=== PATIENT | female | born 1960 | race Caucasian/White ===

== ENCOUNTER 2022-03-17 06:47 | Inpatient (IN) ==
--- NOTE | 2022-03-17 07:14 | Emergency Department Note ---
Impression & Plan Pulmonary emboli, Fall, DVT (deep venous thrombosis), Left rib fracture ED Provider Note NAME: DESIREE VÁSQUEZ AGE: 61 SEX: F : 1960 ARRIVES VIA: Ambulance INFORMANT: [Patient] ED PROVIDER(S): [Felipe Albarado MD] CHIEF COMPLAINT: Fall HISTORY OF PRESENT ILLNESS: The patient is a 61-year-old female with a history of liver disease. She is not on any blood thinning medications. She was in baseline health yesterday. Patient states that this morning, she rolled and fell out of bed. She was not aware she was so close to the edge. She struck her chin on a nightstand. She injured her left side. She presents for evaluation via EMS. The patient complains of some moderate pain across the left side mainly at the left chest and left flank. She has some left knee pain as well. She does not want pain medication. Patient is not short of breath. She denies any headache. She states her neck is a bit stiff but she has not noticed any posterior midline discomfort. No left upper extremity discomfort. The patient does have ascites from her cirrhosis, her abdomen is always distended, her legs are always swollen. REVIEW OF SYSTEMS: See HPI for pertinent positives and negatives. A total of ten systems were reviewed and were otherwise negative. PMHx/PSHx: See Below SOCIAL HISTORY: See Below. PHYSICAL EXAM: GENERAL: Patient is in no acute distress. HEENT: No acute trauma, normocephalic atraumatic, mucous membranes moist, no nasal congestion, no scleral icterus. NECK: No stridor, no adenopathy, nontender cervical spine, trachea is midline. LUNGS: Clear to auscultation bilaterally, no wheeze, no rhonchi, breath sounds equal. On there is a contusion to the left lateral breast, she is tender here. HEART: 2/6 systolic murmur, regular rate and rhythm. ABDOMEN: Soft, tender in the left upper quadrant, no contusion seen. The abdomen is distended consistent with her liver disease and ascites. EXTREMITIES: No cyanosis. She has moderate bilateral pedal edema. There are some chronic skin changes to both lower extremities. There is a contusion present to the lateral aspect of the left knee, she is tender here. No gross deformity to the left knee. No pain to move the left hip. NEUROLOGIC: Oriented x 3, no acute motor or sensory deficits, no focal weakness. SKIN: No rash, no jaundice, no diaphoresis. DIFFERENTIAL DIAGNOSIS: Fracture, dislocation, contusion, intra-abdominal bleeding, pneumothorax, in trathoracic injury, intracranial injury, compartment syndrome, rhabdomyolysis, as well as other pathologies. EMERGENCY DEPARTMENT COURSE/PROCEDURES: ECG: Indication was fall. The ECG shows a sinus tachycardia with a rate of 101. There is potential old anterior infarct. There are some inverted T waves noted in the inferior leads. No ST elevation, no PVCs. The QTc is 471. Compared to an ECG from 21 January 2022, the inferior T wave changes are bit more pronounced. Continuous Cardiac Monitoring: An order was placed for continuous cardiac monitoring. The monitor shows a rate of 99 with normal sinus rhythm. Critical Care Note: I have personally spent 51 minutes of critical care time in the direct management of this patient. This includes bedside care, interpretation of diagnostic studies, and testing, discussion with consultants, patient, and family members, and other required patient management activities. This 51 minutes is in excess of all separately billable procedures. MEDICAL DECISION MAKING: There is no leukocytosis. A very mild anemia was seen. There was a normal platelet count. INR is slightly elevated at 1.4, likely from her liver disease. There was an elevation to the creatinine consistent with some acute kidney injury/dehydration. Bilirubin was mildly elevated, likely from her liver disease. Urinalysis shows what seems to be contamination. COVID test was negative. ECG showed a sinus tachycardia, no ST elevation. Brain CT shows no acute bleed or mass-effect. C-spine CT shows no acute fracture. Chest and abdominal CTs were performed, there was no intra-abdominal traumatic injury, ascites was seen. She has 3 rib fractures on the left without pneumothorax or pulmonary contusion. She has findings incidentally of saddle pulmonary emboli. Left knee film does not show fracture or dislocation. Bilateral lower extremity ultrasound shows a DVT on the left. I did go back and talk with the patient. She now admits to some increased dyspnea in the last 24 or so hours. She has no history of previous DVT or PE. The patient was given a 500 cc saline bolus. She did not want anything for pain. She was given a bolus of IV heparin and placed on a heparin drip. I spoke with the vegetable harvest worker, Dr. Coppola. Anticoagulation is indicated. Hospitalization is indicated. The patient can stay at our hospital for care. I spoke to the patient about her findings, I spoke with case management. I did speak with the on-call hospitalist. In short, the patient has suffered left rib fractures from her fall out of bed. Incidentally, she was found to have extensive pulmonary emboli. She will be hospitalized. Past Med/Surg History Medical History Asthma Diabetes Hepatic cirrhosis Surgical History (Updated 03/17/22 @ 11:19 by Corrine Huizar PA-C) Hx of cholecystectomy Family History (Updated 03/17/22 @ 12:10 by Corrine Huizar PA-C) Mother Hypertension Father Hypertension COPD (chronic obstructive pulmonary disease) Social History Smoking Status: Never smoker Hx Alcohol Use: No Hx Substance Use: No Preferred Language: Indonesian Feels Safe at Home: Yes Allergies Allergies Allergy/AdvReac Type Severity Reaction Status Date / Time No Known Allergies Allergy Verified 03/17/22 09:05 Home Meds Home Medications Medication Instructions Recorded Confirmed albuterol sulfate 90 mcg/actuation 2 puff inhalation Q4 PRN Shortness 01/21/22 03/17/22 aerosol inhaler Of Breath Or Wheezing metformin 500 mg tablet 500 mg PO BIDM 01/21/22 03/17/22 furosemide 20 mg tablet 20 mg PO QAM 03/17/22 03/17/22 insulin glargine 100 unit/mL (3 10 unit subcut QA 03/17/22 03/17/22 mL) subcutaneous pen (Lantus Solostar U-100 Insulin) spironolactone 50 mg tablet 100 mg PO QAM 03/17/22 03/17/22 Results & Data (ED) Vital Signs Vital Signs - 24 hr 03/17/22 06:56 03/17/22 08:50 03/17/22 10:00 Temperature 36.4 C L Temperature Source Oral Pulse Rate 99 H Pulse Rate [Apical] 100 H 96 H Pulse Rhythm Regular Pulse Rhythm [Apical] Regular Regular Pulse Strength [Apical] Respiratory Rate 20 23 22 Respiratory Effort / Characteristics Non-Labored Spontaneous Non-Labored Spontaneous Spontaneous Respiratory Depth Normal Normal Respiratory Pattern Regular Regular Blood Pressure 152/112 H Blood Pressure [Right Arm] 149/93 H 140/72 Blood Pressure Mean 125 Blood Pressure Mean [Right Arm] 111 94 Blood Pressure Position Semi-fowlers Blood Pressure Position [Right Arm] Semi-fowlers Pulse Oximetry 99 92 94 Oxygen Delivery Method Room Air Room Air Room Air Sepsis Recent Fever Within 48 Hours No Sepsis New/Unexplained Change in Mental Status No Sepsis Action Taken by Nursing No Action Required 03/17/22 12:00 03/17/22 13:16 03/17/22 13:35 Temperature Temperature Source Pulse Rate 95 H Pulse Rate [Apical] 94 H 95 H Pulse Rhythm Pulse Rhythm [Apical] Regular Pulse Strength [Apical] Normal Respiratory Rate Respiratory Effort / Characteristics Spontaneous Spontaneous Respiratory Depth Respiratory Pattern Regular Regular Blood Pressure 115/76 Blood Pressure [Right Arm] 122/81 110/83 Blood Pressure Mean Blood Pressure Mean [Right Arm] 94 92 Blood Pressure Position Blood Pressure Position [Right Arm] Semi-fowlers Pulse Oximetry 93 94 96 Oxygen Delivery Method Room Air Room Air Room Air Sepsis Recent Fever Within 48 Hours Sepsis New/Unexplained Change in Mental Status Sepsis Action Taken by [facility] Medications Current Medication List: was personally reviewed by me Laboratory Data Attestation: I reviewed the patient's lab results. Result diagrams: 03/17/22 07:20 03/17/22 07:20 Lab Results 03/17/22 03/17/22 03/17/22 Range/Units 07:20 07:20 07:20 WBC 6.20 (4.8-10.8) K/ul RBC 3.90 L (3.93-5.22) M/uL Hgb 11.4 L (12.0-16.0) g/dl Hct 34.6 (34.1-44.9) % MCV 88.7 (80.0-100.0) fL MCH 29.2 (25.0-34.0) pg MCHC 32.9 (32.0-36.0) g/dL RDW Std Deviation 50.3 H (36.4-46.3) fL RDW Coeff of Samy 15.6 H (11.5-14.5) % Plt Count 175 (130-400) K/uL MPV 9.5 (9.4-12.3) fL PT 14.9 H (9.0-12.0) Seconds INR 1.4 H (0.9-1.1) APTT 30.2 (21.0-31.0) Seconds PTT Ratio 1.1 Sodium 136 (136-145) mmol/L Potassium 3.5 (3.5-5.1) mmol/L Chloride 96 L (98-107) mmol/L Carbon Dioxide 30 (21-32) mmol/L Anion Gap 10 (3-11) BUN 34 H (6-23) mg/dl Creatinine 1.63 H (0.6-1.2) mg/dl Est Cr Clr Drug Dosing 48.4 ml/min Est GFR ( Amer) 39.6 ml/min Est GFR (Non-Af Amer) 34.1 ml/min BUN/Creatinine Ratio 20.9 H (10-20) Glucose 130 H (70-99(Fasting)) mg/dl Calcium 8.9 (8.5-10.1) mg/dl Total Bilirubin 1.4 H (0.2-1.0) mg/dl AST 21 (13-39) U/L ALT 12 (7-52) U/L Alkaline Phosphatase 66 (34-104) U/L Troponin I High Sens (0-14) pg/ml Total Protein 7.1 (6.0-8.3) gm/dl Albumin 3.4 (3.4-5.0) gm/dl Globulin 3.7 (2.5-4.0) gm/dl Albumin/Globulin Ratio 0.9 (0.9-2) 25-OH Vitamin D Total (30-100) ng/ml Urine Color Urine Appearance (Clear) Urine pH (4.5-7.5) Ur Specific [place] (1.000-1.030) Urine Protein (Negative) Urine Glucose (UA) (Negative) Urine Ketones (Negative) Urine Blood (Negative) Urine Nitrite (Negative) Urine Bilirubin (Negative) Urine Urobilinogen (Negative) Ur Leukocyte Esterase (Negative) Urine WBC (Auto) (0-5) /hpf Urine RBC (Auto) (0-4) /hpf U Hyaline Cast (Auto) (0-5) /lpf U Epithel Cells (Auto) (0-5) /lpf Urine Bacteria (Auto) (Negative) SARS-CoV-2, RNA, NAAT (NEGATIVE) 03/17/22 03/17/22 03/17/22 Range/Units 07:50 11:30 11:30 WBC (4.8-10.8) K/ul RBC (3.93-5.22) M/uL Hgb (12.0-16.0) g/dl Hct (34.1-44.9) % MCV (80.0-100.0) fL MCH (25.0-34.0) pg MCHC (32.0-36.0) g/dL RDW Std Deviation (36.4-46.3) fL RDW Coeff of Samy (11.5-14.5) % Plt Count (130-400) K/uL MPV (9.4-12.3) fL PT (9.0-12.0) Seconds INR (0.9-1.1) APTT (21.0-31.0) Seconds PTT Ratio Sodium (136-145) mmol/L Potassium (3.5-5.1) mmol/L Chloride (98-107) mmol/L Carbon Dioxide (21-32) mmol/L Anion Gap (3-11) BUN (6-23) mg/dl Creatinine (0.6-1.2) mg/dl Est Cr Clr Drug Dosing ml/min Est GFR ( Amer) ml/min Est GFR (Non-Af Amer) ml/min BUN/Creatinine Ratio (10-20) Glucose (70-99(Fasting)) mg/dl Calcium (8.5-10.1) mg/dl Total Bilirubin (0.2-1.0) mg/dl AST (13-39) U/L ALT (7-52) U/L Alkaline Phosphatase (34-104) U/L Troponin I High Sens 27.9 H D (0-14) pg/ml Total Protein (6.0-8.3) gm/dl Albumin (3.4-5.0) gm/dl Globulin (2.5-4.0) gm/dl Albumin/Globulin Ratio (0.9-2) 25-OH Vitamin D Total 13.8 L (30-100) ng/ml Urine Color Dark Yellow Urine Appearance Clear (Clear) Urine pH 5.0 (4.5-7.5) Ur Specific [place] 1.018 (1.000-1.030) Urine Protein 1+ H (Negative) Urine Glucose (UA) Negative (Negative) Urine Ketones Trace H (Negative) Urine Blood Negative (Negative) Urine Nitrite Negative (Negative) Urine Bilirubin 1+ H (Negative) Urine Urobilinogen Negative (Negative) Ur Leukocyte Esterase 2+ H (Negative) Urine WBC (Auto) 5-10 H (0-5) /hpf Urine RBC (Auto) 5-10 H (0-4) /hpf U Hyaline Cast (Auto) 5-10 H (0-5) /lpf U Epithel Cells (Auto) >30 H (0-5) /lpf Urine Bacteria (Auto) 1+ H (Negative) SARS-CoV-2, RNA, NAAT (NEGATIVE) 03/17/22 Range/Units 11:50 WBC (4.8-10.8) K/ul RBC (3.93-5.22) M/uL Hgb (12.0-16.0) g/dl Hct (34.1-44.9) % MCV (80.0-100.0) fL MCH (25.0-34.0) pg MCHC (32.0-36.0) g/dL RDW Std Deviation (36.4-46.3) fL RDW Coeff of Samy (11.5-14.5) % Plt Count (130-400) K/uL MPV (9.4-12.3) fL PT (9.0-12.0) Seconds INR (0.9-1.1) APTT (21.0-31.0) Seconds PTT Ratio Sodium (136-145) mmol/L Potassium (3.5-5.1) mmol/L Chloride (98-107) mmol/L Carbon Dioxide (21-32) mmol/L Anion Gap (3-11) BUN (6-23) mg/dl Creatinine (0.6-1.2) mg/dl Est Cr Clr Drug Dosing ml/min Est GFR ( Amer) ml/min Est GFR (Non-Af Amer) ml/min BUN/Creatinine Ratio (10-20) Glucose (70-99(Fasting)) mg/dl Calcium (8.5-10.1) mg/dl Total Bilirubin (0.2-1.0) mg/dl AST (13-39) U/L ALT (7-52) U/L Alkaline Phosphatase (34-104) U/L Troponin I High Sens (0-14) pg/ml Total Protein (6.0-8.3) gm/dl Albumin (3.4-5.0) gm/dl Globulin (2.5-4.0) gm/dl Albumin/Globulin Ratio (0.9-2) 25-OH Vitamin D Total (30-100) ng/ml Urine Color Urine Appearance (Clear) Urine pH (4.5-7.5) Ur Specific [place] (1.000-1.030) Urine Protein (Negative) Urine Glucose (UA) (Negative) Urine Ketones (Negative) Urine Blood (Negative) Urine Nitrite (Negative) Urine Bilirubin (Negative) Urine Urobilinogen (Negative) Ur Leukocyte Esterase (Negative) Urine WBC (Auto) (0-5) /hpf Urine RBC (Auto) (0-4) /hpf U Hyaline Cast (Auto) (0-5) /lpf U Epithel Cells (Auto) (0-5) /lpf Urine Bacteria (Auto) (Negative) SARS-CoV-2, RNA, NAAT NEGATIVE (NEGATIVE) Administered Medications Heparin Sodium/Dextrose (Heparin Sodium/Dextrose) 25,000 units in 500 mls @ 0.02 mls/hr IV .Q24H LETI; Protocol Stop: 04/16/22 10:29 Last Admin: 03/17/22 10:31 Dose: 1,500 units/hr, 30 mls/hr Documented By: RAYSA Co-signed By: GRICELDA Ceftriaxone Sodium 2,000 mg/ (Dextrose) 70 mls @ 140 mls/hr IV DAILY LETI; Protocol Stop: 03/27/22 11:14 Last Infusion: 03/17/22 12:59 Dose: 0 mls/hr Documented By: Admin: 03/17/22 12:05 Dose: 140 mls/hr Documented By: GRICELDA Albumin Human (Albumin 25% 100 Ml) 25 gm in 100 mls @ 50 mls/hr IV Q8H LETI Stop: 03/19/22 06:29 Last Admin: 03/17/22 13:32 Dose: 50 mls/hr Documented By: RAYSA Discontinued Medications Furosemide (Furosemide Inj 20 Mg/2 Ml Vial) 20 mg IV ONE ONE Stop: 03/17/22 12:34 Last Admin: 03/17/22 13:32 Dose: 20 mg Documented By: RAYSA Heparin Sodium (Porcine) (Heparin Sod (Porcine) 1000 Unit/Ml) 5,000 units IV NOW ONE Stop: 03/17/22 10:16 Last Admin: 03/17/22 10:28 Dose: 5,000 units Documented By: RAYSA Co-signed By: GRICELDA Heparin Sodium/Dextrose (Heparin Iv Adult Wt-Based Standard With Bolus Protocol) 1 each IV NOW STA; Protocol Stop: 03/17/22 10:07 Last Admin: 03/17/22 10:34 Dose: Not Given Documented By: RAYSA Sodium Chloride (Nss 1000ml) 500 mls @ 999 mls/hr IV .Q31M ONE Stop: 03/17/22 08:24 Last Infusion: 03/17/22 09:56 Dose: 0 mls/hr Documented By: Admin: 03/17/22 08:29 Dose: 999 mls/hr Documented By: RAYSA Ioversol (Optiray 320 100ml) 93 ml IV ONCE ONE Stop: 03/17/22 08:16 Last Admin: 03/17/22 08:04 Dose: 93 ml Documented By: MARCUS Imaging Data Radiologist's Impression: Abdomen/Pelvis CT 03/17/22 07:[address] WITH CONTRAST, ABDOMEN AND PELVIS CT WITH INTRAVENOUS CONTRAST CT DOSE: 3804.89 mGy.cm HISTORY: fall, left chest pain. Left flank pain. TECHNIQUE: Multiaxial CT images of the chest, abdomen, and pelvis were performed following the intravenous administration of contrast. A dose lowering technique was utilized adhering to the principles of ALARA. COMPARISON: Chest CTA and abdomen pelvis CT 01/21/2022. FINDINGS: Chest CT: There is an old moderate superior endplate compression deformity at T3. There is a subacute mild superior endplate compression fracture at T4. No associated retropulsion. Healing right anterior rib fractures are again noted. There are acute left anterior third through fifth rib fractures. There are few additional healing left anterior rib fractures also noted. Mild elevation the right hemidiaphragm. The central airways are patent. No pneumothorax. No pleural effusions. Bibasilar linear densities consistent with subsegmental atelectasis. Otherwise, no new focal lung consolidations to suggest pneumonia. No evidence for pulmonary edema. There is a 1 cm left thyroid nodule. This does not meet CT criteria for follow-up. Mild body wall edema with left breast skin thickening. No change in the anterior diaphragmatic lymphadenopathy. Subcentimeter distal paraesophageal lymph nodes are again noted. There is no hilar lymphadenopathy. Normal esophagus. The heart is normal in size. No evidence for right-sided heart strain. There is extensive bilateral pulmonary emboli with associated subtle embolus at the main pulmonary arteries. Abdomen/pelvis CT: There is a chronic moderate to severe superior endplate comp ression deformity at L4, unchanged. No pneumoperitoneum. No pneumatosis. Moderate to severe body wall edema is again noted. There is pelvic floor collapse. The bladder is decompressed. The uterus and bilateral adnexa are unremarkable. No bowel wall thickening or obstruction. There is a large amount of ascites which has slightly progressed. Cirrhotic liver and splenomegaly is again noted. The adrenal glands, pancreas, and kidneys unremarkable. No hydronephrosis. The main portal vein is patent. Mild periportal lymphadenopathy remains unchanged. Normal caliber abdominal aorta. Cholecystectomy. Stable partially calcified pelvic/inguinal lymph nodes. IMPRESSION: 1. Extensive bilateral pulmonary emboli including a saddle embolus within the main pulmonary arteries. No evidence for right-sided heart strain at this time. 2. Acute left anterior third through fifth rib fractures. No pneumothorax. 3. Additional subacute to chronic fractures within the chest and abdomen as described above. 4. Cirrhotic liver with splenomegaly and a large amount of ascites. This has slightly progressed. 5. Moderate to severe body wall edema again noted. 6. Mildly enlarged anterior diaphragmatic and periportal lymph nodes remain unchanged. ACT 112: Negative or not required by law. Electronically signed by: Abe Florentino M.D. 03/17/2022 9:[address] 03/17/22 07:05 CT SCAN OF THE CERVICAL SPINE CLINICAL HISTORY: Trauma. Fall. COMPARISON STUDY: No priors. TECHNIQUE: CT scan of the cervical spine is performed from the skull base to the upper thoracic spine. Images are reviewed in the axial, sagittal, and coronal planes. IV contrast was not administered for this examination. A dose lowering technique was utilized adhering to the principles of ALARA. FINDINGS: Skeletal structures: The skeletal structures are osteopenic. There is no evidence of fracture or subluxation involving the cervical spine. Vertebral body height and alignment are maintained. There is straightening of the cervical lordosis. The odontoid process and lateral masses are intact. The atlantoaxial articulation is preserved noting minimal productive degenerative change. The spinous processes appear intact. Intervertebral discs: There is moderate disc space narrowing at C5-C6. Mild na rrowing is seen at the remaining cervical levels. Central canal: Posterior disc osteophyte complexes at C4-C5 and C5-C6 may contribute to mild acquired compromise of the central canal. Soft tissues: The prevertebral and paraspinous soft tissues are within normal limits. There is atherosclerotic calcification of the carotid bulbs. Calvarium: The visualized calvarium at the skull base appears intact. Brain parenchyma: Partially visualized brain parenchyma at the skull base is within normal limits. Sinuses and mastoids: Trace fluid is noted in the sphenoid sinuses. The mastoid air cells are well pneumatized. Lung apices: Clear as visualized. IMPRESSION: 1. There is no evidence of fracture or subluxation involving the cervical spine. 2. Osteopenia and mild spondylotic change as above. ACT 112: Negative or not required by law. Electronically signed by: Felipe Aguirre M.D. 03/17/2022 8:[address] 03/17/22 07:[address] WITH CONTRAST, ABDOMEN AND PELVIS CT WITH INTRAVENOUS CONTRAST CT DOSE: 3804.89 mGy.cm HISTORY: fall, left chest pain. Left flank pain. TECHNIQUE: Multiaxial CT images of the chest, abdomen, and pelvis were performed following the intravenous administration of contrast. A dose lowering technique was utilized adhering to the principles of ALARA. COMPARISON: Chest CTA and abdomen pelvis CT 01/21/2022. FINDINGS: Chest CT: There is an old moderate superior endplate compression deformity at T3. There is a subacute mild superior endplate compression fracture at T4. No associated retropulsion. Healing right anterior rib fractures are again noted. There are acute left anterior third through fifth rib fractures. There are few additional healing left anterior rib fractures also noted. Mild elevation the right hemidiaphragm. The central airways are patent. No pneumothorax. No pleural effusions. Bibasilar linear densities consistent with subsegmental atelectasis. Otherwise, no new focal lung consolidations to suggest pneumonia. No evidence for pulmonary edema. There is a 1 cm left thyroid nodule. This does not meet CT criteria for follow-up. Mild body wall edema with left breast skin thickening. No change in the anterior diaphragmatic lymphadenopathy. Subcentimeter distal paraesophageal lymph nodes are again noted. There is no hilar lymphadenopathy. Normal esophagus. The heart is normal in size. No evidence for right-sided heart strain. There is extensive bilateral pulmonary emboli with associated subtle embolus at the main pulmonary arteries. Abdomen/pelvis CT: There is a chronic moderate to severe superior endplate compression deformity at L4, unchanged. No pneumoperitoneum. No pneumatosis. Moderate to severe body wall edema is again noted. There is pelvic floor collapse. The bladder is decompressed. The uterus and bilateral adnexa are unrem arkable. No bowel wall thickening or obstruction. There is a large amount of ascites which has slightly progressed. Cirrhotic liver and splenomegaly is again noted. The adrenal glands, pancreas, and kidneys unremarkable. No hydronephrosis. The main portal vein is patent. Mild periportal lymphadenopathy remains unchanged. Normal caliber abdominal aorta. Cholecystectomy. Stable partially calcified pelvic/inguinal lymph nodes. IMPRESSION: 1. Extensive bilateral pulmonary emboli including a saddle embolus within the main pulmonary arteries. No evidence for right-sided heart strain at this time. 2. Acute left anterior third through fifth rib fractures. No pneumothorax. 3. Additional subacute to chronic fractures within the chest and abdomen as described above. 4. Cirrhotic liver with splenomegaly and a large amount of ascites. This has slightly progressed. 5. Moderate to severe body wall edema again noted. 6. Mildly enlarged anterior diaphragmatic and periportal lymph nodes remain unchanged. ACT 112: Negative or not required by law. Electronically signed by: Abe Florentino M.D. 03/17/2022 9:[address] 03/17/22 07:05 CT SCAN OF THE BRAIN WITHOUT IV CONTRAST CLINICAL HISTORY: Fall. COMPARISON STUDY: No priors. TECHNIQUE: Unenhanced axial CT scan of the brain is performed from the vertex to the skull base. A dose lowering technique was utilized adhering to the principles of ALARA. FINDINGS: Brain parenchyma: There is age-related involutional change noting minimal subcortical and periventricular microangiopathic disease. There is no hemorrhage, mass effect, or evidence of acute territorial ischemia by CT criteria. Mccracken-white matter differentiation is preserved. No extra-axial fluid collection is seen. Chronic lacunar infarcts are noted within both basal ganglia as well as the right thalamus. Ventricles, sulci, cisterns: Prominent secondary to involutional change. Intracranial vasculature: There is atherosclerotic calcification of the cavernous carotid and vertebral arteries. Calvarium: The skeletal structures are osteopenic. No depressed calvarial fracture is identified. Sinuses and mastoids: There is trace fluid within the sphenoid sinuses. The remaining visualized paranasal sinuses are clear. The mastoid air cells are well pneumatized. Orbits: The bony orbits are grossly intact. IMPRESSION: There is no hemorrhage, mass effect, or evidence of acute territorial ischemia by CT criteria. ACT 112: Negative or not required by law. Electronically signed by: Felipe Aguirre M.D. 03/17/2022 8:19 AM Knee X-Ray 03/17/22 07:05 LEFT KNEE 3 VIEWS CLINICAL HISTORY: Fall with left knee pain and swelling. FINDINGS: AP, crosstable lateral, and sunrise views of the left knee are obtained. No prior studies are available for comparison at the time of dictation. The skeletal structures are osteopenic. No fracture is seen. The joint spaces of the knee are maintained. A small joint effusion is noted. Soft tissue edema is present throughout the visualized left lower extremity. IMPRESSION: 1. Soft tissue edema with no acute bony abnormality identified. 2. Small joint effusion. Electronically signed by: Felipe Aguirre M.D. 03/17/2022 8:36 AM Venous Doppler Study 03/17/22 10:11 US venous doppler LE BI CLINICAL HISTORY: pe TECHNIQUE: Bilateral lower extremity real-time compression venous ultrasound with Color Doppler imaging. Utilizing real-time ultrasonic imaging multiple real time high-resolution ultrasonic images with compression and noncompression maneuvers of the deep venous system in addition to color doppler imaging were performed from the common femoral vein through the proximal calf veins. COMPARISON: Comparison is made to Doppler ultrasound 01/06/2022 FINDINGS: There is a deep venous thrombus in the left superficial femoral vein in one of the 2 vessels, which also extends into the popliteal vein. Limited evaluation of the calf vessels bilaterally due to overlying edema and tenderness. Impression: 1. Acute appearing occlusive thrombus in the left lower extremity superficial femoral and popliteal veins. 2. Soft tissue edema in the bilateral calf. No definite thrombus of the calf vessels despite limited evaluation. ACT 112: Negative or not required by law. Electronically signed by: Mihai Motley M.D. 03/17/2022 11:46 AM Discharge Plan Visit Data Chief Complaint: Fall ED Provider: Felipe Albarado Discharge Problem: Pulmonary emboli, Fall, DVT (deep venous thrombosis), Left rib fracture Patient Disposition: Admitted As Inpatient Condition: Fair Discharge Instructions Interventions: ED Discharge Assessment Last Done: 03/17/22 13:35 Forms Stand Alone Forms: My dianboom Prescriptions Prescriptions: No Action metformin 500 mg tablet 500 mg PO BIDM albuterol sulfate 90 mcg/actuation HFA aerosol inhaler 2 puff INHALATION Q4 PRN (Reason: Shortness Of Breath Or Wheezing) furosemide 20 mg tablet 20 mg PO QAM spironolactone 50 mg tablet 100 mg PO QAM insulin glargine [Lantus Solostar U-100 Insulin] 100 unit/mL (3 mL) insulin pen 10 unit SUBCUT QAM Referrals Referrals: Jonathan Rees MD [Primary Care Provider] -
[2022-03-17 07:34] LABS: Hematocrit (blood only) 34.6 % (34.1-44.9); Hemoglobin 11.4 g/dl (12.0-16.0); Mean Corpuscular Hemoglobin 29.2 pg (25.0-34.0); Mean Corpuscular Hgb Conc 32.9 g/dL (32.0-36.0); Mean Corpuscular Volume 88.7 fL (80.0-100.0); Mean Platelet Volume 9.5 fL (9.4-12.3); Platelet Count 175 K/uL (130-400); RDW Coefficient of Variation 15.6 % (11.5-14.5); RDW Standard Deviation 50.3 fL (36.4-46.3)
[2022-03-17 07:46] LABS: INR 1.4 (0.9-1.1); Partial Thromboplastin Ratio 1.1; Partial Thromboplastin Time 30.2 Seconds (21.0-31.0); Prothrombin Time 14.9 Seconds (9.0-12.0)
[2022-03-17 07:52] LABS: Albumin Globulin Ratio 0.9 (0.9-2); Albumin Level 3.4 gm/dl (3.4-5.0); BUN Creatinine Ratio 20.9 (10-20); Bilirubin,Total 1.4 mg/dl (0.2-1.0); Calcium 8.9 mg/dl (8.5-10.1); Creatinine Clr Calc Pharmacy 48.4 ml/min; Est GFR (African American) 39.6 ml/min; Est GFR (Non-African American) 34.1 ml/min; Globulin 3.7 gm/dl (2.5-4.0); Potassium 3.5 mmol/L (3.5-5.1); Total Protein 7.1 gm/dl (6.0-8.3)
[2022-03-17] MEDS ORDERED: SODIUM CHLORIDE 0.9% 1000ML 500 ML IV ONE (07:54)
[2022-03-17] MEDS ORDERED: OPTIRAY 320 100ml IV ONE (08:15)
--- NOTE | 2022-03-17 08:21 | CT Scan Report ---
CT SCAN OF THE BRAIN WITHOUT IV CONTRAST CLINICAL HISTORY: Fall. COMPARISON STUDY: No priors. TECHNIQUE: Unenhanced axial CT scan of the brain is performed from the vertex to the skull base. A do se lowering technique was utilized adhering to the principles of ALARA. FINDINGS: Brain parenchyma: There is age-related involutional change noting minimal subcortical and periventri cular microangiopathic disease. There is no hemorrhage, mass effect, or evidence of acute territorial ischemia by CT criteria. Mccracken-white matter differentiation is preserved. No extra-axial fluid collec tion is seen. Chronic lacunar infarcts are noted within both basal ganglia as well as the right thala mus. Ventricles, sulci, cisterns: Prominent secondary to involutional change. Intracranial vasculature: There is atherosclerotic calcification of the cavernous carotid and vertebr al arteries. Calvarium: The skeletal structures are osteopenic. No depressed calvarial fracture is identified. Sinuses and mastoids: There is trace fluid within the sphenoid sinuses. The remaining visualized para nasal sinuses are clear. The mastoid air cells are well pneumatized. Orbits: The bony orbits are grossly intact. IMPRESSION: There is no hemorrhage, mass effect, or evidence of acute territorial ischemia by CT adilia cleary. ACT 112: Negative or not required by law. Electronically signed by: Felipe Aguirre M.D. 03/17/2022 8:19 AM
--- NOTE | 2022-03-17 08:25 | CT Scan Report ---
CT SCAN OF THE CERVICAL SPINE CLINICAL HISTORY: Trauma. Fall. COMPARISON STUDY: No priors. TECHNIQUE: CT scan of the cervical spine is performed from the skull base to the upper thoracic spine . Images are reviewed in the axial, sagittal, and coronal planes. IV contrast was not administered fo r this examination. A dose lowering technique was utilized adhering to the principles of ALARA. FINDINGS: Skeletal structures: The skeletal structures are osteopenic. There is no evidence of fracture or subl uxation involving the cervical spine. Vertebral body height and alignment are maintained. There is s traightening of the cervical lordosis. The odontoid process and lateral masses are intact. The atlant oaxial articulation is preserved noting minimal productive degenerative change. The spinous processes appear intact. Intervertebral discs: There is moderate disc space narrowing at C5-C6. Mild narrowing is seen at the remaining cervical levels. Central canal: Posterior disc osteophyte complexes at C4-C5 and C5-C6 may contribute to mild acquired compromise of the central canal. Soft tissues: The prevertebral and paraspinous soft tissues are within normal limits. There is athero sclerotic calcification of the carotid bulbs. Calvarium: The visualized calvarium at the skull base appears intact. Brain parenchyma: Partially visualized brain parenchyma at the skull base is within normal limits. Sinuses and mastoids: Trace fluid is noted in the sphenoid sinuses. The mastoid air cells are well pn eumatized. Lung apices: Clear as visualized. IMPRESSION: 1. There is no evidence of fracture or subluxation involving the cervical spine. 2. Osteopenia and mild spondylotic change as above. ACT 112: Negative or not required by law. Electronically signed by: Felipe Aguirre M.D. 03/17/2022 8:23 AM
[2022-03-17 08:31] LABS: Appearance Urine Clear (Clear); Bacteria Urine Automated 1+ (Negative); Blood Urine Negative (Negative); Color Urine Dark Yellow; Epithelial Cell Urine Auto >30 /lpf (0-5); Glucose Urine UA Negative (Negative); Ketones Urine Trace (Negative); Leukocyte Esterase Urine 2+ (Negative); Nitrite Urine Negative (Negative); Protein Urine 1+ (Negative); Specific Gravity Urine 1.018 (1.000-1.030); Urobilinogen Urine Negative (Negative)
[2022-03-17 08:32] LABS: Bilirubin Urine 1+ (Negative)
--- NOTE | 2022-03-17 08:37 | XRay Report ---
LEFT KNEE 3 VIEWS CLINICAL HISTORY: Fall with left knee pain and swelling. FINDINGS: AP, crosstable lateral, and sunrise views of the left knee are obtained. No prior studies a re available for comparison at the time of dictation. The skeletal structures are osteopenic. No frac ture is seen. The joint spaces of the knee are maintained. A small joint effusion is noted. Soft tiss ue edema is present throughout the visualized left lower extremity. IMPRESSION: 1. Soft tissue edema with no acute bony abnormality identified. 2. Small joint effusion. Electronically signed by: Felipe Aguirre M.D. 03/17/2022 8:36 AM
--- NOTE | 2022-03-17 09:38 | CT Scan Report ---
CHEST CT WITH CONTRAST, ABDOMEN AND PELVIS CT WITH INTRAVENOUS CONTRAST CT DOSE: 3804.89 mGy.cm HISTORY: fall, left chest pain. Left flank pain. TECHNIQUE: Multiaxial CT images of the chest, abdomen, and pelvis were performed following the intrav enous administration of contrast. A dose lowering technique was utilized adhering to the principles of ALARA. COMPARISON: Chest CTA and abdomen pelvis CT 01/21/2022. FINDINGS: Chest CT: There is an old moderate superior endplate compression deformity at T3. There is a subacute mild superior endplate compression fracture at T4. No associated retropulsion. Healing right anterio r rib fractures are again noted. There are acute left anterior third through fifth rib fractures. The re are few additional healing left anterior rib fractures also noted. Mild elevation the right hemidi aphragm. The central airways are patent. No pneumothorax. No pleural effusions. Bibasilar linear dens ities consistent with subsegmental atelectasis. Otherwise, no new focal lung consolidations to sugges t pneumonia. No evidence for pulmonary edema. There is a 1 cm left thyroid nodule. This does not meet CT criteria for follow-up. Mild body wall edema with left breast skin thickening. No change in the a nterior diaphragmatic lymphadenopathy. Subcentimeter distal paraesophageal lymph nodes are again note d. There is no hilar lymphadenopathy. Normal esophagus. The heart is normal in size. No evidence for right-sided heart strain. There is extensive bilateral pulmonary emboli with associated subtle embolu s at the main pulmonary arteries. Abdomen/pelvis CT: There is a chronic moderate to severe superior endplate compression deformity at L 4, unchanged. No pneumoperitoneum. No pneumatosis. Moderate to severe body wall edema is again noted. There is pelvic floor collapse. The bladder is decompressed. The uterus and bilateral adnexa are unr emarkable. No bowel wall thickening or obstruction. There is a large amount of ascites which has slig htly progressed. Cirrhotic liver and splenomegaly is again noted. The adrenal glands, pancreas, and k idneys unremarkable. No hydronephrosis. The main portal vein is patent. Mild periportal lymphadenopat hy remains unchanged. Normal caliber abdominal aorta. Cholecystectomy. Stable partially calcified pel brandi/inguinal lymph nodes. IMPRESSION: 1. Extensive bilateral pulmonary emboli including a saddle embolus within the main pulmonary arteries . No evidence for right-sided heart strain at this time. 2. Acute left anterior third through fifth rib fractures. No pneumothorax. 3. Additional subacute to chronic fractures within the chest and abdomen as described above. 4. Cirrhotic liver with splenomegaly and a large amount of ascites. This has slightly progressed. 5. Moderate to severe body wall edema again noted. 6. Mildly enlarged anterior diaphragmatic and periportal lymph nodes remain unchanged. ACT 112: Negative or not required by law. Electronically signed by: Abe Florentino M.D. 03/17/2022 9:36 AM
--- NOTE | 2022-03-17 09:42 | Electrocardiogram Report ---
Test Reason : Blood Pressure : / mmHG Vent. Rate : 101 BPM Atrial Rate : 101 BPM P-R Int : 160 ms QRS Dur : 076 ms QT Int : 364 ms P-R-T Axes : 028 073 001 degrees QTc Int : 471 ms Poor data quality, interpretation may be adversely affected Sinus tachycardia Abnormal ECG When compared with ECG of 21-JAN-2022 11:29, Premature supraventricular complexes are no longer Present Confirmed by Jorge Warren ([id number]) on 03/17/2022 9:41:53 AM Referred By: REFERRED SELF Confirmed By:Jorge Warren
[2022-03-17] MEDS ORDERED: Heparin IV Adult Wt-Based Standard WITH Bolus Protocol IV STA (10:06)
[2022-03-17] MEDS ORDERED: HEPARIN SOD (PORCINE) 1000 UNIT/ML IV ONE ×2 (10:15→10:22)
[2022-03-17] MEDS: HEPARIN SODIUM/DEXTROSE 25,000 UNITS/500 ML BAG IV SCH (10:31)
--- NOTE | 2022-03-17 10:56 | History & Physical Report ---
Date of Service March 17, 2022 Assessment & Plan (1) Saddle pulmonary embolus: Plan: - Admit to tele - Pt was seen by pulmonary as an outpatient on 01/14/2022 where a CTA with ordered due to dyspnea on exertion and elevated D-dimer, at that point time there was no CTA evidence for PE and no acute chest findings. -She is not on any form of anticoagulation at home--> heparin gtt now ordered, will need to transition to DOAC prior to DC - Consult pulm for possible needs for TPA - Pt is not tachycardic, HR in 90s, or hypoxic, O2 sats are 94% on RA. She denies shortness of breath presently. - CTA findings: 1. Extensive bilateral pulmonary emboli including a saddle embolus within the main pulmonary arteries. No evidence for right-sided heart strain at this time. 2. Acute left anterior third through fifth rib fractures. No pneumothorax. 3. Additional subacute to chronic fractures within the chest and abdomen as described above. 4. Cirrhotic liver with splenomegaly and a large amount of ascites. This has slightly progressed. 5. Moderate to severe body wall edema again noted. 6. Mildly enlarged anterior diaphragmatic and periportal lymph nodes remain unchanged. - U/S BLE pending - Hx of COVID infection in Jul was vaccinated in 2020 x 2 doses (2) Hepatic cirrhosis: Plan: - Hx of such - Nonalcoholic, hepatitis panel was conducted 01/27/2022 as reviewed in outpatient epic and is negative for hep A, B, C - MELD score 15 today, previously 13 - Scheduled with Dr. Mace as outpatient with hepatology on 05/05/22: In end of December pt was placed on lasix 20 mg daily and spironolactone 50 mg daily, lasix was increased to 40 mg daily on 02/11, now she is up to lasix 40 mg daily and spironolactone 100 mg daily. Pt still with severe edema of BLE, possibly due to worsening clot burden? Acute occlusive thrombus in the LLE superficial femoral nd popliteal veins. - Consider abdominal ultrasound for possible paracentesis, albumin level is 3.4 today (3) Diabetes: Plan: -Last A1c was 9.1 on 01/13/2022, no need to recheck at this time -Holding metformin, can cover with insulin sliding scale and Accu-Cheks ACHS -Continue Lantus daily 10 units, allow diet (4) Asthma: Plan: -Continue albuterol sulfate -Not hypoxic further respiratory care as above (5) Rib fractures: Plan: - Will allow percocet 5/325 Q8H prn for moderate to severe pain, and lidocaine p atch topically - Incentive spirometry and flutter ordered to encourage lung inflation (6) BLAIRE (acute kidney injury): Plan: - Cr. 1.63, BUN 34 - Appears her baseline is around 1.1-1.2 (7) Fall: Plan: - Sounds like this was mechanical this time, no syncopal event, monitor for hx of frequent falls with precautions - PT/OT oconsults DVT ppx: - teds, scds CODE: Full code Dispo: From home, likely to remain in the hospital x 1-2 days (8) UTI (urinary tract infection): History of Present Illness Chief Complaint: Fall Primary Care Provider: Jonathan Rees MD This is a 61-year-old female with DM type II, hx of COVID infection in Jul 2020 with sequela of hepatic cirrhosis with ascites, obesity with BMI of 39.3, who presents today after a fall out of bed this morning. Subsequently she fell out of bed, accidentally and just thought she was more in the center of the bed. She denies any presyncopal prodrome, dizziness, lightheadedness. Her mother, Idalia, who lives in the same home with her, and is present at bedside, heard her fall out of bed. Patient sustained injury to her left side, left elbow and hit her chin on the bedside table. She reports having some pain there and it is difficult to take deep breaths. She also notes that she has been having shortness of breath for about the past month, and that she is significantly winded with minimal ADLs. In general she is sedentary, and walks from kitchen to living room, to bedroom as her main activity. She denies any chest pain or shortness of breath. She denies any history of alcohol use or smoking. 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 Her abdomen seems to remain distended, and has been placed on water pills to help reduce the amount of swelling in her stomach and in her legs. She is abiding by a low sodium diet. Denies changes in dietary habits, bowel movements or complaints with urination including dysuria, increased frequency or hematuria. She denies fever sweats or chills. Today her CT shows left sided rib fractures involving rib 3,4,5 which are new, but also showed that she had new saddle PE with multiple segmental pulmonary emboli, she is not on anticoagulation at home. Pt notes that she may have noticed some worsening shortness of breath within the past 24 hours. Interestingly she was seen by Pulm on 01/14/22 where she had some complaints of shortness of breath and was scanned for CTPE however the study was negative at that time. Pt has been taking her medications including spironolactone and Lasix as prescribed, both of these medications have been titrated up since she was initially placed on them at the end of December. Allergies Allergy/AdvReac Type Severity Reaction Status Date / Time No Known Allergies Allergy Verified 03/17/22 09:05 Home Medications Medication Instructions Recorded Confirmed Type albuterol sulfate 90 mcg/actuation 2 puff inhalation Q4 PRN Shortness 01/21/22 03/17/22 History aerosol inhaler Of Breath Or Wheezing metformin 500 mg tablet 500 mg PO BIDM 01/21/22 03/17/22 History furosemide 20 mg tablet 20 mg PO QAM 03/17/22 03/17/22 History insulin glargine 100 unit/mL (3 10 unit subcut QAM 03/17/22 03/17/22 History mL) subcutaneous pen (Lantus Solostar U-100 Insulin) spironolactone 50 mg tablet 100 mg PO QAM 03/17/22 03/17/22 History Past Med/Surg History Medical History Asthma Diabetes Hepatic cirrhosis Surgical History (Updated 03/17/22 @ 11:19 by Corrine Huizar PA-C) Hx of cholecystectomy Family History (Updated 03/17/22 @ 12:10 by Corrine Huizar PA-C) Mother Hypertension Father Hypertension COPD (chronic obstructive pulmonary disease) Social History Smoking Status: Never smoker Second Hand Exposure: No; Do You Dip or Chew Tobacco: No; Tobacco Cessation Education Requested by Patient: No Hx Alcohol Use: No Hx Substance Use: No Preferred Language: Ivorian Communication Ability: Effective Beliefs That Will Affect Care: None Current Living Situation: Parent Other Information That Helps Us Care for You: Yes Feels Safe at Home: Yes Safety Concerns: Feels Safe At This Time Assistive Devices: Walker Review of Systems Review of Systems: Constitutional: No fever, sweats or chills Eyes: No diplopia, no worsening or blurred vision ENT: normal hearing, no trouble swallowing Respiratory: No cough, sputum, dyspnea at rest or, + dyspnea on exertion and with minimal ADLs Cardiovascular: No chest pain, tightness or palpitations Abdomen: No pain, nausea, vomiting, diarrhea or constipation, + abdominal distention Musculoskeletal: No joint pain, calf pain, + lower extremity swelling : No pain with urination, increased frequency or hematuria Neurologic: No weakness, numbness/tingling, +loss of balance Psychiatric: No anxiety or depression Skin: No rash or itch Physical Exam Physical Exam: General: awake, alert, no apparent distress, obese with BMI of 39.3, + abdominal distention Head: Normocephalic, atraumatic ENT: PERRL, EOMI, no pharyngeal exudate, mucous membranes moist Chest: Clear to auscultation, on room air, no adventitious breath sounds, + pain with deep breaths Cardiac: Regular rate and rhythm, + loud systolic ejection murmur grade 3/6, no JVD, normal peripheral pulses, good capillary refill Abdominal: NABS x 4 quadrants, soft, +distended, + hepatomegaly palpable, no fluid wave, nontender to palpation, no rebound or guarding Extremities: Severe, 3+ pitting peripheral edema bilaterally up to above the knee, no erythema, calfs nontender to palpation Psych: Normal mood and affect Neuro: AAO x 3, strength intact bilaterally and rated 5/5, no motor deficits, speech is clear, no peripheral sensory deficits Results & Data Results & Data ([facility]) Vital Signs (Past 12 Hours) Vital Signs Temp Pulse Pulse Resp BP BP Pulse Ox 03/17/22 10:00 96 H 22 140/72 94 03/17/22 08:50 100 H 23 149/93 H 92 03/17/22 06:56 36.4 C L 99 H 20 152/112 H 99 O2 Del Method 03/17/22 10:00 Room Air 03/17/22 08:50 Room Air 03/17/22 06:56 Room Air Laboratory Results 03/17/22 11:30 Aerobic Blood Culture - Pending Blood Anaerobic Blood Culture - Pending 03/17/22 11:39 Aerobic Blood Culture - Pending Blood Anaerobic Blood Culture - Pending 03/17/22 07:50 Urine Culture - Pending Urine,Clean Catch 03/17/22 03/17/22 03/17/22 11:30 07:50 07:20 WBC RBC Hgb Hct MCV MCH MCHC RDW Std Deviation RDW Coeff of Samy Plt Count MPV PT INR APTT PTT Ratio Sodium 136 Potassium 3.5 Chloride 96 L Carbon Dioxide 30 Anion Gap 10 BUN 34 H Creatinine 1.63 H Est Cr Clr Drug Dosing 48.4 Est GFR ( Amer) 39.6 Est GFR (Non-Af Amer) 34.1 BUN/Creatinine Ratio 20.9 H Glucose 130 H Calcium 8.9 Total Bilirubin 1.4 H AST 21 ALT 12 Alkaline Phosphatase 66 Troponin I High Sens 27.9 H D Total Protein 7.1 Albumin 3.4 Globulin 3.7 Albumin/Globulin Ratio 0.9 Urine Color Dark Yellow Urine Appearance Clear Urine pH 5.0 Ur Specific [place] 1.018 Urine Protein 1+ H Urine Glucose (UA) Negative Urine Ketones Trace H Urine Blood Negative Urine Nitrite Negative Urine Bilirubin 1+ H Urine Urobilinogen Negative Ur Leukocyte Esterase 2+ H Urine WBC (Auto) 5-10 H Urine RBC (Auto) 5-10 H U Hyaline Cast (Auto) 5-10 H U Epithel Cells (Auto) >30 H Urine Bacteria (Auto) 1+ H 03/17/22 03/17/22 07:20 07:20 WBC 6.20 RBC 3.90 L Hgb 11.4 L Hct 34.6 MCV 88.7 MCH 29.2 MCHC 32.9 RDW Std Deviation 50.3 H RDW Coeff of Samy 15.6 H Plt Count 175 MPV 9.5 PT 14.9 H INR 1.4 H APTT 30.2 PTT Ratio 1.1 Sodium Potassium Chloride Carbon Dioxide Anion Gap BUN Creatinine Est Cr Clr Drug Dosing Est GFR ( Amer) Est GFR (Non-Af Amer) BUN/Creatinine Ratio Glucose Calcium Total Bilirubin AST ALT Alkaline Phosphatase Troponin I High Sens Total Protein Albumin Globulin Albumin/Globulin Ratio Urine Color Urine Appearance Urine pH Ur Specific [place] Urine Protein Urine Glucose (UA) Urine Ketones Urine Blood Urine Nitrite Urine Bilirubin Urine Urobilinogen Ur Leukocyte Esterase Urine WBC (Auto) Urine RBC (Auto) U Hyaline Cast (Auto) U Epithel Cells (Auto) Urine Bacteria (Auto) Diagnostic Findings Abdomen/Pelvis CT 03/17/22 07:[address] WITH CONTRAST, ABDOMEN AND PELVIS CT WITH INTRAVENOUS CONTRAST CT DOSE: 3804.89 mGy.cm HISTORY: fall, left chest pain. Left flank pain. TECHNIQUE: Multiaxial CT images of the chest, abdomen, and pelvis were performed following the intravenous administration of contrast. A dose lowering technique was utilized adhering to the principles of ALARA. COMPARISON: Chest CTA and abdomen pelvis CT 01/21/2022. FINDINGS: Chest CT: There is an old moderate superior endplate compression deformity at T3. There is a subacute mild superior endplate compression fracture at T4. No associated retropulsion. Healing right anterior rib fractures are again noted. There are acute left anterior third through fifth rib fractures. There are few additional healing left anterior rib fractures also noted. Mild elevation the right hemidiaphragm. The central airways are patent. No pneumothorax. No pleural effusions. Bibasilar linear densities consistent with subsegmental atelectasis. Otherwise, no new focal lung consolidations to suggest pneumonia. No evidence for pulmonary edema. There is a 1 cm left thyroid nodule. This does not meet CT criteria for follow-up. Mild body wall edema with left breast skin thickening. No change in the anterior diaphragmatic lymphadenopathy. Subcentimeter distal paraesophageal lymph nodes are again noted. There is no hilar lymphadenopathy. Normal esophagus. The heart is normal in size. No evidence for right-sided heart strain. There is extensive bilateral pulmonary emboli with associated subtle embolus at the main pulmonary arteries. Abdomen/pelvis CT: There is a chronic moderate to severe superior endplate compression deformity at L4, unchanged. No pneumoperitoneum. No pneumatosis. Moderate to severe body wall edema is again noted. There is pelvic floor collapse. The bladder is decompressed. The uterus and bilateral adnexa are unremarkable. No bowel wall thickening or obstruction. There is a large amount of ascites which has slightly progressed. Cirrhotic liver and splenomegaly is again noted. The adrenal glands, pancreas, and kidneys unremarkable. No hydronephrosis. The main portal vein is patent. Mild periportal lymphadenopathy remains unchanged. Normal caliber abdominal aorta. Cholecystectomy. Stable partially calcified pelvic/inguinal lymph nodes. IMPRESSION: 1. Extensive bilateral pulmonary emboli including a saddle embolus within the main pulmonary arteries. No evidence for right-sided heart strain at this time. 2. Acute left anterior third through fifth rib fractures. No pneumothorax. 3. Additional subacute to chronic fractures within the chest and abdomen as described above. 4. Cirrhotic liver with splenomegaly and a large amount of ascites. This has slightly progressed. 5. Moderate to severe body wall edema again noted. 6. Mildly enlarged anterior diaphragmatic and periportal lymph nodes remain unchanged. ACT 112: Negative or not required by law. Electronically signed by: Abe Florentino M.D. 03/17/2022 9:[address] 03/17/22 07:05 CT SCAN OF THE CERVICAL SPINE CLINICAL HISTORY: Trauma. Fall. COMPARISON STUDY: No priors. TECHNIQUE: CT scan of the cervical spine is performed from the skull base to the upper thoracic spine. Images are reviewed in the axial, sagittal, and coronal planes. IV contrast was not administered for this examination. A dose lowering technique was utilized adhering to the principles of ALARA. FINDINGS: Skeletal structures: The skeletal structures are osteopenic. There is no evidence of fracture or subluxation involving the cervical spine. Vertebral body height and alignment are maintained. There is straightening of the cervical lordosis. The odontoid process and lateral masses are intact. The atlantoaxial articulation is preserved noting minimal productive degenerative change. The spinous processes appear intact. Intervertebral discs: There is moderate disc space narrowing at C5-C6. Mild narrowing is seen at the remaining cervical levels. Central canal: Posterior disc osteophyte complexes at C4-C5 and C5-C6 may contribute to mild acquired compromise of the central canal. Soft tissues: The prevertebral and paraspinous soft tissues are within normal limits. There is atherosclerotic calcification of the carotid bulbs. Calvarium: The visualized calvarium at the skull base appears intact. Brain parenchyma: Partially visualized brain parenchyma at the skull base is within normal limits. Sinuses and mastoids: Trace fluid is noted in the sphenoid sinuses. The mastoid air cells are well pneumatized. Lung apices: Clear as visualized. IMPRESSION: 1. There is no evidence of fracture or subluxation involving the cervical spine. 2. Osteopenia and mild spondylotic change as above. ACT 112: Negative or not required by law. Electronically signed by: Felipe Aguirre M.D. 03/17/2022 8:[address] 03/17/22 07:[address] WITH CONTRAST, ABDOMEN AND PELVIS CT WITH INTRAVENOUS CONTRAST CT DOSE: 3804.89 mGy.cm HISTORY: fall, left chest pain. Left flank pain. TECHNIQUE: Multiaxial CT images of the chest, abdomen, and pelvis were performed following the intravenous administration of contrast. A dose lowering technique was utilized adhering to the principles of ALARA. COMPARISON: Chest CTA and abdomen pelvis CT 01/21/2022. FINDINGS: Chest CT: There is an old moderate superior endplate compression deformity at T3. There is a subacute mild superior endplate compression fracture at T4. No associated retropulsion. Healing right anterior rib fractures are again noted. There are acute left anterior third through fifth rib fractures. There are few additional healing left anterior rib fractures also noted. Mild elevation the right hemidiaphragm. The central airways are patent. No pneumothorax. No pleural effusions. Bibasilar linear densities consistent with subsegmental atelectasis. Otherwise, no new focal lung consolidations to suggest pneumonia. No evidence for pulmonary edema. There is a 1 cm left thyroid nodule. This does not meet CT criteria for follow-up. Mild body wall edema with left breast skin thickening. No change in the anterior diaphragmatic lymphadenopathy. Subcentimeter distal paraesophageal lymph nodes are again noted. There is no hilar lymphadenopathy. Normal esophagus. The heart is normal in size. No evidence for right-sided heart strain. There is extensive bilateral pulmonary emboli with associated subtle embolus at the main pulmonary arteries. Abdomen/pelvis CT: There is a chronic moderate to severe superior endplate compression deformity at L4, unchanged. No pneumoperitoneum. No pneumatosis. Moderate to severe body wall edema is again noted. There is pelvic floor collapse. The bladder is decompressed. The uterus and bilateral adnexa are unremarkable. No bowel wall thickening or obstruction. There is a large amount of ascites which has slightly progressed. Cirrhotic liver and splenomegaly is again noted. The adrenal glands, pancreas, and kidneys unremarkable. No hydronephrosis. The main portal vein is patent. Mild periportal lymphadenopathy remains unchanged. Normal caliber abdominal aorta. Cholecystectomy. Stable partially calcified pelvic/inguinal lymph nodes. IMPRESSION: 1. Extensive bilateral pulmonary emboli including a saddle embolus within the main pulmonary arteries. No evidence for right-sided heart strain at this time. 2. Acute left anterior third through fifth rib fractures. No pneumothorax. 3. Additional subacute to chronic fractures within the chest and abdomen as described above. 4. Cirrhotic liver with splenomegaly and a large amount of ascites. This has slightly progressed. 5. Moderate to severe body wall edema again noted. 6. Mildly enlarged anterior diaphragmatic and periportal lymph nodes remain unchanged. ACT 112: Negative or not required by law. Electronically signed by: Abe Florentino M.D. 03/17/2022 9:[address] 03/17/22 07:05 CT SCAN OF THE BRAIN WITHOUT IV CONTRAST CLINICAL HISTORY: Fall. COMPARISON STUDY: No priors. TECHNIQUE: Unenhanced axial CT scan of the brain is performed from the vertex to the skull base. A dose lowering technique was utilized adhering to the principles of ALARA. FINDINGS: Brain parenchyma: There is age-related involutional change noting minimal subcortical and periventricular microangiopathic disease. There is no hemorrhage, mass effect, or evidence of acute territorial ischemia by CT criteria. Mccracken-white matter differentiation is preserved. No extra-axial fluid collection is seen. Chronic lacunar infarcts are noted within both basal ganglia as well as the right thalamus. Ventricles, sulci, cisterns: Prominent secondary to involutional change. Intracranial vasculature: There is atherosclerotic calcification of the cavernous carotid and vertebral arteries. Calvarium: The skeletal structures are osteopenic. No depressed calvarial fracture is identified. Sinuses and mastoids: There is trace fluid within the sphenoid sinuses. The remaining visualized paranasal sinuses are clear. The mastoid air cells are well pneumatized. Orbits: The bony orbits are grossly intact. IMPRESSION: There is no hemorrhage, mass effect, or evidence of acute territorial ischemia by CT criteria. ACT 112: Negative or not required by law. Electronically signed by: Felipe Aguirre M.D. 03/17/2022 8:19 AM Knee X-Ray 03/17/22 07:05 LEFT KNEE 3 VIEWS CLINICAL HISTORY: Fall with left knee pain and swelling. FINDINGS: AP, crosstable lateral, and sunrise views of the left knee are obtained. No prior studies are available for comparison at the time of dictation. The skeletal structures are osteopenic. No fracture is seen. The joint spaces of the knee are maintained. A small joint effusion is noted. Soft tissue edema is present throughout the visualized left lower extremity. IMPRESSION: 1. Soft tissue edema with no acute bony abnormality identified. 2. Small joint effusion. Electronically signed by: Felipe Aguirre M.D. 03/17/2022 8:36 AM Venous Doppler Study 03/17/22 10:11 US venous doppler LE BI CLINICAL HISTORY: pe TECHNIQUE: Bilateral lower extremity real-time compression venous ultrasound with Color Doppler imaging. Utilizing real-time ultrasonic imaging multiple real time high-resolution ultrasonic images with compression and noncompression maneuvers of the deep venous system in addition to color doppler imaging were performed from the common femoral vein through the proximal calf veins. COMPARISON: Comparison is made to Doppler ultrasound 01/06/2022 FINDINGS: There is a deep venous thrombus in the left superficial femoral vein in one of the 2 vessels, which also extends into the popliteal vein. Limited evaluation of the calf vessels bilaterally due to overlying edema and tenderness. Impression: 1. Acute appearing occlusive thrombus in the left lower extremity superficial femoral and popliteal veins. 2. Soft tissue edema in the bilateral calf. No definite thrombus of the calf vessels despite limited evaluation. ACT 112: Negative or not required by law. Electronically signed by: Mihai Motley M.D. 03/17/2022 11:46 AM ECG Additional Comments: Vent. Rate : 101 BPM Atrial Rate : 101 BPM P-R Int : 160 ms QRS Dur : 076 ms QT Int : 364 ms P-R-T Axes : 028 073 001 degrees QTc Int : 471 ms Poor data quality, interpretation may be adversely affected Sinus tachycardia Abnormal ECG When compared with ECG of 21-JAN-2022 11:29 Code Status & VTE Plan Code Status FULL - discussed with the patient and her mother Supervising Physician Co-Signing Physician Notes 61-year-old female with PMH of JOYCE with ascites, T2DM, obesity class II, recent COVID [in July 2021] with ongoing subjective shortness of breath being evaluated by pulmonology as outpatient presented to our ED 03/17 for evaluation after she fell out of bed while trying to roll. Patient denies hitting head or loss of consciousness. Patient denies any specific signs and symptoms just prior to fall. Patient reports falling on her left side. Patient reports decreased vision from uncontrolled diabetes and worsening shortness of breath with exertion leading to poor mobility since December this year. Patient does not report any increase/change in swelling of her legs or abdomen. Patient does have chronic swelling in the legs/abdomen from her cirrhosis and ascites. Heart diuretics heart diuretics has been recently adjusted as an outpatient. Patient denies any fever/chills/abdominal pain. In the ED patient was found to have left anterior rib fracture 3rd-5th which is acute and other subacute to chronic fractures. Also she was found to have BLAIRE over CKD. She was also found to have bilateral PE and saddle embolus. US Doppler BLE positive for acute occlusive thrombus in the left lower extremity in superficial femoral and popliteal veins. Other imagings including CT head, CT C-spine, knee x-ray without acute findings. Admitting EKG reviewed, sent troponins. Sent ECHO Vitals was slightly tachycardic, otherwise hemodynamically stable and on room air. Urinalysis suggestive of UTI. Given long COVID associated with worsening DAMICO and new diagnosis of bilateral PE, patient on heparin drip, pulmonology consult, will need transition to oral anticoagulation prior to discharge. Given cirrhosis and BLAIRE with volume overloaded status and recent increase in her outpatient diuretics regimen, will consult nephrology. IV albumin. d/w nephro, will give a dose of iv diuresis, send Urine Na and UA. A1c of 9.1 in December 2021, continue with sliding scale For left rib fracture, pain management. For UTI, Rocephin, follow-up urine culture. Follow-up blood culture. Continue to monitor cirrhotic status. Upon examination: GENERAL: Alert and oriented x3. NAD, on RA. HEENT: No pallor, no icterus. Pupils equal, round and reactive to light. Oral mucosa moist. NECK: No JVD, no neck masses. HEART: S1 and S2 heard. tachycardia. No murmur, no gallop. RESPIRATORY SYSTEM: Normal AP diameter. No accessory muscle use. No wheezing, no crackles. Decreased inspiratory effort. ABDOMEN: Soft, bowel sounds present, nontender, + distention. CENTRAL NERVOUS SYSTEM: No facial droop. Speech is clear. Obeys simple commands. Moves extremities. EXTREMITIES: 2-3+ b/l pedal edema, 2+ leg edema, 1+ thigh edema. No s/s infection noted, slight erythema noted which seems like a bruise. I have seen and examined the patient and have discussed the case with the provider above. I agree with the assessment and plan as stated.
[2022-03-17] MEDS ORDERED: cefTRIAXone SODIUM 1,000 MG in DEXTROSE 5% 50 ML IV SCH (11:15)
--- NOTE | 2022-03-17 11:48 | Ultrasound Report ---
US venous doppler LE BI CLINICAL HISTORY: pe TECHNIQUE: Bilateral lower extremity real-time compression venous ultrasound with Color Doppler imagi ng. Utilizing real-time ultrasonic imaging multiple real time high-resolution ultrasonic images with compression and noncompression maneuvers of the deep venous system in addition to color doppler imagi ng were performed from the common femoral vein through the proximal calf veins. COMPARISON: Comparison is made to Doppler ultrasound 01/06/2022 FINDINGS: There is a deep venous thrombus in the left superficial femoral vein in one of the 2 vessels, which a lso extends into the popliteal vein. Limited evaluation of the calf vessels bilaterally due to overly ing edema and tenderness. Impression: 1. Acute appearing occlusive thrombus in the left lower extremity superficial femoral and popliteal veins. 2. Soft tissue edema in the bilateral calf. No definite thrombus of the calf vessels despite limited evaluation. ACT 112: Negative or not required by law. Electronically signed by: Mihai Motley M.D. 03/17/2022 11:46 AM
[2022-03-17] MEDS: cefTRIAXone SODIUM 2,000 MG in DEXTROSE 5% 50 ML IV SCH (12:05)
[2022-03-17] MEDS ORDERED: FUROSEMIDE INJ 20 MG/2 ML VIAL IV ONE (12:33)
[2022-03-17] MEDS ORDERED: Heparin IV Adult Wt-Based Standard WITH Bolus Protocol IV SCH (12:45)
[2022-03-17] MEDS: ALBUMIN 25% 100 mL 25 GM/100 ML VIAL IV SCH ×2 (13:32→19:43)
[2022-03-17] MEDS: Heparin IV Adult Wt-Based Standard WITH Bolus Protocol IV SCH ×4 (14:36→19:01)
[2022-03-17] MEDS ORDERED: DEXTROSE 50% 50 ML SYRINGE IV PRN (14:36)
[2022-03-17] MEDS ORDERED: GLUCAGON FOR INJ 1 MG VIAL SQ PRN (14:36)
[2022-03-17] MEDS ORDERED: ALBUTEROL HFA 8 GM INHALER INH PRN (14:36)
[2022-03-17] MEDS ORDERED: CARBOHYDRATES FOR HYPOGLYCEMIA PO PRN (14:36)
[2022-03-17] MEDS ORDERED: GLUCOSE 40% GEL 15 GM TUBE PO PRN (14:36)
[2022-03-17] MEDS ORDERED: GLUCOSE 10 TAB/TUBE PO PRN (14:36)
[2022-03-17] MEDS ORDERED: FUROSEMIDE 40 MG/4 ML VIAL IV ONE (16:15)
[2022-03-17] MEDS: INSULIN ASPART PER UNIT SC SCH ×3 (16:23→20:29)
[2022-03-17] MEDS: LIDOCAINE 5% 1 PATCH TD SCH (16:23)
[2022-03-17] MEDS: OCTREOTIDE ACETATE 100 MCG/ML VIAL SQ SCH ×2 (16:24→23:33)
--- NOTE | 2022-03-17 16:46 | Pulmonary Consultation ---
Date of Consultation March 17, 2022 Assessment & Plan (1) Pulmonary emboli: Acute cor pulmonale presence: without acute cor pulmonale Chronicity: acute Pulmonary embolism type: saddle Qualified Code(s): I26.92 - Saddle embolus of pulmonary artery without acute cor pulmonale (2) DVT (deep venous thrombosis): Affected thrombotic vein of extremity: unspecified vein of extremity Chronicity: acute DVT location: lower extremity Laterality: left Qualified Code(s): I82.402 - Acute embolism and thrombosis of unspecified deep veins of left lower extremity (3) Left rib fracture: Encounter type: initial encounter Fracture type: closed Rib fracture type: multiple ribs Qualified Code(s): S22.42XA - Multiple fractures of ribs, left side, initial encounter for closed fracture Plan CT chest 03/17/2022 personally reviewed: Elevated right hemidiaphragm, nondisplaced left-sided rib fractures Saddle pulmonary embolism appreciated with no right heart strain No mediastinal adenopathy Large abdominal ascites appreciated -- Submassive PE with acute DVT sPESI 0, low risk, 1.1% risk of Acute DVT in the left lower extremity Continue with heparin drip for 24-48 hours and if there is no clinical deterioration can transition to p.o. anticoagulation --Left-sided rib fractures Nondisplaced Continue with pain management Incentive spirometry -- Hepatic cirrhosis Patient has significant large abdominal ascites There could be a probability that the abdominal pressure might be causing compression of the IVC which could lead to DVT formation Would recommend consideration of paracentesis -- Morbid obesity Plan: No indication for tPA Continue with heparin for at least 24-48 hours Pulmonary will continue to follow Please note the above document was generated using voice recognition software. It may contain grammatical, syntax or spelling errors.Any formal questions or concerns about the content, text or information contained within the body of this dictation should be directly addressed to the provider for clarification. History of Present Illness Attending Physician: Marti Pike MD History of Present Illness 61-year-old female presents to the ED s/p mechanical fall Past medical history: Liver cirrhosis secondary to [place] with ascites, diabetes type 2, morbid obesity Patient had a CT ordered because of fall to rule out rib fractures and was found the patient had saddle PE At the time of examination patient does state that she has been having issues with breathing on minimal walking which is mostly huffing and puffing. This has been going on for a long time no significant change in her breathing. She says her breathing is at baseline. She has difficulty going around because of knee pain. She had COVID-19 back in July 2020 and she had some issues with her breathing at that time. Patient was saturating 96-97% on room air at the time of examination with systolic blood pressure in the 130s. She did complain of chest pain on the left side where she had the rib fractures. Denies any nausea vomiting Patient is usually walking with the help of her walker. She is not sedentary. There is no family history of blood clots She never had any abdominal paracentesis. Social history: Lifetime non-smoker. Denies any alcohol abuse Allergies Allergy/AdvReac Type Severity Reaction Status Date / Time No Known Allergies Allergy Verified 03/17/22 09:05 Home Medications Medication Instructions Recorded Confirmed Type albuterol sulfate 90 mcg/actuation 2 puff inhalation Q4 PRN Shortness 01/21/22 03/17/22 History aerosol inhaler Of Breath Or Wheezing metformin 500 mg tablet 500 mg PO BIDM 01/21/22 03/17/22 History furosemide 20 mg tablet 20 mg PO QAM 03/17/22 03/17/22 History insulin glargine 100 unit/mL (3 10 unit subcut QAM 03/17/22 03/17/22 History mL) subcutaneous pen (Lantus Solostar U-100 Insulin) spironolactone 50 mg tablet 100 mg PO QAM 03/17/22 03/17/22 History Patient History Medical History Asthma Diabetes Hepatic cirrhosis Surgical History (Updated 03/17/22 @ 11:19 by Corrine Huizar PA-C) Hx of cholecystectomy Family History (Updated 03/17/22 @ 12:10 by Corrine Huizar PA-C) Mother Hypertension Father Hypertension COPD (chronic obstructive pulmonary disease) Social History Smoking Status: Never smoker Second Hand Exposure: No; Do You Dip or Chew Tobacco: No; Tobacco Cessation Education Requested by Patient: No Hx Alcohol Use: No Hx Substance Use: No Preferred Language: Kazakh Communication Ability: Effective Beliefs That Will Affect Care: None Current Living Situation: Parent Other Information That Helps Us Care for You: Yes Feels Safe at Home: Yes Safety Concerns: Feels Safe At This Time Assistive Devices: Walker Review of Systems Review of Systems: All systems reviewed & are unremarkable except as noted in HPI & below Physical Exam Physical Exam: Constitutional: No acute distress HEENT: EOMI, PERRLA Respiratory system: Decreased air entry bilaterally, no wheeze, no rhonchi, mild crackles bilateral lower lobes CVS: S1-S2 positive, no murmurs or gallops Abdomen: Soft, nontender, positive bowel sounds x4, distended, dull to percussion Extremities: +2 pulses bilaterally radialis/ dorsalis pedis, no cyanosis, +3 pitting edema bilateral lower extremity Neuro: Awake alert oriented x3 Psych: Normal mood and affect G/U: No [place] Skin: no rashes, warm and dry Lymphatic: no cervical or axillary lymphadenopathy Results & Data Results & Data ([facility]) Vital Signs (Past 12 Hours) Vital Signs Temp Pulse Pulse Resp BP BP Pulse Ox 03/17/22 16:00 91 H 03/17/22 14:27 03/17/22 14:27 37.7 C H 95 H 26 H 112/66 96 03/17/22 13:35 95 H 24 115/76 96 03/17/22 13:16 95 H 22 110/83 94 03/17/22 12:00 94 H 23 122/81 93 03/17/22 10:00 96 H 22 140/72 94 03/17/22 08:50 100 H 23 149/93 H 92 03/17/22 06:56 36.4 C L 99 H 20 152/112 H 99 O2 Del Method 03/17/22 16:00 03/17/22 14:27 Room Air 03/17/22 14:27 Room Air 03/17/22 13:35 Room Air 03/17/22 13:16 Room Air 03/17/22 12:00 Room Air 03/17/22 10:00 Room Air 03/17/22 08:50 Room Air 03/17/22 06:56 Room Air Laboratory Results 03/17/22 07:20 03/17/22 07:20 PG Care Time/CCT Total # of Minutes Spent Total Time Spent with Patient: Total time spent is greater than 50% in coordination of care (as documented) at patient's floor/unit and/or counseling patient: [place] [address] Initial Inpt Care Lvl 3 Patient Type New Diagnoses Pulmonary emboli I26.92 Acute cor pulmonale presence: without acute cor pulmonale Chronicity: acute Pulmonary embolism type: saddle DVT (deep venous thrombosis) I82.402 Affected thrombotic vein of extremity: unspecified vein of extremity Chronicity: acute DVT location: lower extremity Laterality: left Left rib fracture S22.42XA Encounter type: initial encounter Fracture type: closed Rib fracture type: multiple ribs
[2022-03-17 17:26] LABS: Partial Thromboplastin Ratio > 5.1
[2022-03-17 17:37] LABS: Partial Thromboplastin Time > 139.0 Seconds (21.0-31.0)
--- NOTE | 2022-03-17 18:22 | Consultation Report ---
NEPHROLOGY CONSULTATION NOTE DATE OF SERVICE: 03/17/2022. REASON FOR CONSULTATION: Acute renal failure in a patient admitted with liver cirrhosis, acute bilateral pulmonary embolism. HISTORY OF PRESENT ILLNESS: The patient is a 61-year-old female who has known liver cirrhosis, nonalcoholic type followed with [facility]. She presented to the hospital after she fell out of her bed. She was complaining of left sided chest pain after the fall and was found to have a fracture in that side. She was also found to have bilateral pulmonary embolism including saddle type, as well as DVT in the left lower extremity. She is significantly more edematous than usual and was found to have massive amount of ascites and she does have massive edema bilaterally. Creatinine on baseline is around 1.1 and currently it is 1.6, BUN is 34. Despite significant bilateral pulmonary embolism, she is still 96% oxygen saturation on room air and her vital signs appear to be reasonable. As an outpatient, she was getting Lasix 40 daily and spironolactone under the direction of Hepatology but her edema was getting worse despite escalation of diuretic dose. She has been short of breath for many months, but as per the patient, it was getting progressively worse the last week or so. She is not on any liver transplant list as a MELD score is still fairly low. She is currently on a heparin drip. She also got albumin drip. She is written to have oral Lasix and spironolactone as per her outpatient dose. It is worth noting she did receive IV contrast as part of the CT pulmonary embolism study and received some IV fluid as well as one dose of Lasix. ALLERGIES: None. MEDICATIONS: Home medication list was reviewed in detail. At this time, she was taking Lasix 40 daily and spironolactone 100 daily as well as insulin, metformin and albuterol inhaler. PAST SURGICAL HISTORY: Cholecystectomy. FAMILY HISTORY: Negative for renal disease or dialysis. SOCIAL HISTORY: Never smoked. No alcohol. She is single and lives with her mother. REVIEW OF SYSTEMS: Significant for increasing lower extremity edema, increasing weight despite poor appetite, increasing weakness, shortness of breath, lower extremity edema, and abdominal distention. Denied any nausea, vomiting, diarrhea or constipation, or blood in the stool. No urinary complaint. No focal weakness. Twelve systems reviewed and negative. PHYSICAL EXAMINATION: GENERAL: Middle-aged white female who is obese. She is awake, alert, and oriented and was able to give me a detailed account of her medical history and problem. VITAL SIGNS: Blood pressure is 112/66, pulse rate 95, temperature 37.7, 96% on room air. HEENT: Mucous membrane is moist. NECK: Supple and obese neck. Could not appreciate JVD. CHEST: Bilateral decreased breath sound. Poor inspiratory effort limiting the quality of exam. CARDIOVASCULAR: S1 and S2 regular. ABDOMEN: Soft, distended with significant ascites. EXTREMITIES: Bilaterally 3-4+ edema, pitting type and very densely edematous. NEUROLOGIC: Normal speech. Awake, alert, oriented x3. She does not seem confused at this time and was able to give a detailed account of her medical history. Normal speech. LABORATORY TEST: Most recent blood work, sodium 136, potassium 3.5, BUN 34, creatinine 1.63. At baseline, she has normal kidney function with a creatinine of around 1.1. Albumin is 3.4. Troponin elevated at 27.9, hemoglobin 11.4. WBC count 6.2, platelet count 175. CT chest shows bilateral pulmonary embolism including saddle type and left sided rib fracture. ASSESSMENT AND PLAN: A 61-year-old female admitted to the hospital after she fell from her bed and was found to have left sided rib fracture as well as bilateral significant pulmonary embolism. I have been consulted for acute renal failure in a patient with liver cirrhosis and now diagnosed as having bilateral pulmonary embolism. Acute renal failure: Given that the patient has liver disease with cirrhosis, she is always at high risk for having acute renal failure when the slightest of hemodynamic compromise. Even though she is not hypoxic currently does not mean she could not have been hypoxic in the days before related with bilateral pulmonary embolism. So the current rise in creatinine is to be expected and not at all surprising in the setting of bilateral pulmonary embolism. She does have massive edema, which is hard to interpret given that she has background liver cirrhosis, but now also has bilateral pulmonary embolism with deep venous thrombosis and all of these things can make edema worse. She received IV contrast earlier today, so there is significant high risk of having major worsening in her kidney function in the coming days. Given this, I would like to hold off on the diuretics for today and I do not think we have to give her IV fluid either. Depending on the blood work tomorrow, we can decide on a daily basis about the diuretics. I would give her albumin as is being ordered. I would also give octreotide for presumptive hepatorenal syndrome. However, it is worth noting I cannot really call this as hepatorenal syndrome as of now. We do need a urine sodium to use that as a diagnosis. Thank you very much for the consult. Job ID: [id number] DOUG
[2022-03-17 19:31] LABS: Partial Thromboplastin Ratio 3.4
[2022-03-17 19:34] LABS: Partial Thromboplastin Time 92.5 Seconds (21.0-31.0)
[2022-03-17] MEDS: ONDANSETRON INJ 2 MG/ML 2 ML VIAL IV PRN (21:51)
[2022-03-18 02:54] LABS: Partial Thromboplastin Ratio 2.9
[2022-03-18 02:57] LABS: Partial Thromboplastin Time 78.9 Seconds (21.0-31.0)
[2022-03-18] MEDS: ALBUMIN 25% 100 mL 25 GM/100 ML VIAL IV SCH ×3 (03:30→20:01)
[2022-03-18 06:46] LABS: Hematocrit (blood only) 27.9 % (34.1-44.9); Hemoglobin 9.1 g/dl (12.0-16.0); Mean Platelet Volume 9.7 fL (9.4-12.3); Platelet Count 126 K/uL (130-400); White Blood Count 4.67 K/ul (4.8-10.8)
[2022-03-18 06:50] LABS: INR 1.4 (0.9-1.1); Prothrombin Time 15.1 Seconds (9.0-12.0)
[2022-03-18 07:10] LABS: Albumin Globulin Ratio 1.3 (0.9-2); Albumin Level 3.6 gm/dl (3.4-5.0); BUN Creatinine Ratio 19.1 (10-20); Bilirubin,Total 1.4 mg/dl (0.2-1.0); Calcium 8.7 mg/dl (8.5-10.1); Creatinine Clr Calc Pharmacy 44.7 ml/min; Est GFR (African American) 35.6 ml/min; Est GFR (Non-African American) 30.7 ml/min; Globulin 2.8 gm/dl (2.5-4.0); Potassium 3.2 mmol/L (3.5-5.1); Total Protein 6.4 gm/dl (6.0-8.3)
--- NOTE | 2022-03-18 08:19 | Pulmonology Progress Note ---
Date of Service March 18, 2022 Assessment & Plan (1) Pulmonary emboli: Acute cor pulmonale presence: without acute cor pulmonale Chronicity: acute Pulmonary embolism type: saddle Qualified Code(s): I26.92 - Saddle embolus of pulmonary artery without acute cor pulmonale (2) DVT (deep venous thrombosis): Affected thrombotic vein of extremity: unspecified vein of extremity Chronicity: acute DVT location: lower extremity Laterality: left Qualified Code(s): I82.402 - Acute embolism and thrombosis of unspecified deep veins of left lower extremity (3) Left rib fracture: Encounter type: initial encounter Fracture type: closed Rib fracture type: multiple ribs Qualified Code(s): S22.42XA - Multiple fractures of ribs, left side, initial encounter for closed fracture Plan CT chest 03/17/2022 personally reviewed: Elevated right hemidiaphragm, nondisplaced left-sided rib fractures Saddle pulmonary embolism appreciated with no right heart strain No mediastinal adenopathy Large abdominal ascites appreciated -- Submassive PE with acute DVT sPESI 0, low risk, 1.1% risk of Acute DVT in the left lower extremity Continue with heparin drip for 24-48 hours and if there is no clinical deterioration can transition to p.o. anticoagulation 2D echo 03/17/2022: EF greater than 70%, small left ventricular cavity, moderate concentric LVH, Morgan sign present with hypokinesis of the right ventricular apex. --Left-sided rib fractures Nondisplaced Continue with pain management Incentive spirometry -- Hepatic cirrhosis Patient has significant large abdominal ascites Case discussed with Dr. Mihai Motley, there does not seem to be significant compression of the IVC, renal or the pelvic veins. -- Morbid obesity Plan: There is Morgan signs on the 2D echo but patient is hemodynamically stable, no respiratory distress, heart rate in the high 80s. I would still recommend continuing with heparin drip. If there is any clinical deterioration then tPA will be pursued Please note the above document was generated using voice recognition software. It may contain grammatical, syntax or spelling errors.Any formal questions or concerns about the content, text or information contained within the body of this dictation should be directly addressed to the provider for clarification. Admission and Anticipated Discharge Date Admission Date: March 17, 2022 Subjective Patient seen and examined at bedside. No acute distress, no adverse events overnight. Denies any headache, no nausea, no vomiting. Fair appetite. Says the shortness of breath is improved. The chest pain on the left side is also significantly improved No hematuria, no hematochezia,axis Patient was saturating 97% on 1 L nasal cannula with heart rate 82. Review of Systems Review of Systems: All systems reviewed & are unremarkable except as noted in Subjective Physical Exam Physical Exam: Constitutional: No acute distress HEENT: EOMI, PERRLA Respiratory system: Decreased air entry bilaterally, no wheeze, no rhonchi, mild crackles bilateral lower lobes CVS: S1-S2 positive, no murmurs or gallops Abdomen: Soft, nontender, positive bowel sounds x4, distended, dull to p ercussion Extremities: +2 pulses bilaterally radialis/ dorsalis pedis, no cyanosis, +3 pitting edema bilateral lower extremity Neuro: Awake alert oriented x3 Psych: Normal mood and affect G/U: No [place] Skin: no rashes, warm and dry Lymphatic: no cervical or axillary lymphadenopathy Results & Data Results & Data ([facility]) Vital Signs (Past 12 Hours) Vital Signs Temp Pulse Pulse Resp BP Pulse Ox O2 Del Method 03/18/22 07:57 36.7 C 89 21 126/73 97 Nasal Cannula 03/18/22 02:15 36.6 C 93 H 18 123/76 97 Nasal Cannula 03/17/22 22:13 92 H 03/17/22 22:52 36.8 C 92 H 20 143/88 H 92 Nasal Cannula O2 Flow Rate 03/18/22 07:57 1 03/18/22 02:15 1 03/17/22 22:13 03/17/22 22:52 2 Laboratory Results 03/18/22 05:52 03/18/22 05:52 PG Care Time/CCT Total # of Minutes Spent Total Time Spent with Patient: Total time spent is greater than 50% in coordination of care (as documented) at patient's floor/unit and/or counseling patient: Coding Level of Care Code 54456 Subseq Hosp Care Lvl 2 Diagnoses Pulmonary emboli I26.92 Acute cor pulmonale presence: without acute cor pulmonale Chronicity: acute Pulmonary embolism type: saddle DVT (deep venous thrombosis) I82.402 Affected thrombotic vein of extremity: unspecified vein of extremity Chronicity: acute DVT location: lower extremity Laterality: left Left rib fracture S22.42XA Encounter type: initial encounter Fracture type: closed Rib fracture type: multiple ribs
[2022-03-18] MEDS: INSULIN ASPART PER UNIT SC SCH ×4 (08:26→20:01)
[2022-03-18] MEDS: OCTREOTIDE ACETATE 100 MCG/ML VIAL SQ SCH (08:27)
[2022-03-18 08:28] LABS: Mean Corpuscular Hemoglobin 29.2 pg (25.0-34.0); Mean Corpuscular Hgb Conc 32.6 g/dL (32.0-36.0); Mean Corpuscular Volume 89.4 fL (80.0-100.0); RDW Coefficient of Variation 15.6 % (11.5-14.5); RDW Standard Deviation 50.9 fL (36.4-46.3); Red Blood Count 3.12 M/uL (3.93-5.22)
[2022-03-18] MEDS: LIDOCAINE 5% 1 PATCH TD SCH (08:28)
[2022-03-18] MEDS: cefTRIAXone SODIUM 2,000 MG in DEXTROSE 5% 50 ML IV SCH (08:33)
[2022-03-18] MEDS: LANTUS PER UNIT CHARGE SQ SCH (08:34)
[2022-03-18] MEDS ORDERED: POTASSIUM CHLORIDE CRTAB 20 MEQ TABCR PO ONE (08:44)
[2022-03-18] MEDS ORDERED: SPIRONOLACTONE 100 MG TAB PO SCH (09:00)
[2022-03-18] MEDS ORDERED: FUROSEMIDE 20 MG TAB PO SCH (09:00)
[2022-03-18] MEDS: HEPARIN SODIUM/DEXTROSE 25,000 UNITS/500 ML BAG IV SCH (09:25)
[2022-03-18 09:30] LABS: Partial Thromboplastin Ratio 4.2
--- NOTE | 2022-03-18 09:32 | Nephrology Progress Note ---
Date of Service March 18, 2022 Assessment & Plan Admission and Anticipated Discharge Date Admission Date: March 17, 2022 Subjective S--no new issues. Now on low o2 PHYSICAL EXAMINATION: GENERAL: Middle-aged white female who is obese. She is awake, alert, and oriented and was able to give me a detailed account of her medical history and problem. HEENT: Mucous membrane is moist. NECK: Supple and obese neck. Could not appreciate JVD. CHEST: Bilateral decreased breath sound. Poor inspiratory effort limiting the quality of exam. CARDIOVASCULAR: S1 and S2 regular. ABDOMEN: Soft, distended with significant ascites. EXTREMITIES: Bilaterally 3-4+ edema, pitting type and very densely edematous. NEUROLOGIC: Normal speech. Awake, alert, oriented x3. She does not seem confused at this time and was able to give a detailed account of her medical history. Normal speech. LABORATORY TEST: Most recent blood work, sodium 136, potassium 3.5, BUN 34, creatinine 1.63. At baseline, she has normal kidney function with a creatinine of around 1.1. Albumin is 3.4. Troponin elevated at 27.9, hemoglobin 11.4. WBC count 6.2, platelet count 175. CT chest shows bilateral pulmonary embolism including saddle type and left sided rib fracture. ASSESSMENT AND PLAN: A 61-year-old female admitted to the hospital after she fell from her bed and was found to have left sided rib fracture as well as bilateral significant pulmonary embolism. I have been consulted for acute renal failure in a patient with liver cirrhosis and now diagnosed as having bilateral pulmonary embolism. Acute renal failure: Given that the patient has liver disease with cirrhosis, she is always at high risk for having acute renal failure when the slightest of hemodynamic compromise. Even though she is not hypoxic currently does not mean she could not have been hypoxic in the days before related with bilateral pulmonary embolism. So the current rise in creatinine is to be expected and not at all surprising in the setting of bilateral pulmonary embolism. She does have massive edema, which is hard to interpret given that she has background liver cirrhosis, but now also has bilateral pulmonary embolism with deep venous thrombosis and all of these things can make edema worse. She received IV contrast earlier today, so there is significant high risk of having major worsening in her kidney function in the coming days. Rec: 1 Stop Octreotide drip. This is not HRS 2 Creat rising but fairly low level rise. has massive edema so will need aggressive diuresis--use 40 iv tid. Already received Aldactone earlier today. . will prefer to hold off on Aldactone while creat rising. 3 k.cl 20 tid. may need more. 4 expect creat to rise further given contrast, b/l PE and Cirrhosis and now d iuretics. 5 Will continue to follow. 6 Ascites tap as per primary team and GI given heparin with now PE. . Results & Data ([facility]) Vital Signs (Past 12 Hours) Vital Signs Temp Pulse Pulse Resp BP Pulse Ox O2 Del Method 03/18/22 07:57 36.7 C 89 21 126/73 97 Nasal Cannula 03/18/22 02:15 36.6 C 93 H 18 123/76 97 Nasal Cannula 03/17/22 22:13 92 H 03/17/22 22:52 36.8 C 92 H 20 143/88 H 92 Nasal Cannula O2 Flow Rate 03/18/22 07:57 1 03/18/22 02:15 1 03/17/22 22:13 03/17/22 22:52 2
[2022-03-18 09:36] LABS: Partial Thromboplastin Time 114.2 Seconds (21.0-31.0)
[2022-03-18] MEDS: CHOLECALCIFEROL 1,000 UNITS 25 MCG TAB PO SCH (09:36)
[2022-03-18] MEDS: POTASSIUM CHLORIDE CRTAB 20 MEQ TABCR PO SCH ×3 (09:46→20:02)
[2022-03-18] MEDS: FUROSEMIDE 40 MG/4 ML VIAL IV SCH ×3 (09:46→16:42)
--- NOTE | 2022-03-18 16:51 | Hospitalist Progress Note ---
Date of Service March 18, 2022 Assessment & Plan (1) Saddle pulmonary embolus: Plan: Acute Saddle pulmonary embolism Acute DVT of Left LE Hx of COVID infection in Jul was vaccinated in 2020 x 2 doses --CT Chest:Extensive bilateral pulmonary emboli including a saddle embolus within the main pulmonary arteries. No evidence for right-sided heart strain at this time. Acute left anterior third through fifth rib fractures. No pneumothorax. Additional subacute to chronic fractures within the chest and abdomen as described above. Cirrhotic liver with splenomegaly and a large amount of ascites. This has slightly progressed. Moderate to severe body wall edema again noted. Mildly enlarged anterior diaphragmatic and periportal lymph nodes remain unchanged. --ECHO: Aortic valve sclerosis mild, without significant aortic valvular sten osis. Left ventricle cavity is small. Moderate concentric LVH. Left ventricle wall motion is normal. Left ventricle is hyperdynamic. EF greater than 70%. Neck: Sign present with hypokinesis of the right ventricular apex with sparing of the basilar structures and mild apical dilatation consistent with acute pulmonary embolus. Trace tricuspid insufficiency is present --Venous Doppler:Acute appearing occlusive thrombus in the left lower extremity superficial femoral and popliteal veins. Soft tissue edema in the bilateral calf. No definite thrombus of the calf vessels despite limited evaluation. -- Continue IV heparin for now If any clinical deterioration, then tPA will be pursued Appreciate pulmonology input Saturating low 90s on room air (2) Hepatic cirrhosis: Plan: - Nonalcoholic, hepatitis panel was conducted 01/27/2022 as reviewed in outpatient epic and is negative for hep A, B, C - MELD score 15 today, previously 13 - Scheduled with Dr. Mace as outpatient with hepatology on 05/05/22: In end of December pt was placed on lasix 20 mg daily and spironolactone 50 mg daily, lasix was increased to 40 mg daily on 02/11, now she is up to lasix 40 mg daily and spironolactone 100 mg daily. -Volume overload status --Obtain ABD USD for ascites Continue diuretics as per Nephrology --Consider GI eval based on ABD usd -Monitor volume status (3) Diabetes: Plan: -Last A1c was 9.1 on 01/13/2022 -Holding metformin Continue Insulin (4) Asthma: Plan: -Continue albuterol sulfate (5) Rib fractures: Plan: Left-sided rib fractures Nondisplaced Secondary to fall Continue incentive spirometer Pain control (6) BLAIRE (acute kidney injury): Plan: Cr:1.78 Received Contrast In setting of volume overload Continue IV diuresis as recommended by nephrology Appreciate nephrology input Replace potassium for hypokalemia as needed Monitor renal function (7) Fall: Plan: Mechanical fall Fall precautions PT/OT Abnormal UA Rule out UTI Urine Cx pending Empirically on Rocephin DVT Px: on IV Heparin CODE STATUS: Full code Disposition PT/OT prior to discharge (8) UTI (urinary tract infection): Admission and Anticipated Discharge Date Admission Date: March 17, 2022 Subjective Patient is seen and examined at bedside States having chest pain with deep breathing Also reports dyspnea on exertion Reports nausea overnight which resolved Also states having bilateral leg pain and swelling Offers no other complaints Review of Systems Review of Systems: All systems reviewed & are unremarkable except as noted in Subjective Physical Exam Physical Exam: Physical Exam: Vitals signs as noted above General Appearance:Obese, No apparent distress Head: normocephalic, Atraumatic Eyes: normal inspection, EOMI Neck: supple, Trachea midline Respiratory/Chest: Decreased breath sounds, CTA, No accessory muscle use Cardiovascular: S1, S2, No murmur Abdomen/GI:Soft, abd distended, Non tender, Bowel sounds present Extremities/Musculoskeletal:normal inspection, +3 B/L LE edema Neurologic/Psych:AAOX3, grossly no focal neurological deficits Skin: normal color, warm Results & Data Results & Data ([facility]) Vital Signs (Past 12 Hours) Vital Signs Temp Pulse Resp BP Pulse Ox O2 Del Method O2 Flow Rate 03/18/22 16:01 36.7 C 94 H 24 141/80 H 91 Room Air 03/18/22 11:47 36.7 C 91 H 17 135/96 99 Nasal Cannula 1 03/18/22 07:57 36.7 C 89 21 126/73 97 Nasal Cannula 1 Laboratory Results Short CBC 03/18/22 Range/Units 05:52 WBC 4.67 L (4.8-10.8) K/ul Hgb 9.1 L (12.0-16.0) g/dl Hct 27.9 L (34.1-44.9) % Plt Count 126 L (130-400) K/uL BMP 03/18/22 05:52 Sodium 136 Potassium 3.2 L Chloride 97 L Carbon Dioxide 30 BUN 34 H Creatinine 1.78 H Glucose 142 H Calcium 8.7 Liver Function 03/18/22 Range/Units 05:52 Total Bilirubin 1.4 H (0.2-1.0) mg/dl AST 16 (13-39) U/L ALT 8 (7-52) U/L Alkaline Phosphatase 47 (34-104) U/L Albumin 3.6 (3.4-5.0) gm/dl
[2022-03-18 17:15] LABS: Partial Thromboplastin Ratio 1.5; Partial Thromboplastin Time 41.7 Seconds (21.0-31.0)
[2022-03-18] MEDS: Heparin IV Adult Wt-Based Standard WITH Bolus Protocol IV SCH ×9 (19:28→23:24)
[2022-03-18] MEDS ORDERED: MAGNESIUM SULFATE / D5W 1 GM/100 ML BAG IV ONE (23:11)
[2022-03-18 23:34] LABS: Allen Test Pos (Pos); Base Excess ABG 5.6 mEq/L (-9-1.8); HCO3 ABG 31 mmol/L (19-24); PCO2 ABG 45 mmHg (35-46); PO2 ABG 102 mmHg (80-95); pH ABG 7.44 (7.35-7.45)
[2022-03-18 23:50] LABS: BUN Creatinine Ratio 19.8 (10-20); Calcium 9.1 mg/dl (8.5-10.1); Creatinine Clr Calc Pharmacy 47.6 ml/min; Est GFR (African American) 38.4 ml/min; Est GFR (Non-African American) 33.1 ml/min; Magnesium 1.5 mg/dl (1.7-2.4); Potassium 3.8 mmol/L (3.5-5.1)
[2022-03-19 00:07] LABS: Partial Thromboplastin Ratio 1.7
[2022-03-19 00:15] LABS: Partial Thromboplastin Time 48.1 Seconds (21.0-31.0)
[2022-03-19] MEDS: Heparin IV Adult Wt-Based Standard WITH Bolus Protocol IV SCH (05:06)
[2022-03-19] MEDS: ALBUMIN 25% 100 mL 25 GM/100 ML VIAL IV SCH (05:24)
[2022-03-19 06:20] LABS: Basophils # (auto) 0.07 K/uL (0-0.2); Basophils % (auto) 1.5 %; Eosinophils # (auto) 0.09 K/uL (0-0.50); Eosinophils % (auto) 1.9 %; Hematocrit (blood only) 28.5 % (34.1-44.9); Hemoglobin 9.3 g/dl (12.0-16.0); Immature Granulocytes # (auto) 0.02 K/uL (0.00-0.02); Immature Granulocytes % (auto) 0.4 %; Lymphocytes # (auto) 0.75 K/uL (1.2-3.4); Lymphocytes % (auto) 16.2 %; Mean Platelet Volume 9.8 fL (9.4-12.3); Monocytes # (auto) 0.41 K/uL (0.24-0.82); Monocytes % (auto) 8.9 %; Neutrophils # (auto) 3.29 K/uL (1.4-6.5); Neutrophils % (auto) 71.1 %; Platelet Count 127 K/uL (130-400); White Blood Count 4.63 K/ul (4.8-10.8)
--- NOTE | 2022-03-19 06:47 | XRay Report ---
XR chest 1V portable CLINICAL HISTORY: low o2 COMPARISON STUDY: Chest CT March 17, 2022. FINDINGS: Lung volumes are diminished. This is unchanged. Elevation of the right hemidiaphragm is aga in noted. Cardiomediastinal silhouette is stable. No pneumothorax or pleural effusion is noted. There is no lobar consolidation. There is no evidence for pulmonary edema. IMPRESSION: No change in appearance of the chest. Low lung volumes with elevation of the right hemid iaphragm. ACT 112: Negative or not required by law. Electronically signed by: Dave Triana M.D. 03/19/2022 6:46 AM
[2022-03-19 06:48] LABS: BUN Creatinine Ratio 20.6 (10-20); Calcium 8.9 mg/dl (8.5-10.1); Creatinine Clr Calc Pharmacy 51.3 ml/min; Est GFR (Non-African American) 36.3 ml/min; Potassium 3.7 mmol/L (3.5-5.1)
[2022-03-19 07:02] LABS: INR 1.4 (0.9-1.1); Partial Thromboplastin Ratio 1.7; Prothrombin Time 14.2 Seconds (9.0-12.0)
[2022-03-19 07:03] LABS: Partial Thromboplastin Time 47.6 Seconds (21.0-31.0)
[2022-03-19 07:21] LABS: Mean Corpuscular Hemoglobin 28.9 pg (25.0-34.0); Mean Corpuscular Hgb Conc 32.6 g/dL (32.0-36.0); Mean Corpuscular Volume 88.5 fL (80.0-100.0); RDW Coefficient of Variation 15.2 % (11.5-14.5); Red Blood Count 3.22 M/uL (3.93-5.22)
[2022-03-19] MEDS: INSULIN ASPART PER UNIT SC SCH ×4 (08:11→21:04)
--- NOTE | 2022-03-19 08:13 | Pulmonology Progress Note ---
Date of Service March 19, 2022 Assessment & Plan (1) Pulmonary emboli: Acute cor pulmonale presence: without acute cor pulmonale Chronicity: acute Pulmonary embolism type: saddle Qualified Code(s): I26.92 - Saddle embolus of pulmonary artery without acute cor pulmonale (2) DVT (deep venous thrombosis): Affected thrombotic vein of extremity: unspecified vein of extremity Chronicity: acute DVT location: lower extremity Laterality: left Qualified Code(s): I82.402 - Acute embolism and thrombosis of unspecified deep veins of left lower extremity (3) Left rib fracture: Encounter type: initial encounter Fracture type: closed Rib fracture type: multiple ribs Qualified Code(s): S22.42XA - Multiple fractures of ribs, left side, initial encounter for closed fracture Plan CT chest 03/17/2022 personally reviewed: Elevated right hemidiaphragm, nondisplaced left-sided rib fractures Saddle pulmonary embolism appreciated with no right heart strain No mediastinal adenopathy Large abdominal ascites appreciated -- Submassive PE with acute DVT sPESI 0, low risk, 1.1% risk of Acute DVT in the left lower extremity Continue with heparin drip for 24-48 hours and if there is no clinical deterioration can transition to p.o. anticoagulation 2D echo 03/17/2022: EF greater than 70%, small left ventricular cavity, moderate concentric LVH, Morgan sign present with hypokinesis of the right ventricular apex. --Left-sided rib fractures Nondisplaced Continue with pain management Incentive spirometry -- Hepatic cirrhosis Patient has significant large abdominal ascites Case discussed with Dr. Mihai Motley, there does not seem to be significant compression of the IVC, renal or the pelvic veins. -- Morbid obesity --Probable ANEL Recommend outpatient polysomnography Plan: In/out: -80, urine output 1075, +850 since coming to the hospital Chest x-ray from 03/18/2022 shows elevation of the right hemidiaphragm, atelectasis/infarction on the right lower lobe cannot be ruled out although p atient is not complaining of any pain Incentive spirometry will be beneficial Patient will likely desaturate when she is sleeping because I think she has a component of ANEL/OHS. I was able to go down on oxygen to 1 L and she was still saturating 97% with heart rate in the mid 80s. Recommend continue with heparin drip till decision is made regarding the large abdominal ascites and then she can be transition to p.o. anticoagulants Please note the above document was generated using voice recognition software. It may contain grammatical, syntax or spelling errors.Any formal questions or concerns about the content, text or information contained within the body of this dictation should be directly addressed to the provider for clarification. Admission and Anticipated Discharge Date Admission Date: March 17, 2022 Subjective Patient seen and examined at bedside. No acute distress Overnight patient had an episode of desaturation in the mid to high 70s. At the time of examination today she was on 3 L and she was saturating 99%. No chest pain, no shortness of breath Fair appetite No nausea or vomiting No hematuria, no hemoptysis, no hematochezia. On asking whether she was asleep and there was desaturation she stated that she was asleep prior to the desaturation but she was awake when she desaturated. Review of Systems Review of Systems: All systems reviewed & are unremarkable except as noted in Subjective Physical Exam Physical Exam: Constitutional: No acute distress HEENT: EOMI, PERRLA Respiratory system: Decreased air entry bilaterally, no wheeze, no rhonchi, mild crackles bilateral lower lobes CVS: S1-S2 positive, no murmurs or gallops Abdomen: Soft, nontender, positive bowel sounds x4, distended, dull to percussion Extremities: +2 pulses bilaterally radialis/ dorsalis pedis, no cyanosis, +3 pitting edema bilateral lower extremity Neuro: Awake alert oriented x3 Psych: Normal mood and affect G/U: No [place] Skin: no rashes, warm and dry Lymphatic: no cervical or axillary lymphadenopathy Results & Data Results & Data ([facility]) Vital Signs (Past 12 Hours) Vital Signs Temp Pulse Pulse Resp BP Pulse Ox O2 Del Method 03/19/22 03:41 36.5 C 83 16 143/93 H 99 Nasal Cannula 03/19/22 00:00 92 H 03/18/22 22:46 37.2 C 92 H 22 143/92 H 95 Nasal Cannula O2 Flow Rate 03/19/22 03:41 2 03/19/22 00:00 03/18/22 22:46 2 Laboratory Results 03/19/22 05:35 03/19/22 05:35 PG Care Time/CCT Total # of Minutes Spent Total Time Spent with Patient: Total time spent is greater than 50% in coordination of care (as documented) at patient's floor/unit and/or counseling patient: Coding Level of Care Code 01747 Subseq Hosp Care Lvl 2 Diagnoses Pulmonary emboli I26.92 Acute cor pulmonale presence: without acute cor pulmonale Chronicity: acute Pulmonary embolism type: saddle DVT (deep venous thrombosis) I82.402 Affected thrombotic vein of extremity: unspecified vein of extremity Chronicity: acute DVT location: lower extremity Laterality: left Left rib fracture S22.42XA Encounter type: initial encounter Fracture type: closed Rib fracture type: multiple ribs
[2022-03-19] MEDS: FUROSEMIDE 40 MG/4 ML VIAL IV SCH ×4 (08:15→17:11)
[2022-03-19] MEDS: POTASSIUM CHLORIDE CRTAB 20 MEQ TABCR PO SCH ×3 (08:16→21:04)
[2022-03-19] MEDS: LIDOCAINE 5% 1 PATCH TD SCH (08:16)
[2022-03-19] MEDS: CHOLECALCIFEROL 1,000 UNITS 25 MCG TAB PO SCH (08:16)
[2022-03-19] MEDS: LANTUS PER UNIT CHARGE SQ SCH (08:20)
[2022-03-19] MEDS: cefTRIAXone SODIUM 2,000 MG in DEXTROSE 5% 50 ML IV SCH (08:20)
[2022-03-19] MEDS ORDERED: ALBUMIN HUMAN 25% 12.5 GM/50 ML VIAL IV ONE (09:33)
--- NOTE | 2022-03-19 09:41 | Gastrointestinal Consultation ---
Date of Consultation March 19, 2022 Assessment & Plan (1) Hepatic cirrhosis: (2) Fall: (3) Pulmonary emboli: (4) DVT (deep venous thrombosis): Pt is a 61 yo female w suspected JOYCE cirrhosis (current MELD 19), admitted following a fall out of bed, found to have PE, DVT, BLAIRE on admission with symptoms of SOB, abd distension full ascites & leg edema - Low Na (2g) diet - US paracentesis w cell ct and fluid analysis, Albumin IV repletion - Continue current diuretics for now (Lasix 40mg IV TID), monitor electrolytes and renal function closely. Appreciate Nephrology's recs - PE and DVT management per primary team; on Heparin gtt currently - OP follow with Dr. Mace for continued cirrhosis management, upcoming appt in May in clinic and for colonoscopy. Should have EGD for variceal screening. Up to date U/S for HCC screening done in January. - Avoid ETOH, no APAP >2g day recommended Supervising Physician Co-Signing Physician Notes I saw and evaluated the patient. We were consulted due to her history of cirrhosis and progressive unfortunately appears that the patient did suffer an OR at bedside pulmonary embolism. Given ascites we would suggest further evaluation to evaluate for evidence of portal vein thrombosis with right upper quadrant ultrasound of the. 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 Recent pulmonary embolus I would suggest for additional clot burden with a right upper quadrant ultrasound. History of Present Illness Reason for Consultation: Cirrhosis, ascites Requesting Physician: Dr. Sj Mcgill Attending Physician: Dr. Jesús Guidry History of Present Illness Pt is a 61 yo female w PMHx of DM II, HLD, COVID 19 earlier this year, suspected JOYCE cirrhosis who was admitted after falling off bed and with symptoms of SOB. Found to have PE and LLE DVT, currently on Heparin gtt. GI is consulted to help manage her cirrhosis and ascites. [facility] and had followed by Dr. Deidra Mace. Due to previously low MELD (13) and poor functional status, was considered poor transplant candidate. At home she's been on Lasix 40mg and Spironolactone 100mg and had been monitoring Na intake, knows not to go over 2g a day. She noticed however that her abdomen is getting distended, and legs are getting swollen. She denies ever having a paracentesis. Noted to when she was admitted that she has BLAIRE, being followed by Nephrology. Suspected HRS though urine Na was 76. She had been given Albumin IV and currently back on Lasix at dose of 40mg IV TID. Aside from above, she denies any symptoms of headaches, dizziness, chest pain, increased short of breath. However does feel that abdomen is getting full but not painful. Last bowel movement was prior to her admission, she denies any signs of rectal bleeding or dark tarry stools. Allergies Allergy/AdvReac Type Severity Reaction Status Date / Time No Known Allergies Allergy Verified 03/17/22 09:05 Home Medications Medication Instructions Recorded Confirmed Type albuterol sulfate 90 mcg/actuation 2 puff inhalation Q4 PRN Shortness 01/21/22 03/17/22 History aerosol inhaler Of Breath Or Wheezing metformin 500 mg tablet 500 mg PO BIDM 01/21/22 03/17/22 History furosemide 20 mg tablet 20 mg PO QAM 03/17/22 03/17/22 History insulin glargine 100 unit/mL (3 10 unit subcut QAM 03/17/22 03/17/22 History mL) subcutaneous pen (Lantus Solostar U-100 Insulin) spironolactone 50 mg tablet 100 mg PO QAM 03/17/22 03/17/22 History Patient History Medical History Asthma Diabetes Hepatic cirrhosis Surgical History (Updated 03/17/22 @ 11:19 by Corrine Huizar PA-C) Hx of cholecystectomy Family History (Updated 03/17/22 @ 12:10 by Corrine Huizar PA-C) Mother Hypertension Father Hypertension COPD (chronic obstructive pulmonary disease) Social History Smoking Status: Never smoker Second Hand Exposure: No; Do You Dip or Chew Tobacco: No; Tobacco Cessation Education Requested by Patient: No Hx Alcohol Use: No Hx Substance Use: No Preferred Language: Mohawk Communication Ability: Effective Beliefs That Will Affect Care: None marital status: Single Current Living Situation: Parent Other Information That Helps Us Care for You: Yes Feels Safe at Home: Yes Safety Concerns: Feels Safe At This Time Assistive Devices: Cane and Walker Review of Systems Review of Systems: All systems reviewed & are unremarkable except as noted in HPI & below Physical Exam Constitutional: WD/WN, vitals as above well groomed, cooperative and comfortable Eyes: PERRL, conjunctivae normal, anicteric sclerae ENMT: external ear and nose normal, oropharynx normal Respiratory: On O2 1L per NC, clear to auscultation bilateral upper lobes, diminished at bases. Cardiovascular: RRR, no murmur, no edema Gastrointestinal (Abdomen): Distended, + anasarca, BS hypoactive, non tender Skin: no rashes, warm and dry no jaundice Neurologic: Motor/Sensory: no asterixis Psychiatric: A+Ox3, euthymic affect Lymphatic: Bilateral LE edema noted Results & Data ([facility]) Vital Signs (Past 12 Hours) Vital Signs Temp Pulse Pulse Resp BP Pulse Ox O2 Del Method 03/19/22 08:00 Nasal Cannula 03/19/22 08:32 36.5 C 86 18 131/79 97 Room Air 03/19/22 03:41 36.5 C 83 16 143/93 H 99 Nasal Cannula 03/19/22 00:00 92 H 03/18/22 22:46 37.2 C 92 H 22 143/92 H 95 Nasal Cannula O2 Flow Rate 03/19/22 08:00 1 03/19/22 08:32 03/19/22 03:41 2 03/19/22 00:00 03/18/22 22:46 2 (1) DVT (deep venous thrombosis) Affected thrombotic vein of extremity: unspecified vein of extremity Chronicity: acute DVT location: lower extremity Laterality: left Qualified Code(s): I82.402 - Acute embolism and thrombosis of unspecified deep veins of left lower extremity (2) Pulmonary emboli Acute cor pulmonale presence: without acute cor pulmonale Chronicity: acute Pulmonary embolism type: saddle Qualified Code(s): I26.92 - Saddle embolus of pulmonary artery without acute cor pulmonale (3) Fall Encounter type: initial encounter Qualified Code(s): W19.XXXA - Unspecified fall, initial encounter
[2022-03-19] MEDS: ALBUMIN 25% 12.5 GM/50 ML VIAL IV SCH ×4 (11:51→12:36)
[2022-03-19] MEDS: HEPARIN SODIUM/DEXTROSE 25,000 UNITS/500 ML BAG IV SCH (11:53)
--- NOTE | 2022-03-19 14:07 | Nephrology Progress Note ---
Date of Service March 19, 2022 Assessment & Plan Admission and Anticipated Discharge Date Admission Date: March 17, 2022 Subjective Subjective S--no new issues. Now on low o2. only 1075 ml urine PHYSICAL EXAMINATION: GENERAL: Middle-aged white female who is obese. She is awake, alert, and oriented and was able to give me a detailed account of her medical history and problem. HEENT: Mucous membrane is moist. NECK: Supple and obese neck. Could not appreciate JVD. CHEST: Bilateral decreased breath sound. Poor inspiratory effort limiting the quality of exam. CARDIOVASCULAR: S1 and S2 regular. ABDOMEN: Soft, distended with significant ascites. EXTREMITIES: Bilaterally 3-4+ edema, pitting type and very densely edematous. NEUROLOGIC: Normal speech. Awake, alert, oriented x3. She does not seem confused at this time and was able to give a detailed account of her medical history. Normal speech. LABORATORY TEST: labs reviewed. creat down a bit ASSESSMENT AND PLAN: A 61-year-old female admitted to the hospital after she fell from her bed and was found to have left sided rib fracture as well as bilateral significant pulmonary embolism. I have been consulted for acute renal failure in a patient with liver cirrhosis and now diagnosed as having bilateral pulmonary embolism. Acute renal failure: Given that the patient has liver disease with cirrhosis, she is always at high risk for having acute renal failure when the slightest of hemodynamic compromise. Even though she is not hypoxic currently does not mean she could not have been hypoxic in the days before related with bilateral pulmonary embolism. So the current rise in creatinine is to be expected and not at all surprising in the setting of bilateral pulmonary embolism. She does have massive edema, which is hard to interpret given that she has background liver cirrhosis, but now also has bilateral pulmonary embolism with deep venous thrombosis and all of these things can make edema worse. She received IV contrast earlier today, so there is significant high risk of having major worsening in her kidney function in the coming days. Rec: 1 Creat down a bit --great news. 3 Not enough diuresis--only 1075 ml. raise lasix to 80iv q8hr. if not enough then will use lasix drip. 3 na slightly low but this is still hypervolemic given we have hardly made any difference in edema or diuresis. Results & Data ([facility]) Vital Signs (Past 12 Hours) Vital Signs Temp Pulse Resp BP Pulse Ox O2 Del Method O2 Flow Rate 03/19/22 11:30 36.9 C 98 H 17 143/94 H 91 Room Air 03/19/22 08:00 Nasal Cannula 1 03/19/22 08:32 36.5 C 86 18 131/79 97 Room Air 03/19/22 03:41 36.5 C 83 16 143/93 H 99 Nasal Cannula 2
--- NOTE | 2022-03-19 16:10 | Hospitalist Progress Note ---
Date of Service March 19, 2022 Assessment & Plan (1) Saddle pulmonary embolus: Plan: Acute Saddle pulmonary embolism Acute DVT of Left LE Hx of COVID infection in Jul was vaccinated in 2020 x 2 doses --CT Chest:Extensive bilateral pulmonary emboli including a saddle embolus within the main pulmonary arteries. No evidence for right-sided heart strain at this time. Acute left anterior third through fifth rib fractures. No pneumothorax. Additional subacute to chronic fractures within the chest and abdomen as described above. Cirrhotic liver with splenomegaly and a large amount of ascites. This has slightly progressed. Moderate to severe body wall edema again noted. Mildly enlarged anterior diaphragmatic and periportal lymph nodes remain unchanged. --ECHO: Aortic valve sclerosis mild, without significant aortic valvular sten osis. Left ventricle cavity is small. Moderate concentric LVH. Left ventricle wall motion is normal. Left ventricle is hyperdynamic. EF greater than 70%. Neck: Sign present with hypokinesis of the right ventricular apex with sparing of the basilar structures and mild apical dilatation consistent with acute pulmonary embolus. Trace tricuspid insufficiency is present --Venous Doppler:Acute appearing occlusive thrombus in the left lower extremity superficial femoral and popliteal veins. Soft tissue edema in the bilateral calf. No definite thrombus of the calf vessels despite limited evaluation. -- Continue IV heparin for now If any clinical deterioration, then tPA will be pursued Appreciate pulmonology input Supplemental oxygen as needed Likely transition to Eliquis tomorrow Nocturnal Hypoxia Likely ANEL/OHS Will request Nocturnal Oximetry study May also need 2 step prior to discharge (2) Hepatic cirrhosis: Plan: - Nonalcoholic, hepatitis panel was conducted 01/27/2022 as reviewed in outpatient epic and is negative for hep A, B, C - MELD score 15 today, previously 13 - Scheduled with Dr. Mace as outpatient with hepatology on 05/05/22: In end of December pt was placed on lasix 20 mg daily and spironolactone 50 mg daily, lasix was increased to 40 mg daily on 02/11, now she is up to lasix 40 mg daily and spironolactone 100 mg daily. -Volume overload status --Continue diuretics as per Nephrology --Monitor volume status --Appreciate GI input --Fluid restriction, Low Na diet --Planned for paracentesis --Needs follow up with GI upon discharge (3) Diabetes: Plan: -Last A1c was 9.1 on 01/13/2022 -Holding metformin Continue Insulin (4) Asthma: Plan: -Continue albuterol sulfate (5) Rib fractures: Plan: Left-sided rib fractures Nondisplaced Secondary to fall Continue incentive spirometer Pain control (6) BLAIRE (acute kidney injury): Plan: Cr:1.78>1.5 Received Contrast In setting of volume overload Continue IV diuresis as recommended by nephrology Appreciate nephrology input Replace potassium for hypokalemia as needed Monitor renal function (7) Fall: Plan: Mechanical fall Fall precautions PT/OT Abnormal UA Ruled out UTI Urine Cx Mixed ashley Empirically received Rocephin for 3 days DVT Px: on IV Heparin CODE STATUS: Full code Disposition PT/OT prior to discharge (8) UTI (urinary tract infection): Admission and Anticipated Discharge Date Admission Date: March 17, 2022 Subjective Patient is seen and examined at bedside Feels better subjectively today Abdomen is still very distended Still has significant leg swelling Denies chest pain, dyspnea, dizziness Offers no other complaints Review of Systems Review of Systems: All systems reviewed & are unremarkable except as noted in Subjective Physical Exam Physical Exam: Physical Exam: Vitals signs as noted above General Appearance:Obese, No apparent distress Head: normocephalic, Atraumatic Eyes: normal inspection, EOMI Neck: supple, Trachea midline Respiratory/Chest: Decreased breath sounds, CTA, No accessory muscle use Cardiovascular: S1, S2, No murmur Abdomen/GI:Soft, abd distended, Non tender, Bowel sounds present Extremities/Musculoskeletal:normal inspection, +3 B/L LE edema Neurologic/Psych:AAOX3, grossly no focal neurological deficits Skin: normal color, warm Results & Data Results & Data ([facility]) Vital Signs (Past 12 Hours) Vital Signs Temp Pulse Resp BP Pulse Ox O2 Del Method O2 Flow Rate 03/19/22 15:22 36.9 C 103 H 17 130/93 91 Room Air 03/19/22 11:30 36.9 C 98 H 17 143/94 H 91 Room Air 03/19/22 08:00 Nasal Cannula 1 03/19/22 08:32 36.5 C 86 18 131/79 97 Room Air Laboratory Results Short CBC 03/19/22 Range/Units 05:35 WBC 4.63 L (4.8-10.8) K/ul Hgb 9.3 L (12.0-16.0) g/dl Hct 28.5 L (34.1-44.9) % Plt Count 127 L (130-400) K/uL BMP 03/18/22 03/19/22 23:14 05:35 Sodium 136 134 L Potassium 3.8 3.7 Chloride 97 L 97 L Carbon Dioxide 29 30 BUN 33 H 32 H Creatinine 1.67 H 1.55 H Glucose 122 H 137 H Calcium 9.1 8.9
[2022-03-20 06:55] LABS: Hematocrit (blood only) 28.7 % (34.1-44.9); Hemoglobin 9.6 g/dl (12.0-16.0); Mean Corpuscular Hemoglobin 29.8 pg (25.0-34.0); Mean Corpuscular Hgb Conc 33.4 g/dL (32.0-36.0); Mean Corpuscular Volume 89.1 fL (80.0-100.0); Mean Platelet Volume 9.6 fL (9.4-12.3); Platelet Count 135 K/uL (130-400); RDW Coefficient of Variation 15.3 % (11.5-14.5); RDW Standard Deviation 49.9 fL (36.4-46.3); Red Blood Count 3.22 M/uL (3.93-5.22); White Blood Count 4.93 K/ul (4.8-10.8)
[2022-03-20 07:28] LABS: BUN Creatinine Ratio 24.2 (10-20); Creatinine Clr Calc Pharmacy 60.6 ml/min; Est GFR (African American) 51.1 ml/min; Magnesium 1.5 mg/dl (1.7-2.4); Potassium 4.2 mmol/L (3.5-5.1)
[2022-03-20] MEDS: LIDOCAINE 5% 1 PATCH TD SCH (07:42)
[2022-03-20] MEDS: LANTUS PER UNIT CHARGE SQ SCH (08:34)
[2022-03-20] MEDS: INSULIN ASPART PER UNIT SC SCH ×4 (08:34→21:21)
[2022-03-20] MEDS: POTASSIUM CHLORIDE CRTAB 20 MEQ TABCR PO SCH ×2 (08:34→20:42)
[2022-03-20] MEDS: FUROSEMIDE 40 MG/4 ML VIAL IV SCH ×3 (08:35→18:00)
[2022-03-20] MEDS: CHOLECALCIFEROL 1,000 UNITS 25 MCG TAB PO SCH (08:35)
[2022-03-20] MEDS ORDERED: MAGNESIUM SULFATE / D5W 1 GM/100 ML BAG IV ONE (08:59)
--- NOTE | 2022-03-20 09:38 | Nephrology Progress Note ---
Date of Service March 20, 2022 Assessment & Plan Admission and Anticipated Discharge Date Admission Date: March 17, 2022 Subjective Subjective S--no new issues. more urine at 2100 ml with lasix 80 iv tid. Still massive edema. PHYSICAL EXAMINATION: GENERAL: Middle-aged white female who is obese. She is awake, alert, and oriented and was able to give me a detailed account of her medical history and problem. HEENT: Mucous membrane is moist. NECK: Supple and obese neck. Could not appreciate JVD. CHEST: Bilateral decreased breath sound. Poor inspiratory effort limiting the quality of exam. CARDIOVASCULAR: S1 and S2 regular. ABDOMEN: Soft, distended with significant ascites. EXTREMITIES: Bilaterally 3-4+ edema, pitting type and very densely edematous. NEUROLOGIC: Normal speech. Awake, alert, oriented x3. She does not seem confused at this time and was able to give a detailed account of her medical history. Normal speech. LABORATORY TEST: labs reviewed. creat down a bit ASSESSMENT AND PLAN: A 61-year-old female admitted to the hospital after she fell from her bed and was found to have left sided rib fracture as well as bilateral significant pulmonary embolism. I have been consulted for acute renal failure in a patient with liver cirrhosis and now diagnosed as having bilateral pulmonary embolism. Acute renal failure: Given that the patient has liver disease with cirrhosis, she is always at high risk for having acute renal failure when the slightest of hemodynamic compromise. Even though she is not hypoxic currently does not mean she could not have been hypoxic in the days before related with bilateral pulmonary embolism. So the current rise in creatinine is to be expected and not at all surprising in the setting of bilateral pulmonary embolism. She does have massive edema, which is hard to interpret given that she has background liver cirrhosis, but now also has bilateral pulmonary embolism with deep venous thrombosis and all of these things can make edema worse. She received IV contrast earlier today, so there is significant high risk of having major worsening in her kidney function in the coming days. Rec: 1 Creat down a bit --great news. 3 Slightly better diuresis- 2100 ml. Continue lasix to 80iv q8hr for now. 3 na slightly low but this is still hypervolemic given we have hardly made any difference in edema or diuresis. Results & Data ([facility]) Vital Signs (Past 12 Hours) Vital Signs Temp Pulse Pulse Pulse Resp BP Pulse Ox 03/20/22 07:07 36.9 C 92 H 17 118/79 98 03/20/22 04:56 99 H 03/20/22 02:48 36.7 C 95 H 20 129/81 90 03/20/22 02:35 93 H 03/19/22 23:00 99 H 03/19/22 22:48 36.5 C 98 H 20 127/91 92 03/19/22 21:50 100 H Pulse Ox O2 Del Method O2 Del Method O2 Flow Rate FiO2 03/20/22 07:07 Nasal Cannula 2 03/20/22 04:56 92 Room Air 03/20/22 02:48 Room Air 03/20/22 02:35 92 Room Air 03/19/22 23:00 03/19/22 22:48 Room Air 03/19/22 21:50 93 Room Air 21
[2022-03-20] MEDS: oxyCODONE/ACETAMINOPHEN 5mg/325mg TAB PO PRN ×2 (10:01→20:44)
--- NOTE | 2022-03-20 10:18 | Pulmonology Progress Note ---
Date of Service March 20, 2022 Assessment & Plan (1) Pulmonary emboli: Acute cor pulmonale presence: without acute cor pulmonale Chronicity: acute Pulmonary embolism type: saddle Qualified Code(s): I26.92 - Saddle embolus of pulmonary artery without acute cor pulmonale (2) DVT (deep venous thrombosis): Affected thrombotic vein of extremity: unspecified vein of extremity Chronicity: acute DVT location: lower extremity Laterality: left Qualified Code(s): I82.402 - Acute embolism and thrombosis of unspecified deep veins of left lower extremity (3) Left rib fracture: Encounter type: initial encounter Fracture type: closed Rib fracture type: multiple ribs Qualified Code(s): S22.42XA - Multiple fractures of ribs, left side, initial encounter for closed fracture Plan CT chest 03/17/2022 personally reviewed: Elevated right hemidiaphragm, nondisplaced left-sided rib fractures Saddle pulmonary embolism appreciated with no right heart strain No mediastinal adenopathy Large abdominal ascites appreciated -- Submassive PE with acute DVT sPESI 0, low risk, 1.1% risk of Acute DVT in the left lower extremity Continue with heparin drip for 24-48 hours and if there is no clinical deterioration can transition to p.o. anticoagulation 2D echo 03/17/2022: EF greater than 70%, small left ventricular cavity, moderate concentric LVH, Morgan sign present with hypokinesis of the right ventricular apex. --Left-sided rib fractures Nondisplaced Continue with pain management Incentive spirometry -- Hepatic cirrhosis Patient has significant large abdominal ascites Case discussed with Dr. Mihai Motley, there does not seem to be significant compression of the IVC, renal or the pelvic veins. -- Morbid obesity --Probable ANEL Recommend outpatient polysomnography Plan: In/out: - 777, urine output 2100, Continue with incentive spirometry Patient is found to have paracentesis done today. Do think this was benefit her breathing as well as atelectasis that she has in the lower lobes Recommend continue with heparin drip till decision is made regarding the large abdominal ascites and then she can be transition to p.o. anticoagulants Please note the above document was generated using voice recognition software. It may contain grammatical, syntax or spelling errors.Any formal questions or concerns about the content, text or information contained within the body of this dictation should be directly addressed to the provider for clarification. Admission and Anticipated Discharge Date Admission Date: March 17, 2022 Subjective Patient seen and examined at bedside. No acute distress, no adverse events overnight She did need oxygen when she was sleeping At time of examination she was on room air saturating 92-94% She has been using incentive spirometer Does complain of left-sided chest pain where she had the rib fractures No dizziness, no nausea vomiting Fair appetite Review of Systems Review of Systems: All systems reviewed & are unremarkable except as noted in Subjective Physical Exam Physical Exam: Constitutional: No acute distress HEENT: EOMI, PERRLA Respiratory system: Decreased air entry bilaterally, no wheeze, no rhonchi, mild crackles bilateral lower lobes CVS: S1-S2 positive, no murmurs or gallops Abdomen: Soft, nontender, positive bowel sounds x4, distended, dull to percussion Extremities: +2 pulses bilaterally radialis/ dorsalis pedis, no cyanosis, +3 pitting edema bilateral lower extremity Neuro: Awake alert oriented x3 Psych: Normal mood and affect G/U: No [place] Skin: no rashes, warm and dry Lymphatic: no cervical or axillary lymphadenopathy Results & Data Results & Data ([facility]) Vital Signs (Past 12 Hours) Vital Signs Temp Pulse Pulse Pulse Resp BP Pulse Ox 03/20/22 07:07 36.9 C 92 H 17 118/79 98 03/20/22 04:56 99 H 03/20/22 02:48 36.7 C 95 H 20 129/81 90 03/20/22 02:35 93 H 03/19/22 23:00 99 H 03/19/22 22:48 36.5 C 98 H 20 127/91 92 Pulse Ox O2 Del Method O2 Del Method O2 Flow Rate 03/20/22 07:07 Nasal Cannula 2 03/20/22 04:56 92 Room Air 03/20/22 02:48 Room Air 03/20/22 02:35 92 Room Air 03/19/22 23:00 03/19/22 22:48 Room Air Laboratory Results 03/20/22 06:30 03/20/22 06:30 PG Care Time/CCT Total # of Minutes Spent Total Time Spent with Patient: Total time spent is greater than 50% in coordination of care (as documented) at patient's floor/unit and/or counseling patient: Coding Level of Care Code 38130 Subseq Hosp Care Lvl 2 Diagnoses Pulmonary emboli I26.92 Acute cor pulmonale presence: without acute cor pulmonale Chronicity: acute Pulmonary embolism type: saddle DVT (deep venous thrombosis) I82.402 Affected thrombotic vein of extremity: unspecified vein of extremity Chronicity: acute DVT location: lower extremity Laterality: left Left rib fracture S22.42XA Encounter type: initial encounter Fracture type: closed Rib fracture type: multiple ribs
--- NOTE | 2022-03-20 13:16 | Gastroenterology Progress Note ---
Date of Service March 20, 2022 Assessment & Plan (1) Hepatic cirrhosis: (2) Fall: (3) Pulmonary emboli: (4) DVT (deep venous thrombosis): Plan: Pt is a 61 yo female w suspected JOYCE cirrhosis (current MELD 19), admitted following a fall out of bed, found to have PE, DVT, BLAIRE on admission with symptoms of SOB, abd distension full ascites & leg edema - Low Na (2g) diet - US paracentesis w cell ct and fluid analysis, Albumin IV repletion today - Continue current diuretics for now (Lasix 80mg IV TID), monitor electrolytes and renal function closely. Appreciate Nephrology's recs - PE and DVT management per primary team; on Heparin gtt currently on hold for paracentesis - OP follow with Dr. Mace for continued cirrhosis management, upcoming appt in May in clinic and for colonoscopy. Should have EGD for variceal screening. Up to date U/S for HCC screening done in January. - Avoid ETOH, no APAP >2g day recommended Admission and Anticipated Discharge Date Admission Date: March 17, 2022 Supervising Physician Co-Signing Physician Notes I saw and evaluated the patient with [facility]. We were consulted due to her history of JOYCE cirrhosis and volume overload/ascites. She was also found to have extensive PE and LLE DVT this admission as well as BLAIRE. She has large ascites noted on a CT abd/pelvis with contrast from 03/17 with patent portal vein. She has 4+ pitting edema to the thighs currently on IV lasix 80 mg TID. Nephrology is also following given BLAIRE and hypervolemic hyponatremia. Total UOP 2.1L with net negative 1.03L the past 24 hours. Renal function improving (1.5-->1.3). Na 134 today. MELD-Na today is 18. Physical examination HEENT: sclera anicteric Respiratory: normal respiratory effort Abdomen: soft, distended, non-tender, notable abdominal wall edema, unable to appreciate hepatosplenomegaly given body habitus, + BS Neuro: AAOx3, no asterixis Extremities: 4+ pitting edema to the thighs Impression: History of JOYCE cirrhosis c/b ascites. Previously well compensated and ascites had been controlled with diuretics. Now with new extensive bilateral PE with saddle embolus and LLE DVT as well as BLAIRE and volume overload with ascites. No evidence of PVT on CT abd/pelvis completed 03/17. She is going for paracentesis this afternoon. Plan: -Continue diuretics as recommended by nephrology (Lasix 80 mg IV TID). She still has extensive edema and has a ways to go with volume removal. Limit fluid intake to 1.2L daily. -Na restricted (2 grams/daily) diet -Strict I+Os -Close monitoring of renal function and electrolytes -She has a paracentesis scheduled this afternoon. Please replete with IV albumin as needed per protocol and send for cell count and differential, culture, total protein, and albumin to ensure no SBP -PE and DVT management per primary team. Currently being managed with a heparin gtt. -Daily MELD labs -She follows with Dr. Mace as an outpatient. She has a colonoscopy scheduled for 05/2022 and should also undergo EGD at some point for variceal screening given new decompensation. Will see if we can add EGD to May appointment. Will be especially important to screen for varices given patient will now require long-term anticoagulation. -Recent CT scan from 03/17 without any liver lesions noted. Should undergo HCC screening every 6 months with RUQ US in conjunction with AFP -GI will follow Lillian Nolasco, Gastroenterology and Hepatology Subjective Pt is scheduled for US paracentesis at 2PM. She is c/o increased abd distension, and leg swelling, feels uncomfortable. Review of Systems Review of Systems: All systems reviewed & are unremarkable except as noted in HPI & below Physical Exam Constitutional: WD/WN, vitals as above well groomed, cooperative and comfortable Eyes: PERRL, conjunctivae normal, anicteric sclerae ENMT: external ear and nose normal, oropharynx normal Respiratory: Diminished bilateral bases Cardiovascular: RRR, no murmur, no edema Gastrointestinal (Abdomen): Abd distended w wall edema noted, non tender, BS hypoactive Skin: no rashes, warm and dry no jaundice Neurologic: Motor/Sensory: no asterixis Psychiatric: A+Ox3, euthymic affect Lymphatic: generalized leg edema Results & Data ([facility]) Vital Signs (Past 12 Hours) Vital Signs Temp Pulse Pulse Resp BP Pulse Ox Pulse Ox 03/20/22 10:57 36.9 C 106 H 17 125/86 91 03/20/22 07:07 36.9 C 92 H 17 118/79 98 03/20/22 04:56 99 H 92 03/20/22 02:48 36.7 C 95 H 20 129/81 90 03/20/22 02:35 93 H 92 O2 Del Method O2 Del Method O2 Flow Rate 03/20/22 10:57 Room Air 03/20/22 07:07 Nasal Cannula 2 03/20/22 04:56 Room Air 03/20/22 02:48 Room Air 03/20/22 02:35 Room Air (1) DVT (deep venous thrombosis) Affected thrombotic vein of extremity: unspecified vein of extremity Chronicity: acute DVT location: lower extremity Laterality: left Qualified Code(s): I82.402 - Acute embolism and thrombosis of unspecified deep veins of le ft lower extremity (2) Pulmonary emboli Acute cor pulmonale presence: without acute cor pulmonale Chronicity: acute Pulmonary embolism type: saddle Qualified Code(s): I26.92 - Saddle embolus of pulmonary artery without acute cor pulmonale (3) Fall Encounter type: initial encounter Qualified Code(s): W19.XXXA - Unspecified fall, initial encounter
[2022-03-20 14:30] LABS: Albumin Level 3.7 gm/dl (3.4-5.0); Bilirubin Direct 0.2 mg/dl (0-0.2); Bilirubin,Total 0.9 mg/dl (0.2-1.0); Total Protein 6.6 gm/dl (6.0-8.3)
--- NOTE | 2022-03-20 15:03 | Ultrasound Report ---
ULTRASOUND-GUIDED DIAGNOSTIC AND THERAPEUTIC PARACENTESIS: HISTORY: Ascites Procedure: The procedure and its risks, benefits and alternatives were discussed with the patient and written informed consent was obtained. Preliminary ultrasound of the abdomen was performed to determ ine a safe needle entry site. The left lower quadrant was prepped and draped in the usual sterile fashion. 1% Lidocaine was used fo r local anesthesia. A paracentesis needle-sheath was inserted into the peritoneal space using ultraso und guidance. The needle was removed and the sheath was connected to tubing and a vacuum suction dimas ce. A total of 3 liters of yellow ascites was aspirated. The sheath was removed and a sterile dressin g applied. The patient tolerated the procedure well and there were no immediate complications. IMPRESSION: Ultrasound-guided diagnostic and therapeutic paracentesis with aspiration of 3 liters of ascites. 1 L was sent to the laboratory at the request of the referring physician. ACT 112: Negative or not required by law. Electronically signed by: Abe Florentino M.D. 03/20/2022 3:02 PM
[2022-03-20 15:36] LABS: Total Protein Peritoneal Fluid 3.6 gm/dl
[2022-03-20 16:49] LABS: Appearance Peritoneal Fluid Clear; Color Peritoneal Fluid Yellow; Eosinophils, Fluid 1 %; Lymphocytes, Fluid 21 %; Mono,Macrophage,Mesothelial 70 %; Neutrophils, Fluid 8 %; RBC Peritoneal Fluid (A) < 2000 /uL; WBC Peritoneal Fluid (A) 125 /ul (0-300)
--- NOTE | 2022-03-20 18:23 | Hospitalist Progress Note ---
Date of Service March 20, 2022 Assessment & Plan (1) Saddle pulmonary embolus: Plan: Acute Saddle pulmonary embolism Acute DVT of Left LE Hx of COVID infection in Jul was vaccinated in 2020 x 2 doses --CT Chest:Extensive bilateral pulmonary emboli including a saddle embolus within the main pulmonary arteries. No evidence for right-sided heart strain at this time. Acute left anterior third through fifth rib fractures. No pneumothorax. Additional subacute to chronic fractures within the chest and abdomen as described above. Cirrhotic liver with splenomegaly and a large amount of ascites. This has slightly progressed. Moderate to severe body wall edema again noted. Mildly enlarged anterior diaphragmatic and periportal lymph nodes remain unchanged. --ECHO: Aortic valve sclerosis mild, without significant aortic valvular sten osis. Left ventricle cavity is small. Moderate concentric LVH. Left ventricle wall motion is normal. Left ventricle is hyperdynamic. EF greater than 70%. Neck: Sign present with hypokinesis of the right ventricular apex with sparing of the basilar structures and mild apical dilatation consistent with acute pulmonary embolus. Trace tricuspid insufficiency is present --Venous Doppler:Acute appearing occlusive thrombus in the left lower extremity superficial femoral and popliteal veins. Soft tissue edema in the bilateral calf. No definite thrombus of the calf vessels despite limited evaluation. If any clinical deterioration, then tPA will be pursued Appreciate pulmonology input Supplemental oxygen as needed Continue IV Heparin today as had paracentesis Transition to PO anticoagulation as able Nocturnal Hypoxia Likely ANEL/OHS Nocturnal Oximetry completed May also need 2 step prior to discharge Will need outpatient sleep study (2) Hepatic cirrhosis: Plan: - Nonalcoholic, hepatitis panel was conducted 01/27/2022 as reviewed in outpatient epic and is negative for hep A, B, C - MELD score 15 today, previously 13 - Scheduled with Dr. Mace as outpatient with hepatology on 05/05/22: In end of December pt was placed on lasix 20 mg daily and spironolactone 50 mg daily, lasix was increased to 40 mg daily on 02/11, now she is up to lasix 40 mg daily and spironolactone 100 mg daily. -Volume overload status --Continue diuretics as per Nephrology --Monitor volume status --Appreciate GI input --Fluid restriction, Low Na diet --Had paracentesis today --Needs follow up with GI upon discharge (3) Diabetes: Plan: -Last A1c was 9.1 on 01/13/2022 -Holding metformin Continue Insulin (4) Asthma: Plan: -Continue albuterol sulfate (5) Rib fractures: Plan: Left-sided rib fractures Nondisplaced Secondary to fall Continue incentive spirometer Pain control (6) BLAIRE (acute kidney injury): Plan: Cr:1.78>1.5>1.3 Received Contrast In setting of volume overload Appreciate nephrology input Replace potassium for hypokalemia as needed Monitor renal function Continue IV diuresis (7) Fall: Plan: Mechanical fall Fall precautions PT/OT Abnormal UA Ruled out UTI Urine Cx Mixed ashley Empirically received Rocephin for 3 days DVT Px: on IV Heparin CODE STATUS: Full code Disposition PT/OT prior to discharge (8) UTI (urinary tract infection): Admission and Anticipated Discharge Date Admission Date: March 17, 2022 Subjective Patient is seen and examined at bedside Had paracentesis earlier today Denies any bleeding issues while on IV heparin IV heparin held for paracentesis today Denies chest pain, dyspnea, dizziness Persistent leg swelling Review of Systems Review of Systems: All systems reviewed & are unremarkable except as noted in Subjective Physical Exam Physical Exam: Physical Exam: Vitals signs as noted above General Appearance:Obese, No apparent distress Head: normocephalic, Atraumatic Eyes: normal inspection, EOMI Neck: supple, Trachea midline Respiratory/Chest: Decreased breath sounds, CTA, No accessory muscle use Cardiovascular: S1, S2, No murmur Abdomen/GI:Soft, abd distended, Non tender, Bowel sounds present Extremities/Musculoskeletal:normal inspection, +3 B/L LE edema Neurologic/Psych:AAOX3, grossly no focal neurological deficits Skin: normal color, warm Results & Data Results & Data ([facility]) Vital Signs (Past 12 Hours) Vital Signs Temp Pulse Resp BP BP Pulse Ox O2 Del Method 03/20/22 15:08 95 H 16 129/83 91 Room Air 03/20/22 14:43 92 H 18 112/87 91 Room Air 03/20/22 14:59 36.8 C 91 H 17 125/79 92 Room Air 03/20/22 10:57 36.9 C 106 H 17 125/86 91 Room Air 03/20/22 07:07 36.9 C 92 H 17 118/79 98 Nasal Cannula O2 Flow Rate 03/20/22 15:08 03/20/22 14:43 03/20/22 14:59 03/20/22 10:57 03/20/22 07:07 2 Laboratory Results Short CBC 03/20/22 Range/Units 06:30 WBC 4.93 (4.8-10.8) K/ul Hgb 9.6 L (12.0-16.0) g/dl Hct 28.7 L (34.1-44.9) % Plt Count 135 (130-400) K/uL BMP 03/20/22 06:30 Sodium 134 L Potassium 4.2 Chloride 97 L Carbon Dioxide 29 BUN 32 H Creatinine 1.32 H Glucose 157 H Calcium 9.0 Liver Function 03/20/22 Range/Units 06:30 Total Bilirubin 0.9 (0.2-1.0) mg/dl Direct Bilirubin 0.2 (0-0.2) mg/dl AST 15 (13-39) U/L ALT 7 (7-52) U/L Alkaline Phosphatase 46 (34-104) U/L Albumin 3.7 (3.4-5.0) gm/dl
[2022-03-21 00:25] LABS: Partial Thromboplastin Ratio 1.6
[2022-03-21 00:54] LABS: Partial Thromboplastin Time 45.3 Seconds (21.0-31.0)
[2022-03-21 07:50] LABS: BUN Creatinine Ratio 25.2 (10-20); Calcium 8.9 mg/dl (8.5-10.1); Creatinine Clr Calc Pharmacy 65.8 ml/min; Est GFR (African American) 57.9 ml/min; Est GFR (Non-African American) 49.9 ml/min; Magnesium 1.5 mg/dl (1.7-2.4); Potassium 4.4 mmol/L (3.5-5.1)
[2022-03-21] MEDS ORDERED: MAGNESIUM SULFATE / D5W 1 GM/100 ML BAG IV ONE (09:00)
[2022-03-21] MEDS: INSULIN ASPART PER UNIT SC SCH ×4 (09:03→20:36)
[2022-03-21 09:04] LABS: Partial Thromboplastin Ratio 1.9
[2022-03-21] MEDS: LANTUS PER UNIT CHARGE SQ SCH (09:04)
[2022-03-21] MEDS: APIXABAN 5 MG TABLET PO SCH ×2 (09:09→20:34)
[2022-03-21] MEDS: MAGNESIUM CHLORIDE W/CALCIUM 64MG DELAYED REL TAB PO SCH ×2 (09:10→20:35)
[2022-03-21] MEDS: LIDOCAINE 5% 1 PATCH TD SCH (09:10)
[2022-03-21] MEDS: FUROSEMIDE 40 MG/4 ML VIAL IV SCH ×3 (09:10→17:23)
[2022-03-21] MEDS: CHOLECALCIFEROL 1,000 UNITS 25 MCG TAB PO SCH (09:10)
[2022-03-21] MEDS: POTASSIUM CHLORIDE CRTAB 20 MEQ TABCR PO SCH ×2 (09:11→20:35)
[2022-03-21 09:47] LABS: Partial Thromboplastin Time 53.2 Seconds (21.0-31.0)
--- NOTE | 2022-03-21 09:54 | Pulmonology Progress Note ---
Date of Service March 21, 2022 Assessment & Plan (1) Pulmonary emboli: Acute cor pulmonale presence: without acute cor pulmonale Chronicity: acute Pulmonary embolism type: saddle Qualified Code(s): I26.92 - Saddle embolus of pulmonary artery without acute cor pulmonale (2) DVT (deep venous thrombosis): Affected thrombotic vein of extremity: unspecified vein of extremity Chronicity: acute DVT location: lower extremity Laterality: left Qualified Code(s): I82.402 - Acute embolism and thrombosis of unspecified deep veins of left lower extremity (3) Left rib fracture: Encounter type: initial encounter Fracture type: closed Rib fracture type: multiple ribs Qualified Code(s): S22.42XA - Multiple fractures of ribs, left side, initial encounter for closed fracture Plan CT chest 03/17/2022 personally reviewed: Elevated right hemidiaphragm, nondisplaced left-sided rib fractures Saddle pulmonary embolism appreciated with no right heart strain No mediastinal adenopathy Large abdominal ascites appreciated -- Submassive PE with acute DVT sPESI 0, low risk, 1.1% risk of Acute DVT in the left lower extremity Continue with heparin drip for 24-48 hours and if there is no clinical deterioration can transition to p.o. anticoagulation 2D echo 03/17/2022: EF greater than 70%, small left ventricular cavity, moderate concentric LVH, Morgan sign present with hypokinesis of the right ventricular apex. --Left-sided rib fractures Nondisplaced Continue with pain management Incentive spirometry -- Hepatic cirrhosis Patient has significant large abdominal ascites Case discussed with Dr. Mihai Motley, there does not seem to be significant compression of the IVC, renal or the pelvic veins. -- Morbid obesity -- Nocturnal hypoxia secondary to probable ANEL Recommend outpatient polysomnography Continue with 2 L oxygen whenever patient is sleeping Plan: In/out: -1670, urine output 2225 Continue with incentive spirometry Okay to transition to p.o. anticoagulant Recommend outpatient polysomnography Please note the above document was generated using voice recognition software. It may contain grammatical, syntax or spelling errors.Any formal questions or concerns about the content, text or information contained within the body of this dictation should be directly addressed to the provider for clarification. Admission and Anticipated Discharge Date Admission Date: March 17, 2022 Subjective Patient seen and examined at bedside. No acute distress, no adverse events overnight. She did have paracentesis done yesterday and felt much better after that Breathing is significantly improved. Denies any chest pain, no headache, no nausea, no vomiting Fair appetite Patient was saturating 99% on 3 L nasal cannula. I turned it off and she was still saturating 94-95% Review of Systems Review of Systems: All systems reviewed & are unremarkable except as noted in Subjective Physical Exam Physical Exam: Constitutional: No acute distress HEENT: EOMI, PERRLA Respiratory system: Decreased air entry bilaterally, no wheeze, no rhonchi, mild crackles bilateral lower lobes CVS: S1-S2 positive, no murmurs or gallops Abdomen: Soft, nontender, positive bowel sounds x4, distended, dull to percussion Extremities: +2 pulses bilaterally radialis/ dorsalis pedis, no cyanosis, +3 pitting edema bilateral lower extremity Neuro: Awake alert oriented x3 Psych: Normal mood and affect G/U: No [place] Skin: no rashes, warm and dry Lymphatic: no cervical or axillary lymphadenopathy Results & Data Results & Data ([facility]) Vital Signs (Past 12 Hours) Vital Signs Temp Pulse Pulse Resp BP Pulse Ox O2 Del Method 03/21/22 07:02 36.4 C L 87 16 119/75 99 Nasal Cannula 03/21/22 03:15 36.1 C L 81 18 104/70 99 Nasal Cannula 03/20/22 23:00 85 03/20/22 22:59 36.6 C 79 16 94/66 L 98 Nasal Cannula Laboratory Results 03/20/22 06:30 03/21/22 07:25 PG Care Time/CCT Total # of Minutes Spent Total Time Spent with Patient: Total time spent is greater than 50% in coordination of care (as documented) at patient's floor/unit and/or counseling patient: Coding Level of Care Code 61401 Subseq Hosp Care Lvl 2 Diagnoses Pulmonary emboli I26.92 Acute cor pulmonale presence: without acute cor pulmonale Chronicity: acute Pulmonary embolism type: saddle DVT (deep venous thrombosis) I82.402 Affected thrombotic vein of extremity: unspecified vein of extremity Chronicity: acute DVT location: lower extremity Laterality: left Left rib fracture S22.42XA Encounter type: initial encounter Fracture type: closed Rib fracture type: multiple ribs
--- NOTE | 2022-03-21 11:47 | Gastroenterology Progress Note ---
Date of Service March 21, 2022 Assessment & Plan (1) Hepatic cirrhosis: Plan Pt is a 61 yo female w suspected JOYCE cirrhosis (current MELD 19), admitted following a fall out of bed, found to have PE, DVT, BLAIRE on admission with symptoms of SOB, abd distension full ascites & leg edema (1) Hepatic cirrhosis: (2) Fall: (3) Pulmonary emboli: (4) DVT (deep venous thrombosis): Plan: - Low Na (2g) diet - US paracentesis w cell ct and fluid analysis without evidence of SBP and SAAG >1.1 - Continue current diuretics for now (Lasix 80mg IV TID), monitor electrolytes and renal function closely. Appreciate Nephrology's recs - PE and DVT management per primary team; on Heparin gtt currently on hold for paracentesis - OP follow with Dr. Mace for continued cirrhosis management, upcoming appt in May in clinic and for colonoscopy. Should have EGD for variceal screening. Up to date U/S for HCC screening done in January. - Avoid ETOH, no APAP >2g day recommended -She follows with Dr. Mace as an outpatient. She has a colonoscopy scheduled for 05/2022 and should also undergo EGD at some point for variceal screening given new decompensation. Will see if we can add EGD to May appointment. Will be especially important to screen for varices given patient will now require long-term anticoagulation. -Recent CT scan from 03/17 without any liver lesions noted. Should undergo HCC screening every 6 months with RUQ US in conjunction with AFP -GI will follow Admission and Anticipated Discharge Date Admission Date: March 17, 2022 Subjective Feels better, has appetite and states improved from yesterday Review of Systems Review of Systems: 10 system as per HPI Physical Exam Physical Exam: A and O x 3 NEGRON NAD RRR NABS/soft/mildly distended anasarca no asterixis Results & Data ([facility]) Vital Signs (Past 12 Hours) Vital Signs Temp Pulse Pulse Resp BP Pulse Ox O2 Del Method 03/21/22 11:29 37.1 C 100 H 20 108/73 92 Room Air 03/21/22 08:00 84 03/21/22 08:00 Room Air 03/21/22 07:02 36.4 C L 87 16 119/75 99 Nasal Cannula 03/21/22 03:15 36.1 C L 81 18 104/70 99 Nasal Cannula
--- NOTE | 2022-03-21 15:57 | Hospitalist Progress Note ---
Date of Service March 21, 2022 Assessment & Plan (1) Saddle pulmonary embolus: Plan: Acute Saddle pulmonary embolism Acute DVT of Left LE Hx of COVID infection in Jul was vaccinated in 2020 x 2 doses --CT Chest:Extensive bilateral pulmonary emboli including a saddle embolus within the main pulmonary arteries. No evidence for right-sided heart strain at this time. Acute left anterior third through fifth rib fractures. No pneumothorax. Additional subacute to chronic fractures within the chest and abdomen as described above. Cirrhotic liver with splenomegaly and a large amount of ascites. This has slightly progressed. Moderate to severe body wall edema again noted. Mildly enlarged anterior diaphragmatic and periportal lymph nodes remain unchanged. --ECHO: Aortic valve sclerosis mild, without significant aortic valvular sten osis. Left ventricle cavity is small. Moderate concentric LVH. Left ventricle wall motion is normal. Left ventricle is hyperdynamic. EF greater than 70%. Neck: Sign present with hypokinesis of the right ventricular apex with sparing of the basilar structures and mild apical dilatation consistent with acute pulmonary embolus. Trace tricuspid insufficiency is present --Venous Doppler:Acute appearing occlusive thrombus in the left lower extremity superficial femoral and popliteal veins. Soft tissue edema in the bilateral calf. No definite thrombus of the calf vessels despite limited evaluation. If any clinical deterioration, then tPA will be pursued Appreciate pulmonology input Supplemental oxygen as needed Continue IV Heparin >>Transitioned to Eliquis Nocturnal Hypoxia Likely ANEL/OHS Nocturnal Oximetry completed May also need 2 step prior to discharge Will need outpatient sleep study (2) Hepatic cirrhosis: Plan: - Nonalcoholic, hepatitis panel was conducted 01/27/2022 as reviewed in outpatient epic and is negative for hep A, B, C - MELD score 15 today, previously 13 - Scheduled with Dr. Mace as outpatient with hepatology on 05/05/22: In end of December pt was placed on lasix 20 mg daily and spironolactone 50 mg daily, lasix was increased to 40 mg daily on 02/11, now she is up to lasix 40 mg daily and spironolactone 100 mg daily. -Volume overload status --S/P Paracentesis:aspiration of 3 liters of ascites, No SBP --Continue diuretics as per Nephrology --Monitor volume status --Appreciate GI input --Fluid restriction, Low Na diet --Needs follow up with GI upon discharge (3) Diabetes: Plan: -Last A1c was 9.1 on 01/13/2022 -Holding metformin Continue Insulin (4) Asthma: Plan: -Continue albuterol sulfate (5) Rib fractures: Plan: Left-sided rib fractures Nondisplaced Secondary to fall Continue incentive spirometer Pain control (6) BLAIRE (acute kidney injury): Plan: Cr:1.78>1.5>1.3>1.19 Received Contrast In setting of volume overload Appreciate nephrology input Replace potassium for hypokalemia as needed Monitor renal function Continue IV diuresis as per Nephrology (7) Fall: Plan: Mechanical fall Fall precautions PT/OT Abnormal UA Ruled out UTI Urine Cx Mixed ashley Empirically received Rocephin for 3 days DVT Px: on IV Heparin CODE STATUS: Full code Disposition PT/OT prior to discharge (8) UTI (urinary tract infection): Admission and Anticipated Discharge Date Admission Date: March 17, 2022 Subjective Patient is seen and examined at bedside Feels much better after paracentesis yesterday States her breathing is better and slept well overnight Denies chest pain, dyspnea, dizziness Renal function continues to improve Review of Systems Review of Systems: All systems reviewed & are unremarkable except as noted in Subjective Physical Exam Physical Exam: Physical Exam: Vitals signs as noted above General Appearance:Obese, No apparent distress Head: normocephalic, Atraumatic Eyes: normal inspection, EOMI Neck: supple, Trachea midline Respiratory/Chest: Decreased breath sounds, CTA, No accessory muscle use Cardiovascular: S1, S2, No murmur Abdomen/GI:Soft, abd distended, Non tender, Bowel sounds present Extremities/Musculoskeletal:normal inspection, +3 B/L LE edema Neurologic/Psych:AAOX3, grossly no focal neurological deficits Skin: normal color, warm Results & Data Results & Data ([facility]) Vital Signs (Past 12 Hours) Vital Signs Temp Pulse Pulse Resp BP Pulse Ox O2 Del Method 03/21/22 15:20 106 H 03/21/22 11:29 37.1 C 100 H 20 108/73 92 Room Air 03/21/22 08:00 84 03/21/22 08:00 Room Air 03/21/22 07:02 36.4 C L 87 16 119/75 99 Nasal Cannula Laboratory Results [facility] 03/21/22 07:25 Sodium 137 Potassium 4.4 Chloride 99 Carbon Dioxide 33 H BUN 30 H Creatinine 1.19 Glucose 127 H Calcium 8.9
--- NOTE | 2022-03-21 16:57 | Nephrology Progress Note ---
Date of Service March 21, 2022 Assessment & Plan (1) BLAIRE (acute kidney injury): Plan: 61-year-old female admitted to the hospital after she fell from her bed and was found to have left sided rib fracture as well as bilateral significant pulmonary embolism.Nephrology consulted for acute renal failure in a patient with liver cirrhosis with newly diagnosed bilateral pulmonary embolism. -Given that the patient has liver disease with cirrhosis, she is always at high risk for having acute renal failure when the slightest of hemodynamic compr omise.She also has massive edema, which is hard to interpret given that she has background liver cirrhosis,and now also has bilateral pulmonary embolism with deep venous thrombosis making the edema worse. She also received IV contrast , so there is significant high risk of having major worsening in her kidney function - Renal function has improved and her SCr is almost normal, UOP continues to be good and she is comfortbable , However she stil has significant bilateral pedal edema - Continue on 80 mg q8 Iv Lasix for now. -This will need converting to Oral furosemide + wing, once volume status improves and she is ready to be discharged. -NOn urgent follow up in nephrology in 2- 3 weeks time with BMP (2) Hepatic cirrhosis: Plan: US paracentesis w cell ct and fluid analysis without evidence of SBP and SAAG >1.1 -As per Gastro recs (3) Pulmonary emboli: (4) Fall: Admission and Anticipated Discharge Date Admission Date: March 17, 2022 Subjective Patient is seen and examined at bedside Feels much better after paracentesis yesterday States her breathing is better Denies chest pain, dyspnea, dizziness Renal function continues to improve Review of Systems Review of Systems: Comfortabel, no distress, NO abdominal pain Bilateral pedal edema 3-4+ Physical Exam Physical Exam: Middle-aged white female who is obese. She is awake, alert, and oriented and was able to give me a detailed account of her medical history and problem. HEENT: Mucous membrane is moist. NECK: Supple and obese neck. Could not appreciate JVD. CHEST: Bilateral decreased breath sound. Poor inspiratory effort limiting the quality of exam. CARDIOVASCULAR: S1 and S2 regular. ABDOMEN: Soft, distended with significant ascites. EXTREMITIES: Bilaterally 3-4+ edema, pitting type and very densely edematous. NEUROLOGIC: Normal speech. Awake, alert, oriented x3. She does not seem confused at this time and was able to give a detailed account of her medical history. Normal speech. Results & Data ([facility]) Vital Signs (Past 12 Hours) Vital Signs Temp Pulse Pulse Resp BP Pulse Ox O2 Del Method 03/21/22 16:12 38.0 C H 106 H 20 121/61 92 Room Air 03/21/22 15:20 106 H 03/21/22 11:29 37.1 C 100 H 20 108/73 92 Room Air 03/21/22 08:00 84 03/21/22 08:00 Room Air 03/21/22 07:02 36.4 C L 87 16 119/75 99 Nasal Cannula Laboratory Results 03/20/22 06:30 03/21/22 07:25 (1) Pulmonary emboli Acute cor pulmonale presence: without acute cor pulmonale Chronicity: acute Pulmonary embolism type: saddle Qualified Code(s): I26.92 - Saddle embolus of pulmonary artery without acute cor pulmonale (2) Fall Encounter type: initial encounter Qualified Code(s): W19.XXXA - Unspecified fall, initial encounter
[2022-03-21] MEDS: oxyCODONE/ACETAMINOPHEN 5mg/325mg TAB PO PRN (17:22)
[2022-03-22 05:42] LABS: Hematocrit (blood only) 30.8 % (34.1-44.9); Hemoglobin 10.2 g/dl (12.0-16.0); Mean Corpuscular Hemoglobin 29.6 pg (25.0-34.0); Mean Corpuscular Hgb Conc 33.1 g/dL (32.0-36.0); Mean Corpuscular Volume 89.3 fL (80.0-100.0); Mean Platelet Volume 9.4 fL (9.4-12.3); Platelet Count 128 K/uL (130-400); RDW Coefficient of Variation 15.3 % (11.5-14.5); RDW Standard Deviation 50.1 fL (36.4-46.3); Red Blood Count 3.45 M/uL (3.93-5.22); White Blood Count 6.71 K/ul (4.8-10.8)
[2022-03-22] MEDS: oxyCODONE/ACETAMINOPHEN 5mg/325mg TAB PO PRN (05:44)
[2022-03-22] MEDS: ONDANSETRON INJ 2 MG/ML 2 ML VIAL IV PRN (05:47)
[2022-03-22 06:02] LABS: BUN Creatinine Ratio 24.4 (10-20); Calcium 9.4 mg/dl (8.5-10.1); Creatinine Clr Calc Pharmacy 65.7 ml/min; Est GFR (African American) 57.9 ml/min; Est GFR (Non-African American) 49.9 ml/min; Magnesium 1.6 mg/dl (1.7-2.4); Potassium 4.4 mmol/L (3.5-5.1)
[2022-03-22] MEDS ORDERED: MAGNESIUM SULFATE / D5W 1 GM/100 ML BAG IV ONE (08:00)
[2022-03-22] MEDS: INSULIN ASPART PER UNIT SC SCH ×4 (08:33→21:34)
[2022-03-22] MEDS: LANTUS PER UNIT CHARGE SQ SCH (08:33)
[2022-03-22] MEDS: POTASSIUM CHLORIDE CRTAB 20 MEQ TABCR PO SCH ×2 (08:59→20:14)
[2022-03-22] MEDS: MAGNESIUM CHLORIDE W/CALCIUM 64MG DELAYED REL TAB PO SCH ×2 (08:59→20:14)
[2022-03-22] MEDS: CHOLECALCIFEROL 1,000 UNITS 25 MCG TAB PO SCH (09:00)
[2022-03-22] MEDS: APIXABAN 5 MG TABLET PO SCH ×2 (09:00→20:13)
[2022-03-22] MEDS: FUROSEMIDE 40 MG/4 ML VIAL IV SCH ×3 (09:00→17:26)
[2022-03-22] MEDS: LIDOCAINE 5% 1 PATCH TD SCH (09:00)
--- NOTE | 2022-03-22 09:31 | Pulmonology Progress Note ---
Date of Service March 22, 2022 Assessment & Plan (1) Pulmonary emboli: Acute cor pulmonale presence: without acute cor pulmonale Chronicity: acute Pulmonary embolism type: saddle Qualified Code(s): I26.92 - Saddle embolus of pulmonary artery without acute cor pulmonale (2) DVT (deep venous thrombosis): Affected thrombotic vein of extremity: unspecified vein of extremity Chronicity: acute DVT location: lower extremity Laterality: left Qualified Code(s): I82.402 - Acute embolism and thrombosis of unspecified deep veins of left lower extremity (3) Left rib fracture: Encounter type: initial encounter Fracture type: closed Rib fracture type: multiple ribs Qualified Code(s): S22.42XA - Multiple fractures of ribs, left side, initial encounter for closed fracture Plan CT chest 03/17/2022 personally reviewed: Elevated right hemidiaphragm, nondisplaced left-sided rib fractures Saddle pulmonary embolism appreciated with no right heart strain No mediastinal adenopathy Large abdominal ascites appreciated -- Submassive PE with acute DVT sPESI 0, low risk, 1.1% risk of Acute DVT in the left lower extremity Continue with heparin drip for 24-48 hours and if there is no clinical deterioration can transition to p.o. anticoagulation 2D echo 03/17/2022: EF greater than 70%, small left ventricular cavity, moderate concentric LVH, Morgan sign present with hypokinesis of the right ventricular apex. --Left-sided rib fractures Nondisplaced Continue with pain management Incentive spirometry -- Hepatic cirrhosis Patient has significant large abdominal ascites Case discussed with Dr. Mihai Motley, there does not seem to be significant compression of the IVC, renal or the pelvic veins. -- Morbid obesity -- Nocturnal hypoxia secondary to probable ANEL Recommend outpatient polysomnography Continue with 2 L oxygen whenever patient is sleeping Plan: In/out: Continue with incentive spirometry Recommend outpatient polysomnography No further recommendation from pulmonary perspective Will sign off Please contact with any questions Please note the above document was generated using voice recognition software. It may contain grammatical, syntax or spelling errors.Any formal questions or concerns about the content, text or information contained within the body of this dictation should be directly addressed to the provider for clarification. Admission and Anticipated Discharge Date Admission Date: March 17, 2022 Subjective Patient seen and examined at bedside. No acute distress, no dressings overnight. Does complain of mild nausea today No hematuria, no hematochezia No bowel movement since coming to the hospital She already got MiraLAX for Shortness of breath significantly improved She was saturating 96% on room air at the time of examination Review of Systems Review of Systems: All systems reviewed & are unremarkable except as noted in Subjective Physical Exam Physical Exam: Constitutional: No acute distress HEENT: EOMI, PERRLA Respiratory system: Decreased air entry bilaterally, no wheeze, no rhonchi, mild crackles bilateral lower lobes CVS: S1-S2 positive, no murmurs or gallops Abdomen: Soft, nontender, positive bowel sounds x4, distended, dull to percussion Extremities: +2 pulses bilaterally radialis/ dorsalis pedis, no cyanosis, +2 pitting edema bilateral lower extremity Neuro: Awake alert oriented x3 Psych: Normal mood and affect G/U: No [place] Skin: no rashes, warm and dry Lymphatic: no cervical or axillary lymphadenopathy Results & Data Results & Data ([facility]) Vital Signs (Past 12 Hours) Vital Signs Temp Pulse Pulse Resp BP Pulse Ox O2 Del Method 03/22/22 07:00 36.9 C 102 H 16 127/76 94 Room Air 03/21/22 23:00 105 H 03/22/22 03:14 36.9 C 95 H 18 117/74 94 Room Air 03/21/22 22:55 37.2 C 104 H 18 106/69 94 Room Air Laboratory Results 03/22/22 05:33 03/22/22 05:33 PG Care Time/CCT Total # of Minutes Spent Total Time Spent with Patient: Total time spent is greater than 50% in coordination of care (as documented) at patient's floor/unit and/or counseling patient: Coding Level of Care Code 43304 Subseq Hosp Care Lvl 2 Diagnoses Pulmonary emboli I26.92 Acute cor pulmonale presence: without acute cor pulmonale Chronicity: acute Pulmonary embolism type: saddle DVT (deep venous thrombosis) I82.402 Affected thrombotic vein of extremity: unspecified vein of extremity Chronicity: acute DVT location: lower extremity Laterality: left Left rib fracture S22.42XA Encounter type: initial encounter Fracture type: closed Rib fracture type: multiple ribs
[2022-03-22] MEDS: DOCUSATE SODIUM 100 MG CAP PO SCH ×2 (11:10→20:13)
[2022-03-22] MEDS: POLYETHYLENE (MIRALAX) 17 GM PACK PO SCH (11:10)
--- NOTE | 2022-03-22 11:18 | XRay Report ---
KUB CLINICAL HISTORY: constipation COMPARISON STUDY: CT of the abdomen and pelvis March 17, 2022. FINDINGS: A few prominent loops of small bowel are noted without convincing evidence for a bowel obst ruction. There is a large amount of stool within the ascending colon and hepatic flexure. There is mi nimal stool within the remainder of the colon. IMPRESSION: 1. A few prominent loops of small bowel without convincing evidence for a bowel obstruction. 2. Large amount stool within the ascending colon and hepatic flexure of the colon. Minimal stool with in the remainder of the colon and rectum. ACT 112: Negative or not required by law. Electronically signed by: Dave Triana M.D. 03/22/2022 11:17 AM
--- NOTE | 2022-03-22 12:41 | Nephrology Progress Note ---
Date of Service March 22, 2022 Assessment & Plan (1) BLAIRE (acute kidney injury): Plan: 61-year-old female admitted to the hospital after she fell from her bed and was found to have left sided rib fracture as well as bilateral significant pulmonary embolism.Nephrology consulted for acute renal failure in a patient with liver cirrhosis with newly diagnosed bilateral pulmonary embolism. -Given that the patient has liver disease with cirrhosis, she is always at high risk for having acute renal failure when the slightest of hemodynamic compr omise.She also has massive edema, which is hard to interpret given that she has background liver cirrhosis,and now also has bilateral pulmonary embolism with deep venous thrombosis making the edema worse. She also received IV contrast , so there is significant high risk of having major worsening in her kidney function - Renal function has improved and her SCr is almost normal, UOP continues to be good and she is comfortbable , However she stil has significant bilateral pedal edema - Continue on 80 mg q8 Iv Lasix for now. -This will need converting to Oral furosemide + wing, once volume status improves and she is ready to be discharged. -Non urgent follow up in nephrology in 2- 3 weeks time with BMP (2) Hepatic cirrhosis: Plan: US paracentesis w cell ct and fluid analysis without evidence of SBP and SAAG >1.1 -As per Gastro recs (3) Pulmonary emboli: (4) Fall: Admission and Anticipated Discharge Date Admission Date: March 17, 2022 Subjective Patient seen and examined at bedside. No acute distress, no dressings overnight. Does complain of mild nausea today Review of Systems Review of Systems: Comfortabel, no distress, NO abdominal pain Bilateral pedal edema 3-4+ Physical Exam Physical Exam: Middle-aged white female who is obese. She is awake, alert, and oriented and was able to give me a detailed account of her medical history and problem. HEENT: Mucous membrane is moist. NECK: Supple and obese neck. Could not appreciate JVD. CHEST: Bilateral decreased breath sound. Poor inspiratory effort limiting the quality of exam. CARDIOVASCULAR: S1 and S2 regular. ABDOMEN: Soft, distended with significant ascites. EXTREMITIES: Bilaterally 3-4+ edema, pitting type and very densely edematous. NEUROLOGIC: Normal speech. Awake, alert, oriented x3. She does not seem confused at this time and was able to give a detailed account of her medical history. Normal speech. Results & Data ([facility]) Vital Signs (Past 12 Hours) Vital Signs Temp Pulse Pulse Resp BP Pulse Ox O2 Del Method 03/22/22 10:57 36.6 C 100 H 16 134/83 95 Room Air 03/22/22 08:00 103 H 03/22/22 08:00 Room Air 03/22/22 07:00 36.9 C 102 H 16 127/76 94 Room Air 03/22/22 03:14 36.9 C 95 H 18 117/74 94 Room Air Laboratory Results 03/22/22 05:33 03/22/22 05:33 (1) Pulmonary emboli Acute cor pulmonale presence: without acute cor pulmonale Chronicity: acute Pulmonary embolism type: saddle Qualified Code(s): I26.92 - Saddle embolus of pulmonary artery without acute cor pulmonale (2) Fall Encounter type: initial encounter Qualified Code(s): W19.XXXA - Unspecified fall, initial encounter
[2022-03-22] MEDS: SENNA 8.6 MG TAB PO SCH (13:42)
--- NOTE | 2022-03-22 16:17 | Hospitalist Progress Note ---
Date of Service March 22, 2022 Assessment & Plan (1) Saddle pulmonary embolus: Plan: Acute Saddle pulmonary embolism Acute DVT of Left LE Hx of COVID infection in Jul was vaccinated in 2020 x 2 doses --CT Chest:Extensive bilateral pulmonary emboli including a saddle embolus within the main pulmonary arteries. No evidence for right-sided heart strain at this time. Acute left anterior third through fifth rib fractures. No pneumothorax. Additional subacute to chronic fractures within the chest and abdomen as described above. Cirrhotic liver with splenomegaly and a large amount of ascites. This has slightly progressed. Moderate to severe body wall edema again noted. Mildly enlarged anterior diaphragmatic and periportal lymph nodes remain unchanged. --ECHO: Aortic valve sclerosis mild, without significant aortic valvular sten osis. Left ventricle cavity is small. Moderate concentric LVH. Left ventricle wall motion is normal. Left ventricle is hyperdynamic. EF greater than 70%. Neck: Sign present with hypokinesis of the right ventricular apex with sparing of the basilar structures and mild apical dilatation consistent with acute pulmonary embolus. Trace tricuspid insufficiency is present --Venous Doppler:Acute appearing occlusive thrombus in the left lower extremity superficial femoral and popliteal veins. Soft tissue edema in the bilateral calf. No definite thrombus of the calf vessels despite limited evaluation. If any clinical deterioration, then tPA will be pursued Appreciate pulmonology input Supplemental oxygen as needed Continue IV Heparin >>Transitioned to Eliquis Continue Eliquis Nocturnal Hypoxia Likely ANEL/OHS Nocturnal Oximetry completed May also need 2 step prior to discharge Will need outpatient sleep study (2) Hepatic cirrhosis: Plan: - Nonalcoholic, hepatitis panel was conducted 01/27/2022 as reviewed in outpatient epic and is negative for hep A, B, C - MELD score 15 today, previously 13 - Scheduled with Dr. Mace as outpatient with hepatology on 05/05/22: In end of December pt was placed on lasix 20 mg daily and spironolactone 50 mg daily, lasix was increased to 40 mg daily on 02/11, now she is up to lasix 40 mg daily and spironolactone 100 mg daily. -Volume overload status --S/P Paracentesis:aspiration of 3 liters of ascites, No SBP --Continue diuretics as per Nephrology --Monitor volume status --Appreciate GI input --Fluid restriction, Low Na diet --Needs follow up with GI upon discharge Constipation Started on bowel regimen Encourage to ambulate (3) Diabetes: Plan: -Last A1c was 9.1 on 01/13/2022 -Holding metformin Continue Insulin (4) Asthma: Plan: -Continue albuterol sulfate (5) Rib fractures: Plan: Left-sided rib fractures Nondisplaced Secondary to fall Continue incentive spirometer Pain control (6) BLAIRE (acute kidney injury): Plan: Cr:1.78>1.5>1.3>1.19 Received Contrast In setting of volume overload Appreciate nephrology input Replace potassium for hypokalemia as needed Monitor renal function Continue IV diuresis as per Nephrology (7) Fall: Plan: Mechanical fall Fall precautions PT/OT Abnormal UA Ruled out UTI Urine Cx Mixed ashley Empirically received Rocephin for 3 days DVT Px: Eliquis CODE STATUS: Full code Disposition PT/OT prior to discharge (8) UTI (urinary tract infection): Admission and Anticipated Discharge Date Admission Date: March 17, 2022 Subjective Patient is seen and examined at bedside Reports abdominal distention and nausea Denies chest pain, dyspnea, dizziness Renal function stable KUB showed no obstruction Review of Systems Review of Systems: All systems reviewed & are unremarkable except as noted in Subjective Physical Exam Physical Exam: Physical Exam: Vitals signs as noted above General Appearance:Obese, No apparent distress Head: normocephalic, Atraumatic Eyes: normal inspection, EOMI Neck: supple, Trachea midline Respiratory/Chest: Decreased breath sounds, CTA, No accessory muscle use Cardiovascular: S1, S2, No murmur Abdomen/GI:Soft, abd distended, Non tender, Bowel sounds present Extremities/Musculoskeletal:normal inspection, +3 B/L LE edema Neurologic/Psych:AAOX3, grossly no focal neurological deficits Skin: normal color, warm Results & Data Results & Data ([facility]) Vital Signs (Past 12 Hours) Vital Signs Temp Pulse Pulse Resp BP Pulse Ox O2 Del Method 03/22/22 15:39 101 H 03/22/22 14:59 36.9 C 99 H 17 128/84 94 Room Air 03/22/22 10:57 36.6 C 100 H 16 134/83 95 Room Air 03/22/22 08:00 103 H 03/22/22 08:00 Room Air 03/22/22 07:00 36.9 C 102 H 16 127/76 94 Room Air Laboratory Results Short CBC 03/22/22 Range/Units 05:33 WBC 6.71 (4.8-10.8) K/ul Hgb 10.2 L (12.0-16.0) g/dl Hct 30.8 L (34.1-44.9) % Plt Count 128 L (130-400) K/uL BMP 03/22/22 05:33 Sodium 134 L Potassium 4.4 Chloride 96 L Carbon Dioxide 30 BUN 29 H Creatinine 1.19 Glucose 140 H Calcium 9.4
[2022-03-23 07:04] LABS: BUN Creatinine Ratio 26.1 (10-20); Calcium 9.4 mg/dl (8.5-10.1); Creatinine Clr Calc Pharmacy 67.8 ml/min; Est GFR (African American) 60.3 ml/min; Magnesium 1.8 mg/dl (1.7-2.4); Potassium 4.7 mmol/L (3.5-5.1)
--- NOTE | 2022-03-23 07:57 | Nephrology Progress Note ---
Date of Service March 23, 2022 Assessment & Plan (1) BLAIRE (acute kidney injury): Plan: 61-year-old female admitted to the hospital after she fell from her bed and was found to have left sided rib fracture as well as bilateral significant pulmonary embolism.Nephrology consulted for acute renal failure in a patient with liver cirrhosis with newly diagnosed bilateral pulmonary emboli. Baseline creatinine 1.1. -Given that the patient has liver disease with cirrhosis, she is always at high risk for having acute renal failure w/ the slightest hemodynamic compromise.She also has massive edema, which is hard to interpret given that she has background liver cirrhosis,and now also has bilateral pulmonary embolism with deep venous thrombosis making the edema worse. She also received IV contrast , so there is significant high risk of having major worsening in her kidney function - Renal function has improved and her SCr is almost normal, UOP continues to be good and she is comfortable , However she still has significant bilateral depend ent and perifpheral edema - Continue on 80 mg q8 Iv Lasix for now >> she has had only 48 hrs of > 1L negative values and no standing weights -This will need converting to Oral furosemide + wing, once volume status improves and she is ready to be discharged. -cont 1.2L FR and >2 gm Na -needs daily STANDING weight when able > not likely yet DISCHARGE RECOMMENDATIONS (when ready; pls revisit final neph note for final neph recs) -hospital d/c appt w/ in nephrology at clinic nearest her home in 2- 3 weeks time with BMP (2) Hepatic cirrhosis: Plan: US paracentesis w cell ct and fluid analysis without evidence of SBP and SAAG >1.1 -As per Gastro recs (3) Pulmonary emboli: (4) Fall: Admission and Anticipated Discharge Date Admission Date: March 17, 2022 Subjective c/o constipation; no sob, still very weak > can't stand on own; ongoing edema Review of Systems Review of Systems: All systems reviewed & are unremarkable except as noted in Subjective Physical Exam Constitutional: well developed and well nourished Eyes: EOM intact bilaterally ENMT: Ears: no external ear abnormality Nose: no external nose abnormality Mouth: + dry oral mucous membranes Neck: no nuchal rigidity Respiratory: normal respiratory effort (on 02NC) Auscultation: + diminished lung sounds and + crackles (few bibasilar) Cardiovascular: Rate/Rhythm: regular rhythm and + tachycardic Extremities: + edema (2+ dependent) Gastrointestinal (Abdomen): Inspection/Auscultation: normal bowel sounds Percussion/Palpation: + ascites and + abdomen firm; abdomen nontender and no guarding Musculoskeletal: Extremities: + abnormal strength Skin: no rashes, warm and dry Neurologic: barroso, fluent speech, no tremor Psychiatric: Orientation: oriented x 3 Genitourinary: grewal w/ ample urine Results & Data ([facility]) Vital Signs (Past 12 Hours) Vital Signs Temp Pulse Pulse Resp BP Pulse Ox O2 Del Method 03/23/22 07:26 37 C 105 H 18 143/83 H 99 Nasal Cannula 03/23/22 03:38 37.1 C 105 H 20 139/85 97 Nasal Cannula 03/22/22 22:11 100 H 03/22/22 23:00 36.8 C 99 H 18 125/87 98 Nasal Cannula 03/22/22 20:00 Nasal Cannula O2 Flow Rate 03/23/22 07:26 1 03/23/22 03:38 2.0 03/22/22 22:11 03/22/22 23:00 03/22/22 20:00 2 Laboratory Results 03/22/22 05:33 03/23/22 06:04 (1) Pulmonary emboli Acute cor pulmonale presence: without acute cor pulmonale Chronicity: acute Pulmonary embolism type: saddle Qualified Code(s): I26.92 - Saddle embolus of pulmonary artery without acute cor pulmonale (2) Fall Encounter type: initial encounter Qualified Code(s): W19.XXXA - Unspecified fall, initial encounter
[2022-03-23] MEDS: POTASSIUM CHLORIDE CRTAB 20 MEQ TABCR PO SCH ×2 (08:21→20:18)
[2022-03-23] MEDS: MAGNESIUM CHLORIDE W/CALCIUM 64MG DELAYED REL TAB PO SCH ×2 (08:21→20:19)
[2022-03-23] MEDS: SENNA 8.6 MG TAB PO SCH (08:21)
[2022-03-23] MEDS: POLYETHYLENE (MIRALAX) 17 GM PACK PO SCH (08:21)
[2022-03-23] MEDS: DOCUSATE SODIUM 100 MG CAP PO SCH ×2 (08:21→20:19)
[2022-03-23] MEDS: CHOLECALCIFEROL 1,000 UNITS 25 MCG TAB PO SCH (08:21)
[2022-03-23] MEDS: LIDOCAINE 5% 1 PATCH TD SCH (08:22)
[2022-03-23] MEDS: FUROSEMIDE 40 MG/4 ML VIAL IV SCH ×3 (08:22→17:31)
[2022-03-23] MEDS: APIXABAN 5 MG TABLET PO SCH ×2 (08:22→20:18)
[2022-03-23] MEDS: INSULIN ASPART PER UNIT SC SCH ×4 (08:28→20:45)
[2022-03-23] MEDS: LANTUS PER UNIT CHARGE SQ SCH (08:28)
[2022-03-23] MEDS ORDERED: bisacodyL 10 MG SUPP PR PRN (12:26)
[2022-03-23] MEDS ORDERED: bisacodyL 10 MG SUPP PR ONE (12:27)
[2022-03-23] MEDS: oxyCODONE/ACETAMINOPHEN 5mg/325mg TAB PO PRN (12:55)
--- NOTE | 2022-03-23 17:19 | Communication Note ---
Date of Service: March 23, 2022 Pt with known JOYCE cirrhosis, new ascites/edema. Pt seen briefly, by myself and Dr. Palumbo this morning while PT in room. Pt w ascites, peripheral edema, but able to get up out of bed. No confusion. No acute distress. 3L paracentesis on 03/17/22 no SBP (125 WBCs 21% neutrophils) SAAG 3.7 - 2.0 = 1.7 high saag consistent with portal HTN from known cirrhosis. Kidney function improved: 1.6 on arrival to 1.19 today. Current diuretic s 80mg IV TIC. Consider trial of Furosemide 40/spironolactone 100mg daily prior to discharge w consideration for continued after discharge, but will defer to primary services. Continue OP GI f/u for cirrhosis with Dr. Mace. will plan for OP EGD to r/o new EV. GI will sign off. Please notify us of new/worsening GI issues.
--- NOTE | 2022-03-23 18:33 | Hospitalist Progress Note ---
Date of Service March 23, 2022 Assessment & Plan (1) Saddle pulmonary embolus: Plan: Acute Saddle pulmonary embolism Acute DVT of Left LE Hx of COVID infection in Jul was vaccinated in 2020 x 2 doses --CT Chest:Extensive bilateral pulmonary emboli including a saddle embolus within the main pulmonary arteries. No evidence for right-sided heart strain at this time. Acute left anterior third through fifth rib fractures. No pneumothorax. Additional subacute to chronic fractures within the chest and abdomen as described above. Cirrhotic liver with splenomegaly and a large amount of ascites. This has slightly progressed. Moderate to severe body wall edema again noted. Mildly enlarged anterior diaphragmatic and periportal lymph nodes remain unchanged. --ECHO: Aortic valve sclerosis mild, without significant aortic valvular sten osis. Left ventricle cavity is small. Moderate concentric LVH. Left ventricle wall motion is normal. Left ventricle is hyperdynamic. EF greater than 70%. Neck: Sign present with hypokinesis of the right ventricular apex with sparing of the basilar structures and mild apical dilatation consistent with acute pulmonary embolus. Trace tricuspid insufficiency is present --Venous Doppler:Acute appearing occlusive thrombus in the left lower extremity superficial femoral and popliteal veins. Soft tissue edema in the bilateral calf. No definite thrombus of the calf vessels despite limited evaluation. If any clinical deterioration, then tPA will be pursued Appreciate pulmonology input Supplemental oxygen as needed Continue IV Heparin >>Transitioned to Eliquis Continue Eliquis Nocturnal Hypoxia Likely ANEL/OHS Nocturnal Oximetry completed May also need 2 step prior to discharge Will need outpatient sleep study (2) Hepatic cirrhosis: Plan: - Nonalcoholic, hepatitis panel was conducted 01/27/2022 as reviewed in outpatient epic and is negative for hep A, B, C - MELD score 15 today, previously 13 - Scheduled with Dr. Mace as outpatient with hepatology on 05/05/22: In end of December pt was placed on lasix 20 mg daily and spironolactone 50 mg daily, lasix was increased to 40 mg daily on 02/11, now she is up to lasix 40 mg daily and spironolactone 100 mg daily. -Volume overload status --S/P Paracentesis:aspiration of 3 liters of ascites, No SBP --Continue diuretics as per Nephrology --Monitor volume status --Appreciate GI input --Fluid restriction, Low Na diet --Needs follow up with GI upon discharge Constipation Continue bowel regimen Encourage to ambulate KUB tomorrow to re-assess (3) Diabetes: Plan: -Last A1c was 9.1 on 01/13/2022 -Holding metformin Continue Insulin (4) Asthma: Plan: -Continue albuterol sulfate (5) Rib fractures: Plan: Left-sided rib fractures Nondisplaced Secondary to fall Continue incentive spirometer Pain control (6) BLAIRE (acute kidney injury): Plan: Cr:1.78>1.5>1.3>1.1 Received Contrast In setting of volume overload Appreciate nephrology input Replace potassium for hypokalemia as needed Monitor renal function Continue IV diuresis as per Nephrology (7) Fall: Plan: Mechanical fall Fall precautions PT/OT Abnormal UA Ruled out UTI Urine Cx Mixed ashley Empirically received Rocephin for 3 days DVT Px: Eliquis CODE STATUS: Full code Disposition PT/OT prior to discharge (8) UTI (urinary tract infection): Admission and Anticipated Discharge Date Admission Date: March 17, 2022 Subjective Patient is seen and examined at bedside Reported constipation this morning but later had BM as per RN Also reported nausea this morning Renal function stable Denies chest pain, dyspnea, dizziness No other complaints Review of Systems Review of Systems: All systems reviewed & are unremarkable except as noted in Subjective Physical Exam Physical Exam: Physical Exam: Vitals signs as noted above General Appearance:Obese, No apparent distress Head: normocephalic, Atraumatic Eyes: normal inspection, EOMI Neck: supple, Trachea midline Respiratory/Chest: Decreased breath sounds, CTA, No accessory muscle use Cardiovascular: S1, S2, No murmur Abdomen/GI:Soft, abd distended, Non tender, Bowel sounds present Extremities/Musculoskeletal:normal inspection, +3 B/L LE edema Neurologic/Psych:AAOX3, grossly no focal neurological deficits Skin: normal color, warm Results & Data Results & Data ([facility]) Vital Signs (Past 12 Hours) Vital Signs Temp Pulse Pulse Resp BP Pulse Ox O2 Del Method 03/23/22 15:24 36.8 C 117 H 20 137/92 92 Room Air 03/23/22 11:23 37 C 118 H 20 139/96 94 Room Air 03/23/22 08:00 105 H 03/23/22 08:00 Room Air 03/23/22 07:26 37 C 105 H 18 143/83 H 99 Nasal Cannula O2 Flow Rate 03/23/22 15:24 03/23/22 11:23 03/23/22 08:00 03/23/22 08:00 03/23/22 07:26 1 Laboratory Results [facility] 03/23/22 06:04 Sodium 136 Potassium 4.7 Chloride 97 L Carbon Dioxide 29 BUN 30 H Creatinine 1.15 Glucose 129 H Calcium 9.4
[2022-03-23] MEDS: NYSTATIN POWDER 15GM BTL EXT PRN (20:18)
[2022-03-24 06:03] LABS: Hematocrit (blood only) 30.1 % (34.1-44.9); Mean Corpuscular Hemoglobin 29.4 pg (25.0-34.0); Mean Corpuscular Hgb Conc 33.2 g/dL (32.0-36.0); Mean Corpuscular Volume 88.5 fL (80.0-100.0); Mean Platelet Volume 9.5 fL (9.4-12.3); Platelet Count 184 K/uL (130-400); RDW Coefficient of Variation 15.5 % (11.5-14.5); RDW Standard Deviation 50.1 fL (36.4-46.3); White Blood Count 7.51 K/ul (4.8-10.8)
[2022-03-24 06:24] LABS: Calcium 9.2 mg/dl (8.5-10.1); Creatinine Clr Calc Pharmacy 58.9 ml/min; Est GFR (African American) 51.5 ml/min; Est GFR (Non-African American) 44.5 ml/min; Potassium 4.7 mmol/L (3.5-5.1)
[2022-03-24] MEDS: INSULIN ASPART PER UNIT SC SCH ×4 (08:06→20:20)
[2022-03-24] MEDS: LANTUS PER UNIT CHARGE SQ SCH (08:07)
[2022-03-24] MEDS: POLYETHYLENE (MIRALAX) 17 GM PACK PO SCH (08:09)
[2022-03-24] MEDS: FUROSEMIDE 40 MG/4 ML VIAL IV SCH ×3 (08:09→17:16)
[2022-03-24] MEDS: DOCUSATE SODIUM 100 MG CAP PO SCH ×2 (08:10→20:14)
[2022-03-24] MEDS: LIDOCAINE 5% 1 PATCH TD SCH (08:10)
[2022-03-24] MEDS: MAGNESIUM CHLORIDE W/CALCIUM 64MG DELAYED REL TAB PO SCH ×2 (08:10→20:14)
[2022-03-24] MEDS: CHOLECALCIFEROL 1,000 UNITS 25 MCG TAB PO SCH (08:10)
[2022-03-24] MEDS: POTASSIUM CHLORIDE CRTAB 20 MEQ TABCR PO SCH ×2 (08:10→20:14)
[2022-03-24] MEDS: SENNA 8.6 MG TAB PO SCH (08:10)
[2022-03-24] MEDS: APIXABAN 5 MG TABLET PO SCH ×2 (08:10→20:13)
[2022-03-24] MEDS ORDERED: DOCUSATE SODIUM 100 MG CAP PO PRN (10:45)
[2022-03-24] MEDS ORDERED: Nursing to Pharmacy Communication SCH (10:45)
[2022-03-24] MEDS ORDERED: SENNA 8.6 MG TAB PO PRN (11:00)
[2022-03-24] MEDS ORDERED: POLYETHYLENE (MIRALAX) 17 GM PACK PO PRN (11:00)
--- NOTE | 2022-03-24 13:30 | Nephrology Progress Note ---
Date of Service March 24, 2022 Assessment & Plan (1) BLAIRE (acute kidney injury): Plan: 61-year-old female admitted to the hospital after she fell from her bed and was found to have left sided rib fracture as well as bilateral significant pulmonary embolism.Nephrology consulted for acute renal failure in a patient with liver cirrhosis with newly diagnosed bilateral pulmonary emboli. Baseline creatinine 1.1. -Given that the patient has liver disease with cirrhosis, she is always at high risk for having acute renal failure w/ the slightest hemodynamic compromise.She also has massive edema, which is hard to interpret given that she has background liver cirrhosis,and now also has bilateral pulmonary embolism with deep venous thrombosis making the edema worse. She also received IV contrast , so there is significant high risk of having major worsening in her kidney function - Renal function has improved and her SCr is almost normal, UOP continues to be good and she is comfortable , However she still has significant bilateral depend ent and peripheral edema and worsening ascites - Continue on 80 mg q8 Iv Lasix for now >> cont strict I/O -primary service to eval if/when repeat paracentesis indicated -lasix will need converting to Oral furosemide + wing, once volume status improves and she is ready to be discharged but for now still needs significant diuresis , hence IV -cont 1.2L FR and >2 gm Na -needs daily STANDING weight when able > not likely yet DISCHARGE RECOMMENDATIONS (when ready; pls revisit final neph note for final neph recs) -hospital d/c appt w/ in nephrology at clinic nearest her home in 2- 3 weeks time with BMP (2) Hepatic cirrhosis: Plan: US paracentesis w cell ct and fluid analysis without evidence of SBP and SAAG >1.1 -As per Gastro recs Admission and Anticipated Discharge Date Admission Date: March 17, 2022 Subjective no interval events. moving bowels now. no sob, no uncontrolled pain; edema minimally changed, abdomen more distended. Review of Systems Review of Systems: All systems reviewed & are unremarkable except as noted in Subjective Physical Exam Constitutional: well developed, well nourished and cooperative Eyes: EOM intact bilaterally ENMT: Ears: no external ear abnormality Nose: no external nose abnormality Mouth: + dry oral mucous membranes Neck: no nuchal rigidity Respiratory: normal respiratory effort (on 02NC) Auscultation: + diminished lung sounds Cardiovascular: Rate/Rhythm: regular rhythm and + tachycardic Extremities: + edema (3-4+ dependent) Gastrointestinal (Abdomen): Inspection/Auscultation: + abdomen distended and normal bowel sounds Percussion/Palpation: + ascites and + abdomen firm; abdomen nontender and no guarding Musculoskeletal: Extremities: + abnormal strength Skin: no rashes, warm and dry Neurologic: barroso, fluent speech Psychiatric: Orientation: oriented x 3 Genitourinary: grewal w/ ample light colored urine Results & Data ([facility]) Vital Signs (Past 12 Hours) Vital Signs Temp Pulse Pulse Resp BP Pulse Ox O2 Del Method 03/24/22 08:00 100 H 03/24/22 08:00 Room Air 03/24/22 08:00 36.8 C 106 H 14 149/93 H 98 Nasal Cannula 03/24/22 03:48 37.0 C 102 H 14 131/73 96 Room Air 03/24/22 03:17 102 H O2 Flow Rate 03/24/22 08:00 03/24/22 08:00 03/24/22 08:00 1 03/24/22 03:48 03/24/22 03:17 Laboratory Results 03/24/22 05:34 03/24/22 05:34
--- NOTE | 2022-03-24 13:56 | XRay Report ---
KUB CLINICAL HISTORY: Constipation. FINDINGS: 4 AP, portable, supine abdominal radiographs are compared to study dated 03/22/2022 and moises elated with abdominal CT dated 03/17/2022. The examination is degraded by large body habitus. There is no radiographic evidence of bowel obstruction. Moderate fecal retention is noted in the right colon. There is gaseous distention of the colon. Cholecystectomy clips are seen in the right upper quadrant . Pills are noted in the stomach. No evidence of intraperitoneal free air is seen on these supine thu ges. There is likely abdominal ascites. The skeletal structures are osteopenic and appear intact. The re is lumbosacral spondylosis. IMPRESSION: Moderate colonic fecal retention. Electronically signed by: Felipe Aguirre M.D. 03/24/2022 1:55 PM
--- NOTE | 2022-03-24 16:37 | Hospitalist Progress Note ---
Date of Service March 24, 2022 Assessment & Plan (1) Saddle pulmonary embolus: Plan: Acute Saddle pulmonary embolism Acute DVT of Left LE Hx of COVID infection in Jul was vaccinated in 2020 x 2 doses --CT Chest:Extensive bilateral pulmonary emboli including a saddle embolus within the main pulmonary arteries. No evidence for right-sided heart strain at this time. Acute left anterior third through fifth rib fractures. No pneumothorax. Additional subacute to chronic fractures within the chest and abdomen as described above. Cirrhotic liver with splenomegaly and a large amount of ascites. This has slightly progressed. Moderate to severe body wall edema again noted. Mildly enlarged anterior diaphragmatic and periportal lymph nodes remain unchanged. --ECHO: Aortic valve sclerosis mild, without significant aortic valvular sten osis. Left ventricle cavity is small. Moderate concentric LVH. Left ventricle wall motion is normal. Left ventricle is hyperdynamic. EF greater than 70%. Neck: Sign present with hypokinesis of the right ventricular apex with sparing of the basilar structures and mild apical dilatation consistent with acute pulmonary embolus. Trace tricuspid insufficiency is present --Venous Doppler:Acute appearing occlusive thrombus in the left lower extremity superficial femoral and popliteal veins. Soft tissue edema in the bilateral calf. No definite thrombus of the calf vessels despite limited evaluation. If any clinical deterioration, then tPA will be pursued Appreciate pulmonology input Supplemental oxygen as needed Continue IV Heparin >>Transitioned to Eliquis Continue Eliquis Nocturnal Hypoxia Likely ANEL/OHS Nocturnal Oximetry completed May also need 2 step prior to discharge Will need outpatient sleep study (2) Hepatic cirrhosis: Plan: - Nonalcoholic, hepatitis panel was conducted 01/27/2022 as reviewed in outpatient epic and is negative for hep A, B, C - MELD score 15 today, previously 13 - Scheduled with Dr. Mace as outpatient with hepatology on 05/05/22: In end of December pt was placed on lasix 20 mg daily and spironolactone 50 mg daily, lasix was increased to 40 mg daily on 02/11, now she is up to lasix 40 mg daily and spironolactone 100 mg daily. -Volume overload status --S/P Paracentesis:aspiration of 3 liters of ascites, No SBP --Continue diuretics as per Nephrology --Monitor volume status --Appreciate GI input --Fluid restriction, Low Na diet --Needs follow up with GI upon discharge We will repeat ultrasound for ascites tomorrow given persistent abdominal distention Constipation Had bowel movements but repeat KUB still showed moderate stool Continue bowel regimen Encourage to ambulate (3) Diabetes: Plan: -Last A1c was 9.1 on 01/13/2022 -Holding metformin Continue Insulin (4) Asthma: Plan: -Continue albuterol sulfate (5) Rib fractures: Plan: Left-sided rib fractures Nondisplaced Secondary to fall Continue incentive spirometer Pain control (6) BLAIRE (acute kidney injury): Plan: Cr:1.78>1.5>1.3 Received Contrast In setting of volume overload Appreciate nephrology input Replace potassium for hypokalemia as needed Monitor renal function Continue IV diuresis as per Nephrology Needs follow-up with nephrology upon discharge (7) Fall: Plan: Mechanical fall Fall precautions PT/OT Abnormal UA Ruled out UTI Urine Cx Mixed ashley Empirically received Rocephin for 3 days DVT Px: Eliquis CODE STATUS: Full code Disposition Rehab as able (8) UTI (urinary tract infection): Admission and Anticipated Discharge Date Admission Date: March 17, 2022 Subjective Patient is seen and examined at bedside Reports having bowel movement but has persistent abdominal pain Also has significant leg edema Nausea resolved Denies any abdominal pain Also denies chest pain, dyspnea, dizziness Discussed with nephrology today Review of Systems Review of Systems: All systems reviewed & are unremarkable except as noted in Subjective Physical Exam Physical Exam: Physical Exam: Vitals signs as noted above General Appearance:Obese, No apparent distress Head: normocephalic, Atraumatic Eyes: normal inspection, EOMI Neck: supple, Trachea midline Respiratory/Chest: Decreased breath sounds, CTA, No accessory muscle use Cardiovascular: S1, S2, No murmur Abdomen/GI:Soft, abd distended, Non tender, Bowel sounds present Extremities/Musculoskeletal:normal inspection, +3 B/L LE edema Neurologic/Psych:AAOX3, grossly no focal neurological deficits Skin: normal color, warm Results & Data Results & Data ([facility]) Vital Signs (Past 12 Hours) Vital Signs Temp Pulse Pulse Resp BP Pulse Ox O2 Del Method 03/24/22 15:46 36.6 C 104 H 19 135/87 94 Room Air 03/24/22 08:00 100 H 03/24/22 08:00 Room Air 03/24/22 08:00 36.8 C 106 H 14 149/93 H 98 Nasal Cannula O2 Flow Rate 03/24/22 15:46 03/24/22 08:00 03/24/22 08:00 03/24/22 08:00 1 Laboratory Results Short CBC 03/24/22 Range/Units 05:34 WBC 7.51 (4.8-10.8) K/ul Hgb 10.0 L (12.0-16.0) g/dl Hct 30.1 L (34.1-44.9) % Plt Count 184 (130-400) K/uL BMP 03/24/22 05:34 Sodium 134 L Potassium 4.7 Chloride 96 L Carbon Dioxide 29 BUN 34 H Creatinine 1.31 H Glucose 132 H Calcium 9.2
[2022-03-24] MEDS: NYSTATIN POWDER 15GM BTL EXT PRN (20:13)
[2022-03-24] MEDS: oxyCODONE/ACETAMINOPHEN 5mg/325mg TAB PO PRN (20:29)
[2022-03-25 06:52] LABS: BUN Creatinine Ratio 25.2 (10-20); Calcium 9.6 mg/dl (8.5-10.1); Creatinine Clr Calc Pharmacy 51.1 ml/min; Est GFR (African American) 43.4 ml/min; Est GFR (Non-African American) 37.4 ml/min; Potassium 5.1 mmol/L (3.5-5.1)
[2022-03-25] MEDS: POTASSIUM CHLORIDE CRTAB 20 MEQ TABCR PO SCH (07:11)
[2022-03-25] MEDS: APIXABAN 5 MG TABLET PO SCH (07:50)
[2022-03-25] MEDS: FUROSEMIDE 40 MG/4 ML VIAL IV SCH ×2 (07:50→13:33)
[2022-03-25] MEDS: NYSTATIN POWDER 15GM BTL EXT PRN (07:51)
[2022-03-25] MEDS: CHOLECALCIFEROL 1,000 UNITS 25 MCG TAB PO SCH (07:51)
[2022-03-25] MEDS: MAGNESIUM CHLORIDE W/CALCIUM 64MG DELAYED REL TAB PO SCH ×2 (07:51→20:41)
[2022-03-25] MEDS: DOCUSATE SODIUM 100 MG CAP PO SCH ×2 (07:51→20:41)
[2022-03-25] MEDS: INSULIN ASPART PER UNIT SC SCH ×4 (09:36→20:40)
[2022-03-25] MEDS: LANTUS PER UNIT CHARGE SQ SCH (09:36)
--- NOTE | 2022-03-25 10:38 | XRay Report ---
XR chest 1V portable CLINICAL HISTORY: chest pain TECHNIQUE: Single frontal radiograph of the chest was obtained. Comparison: Comparison is made to chest radiograph 03/18/[address] chest 03/17/2022 FINDINGS: No lines and tubes are seen. The cardiomediastinal silhouette is normal. Lungs are underinflated but clear. No evidence of pleural effusion or pneumothorax. Noted rib fractures are not well seen radiogr aphically. IMPRESSION: Lungs are underinflated however no acute abnormalities are seen. ACT 112: Negative or not required by law. Electronically signed by: Mihai Motley M.D. 03/25/2022 10:37 AM
[2022-03-25] MEDS: oxyCODONE/ACETAMINOPHEN 5mg/325mg TAB PO PRN ×2 (11:53→20:48)
--- NOTE | 2022-03-25 11:53 | Ultrasound Report ---
US abdomen ltd ascites CLINICAL HISTORY: Ascites TECHNIQUE: Real-time grayscale sonographic images of the abdomen were obtained. Comparison: Comparison is made to paracentesis 03/20/[address] abdomen pelvis 03/17/2022 FINDINGS/IMPRESSION: Moderate ascites is seen in all 4 quadrants. ACT 112: Negative or not required by law. Electronically signed by: Mihai Motley M.D. 03/25/2022 11:52 AM
[2022-03-25] MEDS ORDERED: ALBUMIN 25% 12.5 GM/50 ML VIAL IV ONE (12:41)
[2022-03-25] MEDS ORDERED: Heparin IV Adult Wt-Based Standard *NO* Bolus Protocol IV ONE (13:51)
[2022-03-25] MEDS: HEPARIN SODIUM/DEXTROSE 25,000 UNITS/500 ML BAG IV SCH (14:22)
--- NOTE | 2022-03-25 16:26 | Hospitalist Progress Note ---
Date of Service March 25, 2022 Assessment & Plan (1) Saddle pulmonary embolus: Plan: Acute Saddle pulmonary embolism Acute DVT of Left LE Hx of COVID infection in Jul was vaccinated in 2020 x 2 doses --CT Chest:Extensive bilateral pulmonary emboli including a saddle embolus within the main pulmonary arteries. No evidence for right-sided heart strain at this time. Acute left anterior third through fifth rib fractures. No pneumothorax. Additional subacute to chronic fractures within the chest and abdomen as described above. Cirrhotic liver with splenomegaly and a large amount of ascites. This has slightly progressed. Moderate to severe body wall edema again noted. Mildly enlarged anterior diaphragmatic and periportal lymph nodes remain unchanged. --ECHO: Aortic valve sclerosis mild, without significant aortic valvular sten osis. Left ventricle cavity is small. Moderate concentric LVH. Left ventricle wall motion is normal. Left ventricle is hyperdynamic. EF greater than 70%. Neck: Sign present with hypokinesis of the right ventricular apex with sparing of the basilar structures and mild apical dilatation consistent with acute pulmonary embolus. Trace tricuspid insufficiency is present --Venous Doppler:Acute appearing occlusive thrombus in the left lower extremity superficial femoral and popliteal veins. Soft tissue edema in the bilateral calf. No definite thrombus of the calf vessels despite limited evaluation. If any clinical deterioration, then tPA will be pursued Appreciate pulmonology input Supplemental oxygen as needed Continue IV Heparin >>Transitioned to Eliquis Hold Eliquis today as planned for repeat paracentesis tomorrow IV heparin restarted while Eliquis on hold Nocturnal Hypoxia Likely ANEL/OHS Nocturnal Oximetry completed May also need 2 step prior to discharge Will need outpatient sleep study (2) Hepatic cirrhosis: Plan: - Nonalcoholic, hepatitis panel was conducted 01/27/2022 as reviewed in outpatient epic and is negative for hep A, B, C - MELD score 15 today, previously 13 - Scheduled with Dr. Mace as outpatient with hepatology on 05/05/22: In end of December pt was placed on lasix 20 mg daily and spironolactone 50 mg daily, lasix was increased to 40 mg daily on 02/11, now she is up to lasix 40 mg daily and spironolactone 100 mg daily. -Volume overload status --S/P Paracentesis:aspiration of 3 liters of ascites, No SBP --Continue diuretics as per Nephrology --Monitor volume status --Appreciate GI input --Fluid restriction, Low Na diet --Needs follow up with GI upon discharge Repeat abd USD: Moderate ascites is seen in all 4 quadrants. We will plan to have paracentesis done tomorrow as patient already had a dose of Eliquis this morning Discussed with radiologist agrees to do a paracentesis tomorrow Constipation Had bowel movements but repeat KUB still showed moderate stool Continue bowel regimen Encourage to ambulate (3) Diabetes: Plan: -Last A1c was 9.1 on 01/13/2022 -Holding metformin Continue Insulin (4) Asthma: Plan: -Continue albuterol sulfate (5) Rib fractures: Plan: Left-sided rib fractures Nondisplaced Secondary to fall Continue incentive spirometer Pain control (6) BLAIRE (acute kidney injury): Plan: BLAIRE Cr:1.78>1.5>1.3>1.5 Received Contrast In setting of volume overload Hyperkalemia Appreciate nephrology input Hold potassium supplements Monitor renal function Hold further IV diuresis today (Received 2 doses today) Needs follow-up with nephrology upon discharge (7) Fall: Plan: Mechanical fall Fall precautions PT/OT Abnormal UA Ruled out UTI Urine Cx Mixed ashley Empirically received Rocephin for 3 days DVT Px: Eliquis--Held IV heparin CODE STATUS: Full code Disposition Rehab as able (8) UTI (urinary tract infection): Admission and Anticipated Discharge Date Admission Date: March 17, 2022 Subjective Patient is seen and examined at bedside States having abdominal discomfort radiating to her right upper chest this morning Also reports having some pleuritic pain Requested GI to reevaluate EKG showed no signs of acute ischemia Patient denies any shortness of breath, dizziness, nausea Discussed with nephrology today Review of Systems Review of Systems: All systems reviewed & are unremarkable except as noted in Subjective Physical Exam Physical Exam: Physical Exam: Vitals signs as noted above General Appearance:Obese, No apparent distress Head: normocephalic, Atraumatic Eyes: normal inspection, EOMI Neck: supple, Trachea midline Respiratory/Chest: Decreased breath sounds, CTA, No accessory muscle use Cardiovascular: S1, S2, No murmur Abdomen/GI:Soft, abd distended, Non tender, Bowel sounds present Extremities/Musculoskeletal:normal inspection, +3 B/L LE edema Neurologic/Psych:AAOX3, grossly no focal neurological deficits Skin: normal color, warm Results & Data Results & Data ([facility]) Vital Signs (Past 12 Hours) Vital Signs Temp Pulse Pulse Resp BP Pulse Ox O2 Del Method 03/25/22 14:18 90 03/25/22 10:24 103 H 22 154/98 H 94 Room Air 03/25/22 08:00 103 H 03/25/22 08:00 Room Air 03/25/22 08:33 36.9 C 108 H 20 147/93 H 94 Room Air Laboratory Results [facility] 03/25/22 05:28 Sodium 133 L Potassium 5.1 Chloride 95 L Carbon Dioxide 29 BUN 38 H Creatinine 1.51 H Glucose 133 H Calcium 9.6
--- NOTE | 2022-03-25 17:02 | Nephrology Progress Note ---
Date of Service March 25, 2022 Assessment & Plan (1) BLAIRE (acute kidney injury): Plan: 61-year-old female admitted to the hospital after she fell from her bed and was found to have left sided rib fracture as well as bilateral significant pulmonary embolism.Nephrology consulted for acute renal failure in a patient with liver cirrhosis with newly diagnosed bilateral pulmonary emboli. Baseline creatinine 1.1. -Given that the patient has liver disease with cirrhosis, she is always at high risk for having acute renal failure w/ the slightest hemodynamic compromise.She also has massive edema, which is hard to interpret given that she has background liver cirrhosis,and now also has bilateral pulmonary embolism with deep venous thrombosis making the edema worse. - Renal function had improved butnow worsening slowlyl, UOP does appear to be dropping. However she still has significant bilateral dependent and peripheral edema and worsening ascites. for paracentesis in AM ->>>cut back 80 mg q8 Iv Lasix for now >> only 2 doses today and then consider whether/when to resume tomorrow after paracentesis; may try other diuretics when resuming -cont strict I/O -lasix will need converting to Oral furosemide + wing, once volume status i mproves and she is ready to be discharged but for now still needs significant diuresis , hence IV -cont 1.2L FR and >2 gm Na -needs daily STANDING weight when able > not likely yet DISCHARGE RECOMMENDATIONS (when ready; pls revisit final neph note for final neph recs) -hospital d/c appt w/ in nephrology at clinic nearest her home in 2- 3 weeks time with BMP (2) Hepatic cirrhosis: Plan: US paracentesis w cell ct and fluid analysis without evidence of SBP and SAAG >1.1 -As per Gastro recs Admission and Anticipated Discharge Date Admission Date: March 17, 2022 Subjective had severe abdominal distension/bloat igor under R breast this afternoon; very uncomfortable; some ? of less responsive ness to lasix in terms of uop Review of Systems Review of Systems: All systems reviewed & are unremarkable except as noted in Subjective Physical Exam Constitutional: well developed, well nourished and cooperative Eyes: EOM intact bilaterally ENMT: Ears: no external ear abnormality Nose: no external nose abnormality Mouth: + dry oral mucous membranes Neck: no nuchal rigidity Respiratory: normal respiratory effort (on RA) Auscultation: + diminished lung sounds Cardiovascular: Rate/Rhythm: regular rhythm and + tachycardic Extremities: + edema (3-4+ dependent) Gastrointestinal (Abdomen): Inspection/Auscultation: + abdomen distended and normal bowel sounds Percussion/Palpation: + ascites and + abdomen firm; abdomen nontender and no guarding Musculoskeletal: Extremities: + abnormal strength Skin: no rashes, warm and dry Neurologic: barroso, fluent speech, no tremo Psychiatric: Orientation: oriented x 3 Results & Data ([facility]) Vital Signs (Past 12 Hours) Vital Signs Temp Pulse Pulse Resp BP Pulse Ox O2 Del Method 03/25/22 16:44 36.5 C 94 H 18 137/87 94 Room Air 03/25/22 14:18 90 03/25/22 10:24 103 H 22 154/98 H 94 Room Air 03/25/22 08:00 103 H 03/25/22 08:00 Room Air 03/25/22 08:33 36.9 C 108 H 20 147/93 H 94 Room Air Laboratory Results 03/24/22 05:34 03/25/22 05:28
--- NOTE | 2022-03-25 17:36 | Gastroenterology Progress Note ---
Date of Service March 25, 2022 Assessment & Plan (1) 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: Plan Diuretics per nephrology. Large volume paracentesis tomorrow with Alb 25gm before and after. Will check fluid culture verify no SBP. Low salt diet. Appreciate primary hospitalists management of PE/DVTs. Admission and Anticipated Discharge Date Admission Date: March 17, 2022 Supervising Physician Co-Signing Physician Notes Attg add: I interviewed and examined pt, reviewed chart and labs. Pt with worsening ascites -- will arrange for tap. Subjective 61 yr old female w DM-2, obesity, asthma, JOYCE cirrhosis w new ascites prompting this admission also w PE and LLE DVT as well as BLAIRE. Eliquis->Heparin. Planning for second large paracentesis tomorrow. No SBP on cell count or culture from prior paracentesis on 03/20. No GI bleeding. No confusion. Diuretics: furosemide 80mg TID - but held by nephrology today. Was on furosemide 20mg/spironolactone at home. She is awake, alert, uncomfortable with the large ascites but no significant abdominal pain. Hb stable at 10 (yesterday's value) Cr worsening 1.3 yesterday to 1.5 today. Neph following. Review of Systems Review of Systems: ROS: Gen: + weakness/fatigue, No fevers, Eyes: No eye redness, or pain, no recent vision changes Resp: No SOB, no cough Cardio: ++ edema; No palpitations/irregular beats, no chest pain GI: As per HPI : Denies pain on urination Skin: No jaundice, itching or new rashes Physical Exam Constitutional: WD/WN, vitals as above Eyes: PERRL, conjunctivae normal, anicteric sclerae ENMT: external ear and nose normal, oropharynx normal Neck: trachea midline, no thyromegaly Respiratory: normal respiratory effort, lungs clear to auscultation diinised in the bases bilaterally Cardiovascular: Rate/Rhythm: regular rate (90's) and regular rhythm 1+ pitting edema both legs Gastrointestinal (Abdomen): Inspection/Auscultation: + abdomen distended (ascites), normal bowel sounds and + abdominal edema (mild abd wall edema) Percussion/Palpation: abdomen soft and + ascites (large); abdomen nontender Skin: no rashes, warm and dry Neurologic: PERRL, EOMI, accommodation nl, no face palsy, no dysarthria no asterixes Psychiatric: A+Ox3, euthymic affect Lymphatic: no cervical or axillary lymphadenopathy Results & Data ([facility]) Vital Signs (Past 12 Hours) Vital Signs Temp Pulse Pulse Resp BP Pulse Ox O2 Del Method 03/25/22 16:44 36.5 C 94 H 18 137/87 94 Room Air 03/25/22 14:18 90 03/25/22 10:24 103 H 22 154/98 H 94 Room Air 03/25/22 08:00 103 H 03/25/22 08:00 Room Air 03/25/22 08:33 36.9 C 108 H 20 147/93 H 94 Room Air Laboratory Results Na 133, K 5.1, Cl 85, CO2 29, BUn 38, Cr 1.5, glucose 133 Coags on 03/19: INR 1.4 CBC on 03/24: WBC 7.5, Hb 10, HCt 35, Plts 184. Diagnostic Findings RUQ US today: Moderate ascites is seen in all 4 quadrants. KUB 03/24/22: Moderate colonic fecal retention. CTAP 03/17/22: 1. Extensive bilateral pulmonary emboli including a saddle embolus within the main pulmonary arteries. No evidence for right-sided heart strain at this time. 2. Acute left anterior third through fifth rib fractures. No pneumothorax. 3. Additional subacute to chronic fractures within the chest and abdomen as described above. 4. Cirrhotic liver with splenomegaly and a large amount of ascites. This has slightly progressed. 5. Moderate to severe body wall edema again noted. 6. Mildly enlarged anterior diaphragmatic and periportal lymph nodes remain unchanged.
[2022-03-25 21:43] LABS: Partial Thromboplastin Ratio > 5.1
[2022-03-25 21:58] LABS: Partial Thromboplastin Time > 139.0 Seconds (21.0-31.0)
--- NOTE | 2022-03-25 23:17 | Electrocardiogram Report ---
Test Reason : Blood Pressure : / mmHG Vent. Rate : 104 BPM Atrial Rate : 104 BPM P-R Int : 156 ms QRS Dur : 084 ms QT Int : 352 ms P-R-T Axes : 040 099 003 degrees QTc Int : 462 ms Sinus tachycardia Possible Left atrial enlargement Rightward axis Borderline ECG When compared with ECG of 17-MAR-2022 06:52, Nonspecific T wave abnormality no longer evident in Anterior leads Confirmed by Kong Armstrong ([id number]) on 03/25/2022 11:17:32 PM Referred By: REFERRED SELF Confirmed By:Kong Armstrong
[2022-03-26] LABS: Partial Thromboplastin Ratio 3.6
[2022-03-26 00:45] LABS: Partial Thromboplastin Time 100.2 Seconds (21.0-31.0)
[2022-03-26] MEDS ORDERED: ALBUMIN 25% 100 mL 25 GM/100 ML VIAL IV ONE ×2 (06:19→10:52)
[2022-03-26 07:03] LABS: Hematocrit (blood only) 32.3 % (34.1-44.9); Hemoglobin 10.6 g/dl (12.0-16.0); Mean Corpuscular Hemoglobin 29.3 pg (25.0-34.0); Mean Corpuscular Hgb Conc 32.8 g/dL (32.0-36.0); Mean Corpuscular Volume 89.2 fL (80.0-100.0); Mean Platelet Volume 9.2 fL (9.4-12.3); Platelet Count 252 K/uL (130-400); RDW Coefficient of Variation 15.9 % (11.5-14.5); RDW Standard Deviation 51.7 fL (36.4-46.3); Red Blood Count 3.62 M/uL (3.93-5.22); White Blood Count 7.02 K/ul (4.8-10.8)
[2022-03-26 07:24] LABS: BUN Creatinine Ratio 24.7 (10-20); Calcium 9.7 mg/dl (8.5-10.1); Creatinine Clr Calc Pharmacy 49.1 ml/min; Est GFR (African American) 41.1 ml/min; Est GFR (Non-African American) 35.4 ml/min; Potassium 4.9 mmol/L (3.5-5.1)
[2022-03-26 07:30] LABS: Partial Thromboplastin Ratio > 5.1
[2022-03-26 07:34] LABS: Partial Thromboplastin Time > 139.0 Seconds (21.0-31.0)
--- NOTE | 2022-03-26 08:45 | Nephrology Progress Note ---
Date of Service March 26, 2022 Assessment & Plan (1) BLAIRE (acute kidney injury): Plan: 61-year-old female admitted to the hospital after she fell from her bed and was found to have left sided rib fracture as well as bilateral significant pulmonary embolism.Nephrology consulted for acute renal failure in a patient with liver cirrhosis with newly diagnosed bilateral pulmonary emboli. Baseline creatinine 1.1. -Given that the patient has liver disease with cirrhosis, she is always at high risk for having acute renal failure w/ the slightest hemodynamic compromise.She also has massive edema, which is hard to interpret given that she has background liver cirrhosis,and now also has bilateral pulmonary embolism with deep venous thrombosis making the edema worse. - Renal function had improved butnow worsening slowlyl, UOP does appear to be dropping. However she still has significant bilateral dependent and peripheral edema and worsening ascites. for paracentesis in AM ->>>80 mg q8 Iv Lasix on hold for now >>last dose was midday 03/25 and then consider whether/when to resume after paracentesis; may try other diuretics when resuming since uop dropping >>will try bumex instead of lasix 1mg tid starting this evening -cont strict I/O -will need to convert to po loop + wing, once volume status improves and she is ready to be discharged but for now still needs significant diuresis , hence IV -cont 1.2L FR and >2 gm Na -needs daily STANDING weight when able > not likely yet DISCHARGE RECOMMENDATIONS (when ready; pls revisit final neph note for final neph recs) -hospital d/c appt w/ in nephrology at clinic nearest her home in 2- 3 weeks time with BMP (2) Hepatic cirrhosis: Plan: US paracentesis w cell ct and fluid analysis without evidence of SBP and SAAG >1.1 -As per Gastro recs Admission and Anticipated Discharge Date Admission Date: March 17, 2022 Subjective had 3L paracentesis today; abd cont to feel full/bloated. KUB concerning for ileus. moving bowels; still taking po and no N. no sob; ongoing/unchanged edema Review of Systems Review of Systems: All systems reviewed & are unremarkable except as noted in Subjective Physical Exam Constitutional: well developed, well nourished and cooperative Eyes: EOM intact bilaterally ENMT: Ears: no external ear abnormality Nose: no external nose abnormality Mouth: + dry oral mucous membranes Neck: no nuchal rigidity Respiratory: normal respiratory effort (on RA) Auscultation: + diminished l caitlin sounds Cardiovascular: Rate/Rhythm: regular rhythm and + tachycardic Extremities: + edema (3-4+ dependent) Gastrointestinal (Abdomen): Inspection/Auscultation: + abdomen distended, + high-pitched sounds and + hyperactive bowel sounds Percussion/Palpation: + ascites and + abdomen firm; abdomen nontender and no guarding Musculoskeletal: Extremities: + abnormal strength Skin: no rashes, warm and dry Neurologic: barroso, fluent speech, no tremor Psychiatric: Orientation: oriented x 3 Results & Data ([facility]) Vital Signs (Past 12 Hours) Vital Signs Temp Pulse Pulse Resp BP Pulse Ox O2 Del Method 03/26/22 07:17 36.6 C 99 H 18 129/92 97 Nasal Cannula 03/26/22 02:43 36.0 C L 100 H 138/81 90 03/26/22 00:08 Room Air 03/25/22 23:57 98 H 03/25/22 22:16 36.6 C 98 H 20 128/85 92 Room Air O2 Flow Rate 03/26/22 07:17 1.5 03/26/22 02:43 03/26/22 00:08 03/25/22 23:57 03/25/22 22:16 Laboratory Results 03/26/22 06:49 03/26/22 06:49
[2022-03-26] MEDS: CHOLECALCIFEROL 1,000 UNITS 25 MCG TAB PO SCH (08:51)
[2022-03-26] MEDS: INSULIN ASPART PER UNIT SC SCH ×4 (08:51→20:15)
[2022-03-26] MEDS: MAGNESIUM CHLORIDE W/CALCIUM 64MG DELAYED REL TAB PO SCH ×2 (08:52→20:14)
[2022-03-26] MEDS: DOCUSATE SODIUM 100 MG CAP PO SCH ×2 (08:52→20:14)
[2022-03-26] MEDS: LANTUS PER UNIT CHARGE SQ SCH (08:54)
[2022-03-26 09:34] LABS: Partial Thromboplastin Ratio 2.3
--- NOTE | 2022-03-26 10:09 | Ultrasound Report ---
PARACENTESIS UNDER ULTRASOUND GUIDANCE CLINICAL HISTORY: Abdominal ascites COMPARISON STUDY: Abdominal CT dated 03/17/2022. PROCEDURE: The risks, benefits, and alternatives to the procedure were discussed with the patient who voiced understanding. Written informed consent was obtained. Following real-time ultrasound localiza tion of a suitable pocket of fluid in the left lower quadrant, the abdomen was prepped and draped in the usual sterile fashion. The skin and soft tissues were anesthetized with 1% lidocaine. The sheathe d paracentesis needle was inserted and approximately 3. liters of straw-colored ascitic fluid was rem bob by vacuum suction. The procedure was well tolerated and without immediate complication. The hernandez ent left the department in satisfactory condition. IMPRESSION: Successful ultrasound-guided paracentesis with removal of approximately 3.2 liters of asc itic fluid. ACT 112: Negative or not required by law. Electronically signed by: Felipe Aguirre M.D. 03/26/2022 10:08 AM
[2022-03-26 10:10] LABS: Partial Thromboplastin Time 62.6 Seconds (21.0-31.0)
--- NOTE | 2022-03-26 10:55 | Gastroenterology Progress Note ---
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 Will watch for results of ascitic fluid culture. Low salt diet. Appreciate primary hospitalists management of PE/DVTs. Admission and Anticipated Discharge Date Admission Date: March 17, 2022 Supervising Physician Co-Signing Physician Notes Attg add: I interviewed and examined pt, reviewed chart and labs. Pt s/p tap today, with removal of 3 liters. She appears comfortable, but abd remains distended and tympanic, though nontender. Tap PRN. Check KUB for ? ileus. Subjective 61, f JOYCE cirrhosis w wosened ascites and edema. Rt breast/upper abd pain relieved by paracentesis today 3L removed. Cr sl worsened: 1.58 was 1.5 yesterday Review of Systems Review of Systems: ROS: Gen: + weakness/fatigue, No fevers, Eyes: No eye redness, or pain, no recent vision changes Resp: No SOB, no cough Cardio: ++ edema; No palpitations/irregular beats, no chest pain GI: As per HPI : Denies pain on urination Skin: No jaundice, itching or new rashes Physical Exam Constitutional: WD/WN, vitals as above Eyes: PERRL, conjunctivae normal, anicteric sclerae ENMT: external ear and nose normal, oropharynx normal Neck: trachea midline, no thyromegaly Respiratory: normal respiratory effort, lungs clear to auscultation Cardiovascular: Rate/Rhythm: regular rate (90's) and regular rhythm Gastrointestinal (Abdomen): Inspection/Auscultation: + abdomen distended (ascites; decreased compared to prior to paracentesis), normal bowel sounds and + abdominal edema (mild abd wall edema) Percussion/Palpation: abdomen soft and + ascites (large); abdomen nontender Skin: no rashes, warm and dry Neurologic: PERRL, EOMI, accommodation nl, no face palsy, no dysarthria Psychiatric: A+Ox3, euthymic affect Lymphatic: no cervical or axillary lymphadenopathy Results & Data ([facility]) Vital Signs (Past 12 Hours) Vital Signs Temp Pulse Pulse Resp BP BP Pulse Ox 03/26/22 10:22 96 H 17 97 03/26/22 10:22 131/65 03/26/22 10:22 36.8 C 03/26/22 07:17 36.6 C 99 H 18 129/92 97 03/26/22 02:43 36.0 C L 100 H 138/81 90 03/26/22 00:08 03/25/22 23:57 98 H O2 Del Method O2 Flow Rate 03/26/22 10:22 03/26/22 10:22 03/26/22 10:22 03/26/22 07:17 Nasal Cannula 1.5 03/26/22 02:43 03/26/22 00:08 Room Air 03/25/22 23:57 Laboratory Results WBC 7, Hb 10.6, HCT 32, PLT S2 52, NA 132, K4.9, CL 93, CO2 28, BUN 39, CR 1.58, glucose 158 Diagnostic Findings US guided paracentesis today: Successful ultrasound-guided paracentesis with removal of approximately 3.2 liters of ascitic fluid.
[2022-03-26] MEDS: HEPARIN SODIUM/DEXTROSE 25,000 UNITS/500 ML BAG IV SCH (14:02)
--- NOTE | 2022-03-26 16:46 | Hospitalist Progress Note ---
Date of Service March 26, 2022 Assessment & Plan (1) Saddle pulmonary embolus: Plan: Acute Saddle pulmonary embolism Acute DVT of Left LE Hx of COVID infection in Jul was vaccinated in 2020 x 2 doses --CT Chest:Extensive bilateral pulmonary emboli including a saddle embolus within the main pulmonary arteries. No evidence for right-sided heart strain at this time. Acute left anterior third through fifth rib fractures. No pneumothorax. Additional subacute to chronic fractures within the chest and abdomen as described above. Cirrhotic liver with splenomegaly and a large amount of ascites. This has slightly progressed. Moderate to severe body wall edema again noted. Mildly enlarged anterior diaphragmatic and periportal lymph nodes remain unchanged. --ECHO: Aortic valve sclerosis mild, without significant aortic valvular st enosis. Left ventricle cavity is small. Moderate concentric LVH. Left ventricle wall motion is normal. Left ventricle is hyperdynamic. EF greater than 70%. Neck: Sign present with hypokinesis of the right ventricular apex with sparing of the basilar structures and mild apical dilatation consistent with acute pulmonary embolus. Trace tricuspid insufficiency is present --Venous Doppler:Acute appearing occlusive thrombus in the left lower extremity superficial femoral and popliteal veins. Soft tissue edema in the bilateral calf. No definite thrombus of the calf vessels despite limited evaluation. If any clinical deterioration, then tPA will be pursued Appreciate pulmonology input Supplemental oxygen as needed Continue IV Heparin >>Transitioned to Eliquis Hold Eliquis today as had re-peat paracentesis today Continue IV heparin today and transition to Eliquis as able Nocturnal Hypoxia Likely ANEL/OHS Nocturnal Oximetry completed May also need 2 step prior to discharge Will need outpatient sleep study (2) Hepatic cirrhosis: Plan: - Nonalcoholic, hepatitis panel was conducted 01/27/2022 as reviewed in outpatient epic and is negative for hep A, B, C - MELD score 15 today, previously 13 - Scheduled with Dr. Mace as outpatient with hepatology on 05/05/22: In end of December pt was placed on lasix 20 mg daily and spironolactone 50 mg daily, lasix was increased to 40 mg daily on 02/11, now she is up to lasix 40 mg daily and spironolactone 100 mg daily. -Volume overload status --S/P Paracentesis:aspiration of 3 liters of ascites, No SBP --Continue diuretics as per Nephrology --Monitor volume status --Appreciate GI input --Fluid restriction, Low Na diet --Needs follow up with GI upon discharge Repeat abd USD: Moderate ascites is seen in all 4 quadrants. S/P repeat Paracentesis on 03/26/22 IV diuresis as per Nephrology GI following Constipation Had bowel movements but repeat KUB still showed moderate stool Continue bowel regimen Encourage to ambulate (3) Diabetes: Plan: -Last A1c was 9.1 on 01/13/2022 -Holding metformin Continue Insulin (4) Asthma: Plan: -Continue albuterol sulfate (5) Rib fractures: Plan: Left-sided rib fractures Nondisplaced Secondary to fall Continue incentive spirometer Pain control (6) BLAIRE (acute kidney injury): Plan: BLAIRE Cr:1.78>1.5>1.3>1.5 Received Contrast In setting of volume overload Hyperkalemia Appreciate nephrology input Monitor renal function Monitor K levels as well (7) Fall: Plan: Mechanical fall Fall precautions PT/OT Abnormal UA Ruled out UTI Urine Cx Mixed ashley Empirically received Rocephin for 3 days DVT Px: Eliquis--Held IV heparin for now CODE STATUS: Full code Disposition Rehab as able (8) UTI (urinary tract infection): Admission and Anticipated Discharge Date Admission Date: March 17, 2022 Subjective Patient is seen and examined at bedside Had repeat abdominal paracentesis today 3.2 L ascitic fluid removed Patient feels much better after having paracentesis Abdominal discomfort improved Denies any chest pain, dyspnea today Review of Systems Review of Systems: All systems reviewed & are unremarkable except as noted in Subjective Physical Exam Physical Exam: Physical Exam: Vitals signs as noted above General Appearance:Obese, No apparent distress Head: normocephalic, Atraumatic Eyes: normal inspection, EOMI Neck: supple, Trachea midline Respiratory/Chest: Decreased breath sounds, CTA, No accessory muscle use Cardiovascular: S1, S2, No murmur Abdomen/GI:Soft, abd distended, Non tender, Bowel sounds present Extremities/Musculoskeletal:normal inspection, +3 B/L LE edema Neurologic/Psych:AAOX3, grossly no focal neurological deficits Skin: normal color, warm Results & Data Results & Data ([facility]) Vital Signs (Past 12 Hours) Vital Signs Temp Pulse Pulse Resp BP BP Pulse Ox 03/26/22 15:17 36.9 C 87 18 116/68 98 03/26/22 12:22 93 H 03/26/22 12:00 36.8 C 91 H 16 117/66 97 03/26/22 11:00 91 H 12 97 03/26/22 10:45 91 H 16 98 03/26/22 10:30 92 H 12 97 03/26/22 10:22 96 H 17 97 03/26/22 10:22 131/65 03/26/22 10:22 36.8 C 03/26/22 07:17 36.6 C 99 H 18 129/92 97 O2 Del Method O2 Flow Rate 03/26/22 15:17 Room Air 03/26/22 12:22 03/26/22 12:00 Nasal Cannula 2 03/26/22 11:00 03/26/22 10:45 03/26/22 10:30 03/26/22 10:22 03/26/22 10:22 03/26/22 10:22 03/26/22 07:17 Nasal Cannula 1.5 Laboratory Results Short CBC 03/26/22 Range/Units 06:49 WBC 7.02 (4.8-10.8) K/ul Hgb 10.6 L (12.0-16.0) g/dl Hct 32.3 L (34.1-44.9) % Plt Count 252 (130-400) K/uL BMP 03/26/22 06:49 Sodium 132 L Potassium 4.9 Chloride 93 L Carbon Dioxide 28 BUN 39 H Creatinine 1.58 H Glucose 134 H Calcium 9.7
--- NOTE | 2022-03-26 17:38 | XRay Report ---
KUB CLINICAL HISTORY: Evaluate ileus. COMPARISON STUDY: CT of the abdomen and pelvis March 17, 2022. KUB March 24, 2022. FINDINGS: Moderate distention of the colon is noted. This is similar to prior exam. Large amount of s tool within the right colon is present. Mild small bowel dilatation has developed. There are cholecys tectomy clips. Elevation of the right hemidiaphragm is noted. Oval-shaped 1.5 cm density projects of the right upper quadrant. This could reflect an ingested tablet. There is no evidence for free air on supine exam. IMPRESSION: Moderate colonic and mild small bowel dilatation. This favors an ileus. A colonic obstruction could a ppear similar although is considered less likely. Radiographic follow-up is recommended. ACT 112: Negative or not required by law. Electronically signed by: Dave Triana M.D. 03/26/2022 5:36 PM
[2022-03-26] MEDS: BUMETANIDE 1 MG in SYRINGE 0 ML IV SCH (20:14)
[2022-03-26 20:21] LABS: Partial Thromboplastin Ratio 1.9
[2022-03-26] MEDS: oxyCODONE/ACETAMINOPHEN 5mg/325mg TAB PO PRN (20:25)
[2022-03-26 20:37] LABS: Partial Thromboplastin Time 52.7 Seconds (21.0-31.0)
[2022-03-27] MEDS: BUMETANIDE 1 MG in SYRINGE 0 ML IV SCH ×3 (03:31→21:00)
[2022-03-27 07:09] LABS: Hematocrit (blood only) 27.8 % (34.1-44.9); Hemoglobin 9.1 g/dl (12.0-16.0); Mean Corpuscular Hemoglobin 29.4 pg (25.0-34.0); Mean Corpuscular Hgb Conc 32.7 g/dL (32.0-36.0); Mean Corpuscular Volume 89.7 fL (80.0-100.0); Mean Platelet Volume 9.2 fL (9.4-12.3); Platelet Count 183 K/uL (130-400); RDW Standard Deviation 51.8 fL (36.4-46.3); White Blood Count 4.19 K/ul (4.8-10.8)
[2022-03-27 07:34] LABS: Partial Thromboplastin Ratio 2.1
[2022-03-27 07:36] LABS: BUN Creatinine Ratio 26.1 (10-20); Calcium 9.2 mg/dl (8.5-10.1); Creatinine Clr Calc Pharmacy 50.6 ml/min; Est GFR (African American) 42.7 ml/min; Est GFR (Non-African American) 36.8 ml/min; Partial Thromboplastin Time 58.7 Seconds (21.0-31.0); Potassium 4.3 mmol/L (3.5-5.1)
[2022-03-27] MEDS: INSULIN ASPART PER UNIT SC SCH ×4 (08:33→20:52)
[2022-03-27] MEDS: DOCUSATE SODIUM 100 MG CAP PO SCH ×2 (08:34→21:00)
[2022-03-27] MEDS: CHOLECALCIFEROL 1,000 UNITS 25 MCG TAB PO SCH (08:34)
[2022-03-27] MEDS: LANTUS PER UNIT CHARGE SQ SCH (08:35)
[2022-03-27] MEDS: MAGNESIUM CHLORIDE W/CALCIUM 64MG DELAYED REL TAB PO SCH ×2 (08:35→20:58)
[2022-03-27] MEDS: oxyCODONE/ACETAMINOPHEN 5mg/325mg TAB PO PRN (08:35)
--- NOTE | 2022-03-27 08:42 | Nephrology Progress Note ---
Date of Service March 27, 2022 Assessment & Plan (1) BLAIRE (acute kidney injury): Plan: 61-year-old female admitted to the hospital after she fell from her bed and was found to have left sided rib fracture as well as bilateral significant pulmonary embolism.Nephrology consulted for acute renal failure in a patient with liver cirrhosis with newly diagnosed bilateral pulmonary emboli. Baseline creatinine 1.1. (2) Hepatic cirrhosis: Plan: US paracentesis w cell ct and fluid analysis without evidence of SBP and SAAG >1.1 -As per Gastro recs Admission and Anticipated Discharge Date Admission Date: March 17, 2022 Subjective note created in error Review of Systems Review of Systems: All systems reviewed & are unremarkable except as noted in Subjective Physical Exam Constitutional: well developed, well nourished and cooperative Eyes: EOM intact bilaterally ENMT: Ears: no external ear abnormality Nose: no external nose abnormality Mouth: + dry oral mucous membranes Neck: no nuchal rigidity Respiratory: normal respiratory effort (on RA) Auscultation: + diminished lung sounds and + crackles (few bibasilar) Cardiovascular: Rate/Rhythm: regular rhythm and + tachycardic Extremities: + edema (3-4+ dependent) Gastrointestinal (Abdomen): Inspection/Auscultation: + abdomen distended, normal bowel sounds, + high-pitched sounds and + hyperactive bowel sounds Percussion/Palpation: + ascites; abdomen nontender and no guarding Musculoskeletal: Extremities: + abnormal strength Skin: no rashes, warm and dry Psychiatric: Orientation: oriented x 3 Results & Data ([facility]) Vital Signs (Past 12 Hours) Vital Signs Temp Pulse Pulse Resp BP Pulse Ox O2 Del Method 03/27/22 07:51 36.6 C 94 H 16 108/67 97 Nasal Cannula 03/27/22 03:04 36.7 C 86 16 118/69 97 Nasal Cannula 03/26/22 22:00 Nasal Cannula 03/27/22 00:05 91 H 03/26/22 23:33 36.8 C 89 18 113/67 97 O2 Flow Rate 03/27/22 07:51 2 03/27/22 03:04 03/26/22 22:00 2 03/27/22 00:05 03/26/22 23:33 Laboratory Results 03/27/22 06:52 03/27/22 06:52
--- NOTE | 2022-03-27 14:19 | Communication Note ---
Date of Service: March 27, 2022 Hold IV Heparin at 2 AM 03/28/2022 for paracentesis.
--- NOTE | 2022-03-27 14:26 | Hospitalist Progress Note ---
Date of Service March 27, 2022 Assessment & Plan (1) Saddle pulmonary embolus: Plan: Acute Saddle pulmonary embolism Acute DVT of Left LE Hx of COVID infection in Jul was vaccinated in 2020 x 2 doses --CT Chest:Extensive bilateral pulmonary emboli including a saddle embolus within the main pulmonary arteries. No evidence for right-sided heart strain at this time. Acute left anterior third through fifth rib fractures. No pneumothorax. Additional subacute to chronic fractures within the chest and abdomen as described above. Cirrhotic liver with splenomegaly and a large amount of ascites. This has slightly progressed. Moderate to severe body wall edema again noted. Mildly enlarged anterior diaphragmatic and periportal lymph nodes remain unchanged. --ECHO: Aortic valve sclerosis mild, without significant aortic valvular sage nosis. Left ventricle cavity is small. Moderate concentric LVH. Left ventricle wall motion is normal. Left ventricle is hyperdynamic. EF greater than 70%. Neck: Sign present with hypokinesis of the right ventricular apex with sparing of the basilar structures and mild apical dilatation consistent with acute pulmonary embolus. Trace tricuspid insufficiency is present --Venous Doppler:Acute appearing occlusive thrombus in the left lower extremity superficial femoral and popliteal veins. Soft tissue edema in the bilateral calf. No definite thrombus of the calf vessels despite limited evaluation. If any clinical deterioration, then tPA will be pursued Appreciate pulmonology input Supplemental oxygen as needed Continue IV Heparin >>Transitioned to Eliquis Will need another paracentesis likely tomorrow We will hold Heparin at around 2 AM tomorrow to have the paracentesis done Nocturnal Hypoxia Likely ANEL/OHS Nocturnal Oximetry completed May also need 2 step prior to discharge Will need outpatient sleep study Denies any shortness of breath at rest (2) Hepatic cirrhosis: Plan: - Nonalcoholic, hepatitis panel was conducted 01/27/2022 as reviewed in outpatient epic and is negative for hep A, B, C - MELD score 15 today, previously 13 - Scheduled with Dr. Mace as outpatient with hepatology on 05/05/22: In end of December pt was placed on lasix 20 mg daily and spironolactone 50 mg daily, lasix was increased to 40 mg daily on 02/11, now she is up to lasix 40 mg daily and spironolactone 100 mg daily. -Volume overload status --S/P Paracentesis:aspiration of 3 liters of ascites, No SBP --Continue diuretics as per Nephrology --Appreciate GI input --Fluid restriction, Low Na diet --Needs follow up with GI upon discharge Repeat abd USD: Moderate ascites is seen in all 4 quadrants. S/P repeat Paracentesis on 03/26/22 IV diuresis as per Nephrology Abdomen remains distended and will need another paracentesis Will give albumin pre and post paracentesis and schedule that for tomorrow if possible Constipation Had bowel movements but repeat KUB still showed moderate stool Continue bowel regimen Encourage to ambulate (3) Diabetes: Plan: -Last A1c was 9.1 on 01/13/2022 -Holding metformin Continue Insulin (4) Asthma: Plan: -Continue albuterol sulfate (5) Rib fractures: Plan: Left-sided rib fractures Nondisplaced Secondary to fall Continue incentive spirometer Pain control (6) BLAIRE (acute kidney injury): Plan: BLAIRE Cr:1.78>1.5>1.3>1.5 Received Contrast In setting of volume overload Hyperkalemia Appreciate nephrology input Monitor renal function Monitor K levels as well Has been on Bumex (7) Fall: Plan: Mechanical fall Fall precautions PT/OT Abnormal UA Ruled out UTI Urine Cx Mixed ashley Empirically received Rocephin for 3 days DVT Px: Eliquis--Held IV heparin for now CODE STATUS: Full code Disposition Rehab as able (8) UTI (urinary tract infection): Admission and Anticipated Discharge Date Admission Date: March 17, 2022 Subjective 03/27/2022 The patient was seen and examined in telemetry unit She complains to have pain in the right upper quadrant without nausea or vomiting Her abdomen is distended and she feels bloated Denies any shortness of breath at rest Review of Systems Review of Systems: All systems reviewed and are unremarkable except as noted below Gastrointestinal: Abdominal distention with discomfort in right upper quadrant Neurologic: Week Physical Exam Physical Exam: Lying in bed comfortably Constitutional: well developed, well nourished and + obese; not ill appearing Eyes: PERRL, conjunctivae normal, anicteric sclerae ENMT: external ear and nose normal, oropharynx normal Neck: trachea midline, no thyromegaly Respiratory: + respiratory distress (Minimal distress at rest) Auscultation: + diminished lung sounds and + crackles (Occasional crackles at the bases) Cardiovascular: Rate/Rhythm: regular rate, regular rhythm and + tachycardic Heart Sounds: normal S1, normal S2 and + murmur Extremities: + edema Gastrointestinal (Abdomen): Inspection/Auscultation: + abdomen distended; + abnormal bowel sounds (Decreased) Percussion/Palpation: + abdomen tender (Right upper quadrant); + abdomen not soft (A little firm) Neurologic: Alert, awake and oriented x3. Generally weak but no focal neurodeficit Results & Data Results & Data ([facility]) Vital Signs (Past 12 Hours) Vital Signs Temp Pulse Resp BP Pulse Ox O2 Del Method O2 Flow Rate 03/27/22 12:05 37.0 C 99 H 16 112/79 97 Nasal Cannula 2 03/27/22 08:00 Nasal Cannula 2 03/27/22 07:51 36.6 C 94 H 16 108/67 97 Nasal Cannula 2 03/27/22 03:04 36.7 C 86 16 118/69 97 Nasal Cannula Laboratory Results Short CBC 03/27/22 Range/Units 06:52 WBC 4.19 L (4.8-10.8) K/ul Hgb 9.1 L (12.0-16.0) g/dl Hct 27.8 L (34.1-44.9) % Plt Count 183 (130-400) K/uL BMP 03/27/22 06:52 Sodium 133 L Potassium 4.3 Chloride 96 L Carbon Dioxide 31 BUN 40 H Creatinine 1.53 H Glucose 104 H Calcium 9.2 Medications Administered Current Inpatient Medications Albuterol (Albuterol Hfa 8 Gm Inhaler) 2 puffs INH Q4 PRN PRN Reason: Shortness Of Breath Or Wheezing Stop: 04/16/22 14:35 Apixaban (Apixaban 5 Mg Tablet) 10 mg PO BID [facility] Last Admin: 03/25/22 07:50 Dose: 10 mg Apixaban (Apixaban 5 Mg Tablet) 5 mg PO BID [facility] Stop: 04/27/22 08:59 Bisacodyl (Bisacodyl 10 Mg Supp) 10 mg ND DAILY PRN PRN Reason: Constipation Stop: 04/22/22 12:25 Dextrose (Dextrose 50% 50 Ml Syringe) 25 - 50 ml IV UD PRN; Protocol PRN Reason: Hypoglycemia Protocol Stop: 04/16/22 14:35 Docusate Sodium (Docusate Sodium 100 Mg Cap) 100 mg PO BID [facility] Stop: 04/23/22 20:59 Last Admin: 03/27/22 08:34 Dose: 100 mg Glucagon (Glucagon For Inj 1 Mg Vial) 1 mg SQ UD PRN; Protocol PRN Reason: Hypoglycemia Protocol Stop: 04/16/22 14:35 Glucose (Glucose 40% Gel 15 Gm Tube) 15 - 30 gm PO UD PRN; Protocol PRN Reason: Hypoglycemia Protocol Stop: 04/16/22 14:35 Glucose (Glucose 10 Tab/Tube) 4 - 8 tab PO UD PRN; Protocol PRN Reason: Hypoglycemia Treatment Stop: 04/16/22 14:35 Heparin Sodium/Dextrose (Heparin Sodium/Dextrose) 25,000 units in 500 mls @ 13 mls/hr IV .Q24H [facility]; Protocol Stop: 04/24/22 14:14 Last Titration: 03/27/22 07:43 Dose: 650 units/hr, 13 mls/hr Bumetanide 1 mg/ Syringe 4 mls @ 4 mls/min IV Q8H [facility] Stop: 04/25/22 18:59 Last Admin: 03/27/22 11:59 Dose: 4 mls/min Albumin Human (Albumin 25% 100 Ml) 25 gm in 100 mls @ 50 mls/hr IV TODAY@0800 [facility] Stop: 03/28/22 18:00 Albumin Human (Albumin 25% 100 Ml) 25 gm in 100 mls @ 50 mls/hr IV TODAY@1000 [facility] Stop: 03/28/22 18:00 Insulin Aspart (Insulin Aspart Per Unit) 0 units SC ACHS [facility] Stop: 04/16/22 14:35 Last Admin: 03/27/22 11:58 Dose: 5 units Insulin Glargine (Lantus Per Unit Charge) 10 units SQ QAM [facility] Stop: 04/17/22 08:59 Last Admin: 03/27/22 08:35 Dose: 10 units Magnesium Chloride (Magnesium Chloride W/Calcium 64mg Delayed Rel Tab) 64 mg PO BID [facility] Stop: 04/20/22 08:59 Last Admin: 03/27/22 08:35 Dose: 64 mg Miscellaneous (Carbohydrates For Hypoglycemia ) 15 - 30 gm PO UD PRN PRN Reason: Hypoglycemia Protocol Stop: 04/16/22 14:35 Miscellaneous (Remove Lidoderm Patch) 1 each N/A DAILY@2100 [facility] Stop: 04/16/22 20:59 Last Admin: 03/26/22 20:15 Dose: 1 each Nystatin (Nystatin Powder 15gm Btl) 1 appln EXT TIDM PRN PRN Reason: Affected Skin Folds Stop: 04/22/22 11:45 Last Admin: 03/25/22 07:51 Dose: 1 appln Ondansetron HCl (Ondansetron Inj 2 Mg/Ml 2 Ml Vial) 4 mg IV Q6H PRN PRN Reason: Nausea And Vomiting Stop: 04/16/22 21:37 Last Admin: 03/22/22 05:47 Dose: 4 mg Oxycodone/Acetaminophen (Oxycodone/Acetaminophen 5mg/325mg Tab) 1 tab PO Q8H PRN PRN Reason: Pain Stop: 03/31/22 14:35 Last Admin: 03/27/22 08:35 Dose: 1 tab Polyethylene Glycol (Polyethylene (Miralax) 17 Gm Pack) 17 gm PO DAILY PRN PRN Reason: Constipation Stop: 04/21/22 10:59 Sennosides (Senna 8.6 Mg Tab) 8.6 mg PO QAM PRN PRN Reason: Constipation Stop: 04/21/22 12:29 Vitamin D (Cholecalciferol 1,000 Units 25 Mcg Tab) 1,000 units PO QAM [facility] Stop: 04/17/22 08:59 Last Admin: 03/27/22 08:34 Dose: 1,000 units
[2022-03-27] MEDS: HEPARIN SODIUM/DEXTROSE 25,000 UNITS/500 ML BAG IV SCH (16:57)
[2022-03-28] MEDS: BUMETANIDE 1 MG in SYRINGE 0 ML IV SCH ×3 (02:10→20:00)
[2022-03-28 07:25] LABS: Basophils # (auto) 0.09 K/uL (0-0.2); Basophils % (auto) 1.7 %; Eosinophils # (auto) 0.15 K/uL (0-0.50); Eosinophils % (auto) 2.8 %; Hematocrit (blood only) 30.1 % (34.1-44.9); Hemoglobin 9.8 g/dl (12.0-16.0); Immature Granulocytes # (auto) 0.05 K/uL (0.00-0.02); Immature Granulocytes % (auto) 0.9 %; Lymphocytes # (auto) 0.79 K/uL (1.2-3.4); Lymphocytes % (auto) 14.9 %; Mean Corpuscular Hemoglobin 29.6 pg (25.0-34.0); Mean Corpuscular Hgb Conc 32.6 g/dL (32.0-36.0); Mean Corpuscular Volume 90.9 fL (80.0-100.0); Mean Platelet Volume 9.6 fL (9.4-12.3); Monocytes # (auto) 0.58 K/uL (0.24-0.82); Neutrophils # (auto) 3.63 K/uL (1.4-6.5); Neutrophils % (auto) 68.7 %; Platelet Count 215 K/uL (130-400); RDW Coefficient of Variation 16.2 % (11.5-14.5); RDW Standard Deviation 52.9 fL (36.4-46.3); Red Blood Count 3.31 M/uL (3.93-5.22); White Blood Count 5.29 K/ul (4.8-10.8)
[2022-03-28 07:44] LABS: Albumin Globulin Ratio 1.2 (0.9-2); Albumin Level 3.4 gm/dl (3.4-5.0); BUN Creatinine Ratio 26.5 (10-20); Calcium 9.2 mg/dl (8.5-10.1); Est GFR (African American) 43.4 ml/min; Est GFR (Non-African American) 37.4 ml/min; Globulin 2.9 gm/dl (2.5-4.0); Phosphorus 4.1 mg/dl (2.5-4.9); Potassium 4.6 mmol/L (3.5-5.1); Total Protein 6.3 gm/dl (6.0-8.3)
[2022-03-28 07:56] LABS: Partial Thromboplastin Ratio 1.5; Partial Thromboplastin Time 40.1 Seconds (21.0-31.0)
[2022-03-28] MEDS ORDERED: ALBUMIN 25% 100 mL 25 GM/100 ML VIAL IV SCH ×2 (08:00→10:00)
[2022-03-28] MEDS: CHOLECALCIFEROL 1,000 UNITS 25 MCG TAB PO SCH (08:08)
[2022-03-28] MEDS: MAGNESIUM CHLORIDE W/CALCIUM 64MG DELAYED REL TAB PO SCH ×2 (08:08→20:48)
[2022-03-28] MEDS: DOCUSATE SODIUM 100 MG CAP PO SCH ×2 (08:08→20:48)
[2022-03-28] MEDS: INSULIN ASPART PER UNIT SC SCH ×4 (08:11→20:35)
[2022-03-28] MEDS: LANTUS PER UNIT CHARGE SQ SCH (08:11)
[2022-03-28] MEDS ORDERED: APIXABAN 5 MG TABLET PO SCH (09:00)
--- NOTE | 2022-03-28 11:01 | Nephrology Progress Note ---
Date of Service March 28, 2022 Assessment & Plan (1) BLAIRE (acute kidney injury): Plan: 61-year-old female admitted to the hospital after she fell from her bed and was found to have left sided rib fracture as well as bilateral significant pulmonary embolism.Nephrology consulted for acute renal failure in a patient with liver cirrhosis with newly diagnosed bilateral pulmonary emboli. Baseline creatinine 1.1. Her renl function fluctuate with Volume status,, likely component of abdominal compartment syndrome. For Para today--- Scr 1.5 today (2) Hepatic cirrhosis: Plan: US paracentesis w cell ct and fluid analysis without evidence of SBP and SAAG >1.1 -As per Gastro recs Admission and Anticipated Discharge Date Admission Date: March 17, 2022 Subjective Comfortable Abdomen massively distended but not tender 3+ pitting edema Review of Systems Review of Systems: All systems reviewed & are unremarkable except as noted in HPI & below Physical Exam Physical Exam: Middle-aged white female who is obese. She is awake, alert, and oriented and was able to give me a detailed account of her medical history and problem. HEENT: Mucous membrane is moist. NECK: Supple and obese neck. Could not appreciate JVD. CHEST: Bilateral decreased breath sound. Poor inspiratory effort limiting the quality of exam. CARDIOVASCULAR: S1 and S2 regular. ABDOMEN: Soft, distended with significant ascites. EXTREMITIES: Bilaterally 3-4+ edema, pitting type and very densely edematous. NEUROLOGIC: Normal speech. Awake, alert, oriented x3. She does not seem confused at this time and was able to give a detailed account of her medical history. Normal speech. Results & Data ([facility]) Vital Signs (Past 12 Hours) Vital Signs Temp Pulse Pulse Resp BP Pulse Ox O2 Del Method 03/28/22 10:48 36.7 C 94 H 20 106/76 98 Nasal Cannula 03/28/22 10:26 93 H 03/28/22 07:46 Nasal Cannula 03/28/22 07:12 36.8 C 95 H 19 124/77 97 Nasal Cannula 03/28/22 03:00 36.7 C 98 H 20 131/77 97 Nasal Cannula O2 Flow Rate 03/28/22 10:48 2 03/28/22 10:26 03/28/22 07:46 2 03/28/22 07:12 2 03/28/22 03:00 Laboratory Results 03/28/22 06:14 09/03/22 06:14
--- NOTE | 2022-03-28 12:52 | Hospitalist Progress Note ---
Date of Service March 28, 2022 Assessment & Plan (1) Saddle pulmonary embolus: Plan: Acute Saddle pulmonary embolism Acute DVT of Left LE Hx of COVID infection in Jul was vaccinated in 2020 x 2 doses --CT Chest:Extensive bilateral pulmonary emboli including a saddle embolus within the main pulmonary arteries. No evidence for right-sided heart strain at this time. Acute left anterior third through fifth rib fractures. No pneumothorax. Additional subacute to chronic fractures within the chest and abdomen as described above. Cirrhotic liver with splenomegaly and a large amount of ascites. This has slightly progressed. Moderate to severe body wall edema again noted. Mildly enlarged anterior diaphragmatic and periportal lymph nodes remain unchanged. --ECHO: Aortic valve sclerosis mild, without significant aortic valvular sage nosis. Left ventricle cavity is small. Moderate concentric LVH. Left ventricle wall motion is normal. Left ventricle is hyperdynamic. EF greater than 70%. Neck: Sign present with hypokinesis of the right ventricular apex with sparing of the basilar structures and mild apical dilatation consistent with acute pulmonary embolus. Trace tricuspid insufficiency is present --Venous Doppler:Acute appearing occlusive thrombus in the left lower extremity superficial femoral and popliteal veins. Soft tissue edema in the bilateral calf. No definite thrombus of the calf vessels despite limited evaluation. If any clinical deterioration, then tPA will be pursued Appreciate pulmonology input Supplemental oxygen as needed Continue IV Heparin >>Transitioned to Eliquis Paracentesis will not be done today and the heparin will be restarted Abdomen remains distended with discomfort mainly over right upper quadrant without any nausea and or vomiting Discussed with radiologist and will have paracentesis on Wednesday Nocturnal Hypoxia Likely ANEL/OHS Nocturnal Oximetry completed May also need 2 step prior to discharge Will need outpatient sleep study Denies any shortness of breath at rest (2) Hepatic cirrhosis: Plan: - Nonalcoholic, hepatitis panel was conducted 01/27/2022 as reviewed in outpatient epic and is negative for hep A, B, C - MELD score 15 today, previously 13 - Scheduled with Dr. Mace as outpatient with hepatology on 05/05/22: In end of December pt was placed on lasix 20 mg daily and spironolactone 50 mg daily, lasix was increased to 40 mg daily on 02/11, now she is up to lasix 40 mg daily and spironolactone 100 mg daily. -Volume overload status --S/P Paracentesis:aspiration of 3 liters of ascites, No SBP --Continue diuretics as per Nephrology --Appreciate GI input --Fluid restriction, Low Na diet --Needs follow up with GI upon discharge Repeat abd USD: Moderate ascites is seen in all 4 quadrants. S/P repeat Paracentesis on 03/26/22 IV diuresis as per Nephrology Abdomen remains distended and will need another paracentesis Will need albumin before and after paracentesis Likely to need continuous drainage of acetic fluid with a Pleurx catheter in place-we will discussed with the environmental laboratory technician Constipation Had bowel movements but repeat KUB still showed moderate stool Continue bowel regimen Encourage to ambulate (3) Diabetes: Plan: -Last A1c was 9.1 on 01/13/2022 -Holding metformin Continue Insulin (4) Asthma: Plan: -Continue albuterol sulfate (5) Rib fractures: Plan: Left-sided rib fractures Nondisplaced Secondary to fall Continue incentive spirometer Pain control (6) BLAIRE (acute kidney injury): Plan: BLAIRE Cr:1.78>1.5>1.3>1.5 Received Contrast In setting of volume overload Hyperkalemia Appreciate nephrology input Monitor renal function Monitor K levels as well Has been on Bumex-creatinine remains stable at 1.51 (7) Fall: Plan: Mechanical fall Fall precautions PT/OT Abnormal UA Ruled out UTI Urine Cx Mixed ashley Empirically received Rocephin for 3 days DVT Px: Eliquis--Held IV heparin for now CODE STATUS: Full code Disposition Rehab as able (8) UTI (urinary tract infection): Admission and Anticipated Discharge Date Admission Date: March 17, 2022 Subjective 03/27/2022 The patient was seen and examined in telemetry unit She complains to have pain in the right upper quadrant without nausea or vomiting Her abdomen is distended and she feels bloated Denies any shortness of breath at rest 03/28/2022 The patient was seen and examined in telemetry unit She has been stable with some complaints of pain over the right upper quadrant Abdomen remains distended and bloated Denies any shortness of breath at rest. Denies any nausea and or vomiting Review of Systems Review of Systems: All systems reviewed and are unremarkable except as noted below Gastrointestinal: Abdominal distention with discomfort in right upper quadrant Neurologic: Week Physical Exam Physical Exam: Lying in bed comfortably Constitutional: well developed, well nourished and + obese; not ill appearing Eyes: PERRL, conjunctivae normal, anicteric sclerae ENMT: external ear and nose normal, oropharynx normal Neck: trachea midline, no thyromegaly Respiratory: + respiratory distress (Minimal distress at rest) Auscultation: + diminished lung sounds and + crackles (Occasional crackles at the bases) Cardiovascular: Rate/Rhythm: regular rate, regular rhythm and + tachycardic Heart Sounds: normal S1, normal S2 and + murmur Extremities: + edema (2+ edema bilaterally) Gastrointestinal (Abdomen): Inspection/Auscultation: + abdomen distended; + abnormal bowel sounds (Decreased) Percussion/Palpation: + abdomen tender (Right upper quadrant); + abdomen not soft (A little firm) Neurologic: Alert, awake and oriented x3. Generally very weak and lethargic. No focal neurodeficit Results & Data Results & Data ([facility]) Vital Signs (Past 12 Hours) Vital Signs Temp Pulse Pulse Resp BP Pulse Ox O2 Del Method 03/28/22 10:48 36.7 C 94 H 20 106/76 98 Nasal Cannula 03/28/22 10:26 93 H 03/28/22 07:46 Nasal Cannula 03/28/22 07:12 36.8 C 95 H 19 124/77 97 Nasal Cannula 03/28/22 03:00 36.7 C 98 H 20 131/77 97 Nasal Cannula O2 Flow Rate 03/28/22 10:48 2 03/28/22 10:26 03/28/22 07:46 2 03/28/22 07:12 2 03/28/22 03:00 Laboratory Results Short CBC 03/28/22 Range/Units 06:14 WBC 5.29 (4.8-10.8) K/ul Hgb 9.8 L (12.0-16.0) g/dl Hct 30.1 L (34.1-44.9) % Plt Count 215 (130-400) K/uL BMP 03/28/22 06:14 Sodium 132 L Potassium 4.6 Chloride 95 L Carbon Dioxide 31 BUN 40 H Creatinine 1.51 H Glucose 140 H Calcium 9.2 Liver Function 03/28/22 Range/Units 06:14 Total Bilirubin 1.0 (0.2-1.0) mg/dl AST 21 (13-39) U/L ALT 9 (7-52) U/L Alkaline Phosphatase 99 (34-104) U/L Albumin 3.4 (3.4-5.0) gm/dl Medications Administered Current Inpatient Medications Albuterol (Albuterol Hfa 8 Gm Inhaler) 2 puffs INH Q4 PRN PRN Reason: Shortness Of Breath Or Wheezing Stop: 04/16/22 14:35 Apixaban (Apixaban 5 Mg Tablet) 10 mg PO BID [facility] Last Admin: 03/25/22 07:50 Dose: 10 mg Apixaban (Apixaban 5 Mg Tablet) 5 mg PO BID [facility] Stop: 04/27/22 08:59 Bisacodyl (Bisacodyl 10 Mg Supp) 10 mg [place] DAILY PRN PRN Reason: Constipation Stop: 04/22/22 12:25 Dextrose (Dextrose 50% 50 Ml Syringe) 25 - 50 ml IV UD PRN; Protocol PRN Reason: Hypoglycemia Protocol Stop: 04/16/22 14:35 Docusate Sodium (Docusate Sodium 100 Mg Cap) 100 mg PO BID [facility] Stop: 04/23/22 20:59 Last Admin: 03/28/22 08:08 Dose: 100 mg Glucagon (Glucagon For Inj 1 Mg Vial) 1 mg SQ UD PRN; Protocol PRN Reason: Hypoglycemia Protocol Stop: 04/16/22 14:35 Glucose (Glucose 40% Gel 15 Gm Tube) 15 - 30 gm PO UD PRN; Protocol PRN Reason: Hypoglycemia Protocol Stop: 04/16/22 14:35 Glucose (Glucose 10 Tab/Tube) 4 - 8 tab PO UD PRN; Protocol PRN Reason: Hypoglycemia Treatment Stop: 04/16/22 14:35 Heparin Sodium/Dextrose (Heparin Sodium/Dextrose) 25,000 units in 500 mls @ 13 mls/hr IV .Q24H [facility]; Protocol Stop: 04/24/22 14:14 Last Titration: 03/28/22 10:57 Dose: 650 units/hr, 13 mls/hr Bumetanide 1 mg/ Syringe 4 mls @ 4 mls/min IV Q8H [facility] Stop: 04/25/22 18:59 Last Admin: 03/28/22 11:18 Dose: 4 mls/min Insulin Aspart (Insulin Aspart Per Unit) 0 units SC ACHS [facility] Stop: 04/16/22 14:35 Last Admin: 03/28/22 12:16 Dose: 5 units Insulin Glargine (Lantus Per Unit Charge) 10 units SQ QAM [facility] Stop: 04/17/22 08:59 Last Admin: 03/28/22 08:11 Dose: 10 units Magnesium Chloride (Magnesium Chloride W/Calcium 64mg Delayed Rel Tab) 64 mg PO BID [facility] Stop: 04/20/22 08:59 Last Admin: 03/28/22 08:08 Dose: 64 mg Miscellaneous (Carbohydrates For Hypoglycemia ) 15 - 30 gm PO UD PRN PRN Reason: Hypoglycemia Protocol Stop: 04/16/22 14:35 Miscellaneous (Remove Lidoderm Patch) 1 each N/A DAILY@2100 [facility] Stop: 04/16/22 20:59 Last Admin: 03/27/22 21:01 Dose: Not Given Nystatin (Nystatin Powder 15gm Btl) 1 appln EXT TIDM PRN PRN Reason: Affected Skin Folds Stop: 04/22/22 11:45 Last Admin: 03/25/22 07:51 Dose: 1 appln Ondansetron HCl (Ondansetron Inj 2 Mg/Ml 2 Ml Vial) 4 mg IV Q6H PRN PRN Reason: Nausea And Vomiting Stop: 04/16/22 21:37 Last Admin: 03/22/22 05:47 Dose: 4 mg Oxycodone/Acetaminophen (Oxycodone/Acetaminophen 5mg/325mg Tab) 1 tab PO Q8H PRN PRN Reason: Pain Stop: 03/31/22 14:35 Last Admin: 03/27/22 08:35 Dose: 1 tab Polyethylene Glycol (Polyethylene (Miralax) 17 Gm Pack) 17 gm PO DAILY PRN PRN Reason: Constipation Stop: 04/21/22 10:59 Sennosides (Senna 8.6 Mg Tab) 8.6 mg PO QAM PRN PRN Reason: Constipation Stop: 04/21/22 12:29 Vitamin D (Cholecalciferol 1,000 Units 25 Mcg Tab) 1,000 units PO QAM [facility] Stop: 04/17/22 08:59 Last Admin: 03/28/22 08:08 Dose: 1,000 units
[2022-03-28 17:57] LABS: Partial Thromboplastin Ratio 1.7
[2022-03-28 18:20] LABS: Partial Thromboplastin Time 47.1 Seconds (21.0-31.0)
[2022-03-28] MEDS: oxyCODONE/ACETAMINOPHEN 5mg/325mg TAB PO PRN (18:23)
[2022-03-28] MEDS: HEPARIN SODIUM/DEXTROSE 25,000 UNITS/500 ML BAG IV SCH (19:09)
[2022-03-29] MEDS: oxyCODONE/ACETAMINOPHEN 5mg/325mg TAB PO PRN ×3 (00:02→15:01)
[2022-03-29] MEDS: BUMETANIDE 1 MG in SYRINGE 0 ML IV SCH ×3 (03:00→20:00)
[2022-03-29] MEDS: HEPARIN SODIUM/DEXTROSE 25,000 UNITS/500 ML BAG IV SCH (05:38)
[2022-03-29] MEDS: INSULIN ASPART PER UNIT SC SCH ×4 (08:48→20:40)
[2022-03-29] MEDS: DOCUSATE SODIUM 100 MG CAP PO SCH ×2 (08:49→21:13)
[2022-03-29] MEDS: MAGNESIUM CHLORIDE W/CALCIUM 64MG DELAYED REL TAB PO SCH ×2 (08:49→21:13)
[2022-03-29] MEDS: CHOLECALCIFEROL 1,000 UNITS 25 MCG TAB PO SCH (08:50)
[2022-03-29] MEDS: LANTUS PER UNIT CHARGE SQ SCH (08:52)
[2022-03-29] MEDS ORDERED: ALBUMIN 25% 100 mL 25 GM/100 ML VIAL IV ONE ×2 (11:15→13:15)
--- NOTE | 2022-03-29 12:15 | Nephrology Progress Note ---
Date of Service March 29, 2022 Assessment & Plan (1) BLAIRE (acute kidney injury): Plan: 61-year-old female admitted to the hospital after she fell from her bed and was found to have left sided rib fracture as well as bilateral significant pulmonary embolism.Nephrology consulted for acute renal failure in a patient with liver cirrhosis with newly diagnosed bilateral pulmonary emboli. Baseline creatinine 1.1. Her renl function fluctuate with Volume status,, likely component of abdominal compartment syndrome. Did not get para yesterday, due today (2) Hepatic cirrhosis: Plan: US paracentesis w cell ct and fluid analysis without evidence of SBP and SAAG >1.1 -As per Gastro recs Admission and Anticipated Discharge Date Admission Date: March 17, 2022 Subjective In Discomfort, abdomnal distention getting worse, In mild distress Review of Systems Review of Systems: C/O abdominal pain and discomfort NO abdominal pain Bilateral pedal edema 3-4+ Physical Exam Physical Exam: Middle-aged white female who is obese. She is awake, alert, and oriented and was able to give me a detailed account of her medical history and problem. HEENT: Mucous membrane is moist. NECK: Supple and obese neck. Could not appreciate JVD. CHEST: Bilateral decreased breath sound. Poor inspiratory effort limiting the quality of exam. CARDIOVASCULAR: S1 and S2 regular. ABDOMEN: Soft, distended with significant ascites. EXTREMITIES: Bilaterally 3-4+ edema, pitting type and very densely edematous. NEUROLOGIC: Normal speech. Awake, alert, oriented x3. She does not seem confused at this time and was able to give a detailed account of her medical history. Normal speech. Results & Data ([facility]) Vital Signs (Past 12 Hours) Vital Signs Temp Pulse Pulse Resp BP Pulse Ox O2 Del Method 03/29/22 11:01 36.8 C 97 H 19 117/75 91 Room Air 03/29/22 07:41 Nasal Cannula 03/29/22 07:15 36.6 C 91 H 20 124/84 91 Room Air 03/29/22 07:00 87 03/29/22 03:00 36.7 C 89 18 127/77 90 Room Air O2 Flow Rate 03/29/22 11:01 03/29/22 07:41 2 03/29/22 07:15 03/29/22 07:00 03/29/22 03:00 Laboratory Results 03/28/22 06:14 03/28/22 06:14
--- NOTE | 2022-03-29 13:54 | Hospitalist Progress Note ---
Date of Service March 29, 2022 Assessment & Plan (1) Saddle pulmonary embolus: Plan: Acute Saddle pulmonary embolism Acute DVT of Left LE Hx of COVID infection in Jul was vaccinated in 2020 x 2 doses --CT Chest:Extensive bilateral pulmonary emboli including a saddle embolus within the main pulmonary arteries. No evidence for right-sided heart strain at this time. Acute left anterior third through fifth rib fractures. No pneumothorax. Additional subacute to chronic fractures within the chest and abdomen as described above. Cirrhotic liver with splenomegaly and a large amount of ascites. This has slightly progressed. Moderate to severe body wall edema again noted. Mildly enlarged anterior diaphragmatic and periportal lymph nodes remain unchanged. --ECHO: Aortic valve sclerosis mild, without significant aortic valvular sage nosis. Left ventricle cavity is small. Moderate concentric LVH. Left ventricle wall motion is normal. Left ventricle is hyperdynamic. EF greater than 70%. Neck: Sign present with hypokinesis of the right ventricular apex with sparing of the basilar structures and mild apical dilatation consistent with acute pulmonary embolus. Trace tricuspid insufficiency is present --Venous Doppler:Acute appearing occlusive thrombus in the left lower extremity superficial femoral and popliteal veins. Soft tissue edema in the bilateral calf. No definite thrombus of the calf vessels despite limited evaluation. If any clinical deterioration, then tPA will be pursued Appreciate pulmonology input Supplemental oxygen as needed Continue IV Heparin >>Transitioned to Eliquis Heparin is on hold since 2 AM for possible paracentesis today Nocturnal Hypoxia Likely ANEL/OHS Nocturnal Oximetry completed May also need 2 step prior to discharge Will need outpatient sleep study Denies any shortness of breath at rest (2) Hepatic cirrhosis: Plan: - Nonalcoholic, hepatitis panel was conducted 01/27/2022 as reviewed in outpatient epic and is negative for hep A, B, C - MELD score 15 today, previously 13 - Scheduled with Dr. Mace as outpatient with hepatology on 05/05/22: In end of December pt was placed on lasix 20 mg daily and spironolactone 50 mg daily, lasix was increased to 40 mg daily on 02/11, now she is up to lasix 40 mg daily and spironolactone 100 mg daily. -Volume overload status --S/P Paracentesis:aspiration of 3 liters of ascites, No SBP --Continue diuretics as per Nephrology --Appreciate GI input --Fluid restriction, Low Na diet --Needs follow up with GI upon discharge Repeat abd USD: Moderate ascites is seen in all 4 quadrants. S/P repeat Paracentesis on 03/26/22 IV diuresis as per Nephrology Abdomen remains distended and will need another paracentesis Will need albumin before and after paracentesis Likely to need continuous drainage of acetic fluid with a Pleurx catheter in place-we will discussed with the ux developer designer More abdominal distention and more symptoms of shortness of breath and pain Discussed with the radiologist and will have urgent ultrasound and paracentesis of 5 L of fluid if possible today Constipation Had bowel movements but repeat KUB still showed moderate stool Continue bowel regimen Encourage to ambulate (3) Diabetes: Plan: -Last A1c was 9.1 on 01/13/2022 -Holding metformin Continue Insulin (4) Asthma: Plan: -Continue albuterol sulfate (5) Rib fractures: Plan: Left-sided rib fractures Nondisplaced Secondary to fall Continue incentive spirometer Pain control (6) BLAIRE (acute kidney injury): Plan: BLAIRE Cr:1.78>1.5>1.3>1.5 Received Contrast In setting of volume overload Hyperkalemia Appreciate nephrology input Monitor renal function Monitor K levels as well Has been on Bumex-creatinine remains stable at 1.51 (7) Fall: Plan: Mechanical fall Fall precautions PT/OT Abnormal UA Ruled out UTI Urine Cx Mixed ashley Empirically received Rocephin for 3 days DVT Px: Eliquis--Held IV heparin for now CODE STATUS: Full code Disposition Rehab as able (8) UTI (urinary tract infection): Admission and Anticipated Discharge Date Admission Date: March 17, 2022 Subjective 03/27/2022 The patient was seen and examined in telemetry unit She complains to have pain in the right upper quadrant without nausea or vomiting Her abdomen is distended and she feels bloated Denies any shortness of breath at rest 03/28/2022 The patient was seen and examined in telemetry unit She has been stable with some complaints of pain over the right upper quadrant Abdomen remains distended and bloated Denies any shortness of breath at rest. Denies any nausea and or vomiting 03/29/2022 The patient was seen and examined in telemetry unit She has been complaining of more abdominal distention today with more pain and occasional shortness of breath with proper position or sitting Denies any fever and or chills Denies any chest pain and/or palpitation Review of Systems Review of Systems: All systems reviewed and are unremarkable except as noted below Gastrointestinal: Abdominal distention with discomfort in right upper quadrant Neurologic: Week Physical Exam Physical Exam: Lying in bed comfortably Constitutional: well developed, well nourished and + obese; not ill appearing Eyes: PERRL, conjunctivae normal, anicteric sclerae ENMT: external ear and nose normal, oropharynx normal Neck: trachea midline, no thyromegaly Respiratory: + respiratory distress (Minimal distress at rest) Auscultation: + diminished lung sounds and + crackles (Occasional crackles at the bases) Cardiovascular: Rate/Rhythm: regular rate, regular rhythm and + tachycardic Heart Sounds: normal S1, normal S2 and + murmur Extremities: + edema (2+ ed corina bilaterally) Gastrointestinal (Abdomen): Inspection/Auscultation: + abdomen distended; + abnormal bowel sounds (Decreased) Percussion/Palpation: + abdomen tender (Right upper quadrant); + abdomen not soft (A little firm) Musculoskeletal: No acute arthritis in any joint Neurologic: normal touch/pain/proprioception and moves all extremities; not confused Generally very weak and lethargic Results & Data Results & Data ([facility]) Vital Signs (Past 12 Hours) Vital Signs Temp Pulse Pulse Resp BP Pulse Ox O2 Del Method 03/29/22 11:01 36.8 C 97 H 19 117/75 91 Room Air 03/29/22 07:41 Nasal Cannula 03/29/22 07:15 36.6 C 91 H 20 124/84 91 Room Air 03/29/22 07:00 87 03/29/22 03:00 36.7 C 89 18 127/77 90 Room Air O2 Flow Rate 03/29/22 11:01 03/29/22 07:41 2 03/29/22 07:15 03/29/22 07:00 03/29/22 03:00 Medications Administered Current Inpatient Medications Albuterol (Albuterol Hfa 8 Gm Inhaler) 2 puffs INH Q4 PRN PRN Reason: Shortness Of Breath Or Wheezing Stop: 04/16/22 14:35 Apixaban (Apixaban 5 Mg Tablet) 10 mg PO BID [facility] Last Admin: 03/25/22 07:50 Dose: 10 mg Apixaban (Apixaban 5 Mg Tablet) 5 mg PO BID [facility] Stop: 04/27/22 08:59 Bisacodyl (Bisacodyl 10 Mg Supp) 10 mg [place] DAILY PRN PRN Reason: Constipation Stop: 04/22/22 12:25 Dextrose (Dextrose 50% 50 Ml Syringe) 25 - 50 ml IV UD PRN; Protocol PRN Reason: Hypoglycemia Protocol Stop: 04/16/22 14:35 Docusate Sodium (Docusate Sodium 100 Mg Cap) 100 mg PO BID [facility] Stop: 04/23/22 20:59 Last Admin: 03/29/22 08:49 Dose: 100 mg Glucagon (Glucagon For Inj 1 Mg Vial) 1 mg SQ UD PRN; Protocol PRN Reason: Hypoglycemia Protocol Stop: 04/16/22 14:35 Glucose (Glucose 40% Gel 15 Gm Tube) 15 - 30 gm PO UD PRN; Protocol PRN Reason: Hypoglycemia Protocol Stop: 04/16/22 14:35 Glucose (Glucose 10 Tab/Tube) 4 - 8 tab PO UD PRN; Protocol PRN Reason: Hypoglycemia Treatment Stop: 04/16/22 14:35 Heparin Sodium/Dextrose (Heparin Sodium/Dextrose) 25,000 units in 500 mls @ 0 mls/hr IV .Q0M [facility]; Protocol Stop: 04/24/22 14:14 Last Admin: 03/29/22 05:38 Dose: Not Given Bumetanide 1 mg/ Syringe 4 mls @ 4 mls/min IV Q8H [facility] Stop: 04/25/22 18:59 Last Admin: 03/29/22 11:09 Dose: 4 mls/min Albumin Human (Albumin 25% 100 Ml) 25 gm in 100 mls @ 50 mls/hr IV ONE ONE Stop: 03/29/22 15:14 Insulin Aspart (Insulin Aspart Per Unit) 0 units SC ACHS [facility] Stop: 04/16/22 14:35 Last Admin: 03/29/22 11:57 Dose: 4 units Insulin Glargine (Lantus Per Unit Charge) 10 units SQ QAM [facility] Stop: 04/17/22 08:59 Last Admin: 03/29/22 08:52 Dose: 10 units Magnesium Chloride (Magnesium Chloride W/Calcium 64mg Delayed Rel Tab) 64 mg PO BID [facility] Stop: 04/20/22 08:59 Last Admin: 03/29/22 08:49 Dose: 64 mg Miscellaneous (Carbohydrates For Hypoglycemia ) 15 - 30 gm PO UD PRN PRN Reason: Hypoglycemia Protocol Stop: 04/16/22 14:35 Miscellaneous (Remove Lidoderm Patch) 1 each N/A DAILY@2100 [facility] Stop: 04/16/22 20:59 Last Admin: 03/28/22 20:47 Dose: Not Given Nystatin (Nystatin Powder 15gm Btl) 1 appln EXT TIDM PRN PRN Reason: Affected Skin Folds Stop: 04/22/22 11:45 Last Admin: 03/25/22 07:51 Dose: 1 appln Ondansetron HCl (Ondansetron Inj 2 Mg/Ml 2 Ml Vial) 4 mg IV Q6H PRN PRN Reason: Nausea And Vomiting Stop: 04/16/22 21:37 Last Admin: 03/22/22 05:47 Dose: 4 mg Oxycodone/Acetaminophen (Oxycodone/Acetaminophen 5mg/325mg Tab) 1 tab PO Q8H PRN PRN Reason: Pain Stop: 03/31/22 14:35 Last Admin: 03/29/22 08:49 Dose: 1 tab Polyethylene Glycol (Polyethylene (Miralax) 17 Gm Pack) 17 gm PO DAILY PRN PRN Reason: Constipation Stop: 04/21/22 10:59 Sennosides (Senna 8.6 Mg Tab) 8.6 mg PO QAM PRN PRN Reason: Constipation Stop: 04/21/22 12:29 Vitamin D (Cholecalciferol 1,000 Units 25 Mcg Tab) 1,000 units PO QAM [facility] Stop: 04/17/22 08:59 Last Admin: 03/29/22 08:50 Dose: 1,000 units
--- NOTE | 2022-03-29 14:23 | Ultrasound Report ---
US abdomen limited CLINICAL HISTORY: Tense Ascites TECHNIQUE: Multiple real-time sonographic images of the right upper quadrant were obtained. Comparison: Comparison is made to ascites ultrasound 03/25/[address] abdomen pelvis 03/17/2022 FINDINGS: There is moderate ascites in the left lower quadrant and a small amount of ascites in the right upper quadrant. IMPRESSION: Moderate ascites is seen, most prominent in the left lower quadrant. Although evaluation is limited b y the mobility of the fluid, the possibility of ascites appears decreased compared to initial CT abdo men pelvis performed 03/17/2022 and likely remains somewhat decreased from 03/25/2022 as well. ACT 112: Negative or not required by law. Electronically signed by: Mihai Motley M.D. 03/29/2022 2:21 PM
[2022-03-29 21:43] LABS: Partial Thromboplastin Ratio 1.7
[2022-03-29 22:08] LABS: Partial Thromboplastin Time 47.8 Seconds (21.0-31.0)
[2022-03-30] MEDS: oxyCODONE/ACETAMINOPHEN 5mg/325mg TAB PO PRN ×3 (00:05→17:27)
[2022-03-30] MEDS: BUMETANIDE 1 MG in SYRINGE 0 ML IV SCH ×3 (03:37→18:28)
[2022-03-30] MEDS: HEPARIN SODIUM/DEXTROSE 25,000 UNITS/500 ML BAG IV SCH ×2 (05:18→19:00)
[2022-03-30 06:17] LABS: Basophils # (auto) 0.08 K/uL (0-0.2); Basophils % (auto) 1.5 %; Eosinophils # (auto) 0.15 K/uL (0-0.50); Eosinophils % (auto) 2.9 %; Hematocrit (blood only) 28.7 % (34.1-44.9); Hemoglobin 9.5 g/dl (12.0-16.0); Immature Granulocytes # (auto) 0.04 K/uL (0.00-0.02); Immature Granulocytes % (auto) 0.8 %; Lymphocytes # (auto) 0.72 K/uL (1.2-3.4); Lymphocytes % (auto) 13.8 %; Mean Corpuscular Hemoglobin 29.9 pg (25.0-34.0); Mean Corpuscular Hgb Conc 33.1 g/dL (32.0-36.0); Mean Corpuscular Volume 90.3 fL (80.0-100.0); Mean Platelet Volume 9.3 fL (9.4-12.3); Monocytes # (auto) 0.51 K/uL (0.24-0.82); Monocytes % (auto) 9.8 %; Neutrophils # (auto) 3.73 K/uL (1.4-6.5); Neutrophils % (auto) 71.2 %; Platelet Count 208 K/uL (130-400); RDW Coefficient of Variation 16.2 % (11.5-14.5); RDW Standard Deviation 53.3 fL (36.4-46.3); Red Blood Count 3.18 M/uL (3.93-5.22); White Blood Count 5.23 K/ul (4.8-10.8)
[2022-03-30 06:18] LABS: Partial Thromboplastin Ratio 1.5; Partial Thromboplastin Time 40.4 Seconds (21.0-31.0)
[2022-03-30 06:30] LABS: BUN Creatinine Ratio 30.6 (10-20); Calcium 9.3 mg/dl (8.5-10.1); Est GFR (African American) 55.1 ml/min; Est GFR (Non-African American) 47.5 ml/min; Magnesium 1.9 mg/dl (1.7-2.4); Phosphorus 3.7 mg/dl (2.5-4.9); Potassium 4.1 mmol/L (3.5-5.1)
[2022-03-30] MEDS: NYSTATIN POWDER 15GM BTL EXT PRN (09:09)
[2022-03-30] MEDS: MAGNESIUM CHLORIDE W/CALCIUM 64MG DELAYED REL TAB PO SCH ×2 (09:09→21:10)
[2022-03-30] MEDS: CHOLECALCIFEROL 1,000 UNITS 25 MCG TAB PO SCH (09:09)
[2022-03-30] MEDS: LANTUS PER UNIT CHARGE SQ SCH (09:09)
[2022-03-30] MEDS: DOCUSATE SODIUM 100 MG CAP PO SCH ×2 (09:09→21:10)
[2022-03-30] MEDS: INSULIN ASPART PER UNIT SC SCH ×4 (09:09→21:13)
--- NOTE | 2022-03-30 12:32 | Hospitalist Progress Note ---
Date of Service March 30, 2022 Assessment & Plan (1) Saddle pulmonary embolus: Plan: Acute Saddle pulmonary embolism Acute DVT of Left LE Hx of COVID infection in Jul was vaccinated in 2020 x 2 doses --CT Chest:Extensive bilateral pulmonary emboli including a saddle embolus within the main pulmonary arteries. No evidence for right-sided heart strain at this time. Acute left anterior third through fifth rib fractures. No pneumothorax. Additional subacute to chronic fractures within the chest and abdomen as described above. Cirrhotic liver with splenomegaly and a large amount of ascites. This has slightly progressed. Moderate to severe body wall edema again noted. Mildly enlarged anterior diaphragmatic and periportal lymph nodes remain unchanged. --ECHO: Aortic valve sclerosis mild, without significant aortic valvular sage nosis. Left ventricle cavity is small. Moderate concentric LVH. Left ventricle wall motion is normal. Left ventricle is hyperdynamic. EF greater than 70%. Neck: Sign present with hypokinesis of the right ventricular apex with sparing of the basilar structures and mild apical dilatation consistent with acute pulmonary embolus. Trace tricuspid insufficiency is present --Venous Doppler:Acute appearing occlusive thrombus in the left lower extremity superficial femoral and popliteal veins. Soft tissue edema in the bilateral calf. No definite thrombus of the calf vessels despite limited evaluation. If any clinical deterioration, then tPA will be pursued Appreciate pulmonology input Supplemental oxygen as needed Continue IV Heparin >>Transitioned to Eliquis Urgent ultrasound of the abdomen did not show any increase in fluid rather it showed ascites fluid to be decreased compared with that of prior Paracentesis was not done and heparin restarted Clinically a little better today with decreasing abdominal tenseness, pain or discomfort Nocturnal Hypoxia Likely ANEL/OHS Nocturnal Oximetry completed May also need 2 step prior to discharge Will need outpatient sleep study Denies any shortness of breath at rest (2) Hepatic cirrhosis: Plan: - Nonalcoholic, hepatitis panel was conducted 01/27/2022 as reviewed in outpatient epic and is negative for hep A, B, C - MELD score 15 today, previously 13 - Scheduled with Dr. Mace as outpatient with hepatology on 05/05/22: In end of December pt was placed on lasix 20 mg daily and spironolactone 50 mg daily, lasix was increased to 40 mg daily on 02/11, now she is up to lasix 40 mg daily and spironolactone 100 mg daily. -Volume overload status --S/P Paracentesis:aspiration of 3 liters of ascites, No SBP --Continue diuretics as per Nephrology --Appreciate GI input --Fluid restriction, Low Na diet --Needs follow up with GI upon discharge Repeat abd USD: Moderate ascites is seen in all 4 quadrants. S/P repeat Paracentesis on 03/26/22 IV diuresis as per Nephrology Abdomen remains distended and will need another paracentesis Will need albumin before and after paracentesis Likely to need continuous drainage of acetic fluid with a Pleurx catheter in place-we will discussed with the batch plant operator More abdominal distention and more symptoms of shortness of breath and pain We will try a repeat ultrasound tomorrow for possible paracentesis trial- discussed with GI for possible placement of Pleurx catheter Constipation Had bowel movements but repeat KUB still showed moderate stool Continue bowel regimen Encourage to ambulate (3) Diabetes: Plan: -Last A1c was 9.1 on 01/13/2022 -Holding metformin Continue Insulin (4) Asthma: Plan: -Continue albuterol sulfate (5) Rib fractures: Plan: Left-sided rib fractures Nondisplaced Secondary to fall Continue incentive spirometer Pain control (6) BLAIRE (acute kidney injury): Plan: BLAIRE Cr:1.78>1.5>1.3>1.5 Received Contrast In setting of volume overload Hyperkalemia Appreciate nephrology input Monitor renal function Monitor K levels as well Has been on Bumex-creatinine remains stable at 1.51 Creatinine has been improving (7) Fall: Plan: Mechanical fall Fall precautions PT/OT Abnormal UA Ruled out UTI Urine Cx Mixed ashley Empirically received Rocephin for 3 days DVT Px: Eliquis--Held IV heparin for now CODE STATUS: Full code Disposition Rehab as able (8) UTI (urinary tract infection): Admission and Anticipated Discharge Date Admission Date: March 17, 2022 Subjective 03/27/2022 The patient was seen and examined in telemetry unit She complains to have pain in the right upper quadrant without nausea or vomiting Her abdomen is distended and she feels bloated Denies any shortness of breath at rest 03/28/2022 The patient was seen and examined in telemetry unit She has been stable with some complaints of pain over the right upper quadrant Abdomen remains distended and bloated Denies any shortness of breath at rest. Denies any nausea and or vomiting 03/29/2022 The patient was seen and examined in telemetry unit She has been complaining of more abdominal distention today with more pain and occasional shortness of breath with proper position or sitting Denies any fever and or chills Denies any chest pain and/or palpitation 03/30/2022 The patient was seen and examined in telemetry unit Her abdomen is a little better today with decreasing tenseness and also pain/discomfort Bowel has been moving very minimal but lots of flatus Denies any shortness of breath at rest Review of Systems Review of Systems: All systems reviewed and are unremarkable except as noted below Gastrointestinal: Abdominal distention with discomfort in right upper quadrant Neurologic: Week Physical Exam Physical Exam: Lying in bed comfortably Constitutional: well developed, well nourished and + obese; not ill appearing Eyes: PERRL, conjunctivae normal, anicteric sclerae ENMT: external ear and nose normal, oropharynx normal Neck: trachea midline, no thyromegaly Respiratory: + respiratory distress (Minimal distress at rest) Auscultation: + diminished lung sounds and + crackles (Occasional crackles at the bases) Cardiovascular: Rate/Rhythm: regular rate, regular rhythm and + tachycardic Heart Sounds: normal S1, normal S2 and + murmur Extremities: + edema (2+ edema bilaterally) Gastrointestinal (Abdomen): Inspection/Auscultation: + abdomen distended; + abnormal bowel sounds (Decreased) Percussion/Palpation: + abdomen tender (Right upper quadrant); + abdomen not soft (A little firm) Musculoskeletal: No acute arthritis in any joint Neurologic: normal touch/pain/proprioception and moves all extremities; not confused Lymphatic: no cervical or axillary lymphadenopathy Results & Data Results & Data ([facility]) Vital Signs (Past 12 Hours) Vital Signs Temp Pulse Pulse Resp BP Pulse Ox O2 Del Method 03/30/22 11:19 37.1 C 99 H 20 135/78 93 Room Air 03/30/22 07:47 95 H 03/30/22 07:35 37.1 C 101 H 24 141/80 H 92 Room Air 03/30/22 03:00 36.5 C 94 H 20 123/71 91 Room Air Laboratory Results Short CBC 03/30/22 Range/Units 05:49 WBC 5.23 (4.8-10.8) K/ul Hgb 9.5 L (12.0-16.0) g/dl Hct 28.7 L (34.1-44.9) % Plt Count 208 (130-400) K/uL [facility] 03/30/22 05:49 Sodium 131 L Potassium 4.1 Chloride 93 L Carbon Dioxide 28 BUN 38 H Creatinine 1.24 H Glucose 130 H Calcium 9.3 Medications Administered Current Inpatient Medications Albuterol (Albuterol Hfa 8 Gm Inhaler) 2 puffs INH Q4 PRN PRN Reason: Shortness Of Breath Or Wheezing Stop: 04/16/22 14:35 Apixaban (Apixaban 5 Mg Tablet) 10 mg PO BID [facility] Last Admin: 03/25/22 07:50 Dose: 10 mg Apixaban (Apixaban 5 Mg Tablet) 5 mg PO BID [facility] Stop: 04/27/22 08:59 Bisacodyl (Bisacodyl 10 Mg Supp) 10 mg [place] DAILY PRN PRN Reason: Constipation Stop: 04/22/22 12:25 Dextrose (Dextrose 50% 50 Ml Syringe) 25 - 50 ml IV UD PRN; Protocol PRN Reason: Hypoglycemia Protocol Stop: 04/16/22 14:35 Docusate Sodium (Docusate Sodium 100 Mg Cap) 100 mg PO BID [facility] Stop: 04/23/22 20:59 Last Admin: 03/30/22 09:09 Dose: 100 mg Glucagon (Glucagon For Inj 1 Mg Vial) 1 mg SQ UD PRN; Protocol PRN Reason: Hypoglycemia Protocol Stop: 04/16/22 14:35 Glucose (Glucose 40% Gel 15 Gm Tube) 15 - 30 gm PO UD PRN; Protocol PRN Reason: Hypoglycemia Protocol Stop: 04/16/22 14:35 Glucose (Glucose 10 Tab/Tube) 4 - 8 tab PO UD PRN; Protocol PRN Reason: Hypoglycemia Treatment Stop: 04/16/22 14:35 Heparin Sodium/Dextrose (Heparin Sodium/Dextrose) 25,000 units in 500 mls @ 13 mls/hr IV .Q24H [facility]; Protocol Stop: 04/24/22 14:14 Last Titration: 03/30/22 10:22 Dose: 650 units/hr, 13 mls/hr Bumetanide 1 mg/ Syringe 4 mls @ 4 mls/min IV Q8H [facility] Stop: 04/25/22 18:59 Last Admin: 03/30/22 11:03 Dose: 4 mls/min Insulin Aspart (Insulin Aspart Per Unit) 0 units SC ACHS [facility] Stop: 04/16/22 14:35 Last Admin: 03/30/22 12:21 Dose: 6 units Insulin Glargine (Lantus Per Unit Charge) 10 units SQ QAM [facility] Stop: 04/17/22 08:59 Last Admin: 03/30/22 09:09 Dose: 10 units Magnesium Chloride (Magnesium Chloride W/Calcium 64mg Delayed Rel Tab) 64 mg PO BID [facility] Stop: 04/20/22 08:59 Last Admin: 03/30/22 09:09 Dose: 64 mg Miscellaneous (Carbohydrates For Hypoglycemia ) 15 - 30 gm PO UD PRN PRN Reason: Hypoglycemia Protocol Stop: 04/16/22 14:35 Miscellaneous (Remove Lidoderm Patch) 1 each N/A DAILY@2100 [facility] Stop: 04/16/22 20:59 Last Admin: 03/29/22 21:13 Dose: Not Given Nystatin (Nystatin Powder 15gm Btl) 1 appln EXT TIDM PRN PRN Reason: Affected Skin Folds Stop: 04/22/22 11:45 Last Admin: 03/30/22 09:09 Dose: 1 appln Ondansetron HCl (Ondansetron Inj 2 Mg/Ml 2 Ml Vial) 4 mg IV Q6H PRN PRN Reason: Nausea And Vomiting Stop: 04/16/22 21:37 Last Admin: 03/22/22 05:47 Dose: 4 mg Oxycodone/Acetaminophen (Oxycodone/Acetaminophen 5mg/325mg Tab) 1 tab PO Q6H PRN PRN Reason: Pain Stop: 03/31/22 14:35 Last Admin: 03/30/22 09:17 Dose: 1 tab Polyethylene Glycol (Polyethylene (Miralax) 17 Gm Pack) 17 gm PO DAILY PRN PRN Reason: Constipation Stop: 04/21/22 10:59 Sennosides (Senna 8.6 Mg Tab) 8.6 mg PO QAM PRN PRN Reason: Constipation Stop: 04/21/22 12:29 Vitamin D (Cholecalciferol 1,000 Units 25 Mcg Tab) 1,000 units PO QAM [facility] Stop: 04/17/22 08:59 Last Admin: 03/30/22 09:09 Dose: 1,000 units
[2022-03-30 17:26] LABS: Partial Thromboplastin Ratio 1.6; Partial Thromboplastin Time 42.8 Seconds (21.0-31.0)
[2022-03-31] MEDS: oxyCODONE/ACETAMINOPHEN 5mg/325mg TAB PO PRN (00:13)
[2022-03-31 01:08] LABS: Partial Thromboplastin Ratio 1.8
[2022-03-31] MEDS: BUMETANIDE 1 MG in SYRINGE 0 ML IV SCH (02:54)
[2022-03-31 05:59] LABS: Basophils # (auto) 0.07 K/uL (0-0.2); Basophils % (auto) 1.1 %; Eosinophils # (auto) 0.13 K/uL (0-0.50); Eosinophils % (auto) 2.1 %; Hematocrit (blood only) 28.8 % (34.1-44.9); Hemoglobin 9.8 g/dl (12.0-16.0); Immature Granulocytes # (auto) 0.05 K/uL (0.00-0.02); Immature Granulocytes % (auto) 0.8 %; Lymphocytes # (auto) 0.75 K/uL (1.2-3.4); Lymphocytes % (auto) 12.2 %; Mean Corpuscular Hemoglobin 30.2 pg (25.0-34.0); Mean Corpuscular Volume 88.9 fL (80.0-100.0); Mean Platelet Volume 9.3 fL (9.4-12.3); Monocytes # (auto) 0.69 K/uL (0.24-0.82); Monocytes % (auto) 11.2 %; Neutrophils # (auto) 4.46 K/uL (1.4-6.5); Neutrophils % (auto) 72.6 %; Platelet Count 230 K/uL (130-400); RDW Coefficient of Variation 16.4 % (11.5-14.5); RDW Standard Deviation 53.1 fL (36.4-46.3); Red Blood Count 3.24 M/uL (3.93-5.22); White Blood Count 6.15 K/ul (4.8-10.8)
[2022-03-31 06:19] LABS: BUN Creatinine Ratio 31.3 (10-20); Creatinine Clr Calc Pharmacy 57.9 ml/min; Est GFR (African American) 50.1 ml/min; Est GFR (Non-African American) 43.3 ml/min; Potassium 3.9 mmol/L (3.5-5.1)
[2022-03-31] MEDS ORDERED: ALBUMIN 25% 100 mL 25 GM/100 ML VIAL IV ONE (08:00)
[2022-03-31] MEDS: INSULIN ASPART PER UNIT SC SCH ×4 (08:44→20:43)
[2022-03-31] MEDS: NYSTATIN POWDER 15GM BTL EXT PRN (08:50)
[2022-03-31] MEDS: MAGNESIUM CHLORIDE W/CALCIUM 64MG DELAYED REL TAB PO SCH ×2 (08:51→20:32)
[2022-03-31] MEDS: CHOLECALCIFEROL 1,000 UNITS 25 MCG TAB PO SCH (08:51)
[2022-03-31] MEDS: DOCUSATE SODIUM 100 MG CAP PO SCH ×2 (08:51→20:31)
[2022-03-31] MEDS: LANTUS PER UNIT CHARGE SQ SCH (08:58)
--- NOTE | 2022-03-31 09:24 | Nephrology Progress Note ---
Date of Service March 31, 2022 Assessment & Plan Admission and Anticipated Discharge Date Admission Date: March 17, 2022 Subjective Assessment & Plan (1) BLAIRE (acute kidney injury): Plan: 61-year-old female admitted to the hospital after she fell from her bed and was found to have left sided rib fracture as well as bilateral significant pulmonary embolism.Nephrology consulted for acute renal failure in a patient with liver cirrhosis with newly diagnosed bilateral pulmonary emboli. Baseline creatinine 1.1. Her renal function fluctuate with Volume status,likely component of abdominal compartment syndrome. Urine output only 700--800 ml last few days despite bumex 4 iv tid and albumin. So clearly current diuresis is not enough. Add metolazone 5 mg po today ( will be monitoring na +) change to bumex 5 mg iv qid. if still no sig diuresis then do bumex drip. 2-- Hyponatremia---hypervolemic type with Cirrhosis and massive fluid overload. Subjective In Discomfort, abdominal distention++. Urine output only 700--800 ml last few days despite bumex 4 iv tid and albumin. In mild distress Review of Systems Review of Systems: C/O abdominal pain and discomfort NO abdominal pain Bilateral pedal edema Physical Exam Physical Exam: Middle-aged white female who is obese. She is awake, alert, and oriented and was able to give me a detailed account of her medical history and problem. HEENT: Mucous membrane is moist. NECK: Supple and obese neck. Could not appreciate JVD. CHEST: Bilateral decreased breath sound. Poor inspiratory effort limiting the quality of exam. CARDIOVASCULAR: S1 and S2 regular. ABDOMEN: Soft, distended with significant ascites. EXTREMITIES: Bilaterally 3+ edema, pitting type and very densely edematous. NEUROLOGIC: Normal speech. Awake, alert, oriented x3. She does not seem confused at this time and was able to give a detailed account of her medical history. Normal speech. Results & Data ([facility]) Vital Signs (Past 12 Hours) Vital Signs Temp Pulse Pulse Resp BP Pulse Ox O2 Del Method 03/31/22 08:17 88 03/31/22 07:48 36.6 C 90 18 123/70 92 03/31/22 02:57 36.7 C 90 20 128/65 91 Room Air 03/30/22 22:00 36.6 C 101 H 21 127/74 92 Room Air
--- NOTE | 2022-03-31 12:19 | Ultrasound Report ---
PROCEDURE: Ultrasound-Guided Diagnostic/Therapeutic Paracentesis CLINICAL HISTORY: Ascites MEDICATIONS: Subcutaneous Lidocaine 2%. PROCEDURE: The procedure itself was explained to the patient carefully. The patient was brought into the IR suite and a time-out was performed. The patient was positioned supine on the table. Preliminar y ultrasound of the abdomen was performed to determine a safe needle entry site. The most appropriat e approach for safe needle entry site was planned and the site for puncture was marked. The right low er quadrant was prepped and draped in the usual sterile fashion. Subcutaneous 2% lidocaine was used f or local anesthesia along the expected needle tract. Under ultrasound-guidance, an 5 [place] needle-sheath was inserted carefully into the peritoneal space towards the abdominal ascites fluid collection. The needle was removed and the sheath was conn ected to tubing and a vacuum suction device. A total of 5000 cc of serous ascites was aspirated. The sheath was removed and a sterile dressing applied. The patient tolerated the procedure well without i mmediate complications. IMPRESSION: Ultrasound-guided therapeutic paracentesis. Electronically signed by: Mihai Motley M.D. 03/31/2022 12:17 PM
[2022-03-31] MEDS: BUMETANIDE IV SCH ×3 (12:45→23:20)
[2022-03-31] MEDS: APIXABAN 5 MG TABLET PO SCH ×2 (12:48→23:19)
--- NOTE | 2022-03-31 15:22 | Hospitalist Progress Note ---
Date of Service March 31, 2022 Assessment & Plan (1) Saddle pulmonary embolus: Plan: Acute Saddle pulmonary embolism Acute DVT of Left LE Hx of COVID infection in Jul was vaccinated in 2020 x 2 doses --CT Chest:Extensive bilateral pulmonary emboli including a saddle embolus within the main pulmonary arteries. No evidence for right-sided heart strain at this time. Acute left anterior third through fifth rib fractures. No pneumothorax. Additional subacute to chronic fractures within the chest and abdomen as described above. Cirrhotic liver with splenomegaly and a large amount of ascites. This has slightly progressed. Moderate to severe body wall edema again noted. Mildly enlarged anterior diaphragmatic and periportal lymph nodes remain unchanged. --ECHO: Aortic valve sclerosis mild, without significant aortic valvular sage nosis. Left ventricle cavity is small. Moderate concentric LVH. Left ventricle wall motion is normal. Left ventricle is hyperdynamic. EF greater than 70%. Neck: Sign present with hypokinesis of the right ventricular apex with sparing of the basilar structures and mild apical dilatation consistent with acute pulmonary embolus. Trace tricuspid insufficiency is present --Venous Doppler:Acute appearing occlusive thrombus in the left lower extremity superficial femoral and popliteal veins. Soft tissue edema in the bilateral calf. No definite thrombus of the calf vessels despite limited evaluation. If any clinical deterioration, then tPA will be pursued Appreciate pulmonology input Supplemental oxygen as needed Continue IV Heparin >>Transitioned to Eliquis Heparin was on hold since 4 AM today and after the paracentesis Heparin was discontinued and Eliquis was started Nocturnal Hypoxia Likely ANEL/OHS Nocturnal Oximetry completed May also need 2 step prior to discharge Will need outpatient sleep study Denies any shortness of breath at rest (2) Hepatic cirrhosis: Plan: - Nonalcoholic, hepatitis panel was conducted 01/27/2022 as reviewed in outpatient epic and is negative for hep A, B, C - MELD score 15 today, previously 13 - Scheduled with Dr. Mace as outpatient with hepatology on 05/05/22: In end of December pt was placed on lasix 20 mg daily and spironolactone 50 mg daily, lasix was increased to 40 mg daily on 02/11, now she is up to lasix 40 mg daily and spironolactone 100 mg daily. -Volume overload status --S/P Paracentesis:aspiration of 3 liters of ascites, No SBP --Continue diuretics as per Nephrology --Appreciate GI input --Fluid restriction, Low Na diet --Needs follow up with GI upon discharge Repeat abd USD: Moderate ascites is seen in all 4 quadrants. S/P repeat Paracentesis on 03/26/22 IV diuresis as per Nephrology Abdomen remains distended and will need another paracentesis Will need albumin before and after paracentesis Likely to need continuous drainage of acetic fluid with a Pleurx catheter in place-we will discussed with the fbi investigator More abdominal distention and more symptoms of shortness of breath and pain We will try a repeat ultrasound tomorrow for possible paracentesis trial- discussed with GI for possible placement of Pleurx catheter Status post 5 L paracentesis today-received 25 g of albumin before and after the paracentesis Into discussed with the GI for possible Pleurx catheter for continuous acetic fluid drainage as she has been requiring frequent paracentesis Constipation Had bowel movements but repeat KUB still showed moderate stool Continue bowel regimen Encourage to ambulate (3) BLAIRE (acute kidney injury): Plan: BLAIRE Cr:1.78>1.5>1.3>1.5 Received Contrast In setting of volume overload Hyperkalemia Appreciate nephrology input Monitor renal function Monitor K levels as well Has been on Bumex-creatinine remains stable at 1.51 Urine output has been decreasing and creatinine is slightly up today Bumex has been increased to 5 mg IV 4 times daily and metolazone 5 mg p.o. added today If urine output is not adequate will need to go for Bumex infusion as per the licensed pesticide applicator Will monitor PRP (4) Diabetes: Plan: -Last A1c was 9.1 on 01/13/2022 -Holding metformin Continue Insulin (5) Asthma: Plan: -Continue albuterol sulfate (6) Rib fractures: Plan: Left-sided rib fractures Nondisplaced Secondary to fall Continue incentive spirometer Pain control (7) Fall: Plan: Mechanical fall Fall precautions PT/OT Abnormal UA Ruled out UTI Urine Cx Mixed ashley Empirically received Rocephin for 3 days DVT Px: Eliquis--Held IV heparin for now CODE STATUS: Full code Disposition Rehab as able (8) UTI (urinary tract infection): Admission and Anticipated Discharge Date Admission Date: March 17, 2022 Subjective 03/27/2022 The patient was seen and examined in telemetry unit She complains to have pain in the right upper quadrant without nausea or vomiting Her abdomen is distended and she feels bloated Denies any shortness of breath at rest 03/28/2022 The patient was seen and examined in telemetry unit She has been stable with some complaints of pain over the right upper quadrant Abdomen remains distended and bloated Denies any shortness of breath at rest. Denies any nausea and or vomiting 03/29/2022 The patient was seen and examined in telemetry unit She has been complaining of more abdominal distention today with more pain and occasional shortness of breath with proper position or sitting Denies any fever and or chills Denies any chest pain and/or palpitation 03/30/2022 The patient was seen and examined in telemetry unit Her abdomen is a little better today with decreasing tenseness and also pain/discomfort Bowel has been moving very minimal but lots of flatus Denies any shortness of breath at rest 03/31/2022 The patient was seen and examined in telemetry unit She has been stable with minimal abdominal discomfort but still has quite a bit distention Denies any increasing shortness of breath Urine output seems to be decreasing even with increasing dose of Bumex Review of Systems Review of Systems: All systems reviewed and are unremarkable except as noted below Neurologic: Generalized weakness Physical Exam Physical Exam: Lying in bed comfortably Constitutional: well developed, well nourished and + obese; not ill appearing Eyes: PERRL, conjunctivae normal, anicteric sclerae ENMT: external ear and nose normal, oropharynx normal Neck: trachea midline, no thyromegaly Respiratory: + respiratory distress (Minimal distress at rest) Auscultation: + diminished lung sounds and + crackles (Occasional crackles at the bases) Cardiovascular: Rate/Rhythm: regular rate, regular rhythm and + tachycardic Heart Sounds: normal S1, normal S2 and + murmur Extremities: + edema (2+ edema bilaterally) Gastrointestinal (Abdomen): Inspection/Auscultation: + abdomen distended; + abnormal bowel sounds (Decreased) Percussion/Palpation: + abdomen tender (Right upper quadrant); + abdomen not soft (A little firm) Musculoskeletal: No acute arthritis in any joint Neurologic: normal touch/pain/proprioception and moves all extremities; not confused Lymphatic: no cervical or axillary lymphadenopathy Results & Data Results & Data ([facility]) Vital Signs (Past 12 Hours) Vital Signs Temp Pulse Pulse Resp BP Pulse Ox O2 Del Method 03/31/22 11:00 36.8 C 96 H 16 117/73 93 Room Air 03/31/22 08:17 88 03/31/22 07:48 36.6 C 90 18 123/70 92 Laboratory Results Short CBC 03/31/22 Range/Units 05:28 WBC 6.15 (4.8-10.8) K/ul Hgb 9.8 L (12.0-16.0) g/dl Hct 28.8 L (34.1-44.9) % Plt Count 230 (130-400) K/uL BMP 03/31/22 05:28 Sodium 129 L Potassium 3.9 Chloride 92 L Carbon Dioxide 28 BUN 42 H Creatinine 1.34 H Glucose 144 H Calcium 9.0 Medications Administered Current Inpatient Medications Albuterol (Albuterol Hfa 8 Gm Inhaler) 2 puffs INH Q4 PRN PRN Reason: Shortness Of Breath Or Wheezing Stop: 04/16/22 14:35 Apixaban (Apixaban 5 Mg Tablet) 5 mg PO Q12H [facility] Stop: 04/30/22 12:59 Last Admin: 03/31/22 12:48 Dose: 5 mg Bisacodyl (Bisacodyl 10 Mg Supp) 10 mg OH DAILY PRN PRN Reason: Constipation Stop: 04/22/22 12:25 Dextrose (Dextrose 50% 50 Ml Syringe) 25 - 50 ml IV UD PRN; Protocol PRN Reason: Hypoglycemia Protocol Stop: 04/16/22 14:35 Docusate Sodium (Docusate Sodium 100 Mg Cap) 100 mg PO BID LETI Stop: 04/23/22 20:59 Last Admin: 03/31/22 08:51 Dose: 100 mg Glucagon (Glucagon For Inj 1 Mg Vial) 1 mg SQ UD PRN; Protocol PRN Reason: Hypoglycemia Protocol Stop: 04/16/22 14:35 Glucose (Glucose 40% Gel 15 Gm Tube) 15 - 30 gm PO UD PRN; Protocol PRN Reason: Hypoglycemia Protocol Stop: 04/16/22 14:35 Glucose (Glucose 10 Tab/Tube) 4 - 8 tab PO UD PRN; Protocol PRN Reason: Hypoglycemia Treatment Stop: 04/16/22 14:35 Bumetanide 5 mg/ Syringe 20 mls @ 4 mls/min IV Q6 LETI Stop: 04/30/22 11:59 Last Admin: 03/31/22 12:45 Dose: 4 mls/min Insulin Aspart (Insulin Aspart Per Unit) 0 units SC ACHS [facility] Stop: 04/16/22 14:35 Last Admin: 03/31/22 12:43 Dose: 3 units Insulin Glargine (Lantus Per Unit Charge) 10 units SQ QAM [facility] Stop: 04/17/22 08:59 Last Admin: 03/31/22 08:58 Dose: 10 units Magnesium Chloride (Magnesium Chloride W/Calcium 64mg Delayed Rel Tab) 64 mg PO BID [facility] Stop: 04/20/22 08:59 Last Admin: 03/31/22 08:51 Dose: 64 mg Miscellaneous (Carbohydrates For Hypoglycemia ) 15 - 30 gm PO UD PRN PRN Reason: Hypoglycemia Protocol Stop: 04/16/22 14:35 Miscellaneous (Remove Lidoderm Patch) 1 each N/A DAILY@2100 [facility] Stop: 04/16/22 20:59 Last Admin: 03/30/22 21:12 Dose: Not Given Nystatin (Nystatin Powder 15gm Btl) 1 appln EXT TIDM PRN PRN Reason: Affected Skin Folds Stop: 04/22/22 11:45 Last Admin: 03/31/22 08:50 Dose: 1 appln Ondansetron HCl (Ondansetron Inj 2 Mg/Ml 2 Ml Vial) 4 mg IV Q6H PRN PRN Reason: Nausea And Vomiting Stop: 04/16/22 21:37 Last Admin: 03/22/22 05:47 Dose: 4 mg Polyethylene Glycol (Polyethylene (Miralax) 17 Gm Pack) 17 gm PO DAILY PRN PRN Reason: Constipation Stop: 04/21/22 10:59 Sennosides (Senna 8.6 Mg Tab) 8.6 mg PO QAM PRN PRN Reason: Constipation Stop: 04/21/22 12:29 Vitamin D (Cholecalciferol 1,000 Units 25 Mcg Tab) 1,000 units PO QAM [facility] Stop: 04/17/22 08:59 Last Admin: 03/31/22 08:51 Dose: 1,000 units
[2022-03-31] MEDS: traMADol HCL 50 MG TABLET PO PRN (20:31)
[2022-04-01] MEDS: BUMETANIDE IV SCH ×3 (06:13→17:44)
[2022-04-01] MEDS: CHOLECALCIFEROL 1,000 UNITS 25 MCG TAB PO SCH (09:01)
[2022-04-01] MEDS: INSULIN ASPART PER UNIT SC SCH ×4 (09:01→20:04)
[2022-04-01] MEDS: LANTUS PER UNIT CHARGE SQ SCH (09:01)
[2022-04-01] MEDS: DOCUSATE SODIUM 100 MG CAP PO SCH ×2 (09:02→19:58)
[2022-04-01] MEDS: MAGNESIUM CHLORIDE W/CALCIUM 64MG DELAYED REL TAB PO SCH ×2 (09:02→19:57)
[2022-04-01] MEDS ORDERED: metOLazone 5 MG TABLET PO ONE (11:45)
--- NOTE | 2022-04-01 11:45 | Nephrology Progress Note ---
Date of Service April 01, 2022 Assessment & Plan Admission and Anticipated Discharge Date Admission Date: March 17, 2022 Subjective Assessment & Plan (1) BLAIRE (acute kidney injury): Plan: 61-year-old female admitted to the hospital after she fell from her bed and was found to have left sided rib fracture as well as bilateral significant pulmonary embolism.Nephrology consulted for acute renal failure in a patient with liver cirrhosis with newly diagnosed bilateral pulmonary emboli. Baseline creatinine 1.1. Her renal function fluctuate with Volume status,likely component of abdominal compartment syndrome. Urine output was 2300 ml yesterday--was only 700--800 ml last few days prior despite bumex 4 iv tid and albumin. So clearly current diuresis is not enough. Add metolazone 5 mg po today also ( will be monitoring na +) change to bumex 5 mg iv qid. labs CMP daily. 2-- Hyponatremia---hypervolemic type with Cirrhosis and massive fluid overload. Subjective In Discomfort, abdominal distention++. Urine output was 2300 ml yesterday--large increase. In mild distress Review of Systems Review of Systems: C/O abdominal pain and discomfort NO abdominal pain Bilateral pedal edema Physical Exam Physical Exam: Middle-aged white female who is obese. She is awake, alert, and oriented and was able to give me a detailed account of her medical history and problem. HEENT: Mucous membrane is moist. NECK: Supple and obese neck. Could not appreciate JVD. CHEST: Bilateral decreased breath sound. Poor inspiratory effort limiting the quality of exam. CARDIOVASCULAR: S1 and S2 regular. ABDOMEN: Soft, distended with significant ascites. EXTREMITIES: Bilaterally 3+ edema, pitting type and very densely edematous. NEUROLOGIC: Normal speech. Awake, alert, oriented x3. She does not seem confused at this time and was able to give a detailed account of her medical history. Normal speech. Results & Data ([facility]) Vital Signs (Past 12 Hours) Vital Signs Temp Pulse Pulse Resp BP BP Pulse Ox 04/01/22 11:18 36.7 C 91 H 19 105/68 95 04/01/22 07:30 83 04/01/22 07:19 36.5 C 83 18 103/61 93 04/01/22 03:00 36.5 C 80 20 115/60 93 O2 Del Method 04/01/22 11:18 Room Air 04/01/22 07:30 04/01/22 07:19 Room Air 04/01/22 03:00 Room Air
[2022-04-01] MEDS: APIXABAN 5 MG TABLET PO SCH (12:19)
--- NOTE | 2022-04-01 16:13 | Hospitalist Progress Note ---
Date of Service April 01, 2022 Assessment & Plan (1) Saddle pulmonary embolus: (2) Hepatic cirrhosis: (3) BLAIRE (acute kidney injury): (4) Diabetes: (5) Asthma: (6) Rib fractures: (7) Fall: (8) UTI (urinary tract infection): Plan: per Dr. Salinas's notes with addendum: (1) Saddle pulmonary embolus: Plan: Acute Saddle pulmonary embolism Acute DVT of Left LE Hx of COVID infection in Jul was vaccinated in 2020 x 2 doses --CT Chest:Extensive bilateral pulmonary emboli including a saddle embolus within the main pulmonary arteries. No evidence for right-sided heart strain at this time. Acute left anterior third through fifth rib fractures. No pneumothorax. Additional subacute to chronic fractures within the chest and abdomen as described above. Cirrhotic liver with splenomegaly and a large amount of ascites. This has slightly progressed. Moderate to severe body wall edema again noted. Mildly enlarged anterior diaphragmatic and periportal lymph nodes remain unchanged. --ECHO:Aortic valve sclerosis mild, without significant aortic valvular stenosis. Left ventricle cavity is small. Moderate concentric LVH. Left ventricle wall motion is normal. Left ventricle is hyperdynamic. EF greater than 70%. Neck: Sign present with hypokinesis of the right ventricular apex with sparing of the basilar structures and mild apical dilatation consistent with acute pulmonary embolus. Trace tricuspid insufficiency is present --Venous Doppler:Acute appearing occlusive thrombus in the left lower extremity superficial femoral and popliteal veins. Soft tissue edema in the bilateral calf. No definite thrombus of the calf vessels despite limited evaluation. If any clinical deterioration, then tPA will be pursued Appreciate pulmonology input Supplemental oxygen as needed Continue IV Heparin >>Transitioned to Eliquis Heparin was on hold since 4 AM today and after the paracentesis Heparin was discontinued and Eliquis was started 04/01 stable on room air now on Eliquis Nocturnal Hypoxia Likely ANEL/OHS Nocturnal Oximetry completed May also need 2 step prior to discharge Will need outpatient sleep study Denies any shortness of breath at rest (2) Hepatic cirrhosis: Plan: - Nonalcoholic, hepatitis panel was conducted 01/27/2022 as reviewed in outpatient epic and is negative for hep A, B, C - MELD score 15 today, previously 13 - Scheduled with Dr. Mace as outpatient with hepatology on 05/05/22: In end of December pt was placed on lasix 20 mg daily and spironolactone 50 mg daily, lasix was increased to 40 mg daily on 02/11, now she is up to lasix 40 mg daily and spironolactone 100 mg daily. -Volume overload status --S/P Paracentesis:aspiration of 3 liters of ascites, No SBP --Continue diuretics as per Nephrology --Appreciate GI input --Fluid restriction, Low Na diet --Needs follow up with GI upon discharge Repeat abd USD:Moderate ascites is seen in all 4 quadrants. S/P repeat Paracentesis on 03/26/22 IV diuresis as per Nephrology Abdomen remains distended and will need another paracentesis Will need albumin before and after paracentesis Likely to need continuous drainage of acetic fluid with a Pleurx catheter in place-we will discussed with the slab inspector More abdominal distention and more symptoms of shortness of breath and pain We will try a repeat ultrasound tomorrow for possible paracentesis trial- discussed with GI for possible placement of Pleurx catheter Status post 5 L paracentesis today-received 25 g of albumin before and after the paracentesis Into discussed with the GI for possible Pleurx catheter for continuous acetic fluid drainage as she has been requiring frequent paracentesis 04/01 currently on IV Bumex and Metolazone Constipation Had bowel movements but repeat KUB still showed moderate stool Continue bowel regimen Encourage to ambulate (3) BLAIRE (acute kidney injury): Plan: BLAIRE Cr:1.78>1.5>1.3>1.5 Received Contrast In setting of volume overload Hyperkalemia Appreciate nephrology input Monitor renal function Monitor K levels as well Has been on Bumex-creatinine remains stable at 1.51 Urine output has been decreasing and creatinine is slightly up today Bumex has been increased to 5 mg IV 4 times daily and metolazone 5 mg p.o. added today If urine output is not adequate will need to go for Bumex infusion as per the automatic serging machine operator Will monitor PRP 04/01 crea improving from 1.5 now 1.3 (4) Diabetes: Plan: -Last A1c was 9.1 on 01/13/2022 -Holding metformin Continue Insulin (5) Asthma: Plan: -Continue albuterol sulfate (6) Rib fractures: Plan: Left-sided rib fractures Nondisplaced Secondary to fall Continue incentive spirometer Pain control (7) Fall: Plan: Mechanical fall Fall precautions PT/OT Abnormal UA Ruled out UTI Urine Cx Mixed ashley Empirically received Rocephin for 3 days DVT Px: Eliquis CODE STATUS: Full code Disposition Rehab when medically stable Admission and Anticipated Discharge Date Admission Date: March 17, 2022 Subjective ff up for PE, Liver cirrhosis, etc seen resting in bed, comfortable states she feels improved compared to yesterday less abdominal distention, no pain no chest pain, dyspnea, palpitations, dizziness no other symptoms Review of Systems Review of Systems: all noted and negative except for above Physical Exam Physical Exam: General- oriented x 3, not in distress, speaks in sentences with no effort or accessory muscle use Eyes- anicteric Neck- no JVD Lungs- clear breath sounds bilaterally, no rales/wheezes Heart- normal rate, regular rhythm; no murmurs Abdomen- normal bowel sounds, nondistended, soft, nontender Extremities- no pretibial edema, no calf tenderness Neuro- alert, oriented x 3; no gross focal neurologic deficits Skin- warm & dry Results & Data Results & Data ([facility]) Vital Signs (Past 12 Hours) Vital Signs Temp Pulse Pulse Resp BP BP Pulse Ox 04/01/22 15:13 36.7 C 97 H 19 139/78 95 04/01/22 11:18 36.7 C 91 H 19 105/68 95 04/01/22 07:30 83 04/01/22 07:19 36.5 C 83 18 103/61 93 O2 Del Method 04/01/22 15:13 Room Air 04/01/22 11:18 Room Air 04/01/22 07:30 04/01/22 07:19 Room Air all noted and reviewed including below
[2022-04-01] MEDS: HEPARIN SODIUM/DEXTROSE 25,000 UNITS/500 ML BAG IV SCH (19:29)
[2022-04-01] MEDS: traMADol HCL 50 MG TABLET PO PRN (19:56)
[2022-04-02] MEDS: APIXABAN 5 MG TABLET PO SCH ×3 (00:35→23:59)
[2022-04-02] MEDS: BUMETANIDE IV SCH ×5 (00:35→23:59)
[2022-04-02 06:30] LABS: Albumin Globulin Ratio 1.2 (0.9-2); BUN Creatinine Ratio 35.9 (10-20); Bilirubin,Total 0.8 mg/dl (0.2-1.0); Calcium 8.6 mg/dl (8.5-10.1); Creatinine Clr Calc Pharmacy 73.6 ml/min; Est GFR (African American) 68.9 ml/min; Est GFR (Non-African American) 59.5 ml/min; Globulin 2.5 gm/dl (2.5-4.0); Total Protein 5.5 gm/dl (6.0-8.3)
[2022-04-02] MEDS: CHOLECALCIFEROL 1,000 UNITS 25 MCG TAB PO SCH (07:46)
[2022-04-02] MEDS: MAGNESIUM CHLORIDE W/CALCIUM 64MG DELAYED REL TAB PO SCH ×2 (07:47→20:08)
[2022-04-02] MEDS: DOCUSATE SODIUM 100 MG CAP PO SCH ×2 (07:47→20:09)
[2022-04-02] MEDS: INSULIN ASPART PER UNIT SC SCH ×4 (07:51→20:36)
[2022-04-02] MEDS: LANTUS PER UNIT CHARGE SQ SCH (07:51)
[2022-04-02] MEDS ORDERED: POTASSIUM CHLORIDE CRTAB 20 MEQ TABCR PO STA (08:40)
--- NOTE | 2022-04-02 11:03 | Nephrology Progress Note ---
Date of Service April 02, 2022 Assessment & Plan Admission and Anticipated Discharge Date Admission Date: March 17, 2022 Subjective Assessment & Plan (1) BLAIRE (acute kidney injury): Plan: 61-year-old female admitted to the hospital after she fell from her bed and was found to have left sided rib fracture as well as bilateral significant pulmonary embolism.Nephrology consulted for acute renal failure in a patient with liver cirrhosis with newly diagnosed bilateral pulmonary emboli. Baseline creatinine 1.1. Her renal function fluctuate with Volume status,likely component of abdominal compartment syndrome. Urine output was 2900 ml yesterday with adding Metolazone. was only 700--800 ml before despite bumex 4 iv tid and albumin. na and creat both improved with this extra diuresis so will continue daily metolazone Continue bumex 5 mg iv qid. labs CMP daily. K is low at 3 with metolazone. So will give kcl 40 bid. may need even more 2-- Hyponatremia---hypervolemic type with Cirrhosis and massive fluid overload. Subjective In Discomfort, abdominal distention++. Urine output was 2900 ml yesterday In mild distress Review of Systems Review of Systems: C/O abdominal pain and discomfort NO abdominal pain Bilateral pedal edema Physical Exam Physical Exam: Middle-aged white female who is obese. She is awake, alert, and oriented and was able to give me a detailed account of her medical history and problem. HEENT: Mucous membrane is moist. NECK: Supple and obese neck. Could not appreciate JVD. CHEST: Bilateral decreased breath sound. Poor inspiratory effort limiting the quality of exam. CARDIOVASCULAR: S1 and S2 regular. ABDOMEN: Soft, distended with significant ascites. EXTREMITIES: Bilaterally 3+ edema, pitting type and very densely edematous. NEUROLOGIC: Normal speech. Awake, alert, oriented x3. She does not seem confused at this time and was able to give a detailed account of her medical history. Normal speech. Results & Data ([facility]) Vital Signs (Past 12 Hours) Vital Signs Temp Pulse Pulse Resp BP Pulse Ox O2 Del Method 04/02/22 11:00 36.8 C 91 H 16 108/62 94 Room Air 04/02/22 08:00 84 04/02/22 07:00 36.7 C 90 18 125/75 92 Room Air 04/02/22 00:00 86 04/02/22 03:00 36.8 C 87 16 121/65 94 Room Air
[2022-04-02] MEDS: POTASSIUM CHLORIDE CRTAB 20 MEQ TABCR PO SCH ×2 (11:28→20:08)
[2022-04-02] MEDS: metOLazone 5 MG TABLET PO SCH (11:35)
[2022-04-02] MEDS: ONDANSETRON INJ 2 MG/ML 2 ML VIAL IV PRN (11:35)
--- NOTE | 2022-04-02 19:14 | Hospitalist Progress Note ---
Date of Service April 02, 2022 Assessment & Plan Admission and Anticipated Discharge Date Admission Date: March 17, 2022 Results & Data Results & Data ([facility]) Vital Signs (Past 12 Hours) Vital Signs Temp Pulse Pulse Resp BP Pulse Ox O2 Del Method 04/02/22 19:00 36.6 C 90 18 112/68 92 Room Air 04/02/22 16:00 93 H 04/02/22 15:30 37.1 C 60 18 103/60 92 Room Air 04/02/22 11:00 36.8 C 91 H 16 108/62 94 Room Air 04/02/22 08:00 84
[2022-04-02] MEDS: NYSTATIN POWDER 15GM BTL EXT PRN (20:11)
[2022-04-03] MEDS: BUMETANIDE IV SCH ×3 (05:58→17:09)
[2022-04-03 06:35] LABS: Albumin Globulin Ratio 1.1 (0.9-2); BUN Creatinine Ratio 32.5 (10-20); Bilirubin,Total 1.2 mg/dl (0.2-1.0); Calcium 8.6 mg/dl (8.5-10.1); Creatinine Clr Calc Pharmacy 65.8 ml/min; Est GFR (Non-African American) 52.6 ml/min; Globulin 2.8 gm/dl (2.5-4.0); Potassium 3.3 mmol/L (3.5-5.1); Total Protein 5.8 gm/dl (6.0-8.3)
[2022-04-03] MEDS: DOCUSATE SODIUM 100 MG CAP PO SCH ×2 (08:35→20:32)
[2022-04-03] MEDS: CHOLECALCIFEROL 1,000 UNITS 25 MCG TAB PO SCH (08:35)
[2022-04-03] MEDS: MAGNESIUM CHLORIDE W/CALCIUM 64MG DELAYED REL TAB PO SCH ×2 (08:35→20:31)
[2022-04-03] MEDS: POTASSIUM CHLORIDE CRTAB 20 MEQ TABCR PO SCH ×3 (08:35→20:29)
[2022-04-03] MEDS: metOLazone 5 MG TABLET PO SCH (08:35)
[2022-04-03] MEDS: INSULIN ASPART PER UNIT SC SCH ×4 (09:15→20:44)
[2022-04-03] MEDS: LANTUS PER UNIT CHARGE SQ SCH (09:15)
--- NOTE | 2022-04-03 10:36 | Nephrology Progress Note ---
Date of Service April 03, 2022 Assessment & Plan Admission and Anticipated Discharge Date Admission Date: March 17, 2022 Subjective Assessment & Plan (1) BLAIRE (acute kidney injury): Plan: 61-year-old female admitted to the hospital after she fell from her bed and was found to have left sided rib fracture as well as bilateral significant pulmonary embolism.Nephrology consulted for acute renal failure in a patient with liver cirrhosis with newly diagnosed bilateral pulmonary emboli. Baseline creatinine 1.1. Her renal function fluctuate with Volume status,likely component of abdominal compartment syndrome. Urine output was 2400 ml yesterday with Bumex + Metolazone. was only 700--800 ml before despite bumex 4 iv tid and albumin. na and creat both stable with this extra diuresis so will continue daily metolazone Continue bumex 5 mg iv qid. labs CMP daily. K is low at 3.3 with metolazone. So raise kcl 40 tid. may need even more. However i dont know what the discharge plan is here as it will not be possible to fully diurese her---even as inpt with such aggressive Diuretics dosing we are barely making any headway 2-- Hyponatremia---hypervolemic type with Cirrhosis and massive fluid overload. Subjective In Discomfort, abdominal distention++. Urine output was 2900 ml yesterday In mild distress Review of Systems Review of Systems: C/O abdominal pain and discomfort NO abdominal pain Bilateral pedal edema Physical Exam Physical Exam: Middle-aged white female who is obese. She is awake, alert, and oriented and was able to give me a detailed account of her medical history and problem. HEENT: Mucous membrane is moist. NECK: Supple and obese neck. Could not appreciate JVD. CHEST: Bilateral decreased breath sound. Poor inspiratory effort limiting the quality of exam. CARDIOVASCULAR: S1 and S2 regular. ABDOMEN: Soft, distended with significant ascites. EXTREMITIES: Bilaterally 3+ edema, pitting type and very densely edematous. NEUROLOGIC: Normal speech. Awake, alert, oriented x3. She does not seem confused at this time and was able to give a detailed account of her medical history. Normal speech. Results & Data ([facility]) Vital Signs (Past 12 Hours) Vital Signs Temp Pulse Pulse Resp BP Pulse Ox O2 Del Method 04/03/22 10:06 85 04/03/22 07:40 36.8 C 91 H 18 130/65 94 Room Air 04/03/22 03:00 36.6 C 87 18 130/90 93 Room Air 04/02/22 23:00 89 04/02/22 23:00 36.9 C 86 20 120/70 90 Room Air
[2022-04-03] MEDS: APIXABAN 5 MG TABLET PO SCH (12:11)
--- NOTE | 2022-04-03 18:24 | Hospitalist Progress Note ---
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 Salinas's notes with addendum: (1) Saddle pulmonary embolus: Plan: Acute Saddle pulmonary embolism Acute DVT of Left LE Hx of COVID infection in Jul was vaccinated in 2020 x 2 doses --CT Chest:Extensive bilateral pulmonary emboli including a saddle embolus within the main pulmonary arteries. No evidence for right-sided heart strain at this time. Acute left anterior third through fifth rib fractures. No pneumothorax. Additional subacute to chronic fractures within the chest and abdomen as described above. Cirrhotic liver with splenomegaly and a large amount of ascites. This has slightly progressed. Moderate to severe body wall edema again noted. Mildly enlarged anterior diaphragmatic and periportal lymph nodes remain unchanged. --ECHO:Aortic valve sclerosis mild, without significant aortic valvular stenosis. Left ventricle cavity is small. Moderate concentric LVH. Left ventricle wall motion is normal. Left ventricle is hyperdynamic. EF greater than 70%. Neck: Sign present with hypokinesis of the right ventricular apex with sparing of the basilar structures and mild apical dilatation consistent with acute pulmonary embolus. Trace tricuspid insufficiency is present --Venous Doppler:Acute appearing occlusive thrombus in the left lower extremity superficial femoral and popliteal veins. Soft tissue edema in the bilateral calf. No definite thrombus of the calf vessels despite limited evaluation. If any clinical deterioration, then tPA will be pursued Appreciate pulmonology input Supplemental oxygen as needed Continue IV Heparin >>Transitioned to Eliquis Heparin was on hold since 4 AM today and after the paracentesis Heparin was disc ontinued and Eliquis was started 04/03 stable on room air now on Eliquis Nocturnal Hypoxia Likely ANEL/OHS Nocturnal Oximetry completed May also need 2 step prior to discharge Will need outpatient sleep study Denies any shortness of breath at rest (2) Hepatic cirrhosis: Plan: - Nonalcoholic, hepatitis panel was conducted 01/27/2022 as reviewed in outpatient epic and is negative for hep A, B, C - MELD score 15 today, previously 13 - Scheduled with Dr. Mace as outpatient with hepatology on 05/05/22: In end of December pt was placed on lasix 20 mg daily and spironolactone 50 mg daily, lasix was increased to 40 mg daily on 02/11, now she is up to lasix 40 mg daily and spironolactone 100 mg daily. -Volume overload status --S/P Paracentesis:aspiration of 3 liters of ascites, No SBP --Continue diuretics as per Nephrology --Appreciate GI input --Fluid restriction, Low Na diet --Needs follow up with GI upon discharge Repeat abd USD:Moderate ascites is seen in all 4 quadrants. S/P repeat Paracentesis on 03/26/22 IV diuresis as per Nephrology Abdomen remains distended and will need another paracentesis Will need albumin before and after paracentesis Likely to need continuous drainage of acetic fluid with a Pleurx catheter in place-we will discussed with the window treatment installer More abdominal distention and more symptoms of shortness of breath and pain We will try a repeat ultrasound tomorrow for possible paracentesis trial- discussed with GI for possible placement of Pleurx catheter Status post 5 L paracentesis today-received 25 g of albumin before and after the paracentesis Into discussed with the GI for possible Pleurx catheter for continuous acetic fluid drainage as she has been requiring frequent paracentesis 04/03 currently on IV Bumex and Metolazone Might need repeat paracentesis this weekend, will monitor closely Constipation Had bowel movements but repeat KUB still showed moderate stool Continue bowel regimen Encourage to ambulate (3) BLAIRE (acute kidney injury): Plan: BLAIRE Cr:1.78>1.5>1.3>1.5 Received Contrast In setting of volume overload Hyperkalemia Appreciate nephrology input Monitor renal function Monitor K levels as well Has been on Bumex-creatinine remains stable at 1.51 Urine output has been decreasing and creatinine is slightly up today Bumex has been increased to 5 mg IV 4 times daily and metolazone 5 mg p.o. added today If urine output is not adequate will need to go for Bumex infusion as per the looseleaf binder coverer Will monitor PRP 04/03 crea improving from 1.5 now 1.1 Multiple Wire Sawyer on board (4) Diabetes: Plan: -Last A1c was 9.1 on 01/13/2022 -Holding metformin Continue Insulin (5) Asthma: Plan: -Continue albuterol sulfate (6) Rib fractures: Plan: Left-sided rib fractures Nondisplaced Secondary to fall Continue incentive spirometer Pain control (7) Fall: Plan: Mechanical fall Fall precautions PT/OT Abnormal UA Ruled out UTI Urine Cx Mixed ashley Empirically received Rocephin for 3 days DVT Px: Eliquis CODE STATUS: Full code Disposition Rehab when medically stable Admission and Anticipated Discharge Date Admission Date: March 17, 2022 Subjective Follow-up for acute kidney injury, volume overload, liver cirrhosis with ascites, etc. Seen resting in bed, comfortable, not in distress Watching TV States she continues to feel fine overall No abdominal pain, nausea vomiting, fevers chills On symptom Review of Systems Review of Systems: all noted and negative except for above Physical Exam Physical Exam: General- oriented x 3, not in distress, speaks in sentences with no effort or accessory muscle use Eyes- anicteric Neck- no JVD Lungs- clear BS bilaterally, no rales/wheezes Heart- normal rate, regular rhythm; no murmurs Abdomen- normal bowel sounds, nondistended, soft, mildly distended secondary to ascites but no tenderness Extremities- no pretibial edema, no calf tenderness Neuro- alert, oriented x 3; no gross focal neurologic deficits Skin- warm & dry Results & Data Results & Data ([facility]) Vital Signs (Past 12 Hours) Vital Signs Temp Pulse Pulse Resp BP Pulse Ox O2 Del Method 04/03/22 15:18 93 H 04/03/22 15:10 36.8 C 89 18 115/69 94 Room Air 04/03/22 13:36 Room Air 04/03/22 11:36 36.8 C 94 H 19 112/67 97 Room Air 04/03/22 10:06 85 04/03/22 07:40 36.8 C 91 H 18 130/65 94 Room Air all noted and reviewed including below (1) Pulmonary emboli Acute cor pulmonale presence: without acute cor pulmonale Chronicity: acute Pulmonary embolism type: saddle Qualified Code(s): I26.92 - Saddle embolus of pulmonary artery without acute cor pulmonale
[2022-04-04] MEDS: BUMETANIDE IV SCH ×4 (00:18→17:06)
[2022-04-04] MEDS: APIXABAN 5 MG TABLET PO SCH ×2 (00:19→12:20)
[2022-04-04 06:51] LABS: Albumin Globulin Ratio 1.1 (0.9-2); BUN Creatinine Ratio 35.4 (10-20); Bilirubin,Total 0.9 mg/dl (0.2-1.0); Calcium 8.7 mg/dl (8.5-10.1); Creatinine Clr Calc Pharmacy 74.8 ml/min; Est GFR (African American) 72.3 ml/min; Est GFR (Non-African American) 62.4 ml/min; Globulin 2.8 gm/dl (2.5-4.0); Potassium 3.1 mmol/L (3.5-5.1); Total Protein 5.8 gm/dl (6.0-8.3)
[2022-04-04] MEDS: metOLazone 5 MG TABLET PO SCH (08:05)
[2022-04-04] MEDS: POTASSIUM CHLORIDE CRTAB 20 MEQ TABCR PO SCH ×3 (08:05→20:27)
[2022-04-04] MEDS: MAGNESIUM CHLORIDE W/CALCIUM 64MG DELAYED REL TAB PO SCH ×2 (08:05→20:26)
[2022-04-04] MEDS: CHOLECALCIFEROL 1,000 UNITS 25 MCG TAB PO SCH (08:06)
[2022-04-04] MEDS: DOCUSATE SODIUM 100 MG CAP PO SCH ×2 (08:06→19:24)
[2022-04-04] MEDS ORDERED: POTASSIUM CHLORIDE CRTAB 20 MEQ TABCR PO ONE (08:39)
[2022-04-04] MEDS: INSULIN ASPART PER UNIT SC SCH ×4 (09:04→20:28)
[2022-04-04] MEDS: LANTUS PER UNIT CHARGE SQ SCH (09:05)
--- NOTE | 2022-04-04 12:53 | Nephrology Progress Note ---
Date of Service April 04, 2022 Assessment & Plan (1) Volume overload: Plan: 61-year-old female admitted to the hospital after she fell from her bed and was found to have left sided rib fracture as well as bilateral significant pulmonary embolism.Nephrology consulted for acute renal failure in a patient with liver cirrhosis with newly diagnosed bilateral pulmonary emboli. Baseline creatinine 1.1. Multiple therapeutic paracteneses this admission, last one 03/31 for 5L. Had BLAIRE earlier this admission, now resolved; bp improved as well. Still significantly overloaded -cont bumex 40 mg IV tid and 5 mg daily metolaone -cont K 40 mEq tid >gave extr 40 mEq K dose d/t above K 3.1 -monitor for abdominal compartment syndrome but has been doing better lately (2) Hepatic cirrhosis: Plan: US paracentesis w cell ct and fluid analysis without evidence of SBP and SAAG >1.1 -As per Gastro recs Admission and Anticipated Discharge Date Admission Date: March 17, 2022 Subjective no interval events. notes slightly more abdominal distension but no abd pain. no sob or palpitations. moving bowels frequently. Review of Systems Review of Systems: All systems reviewed & are unremarkable except as noted in Subjective Physical Exam Constitutional: well developed, well nourished and cooperative obese on RA Eyes: EOM intact bilaterally ENMT: Ears: no external ear abnormality Nose: no external nose abnormality Mouth: + dry oral mucous membranes Neck: no nuchal rigidity Respiratory: normal respiratory effort (on RA) Auscultation: + diminished lung sounds Cardiovascular: Rate/Rhythm: regular rhythm and + tachycardic Extremities: + edema (3-4+ dependent but less taut than my last exam and to knees and distally) Gastrointestinal (Abdomen): Inspection/Auscultation: + abdomen distended; + abnormal bowel sounds Percussion/Palpation: abdomen soft and + ascites; abdomen nontender and no guarding Musculoskeletal: Extremities: + abnormal strength Skin: no rashes, warm and dry Neurologic: barroso, fluent speech, no tremor Psychiatric: Orientation: oriented x 3 Genitourinary: grewal present w/ ample light yellow urine Results & Data ([facility]) Vital Signs (Past 12 Hours) Vital Signs Temp Pulse Resp BP Pulse Ox O2 Del Method 04/04/22 11:28 Room Air 04/04/22 11:11 36.4 C L 84 17 124/67 96 Room Air 04/04/22 07:38 36.4 C L 84 14 131/67 95 Room Air 04/04/22 03:12 36.1 C L 85 16 130/72 95 Room Air Laboratory Results 03/31/22 05:28 04/04/22 05:51
--- NOTE | 2022-04-04 15:40 | Hospitalist Progress Note ---
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 Salinas's notes with addendum: (1) Saddle pulmonary embolus: Plan: Acute Saddle pulmonary embolism Acute DVT of Left LE Hx of COVID infection in Jul was vaccinated in 2020 x 2 doses --CT Chest:Extensive bilateral pulmonary emboli including a saddle embolus within the main pulmonary arteries. No evidence for right-sided heart strain at this time. Acute left anterior third through fifth rib fractures. No pneumothorax. Additional subacute to chronic fractures within the chest and abdomen as described above. Cirrhotic liver with splenomegaly and a large amount of ascites. This has slightly progressed. Moderate to severe body wall edema again noted. Mildly enlarged anterior diaphragmatic and periportal lymph nodes remain unchanged. --ECHO:Aortic valve sclerosis mild, without significant aortic valvular stenosis. Left ventricle cavity is small. Moderate concentric LVH. Left ventricle wall motion is normal. Left ventricle is hyperdynamic. EF greater than 70%. Neck: Sign present with hypokinesis of the right ventricular apex with sparing of the basilar structures and mild apical dilatation consistent with acute pulmonary embolus. Trace tricuspid insufficiency is present --Venous Doppler:Acute appearing occlusive thrombus in the left lower extremity superficial femoral and popliteal veins. Soft tissue edema in the bilateral calf. No definite thrombus of the calf vessels despite limited evaluation. If any clinical deterioration, then tPA will be pursued Appreciate pulmonology input Supplemental oxygen as needed Continue IV Heparin >>Transitioned to Eliquis Heparin was on hold since 4 AM today and after the paracentesis Heparin was discontinued and Eliquis was started 04/04 stable on room air now on Eliquis Nocturnal Hypoxia Likely ANEL/OHS Nocturnal Oximetry completed May also need 2 step prior to discharge Will need outpatient sleep study Denies any shortness of breath at rest (2) Hepatic cirrhosis: Plan: - Nonalcoholic, hepatitis panel was conducted 01/27/2022 as reviewed in outpatient epic and is negative for hep A, B, C - MELD score 15 today, previously 13 - Scheduled with Dr. Mace as outpatient with hepatology on 05/05/22: In end of December pt was placed on lasix 20 mg daily and spironolactone 50 mg daily, lasix was increased to 40 mg daily on 02/11, now she is up to lasix 40 mg daily and spironolactone 100 mg daily. -Volume overload status --S/P Paracentesis:aspiration of 3 liters of ascites, No SBP --Continue diuretics as per Nephrology --Appreciate GI input --Fluid restriction, Low Na diet --Needs follow up with GI upon discharge Repeat abd USD:Moderate ascites is seen in all 4 quadrants. S/P repeat Paracentesis on 03/26/22 IV diuresis as per Nephrology Abdomen remains distended and will need another paracentesis Will need albumin before and after paracentesis Likely to need continuous drainage of acetic fluid with a Pleurx catheter in place-we will discussed with the confidential investigator More abdominal distention and more symptoms of shortness of breath and pain We will try a repeat ultrasound tomorrow for possible paracentesis trial- discussed with GI for possible placement of Pleurx catheter Status post 5 L paracentesis today-received 25 g of albumin before and after the paracentesis Into discussed with the GI for possible Pleurx catheter for continuous acetic fluid drainage as she has been requiring frequent paracentesis 04/04 currently on IV Bumex and Metolazone Diuresed another 2 L yesterday Continue to monitor Nephrology service on board, appreciate recommendations Constipation Had bowel movements but repeat KUB still showed moderate stool Continue bowel regimen Encourage to ambulate (3) BLAIRE (acute kidney injury): Plan: BLAIRE Cr:1.78>1.5>1.3>1.5 Received Contrast In setting of volume overload Hyperkalemia Appreciate nephrology input Monitor renal function Monitor K levels as well Has been on Bumex-creatinine remains stable at 1.51 Urine output has been decreasing and creatinine is slightly up today Bumex has been increased to 5 mg IV 4 times daily and metolazone 5 mg p.o. added today If urine output is not adequate will need to go for Bumex infusion as per the master plumber Will monitor PRP 04/04 crea improving from 1.5 now 0.99 Lead Painter on board (4) Diabetes: Plan: -Last A1c was 9.1 on 01/13/2022 -Holding metformin Continue Insulin (5) Asthma: Plan: -Continue albuterol sulfate (6) Rib fractures: Plan: Left-sided rib fractures Nondisplaced Secondary to fall Continue incentive spirometer Pain control (7) Fall: Plan: Mechanical fall Fall precautions PT/OT Abnormal UA Ruled out UTI Urine Cx Mixed ashley Empirically received Rocephin for 3 days DVT Px: Eliquis CODE STATUS: Full code Disposition Rehab when medically stable Admission and Anticipated Discharge Date Admission Date: March 17, 2022 Subjective Follow-up for bilateral PE, volume overload, cirrhosis with ascites, etc. Seen resting in bed, sitting up, in good spirits States she feels fine overall No abdominal pain, nausea No shortness of breath, chest pain, palpitations No other symptoms Review of Systems Review of Systems: all noted and negative except for above Physical Exam Physical Exam: General- oriented x 3, not in distress, speaks in sentences with no effort or accessory muscle use Eyes- anicteric Neck- no JVD Lungs- clear breath sounds, no crackles or wheezing bilaterally Heart- normal rate, regular rhythm; no murmurs Abdomen- normal bowel sounds, nondistended, soft, minimal abdominal distention, secondary to ascites Extremities-mild pretibial edema, no calf tenderness Neuro- alert, oriented x 3; no gross focal neurologic deficits Skin- warm & dry Results & Data Results & Data ([facility]) Vital Signs (Past 12 Hours) Vital Signs Temp Pulse Resp BP Pulse Ox O2 Del Method 04/04/22 14:54 36.6 C 85 14 132/71 95 Room Air 04/04/22 11:28 Room Air 04/04/22 11:11 36.4 C L 84 17 124/67 96 Room Air 04/04/22 07:38 36.4 C L 84 14 131/67 95 Room Air all noted and reviewed including below (1) Pulmonary emboli Acute cor pulmonale presence: without acute cor pulmonale Chronicity: acute Pulmonary embolism type: saddle Qualified Code(s): I26.92 - Saddle embolus of pulmonary artery without acute cor pulmonale
[2022-04-05] MEDS: APIXABAN 5 MG TABLET PO SCH ×3 (00:11→23:58)
[2022-04-05] MEDS: LOPERAMIDE HCL 2 MG CAP PO PRN ×3 (00:11→20:53)
[2022-04-05] MEDS: BUMETANIDE IV SCH ×5 (00:12→23:47)
[2022-04-05 07:31] LABS: Albumin Globulin Ratio 1.1 (0.9-2); Albumin Level 3.2 gm/dl (3.4-5.0); BUN Creatinine Ratio 36.5 (10-20); Bilirubin,Total 0.9 mg/dl (0.2-1.0); Creatinine Clr Calc Pharmacy 77.1 ml/min; Est GFR (Non-African American) 64.7 ml/min; Globulin 2.8 gm/dl (2.5-4.0); Potassium 3.3 mmol/L (3.5-5.1)
[2022-04-05] MEDS: metOLazone 5 MG TABLET PO SCH (08:37)
[2022-04-05] MEDS: MAGNESIUM CHLORIDE W/CALCIUM 64MG DELAYED REL TAB PO SCH ×2 (08:37→20:51)
[2022-04-05] MEDS: DOCUSATE SODIUM 100 MG CAP PO SCH ×2 (08:37→20:51)
[2022-04-05] MEDS: POTASSIUM CHLORIDE CRTAB 20 MEQ TABCR PO SCH ×2 (08:37→20:51)
[2022-04-05] MEDS: CHOLECALCIFEROL 1,000 UNITS 25 MCG TAB PO SCH (08:37)
[2022-04-05] MEDS: LANTUS PER UNIT CHARGE SQ SCH (09:30)
[2022-04-05] MEDS: INSULIN ASPART PER UNIT SC SCH ×4 (09:49→20:58)
[2022-04-05] MEDS ORDERED: POTASSIUM CHLORIDE CRTAB 20 MEQ TABCR PO ONE ×2 (13:08→16:00)
[2022-04-05] MEDS ORDERED: POTASSIUM CHLORIDE CRTAB 20 MEQ TABCR PO SCH ×2 (14:00→16:00)
--- NOTE | 2022-04-05 14:22 | Nephrology Progress Note ---
Date of Service April 05, 2022 Assessment & Plan (1) Volume overload: Plan: 61-year-old female admitted to the hospital after she fell from her bed and was found to have left sided rib fracture as well as bilateral significant pulmonary embolism.Nephrology consulted for acute renal failure in a patient with liver cirrhosis with newly diagnosed bilateral pulmonary emboli. Baseline creatinine 1.1. Multiple therapeutic paracteneses this admission, last one 03/31 for 5L. Had BLAIRE earlier this admission, now resolved; bp improved as well. Still significantly overloaded -cont bumex 40 mg IV tid and 5 mg daily metolazone -increased K to 60 mEq tid and gave 40 mEq extra dose x 1 -monitor for abdominal compartment syndrome but has been doing better lately (2) Hepatic cirrhosis: Plan: US paracentesis w cell ct and fluid analysis without evidence of SBP and SAAG >1.1 -As per Gastro recs Admission and Anticipated Discharge Date Admission Date: March 17, 2022 Subjective no interval events. mildly increased abdominal tightness but no pain; frequent bm; no sob, edema a bit better Review of Systems Review of Systems: All systems reviewed & are unremarkable except as noted in Subjective Physical Exam Constitutional: well developed, well nourished and cooperative Eyes: EOM intact bilaterally ENMT: Ears: no external ear abnormality Nose: no external nose abnormality Mouth: + dry oral mucous membranes Neck: no nuchal rigidity Respiratory: normal respiratory effort (on RA) Auscultation: + diminished lung sounds Cardiovascular: Rate/Rhythm: regular rhythm and + tachycardic Extremities: + edema (2-3+ and less ? on LLE) Gastrointestinal (Abdomen): Inspection/Auscultation: + abdomen distended and normal bowel sounds Percussion/Palpation: abdomen soft and + ascites; abdomen nontender and no guarding Musculoskeletal: Extremities: + abnormal strength Skin: no rashes, warm and dry Neurologic: barroso, fluent speech, no tremor Psychiatric: Orientation: oriented x 3 Results & Data ([facility]) Vital Signs (Past 12 Hours) Vital Signs Temp Pulse Pulse Resp BP Pulse Ox O2 Del Method 04/05/22 12:04 36.6 C 90 16 112/70 96 Room Air 04/05/22 08:30 Room Air 04/05/22 08:10 36.5 C 94 H 13 119/65 94 Room Air 04/05/22 07:34 93 H 09/11/22 04:17 36.7 C 84 14 118/68 94 Room Air Laboratory Results 03/31/22 05:28 04/05/22 05:48
[2022-04-05] MEDS ORDERED: Nursing to Pharmacy Communication SCH (14:45)
--- NOTE | 2022-04-05 16:46 | Hospitalist Progress Note ---
Date of Service April 05, 2022 Assessment & Plan (1) Volume overload: Plan: (1) Saddle pulmonary embolus: Plan: Acute Saddle pulmonary embolism Acute DVT of Left LE Hx of COVID infection in Jul was vaccinated in 2020 x 2 doses --CT Chest:Extensive bilateral pulmonary emboli including a saddle embolus within the main pulmonary arteries. No evidence for right-sided heart strain at this time. Acute left anterior third through fifth rib fractures. No pneumothorax. Additional subacute to chronic fractures within the chest and abdomen as described above. Cirrhotic liver with splenomegaly and a large amount of ascites. This has slightly progressed. Moderate to severe body wall edema again noted. Mildly enlarged anterior diaphragmatic and periportal lymph nodes remain unchanged. --ECHO:Aortic valve sclerosis mild, without significant aortic valvular stenosis. Left ventricle cavity is small. Moderate concentric LVH. Left ventricle wall motion is normal. Left ventricle is hyperdynamic. EF greater than 70%. Neck: Sign present with hypokinesis of the right ventricular apex with sparing of the basilar structures and mild apical dilatation consistent with acute pulmonary embolus. Trace tricuspid insufficiency is present --Venous Doppler:Acute appearing occlusive thrombus in the left lower extremity superficial femoral and popliteal veins. Soft tissue edema in the bilateral calf. No definite thrombus of the calf vessels despite limited evaluation. If any clinical deterioration, then tPA will be pursued Appreciate pulmonology input Supplemental oxygen as needed Continue IV Heparin >>Transitioned to Eliquis Heparin was on hold since 4 AM today and after the paracentesis Heparin was discontinued and Eliquis was started 04/05 stable on room air now on Eliquis Nocturnal Hypoxia Likely ANEL/OHS Nocturnal Oximetry completed May also need 2 step prior to discharge Will need outpatient sleep study Denies any shortness of breath at rest (2) Hepatic cirrhosis: Plan: - Nonalcoholic, hepatitis panel was conducted 01/27/2022 as reviewed in outpatient epic and is negative for hep A, B, C - MELD score 15 today, previously 13 - Scheduled with Dr. Mace as outpatient with hepatology on 05/05/22: In end of December pt was placed on lasix 20 mg daily and spironolactone 50 mg daily, lasix was increased to 40 mg daily on 02/11, now she is up to lasix 40 mg daily and spironolactone 100 mg daily. -Volume overload status --S/P Paracentesis:aspiration of 3 liters of ascites, No SBP --Continue diuretics as per Nephrology --Appreciate GI input --Fluid restriction, Low Na diet --Needs follow up with GI upon discharge Repeat abd USD:Moderate ascites is seen in all 4 quadrants. S/P repeat Paracentesis on 03/26/22 IV diuresis as per Nephrology Abdomen remains distended and will need another paracentesis Will need albumin before and after paracentesis Likely to need continuous drainage of acetic fluid with a Pleurx catheter in place-we will discussed with the hyperion analyst More abdominal distention and more symptoms of shortness of breath and pain We will try a repeat ultrasound tomorrow for possible paracentesis trial- discussed with GI for possible placement of Pleurx catheter Status post 5 L paracentesis today-received 25 g of albumin before and after the paracentesis Into discussed with the GI for possible Pleurx catheter for continuous acetic fluid drainage as she has been requiring frequent paracentesis 04/05 currently on IV Bumex and Metolazone Diuresed another 3 L yesterday Continue to monitor Nephrology service on board, appreciate recommendations Diarrhea C. difficile negative Imodium as needed Clear liquid diet for now (3) BLAIRE (acute kidney injury): Plan: BLAIRE Cr:1.78>1.5>1.3>1.5 Received Contrast In setting of volume overload Hyperkalemia Appreciate nephrology input Monitor renal function Monitor K levels as well Has been on Bumex-creatinine remains stable at 1.51 Urine output has been decreasing and creatinine is slightly up today Bumex has been increased to 5 mg IV 4 times daily and metolazone 5 mg p.o. added today If urine output is not adequate will need to go for Bumex infusion as per the special warfare boat operator Will monitor PRP 04/05 crea improving from 1.5 now 0.99 Lpn Medical Assistant on board (4) Diabetes: Plan: -Last A1c was 9.1 on 01/13/2022 -Holding metformin Continue Insulin (5) Asthma: Plan: -Continue albuterol sulfate (6) Rib fractures: Plan: Left-sided rib fractures Nondisplaced Secondary to fall Continue incentive spirometer Pain control (7) Fall: Plan: Mechanical fall Fall precautions PT/OT Abnormal UA Ruled out UTI Urine Cx Mixed ashley Empirically received Rocephin for 3 days DVT Px: Eliquis CODE STATUS: Full code Disposition Rehab when medically stable Admission and Anticipated Discharge Date Admission Date: March 17, 2022 Subjective ff up for PE, volume overload, JOYCE cirrhosis, etc seen resting in bed, comfortable states she is still having some diarrhea today, less than yesterday No nausea or vomiting, abdominal pain No fevers or chills No shortness of breath, chest pain No other symptoms Review of Systems Review of Systems: all noted and negative except for above Physical Exam Physical Exam: General- oriented x 2, not in distress, speaks in sentences with no effort or accessory muscle use Eyes- anicteric Neck- no JVD Lungs- clear BS bilaterally, no crackles or wheezing Heart- normal rate, regular rhythm; no murmurs Abdomen- normal bowel sounds, nondistended, soft,mildly distended Extremities-grade 1 medial edema, no calf tenderness Neuro- alert, oriented x 3; no gross focal neurologic deficits Skin- warm & dry Results & Data Results & Data ([facility]) Vital Signs (Past 12 Hours) Vital Signs Temp Pulse Pulse Resp BP Pulse Ox O2 Del Method 04/05/22 15:27 91 H 04/05/22 14:58 36.6 C 92 H 14 117/68 96 Room Air 04/05/22 12:04 36.6 C 90 16 112/70 96 Room Air 04/05/22 08:30 Room Air 04/05/22 08:10 36.5 C 94 H 13 119/65 94 Room Air 04/05/22 07:34 93 H
[2022-04-05] MEDS: DICLOFENAC SOD 1% GEL 100 GM TUBE EXT PRN (22:26)
[2022-04-06] MEDS ORDERED: ACETAMINOPHEN 325 MG TAB PO PRN (02:28)
[2022-04-06] MEDS ORDERED: BUMETANIDE IV SCH (02:30)
[2022-04-06] MEDS: HYDROmorphone INJ 0.5 MG/0.5 ML SYR IV PRN (02:48)
[2022-04-06] MEDS: BUMETANIDE IV SCH ×3 (04:22→16:50)
[2022-04-06] MEDS: CHOLECALCIFEROL 1,000 UNITS 25 MCG TAB PO SCH (08:37)
[2022-04-06] MEDS: metOLazone 5 MG TABLET PO SCH (08:37)
[2022-04-06] MEDS: POTASSIUM CHLORIDE CRTAB 20 MEQ TABCR PO SCH ×3 (08:37→20:18)
[2022-04-06] MEDS: MAGNESIUM CHLORIDE W/CALCIUM 64MG DELAYED REL TAB PO SCH ×2 (08:38→20:19)
[2022-04-06] MEDS: DOCUSATE SODIUM 100 MG CAP PO SCH ×2 (08:38→20:17)
[2022-04-06] MEDS: LANTUS PER UNIT CHARGE SQ SCH (08:42)
[2022-04-06] MEDS: INSULIN ASPART PER UNIT SC SCH ×4 (08:42→20:17)
[2022-04-06 11:34] LABS: BUN Creatinine Ratio 32.7 (10-20); Creatinine Clr Calc Pharmacy 72.8 ml/min; Est GFR (African American) 70.6 ml/min; Est GFR (Non-African American) 60.9 ml/min; Potassium 4.1 mmol/L (3.5-5.1)
--- NOTE | 2022-04-06 12:17 | Hospitalist Progress Note ---
Date of Service April 06, 2022 Assessment & Plan (1) Volume overload: Plan: (1) Saddle pulmonary embolus: Plan: Acute Saddle pulmonary embolism Acute DVT of Left LE Hx of COVID infection in Jul was vaccinated in 2020 x 2 doses --CT Chest:Extensive bilateral pulmonary emboli including a saddle embolus within the main pulmonary arteries. No evidence for right-sided heart strain at this time. Acute left anterior third through fifth rib fractures. No pneumothorax. Additional subacute to chronic fractures within the chest and abdomen as described above. Cirrhotic liver with splenomegaly and a large amount of ascites. This has slightly progressed. Moderate to severe body wall edema again noted. Mildly enlarged anterior diaphragmatic and periportal lymph nodes remain unchanged. --ECHO:Aortic valve sclerosis mild, without significant aortic valvular stenosis. Left ventricle cavity is small. Moderate concentric LVH. Left ventricle wall motion is normal. Left ventricle is hyperdynamic. EF greater than 70%. Neck: Sign present with hypokinesis of the right ventricular apex with sparing of the basilar structures and mild apical dilatation consistent with acute pulmonary embolus. Trace tricuspid insufficiency is present --Venous Doppler:Acute appearing occlusive thrombus in the left lower extremity superficial femoral and popliteal veins. Soft tissue edema in the bilateral calf. No definite thrombus of the calf vessels despite limited evaluation. If any clinical deterioration, then tPA will be pursued Appreciate pulmonology input Supplemental oxygen as needed Continue IV Heparin >>Transitioned to Eliquis Heparin was on hold since 4 AM today and after the paracentesis Heparin was discontinued and Eliquis was started 04/06 stable on room air now on Eliquis Nocturnal Hypoxia Likely ANEL/OHS Nocturnal Oximetry completed May also need 2 step prior to discharge Will need outpatient sleep study Denies any shortness of breath at rest (2) Hepatic cirrhosis: Plan: - Nonalcoholic, hepatitis panel was conducted 01/27/2022 as reviewed in outpatient epic and is negative for hep A, B, C - MELD score 15 today, previously 13 - Scheduled with Dr. Mace as outpatient with hepatology on 05/05/22: In end of December pt was placed on lasix 20 mg daily and spironolactone 50 mg daily, lasix was increased to 40 mg daily on 02/11, now she is up to lasix 40 mg daily and spironolactone 100 mg daily. -Volume overload status --S/P Paracentesis:aspiration of 3 liters of ascites, No SBP --Continue diuretics as per Nephrology --Appreciate GI input --Fluid restriction, Low Na diet --Needs follow up with GI upon discharge Repeat abd USD:Moderate ascites is seen in all 4 quadrants. S/P repeat Paracentesis on 03/26/22 IV diuresis as per Nephrology Abdomen remains distended and will need another paracentesis Will need albumin before and after paracentesis Likely to need continuous drainage of acetic fluid with a Pleurx catheter in place-we will discussed with the bread icer More abdominal distention and more symptoms of shortness of breath and pain We will try a repeat ultrasound tomorrow for possible paracentesis trial- discussed with GI for possible placement of Pleurx catheter Status post 5 L paracentesis today-received 25 g of albumin before and after the paracentesis Into discussed with the GI for possible Pleurx catheter for continuous acetic fluid drainage as she has been requiring frequent paracentesis 04/06 currently on IV Bumex and Metolazone Diuresed another 1.8 L yesterday Continue to monitor Nephrology service on board, appreciate recommendations Diarrhea C. difficile negative Imodium as needed Clear liquid diet for now (3) BLAIRE (acute kidney injury): Plan: BLAIRE Cr:1.78>1.5>1.3>1.5 Received Contrast In setting of volume overload Hyperkalemia Appreciate nephrology input Monitor renal function Monitor K levels as well Has been on Bumex-creatinine remains stable at 1.51 Urine output has been decreasing and creatinine is slightly up today Bumex has been increased to 5 mg IV 4 times daily and metolazone 5 mg p.o. added today If urine output is not adequate will need to go for Bumex infusion as per the legal support assistant Will monitor PRP 04/06 crea improving from 1.5 now 0.99 Vp Organizational Development on board (4) Diabetes: Plan: -Last A1c was 9.1 on 01/13/2022 -Holding metformin Continue Insulin (5) Asthma: Plan: -Continue albuterol sulfate (6) Rib fractures: Plan: Left-sided rib fractures Nondisplaced Secondary to fall Continue incentive spirometer Pain control (7) Fall: Plan: Mechanical fall Fall precautions PT/OT Abnormal UA Ruled out UTI Urine Cx Mixed ashley Empirically received Rocephin for 3 days DVT Px: Eliquis CODE STATUS: Full code Disposition Rehab when medically stable Admission and Anticipated Discharge Date Admission Date: March 17, 2022 Subjective Follow-up for volume overload, liver cirrhosis, etc. Seen resting in bed, comfortable, not in distress Diarrhea improving Had lower abdominal pain last night no chest pain, dyspnea, palpitations, dizziness No other symptoms Review of Systems Review of Systems: all noted and negative except for above Physical Exam Physical Exam: General- oriented x 3, not in distress, speaks in sentences with no effort or accessory muscle use Eyes- anicteric Neck- no JVD Lungs- clear BS bilaterally, no rales/wheezes Heart- normal rate, regular rhythm; no murmurs Abdomen- normal bowel sounds, mildly distended, nontender, soft neck Extremities-mild pretibial edema, no calf tenderness Neuro- alert, oriented x 3; no gross focal neurologic deficits Skin- warm & dry Results & Data Results & Data ([facility]) Vital Signs (Past 12 Hours) Vital Signs Temp Pulse Pulse Resp BP Pulse Ox O2 Del Method 04/06/22 10:58 36.5 C 82 20 106/66 95 Room Air 04/06/22 07:38 86 04/06/22 07:09 36.5 C 84 16 110/60 95 Room Air 04/06/22 03:31 36.5 C 88 20 105/63 92 Room Air all noted and reviewed including below
[2022-04-06] MEDS: APIXABAN 5 MG TABLET PO SCH (12:19)
--- NOTE | 2022-04-06 13:02 | XRay Report ---
KUB HISTORY: lower abdominal pain COMPARISON: KUB 03/26/2022. FINDINGS: Prior cholecystectomy. Centralization of the bowel loops likely represents ascites. Borderl ine dilated gas-filled loops of large small bowel are seen throughout the abdomen. This could represe nt a mild ileus. Overall, this has improved compared the prior study. Overall, suboptimal evaluation due to the patient's body habitus. No renal calculi. No ureteral calculi. No pneumoperitoneum or pne umatosis. IMPRESSION: 1. Centralization of the bowel loops representing underlying ascites. 2. A few borderline dilated gas-filled loops of large and small bowel seen throughout the abdomen. Th is is improved compared the prior study and favors a mild ileus. A low-grade partial small bowel obst ruction is considered less likely but not entirely excluded. ACT 112: Negative or not required by law. Electronically signed by: Abe Florentino M.D. 04/06/2022 1:00 PM
[2022-04-06] MEDS: DICLOFENAC SOD 1% GEL 100 GM TUBE EXT PRN (20:20)
--- NOTE | 2022-04-06 20:43 | Nephrology Progress Note ---
Date of Service April 06, 2022 Assessment & Plan (1) Volume overload: Plan: 61-year-old female admitted to the hospital after she fell from her bed and was found to have left sided rib fracture as well as bilateral significant pulmonary embolism.Nephrology consulted for acute renal failure in a patient with liver cirrhosis with newly diagnosed bilateral pulmonary emboli. Baseline creatinine 1.1. Multiple therapeutic paracteneses this admission, last one 03/31 for 5L. Had BLAIRE earlier this admission, now resolved; bp improved as well. Still significantly overloaded -cont bumex 40 mg IV tid and 5 mg daily metolazone -cont increased K to 60 mEq tid -daily bmp -monitor for abdominal compartment syndrome but has been doing better lately (2) Hepatic cirrhosis: Plan: US paracentesis w cell ct and fluid analysis without evidence of SBP and SAAG >1.1 -As per Gastro recs Admission and Anticipated Discharge Date Admission Date: March 17, 2022 Subjective seen on rounds today approx 1140 AM; had bad night w/ worse abd pain and inability to move legs; on liquid diet for 48 hrs to see if this helps; Review of Systems Review of Systems: All systems reviewed & are unremarkable except as noted in Subjective Physical Exam Constitutional: well developed, well nourished and cooperative Eyes: EOM intact bilaterally ENMT: Ears: no external ear abnormality Nose: no external nose abnormality Mouth: + dry oral mucous membranes Neck: no nuchal rigidity Respiratory: normal respiratory effort (on RA) Auscultation: + diminished lung sounds and + crackles (few bibasilar) Cardiovascular: Rate/Rhythm: regular rhythm and + tachycardic Extremities: + edema (2-3+ dependent/proximal BLE and 1-2+ BL ankles) Gastrointestinal (Abdomen): Inspection/Auscultation: + abdomen distended, normal bowel sounds, + high-pitched sounds and + hyperactive bowel sounds Percussion/Palpation: abdomen soft, + ascites and + abdomen firm; abdomen nontender and no guarding Musculoskeletal: Extremities: + abnormal strength Skin: no rashes, warm and dry Psychiatric: Orientation: oriented x 3 Results & Data ([facility]) Vital Signs (Past 12 Hours) Vital Signs Temp Pulse Pulse Resp BP Pulse Ox O2 Del Method 04/06/22 19:08 36.7 C 94 H 20 115/71 93 Room Air 04/06/22 17:48 81 04/06/22 15:59 36.6 C 88 20 113/67 98 Room Air 04/06/22 13:41 Room Air 04/06/22 10:58 36.5 C 82 20 106/66 95 Room Air Laboratory Results 03/31/22 05:28 04/06/22 10:42
[2022-04-07] MEDS: BUMETANIDE IV SCH ×4 (00:15→17:20)
[2022-04-07] MEDS: APIXABAN 5 MG TABLET PO SCH ×2 (00:15→12:35)
[2022-04-07 06:43] LABS: Calcium 8.8 mg/dl (8.5-10.1); Creatinine Clr Calc Pharmacy 74.9 ml/min; Est GFR (African American) 74.1 ml/min; Est GFR (Non-African American) 63.9 ml/min; Potassium 4.5 mmol/L (3.5-5.1)
[2022-04-07] MEDS: DOCUSATE SODIUM 100 MG CAP PO SCH ×2 (08:18→20:28)
[2022-04-07] MEDS: metOLazone 5 MG TABLET PO SCH (08:19)
[2022-04-07] MEDS: MAGNESIUM CHLORIDE W/CALCIUM 64MG DELAYED REL TAB PO SCH ×2 (08:19→20:28)
[2022-04-07] MEDS: POTASSIUM CHLORIDE CRTAB 20 MEQ TABCR PO SCH ×2 (08:19→20:28)
[2022-04-07] MEDS: CHOLECALCIFEROL 1,000 UNITS 25 MCG TAB PO SCH (08:19)
[2022-04-07] MEDS: LANTUS PER UNIT CHARGE SQ SCH (08:25)
[2022-04-07] MEDS: INSULIN ASPART PER UNIT SC SCH ×4 (08:25→20:33)
--- NOTE | 2022-04-07 10:13 | Nephrology Progress Note ---
Date of Service April 07, 2022 Assessment & Plan (1) Volume overload: Plan: 61-year-old female admitted to the hospital after she fell from her bed and was found to have left sided rib fracture as well as bilateral significant pulmonary embolism.Nephrology consulted for acute renal failure in a patient with liver cirrhosis with newly diagnosed bilateral pulmonary emboli. Baseline creatinine 1.1. Multiple therapeutic paracteneses this admission, last one 03/31 for 5L. Had BLAIRE earlier this admission, now resolved; bp improved as well. Still significantly overloaded -cont bumex 40 mg IV tid and 5 mg daily metolazone -lowered K to 60 mEq bid -daily bmp -monitor for abdominal compartment syndrome but has been doing better lately (2) Hepatic cirrhosis: Plan: US paracentesis w cell ct and fluid analysis without evidence of SBP and SAAG >1.1 -As per Gastro recs Admission and Anticipated Discharge Date Admission Date: March 17, 2022 Subjective no c/o uncontrolle dpain. no sob. edema better Review of Systems Review of Systems: All systems reviewed & are unremarkable except as noted in Subjective Physical Exam Constitutional: well developed (up in chair on RA), well nourished and cooperative Eyes: EOM intact bilaterally ENMT: Ears: no external ear abnormality Nose: no external nose abnormality Mouth: + dry oral mucous membranes Neck: no nuchal rigidity Respiratory: normal respiratory effort (on RA) Auscultation: + diminished lung sounds and + crackles (few bibasilar) Cardiovascular: Rate/Rhythm: regular rhythm and + tachycardic Extremities: + edema (2-3+ dependent/proximal BLE and 1+ BL ankles) Gastrointestinal (Abdomen): Inspection/Auscultation: + abdomen distended, normal bowel sounds, + high-pitched sounds and + hyperactive bowel sounds Percussion/Palpation: abdomen soft, + ascites and + abdomen firm; abdomen nontender and no guarding Musculoskeletal: Extremities: + abnormal strength Skin: no rashes, warm and dry Psychiatric: Orientation: oriented x 3 Results & Data ([facility]) Vital Signs (Past 12 Hours) Vital Signs Temp Pulse Resp BP BP Pulse Ox O2 Del Method 04/07/22 07:43 36.2 C L 82 18 118/63 95 Room Air 04/07/22 05:27 86 116/64 04/07/22 03:06 36.8 C 86 20 95/53 L 95 Room Air 04/07/22 00:14 36.8 C 90 16 100/60 93 Room Air Laboratory Results 03/31/22 05:28 04/07/22 05:51
--- NOTE | 2022-04-07 10:44 | Gastroenterology Progress Note ---
Date of Service April 07, 2022 Assessment & Plan (1) Volume overload: Plan 61 year old female with JOYCE cirrhosis admitted with volume overload, pulmonary embolism and BLAIRE. Her kidney function appears to have improved, however, volume status has been difficult to control. Would continue diuresis and fluid restriction per nephrology Would recommend low NA diet as tolerated Would recommend arranging scheduled paracentesis weekly during admission as indicated - Does not appear that cytology was sent on previous specimen, this needs to be sent - No more than 9L off - Albumin 25% 25 g before and after - Send cell count, culture, cytology, total protein and albumin - As she is on Eliquis will defer timing of paracentesis to the primary service, radiology will likely require this to be held Avoid ETOH Less than 2g APAP is using Will need OP hepatology follow up Unfortunately, pleur-ex catheter is high risk for infection, including SBP. Would recommend to avoid for use in this setting. Will discuss with attending, recall as needed. Thank you for allowing us to participate in the care of this patient. Please call with any acute changes, questions or concerns. Please see addendum below with additional recommendation from my supervising physician. Admission and Anticipated Discharge Date Admission Date: March 17, 2022 Supervising Physician Co-Signing Physician Notes Attg add: Pt with persistent ascites, despite diuretics. On Bumex 5 q 6 and [place]oxyx[place], CT in February with con shows cirrhosis, splenomegaly, no PVT. Echo in December without pulm HTN, repeat this admission showed [facility] sign. Tap in February with high SAAG. Normotensive. Normal Creat. Albumin 3. Bili WNL. Plts 230. She is recorded to have a negative fluid balance 2 liters per day, with indewelling [place]. For now, arrange tap. Poor candidate for Pleurx, given risk infection. Doppler uls r/o PVT Check Urine NA, K to check diuretic responsiveness, also diet compliance. Daily weights if possible Consider repeat echo right sided pressures. Consider SGLT 2 agent for ? refractory ascites pending studies -- will d/w nephro. Subjective GI was asked to evaluate for repeat paracentesis, pleurex catheter placement for ascites. Pt was seen and evaluated, chart reviewed. Presently on a low NA diet, fluid restriction, IV Bumex. She has required paracentesis this admission on 03/31, 03/26, 03/20. 03/31 5L off 03/26 3L off 03/20 3L off Review of Systems Review of Systems: All systems reviewed & are unremarkable except as noted in HPI & below Physical Exam Constitutional: WD/WN, vitals as above Neck: trachea midline Respiratory: diminished at bases Cardiovascular: bilateral lower extremity edema, improve per patient Gastrointestinal (Abdomen): Inspection/Auscultation: normal bowel sounds + large non tesnse ascites Skin: no rashes, warm and dry Results & Data ([facility]) Vital Signs (Past 12 Hours) Vital Signs Temp Pulse Pulse Resp BP BP Pulse Ox 04/07/22 08:00 88 04/07/22 08:00 04/07/22 07:43 36.2 C L 82 18 118/63 95 04/07/22 05:27 86 116/64 04/07/22 03:06 36.8 C 86 20 95/53 L 95 04/07/22 00:14 36.8 C 90 16 100/60 93 O2 Del Method 04/07/22 08:00 04/07/22 08:00 Room Air 04/07/22 07:43 Room Air 04/07/22 05:27 04/07/22 03:06 Room Air 04/07/22 00:14 Room Air Laboratory Results 04/07/22 04/07/22 04/06/22 Range/Units 07:31 05:51 20:16 Sodium 137 (136-145) mmol/L Potassium 4.5 (3.5-5.1) mmol/L Chloride 100 (98-107) mmol/L Carbon Dioxide 32 (21-32) mmol/L Anion Gap 5 (3-11) BUN 32 H (6-23) mg/dl Creatinine 0.97 (0.6-1.2) mg/dl Est Cr Clr Drug Dosing 74.9 ml/min Est GFR ( Amer) 74.1 ml/min Est GFR (Non-Af Amer) 63.9 ml/min BUN/Creatinine Ratio 33.0 H (10-20) Glucose 112 H (70-99(Fasting)) mg/dl POC Glucose 123 H 138 H (70-99) mg/dl Calcium 8.8 (8.5-10.1) mg/dl 09/12/22 09/12/22 09/12/22 Range/Units 16:23 11:34 10:42 Sodium 138 (136-145) mmol/L Potassium 4.1 D (3.5-5.1) mmol/L Chloride 98 (98-107) mmol/L Carbon Dioxide 35 H (21-32) mmol/L Anion Gap 5 (3-11) BUN 33 H (6-23) mg/dl Creatinine 1.01 (0.6-1.2) mg/dl Est Cr Clr Drug Dosing 72.8 ml/min Est GFR ( Amer) 70.6 ml/min Est GFR (Non-Af Amer) 60.9 ml/min BUN/Creatinine Ratio 32.7 H (10-20) Glucose 176 H (70-99(Fasting)) mg/dl POC Glucose 120 H 212 H (70-99) mg/dl Calcium 9.0 (8.5-10.1) mg/dl
--- NOTE | 2022-04-07 17:00 | Hospitalist Progress Note ---
Date of Service April 07, 2022 Assessment & Plan (1) Volume overload: Plan: (1) Saddle pulmonary embolus: Plan: Acute Saddle pulmonary embolism Acute DVT of Left LE Hx of COVID infection in Jul was vaccinated in 2020 x 2 doses --CT Chest:Extensive bilateral pulmonary emboli including a saddle embolus within the main pulmonary arteries. No evidence for right-sided heart strain at this time. Acute left anterior third through fifth rib fractures. No pneumothorax. Additional subacute to chronic fractures within the chest and abdomen as described above. Cirrhotic liver with splenomegaly and a large amount of ascites. This has slightly progressed. Moderate to severe body wall edema again noted. Mildly enlarged anterior diaphragmatic and periportal lymph nodes remain unchanged. --ECHO:Aortic valve sclerosis mild, without significant aortic valvular stenosis. Left ventricle cavity is small. Moderate concentric LVH. Left ventricle wall motion is normal. Left ventricle is hyperdynamic. EF greater than 70%. Neck: Sign present with hypokinesis of the right ventricular apex with sparing of the basilar structures and mild apical dilatation consistent with acute pulmonary embolus. Trace tricuspid insufficiency is present --Venous Doppler:Acute appearing occlusive thrombus in the left lower extremity superficial femoral and popliteal veins. Soft tissue edema in the bilateral calf. No definite thrombus of the calf vessels despite limited evaluation. If any clinical deterioration, then tPA will be pursued Appreciate pulmonology input Supplemental oxygen as needed Continue IV Heparin >>Transitioned to Eliquis Heparin was on hold since 4 AM today and after the paracentesis Heparin was discontinued and Eliquis was started 04/07 stable on room air now on Eliquis Nocturnal Hypoxia Likely ANEL/OHS Nocturnal Oximetry completed May also need 2 step prior to discharge Will need outpatient sleep study Denies any shortness of breath at rest (2) Hepatic cirrhosis: Plan: - Nonalcoholic, hepatitis panel was conducted 01/27/2022 as reviewed in outpatient epic and is negative for hep A, B, C - MELD score 15 today, previously 13 - Scheduled with Dr. Mace as outpatient with hepatology on 05/05/22: In end of December pt was placed on lasix 20 mg daily and spironolactone 50 mg daily, lasix was increased to 40 mg daily on 02/11, now she is up to lasix 40 mg daily and spironolactone 100 mg daily. -Volume overload status --S/P Paracentesis:aspiration of 3 liters of ascites, No SBP --Continue diuretics as per Nephrology --Appreciate GI input --Fluid restriction, Low Na diet --Needs follow up with GI upon discharge Repeat abd USD:Moderate ascites is seen in all 4 quadrants. S/P repeat Paracentesis on 03/26/22 IV diuresis as per Nephrology Abdomen remains distended and will need another paracentesis Will need albumin before and after paracentesis Likely to need continuous drainage of acetic fluid with a Pleurx catheter in place-we will discussed with the coat room attendant More abdominal distention and more symptoms of shortness of breath and pain We will try a repeat ultrasound tomorrow for possible paracentesis trial- discussed with GI for possible placement of Pleurx catheter Status post 5 L paracentesis today-received 25 g of albumin before and after the paracentesis Into discussed with the GI for possible Pleurx catheter for continuous acetic fluid drainage as she has been requiring frequent paracentesis 04/07 currently on IV Bumex and Metolazone Diuresing on 2 L/day Continue to monitor Nephrology service on board, appreciate recommendations GI reconsulted for possible paracentesis, Pleurx catheter placement Diarrhea C. difficile negative Imodium as needed Resolved Advance diet to soft (3) BLAIRE (acute kidney injury): Plan: BLAIRE Cr:1.78>1.5>1.3>1.5 Received Contrast In setting of volume overload Hyperkalemia Appreciate nephrology input Monitor renal function Monitor K levels as well Has been on Bumex-creatinine remains stable at 1.51 Urine output has been decreasing and creatinine is slightly up today Bumex has been increased to 5 mg IV 4 times daily and metolazone 5 mg p.o. added today If urine output is not adequate will need to go for Bumex infusion as per the diamond merchant Will monitor PRP 04/07 crea improving from 1.5 now 0.9 [employer] Operator on board (4) Diabetes: Plan: -Last A1c was 9.1 on 01/13/2022 -Holding metformin Continue Insulin (5) Asthma: Plan: -Continue albuterol sulfate (6) Rib fractures: Plan: Left-sided rib fractures Nondisplaced Secondary to fall Continue incentive spirometer Pain control (7) Fall: Plan: Mechanical fall Fall precautions PT/OT Abnormal UA Ruled out UTI Urine Cx Mixed ashley Empirically received Rocephin for 3 days DVT Px: Eliquis CODE STATUS: Full code Disposition Rehab when medically stable Admission and Anticipated Discharge Date Admission Date: March 17, 2022 Subjective Follow-up for hypervolemia, liver cirrhosis, acute bilateral PE, etc. Seen resting in bed, sitting up, not in distress States she feels fine overall Diarrhea resolved, no abdominal pain, nausea vomiting, requesting diet to be advanced no chest pain, dyspnea, palpitations, dizziness No other symptom Review of Systems Review of Systems: all noted and negative except for above Physical Exam Physical Exam: General- oriented x 3, not in distress, speaks in sentences with no effort or accessory muscle use Eyes- anicteric Neck- no JVD Lungs- clear BS bilaterally, no rales/wheezes Heart- normal rate, regular rhythm; no murmurs Abdomen- normal bowel sounds, nondistended, soft, mild distention secondary to ascites Extremities- mild pretibial edema, no calf tenderness Neuro- alert, oriented x 3; no gross focal neurologic deficits Skin- warm & dry Results & Data Results & Data ([facility]) Vital Signs (Past 12 Hours) Vital Signs Temp Pulse Pulse Resp BP Pulse Ox O2 Del Method 04/07/22 16:28 36.5 C 87 18 115/68 95 Room Air 04/07/22 11:00 36.4 C L 91 H 20 120/78 96 Room Air 04/07/22 08:00 88 04/07/22 08:00 Room Air 04/07/22 07:43 36.2 C L 82 18 118/63 95 Room Air 04/07/22 05:27 86 116/64 all noted and reviewed including below
[2022-04-08] MEDS: APIXABAN 5 MG TABLET PO SCH ×2 (01:15→13:42)
[2022-04-08] MEDS: BUMETANIDE IV SCH ×4 (01:15→18:13)
[2022-04-08] MEDS: DICLOFENAC SOD 1% GEL 100 GM TUBE EXT PRN (06:31)
[2022-04-08 07:00] LABS: BUN Creatinine Ratio 28.6 (10-20); Calcium 8.9 mg/dl (8.5-10.1); Creatinine Clr Calc Pharmacy 69.4 ml/min; Est GFR (African American) 67.3 ml/min; Est GFR (Non-African American) 58.1 ml/min; Potassium 3.8 mmol/L (3.5-5.1)
[2022-04-08] MEDS: INSULIN ASPART PER UNIT SC SCH ×4 (07:48→21:00)
[2022-04-08] MEDS: POTASSIUM CHLORIDE CRTAB 20 MEQ TABCR PO SCH ×2 (08:24→19:59)
[2022-04-08] MEDS: metOLazone 5 MG TABLET PO SCH (08:24)
[2022-04-08] MEDS: MAGNESIUM CHLORIDE W/CALCIUM 64MG DELAYED REL TAB PO SCH ×2 (08:24→19:58)
[2022-04-08] MEDS: CHOLECALCIFEROL 1,000 UNITS 25 MCG TAB PO SCH (08:24)
[2022-04-08] MEDS: DOCUSATE SODIUM 100 MG CAP PO SCH ×2 (08:25→19:59)
[2022-04-08] MEDS: LANTUS PER UNIT CHARGE SQ SCH (08:28)
--- NOTE | 2022-04-08 08:48 | Nephrology Progress Note ---
Date of Service April 08, 2022 Assessment & Plan (1) Volume overload: Plan: 61-year-old female admitted to the hospital after she fell from her bed and was found to have left sided rib fracture as well as bilateral significant pulmonary embolism.Nephrology consulted for acute renal failure in a patient with liver cirrhosis with newly diagnosed bilateral pulmonary emboli. Baseline creatinine 1.1. Multiple therapeutic paracteneses this admission, last one 03/31 for 5L. Had BLAIRE earlier this admission, now resolved; bp improved as well. Still significantly overloaded >would continue IV diuresis -cont bumex 4 mg IV tid and 5 mg daily metolazone -cont K 60 mEq bid -daily bmp -needs daily STANDING weights; needs STRICT I/O -external grewal ok (2) Hepatic cirrhosis: Plan: US paracentesis w cell ct and fluid analysis without evidence of SBP and SAAG >1.1 -As per Gastro recs Admission and Anticipated Discharge Date Admission Date: March 17, 2022 Subjective no acute interval events clinically; GI considered paracentesis today but deferred. no sob; edema improving; no abd pain Review of Systems Review of Systems: All systems reviewed & are unremarkable except as noted in Subjective Physical Exam Constitutional: well developed (up in chair on RA), well nourished and cooperative Eyes: EOM intact bilaterally ENMT: Ears: no external ear abnormality Nose: no external nose abnormality Mouth: + dry oral mucous membranes Neck: no nuchal rigidity Respiratory: normal respiratory effort (on RA) Auscultation: lungs clear to auscultation bilaterally and + diminished lung sounds Cardiovascular: Rate/Rhythm: regular rhythm and + tachycardic Extremities: + edema (2-3+ dependent/proximal BLE and 1+ BL ankles) Gastrointestinal (Abdomen): Inspection/Auscultation: + abdomen distended and normal bowel sounds Percussion/Palpation: abdomen soft, + ascites and + abdomen firm; abdomen nontender and no guarding Musculoskeletal: Extremities: + abnormal strength Skin: no rashes, warm and dry Psychiatric: Orientation: oriented x 3 Results & Data ([facility]) Vital Signs (Past 12 Hours) Vital Signs Temp Pulse Pulse Resp BP Pulse Ox O2 Del Method 04/08/22 07:18 36.7 C 85 16 119/72 92 Room Air 04/08/22 03:56 36.4 C L 89 20 123/74 98 Room Air 04/07/22 23:24 36.5 C 18 150/82 H 94 Room Air 04/07/22 22:57 87 Laboratory Results 03/31/22 05:28 04/08/22 06:16
--- NOTE | 2022-04-08 12:21 | Hospitalist Progress Note ---
Date of Service April 08, 2022 Assessment & Plan (1) Volume overload: Plan: (1) Saddle pulmonary embolus: Plan: Acute Saddle pulmonary embolism Acute DVT of Left LE Hx of COVID infection in Jul was vaccinated in 2020 x 2 doses --CT Chest:Extensive bilateral pulmonary emboli including a saddle embolus within the main pulmonary arteries. No evidence for right-sided heart strain at this time. Acute left anterior third through fifth rib fractures. No pneumothorax. Additional subacute to chronic fractures within the chest and abdomen as described above. Cirrhotic liver with splenomegaly and a large amount of ascites. This has slightly progressed. Moderate to severe body wall edema again noted. Mildly enlarged anterior diaphragmatic and periportal lymph nodes remain unchanged. --ECHO:Aortic valve sclerosis mild, without significant aortic valvular stenosis. Left ventricle cavity is small. Moderate concentric LVH. Left ventricle wall motion is normal. Left ventricle is hyperdynamic. EF greater than 70%. Neck: Sign present with hypokinesis of the right ventricular apex with sparing of the basilar structures and mild apical dilatation consistent with acute pulmonary embolus. Trace tricuspid insufficiency is present --Venous Doppler:Acute appearing occlusive thrombus in the left lower extremity superficial femoral and popliteal veins. Soft tissue edema in the bilateral calf. No definite thrombus of the calf vessels despite limited evaluation. If any clinical deterioration, then tPA will be pursued Plan: -Stable from PE standpoint. Not on supplemental oxygen. -Continue on Eliquis 5 mg twice daily. (2) Hepatic cirrhosis: Plan: - Nonalcoholic, hepatitis panel was conducted 01/27/2022 as reviewed in outpatient epic and is negative for hep A, B, C - Scheduled with Dr. Mace as outpatient with hepatology on 05/05/22: In end of December pt was placed on lasix 20 mg daily and spironolactone 50 mg daily, lasix was increased to 40 mg daily on 02/11. -Patient underwent paracentesis on 03/20( 3 liters), 03/26( 3 Litres) and 03/31(5 litres). -Nephrology was consulted and patient was placed on Bumex every 6 hours and metolazone 5 mg once daily. Urine output over 2 L in last 2 days. Plan: -Patient is showing good response to diuretics; will continue iv Bumex every 6 hours and Metolazone q am daily. -Strict I/O - No indication for Pleurx catheter due to sign risk of infection. Diarrhea C. difficile negative Imodium as needed Resolved (3) BLAIRE (acute kidney injury): Plan: - Resolved - Likely contrast induced BLAIRE. - Cr peaked to 1.51 and down trended. Plan is to continue current diuretics and monitor renal function closely. (4) Diabetes: Plan: -Last A1c was 9.1 on 01/13/2022 -Holding metformin Continue Insulin -POCT glucose within range. (5) Asthma: Plan: -Continue albuterol sulfate (6) Rib fractures: Plan: Left-sided rib fractures Nondisplaced Secondary to fall Continue incentive spirometer Pain control (7) Fall: Plan: Mechanical fall Fall precautions PT/OT Abnormal UA Ruled out UTI Urine Cx Mixed ashley Empirically received Rocephin for 3 days DVT Px: Eliquis CODE STATUS: Full code Disposition Rehab when medically stable Admission and Anticipated Discharge Date Admission Date: March 17, 2022 Subjective Patient seen and examined at bedside. She is comfortably lying in the bed; not in any acute distress. She denies any abdominal discomfort or pain. Afebrile overnight. Urine output of 2.3 L in last 24 hours. Telemetry shows sinus rhythm with occasional PVCs. Review of Systems Review of Systems: All systems reviewed & are unremarkable except as noted in Subjective Physical Exam Physical Exam: General- oriented x 3, not in distress, speaks in sentences with no effort or accessory muscle use Eyes- anicteric Neck- no JVD Lungs- clear BS bilaterally, no rales/wheezes Heart- normal rate, regular rhythm; no murmurs Abdomen- normal bowel sounds, nondistended, soft, mild distention secondary to ascites. No fluid thrill appreciated Extremities- mild pretibial edema, no calf tenderness Neuro- alert, oriented x 3; no gross focal neurologic deficits Skin- warm & dry Results & Data Results & Data ([facility]) Vital Signs (Past 12 Hours) Vital Signs Temp Pulse Pulse Resp BP Pulse Ox O2 Del Method 04/08/22 11:14 37.1 C 90 16 117/62 94 Room Air 04/08/22 08:00 86 04/08/22 08:00 Room Air 04/08/22 07:18 36.7 C 85 16 119/72 92 Room Air 04/08/22 03:56 36.4 C L 89 20 123/74 98 Room Air Laboratory Results Laboratory Results WBC 6.15 K/ul (4.8-10.8) 03/31/22 05:28 RBC 3.24 M/uL (3.93-5.22) L 03/31/22 05:28 Hgb 9.8 g/dl (12.0-16.0) L 03/31/22 05:28 Hct 28.8 % (34.1-44.9) L 03/31/22 05:28 MCV 88.9 fL (80.0-100.0) 03/31/22 05:28 MCH 30.2 pg (25.0-34.0) 03/31/22 05:28 MCHC 34.0 g/dL (32.0-36.0) 03/31/22 05:28 RDW Std Deviation 53.1 fL (36.4-46.3) H 03/31/22 05:28 RDW Coeff of Samy 16.4 % (11.5-14.5) H 03/31/22 05:28 Plt Count 230 K/uL (130-400) 03/31/22 05:28 MPV 9.3 fL (9.4-12.3) L 03/31/22 05:28 Immature Gran % (Auto) 0.8 % 03/31/22 05:28 Neut % (Auto) 72.6 % 03/31/22 05:28 Lymph % (Auto) 12.2 % 03/31/22 05:28 [place] % (Auto) 11.2 % 03/31/22 05:28 Eos % (Auto) 2.1 % 03/31/22 05:28 Baso % (Auto) 1.1 % 03/31/22 05:28 Neut # (Auto) 4.46 K/uL (1.4-6.5) 03/31/22 05:28 Lymph # (Auto) 0.75 K/uL (1.2-3.4) L 03/31/22 05:28 [place] # (Auto) 0.69 K/uL (0.24-0.82) 03/31/22 05:28 Eos # (Auto) 0.13 K/uL (0-0.50) 03/31/22 05:28 Baso # (Auto) 0.07 K/uL (0-0.2) 03/31/22 05:28 Immature Gran # (Auto) 0.05 K/uL (0.00-0.02) H 03/31/22 05:28 Hypersegmented Neuts Occasional 03/19/22 05:35 PT 14.2 Seconds (9.0-12.0) H 03/19/22 05:35 INR 1.4 (0.9-1.1) H 03/19/22 05:35 APTT 49.0 Seconds (21.0-31.0) H* 03/30/22 23:52 PTT Ratio 1.8 03/30/22 23:52 ABG pH 7.44 (7.35-7.45) 03/18/22 23:23 ABG pCO2 45 mmHg (35-46) 03/18/22 23:23 ABG pO2 102 mmHg (80-95) H 03/18/22 23:23 ABG HCO3 31 mmol/L (19-24) H 03/18/22 23:23 ABG O2 Saturation 99.0 % (90-95) H 03/18/22 23:23 ABG Base Excess 5.6 mEq/L (-9-1.8) H 03/18/22 23:23 Khari Test Pos (Pos) 03/18/22 23:23 Oxygen Given 2L 03/18/22 23:23 Sodium 139 mmol/L (136-145) 04/08/22 06:16 Potassium 3.8 mmol/L (3.5-5.1) 04/08/22 06:16 Chloride 98 mmol/L (98-107) 04/08/22 06:16 Carbon Dioxide 35 mmol/L (21-32) H 04/08/22 06:16 Anion Gap 6 (3-11) 04/08/22 06:16 BUN 30 mg/dl (6-23) H 04/08/22 06:16 Creatinine 1.05 mg/dl (0.6-1.2) 04/08/22 06:16 Est Cr Clr Drug Dosing 69.4 ml/min 04/08/22 06:16 Est GFR ( Amer) 67.3 ml/min 04/08/22 06:16 Est GFR (Non-Af Amer) 58.1 ml/min 04/08/22 06:16 BUN/Creatinine Ratio 28.6 (10-20) H 04/08/22 06:16 Glucose 106 mg/dl (70-99(Fasting)) H 04/08/22 06:16 POC Glucose 168 mg/dl (70-99) H 04/08/22 11:03 Calcium 8.9 mg/dl (8.5-10.1) 04/08/22 06:16 Phosphorus 3.7 mg/dl (2.5-4.9) 03/30/22 05:49 Magnesium 1.9 mg/dl (1.7-2.4) 03/30/22 05:49 Total Bilirubin 0.9 mg/dl (0.2-1.0) 04/05/22 05:48 Direct Bilirubin 0.2 mg/dl (0-0.2) 03/20/22 06:30 AST 31 U/L (13-39) 04/05/22 05:48 ALT 13 U/L (7-52) 04/05/22 05:48 Alkaline Phosphatase 150 U/L (34-104) H 04/05/22 05:48 Troponin I High Sens 35.1 pg/ml (0-14) H 03/25/22 15:57 Total Protein 6.0 gm/dl (6.0-8.3) 04/05/22 05:48 Albumin 3.2 gm/dl (3.4-5.0) L 04/05/22 05:48 Globulin 2.8 gm/dl (2.5-4.0) 04/05/22 05:48 Albumin/Globulin Ratio 1.1 (0.9-2) 04/05/22 05:48 25-OH Vitamin D Total 13.8 ng/ml (30-100) L 03/17/22 11:30 Urine Color Dark Yellow 03/17/22 07:50 Urine Appearance Clear (Clear) 03/17/22 07:50 Urine pH 5.0 (4.5-7.5) 03/17/22 07:50 Ur Specific [place] 1.018 (1.000-1.030) 03/17/22 07:50 Urine Protein 1+ (Negative) H 03/17/22 07:50 Urine Glucose (UA) Negative (Negative) 03/17/22 07:50 Urine Ketones Trace (Negative) H 03/17/22 07:50 Urine Blood Negative (Negative) 03/17/22 07:50 Urine Nitrite Negative (Negative) 03/17/22 07:50 Urine Bilirubin 1+ (Negative) H 03/17/22 07:50 Urine Urobilinogen Negative (Negative) 03/17/22 07:50 Ur Leukocyte Esterase 2+ (Negative) H 03/17/22 07:50 Urine WBC (Auto) 5-10 /hpf (0-5) H 03/17/22 07:50 Urine RBC (Auto) 5-10 /hpf (0-4) H 03/17/22 07:50 U Hyaline Cast (Auto) 5-10 /lpf (0-5) H 03/17/22 07:50 U Epithel Cells (Auto) >30 /lpf (0-5) H 03/17/22 07:50 Urine Bacteria (Auto) 1+ (Negative) H 03/17/22 07:50 Ur Random Creatinine 105.8 mg/dl 03/17/22 17:50 Ur Random Sodium 76 mmol/L 03/17/22 17:50 Fluid Neutrophils % 8 % 03/20/22 14:20 Fluid Lymphocytes % 21 % 03/20/22 14:20 Fluid Eosinophils % 1 % 03/20/22 14:20 Fluid [place] % 70 % 03/20/22 14:20 Fluid Comment 03/20/22 14:20 Peritoneal Color Yellow 03/20/22 14:20 Peritoneal Appearance Clear 03/20/22 14:20 Peritoneal WBC 125 /ul (0-300) 03/20/22 14:20 Peritoneal RBC < 2000 /uL 03/20/22 14:20 Peritoneal Tot Protein 3.6 gm/dl 03/20/22 14:20 Peritoneal Tot Protein Cancelled 03/20/22 14:20 Peritoneal Albumin 2.0 gm/dl 03/20/22 14:20 Stl C. diff Tox B Gene Negative Cdiff Gene (Neg) 04/04/22 16:18 SARS-CoV-2, RNA, NAAT NEGATIVE (NEGATIVE) 03/17/22 11:50 Impressions Abdomen/Pelvis CT 03/17/22 07:[address] WITH CONTRAST, ABDOMEN AND PELVIS CT WITH INTRAVENOUS CONTRAST CT DOSE: 3804.89 mGy.cm HISTORY: fall, left chest pain. Left flank pain. TECHNIQUE: Multiaxial CT images of the chest, abdomen, and pelvis were performed following the intravenous administration of contrast. A dose lowering technique was utilized adhering to the principles of ALARA. COMPARISON: Chest CTA and abdomen pelvis CT 01/21/2022. FINDINGS: Chest CT: There is an old moderate superior endplate compression deformity at T3. There is a subacute mild superior endplate compression fracture at T4. No associated retropulsion. Healing right anterior rib fractures are again noted. There are acute left anterior third through fifth rib fractures. There are few additional healing left anterior rib fractures also noted. Mild elevation the right hemidiaphragm. The central airways are patent. No pneumothorax. No pleural effusions. Bibasilar linear densities consistent with subsegmental atelectasis. Otherwise, no new focal lung consolidations to suggest pneumonia. No evidence for pulmonary edema. There is a 1 cm left thyroid nodule. This does not meet CT criteria for follow-up. Mild body wall edema with left breast skin thickening. No change in the anterior diaphragmatic lymphadenopathy. Subcentimeter distal paraesophageal lymph nodes are again noted. There is no hilar lymphadenopathy. Normal esophagus. The heart is normal in size. No evidence for right-sided heart strain. There is extensive bilateral pulmonary emboli with associated subtle embolus at the main pulmonary arteries. Abdomen/pelvis CT: There is a chronic moderate to severe superior endplate compression deformity at L4, unchanged. No pneumoperitoneum. No pneumatosis. Moderate to severe body wall edema is again noted. There is pelvic floor collapse. The bladder is decompressed. The uterus and bilateral adnexa are unremarkable. No bowel wall thickening or obstruction. There is a large amount of ascites which has slightly progressed. Cirrhotic liver and splenomegaly is again noted. The adrenal glands, pancreas, and kidneys unremarkable. No hydronephrosis. The main portal vein is patent. Mild periportal lymphadenopathy remains unchanged. Normal caliber abdominal aorta. Cholecystectomy. Stable partially calcified pelvic/inguinal lymph nodes. IMPRESSION: 1. Extensive bilateral pulmonary emboli including a saddle embolus within the main pulmonary arteries. No evidence for right-sided heart strain at this time. 2. Acute left anterior third through fifth rib fractures. No pneumothorax. 3. Additional subacute to chronic fractures within the chest and abdomen as described above. 4. Cirrhotic liver with splenomegaly and a large amount of ascites. This has slightly progressed. 5. Moderate to severe body wall edema again noted. 6. Mildly enlarged anterior diaphragmatic and periportal lymph nodes remain unchanged. ACT 112: Negative or not required by law. Electronically signed by: Abe Florentino M.D. 03/17/2022 9:[address] 03/17/22 07:05 CT SCAN OF THE CERVICAL SPINE CLINICAL HISTORY: Trauma. Fall. COMPARISON STUDY: No priors. TECHNIQUE: CT scan of the cervical spine is performed from the skull base to the upper thoracic spine. Images are reviewed in the axial, sagittal, and coronal planes. IV contrast was not administered for this examination. A dose lowering technique was utilized adhering to the principles of ALARA. FINDINGS: Skeletal structures: The skeletal structures are osteopenic. There is no evidence of fracture or subluxation involving the cervical spine. Vertebral body height and alignment are maintained. There is straightening of the cervical lordosis. The odontoid process and lateral masses are intact. The atlantoaxial articulation is preserved noting minimal productive degenerative change. The spinous processes appear intact. Intervertebral discs: There is moderate disc space narrowing at C5-C6. Mild narrowing is seen at the remaining cervical levels. Central canal: Posterior disc osteophyte complexes at C4-C5 and C5-C6 may contribute to mild acquired compromise of the central canal. Soft tissues: The prevertebral and paraspinous soft tissues are within normal limits. There is atherosclerotic calcification of the carotid bulbs. Calvarium: The visualized calvarium at the skull base appears intact. Brain parenchyma: Partially visualized brain parenchyma at the skull base is within normal limits. Sinuses and mastoids: Trace fluid is noted in the sphenoid sinuses. The mastoid air cells are well pneumatized. Lung apices: Clear as visualized. IMPRESSION: 1. There is no evidence of fracture or subluxation involving the cervical spine. 2. Osteopenia and mild spondylotic change as above. ACT 112: Negative or not required by law. Electronically signed by: Felipe Aguirre M.D. 03/17/2022 8:[address] 03/17/22 07:[address] WITH CONTRAST, ABDOMEN AND PELVIS CT WITH INTRAVENOUS CONTRAST CT DOSE: 3804.89 mGy.cm HISTORY: fall, left chest pain. Left flank pain. TECHNIQUE: Multiaxial CT images of the chest, abdomen, and pelvis were performed following the intravenous administration of contrast. A dose lowering technique was utilized adhering to the principles of ALARA. COMPARISON: Chest CTA and abdomen pelvis CT 01/21/2022. FINDINGS: Chest CT: There is an old moderate superior endplate compression deformity at T3. There is a subacute mild superior endplate compression fracture at T4. No associated retropulsion. Healing right anterior rib fractures are again noted. There are acute left anterior third through fifth rib fractures. There are few additional healing left anterior rib fractures also noted. Mild elevation the right hemidiaphragm. The central airways are patent. No pneumothorax. No pleural effusions. Bibasilar linear densities consistent with subsegmental atelectasis. Otherwise, no new focal lung consolidations to suggest pneumonia. No evidence for pulmonary edema. There is a 1 cm left thyroid nodule. This does not meet CT criteria for follow-up. Mild body wall edema with left breast skin thickening. No change in the anterior diaphragmatic lymphadenopathy. Subcentimeter distal paraesophageal lymph nodes are again noted. There is no hilar lymphadenopathy. Normal esophagus. The heart is normal in size. No evidence for right-sided heart strain. There is extensive bilateral pulmonary emboli with associated subtle embolus at the main pulmonary arteries. Abdomen/pelvis CT: There is a chronic moderate to severe superior endplate compression deformity at L4, unchanged. No pneumoperitoneum. No pneumatosis. Moderate to severe body wall edema is again noted. There is pelvic floor collapse. The bladder is decompressed. The uterus and bilateral adnexa are unremarkable. No bowel wall thickening or obstruction. There is a large amount of ascites which has slightly progressed. Cirrhotic liver and splenomegaly is again noted. The adrenal glands, pancreas, and kidneys unremarkable. No hydronephrosis. The main portal vein is patent. Mild periportal lymphadenopathy remains unchanged. Normal caliber abdominal aorta. Cholecystectomy. Stable partially calcified pelvic/inguinal lymph nodes. IMPRESSION: 1. Extensive bilateral pulmonary emboli including a saddle embolus within the main pulmonary arteries. No evidence for right-sided heart strain at this time. 2. Acute left anterior third through fifth rib fractures. No pneumothorax. 3. Additional subacute to chronic fractures within the chest and abdomen as described above. 4. Cirrhotic liver with splenomegaly and a large amount of ascites. This has slightly progressed. 5. Moderate to severe body wall edema again noted. 6. Mildly enlarged anterior diaphragmatic and periportal lymph nodes remain unchanged. ACT 112: Negative or not required by law. Electronically signed by: Abe Florentino M.D. 03/17/2022 9:[address] 03/17/22 07:05 CT SCAN OF THE BRAIN WITHOUT IV CONTRAST CLINICAL HISTORY: Fall. COMPARISON STUDY: No priors. TECHNIQUE: Unenhanced axial CT scan of the brain is performed from the vertex to the skull base. A dose lowering technique was utilized adhering to the principles of ALARA. FINDINGS: Brain parenchyma: There is age-related involutional change noting minimal subcortical and periventricular microangiopathic disease. There is no hemorrhage, mass effect, or evidence of acute territorial ischemia by CT criteria. Mccracken-white matter differentiation is preserved. No extra-axial fluid collection is seen. Chronic lacunar infarcts are noted within both basal ganglia as well as the right thalamus. Ventricles, sulci, cisterns: Prominent secondary to involutional change. Intracranial vasculature: There is atherosclerotic calcification of the cavernous carotid and vertebral arteries. Calvarium: The skeletal structures are osteopenic. No depressed calvarial fracture is identified. Sinuses and mastoids: There is trace fluid within the sphenoid sinuses. The remaining visualized paranasal sinuses are clear. The mastoid air cells are well pneumatized. Orbits: The bony orbits are grossly intact. IMPRESSION: There is no hemorrhage, mass effect, or evidence of acute territ orial ischemia by CT criteria. ACT 112: Negative or not required by law. Electronically signed by: Felipe Aguirre M.D. 03/17/2022 8:19 AM Knee X-Ray 03/17/22 07:05 LEFT KNEE 3 VIEWS CLINICAL HISTORY: Fall with left knee pain and swelling. FINDINGS: AP, crosstable lateral, and sunrise views of the left knee are obtained. No prior studies are available for comparison at the time of dictation. The skeletal structures are osteopenic. No fracture is seen. The joint spaces of the knee are maintained. A small joint effusion is noted. Soft tissue edema is present throughout the visualized left lower extremity. IMPRESSION: 1. Soft tissue edema with no acute bony abnormality identified. 2. Small joint effusion. Electronically signed by: Felipe Aguirre M.D. 03/17/2022 8:36 AM Venous Doppler Study 03/17/22 10:11 US venous doppler LE BI CLINICAL HISTORY: pe TECHNIQUE: Bilateral lower extremity real-time compression venous ultrasound with Color Doppler imaging. Utilizing real-time ultrasonic imaging multiple real time high-resolution ultrasonic images with compression and noncompression maneuvers of the deep venous system in addition to color doppler imaging were performed from the common femoral vein through the proximal calf veins. COMPARISON: Comparison is made to Doppler ultrasound 01/06/2022 FINDINGS: There is a deep venous thrombus in the left superficial femoral vein in one of the 2 vessels, which also extends into the popliteal vein. Limited evaluation of the calf vessels bilaterally due to overlying edema and tenderness. Impression: 1. Acute appearing occlusive thrombus in the left lower extremity superficial femoral and popliteal veins. 2. Soft tissue edema in the bilateral calf. No definite thrombus of the calf vessels despite limited evaluation. ACT 112: Negative or not required by law. Electronically signed by: Mihai Motley M.D. 03/17/2022 11:46 AM Chest X-Ray 03/25/22 10:16 XR chest 1V portable CLINICAL HISTORY: chest pain TECHNIQUE: Single frontal radiograph of the chest was obtained. Comparison: Comparison is made to chest radiograph 03/18/[address] chest 03/17/2022 FINDINGS: No lines and tubes are seen. The cardiomediastinal silhouette is normal. Lungs are underinflated but clear. No evidence of pleural effusion or pneumothorax. Noted rib fractures are not well seen radiographically. IMPRESSION: Lungs are underinflated however no acute abnormalities are seen. ACT 112: Negative or not required by law. Electronically signed by: Mihai Motley M.D. 03/25/2022 10:37 AM Abdomen Ultrasound 03/29/22 10:59 US abdomen limited CLINICAL HISTORY: Tense Ascites TECHNIQUE: Multiple real-time sonographic images of the right upper quadrant were obtained. Comparison: Comparison is made to ascites ultrasound 03/25/[address] abdomen pelvis 03/17/2022 FINDINGS: There is moderate ascites in the left lower quadrant and a small amount of ascites in the right upper quadrant. IMPRESSION: Moderate ascites is seen, most prominent in the left lower quadrant. Although evaluation is limited by the mobility of the fluid, the possibility of ascites appears decreased compared to initial CT abdomen pelvis performed 03/17/2022 and likely remains somewhat decreased from 03/25/2022 as well. ACT 112: Negative or not required by law. Electronically signed by: Mihai Motley M.D. 03/29/2022 2:21 PM Paracentesis Ultrasound 03/31/22 00:00 PROCEDURE: Ultrasound-Guided Diagnostic/Therapeutic Paracentesis CLINICAL HISTORY: Ascites MEDICATIONS: Subcutaneous Lidocaine 2%. PROCEDURE: The procedure itself was explained to the patient carefully. The patient was brought into the IR suite and a time-out was performed. The patient was positioned supine on the table. Preliminary ultrasound of the abdomen was performed to determine a safe needle entry site. The most appropriate approach for safe needle entry site was planned and the site for puncture was marked. The right lower quadrant was prepped and draped in the usual sterile fashion. Subcutaneous 2% lidocaine was used for local anesthesia along the expected needle tract. Under ultrasound-guidance, an 5 Urdu Pharmaxiseh needle-sheath was inserted carefully into the peritoneal space towards the abdominal ascites fluid collection. The needle was removed and the sheath was connected to tubing and a vacuum suction device. A total of 5000 cc of serous ascites was aspirated. The sheath was removed and a sterile dressing applied. The patient tolerated the procedure well without immediate complications. IMPRESSION: Ultrasound-guided therapeutic paracentesis. Electronically signed by: Mihai Motley M.D. 03/31/2022 12:17 PM KUB X-Ray 04/06/22 09:39 KUB HISTORY: lower abdominal pain COMPARISON: KUB 03/26/2022. FINDINGS: Prior cholecystectomy. Centralization of the bowel loops likely represents ascites. Borderline dilated gas-filled loops of large small bowel are seen throughout the abdomen. This could represent a mild ileus. Overall, this has improved compared the prior study. Overall, suboptimal evaluation due to the patient's body habitus. No renal calculi. No ureteral calculi. No pneumoperitoneum or pneumatosis. IMPRESSION: 1. Centralization of the bowel loops representing underlying ascites. 2. A few borderline dilated gas-filled loops of large and small bowel seen throughout the abdomen. This is improved compared the prior study and favors a mild ileus. A low-grade partial small bowel obstruction is considered less likely but not entirely excluded. ACT 112: Negative or not required by law. Electronically signed by: Abe Florentino M.D. 04/06/2022 1:00 PM
[2022-04-08 14:00] LABS: Urine Potassium 71.1 mmol/L
[2022-04-09] MEDS: BUMETANIDE IV SCH ×4 (00:30→17:34)
[2022-04-09] MEDS: APIXABAN 5 MG TABLET PO SCH ×2 (00:30→13:27)
[2022-04-09] MEDS: DICLOFENAC SOD 1% GEL 100 GM TUBE EXT PRN (03:02)
[2022-04-09 06:36] LABS: Basophils # (auto) 0.13 K/uL (0-0.2); Basophils % (auto) 2.7 %; Eosinophils # (auto) 0.19 K/uL (0-0.50); Hematocrit (blood only) 30.9 % (34.1-44.9); Hemoglobin 10.3 g/dl (12.0-16.0); Immature Granulocytes # (auto) 0.02 K/uL (0.00-0.02); Immature Granulocytes % (auto) 0.4 %; Lymphocytes # (auto) 1.12 K/uL (1.2-3.4); Lymphocytes % (auto) 23.7 %; Mean Corpuscular Hemoglobin 30.3 pg (25.0-34.0); Mean Corpuscular Hgb Conc 33.3 g/dL (32.0-36.0); Mean Corpuscular Volume 90.9 fL (80.0-100.0); Monocytes # (auto) 0.41 K/uL (0.24-0.82); Monocytes % (auto) 8.7 %; Neutrophils # (auto) 2.86 K/uL (1.4-6.5); Neutrophils % (auto) 60.5 %; Platelet Count 188 K/uL (130-400); RDW Coefficient of Variation 15.5 % (11.5-14.5); RDW Standard Deviation 51.5 fL (36.4-46.3); White Blood Count 4.73 K/ul (4.8-10.8)
[2022-04-09 06:48] LABS: INR 1.4 (0.9-1.1)
[2022-04-09 07:03] LABS: BUN Creatinine Ratio 30.4 (10-20); Calcium 9.1 mg/dl (8.5-10.1); Creatinine Clr Calc Pharmacy 77.9 ml/min; Est GFR (Non-African American) 68.2 ml/min; Potassium 3.6 mmol/L (3.5-5.1)
[2022-04-09] MEDS: CHOLECALCIFEROL 1,000 UNITS 25 MCG TAB PO SCH (08:39)
[2022-04-09] MEDS: MAGNESIUM CHLORIDE W/CALCIUM 64MG DELAYED REL TAB PO SCH ×2 (08:39→20:33)
[2022-04-09] MEDS: POTASSIUM CHLORIDE CRTAB 20 MEQ TABCR PO SCH ×2 (08:39→20:33)
[2022-04-09] MEDS: DOCUSATE SODIUM 100 MG CAP PO SCH ×2 (08:39→20:34)
[2022-04-09] MEDS: metOLazone 5 MG TABLET PO SCH (08:40)
[2022-04-09] MEDS: INSULIN ASPART PER UNIT SC SCH ×4 (09:25→21:10)
[2022-04-09] MEDS: LANTUS PER UNIT CHARGE SQ SCH (09:51)
--- NOTE | 2022-04-09 12:21 | Hospitalist Progress Note ---
Date of Service April 09, 2022 Assessment & Plan (1) Volume overload: Plan: (1) Saddle pulmonary embolus: Plan: Acute Saddle pulmonary embolism Acute DVT of Left LE Hx of COVID infection in Jul was vaccinated in 2020 x 2 doses --CT Chest:Extensive bilateral pulmonary emboli including a saddle embolus within the main pulmonary arteries. No evidence for right-sided heart strain at this time. Acute left anterior third through fifth rib fractures. No pneumothorax. Additional subacute to chronic fractures within the chest and abdomen as described above. Cirrhotic liver with splenomegaly and a large amount of ascites. This has slightly progressed. Moderate to severe body wall edema again noted. Mildly enlarged anterior diaphragmatic and periportal lymph nodes remain unchanged. --ECHO:Aortic valve sclerosis mild, without significant aortic valvular stenosis. Left ventricle cavity is small. Moderate concentric LVH. Left ventricle wall motion is normal. Left ventricle is hyperdynamic. EF greater than 70%. Neck: Sign present with hypokinesis of the right ventricular apex with sparing of the basilar structures and mild apical dilatation consistent with acute pulmonary embolus. Trace tricuspid insufficiency is present --Venous Doppler:Acute appearing occlusive thrombus in the left lower extremity superficial femoral and popliteal veins. Soft tissue edema in the bilateral calf. No definite thrombus of the calf vessels despite limited evaluation. If any clinical deterioration, then tPA will be pursued Plan: -Stable from PE standpoint. Not on supplemental oxygen. -Continue on Eliquis 5 mg twice daily. (2) Hepatic cirrhosis: Plan: - Nonalcoholic, hepatitis panel was conducted 01/27/2022 as reviewed in outpatient epic and is negative for hep A, B, C - Scheduled with Dr. Mace as outpatient with hepatology on 05/05/22: In end of December pt was placed on lasix 20 mg daily and spironolactone 50 mg daily, lasix was increased to 40 mg daily on 02/11. -Patient underwent paracentesis on 03/20( 3 liters), 03/26( 3 Litres) and 03/31(5 litres). -Nephrology was consulted and patient was placed on Bumex every 6 hours and metolazone 5 mg once daily. Urine output over 2 L in last 3 days. Plan: -Patient is showing good response to diuretics; will continue iv Bumex every 6 hours and Metolazone q am daily. - Will obtain abdominal ultrasound to monitor ascites response to diuretics. Her weight is down from 110 kg to 95 kgs. -Strict I/O - No indication for Pleurx catheter due to sign risk of infection. Diarrhea C. difficile negative Imodium as needed Resolved (3) BLAIRE (acute kidney injury): Plan: - Resolved - Likely contrast induced BLAIRE. - Cr peaked to 1.51 and down trended to baseline. Plan is to continue current diuretics and monitor renal function closely. (4) Diabetes: Plan: -Last A1c was 9.1 on 01/13/2022 -Holding metformin Continue Insulin -POCT glucose within range. (5) Asthma: Plan: -Continue albuterol sulfate (6) Rib fractures: Plan: Left-sided rib fractures Nondisplaced Secondary to fall Continue incentive spirometer Pain control (7) Fall: Plan: Mechanical fall Fall precautions PT/OT Abnormal UA Ruled out UTI Urine Cx Mixed ashley Empirically received Rocephin for 3 days DVT Px: Eliquis CODE STATUS: Full code Disposition Rehab when medically stable Admission and Anticipated Discharge Date Admission Date: March 17, 2022 Subjective Patient seen and examined at bedside. She is sitting up on the chair; not in any distress. [place] was taken out yesterday and she is voiding without any issues. Review of Systems Review of Systems: All systems reviewed & are unremarkable except as noted in Subjective Physical Exam Physical Exam: General- oriented x 3, not in distress, speaks in sentences with no effort or accessory muscle use Eyes- anicteric Neck- no JVD Lungs- clear BS bilaterally, no rales/wheezes Heart- normal rate, regular rhythm; no murmurs Abdomen- normal bowel sounds, nondistended, soft, mild distention secondary to ascites. No fluid thrill appreciated Extremities- mild pretibial edema, no calf tenderness Neuro- alert, oriented x 3; no gross focal neurologic deficits Skin- warm & dry Results & Data Results & Data ([facility]) Vital Signs (Past 12 Hours) Vital Signs Temp Pulse Pulse Resp BP Pulse Ox O2 Del Method 04/09/22 11:35 36.4 C L 94 H 16 117/70 96 Room Air 04/09/22 07:52 36.4 C L 89 20 111/64 93 Room Air 04/09/22 03:50 36.6 C 92 H 20 128/68 94 Room Air Diagnostic Findings Laboratory Results WBC 4.73 K/ul (4.8-10.8) L 04/09/22 06:00 RBC 3.40 M/uL (3.93-5.22) L 04/09/22 06:00 Hgb 10.3 g/dl (12.0-16.0) L 04/09/22 06:00 Hct 30.9 % (34.1-44.9) L 04/09/22 06:00 MCV 90.9 fL (80.0-100.0) 04/09/22 06:00 MCH 30.3 pg (25.0-34.0) 04/09/22 06:00 MCHC 33.3 g/dL (32.0-36.0) 04/09/22 06:00 RDW Std Deviation 51.5 fL (36.4-46.3) H 04/09/22 06:00 RDW Coeff of Samy 15.5 % (11.5-14.5) H 04/09/22 06:00 Plt Count 188 K/uL (130-400) 04/09/22 06:00 MPV 9.0 fL (9.4-12.3) L 04/09/22 06:00 Immature Gran % (Auto) 0.4 % 04/09/22 06:00 Neut % (Auto) 60.5 % 04/09/22 06:00 Lymph % (Auto) 23.7 % 04/09/22 06:00 Barry % (Auto) 8.7 % 04/09/22 06:00 Eos % (Auto) 4.0 % 04/09/22 06:00 Baso % (Auto) 2.7 % 04/09/22 06:00 Neut # (Auto) 2.86 K/uL (1.4-6.5) 04/09/22 06:00 Lymph # (Auto) 1.12 K/uL (1.2-3.4) L 04/09/22 06:00 Barry # (Auto) 0.41 K/uL (0.24-0.82) 04/09/22 06:00 Eos # (Auto) 0.19 K/uL (0-0.50) 04/09/22 06:00 Baso # (Auto) 0.13 K/uL (0-0.2) 04/09/22 06:00 Immature Gran # (Auto) 0.02 K/uL (0.00-0.02) 04/09/22 06:00 Hypersegmented Neuts Occasional 03/19/22 05:35 PT 15.0 Seconds (9.0-12.0) H 04/09/22 06:00 INR 1.4 (0.9-1.1) H 04/09/22 06:00 APTT 49.0 Seconds (21.0-31.0) H* 03/30/22 23:52 PTT Ratio 1.8 03/30/22 23:52 ABG pH 7.44 (7.35-7.45) 03/18/22 23:23 ABG pCO2 45 mmHg (35-46) 03/18/22 23:23 ABG pO2 102 mmHg (80-95) H 03/18/22 23:23 ABG HCO3 31 mmol/L (19-24) H 03/18/22 23:23 ABG O2 Saturation 99.0 % (90-95) H 03/18/22 23:23 ABG Base Excess 5.6 mEq/L (-9-1.8) H 03/18/22 23:23 Khari Test Pos (Pos) 03/18/22 23:23 Oxygen Given 2L 03/18/22 23:23 Sodium 137 mmol/L (136-145) 04/09/22 06:00 Potassium 3.6 mmol/L (3.5-5.1) 04/09/22 06:00 Chloride 97 mmol/L (98-107) L 04/09/22 06:00 Carbon Dioxide 32 mmol/L (21-32) 04/09/22 06:00 Anion Gap 8 (3-11) 04/09/22 06:00 BUN 28 mg/dl (6-23) H 04/09/22 06:00 Creatinine 0.92 mg/dl (0.6-1.2) 04/09/22 06:00 Est Cr Clr Drug Dosing 77.9 ml/min 04/09/22 06:00 Est GFR ( Amer) 79.0 ml/min 04/09/22 06:00 Est GFR (Non-Af Amer) 68.2 ml/min 04/09/22 06:00 BUN/Creatinine Ratio 30.4 (10-20) H 04/09/22 06:00 Glucose 111 mg/dl (70-99(Fasting)) H 04/09/22 06:00 POC Glucose 183 mg/dl (70-99) H 04/09/22 12:36 Calcium 9.1 mg/dl (8.5-10.1) 04/09/22 06:00 Phosphorus 3.7 mg/dl (2.5-4.9) 03/30/22 05:49 Magnesium 1.9 mg/dl (1.7-2.4) 03/30/22 05:49 Total Bilirubin 0.9 mg/dl (0.2-1.0) 04/05/22 05:48 Direct Bilirubin 0.2 mg/dl (0-0.2) 03/20/22 06:30 AST 31 U/L (13-39) 04/05/22 05:48 ALT 13 U/L (7-52) 04/05/22 05:48 Alkaline Phosphatase 150 U/L (34-104) H 04/05/22 05:48 Troponin I High Sens 35.1 pg/ml (0-14) H 03/25/22 15:57 Total Protein 6.0 gm/dl (6.0-8.3) 04/05/22 05:48 Albumin 3.2 gm/dl (3.4-5.0) L 04/05/22 05:48 Globulin 2.8 gm/dl (2.5-4.0) 04/05/22 05:48 Albumin/Globulin Ratio 1.1 (0.9-2) 04/05/22 05:48 25-OH Vitamin D Total 13.8 ng/ml (30-100) L 03/17/22 11:30 Urine Color Dark Yellow 03/17/22 07:50 Urine Appearance Clear (Clear) 03/17/22 07:50 Urine pH 5.0 (4.5-7.5) 03/17/22 07:50 Ur Specific [place] 1.018 (1.000-1.030) 03/17/22 07:50 Urine Protein 1+ (Negative) H 03/17/22 07:50 Urine Glucose (UA) Negative (Negative) 03/17/22 07:50 Urine Ketones Trace (Negative) H 03/17/22 07:50 Urine Blood Negative (Negative) 03/17/22 07:50 Urine Nitrite Negative (Negative) 03/17/22 07:50 Urine Bilirubin 1+ (Negative) H 03/17/22 07:50 Urine Urobilinogen Negative (Negative) 03/17/22 07:50 Ur Leukocyte Esterase 2+ (Negative) H 03/17/22 07:50 Urine WBC (Auto) 5-10 /hpf (0-5) H 03/17/22 07:50 Urine RBC (Auto) 5-10 /hpf (0-4) H 03/17/22 07:50 U Hyaline Cast (Auto) 5-10 /lpf (0-5) H 03/17/22 07:50 U Epithel Cells (Auto) >30 /lpf (0-5) H 03/17/22 07:50 Urine Bacteria (Auto) 1+ (Negative) H 03/17/22 07:50 Ur Random Creatinine 105.8 mg/dl 03/17/22 17:50 Ur Random Sodium 76 mmol/L 03/17/22 17:50 Urine Sodium 53 mmol/L 04/08/22 13:00 Urine Potassium 71.1 mmol/L 04/08/22 13:00 Urine Chloride 104 mmol/L 04/08/22 13:00 Fluid Neutrophils % 8 % 03/20/22 14:20 Fluid Lymphocytes % 21 % 03/20/22 14:20 Fluid Eosinophils % 1 % 03/20/22 14:20 Fluid Meso/Macro/Barry % 70 % 03/20/22 14:20 Fluid Comment 03/20/22 14:20 Peritoneal Color Yellow 03/20/22 14:20 Peritoneal Appearance Clear 03/20/22 14:20 Peritoneal WBC 125 /ul (0-300) 03/20/22 14:20 Peritoneal RBC < 2000 /uL 03/20/22 14:20 Peritoneal Tot Protein 3.6 gm/dl 03/20/22 14:20 Peritoneal Tot Protein Cancelled 03/20/22 14:20 Peritoneal Albumin 2.0 gm/dl 03/20/22 14:20 Stl C. diff Tox B Gene Negative Cdiff Gene (Neg) 04/04/22 16:18 SARS-CoV-2, RNA, NAAT NEGATIVE (NEGATIVE) 03/17/22 11:50 Impressions Abdomen/Pelvis CT 03/17/22 07:[address] WITH CONTRAST, ABDOMEN AND PELVIS CT WITH INTRAVENOUS CONTRAST CT DOSE: 3804.89 mGy.cm HISTORY: fall, left chest pain. Left flank pain. TECHNIQUE: Multiaxial CT images of the chest, abdomen, and pelvis were performed following the intravenous administration of contrast. A dose lowering technique was utilized adhering to the principles of ALARA. COMPARISON: Chest CTA and abdomen pelvis CT 01/21/2022. FINDINGS: Chest CT: There is an old moderate superior endplate compression deformity at T3. There is a subacute mild superior endplate compression fracture at T4. No associated retropulsion. Healing right anterior rib fractures are again noted. There are acute left anterior third through fifth rib fractures. There are few additional healing left anterior rib fractures also noted. Mild elevation the right hemidiaphragm. The central airways are patent. No pneumothorax. No pleural effusions. Bibasilar linear densities consistent with subsegmental atelectasis. Otherwise, no new focal lung consolidations to suggest pneumonia. No evidence for pulmonary edema. There is a 1 cm left thyroid nodule. This does not meet CT criteria for follow-up. Mild body wall edema with left breast skin thickening. No change in the anterior diaphragmatic lymphadenopathy. Subcentimeter distal paraesophageal lymph nodes are again noted. There is no hilar lymphadenopathy. Normal esophagus. The heart is normal in size. No evidence for right-sided heart strain. There is extensive bilateral pulmonary emboli with associated subtle embolus at the main pulmonary arteries. Abdomen/pelvis CT: There is a chronic moderate to severe superior endplate compression deformity at L4, unchanged. No pneumoperitoneum. No pneumatosis. Moderate to severe body wall edema is again noted. There is pelvic floor collapse. The bladder is decompressed. The uterus and bilateral adnexa are unremarkable. No bowel wall thickening or obstruction. There is a large amount of ascites which has slightly progressed. Cirrhotic liver and splenomegaly is again noted. The adrenal glands, pancreas, and kidneys unremarkable. No hydronephrosis. The main portal vein is patent. Mild periportal lymphadenopathy remains unchanged. Normal caliber abdominal aorta. Cholecystectomy. Stable partially calcified pelvic/inguinal lymph nodes. IMPRESSION: 1. Extensive bilateral pulmonary emboli including a saddle embolus within the main pulmonary arteries. No evidence for right-sided heart strain at this time. 2. Acute left anterior third through fifth rib fractures. No pneumothorax. 3. Additional subacute to chronic fractures within the chest and abdomen as described above. 4. Cirrhotic liver with splenomegaly and a large amount of ascites. This has slightly progressed. 5. Moderate to severe body wall edema again noted. 6. Mildly enlarged anterior diaphragmatic and periportal lymph nodes remain unchanged. ACT 112: Negative or not required by law. Electronically signed by: Abe Florentino M.D. 03/17/2022 9:[address] 03/17/22 07:05 CT SCAN OF THE CERVICAL SPINE CLINICAL HISTORY: Trauma. Fall. COMPARISON STUDY: No priors. TECHNIQUE: CT scan of the cervical spine is performed from the skull base to the upper thoracic spine. Images are reviewed in the axial, sagittal, and coronal planes. IV contrast was not administered for this examination. A dose lowering technique was utilized adhering to the principles of ALARA. FINDINGS: Skeletal structures: The skeletal structures are osteopenic. There is no evidence of fracture or subluxation involving the cervical spine. Vertebral body height and alignment are maintained. There is straightening of the cervical lordosis. The odontoid process and lateral masses are intact. The atlantoaxial articulation is preserved noting minimal productive degenerative change. The spinous processes appear intact. Intervertebral discs: There is moderate disc space narrowing at C5-C6. Mild narrowing is seen at the remaining cervical levels. Central canal: Posterior disc osteophyte complexes at C4-C5 and C5-C6 may contribute to mild acquired compromise of the central canal. Soft tissues: The prevertebral and paraspinous soft tissues are within normal limits. There is atherosclerotic calcification of the carotid bulbs. Calvarium: The visualized calvarium at the skull base appears intact. Brain parenchyma: Partially visualized brain parenchyma at the skull base is within normal limits. Sinuses and mastoids: Trace fluid is noted in the sphenoid sinuses. The mastoid air cells are well pneumatized. Lung apices: Clear as visualized. IMPRESSION: 1. There is no evidence of fracture or subluxation involving the cervical spine. 2. Osteopenia and mild spondylotic change as above. ACT 112: Negative or not required by law. Electronically signed by: Felipe Aguirre M.D. 03/17/2022 8:[address] 03/17/22 07:[address] WITH CONTRAST, ABDOMEN AND PELVIS CT WITH INTRAVENOUS CONTRAST CT DOSE: 3804.89 mGy.cm HISTORY: fall, left chest pain. Left flank pain. TECHNIQUE: Multiaxial CT images of the chest, abdomen, and pelvis were performed following the intravenous administration of contrast. A dose lowering technique was utilized adhering to the principles of ALARA. COMPARISON: Chest CTA and abdomen pelvis CT 01/21/2022. FINDINGS: Chest CT: There is an old moderate superior endplate compression deformity at T3. There is a subacute mild superior endplate compression fracture at T4. No associated retropulsion. Healing right anterior rib fractures are again noted. There are acute left anterior third through fifth rib fractures. There are few additional healing left anterior rib fractures also noted. Mild elevation the r ight hemidiaphragm. The central airways are patent. No pneumothorax. No pleural effusions. Bibasilar linear densities consistent with subsegmental atelectasis. Otherwise, no new focal lung consolidations to suggest pneumonia. No evidence for pulmonary edema. There is a 1 cm left thyroid nodule. This does not meet CT criteria for follow-up. Mild body wall edema with left breast skin thickening. No change in the anterior diaphragmatic lymphadenopathy. Subcentimeter distal paraesophageal lymph nodes are again noted. There is no hilar lymphadenopathy. Normal esophagus. The heart is normal in size. No evidence for right-sided heart strain. There is extensive bilateral pulmonary emboli with associated subtle embolus at the main pulmonary arteries. Abdomen/pelvis CT: There is a chronic moderate to severe superior endplate compression deformity at L4, unchanged. No pneumoperitoneum. No pneumatosis. Moderate to severe body wall edema is again noted. There is pelvic floor collapse. The bladder is decompressed. The uterus and bilateral adnexa are unremarkable. No bowel wall thickening or obstruction. There is a large amount of ascites which has slightly progressed. Cirrhotic liver and splenomegaly is again noted. The adrenal glands, pancreas, and kidneys unremarkable. No hydronephrosis. The main portal vein is patent. Mild periportal lymphadenopathy remains unchanged. Normal caliber abdominal aorta. Cholecystectomy. Stable partially calcified pelvic/inguinal lymph nodes. IMPRESSION: 1. Extensive bilateral pulmonary emboli including a saddle embolus within the main pulmonary arteries. No evidence for right-sided heart strain at this time. 2. Acute left anterior third through fifth rib fractures. No pneumothorax. 3. Additional subacute to chronic fractures within the chest and abdomen as described above. 4. Cirrhotic liver with splenomegaly and a large amount of ascites. This has slightly progressed. 5. Moderate to severe body wall edema again noted. 6. Mildly enlarged anterior diaphragmatic and periportal lymph nodes remain unchanged. ACT 112: Negative or not required by law. Electronically signed by: Abe Florentino M.D. 03/17/2022 9:[address] 03/17/22 07:05 CT SCAN OF THE BRAIN WITHOUT IV CONTRAST CLINICAL HISTORY: Fall. COMPARISON STUDY: No priors. TECHNIQUE: Unenhanced axial CT scan of the brain is performed from the vertex to the skull base. A dose lowering technique was utilized adhering to the principles of ALARA. FINDINGS: Brain parenchyma: There is age-related involutional change noting minimal subcortical and periventricular microangiopathic disease. There is no hemorrhage, mass effect, or evidence of acute territorial ischemia by CT criteria. Mccracken-white matter differentiation is preserved. No extra-axial fluid collection is seen. Chronic lacunar infarcts are noted within both basal ganglia as well as the right thalamus. Ventricles, sulci, cisterns: Prominent secondary to involutional change. Intracranial vasculature: There is atherosclerotic calcification of the cavernous carotid and vertebral arteries. Calvarium: The skeletal structures are osteopenic. No depressed calvarial fracture is identified. Sinuses and mastoids: There is trace fluid within the sphenoid sinuses. The remaining visualized paranasal sinuses are clear. The mastoid air cells are well pneumatized. Orbits: The bony orbits are grossly intact. IMPRESSION: There is no hemorrhage, mass effect, or evidence of acute territorial ischemia by CT criteria. ACT 112: Negative or not required by law. Electronically signed by: Felipe Aguirre M.D. 03/17/2022 8:19 AM Knee X-Ray 03/17/22 07:05 LEFT KNEE 3 VIEWS CLINICAL HISTORY: Fall with left knee pain and swelling. FINDINGS: AP, crosstable lateral, and sunrise views of the left knee are obtained. No prior studies are available for comparison at the time of dictation. The skeletal structures are osteopenic. No fracture is seen. The joint spaces of the knee are maintained. A small joint effusion is noted. Soft tissue edema is present throughout the visualized left lower extremity. IMPRESSION: 1. Soft tissue edema with no acute bony abnormality identified. 2. Small joint effusion. Electronically signed by: Felipe Aguirre M.D. 03/17/2022 8:36 AM Venous Doppler Study 03/17/22 10:11 US venous doppler LE BI CLINICAL HISTORY: pe TECHNIQUE: Bilateral lower extremity real-time compression venous ultrasound with Color Doppler imaging. Utilizing real-time ultrasonic imaging multiple real time high-resolution ultrasonic images with compression and noncompression maneuvers of the deep venous system in addition to color doppler imaging were performed from the common femoral vein through the proximal calf veins. COMPARISON: Comparison is made to Doppler ultrasound 01/06/2022 FINDINGS: There is a deep venous thrombus in the left superficial femoral vein in one of the 2 vessels, which also extends into the popliteal vein. Limited evaluation of the calf vessels bilaterally due to overlying edema and tenderness. Impression: 1. Acute appearing occlusive thrombus in the left lower extremity superficial femoral and popliteal veins. 2. Soft tissue edema in the bilateral calf. No definite thrombus of the calf vessels despite limited evaluation. ACT 112: Negative or not required by law. Electronically signed by: Mihai Motley M.D. 03/17/2022 11:46 AM Chest X-Ray 03/25/22 10:16 XR chest 1V portable CLINICAL HISTORY: chest pain TECHNIQUE: Single frontal radiograph of the chest was obtained. Comparison: Comparison is made to chest radiograph 03/18/[address] chest 03/17/2022 FINDINGS: No lines and tubes are seen. The cardiomediastinal silhouette is normal. Lungs are underinflated but clear. No evidence of pleural effusion or pneumothorax. Noted rib fractures are not well seen radiographically. IMPRESSION: Lungs are underinflated however no acute abnormalities are seen. ACT 112: Negative or not required by law. Electronically signed by: Mihai Motley M.D. 03/25/2022 10:37 AM Abdomen Ultrasound 03/29/22 10:59 US abdomen limited CLINICAL HISTORY: Tense Ascites TECHNIQUE: Multiple real-time sonographic images of the right upper quadrant wer e obtained. Comparison: Comparison is made to ascites ultrasound 03/25/[address] abdomen pelvis 03/17/2022 FINDINGS: There is moderate ascites in the left lower quadrant and a small amount of ascites in the right upper quadrant. IMPRESSION: Moderate ascites is seen, most prominent in the left lower quadrant. Although evaluation is limited by the mobility of the fluid, the possibility of ascites appears decreased compared to initial CT abdomen pelvis performed 03/17/2022 and likely remains somewhat decreased from 03/25/2022 as well. ACT 112: Negative or not required by law. Electronically signed by: Mihai Motley M.D. 03/29/2022 2:21 PM Paracentesis Ultrasound 03/31/22 00:00 PROCEDURE: Ultrasound-Guided Diagnostic/Therapeutic Paracentesis CLINICAL HISTORY: Ascites MEDICATIONS: Subcutaneous Lidocaine 2%. PROCEDURE: The procedure itself was explained to the patient carefully. The patient was brought into the IR suite and a time-out was performed. The patient was positioned supine on the table. Preliminary ultrasound of the abdomen was performed to determine a safe needle entry site. The most appropriate approach for safe needle entry site was planned and the site for puncture was marked. The right lower quadrant was prepped and draped in the usual sterile fashion. Subcutaneous 2% lidocaine was used for local anesthesia along the expected needle tract. Under ultrasound-guidance, an 5 [place] [employer] needle-sheath was inserted carefully into the peritoneal space towards the abdominal ascites fluid collection. The needle was removed and the sheath was connected to tubing and a vacuum suction device. A total of 5000 cc of serous ascites was aspirated. The sheath was removed and a sterile dressing applied. The patient tolerated the procedure well without immediate complications. IMPRESSION: Ultrasound-guided therapeutic paracentesis. Electronically signed by: Mihai Motley M.D. 03/31/2022 12:17 PM KUB X-Ray 04/06/22 09:39 KUB HISTORY: lower abdominal pain COMPARISON: KUB 03/26/2022. FINDINGS: Prior cholecystectomy. Centralization of the bowel loops likely represents ascites. Borderline dilated gas-filled loops of large small bowel are seen throughout the abdomen. This could represent a mild ileus. Overall, this has improved compared the prior study. Overall, suboptimal evaluation due to the patient's body habitus. No renal calculi. No ureteral calculi. No pneumoperitoneum or pneumatosis. IMPRESSION: 1. Centralization of the bowel loops representing underlying ascites. 2. A few borderline dilated gas-filled loops of large and small bowel seen throughout the abdomen. This is improved compared the prior study and favors a mild ileus. A low-grade partial small bowel obstruction is considered less likely but not entirely excluded. ACT 112: Negative or not required by law. Electronically signed by: Abe Florentino M.D. 04/06/2022 1:00 PM
--- NOTE | 2022-04-09 14:03 | Ultrasound Report ---
US abdomen ltd ascites CLINICAL HISTORY: Follow up on amount of ascites TECHNIQUE: Real-time grayscale sonographic images of the abdomen were obtained. Comparison: Comparison is made to paracentesis 03/31/2022 FINDINGS/IMPRESSION: Large ascites is seen. Partially visualized is nodular contour of the liver comp atible with cirrhosis. ACT 112: Negative or not required by law. Electronically signed by: Mihai Motley M.D. 04/09/2022 2:01 PM
--- NOTE | 2022-04-09 18:22 | Nephrology Progress Note ---
Date of Service April 09, 2022 Assessment & Plan (1) Volume overload: Plan: 61-year-old female admitted to the hospital after she fell from her bed and was found to have left sided rib fracture as well as bilateral significant pulmonary embolism.Nephrology consulted for acute renal failure in a patient with liver cirrhosis with newly diagnosed bilateral pulmonary emboli. Baseline creatinine 1.1. Multiple therapeutic paracteneses this admission, last one 03/31 for 5L. Had BLAIRE earlier this admission, now resolved; bp improved as well. Still significantly overloaded >would continue IV diuresis > daily 1.5-2.5L fluid off -cont bumex 4 mg IV tid and 5 mg daily metolazone -cont K 60 mEq bid -daily bmp -needs daily STANDING weights; needs STRICT I/O -external grewal ok -tap per GI >recommend remove another 5-7 L then change to po diuretics (2) Hepatic cirrhosis: Plan: US paracentesis w cell ct and fluid analysis without evidence of SBP and SAAG >1.1 -As per Gastro recs Admission and Anticipated Discharge Date Admission Date: March 17, 2022 Subjective no acute interval clinical events; continues to diurese well; for u/s and possible tap today Review of Systems Review of Systems: All systems reviewed & are unremarkable except as noted in Subjective Physical Exam Constitutional: well developed (up in chair on RA), well nourished and cooperative Eyes: EOM intact bilaterally ENMT: Ears: no external ear abnormality Nose: no external nose abnormality Mouth: + dry oral mucous membranes Neck: no nuchal rigidity Respiratory: normal respiratory effort (on RA) Auscultation: lungs clear to auscultation bilaterally, + diminished lung sounds and + crackles (few bibasilar ) Cardiovascular: Rate/Rhythm: regular rhythm and + tachycardic Extremities: + edema (2-3+ dependent/proximal BLE) Gastrointestinal (Abdomen): Inspection/Auscultation: + abdomen distended, normal bowel sounds, + high-pitched sounds and + hyperactive bowel sounds Percussion/Palpation: abdomen soft and + ascites; abdomen nontender and no guarding Musculoskeletal: Extremities: + abnormal strength Skin: no rashes, warm and dry Neurologic: barroso, fluent speech, nad Psychiatric: Orientation: oriented x 3 Results & Data ([facility]) Vital Signs (Past 12 Hours) Vital Signs Temp Pulse Pulse Resp BP Pulse Ox O2 Del Method 04/09/22 16:52 36.7 C 97 H 16 130/80 96 Room Air 04/09/22 11:35 36.4 C L 94 H 16 117/70 96 Room Air 04/09/22 07:52 36.4 C L 89 20 111/64 93 Room Air Laboratory Results 04/09/22 06:00 04/09/22 06:00
[2022-04-10] MEDS: APIXABAN 5 MG TABLET PO SCH ×2 (01:00→13:11)
[2022-04-10] MEDS: BUMETANIDE IV SCH ×4 (05:39→17:12)
[2022-04-10 06:21] LABS: Basophils # (auto) 0.11 K/uL (0-0.2); Basophils % (auto) 2.3 %; Eosinophils # (auto) 0.25 K/uL (0-0.50); Eosinophils % (auto) 5.1 %; Hematocrit (blood only) 29.7 % (34.1-44.9); Hemoglobin 9.8 g/dl (12.0-16.0); Immature Granulocytes # (auto) 0.02 K/uL (0.00-0.02); Immature Granulocytes % (auto) 0.4 %; Lymphocytes # (auto) 1.11 K/uL (1.2-3.4); Lymphocytes % (auto) 22.8 %; Mean Corpuscular Hemoglobin 29.8 pg (25.0-34.0); Mean Corpuscular Volume 90.3 fL (80.0-100.0); Monocytes # (auto) 0.44 K/uL (0.24-0.82); Neutrophils # (auto) 2.94 K/uL (1.4-6.5); Neutrophils % (auto) 60.4 %; Platelet Count 179 K/uL (130-400); RDW Coefficient of Variation 15.3 % (11.5-14.5); RDW Standard Deviation 50.5 fL (36.4-46.3); Red Blood Count 3.29 M/uL (3.93-5.22); White Blood Count 4.87 K/ul (4.8-10.8)
[2022-04-10 06:41] LABS: BUN Creatinine Ratio 25.5 (10-20); Creatinine Clr Calc Pharmacy 67.6 ml/min; Est GFR (African American) 66.6 ml/min; Est GFR (Non-African American) 57.4 ml/min; Potassium 3.2 mmol/L (3.5-5.1)
[2022-04-10] MEDS: INSULIN ASPART PER UNIT SC SCH ×4 (07:58→20:25)
[2022-04-10] MEDS: CHOLECALCIFEROL 1,000 UNITS 25 MCG TAB PO SCH (08:36)
[2022-04-10] MEDS: metOLazone 5 MG TABLET PO SCH (08:37)
[2022-04-10] MEDS: POTASSIUM CHLORIDE CRTAB 20 MEQ TABCR PO SCH ×3 (08:37→20:23)
[2022-04-10] MEDS: MAGNESIUM CHLORIDE W/CALCIUM 64MG DELAYED REL TAB PO SCH ×2 (08:37→20:25)
[2022-04-10] MEDS: DOCUSATE SODIUM 100 MG CAP PO SCH ×2 (08:37→20:23)
[2022-04-10] MEDS: LANTUS PER UNIT CHARGE SQ SCH (09:13)
--- NOTE | 2022-04-10 12:09 | Hospitalist Progress Note ---
Date of Service April 10, 2022 Assessment & Plan (1) Volume overload: Plan: (1) Saddle pulmonary embolus: Plan: Acute Saddle pulmonary embolism Acute DVT of Left LE Hx of COVID infection in Jul was vaccinated in 2020 x 2 doses --CT Chest:Extensive bilateral pulmonary emboli including a saddle embolus within the main pulmonary arteries. No evidence for right-sided heart strain at this time. Acute left anterior third through fifth rib fractures. No pneumothorax. Additional subacute to chronic fractures within the chest and abdomen as described above. Cirrhotic liver with splenomegaly and a large amount of ascites. This has slightly progressed. Moderate to severe body wall edema again noted. Mildly enlarged anterior diaphragmatic and periportal lymph nodes remain unchanged. --ECHO:Aortic valve sclerosis mild, without significant aortic valvular stenosis. Left ventricle cavity is small. Moderate concentric LVH. Left ventricle wall motion is normal. Left ventricle is hyperdynamic. EF greater than 70%. Neck: Sign present with hypokinesis of the right ventricular apex with sparing of the basilar structures and mild apical dilatation consistent with acute pulmonary embolus. Trace tricuspid insufficiency is present --Venous Doppler:Acute appearing occlusive thrombus in the left lower extremity superficial femoral and popliteal veins. Soft tissue edema in the bilateral calf. No definite thrombus of the calf vessels despite limited evaluation. If any clinical deterioration, then tPA will be pursued Plan: -Stable from PE standpoint. Not on supplemental oxygen. -Continue on Eliquis 5 mg twice daily. (2) Hepatic cirrhosis: Plan: - Nonalcoholic, hepatitis panel was conducted 01/27/2022 as reviewed in outpatient epic and is negative for hep A, B, C - Scheduled with Dr. Mace as outpatient with hepatology on 05/05/22: In end of December pt was placed on lasix 20 mg daily and spironolactone 50 mg daily, lasix was increased to 40 mg daily on 02/11. -Patient underwent paracentesis on 03/20( 3 liters), 03/26( 3 Litres) and 03/31(5 litres). -Nephrology was consulted and patient was placed on Bumex every 6 hours and metolazone 5 mg once daily. Urine output over 2 L in last 3 days. Last ultrasound was on 04/09; large ascites seen. Plan: -Patient continues to show good response to IV diuresis. As per nephrology, recommend to remove 5 to 7 L and changed to p.o. diuretics. Patient currently on Bumex 4 mg IV 3 times daily and 5 mg daily metolazone. Electrolytes reviewed; will give extra dose of potassium chloride today for hypokalemia. -Ultrasound reviewed; large ascites present. Plan to send cell count, culture, cytology, total protein and albumin. 25% albumin 25 g to be given before and after the procedure. Discussed with radiology regarding the timing; paracentesis to be done on Wednesday. will hold eliquis on Wednesday. -Strict I/O - No indication for Pleurx catheter due to sign risk of infection. Diarrhea C. difficile negative Imodium as needed Resolved (3) BLAIRE (acute kidney injury): Plan: - Resolved - Likely contrast induced BLAIRE. - Cr peaked to 1.51 and down trended to baseline. Plan is to continue current diuretics and monitor renal function closely. (4) Diabetes: Plan: -Last A1c was 9.1 on 01/13/2022 -Holding metformin Continue Insulin -POCT glucose within range. (5) Asthma: Plan: -Continue albuterol sulfate (6) Rib fractures: Plan: Left-sided rib fractures Nondisplaced Secondary to fall Continue incentive spirometer Pain control (7) Fall: Plan: Mechanical fall Fall precautions PT/OT Abnormal UA Ruled out UTI Urine Cx Mixed ashley Empirically received Rocephin for 3 days DVT Px: Eliquis CODE STATUS: Full code Disposition Rehab when medically stable Admission and Anticipated Discharge Date Admission Date: March 17, 2022 Subjective Patient seen and examined at bedside. She is comfortably sitting up on the chair. She denies any shortness of breath. She does notice that her abdomen feels more castillo compared to previous day. Her urine output in last 24 hours she is 3.6 L. Review of Systems Review of Systems: All systems reviewed & are unremarkable except as noted in Subjective Physical Exam Physical Exam: General- oriented x 3, not in distress, speaks in sentences with no effort or accessory muscle use Eyes- anicteric Neck- no JVD Lungs- clear BS bilaterally, no rales/wheezes Heart- normal rate, regular rhythm; no murmurs Abdomen-distended compared to previous day. No tenderness appreciated. Extremities- mild pretibial edema, no calf tenderness Neuro- alert, oriented x 3; no gross focal neurologic deficits Skin- warm & dry Results & Data Results & Data ([facility]) Vital Signs (Past 12 Hours) Vital Signs Temp Pulse Pulse Resp BP Pulse Ox O2 Del Method 04/10/22 11:34 36.3 C L 93 H 17 125/82 96 Room Air 04/10/22 09:47 86 04/10/22 07:11 36.5 C 90 17 131/76 95 Room Air Laboratory Results Laboratory Results WBC 4.87 K/ul (4.8-10.8) 04/10/22 05:59 RBC 3.29 M/uL (3.93-5.22) L 04/10/22 05:59 Hgb 9.8 g/dl (12.0-16.0) L 04/10/22 05:59 Hct 29.7 % (34.1-44.9) L 04/10/22 05:59 MCV 90.3 fL (80.0-100.0) 04/10/22 05:59 MCH 29.8 pg (25.0-34.0) 04/10/22 05:59 MCHC 33.0 g/dL (32.0-36.0) 04/10/22 05:59 RDW Std Deviation 50.5 fL (36.4-46.3) H 04/10/22 05:59 RDW Coeff of Samy 15.3 % (11.5-14.5) H 04/10/22 05:59 Plt Count 179 K/uL (130-400) 04/10/22 05:59 MPV 9.0 fL (9.4-12.3) L 04/10/22 05:59 Immature Gran % (Auto) 0.4 % 04/10/22 05:59 Neut % (Auto) 60.4 % 04/10/22 05:59 Lymph % (Auto) 22.8 % 04/10/22 05:59 [place] % (Auto) 9.0 % 04/10/22 05:59 Eos % (Auto) 5.1 % 04/10/22 05:59 Baso % (Auto) 2.3 % 04/10/22 05:59 Neut # (Auto) 2.94 K/uL (1.4-6.5) 04/10/22 05:59 Lymph # (Auto) 1.11 K/uL (1.2-3.4) L 04/10/22 05:59 [place] # (Auto) 0.44 K/uL (0.24-0.82) 04/10/22 05:59 Eos # (Auto) 0.25 K/uL (0-0.50) 04/10/22 05:59 Baso # (Auto) 0.11 K/uL (0-0.2) 04/10/22 05:59 Immature Gran # (Auto) 0.02 K/uL (0.00-0.02) 04/10/22 05:59 Hypersegmented Neuts Occasional 03/19/22 05:35 PT 15.0 Seconds (9.0-12.0) H 04/09/22 06:00 INR 1.4 (0.9-1.1) H 04/09/22 06:00 APTT 49.0 Seconds (21.0-31.0) H* 03/30/22 23:52 PTT Ratio 1.8 03/30/22 23:52 ABG pH 7.44 (7.35-7.45) 03/18/22 23:23 ABG pCO2 45 mmHg (35-46) 03/18/22 23:23 ABG pO2 102 mmHg (80-95) H 03/18/22 23:23 ABG HCO3 31 mmol/L (19-24) H 03/18/22 23:23 ABG O2 Saturation 99.0 % (90-95) H 03/18/22 23:23 ABG Base Excess 5.6 mEq/L (-9-1.8) H 03/18/22 23:23 Khari Test Pos (Pos) 03/18/22 23:23 Oxygen Given 2L 03/18/22 23:23 Sodium 136 mmol/L (136-145) 04/10/22 05:59 Potassium 3.2 mmol/L (3.5-5.1) L 04/10/22 05:59 Chloride 95 mmol/L (98-107) L 04/10/22 05:59 Carbon Dioxide 33 mmol/L (21-32) H 04/10/22 05:59 Anion Gap 8 (3-11) 04/10/22 05:59 BUN 27 mg/dl (6-23) H 04/10/22 05:59 Creatinine 1.06 mg/dl (0.6-1.2) 04/10/22 05:59 Est Cr Clr Drug Dosing 67.6 ml/min 04/10/22 05:59 Est GFR ( Amer) 66.6 ml/min 04/10/22 05:59 Est GFR (Non-Af Amer) 57.4 ml/min 04/10/22 05:59 BUN/Creatinine Ratio 25.5 (10-20) H 04/10/22 05:59 Glucose 97 mg/dl (70-99(Fasting)) 04/10/22 05:59 POC Glucose 142 mg/dl (70-99) H 04/10/22 11:35 Calcium 9.0 mg/dl (8.5-10.1) 04/10/22 05:59 Phosphorus 3.7 mg/dl (2.5-4.9) 03/30/22 05:49 Magnesium 1.9 mg/dl (1.7-2.4) 03/30/22 05:49 Total Bilirubin 0.9 mg/dl (0.2-1.0) 04/05/22 05:48 Direct Bilirubin 0.2 mg/dl (0-0.2) 03/20/22 06:30 AST 31 U/L (13-39) 04/05/22 05:48 ALT 13 U/L (7-52) 04/05/22 05:48 Alkaline Phosphatase 150 U/L (34-104) H 04/05/22 05:48 Troponin I High Sens 35.1 pg/ml (0-14) H 03/25/22 15:57 Total Protein 6.0 gm/dl (6.0-8.3) 04/05/22 05:48 Albumin 3.2 gm/dl (3.4-5.0) L 04/05/22 05:48 Globulin 2.8 gm/dl (2.5-4.0) 04/05/22 05:48 Albumin/Globulin Ratio 1.1 (0.9-2) 04/05/22 05:48 25-OH Vitamin D Total 13.8 ng/ml (30-100) L 03/17/22 11:30 Urine Color Dark Yellow 03/17/22 07:50 Urine Appearance Clear (Clear) 03/17/22 07:50 Urine pH 5.0 (4.5-7.5) 03/17/22 07:50 Ur Specific [place] 1.018 (1.000-1.030) 03/17/22 07:50 Urine Protein 1+ (Negative) H 03/17/22 07:50 Urine Glucose (UA) Negative (Negative) 03/17/22 07:50 Urine Ketones Trace (Negative) H 03/17/22 07:50 Urine Blood Negative (Negative) 03/17/22 07:50 Urine Nitrite Negative (Negative) 03/17/22 07:50 Urine Bilirubin 1+ (Negative) H 03/17/22 07:50 Urine Urobilinogen Negative (Negative) 03/17/22 07:50 Ur Leukocyte Esterase 2+ (Negative) H 03/17/22 07:50 Urine WBC (Auto) 5-10 /hpf (0-5) H 03/17/22 07:50 Urine RBC (Auto) 5-10 /hpf (0-4) H 03/17/22 07:50 U Hyaline Cast (Auto) 5-10 /lpf (0-5) H 03/17/22 07:50 U Epithel Cells (Auto) >30 /lpf (0-5) H 03/17/22 07:50 Urine Bacteria (Auto) 1+ (Negative) H 03/17/22 07:50 Ur Random Creatinine 105.8 mg/dl 03/17/22 17:50 Ur Random Sodium 76 mmol/L 03/17/22 17:50 Urine Sodium 53 mmol/L 04/08/22 13:00 Urine Potassium 71.1 mmol/L 04/08/22 13:00 Urine Chloride 104 mmol/L 04/08/22 13:00 Fluid Neutrophils % 8 % 03/20/22 14:20 Fluid Lymphocytes % 21 % 03/20/22 14:20 Fluid Eosinophils % 1 % 03/20/22 14:20 Fluid [place]ro/Candler % 70 % 03/20/22 14:20 Fluid Comment 03/20/22 14:20 Peritoneal Color Yellow 03/20/22 14:20 Peritoneal Appearance Clear 03/20/22 14:20 Peritoneal WBC 125 /ul (0-300) 03/20/22 14:20 Peritoneal RBC < 2000 /uL 03/20/22 14:20 Peritoneal Tot Protein 3.6 gm/dl 03/20/22 14:20 Peritoneal Tot Protein Cancelled 03/20/22 14:20 Peritoneal Albumin 2.0 gm/dl 03/20/22 14:20 Stl C. diff Tox B Gene Negative Cdiff Gene (Neg) 04/04/22 16:18 SARS-CoV-2, RNA, NAAT NEGATIVE (NEGATIVE) 03/17/22 11:50 Impressions Abdomen/Pelvis CT 03/17/22 07:[address] WITH CONTRAST, ABDOMEN AND PELVIS CT WITH INTRAVENOUS CONTRAST CT DOSE: 3804.89 mGy.cm HISTORY: fall, left chest pain. Left flank pain. TECHNIQUE: Multiaxial CT images of the chest, abdomen, and pelvis were performed following the intravenous administration of contrast. A dose lowering technique was utilized adhering to the principles of ALARA. COMPARISON: Chest CTA and abdomen pelvis CT 01/21/2022. FINDINGS: Chest CT: There is an old moderate superior endplate compression deformity at T3. There is a subacute mild superior endplate compression fracture at T4. No associated retropulsion. Healing right anterior rib fractures are again noted. There are acute left anterior third through fifth rib fractures. There are few additional healing left anterior rib fractures also noted. Mild elevation the right hemidiaphragm. The central airways are patent. No pneumothorax. No pleural effusions. Bibasilar linear densities consistent with subsegmental atelectasis. Otherwise, no new focal lung consolidations to suggest pneumonia. No evidence for pulmonary edema. There is a 1 cm left thyroid nodule. This does not meet CT criteria for follow-up. Mild body wall edema with left breast skin thickening. No change in the anterior diaphragmatic lymphadenopathy. Subcentimeter distal paraesophageal lymph nodes are again noted. There is no hilar lymphadenopathy. Normal esophagus. The heart is normal in size. No evidence for right-sided heart strain. There is extensive bilateral pulmonary emboli with associated subtle embolus at the main pulmonary arteries. Abdomen/pelvis CT: There is a chronic moderate to severe superior endplate compression deformity at L4, unchanged. No pneumoperitoneum. No pneumatosis. Moderate to severe body wall edema is again noted. There is pelvic floor collapse. The bladder is decompressed. The uterus and bilateral adnexa are unremarkable. No bowel wall thickening or obstruction. There is a large amount of ascites which has slightly progressed. Cirrhotic liver and splenomegaly is again noted. The adrenal glands, pancreas, and kidneys unremarkable. No hydronephrosis. The main portal vein is patent. Mild periportal lymphadenopathy remains unchanged. Normal caliber abdominal aorta. Cholecystectomy. Stable partially calcified pelvic/inguinal lymph nodes. IMPRESSION: 1. Extensive bilateral pulmonary emboli including a saddle embolus within the main pulmonary arteries. No evidence for right-sided heart strain at this time. 2. Acute left anterior third through fifth rib fractures. No pneumothorax. 3. Additional subacute to chronic fractures within the chest and abdomen as described above. 4. Cirrhotic liver with splenomegaly and a large amount of ascites. This has slightly progressed. 5. Moderate to severe body wall edema again noted. 6. Mildly enlarged anterior diaphragmatic and periportal lymph nodes remain unchanged. ACT 112: Negative or not required by law. Electronically signed by: Abe Florentino M.D. 03/17/2022 9:[address] 03/17/22 07:05 CT SCAN OF THE CERVICAL SPINE CLINICAL HISTORY: Trauma. Fall. COMPARISON STUDY: No priors. TECHNIQUE: CT scan of the cervical spine is performed from the skull base to the upper thoracic spine. Images are reviewed in the axial, sagittal, and coronal planes. IV contrast was not administered for this examination. A dose lowering technique was utilized adhering to the principles of ALARA. FINDINGS: Skeletal structures: The skeletal structures are osteopenic. There is no evidence of fracture or subluxation involving the cervical spine. Vertebral body height and alignment are maintained. There is straightening of the cervical lordosis. The odontoid process and lateral masses are intact. The atlantoaxial articulation is preserved noting minimal productive degenerative change. The spinous processes appear intact. Intervertebral discs: There is moderate disc space narrowing at C5-C6. Mild narrowing is seen at the remaining cervical levels. Central canal: Posterior disc osteophyte complexes at C4-C5 and C5-C6 may contribute to mild acquired compromise of the central canal. Soft tissues: The prevertebral and paraspinous soft tissues are within normal limits. There is atherosclerotic calcification of the carotid bulbs. Calvarium: The visualized calvarium at the skull base appears intact. Brain parenchyma: Partially visualized brain parenchyma at the skull base is within normal limits. Sinuses and mastoids: Trace fluid is noted in the sphenoid sinuses. The mastoid air cells are well pneumatized. Lung apices: Clear as visualized. IMPRESSION: 1. There is no evidence of fracture or subluxation involving the cervical spine. 2. Osteopenia and mild spondylotic change as above. ACT 112: Negative or not required by law. Electronically signed by: Felipe Aguirre M.D. 03/17/2022 8:[address] 03/17/22 07:[address] WITH CONTRAST, ABDOMEN AND PELVIS CT WITH INTRAVENOUS CONTRAST CT DOSE: 3804.89 mGy.cm HISTORY: fall, left chest pain. Left flank pain. TECHNIQUE: Multiaxial CT images of the chest, abdomen, and pelvis were performed following the intravenous administration of contrast. A dose lowering technique was utilized adhering to the principles of ALARA. COMPARISON: Chest CTA and abdomen pelvis CT 01/21/2022. FINDINGS: Chest CT: There is an old moderate superior endplate compression deformity at T3. There is a subacute mild superior endplate compression fracture at T4. No associated retropulsion. Healing right anterior rib fractures are again noted. There are acute left anterior third through fifth rib fractures. There are few additional healing left anterior rib fractures also noted. Mild elevation the right hemidiaphragm. The central airways are patent. No pneumothorax. No pleural effusions. Bibasilar linear densities consistent with subsegmental atelectasis. Otherwise, no new focal lung consolidations to suggest pneumonia. No evidence for pulmonary edema. There is a 1 cm left thyroid nodule. This does not meet CT criteria for follow-up. Mild body wall edema with left breast skin thickening. No change in the anterior diaphragmatic lymphadenopathy. Subcentimeter distal paraesophageal lymph nodes are again noted. There is no hilar lymphadenopathy. Normal esophagus. The heart is normal in size. No evidence for right-sided heart strain. There is extensive bilateral pulmonary emboli with associated subtle embolus at the main pulmonary arteries. Abdomen/pelvis CT: There is a chronic moderate to severe superior endplate compression deformity at L4, unchanged. No pneumoperitoneum. No pneumatosis. Moderate to severe body wall edema is again noted. There is pelvic floor col lapse. The bladder is decompressed. The uterus and bilateral adnexa are unremarkable. No bowel wall thickening or obstruction. There is a large amount of ascites which has slightly progressed. Cirrhotic liver and splenomegaly is again noted. The adrenal glands, pancreas, and kidneys unremarkable. No hydronephrosis. The main portal vein is patent. Mild periportal lymphadenopathy remains unchanged. Normal caliber abdominal aorta. Cholecystectomy. Stable partially calcified pelvic/inguinal lymph nodes. IMPRESSION: 1. Extensive bilateral pulmonary emboli including a saddle embolus within the main pulmonary arteries. No evidence for right-sided heart strain at this time. 2. Acute left anterior third through fifth rib fractures. No pneumothorax. 3. Additional subacute to chronic fractures within the chest and abdomen as described above. 4. Cirrhotic liver with splenomegaly and a large amount of ascites. This has slightly progressed. 5. Moderate to severe body wall edema again noted. 6. Mildly enlarged anterior diaphragmatic and periportal lymph nodes remain unchanged. ACT 112: Negative or not required by law. Electronically signed by: Abe Florentino M.D. 03/17/2022 9:[address] 03/17/22 07:05 CT SCAN OF THE BRAIN WITHOUT IV CONTRAST CLINICAL HISTORY: Fall. COMPARISON STUDY: No priors. TECHNIQUE: Unenhanced axial CT scan of the brain is performed from the vertex to the skull base. A dose lowering technique was utilized adhering to the principles of ALARA. FINDINGS: Brain parenchyma: There is age-related involutional change noting minimal subcortical and periventricular microangiopathic disease. There is no hemorrhage, mass effect, or evidence of acute territorial ischemia by CT criteria. Mccracken-white matter differentiation is preserved. No extra-axial fluid collection is seen. Chronic lacunar infarcts are noted within both basal ganglia as well as the right thalamus. Ventricles, sulci, cisterns: Prominent secondary to involutional change. Intracranial vasculature: There is atherosclerotic calcification of the cavernous carotid and vertebral arteries. Calvarium: The skeletal structures are osteopenic. No depressed calvarial fracture is identified. Sinuses and mastoids: There is trace fluid within the sphenoid sinuses. The remaining visualized paranasal sinuses are clear. The mastoid air cells are well pneumatized. Orbits: The bony orbits are grossly intact. IMPRESSION: There is no hemorrhage, mass effect, or evidence of acute territorial ischemia by CT criteria. ACT 112: Negative or not required by law. Electronically signed by: Felipe Aguirre M.D. 03/17/2022 8:19 AM Knee X-Ray 03/17/22 07:05 LEFT KNEE 3 VIEWS CLINICAL HISTORY: Fall with left knee pain and swelling. FINDINGS: AP, crosstable lateral, and sunrise views of the left knee are obtained. No prior studies are available for comparison at the time of dictation. The skeletal structures are osteopenic. No fracture is seen. The joint spaces of the knee are maintained. A small joint effusion is noted. Soft tissue edema is present throughout the visualized left lower extremity. IMPRESSION: 1. Soft tissue edema with no acute bony abnormality identified. 2. Small joint effusion. Electronically signed by: Felipe Aguirre M.D. 03/17/2022 8:36 AM Venous Doppler Study 03/17/22 10:11 US venous doppler LE BI CLINICAL HISTORY: pe TECHNIQUE: Bilateral lower extremity real-time compression venous ultrasound with Color Doppler imaging. Utilizing real-time ultrasonic imaging multiple real time high-resolution ultrasonic images with compression and noncompression maneuvers of the deep venous system in addition to color doppler imaging were performed from the common femoral vein through the proximal calf veins. COMPARISON: Comparison is made to Doppler ultrasound 01/06/2022 FINDINGS: There is a deep venous thrombus in the left superficial femoral vein in one of the 2 vessels, which also extends into the popliteal vein. Limited evaluation of the calf vessels bilaterally due to overlying edema and tenderness. Impression: 1. Acute appearing occlusive thrombus in the left lower extremity superficial femoral and popliteal veins. 2. Soft tissue edema in the bilateral calf. No definite thrombus of the calf vessels despite limited evaluation. ACT 112: Negative or not required by law. Electronically signed by: Mihai Motley M.D. 03/17/2022 11:46 AM Chest X-Ray 03/25/22 10:16 XR chest 1V portable CLINICAL HISTORY: chest pain TECHNIQUE: Single frontal radiograph of the chest was obtained. Comparison: Comparison is made to chest radiograph 03/18/[address] chest 03/17/2022 FINDINGS: No lines and tubes are seen. The cardiomediastinal silhouette is normal. Lungs are underinflated but clear. No evidence of pleural effusion or pneumothorax. Noted rib fractures are not well seen radiographically. IMPRESSION: Lungs are underinflated however no acute abnormalities are seen. ACT 112: Negative or not required by law. Electronically signed by: Mihai Motley M.D. 03/25/2022 10:37 AM Paracentesis Ultrasound 03/31/22 00:00 PROCEDURE: Ultrasound-Guided Diagnostic/Therapeutic Paracentesis CLINICAL HISTORY: Ascites MEDICATIONS: Subcutaneous Lidocaine 2%. PROCEDURE: The procedure itself was explained to the patient carefully. The patient was brought into the IR suite and a time-out was performed. The patient was positioned supine on the table. Preliminary ultrasound of the abdomen was performed to determine a safe needle entry site. The most appropriate approach for safe needle entry site was planned and the site for puncture was marked. The right lower quadrant was prepped and draped in the usual sterile fashion. Subcutaneous 2% lidocaine was used for local anesthesia along the expected needle tract. Under ultrasound-guidance, an 5 [place] Yueh needle-sheath was inserted carefully into the peritoneal space towards the abdominal ascites fluid collection. The needle was removed and the sheath was connected to tubing and a vacuum suction device. A total of 5000 cc of serous ascites was aspirated. The sheath was removed and a sterile dressing applied. The patient tolerated the procedure well without immediate complications. IMPRESSION: Ultrasound-guided therapeutic paracentesis. Electronically signed by: Mihai Motley M.D. 03/31/2022 12:17 PM KUB X-Ray 04/06/22 09:39 KUB HISTORY: lower abdominal pain COMPARISON: KUB 03/26/2022. FINDINGS: Prior cholecystectomy. Centralization of the bowel loops likely represents ascites. Borderline dilated gas-filled loops of large small bowel are seen throughout the abdomen. This could represent a mild ileus. Overall, this has improved compared the prior study. Overall, suboptimal evaluation due to the patient's body habitus. No renal calculi. No ureteral calculi. No pneumoperitoneum or pneumatosis. IMPRESSION: 1. Centralization of the bowel loops representing underlying ascites. 2. A few borderline dilated gas-filled loops of large and small bowel seen throughout the abdomen. This is improved compared the prior study and favors a mild ileus. A low-grade partial small bowel obstruction is considered less likely but not entirely excluded. ACT 112: Negative or not required by law. Electronically signed by: Abe Florentino M.D. 04/06/2022 1:00 PM Abdomen Ultrasound 04/09/22 10:54 US abdomen ltd ascites CLINICAL HISTORY: Follow up on amount of ascites TECHNIQUE: Real-time grayscale sonographic images of the abdomen were obtained. Comparison: Comparison is made to paracentesis 03/31/2022 FINDINGS/IMPRESSION: Large ascites is seen. Partially visualized is nodular contour of the liver compatible with cirrhosis. ACT 112: Negative or not required by law. Electronically signed by: Mihai Motley M.D. 04/09/2022 2:01 PM
--- NOTE | 2022-04-10 20:44 | Nephrology Progress Note ---
Date of Service April 10, 2022 Assessment & Plan (1) Volume overload: Plan: 61-year-old female admitted to the hospital after she fell from her bed and was found to have left sided rib fracture as well as bilateral significant pulmonary embolism.Nephrology consulted for acute renal failure in a patient with liver cirrhosis with newly diagnosed bilateral pulmonary emboli. Baseline creatinine 1.1. Multiple therapeutic paracteneses this admission, last one 03/31 for 5L. Had BLAIRE earlier this admission, now resolved; bp improved as well. Still significantly overloaded >would continue IV diuresis > daily 1.5-2.5L fluid off -cont bumex 4 mg IV tid and 5 mg daily metolazone -cont K 60 mEq bid -daily bmp -needs daily STANDING weights; needs STRICT I/O -external grewal ok -tap per GI >recommend remove another 5-7 L then change to po diuretics (2) Hepatic cirrhosis: Plan: US paracentesis w cell ct and fluid analysis without evidence of SBP -As per Gastro recs Admission and Anticipated Discharge Date Admission Date: March 17, 2022 Subjective Patient seen and examined at bedside. She is comfortably sitting up on the chair. She denies any shortness of breath. L. Review of Systems Review of Systems: no c/o abdominal pain or discomfort Bilateral pedal edema 2+ Physical Exam Physical Exam: Middle-aged white female who is obese. She is awake, alert, and oriented and was able to give me a detailed account of her medical history and problem. HEENT: Mucous membrane is moist. NECK: Supple and obese neck. Could not appreciate JVD. CHEST: Bilateral decreased breath sound. Poor inspiratory effort limiting the quality of exam. CARDIOVASCULAR: S1 and S2 regular. ABDOMEN: Soft, distended with significant ascites. EXTREMITIES: Bilaterally 2+ edema, pitting type and very densely edematous. NEUROLOGIC: Normal speech. Awake, alert, oriented x3. She does not seem confused at this time and was able to give a detailed account of her medical history. Normal speech. Results & Data ([facility]) Vital Signs (Past 12 Hours) Vital Signs Temp Pulse Pulse Resp BP BP Pulse Ox 04/10/22 19:00 36.7 C 86 20 129/76 95 04/10/22 16:16 36.8 C 94 H 18 102/70 97 04/10/22 14:16 93 H 04/10/22 11:34 36.3 C L 93 H 17 125/82 96 04/10/22 09:47 86 O2 Del Method 04/10/22 19:00 Room Air 04/10/22 16:16 Room Air 04/10/22 14:16 04/10/22 11:34 Room Air 04/10/22 09:47 Laboratory Results 04/10/22 05:59 04/10/22 05:59
[2022-04-11] MEDS: BUMETANIDE IV SCH ×4 (01:00→17:00)
[2022-04-11] MEDS: APIXABAN 5 MG TABLET PO SCH (01:01)
[2022-04-11 06:40] LABS: Basophils # (auto) 0.09 K/uL (0-0.2); Basophils % (auto) 2.1 %; Eosinophils # (auto) 0.15 K/uL (0-0.50); Eosinophils % (auto) 3.5 %; Hematocrit (blood only) 30.7 % (34.1-44.9); Hemoglobin 10.2 g/dl (12.0-16.0); Immature Granulocytes # (auto) 0.02 K/uL (0.00-0.02); Immature Granulocytes % (auto) 0.5 %; Lymphocytes # (auto) 1.05 K/uL (1.2-3.4); Lymphocytes % (auto) 24.8 %; Mean Corpuscular Hemoglobin 29.7 pg (25.0-34.0); Mean Corpuscular Hgb Conc 33.2 g/dL (32.0-36.0); Mean Corpuscular Volume 89.5 fL (80.0-100.0); Mean Platelet Volume 9.4 fL (9.4-12.3); Monocytes # (auto) 0.39 K/uL (0.24-0.82); Monocytes % (auto) 9.2 %; Neutrophils # (auto) 2.54 K/uL (1.4-6.5); Neutrophils % (auto) 59.9 %; Platelet Count 164 K/uL (130-400); RDW Coefficient of Variation 15.4 % (11.5-14.5); RDW Standard Deviation 50.7 fL (36.4-46.3); Red Blood Count 3.43 M/uL (3.93-5.22); White Blood Count 4.24 K/ul (4.8-10.8)
[2022-04-11 07:05] LABS: BUN Creatinine Ratio 24.5 (10-20); Calcium 9.1 mg/dl (8.5-10.1); Creatinine Clr Calc Pharmacy 67.4 ml/min; Est GFR (African American) 66.6 ml/min; Est GFR (Non-African American) 57.4 ml/min; Potassium 3.6 mmol/L (3.5-5.1)
[2022-04-11 07:13] LABS: Albumin Level 3.2 gm/dl (3.4-5.0); Bilirubin,Total 0.8 mg/dl (0.2-1.0); Globulin 3.1 gm/dl (2.5-4.0); Total Protein 6.3 gm/dl (6.0-8.3)
[2022-04-11] MEDS: INSULIN ASPART PER UNIT SC SCH ×4 (08:39→20:06)
[2022-04-11] MEDS: DOCUSATE SODIUM 100 MG CAP PO SCH ×2 (08:40→20:06)
[2022-04-11] MEDS: POTASSIUM CHLORIDE CRTAB 20 MEQ TABCR PO SCH ×3 (08:42→20:07)
[2022-04-11] MEDS: CHOLECALCIFEROL 1,000 UNITS 25 MCG TAB PO SCH (08:42)
[2022-04-11] MEDS: MAGNESIUM CHLORIDE W/CALCIUM 64MG DELAYED REL TAB PO SCH ×2 (08:42→20:07)
[2022-04-11] MEDS: LANTUS PER UNIT CHARGE SQ SCH (08:43)
[2022-04-11] MEDS: metOLazone 5 MG TABLET PO SCH (08:43)
--- NOTE | 2022-04-11 12:02 | Hospitalist Progress Note ---
Date of Service April 11, 2022 Assessment & Plan (1) Volume overload: Plan: (1) Saddle pulmonary embolus: Plan: Acute Saddle pulmonary embolism Acute DVT of Left LE Hx of COVID infection in Jul was vaccinated in 2020 x 2 doses --CT Chest:Extensive bilateral pulmonary emboli including a saddle embolus within the main pulmonary arteries. No evidence for right-sided heart strain at this time. Acute left anterior third through fifth rib fractures. No pneumothorax. Additional subacute to chronic fractures within the chest and abdomen as described above. Cirrhotic liver with splenomegaly and a large amount of ascites. This has slightly progressed. Moderate to severe body wall edema again noted. Mildly enlarged anterior diaphragmatic and periportal lymph nodes remain unchanged. --ECHO:Aortic valve sclerosis mild, without significant aortic valvular stenosis. Left ventricle cavity is small. Moderate concentric LVH. Left ventricle wall motion is normal. Left ventricle is hyperdynamic. EF greater than 70%. Neck: Sign present with hypokinesis of the right ventricular apex with sparing of the basilar structures and mild apical dilatation consistent with acute pulmonary embolus. Trace tricuspid insufficiency is present --Venous Doppler:Acute appearing occlusive thrombus in the left lower extremity superficial femoral and popliteal veins. Soft tissue edema in the bilateral calf. No definite thrombus of the calf vessels despite limited evaluation. If any clinical deterioration, then tPA will be pursued Plan: -Stable from PE standpoint. Not on supplemental oxygen. -Eliquis on hold for paracentesis on Wednesday. Started on subcu heparin for DVT prophylaxis (2) Hepatic cirrhosis: Plan: - Nonalcoholic, hepatitis panel was conducted 01/27/2022 as reviewed in outpatient epic and is negative for hep A, B, C - Scheduled with Dr. Mace as outpatient with hepatology on 05/05/22: In end of December pt was placed on lasix 20 mg daily and spironolactone 50 mg daily, lasix was increased to 40 mg daily on 02/11. -Patient underwent paracentesis on 03/20( 3 liters), 03/26( 3 Litres) and 03/31(5 litres). -Nephrology was consulted and patient was placed on Bumex every 6 hours and metolazone 5 mg once daily. Patient is -28 L since admission. Last ultrasound was on 04/09; large ascites seen. Plan: -Patient continues to show good response to IV diuresis. As per nephrology, recommend to remove 5 to 7 L and changed to p.o. diuretics. Patient currently on Bumex 4 mg IV 4 times daily and 5 mg daily metolazone. Electrolytes reviewed; continue on potassium chloride 3 times a day for now. -Ultrasound reviewed; large ascites present. Plan to send cell count, culture, cytology, total protein and albumin. 25% albumin 25 g to be given before and after the procedure. Discussed with radiology regarding the timing; paracentesis to be done on Wednesday. Hold Eliquis for now. Started on subcu heparin for DVT prophylaxis. -Strict I/O - No indication for Pleurx catheter due to sign risk of infection. Diarrhea C. difficile negative Imodium as needed Resolved (3) BLAIRE (acute kidney injury): Plan: - Resolved - Likely contrast induced BLAIRE. - Cr peaked to 1.51 and down trended to baseline. Plan is to continue current diuretics and monitor renal function closely. (4) Diabetes: Plan: -Last A1c was 9.1 on 01/13/2022 -Holding metformin Continue Insulin -POCT glucose within range. (5) Asthma: Plan: -Continue albuterol sulfate (6) Rib fractures: Plan: Left-sided rib fractures Nondisplaced Secondary to fall Continue incentive spirometer Pain control (7) Fall: Plan: Mechanical fall Fall precautions PT/OT Abnormal UA Ruled out UTI Urine Cx Mixed ashley Empirically received Rocephin for 3 days DVT Px: Eliquis on hold. Subcu heparin CODE STATUS: Full code Disposition Rehab when medically stable Admission and Anticipated Discharge Date Admission Date: March 17, 2022 Subjective Patient seen and examined at bedside. She is tired due to waking up all night to urinate. No complains of abdominal discomfort, fever or chills. Review of Systems Review of Systems: All systems reviewed & are unremarkable except as noted in Subjective Physical Exam Physical Exam: General- oriented x 3, not in distress, speaks in sentences with no effort or accessory muscle use Eyes- anicteric Neck- no JVD Lungs- clear BS bilaterally, no rales/wheezes Heart- normal rate, regular rhythm; no murmurs Abdomen-distended compared to previous day. No tenderness appreciated. Extremities- mild pretibial edema, no calf tenderness Neuro- alert, oriented x 3; no gross focal neurologic deficits Skin- warm & dry Results & Data Results & Data ([facility]) Vital Signs (Past 12 Hours) Vital Signs Temp Pulse Pulse Resp BP BP Pulse Ox 04/11/22 11:10 36.6 C 88 17 102/55 L 94 04/11/22 07:55 84 04/11/22 07:21 36.8 C 91 H 17 109/64 95 04/11/22 02:29 36.7 C 85 20 125/66 95 O2 Del Method O2 Flow Rate 04/11/22 11:10 Room Air 04/11/22 07:55 04/11/22 07:21 Nasal Cannula 2 04/11/22 02:29 Room Air
[2022-04-11] MEDS: HEPARIN SOD 5,000 UNIT/0.5 ML VIAL SQ SCH ×2 (14:34→22:25)
[2022-04-12] MEDS: BUMETANIDE IV SCH ×3 (00:34→12:13)
[2022-04-12] MEDS: HEPARIN SOD 5,000 UNIT/0.5 ML VIAL SQ SCH ×3 (05:18→21:01)
[2022-04-12 06:29] LABS: Basophils # (auto) 0.09 K/uL (0-0.2); Basophils % (auto) 2.1 %; Eosinophils # (auto) 0.12 K/uL (0-0.50); Eosinophils % (auto) 2.9 %; Hematocrit (blood only) 31.2 % (34.1-44.9); Hemoglobin 10.4 g/dl (12.0-16.0); Immature Granulocytes # (auto) 0.01 K/uL (0.00-0.02); Immature Granulocytes % (auto) 0.2 %; Lymphocytes # (auto) 1.14 K/uL (1.2-3.4); Lymphocytes % (auto) 27.1 %; Mean Corpuscular Hemoglobin 29.8 pg (25.0-34.0); Mean Corpuscular Hgb Conc 33.3 g/dL (32.0-36.0); Mean Corpuscular Volume 89.4 fL (80.0-100.0); Mean Platelet Volume 9.4 fL (9.4-12.3); Monocytes # (auto) 0.44 K/uL (0.24-0.82); Monocytes % (auto) 10.5 %; Neutrophils % (auto) 57.2 %; Platelet Count 157 K/uL (130-400); RDW Coefficient of Variation 15.2 % (11.5-14.5); RDW Standard Deviation 50.2 fL (36.4-46.3); Red Blood Count 3.49 M/uL (3.93-5.22)
[2022-04-12 07:01] LABS: Albumin Level 3.1 gm/dl (3.4-5.0); BUN Creatinine Ratio 23.5 (10-20); Bilirubin,Total 0.8 mg/dl (0.2-1.0); Creatinine Clr Calc Pharmacy 69.7 ml/min; Est GFR (African American) 69.7 ml/min; Est GFR (Non-African American) 60.2 ml/min; Globulin 3.1 gm/dl (2.5-4.0); Potassium 3.6 mmol/L (3.5-5.1); Total Protein 6.2 gm/dl (6.0-8.3)
--- NOTE | 2022-04-12 07:42 | Hospitalist Progress Note ---
Date of Service April 12, 2022 Assessment & Plan (1) Volume overload: Plan: (1) Saddle pulmonary embolus: Plan: Acute Saddle pulmonary embolism Acute DVT of Left LE Hx of COVID infection in Jul was vaccinated in 2020 x 2 doses --CT Chest:Extensive bilateral pulmonary emboli including a saddle embolus within the main pulmonary arteries. No evidence for right-sided heart strain at this time. Acute left anterior third through fifth rib fractures. No pneumothorax. Additional subacute to chronic fractures within the chest and abdomen as described above. Cirrhotic liver with splenomegaly and a large amount of ascites. This has slightly progressed. Moderate to severe body wall edema again noted. Mildly enlarged anterior diaphragmatic and periportal lymph nodes remain unchanged. --ECHO:Aortic valve sclerosis mild, without significant aortic valvular stenosis. Left ventricle cavity is small. Moderate concentric LVH. Left ventricle wall motion is normal. Left ventricle is hyperdynamic. EF greater than 70%. Neck: Sign present with hypokinesis of the right ventricular apex with sparing of the basilar structures and mild apical dilatation consistent with acute pulmonary embolus. Trace tricuspid insufficiency is present --Venous Doppler:Acute appearing occlusive thrombus in the left lower extremity superficial femoral and popliteal veins. Soft tissue edema in the bilateral calf. No definite thrombus of the calf vessels despite limited evaluation. If any clinical deterioration, then tPA will be pursued Plan: -Stable from PE standpoint. Not on supplemental oxygen. -Eliquis on hold for paracentesis on Wednesday. Started on subcu heparin for DVT prophylaxis (2) Hepatic cirrhosis: Plan: - Nonalcoholic, hepatitis panel was conducted 01/27/2022 as reviewed in outpatient epic and is negative for hep A, B, C - Scheduled with Dr. Mace as outpatient with hepatology on 05/05/22: In end of December pt was placed on lasix 20 mg daily and spironolactone 50 mg daily, lasix was increased to 40 mg daily on 02/11. -Patient underwent paracentesis on 03/20( 3 liters), 03/26( 3 Litres) and 03/31(5 litres). -Nephrology was consulted and patient was placed on Bumex every 6 hours and metolazone 5 mg once daily. Patient is -28 L since admission. Last ultrasound was on 04/09; large ascites seen. Plan: -Patient continues to show good response to IV diuresis. As per nephrology, recommend to remove 5 to 7 L and changed to p.o. diuretics. Patient currently on Bumex 4 mg IV 4 times daily and 5 mg daily metolazone. Electrolytes reviewed; continue on potassium chloride 3 times a day for now. will hold off diuretics on Wednesday. -Ultrasound reviewed; large ascites present. Plan to send cell count, culture, cytology, total protein and albumin. 25% albumin 25 g to be given before and after the procedure. Discussed with radiology regarding the timing; paracentesis to be done on Wednesday. Hold Eliquis for now. Started on subcu heparin for DVT prophylaxis. -Strict I/O - No indication for Pleurx catheter due to sign risk of infection. Diarrhea C. difficile negative Imodium as needed Resolved (3) BLAIRE (acute kidney injury): Plan: - Resolved - Likely contrast induced BLAIRE. - Cr peaked to 1.51 and down trended to baseline. Plan is to continue current diuretics and monitor renal function closely. (4) Diabetes: Plan: -Last A1c was 9.1 on 01/13/2022 -Holding metformin Continue Insulin -POCT glucose within range. (5) Asthma: Plan: -Continue albuterol sulfate (6) Rib fractures: Plan: Left-sided rib fractures Nondisplaced Secondary to fall Continue incentive spirometer Pain control (7) Fall: Plan: Mechanical fall Fall precautions PT/OT Abnormal UA Ruled out UTI Urine Cx Mixed ashley Empirically received Rocephin for 3 days DVT Px: Eliquis on hold. Subcu heparin CODE STATUS: Full code Disposition Rehab when medically stable Admission and Anticipated Discharge Date Admission Date: March 17, 2022 Subjective Patient seen and examined at bedside. She complains of mild discomfort in her abdomen. She denies any fever, chills or shortness of breath. Review of Systems Review of Systems: All systems reviewed & are unremarkable except as noted in Subjective Physical Exam Physical Exam: General- oriented x 3, not in distress, speaks in sentences with no effort or accessory muscle use Eyes- anicteric Neck- no JVD Lungs- clear BS bilaterally, no rales/wheezes Heart- normal rate, regular rhythm; no murmurs Abdomen-distended compared to previous day. No tenderness appreciated. Extremities- mild pretibial edema, no calf tenderness Neuro- alert, oriented x 3; no gross focal neurologic deficits Skin- warm & dry Results & Data Results & Data ([facility]) Vital Signs (Past 12 Hours) Vital Signs Temp Pulse Pulse Pulse Resp BP Pulse Ox 04/12/22 07:23 36.7 C 91 H 16 109/75 94 04/12/22 00:00 95 H 04/12/22 04:10 36.9 C 88 18 111/66 93 04/11/22 23:09 36.9 C 96 H 16 110/64 94 04/11/22 19:45 37.0 C 88 19 113/63 97 O2 Del Method 04/12/22 07:23 Room Air 04/12/22 00:00 04/12/22 04:10 Room Air 04/11/22 23:09 Room Air 04/11/22 19:45 Room Air Laboratory Results Laboratory Results WBC 4.20 K/ul (4.8-10.8) L 04/12/22 05:17 RBC 3.49 M/uL (3.93-5.22) L 04/12/22 05:17 Hgb 10.4 g/dl (12.0-16.0) L 04/12/22 05:17 Hct 31.2 % (34.1-44.9) L 04/12/22 05:17 MCV 89.4 fL (80.0-100.0) 04/12/22 05:17 MCH 29.8 pg (25.0-34.0) 04/12/22 05:17 MCHC 33.3 g/dL (32.0-36.0) 04/12/22 05:17 RDW Std Deviation 50.2 fL (36.4-46.3) H 04/12/22 05:17 RDW Coeff of Samy 15.2 % (11.5-14.5) H 04/12/22 05:17 Plt Count 157 K/uL (130-400) 04/12/22 05:17 MPV 9.4 fL (9.4-12.3) 04/12/22 05:17 Immature Gran % (Auto) 0.2 % 04/12/22 05:17 Neut % (Auto) 57.2 % 04/12/22 05:17 Lymph % (Auto) 27.1 % 04/12/22 05:17 [place] % (Auto) 10.5 % 04/12/22 05:17 Eos % (Auto) 2.9 % 04/12/22 05:17 Baso % (Auto) 2.1 % 04/12/22 05:17 Neut # (Auto) 2.40 K/uL (1.4-6.5) 04/12/22 05:17 Lymph # (Auto) 1.14 K/uL (1.2-3.4) L 04/12/22 05:17 [place] # (Auto) 0.44 K/uL (0.24-0.82) 04/12/22 05:17 Eos # (Auto) 0.12 K/uL (0-0.50) 04/12/22 05:17 Baso # (Auto) 0.09 K/uL (0-0.2) 04/12/22 05:17 Immature Gran # (Auto) 0.01 K/uL (0.00-0.02) 04/12/22 05:17 Hypersegmented Neuts Occasional 03/19/22 05:35 PT 15.0 Seconds (9.0-12.0) H 04/09/22 06:00 INR 1.4 (0.9-1.1) H 04/09/22 06:00 APTT 49.0 Seconds (21.0-31.0) H* 03/30/22 23:52 PTT Ratio 1.8 03/30/22 23:52 ABG pH 7.44 (7.35-7.45) 03/18/22 23:23 ABG pCO2 45 mmHg (35-46) 03/18/22 23:23 ABG pO2 102 mmHg (80-95) H 03/18/22 23:23 ABG HCO3 31 mmol/L (19-24) H 03/18/22 23:23 ABG O2 Saturation 99.0 % (90-95) H 03/18/22 23:23 ABG Base Excess 5.6 mEq/L (-9-1.8) H 03/18/22 23:23 Khari Test Pos (Pos) 03/18/22 23:23 Oxygen Given 2L 03/18/22 23:23 Sodium 139 mmol/L (136-145) 04/12/22 05:17 Potassium 3.6 mmol/L (3.5-5.1) 04/12/22 05:17 Chloride 96 mmol/L (98-107) L 04/12/22 05:17 Carbon Dioxide 36 mmol/L (21-32) H 04/12/22 05:17 Anion Gap 7 (3-11) 04/12/22 05:17 BUN 24 mg/dl (6-23) H 04/12/22 05:17 Creatinine 1.02 mg/dl (0.6-1.2) 04/12/22 05:17 Est Cr Clr Drug Dosing 69.7 ml/min 04/12/22 05:17 Est GFR ( Amer) 69.7 ml/min 04/12/22 05:17 Est GFR (Non-Af Amer) 60.2 ml/min 04/12/22 05:17 BUN/Creatinine Ratio 23.5 (10-20) H 04/12/22 05:17 Glucose 85 mg/dl (70-99(Fasting)) 04/12/22 05:17 POC Glucose 149 mg/dl (70-99) H 04/12/22 11:03 Calcium 9.0 mg/dl (8.5-10.1) 04/12/22 05:17 Phosphorus 3.7 mg/dl (2.5-4.9) 03/30/22 05:49 Magnesium 1.9 mg/dl (1.7-2.4) 03/30/22 05:49 Total Bilirubin 0.8 mg/dl (0.2-1.0) 04/12/22 05:17 Direct Bilirubin 0.2 mg/dl (0-0.2) 03/20/22 06:30 AST 23 U/L (13-39) 04/12/22 05:17 ALT 11 U/L (7-52) 04/12/22 05:17 Alkaline Phosphatase 97 U/L (34-104) 04/12/22 05:17 Troponin I High Sens 35.1 pg/ml (0-14) H 03/25/22 15:57 Total Protein 6.2 gm/dl (6.0-8.3) 04/12/22 05:17 Albumin 3.1 gm/dl (3.4-5.0) L 04/12/22 05:17 Globulin 3.1 gm/dl (2.5-4.0) 04/12/22 05:17 Albumin/Globulin Ratio 1.0 (0.9-2) 04/12/22 05:17 25-OH Vitamin D Total 13.8 ng/ml (30-100) L 03/17/22 11:30 Urine Color Dark Yellow 03/17/22 07:50 Urine Appearance Clear (Clear) 03/17/22 07:50 Urine pH 5.0 (4.5-7.5) 03/17/22 07:50 Ur Specific [place] 1.018 (1.000-1.030) 03/17/22 07:50 Urine Protein 1+ (Negative) H 03/17/22 07:50 Urine Glucose (UA) Negative (Negative) 03/17/22 07:50 Urine Ketones Trace (Negative) H 03/17/22 07:50 Urine Blood Negative (Negative) 03/17/22 07:50 Urine Nitrite Negative (Negative) 03/17/22 07:50 Urine Bilirubin 1+ (Negative) H 03/17/22 07:50 Urine Urobilinogen Negative (Negative) 03/17/22 07:50 Ur Leukocyte Esterase 2+ (Negative) H 03/17/22 07:50 Urine WBC (Auto) 5-10 /hpf (0-5) H 03/17/22 07:50 Urine RBC (Auto) 5-10 /hpf (0-4) H 03/17/22 07:50 U Hyaline Cast (Auto) 5-10 /lpf (0-5) H 03/17/22 07:50 U Epithel Cells (Auto) >30 /lpf (0-5) H 03/17/22 07:50 Urine Bacteria (Auto) 1+ (Negative) H 03/17/22 07:50 Ur Random Creatinine 105.8 mg/dl 03/17/22 17:50 Ur Random Sodium 76 mmol/L 03/17/22 17:50 Urine Sodium 53 mmol/L 04/08/22 13:00 Urine Potassium 71.1 mmol/L 04/08/22 13:00 Urine Chloride 104 mmol/L 04/08/22 13:00 Fluid Neutrophils % 8 % 03/20/22 14:20 Fluid Lymphocytes % 21 % 03/20/22 14:20 Fluid Eosinophils % 1 % 03/20/22 14:20 Fluid [place] % 70 % 03/20/22 14:20 Fluid Comment 03/20/22 14:20 Peritoneal Color Yellow 03/20/22 14:20 Peritoneal Appearance Clear 03/20/22 14:20 Peritoneal WBC 125 /ul (0-300) 03/20/22 14:20 Peritoneal RBC < 2000 /uL 03/20/22 14:20 Peritoneal Tot Protein 3.6 gm/dl 03/20/22 14:20 Peritoneal Tot Protein Cancelled 03/20/22 14:20 Peritoneal Albumin 2.0 gm/dl 03/20/22 14:20 Stl C. diff Tox B Gene Negative Cdiff Gene (Neg) 04/04/22 16:18 SARS-CoV-2, RNA, NAAT NEGATIVE (NEGATIVE) 03/17/22 11:50 Impressions Abdomen/Pelvis CT 03/17/22 07:[address] WITH CONTRAST, ABDOMEN AND PELVIS CT WITH INTRAVENOUS CONTRAST CT DOSE: 3804.89 mGy.cm HISTORY: fall, left chest pain. Left flank pain. TECHNIQUE: Multiaxial CT images of the chest, abdomen, and pelvis were performed following the intravenous administration of contrast. A dose lowering technique was utilized adhering to the principles of ALARA. COMPARISON: Chest CTA and abdomen pelvis CT 01/21/2022. FINDINGS: Chest CT: There is an old moderate superior endplate compression deformity at T3. There is a subacute mild superior endplate compression fracture at T4. No associated retropulsion. Healing right anterior rib fractures are again noted. There are acute left anterior third through fifth rib fractures. There are few additional healing left anterior rib fractures also noted. Mild elevation the right hemidiaphragm. The central airways are patent. No pneumothorax. No pleural effusions. Bibasilar linear densities consistent with subsegmental atelectasis. Otherwise, no new focal lung consolidations to suggest pneumonia. No evidence for pulmonary edema. There is a 1 cm left thyroid nodule. This does not meet CT criteria for follow-up. Mild body wall edema with left breast skin thickening. No change in the anterior diaphragmatic lymphadenopathy. Subcentimeter distal paraesophageal lymph nodes are again noted. There is no hilar lymphadenopathy. Normal esophagus. The heart is normal in size. No evidence for right-sided heart strain. There is extensive bilateral pulmonary emboli with associated subtle embolus at the main pulmonary arteries. Abdomen/pelvis CT: There is a chronic moderate to severe superior endplate compression deformity at L4, unchanged. No pneumoperitoneum. No pneumatosis. Moderate to severe body wall edema is again noted. There is pelvic floor collapse. The bladder is decompressed. The uterus and bilateral adnexa are unremarkable. No bowel wall thickening or obstruction. There is a large amount of ascites which has slightly progressed. Cirrhotic liver and splenomegaly is again noted. The adrenal glands, pancreas, and kidneys unremarkable. No hydronephrosis. The main portal vein is patent. Mild periportal lymphadenopathy remains unchanged. Normal caliber abdominal aorta. Cholecystectomy. Stable partially calcified pelvic/inguinal lymph nodes. IMPRESSION: 1. Extensive bilateral pulmonary emboli including a saddle embolus within the main pulmonary arteries. No evidence for right-sided heart strain at this time. 2. Acute left anterior third through fifth rib fractures. No pneumothorax. 3. Additional subacute to chronic fractures within the chest and abdomen as described above. 4. Cirrhotic liver with splenomegaly and a large amount of ascites. This has slightly progressed. 5. Moderate to severe body wall edema again noted. 6. Mildly enlarged anterior diaphragmatic and periportal lymph nodes remain unchanged. ACT 112: Negative or not required by law. Electronically signed by: Abe Florentino M.D. 03/17/2022 9:[address] 03/17/22 07:05 CT SCAN OF THE CERVICAL SPINE CLINICAL HISTORY: Trauma. Fall. COMPARISON STUDY: No priors. TECHNIQUE: CT scan of the cervical spine is performed from the skull base to the upper thoracic spine. Images are reviewed in the axial, sagittal, and coronal planes. IV contrast was not administered for this examination. A dose lowering technique was utilized adhering to the principles of ALARA. FINDINGS: Skeletal structures: The skeletal structures are osteopenic. There is no evidence of fracture or subluxation involving the cervical spine. Vertebral body height and alignment are maintained. There is straightening of the cervical lordosis. The odontoid process and lateral masses are intact. The atlantoaxial articulation is preserved noting minimal productive degenerative change. The spinous processes appear intact. Intervertebral discs: There is moderate disc space narrowing at C5-C6. Mild narrowing is seen at the remaining cervical levels. Central canal: Posterior disc osteophyte complexes at C4-C5 and C5-C6 may contribute to mild acquired compromise of the central canal. Soft tissues: The prevertebral and paraspinous soft tissues are within normal limits. There is atherosclerotic calcification of the carotid bulbs. Calvarium: The visualized calvarium at the skull base appears intact. Brain parenchyma: Partially visualized brain parenchyma at the skull base is within normal limits. Sinuses and mastoids: Trace fluid is noted in the sphenoid sinuses. The mastoid air cells are well pneumatized. Lung apices: Clear as visualized. IMPRESSION: 1. There is no evidence of fracture or subluxation involving the cervical spine. 2. Osteopenia and mild spondylotic change as above. ACT 112: Negative or not required by law. Electronically signed by: Felipe Aguirre M.D. 03/17/2022 8:[address] 03/17/22 07:[address] WITH CONTRAST, ABDOMEN AND PELVIS CT WITH INTRAVENOUS CONTRAST CT DOSE: 3804.89 mGy.cm HISTORY: fall, left chest pain. Left flank pain. TECHNIQUE: Multiaxial CT images of the chest, abdomen, and pelvis were performed following the intravenous administration of contrast. A dose lowering technique was utilized adhering to the principles of ALARA. COMPARISON: Chest CTA and abdomen pelvis CT 01/21/2022. FINDINGS: Chest CT: There is an old moderate superior endplate compression deformity at T3. There is a subacute mild superior endplate compression fracture at T4. No associated retropulsion. Healing right anterior rib fractures are again noted. There are acute left anterior third through fifth rib fractures. There are few additional healing left anterior rib fractures also noted. Mild elevation the right hemidiaphragm. The central airways are patent. No pneumothorax. No pleural effusions. Bibasilar linear densities consistent with subsegmental atelectasis. Otherwise, no new focal lung consolidations to suggest pneumonia. No evidence for pulmonary edema. There is a 1 cm left thyroid nodule. This does not meet CT criteria for follow-up. Mild body wall edema with left breast skin thickening. No change in the anterior diaphragmatic lymphadenopathy. Subcentimeter distal paraesophageal lymph nodes are again noted. There is no hilar lymphadenopathy. Normal esophagus. The heart is normal in size. No evidence for right-sided heart strain. There is extensive bilateral pulmonary emboli with associated subtle embolus at the main pulmonary arteries. Abdomen/pelvis CT: There is a chronic moderate to severe superior endplate compression deformity at L4, unchanged. No pneumoperitoneum. No pneumatosis. Moderate to severe body wall edema is again noted. There is pelvic floor collapse. The bladder is decompressed. The uterus and bilateral adnexa are unremarkable. No bowel wall thickening or obstruction. There is a large amount of ascites which has slightly progressed. Cirrhotic liver and splenomegaly is again noted. The adrenal glands, pancreas, and kidneys unremarkable. No hydronephrosis. The main portal vein is patent. Mild periportal lymphadenopathy remains unchanged. Normal caliber abdominal aorta. Cholecystectomy. Stable partially calcified pelvic/inguinal lymph nodes. IMPRESSION: 1. Extensive bilateral pulmonary emboli including a saddle embolus within the main pulmonary arteries. No evidence for right-sided heart strain at this time. 2. Acute left anterior third through fifth rib fractures. No pneumothorax. 3. Additional subacute to chronic fractures within the chest and abdomen as described above. 4. Cirrhotic liver with splenomegaly and a large amount of ascites. This has slightly progressed. 5. Moderate to severe body wall edema again noted. 6. Mildly enlarged anterior diaphragmatic and periportal lymph nodes remain unchanged. ACT 112: Negative or not required by law. Electronically signed by: Abe Florentino M.D. 03/17/2022 9:[address] 03/17/22 07:05 CT SCAN OF THE BRAIN WITHOUT IV CONTRAST CLINICAL HISTORY: Fall. COMPARISON STUDY: No priors. TECHNIQUE: Unenhanced axial CT scan of the brain is performed from the vertex to the skull base. A dose lowering technique was utilized adhering to the principles of ALARA. FINDINGS: Brain parenchyma: There is age-related involutional change noting minimal subcortical and periventricular microangiopathic disease. There is no hemorrhage, mass effect, or evidence of acute territorial ischemia by CT criteria. Mccracken-white matter differentiation is preserved. No extra-axial fluid collection is seen. Chronic lacunar infarcts are noted within both basal ganglia as well as the right thalamus. Ventricles, sulci, cisterns: Prominent secondary to involutional change. Intracranial vasculature: There is atherosclerotic calcification of the cavernous carotid and vertebral arteries. Calvarium: The skeletal structures are osteopenic. No depressed calvarial fracture is identified. Sinuses and mastoids: There is trace fluid within the sphenoid sinuses. The remaining visualized paranasal sinuses are clear. The mastoid air cells are well pneumatized. Orbits: The bony orbits are grossly intact. IMPRESSION: There is no hemorrhage, mass effect, or evidence of acute territorial ischemia by CT criteria. ACT 112: Negative or not required by law. Electronically signed by: Felipe Aguirre M.D. 03/17/2022 8:19 AM Knee X-Ray 03/17/22 07:05 LEFT KNEE 3 VIEWS CLINICAL HISTORY: Fall with left knee pain and swelling. FINDINGS: AP, crosstable lateral, and sunrise views of the left knee are obtained. No prior studies are available for comparison at the time of dictation. The skeletal structures are osteopenic. No fracture is seen. The joint spaces of the knee are maintained. A small joint effusion is noted. Soft tissue edema is present throughout the visualized left lower extremity. IMPRESSION: 1. Soft tissue edema with no acute bony abnormality identified. 2. Small joint effusion. Electronically signed by: Felipe Aguirre M.D. 03/17/2022 8:36 AM Venous Doppler Study 03/17/22 10:11 US venous doppler LE BI CLINICAL HISTORY: pe TECHNIQUE: Bilateral lower extremity real-time compression venous ultrasound with Color Doppler imaging. Utilizing real-time ultrasonic imaging multiple real time high-resolution ultrasonic images with compression and noncompression maneuvers of the deep venous system in addition to color doppler imaging were performed from the common femoral vein through the proximal calf veins. COMPARISON: Comparison is made to Doppler ultrasound 01/06/2022 FINDINGS: There is a deep venous thrombus in the left superficial femoral vein in one of the 2 vessels, which also extends into the popliteal vein. Limited evaluation of the calf vessels bilaterally due to overlying edema and tenderness. Impression: 1. Acute appearing occlusive thrombus in the left lower extremity superficial femoral and popliteal veins. 2. Soft tissue edema in the bilateral calf. No definite thrombus of the calf vessels despite limited evaluation. ACT 112: Negative or not required by law. Electronically signed by: Mihai Motley M.D. 03/17/2022 11:46 AM Chest X-Ray 03/25/22 10:16 XR chest 1V portable CLINICAL HISTORY: chest pain TECHNIQUE: Single frontal radiograph of the chest was obtained. Comparison: Comparison is made to chest radiograph 03/18/[address] chest 03/17/2022 FINDINGS: No lines and tubes are seen. The cardiomediastinal silhouette is normal. Lungs are underinflated but clear. No evidence of pleural effusion or pneumothorax. Noted rib fractures are not well seen radiographically. IMPRESSION: Lungs are underinflated however no acute abnormalities are seen. ACT 112: Negative or not required by law. Electronically signed by: Mihai Motley M.D. 03/25/2022 10:37 AM Paracentesis Ultrasound 03/31/22 00:00 PROCEDURE: Ultrasound-Guided Diagnostic/Therapeutic Paracentesis CLINICAL HISTORY: Ascites MEDICATIONS: Subcutaneous Lidocaine 2%. PROCEDURE: The procedure itself was explained to the patient carefully. The patient was brought into the IR suite and a time-out was performed. The patient was positioned supine on the table. Preliminary ultrasound of the abdomen was performed to determine a safe needle entry site. The most appropriate approach for safe needle entry site was planned and the site for puncture was marked. The right lower quadrant was prepped and draped in the usual sterile fashion. Subcutaneous 2% lidocaine was used for local anesthesia along the expected needle tract. Under ultrasound-guidance, an 5 [employer] needle-sheath was inserted carefully into the peritoneal space towards the abdominal ascites fluid collection. The needle was removed and the sheath was connected to tubing and a vacuum suction device. A total of 5000 cc of serous ascites was aspirated. The sheath was removed and a sterile dressing applied. The patient tolerated the procedure well without immediate complications. IMPRESSION: Ultrasound-guided therapeutic paracentesis. Electronically signed by: Mihai Motley M.D. 03/31/2022 12:17 PM KUB X-Ray 04/06/22 09:39 KUB HISTORY: lower abdominal pain COMPARISON: KUB 03/26/2022. FINDINGS: Prior cholecystectomy. Centralization of the bowel loops likely represents ascites. Borderline dilated gas-filled loops of large small bowel are seen throughout the abdomen. This could represent a mild ileus. Overall, this has improved compared the prior study. Overall, suboptimal evaluation due to the patient's body habitus. No renal calculi. No ureteral calculi. No pneumoperitoneum or pneumatosis. IMPRESSION: 1. Centralization of the bowel loops representing underlying ascites. 2. A few borderline dilated gas-filled loops of large and small bowel seen throughout the abdomen. This is improved compared the prior study and favors a mild ileus. A low-grade partial small bowel obstruction is considered less likely but not entirely excluded. ACT 112: Negative or not required by law. Electronically signed by: Abe Florentino M.D. 04/06/2022 1:00 PM Abdomen Ultrasound 04/09/22 10:54 US abdomen ltd ascites CLINICAL HISTORY: Follow up on amount of ascites TECHNIQUE: Real-time grayscale sonographic images of the abdomen were obtained. Comparison: Comparison is made to paracentesis 03/31/2022 FINDINGS/IMPRESSION: Large ascites is seen. Partially visualized is nodular contour of the liver compatible with cirrhosis. ACT 112: Negative or not required by law. Electronically signed by: Mihai Motley M.D. 04/09/2022 2:01 PM
[2022-04-12] MEDS: DOCUSATE SODIUM 100 MG CAP PO SCH ×2 (08:49→20:58)
[2022-04-12] MEDS: LANTUS PER UNIT CHARGE SQ SCH (08:51)
[2022-04-12] MEDS: MAGNESIUM CHLORIDE W/CALCIUM 64MG DELAYED REL TAB PO SCH ×2 (08:51→21:01)
[2022-04-12] MEDS: INSULIN ASPART PER UNIT SC SCH ×4 (08:51→20:58)
[2022-04-12] MEDS: CHOLECALCIFEROL 1,000 UNITS 25 MCG TAB PO SCH (08:52)
[2022-04-12] MEDS: POTASSIUM CHLORIDE CRTAB 20 MEQ TABCR PO SCH ×3 (08:52→21:01)
[2022-04-12] MEDS: metOLazone 5 MG TABLET PO SCH (08:53)
--- NOTE | 2022-04-12 13:05 | Newborn Progress Note ---
Date of Service April 12, 2022 Subjective Assessment & Plan (1) Volume overload: Plan: 61-year-old female admitted to the hospital after she fell from her bed and was found to have left sided rib fracture as well as bilateral significant pulmonary embolism.Nephrology consulted for acute renal failure in a patient with liver cirrhosis with newly diagnosed bilateral pulmonary emboli. Baseline creatinine 1.1. Multiple therapeutic paracteneses this admission, last one 03/31 for 5L. Had BLAIRE earlier this admission, now resolved; bp improved as well. Still significantly overloaded >would continue IV diuresis > daily 1.5-2.5L fluid off Will Change to oral Diuretics--torsemide 100 bid. She has needed super massive iv bumex dose while here so this may not be enough.Will have to see whether Diuresis gets low on oral agent. metolazone 5 daily. -cont K 60 mEq bid -daily bmp -needs daily STANDING weights; needs STRICT I/O -external grewal ok -tap per GI >recommend remove another 5-7 L then change to po diuretics (2) Hepatic cirrhosis: Plan: US paracentesis w cell ct and fluid analysis without evidence of SBP -As per Gastro recs Subjective Patient seen and examined at bedside. She is comfortably sitting up on the chair. She denies any shortness of breath. L.\ot less edema than last time i saw her about 10 days ago Review of Systems Review of Systems: no c/o abdominal pain or discomfort Bilateral pedal edema 2+ Physical Exam Physical Exam: Middle-aged white female who is obese. She is awake, alert, and oriented and was able to give me a detailed account of her medical history and problem. HEENT: Mucous membrane is moist. NECK: Supple and obese neck. Could not appreciate JVD. CHEST: Bilateral decreased breath sound. Poor inspiratory effort limiting the quality of exam. CARDIOVASCULAR: S1 and S2 regular. ABDOMEN: Soft, distended with significant ascites. EXTREMITIES: Bilaterally 2+ edema, pitting type and very densely edematous. NEUROLOGIC: Normal speech. Awake, alert, oriented x3. She does not seem confused at this time and was able to give a detailed account of her medical history. Normal speech. Height & Weight Length (height) cm: 5 ft 7 in Current Weight: 93.4 kg Urine & Stool Stool Size: Copious Results (NB) Laboratory Results (24 Hours) Laboratory Results - last 24 hr 09/17/22 09/17/22 09/18/22 16:24 20:05 05:17 WBC 4.20 L RBC 3.49 L Hgb 10.4 L Hct 31.2 L MCV 89.4 MCH 29.8 MCHC 33.3 RDW Std Deviation 50.2 H RDW Coeff of Samy 15.2 H Plt Count 157 MPV 9.4 Immature Gran % (Auto) 0.2 Neut % (Auto) 57.2 Lymph % (Auto) 27.1 Blair % (Auto) 10.5 Eos % (Auto) 2.9 Baso % (Auto) 2.1 Neut # (Auto) 2.40 Lymph # (Auto) 1.14 L Blair # (Auto) 0.44 Eos # (Auto) 0.12 Baso # (Auto) 0.09 Immature Gran # (Auto) 0.01 Sodium Potassium Chloride Carbon Dioxide Anion Gap BUN Creatinine Est Cr Clr Drug Dosing Est GFR ( Amer) Est GFR (Non-Af Amer) BUN/Creatinine Ratio Glucose POC Glucose 129 H 96 Calcium Total Bilirubin AST ALT Alkaline Phosphatase Total Protein Albumin Globulin Albumin/Globulin Ratio 04/12/22 04/12/22 04/12/22 05:17 07:16 11:03 WBC RBC Hgb Hct MCV MCH MCHC RDW Std Deviation RDW Coeff of Samy Plt Count MPV Immature Gran % (Auto) Neut % (Auto) Lymph % (Auto) Blair % (Auto) Eos % (Auto) Baso % (Auto) Neut # (Auto) Lymph # (Auto) Blair # (Auto) Eos # (Auto) Baso # (Auto) Immature Gran # (Auto) Sodium 139 Potassium 3.6 Chloride 96 L Carbon Dioxide 36 H Anion Gap 7 BUN 24 H Creatinine 1.02 Est Cr Clr Drug Dosing 69.7 Est GFR ( Amer) 69.7 Est GFR (Non-Af Amer) 60.2 BUN/Creatinine Ratio 23.5 H Glucose 85 POC Glucose 102 H 149 H Calcium 9.0 Total Bilirubin 0.8 AST 23 ALT 11 Alkaline Phosphatase 97 Total Protein 6.2 Albumin 3.1 L Globulin 3.1 Albumin/Globulin Ratio 1.0
[2022-04-13] MEDS ORDERED: MELATONIN 3 MG TAB PO PRN (00:04)
[2022-04-13] MEDS: traMADol HCL 50 MG TABLET PO PRN (02:08)
[2022-04-13] MEDS: HEPARIN SOD 5,000 UNIT/0.5 ML VIAL SQ SCH (05:51)
[2022-04-13] MEDS ORDERED: ALBUMIN 25% 100 mL 25 GM/100 ML VIAL IV ONE (06:00)
[2022-04-13 06:50] LABS: Basophils # (auto) 0.07 K/uL (0-0.2); Basophils % (auto) 1.9 %; Eosinophils # (auto) 0.12 K/uL (0-0.50); Eosinophils % (auto) 3.3 %; Hematocrit (blood only) 28.9 % (34.1-44.9); Hemoglobin 9.6 g/dl (12.0-16.0); Immature Granulocytes # (auto) 0.01 K/uL (0.00-0.02); Immature Granulocytes % (auto) 0.3 %; Lymphocytes # (auto) 1.03 K/uL (1.2-3.4); Mean Corpuscular Hemoglobin 29.8 pg (25.0-34.0); Mean Corpuscular Hgb Conc 33.2 g/dL (32.0-36.0); Mean Corpuscular Volume 89.8 fL (80.0-100.0); Monocytes # (auto) 0.32 K/uL (0.24-0.82); Monocytes % (auto) 8.7 %; Neutrophils # (auto) 2.13 K/uL (1.4-6.5); Neutrophils % (auto) 57.8 %; Platelet Count 131 K/uL (130-400); RDW Coefficient of Variation 15.2 % (11.5-14.5); RDW Standard Deviation 49.8 fL (36.4-46.3); Red Blood Count 3.22 M/uL (3.93-5.22); White Blood Count 3.68 K/ul (4.8-10.8)
[2022-04-13 07:14] LABS: BUN Creatinine Ratio 23.1 (10-20); Bilirubin,Total 0.7 mg/dl (0.2-1.0); Calcium 8.9 mg/dl (8.5-10.1); Creatinine Clr Calc Pharmacy 64.6 ml/min; Est GFR (African American) 65.1 ml/min; Est GFR (Non-African American) 56.1 ml/min; Globulin 3.1 gm/dl (2.5-4.0); Total Protein 6.1 gm/dl (6.0-8.3)
[2022-04-13] MEDS: POTASSIUM CHLORIDE CRTAB 20 MEQ TABCR PO SCH ×2 (08:43→20:05)
[2022-04-13] MEDS: MAGNESIUM CHLORIDE W/CALCIUM 64MG DELAYED REL TAB PO SCH ×2 (08:43→20:06)
[2022-04-13] MEDS: CHOLECALCIFEROL 1,000 UNITS 25 MCG TAB PO SCH (08:43)
[2022-04-13] MEDS: DOCUSATE SODIUM 100 MG CAP PO SCH ×2 (08:44→20:04)
[2022-04-13] MEDS: INSULIN ASPART PER UNIT SC SCH ×4 (08:49→21:38)
[2022-04-13] MEDS: LANTUS PER UNIT CHARGE SQ SCH (08:49)
--- NOTE | 2022-04-13 11:02 | Nephrology Progress Note ---
Date of Service April 13, 2022 Assessment & Plan Admission and Anticipated Discharge Date Admission Date: March 17, 2022 Subjective Subjective Assessment & Plan (1) Volume overload: Plan: 61-year-old female admitted to the hospital after she fell from her bed and was found to have left sided rib fracture as well as bilateral significant pulmonary embolism.Nephrology consulted for acute renal failure in a patient with liver cirrhosis with newly diagnosed bilateral pulmonary emboli. Baseline creatinine 1.1. Multiple therapeutic paracentesis this admission, last one 03/31 for 5L. Had BLAIRE earlier this admission, now resolved; bp improved as well. >would continue IV diuresis > daily 1.5-2.5L fluid off Will Continue oral Diuretics--torsemide 100 bid. She has needed super massive iv bumex dose while here so this may not be enough.Will have to see whether Diuresis gets low on oral agent. Urine output did not change much metolazone 5 daily. -cont K 60 mEq bid -daily bmp -needs daily STANDING weights; needs STRICT I/O -external grewal ok -tap per GI nephrology f/u within 1 week (2) Hepatic cirrhosis: Plan: US paracentesis w cell ct and fluid analysis without evidence of SBP -As per Gastro recs Subjective Patient seen and examined at bedside. She is comfortably sitting up on the chair. She denies any shortness of breath. Lot less edema than last time i saw her about 10 days ago. last few days urine is about 1500 ml average. Lot less edema and wt down about 50 lbs. Feels much better Review of Systems Review of Systems: no c/o abdominal pain or discomfort Bilateral pedal edema 2+ Physical Exam Physical Exam: Middle-aged white female who is obese. She is awake, alert, and oriented and was able to give me a detailed account of her medical history and problem. HEENT: Mucous membrane is moist. NECK: Supple and obese neck. Could not appreciate JVD. CHEST: Bilateral decreased breath sound. Poor inspiratory effort limiting the quality of exam. CARDIOVASCULAR: S1 and S2 regular. ABDOMEN: Soft, distended with significant ascites. EXTREMITIES: Bilaterally 1+ edema, much better NEUROLOGIC: Normal speech. Awake, alert, oriented x3. She does not seem confused at this time and was able to give a detailed account of her medical history. Normal speech. Results & Data ([facility]) Vital Signs (Past 12 Hours) Vital Signs Temp Pulse Pulse Pulse Resp BP Pulse Ox 04/13/22 10:52 36.5 C 84 116/59 L 96 04/13/22 06:06 80 04/13/22 07:55 36.9 C 79 18 126/87 94 04/13/22 03:06 36.6 C 86 18 108/55 L 93 04/13/22 00:15 96 H 04/13/22 00:13 36.9 C 93 H 18 104/65 93 O2 Del Method 04/13/22 10:52 Room Air 04/13/22 06:06 04/13/22 07:55 Room Air 04/13/22 03:06 Room Air 04/13/22 00:15 04/13/22 00:13 Room Air
--- NOTE | 2022-04-13 11:49 | Hospitalist Progress Note ---
Date of Service April 13, 2022 Assessment & Plan (1) Volume overload: Plan: (1) Saddle pulmonary embolus: Plan: Acute Saddle pulmonary embolism Acute DVT of Left LE Hx of COVID infection in Jul was vaccinated in 2020 x 2 doses --CT Chest:Extensive bilateral pulmonary emboli including a saddle embolus within the main pulmonary arteries. No evidence for right-sided heart strain at this time. Acute left anterior third through fifth rib fractures. No pneumothorax. Additional subacute to chronic fractures within the chest and abdomen as described above. Cirrhotic liver with splenomegaly and a large amount of ascites. This has slightly progressed. Moderate to severe body wall edema again noted. Mildly enlarged anterior diaphragmatic and periportal lymph nodes remain unchanged. --ECHO:Aortic valve sclerosis mild, without significant aortic valvular stenosis. Left ventricle cavity is small. Moderate concentric LVH. Left ventricle wall motion is normal. Left ventricle is hyperdynamic. EF greater than 70%. Neck: Sign present with hypokinesis of the right ventricular apex with sparing of the basilar structures and mild apical dilatation consistent with acute pulmonary embolus. Trace tricuspid insufficiency is present --Venous Doppler:Acute appearing occlusive thrombus in the left lower extremity superficial femoral and popliteal veins. Soft tissue edema in the bilateral calf. No definite thrombus of the calf vessels despite limited evaluation. If any clinical deterioration, then tPA will be pursued Plan: -Stable from PE standpoint. Not on supplemental oxygen. -Eliquis resumed (2) Hepatic cirrhosis: Plan: - Nonalcoholic, hepatitis panel was conducted 01/27/2022 as reviewed in outpatient epic and is negative for hep A, B, C - Scheduled with Dr. Mace as outpatient with hepatology on 05/05/22: In end of December pt was placed on lasix 20 mg daily and spironolactone 50 mg daily, lasix was increased to 40 mg daily on 02/11. -Patient underwent paracentesis on 03/20( 3 liters), 03/26( 3 Litres) and 03/31(5 litres) and 04/13 (6 litres) Last ultrasound was on 04/09; large ascites seen. Plan: -Patient transition to oral diuretics which includes torsemide 100 mg twice daily and metolazone 5 mg once a day. We will see her response with the current dose and adjust as needed. - No indication for Pleurx catheter due to sign risk of infection. Diarrhea C. difficile negative Imodium as needed Resolved (3) BLAIRE (acute kidney injury): Plan: - Resolved - Likely contrast induced BLAIRE. - Cr peaked to 1.51 and down trended to baseline. Plan is to continue current diuretics and monitor renal function closely. (4) Diabetes: Plan: -Last A1c was 9.1 on 01/13/2022 -Holding metformin Continue Insulin -POCT glucose within range. (5) Asthma: Plan: -Continue albuterol sulfate (6) Rib fractures: Plan: Left-sided rib fractures Nondisplaced Secondary to fall Continue incentive spirometer Pain control (7) Fall: Plan: Mechanical fall Fall precautions PT/OT Abnormal UA Ruled out UTI Urine Cx Mixed ashley Empirically received Rocephin for 3 days DVT Px: Eliquis CODE STATUS: Full code Disposition Rehab when medically stable Admission and Anticipated Discharge Date Admission Date: March 17, 2022 Subjective Patient seen and examined at bedside. She underwent paracentesis by radiology today. 6 L of paracentesis fluid fluid was tapped and sent to lab. She feels that her abdomen is less distended compared to before the paracentesis. She denies any pain, fever or chills. Review of Systems Review of Systems: All systems reviewed & are unremarkable except as noted in Subjective Physical Exam Physical Exam: General- oriented x 3, not in distress, speaks in sentences with no effort or accessory muscle use Eyes- anicteric Neck- no JVD Lungs- clear BS bilaterally, no rales/wheezes Heart- normal rate, regular rhythm; no murmurs Abdomen-Less distended compared to yesterday's examination Extremities- mild pretibial edema, no calf tenderness Neuro- alert, oriented x 3; no gross focal neurologic deficits Skin- warm & dry Results & Data Results & Data ([facility]) Vital Signs (Past 12 Hours) Vital Signs Temp Pulse Pulse Pulse Resp BP Pulse Ox 04/13/22 10:52 36.5 C 84 116/59 L 96 04/13/22 06:06 80 04/13/22 07:55 36.9 C 79 18 126/87 94 04/13/22 03:06 36.6 C 86 18 108/55 L 93 04/13/22 00:15 96 H 04/13/22 00:13 36.9 C 93 H 18 104/65 93 O2 Del Method 04/13/22 10:52 Room Air 04/13/22 06:06 04/13/22 07:55 Room Air 04/13/22 03:06 Room Air 04/13/22 00:15 04/13/22 00:13 Room Air Laboratory Results Laboratory Results WBC 3.68 K/ul (4.8-10.8) L 04/13/22 05:26 RBC 3.22 M/uL (3.93-5.22) L 04/13/22 05:26 Hgb 9.6 g/dl (12.0-16.0) L 04/13/22 05:26 Hct 28.9 % (34.1-44.9) L 04/13/22 05:26 MCV 89.8 fL (80.0-100.0) 04/13/22 05:26 MCH 29.8 pg (25.0-34.0) 04/13/22 05:26 MCHC 33.2 g/dL (32.0-36.0) 04/13/22 05:26 RDW Std Deviation 49.8 fL (36.4-46.3) H 04/13/22 05:26 RDW Coeff of Samy 15.2 % (11.5-14.5) H 04/13/22 05:26 Plt Count 131 K/uL (130-400) 04/13/22 05:26 MPV 10.0 fL (9.4-12.3) 04/13/22 05:26 Immature Gran % (Auto) 0.3 % 04/13/22 05:26 Neut % (Auto) 57.8 % 04/13/22 05:26 Lymph % (Auto) 28.0 % 04/13/22 05:26 Harris % (Auto) 8.7 % 04/13/22 05:26 Eos % (Auto) 3.3 % 04/13/22 05:26 Baso % (Auto) 1.9 % 04/13/22 05:26 Neut # (Auto) 2.13 K/uL (1.4-6.5) 04/13/22 05:26 Lymph # (Auto) 1.03 K/uL (1.2-3.4) L 04/13/22 05:26 Harris # (Auto) 0.32 K/uL (0.24-0.82) 04/13/22 05:26 Eos # (Auto) 0.12 K/uL (0-0.50) 04/13/22 05:26 Baso # (Auto) 0.07 K/uL (0-0.2) 04/13/22 05:26 Immature Gran # (Auto) 0.01 K/uL (0.00-0.02) 04/13/22 05:26 Hypersegmented Neuts Occasional 03/19/22 05:35 PT 15.0 Seconds (9.0-12.0) H 04/09/22 06:00 INR 1.4 (0.9-1.1) H 04/09/22 06:00 APTT 49.0 Seconds (21.0-31.0) H* 03/30/22 23:52 PTT Ratio 1.8 03/30/22 23:52 ABG pH 7.44 (7.35-7.45) 03/18/22 23:23 ABG pCO2 45 mmHg (35-46) 03/18/22 23:23 ABG pO2 102 mmHg (80-95) H 03/18/22 23:23 ABG HCO3 31 mmol/L (19-24) H 03/18/22 23:23 ABG O2 Saturation 99.0 % (90-95) H 03/18/22 23:23 ABG Base Excess 5.6 mEq/L (-9-1.8) H 03/18/22 23:23 Khari Test Pos (Pos) 03/18/22 23:23 Oxygen Given 2L 03/18/22 23:23 Sodium 138 mmol/L (136-145) 04/13/22 05:26 Potassium 4.0 mmol/L (3.5-5.1) 04/13/22 05:26 Chloride 97 mmol/L (98-107) L 04/13/22 05:26 Carbon Dioxide 36 mmol/L (21-32) H 04/13/22 05:26 Anion Gap 5 (3-11) 04/13/22 05:26 BUN 25 mg/dl (6-23) H 04/13/22 05:26 Creatinine 1.08 mg/dl (0.6-1.2) 04/13/22 05:26 Est Cr Clr Drug Dosing 64.6 ml/min 04/13/22 05:26 Est GFR ( Amer) 65.1 ml/min 04/13/22 05:26 Est GFR (Non-Af Amer) 56.1 ml/min 04/13/22 05:26 BUN/Creatinine Ratio 23.1 (10-20) H 04/13/22 05:26 Glucose 89 mg/dl (70-99(Fasting)) 04/13/22 05:26 POC Glucose 113 mg/dl (70-99) H 04/13/22 11:13 Calcium 8.9 mg/dl (8.5-10.1) 04/13/22 05:26 Phosphorus 3.7 mg/dl (2.5-4.9) 03/30/22 05:49 Magnesium 1.9 mg/dl (1.7-2.4) 03/30/22 05:49 Total Bilirubin 0.7 mg/dl (0.2-1.0) 04/13/22 05:26 Direct Bilirubin 0.2 mg/dl (0-0.2) 03/20/22 06:30 AST 22 U/L (13-39) 04/13/22 05:26 ALT 11 U/L (7-52) 04/13/22 05:26 Alkaline Phosphatase 92 U/L (34-104) 04/13/22 05:26 Troponin I High Sens 35.1 pg/ml (0-14) H 03/25/22 15:57 Total Protein 6.1 gm/dl (6.0-8.3) 04/13/22 05:26 Albumin 3.0 gm/dl (3.4-5.0) L 04/13/22 05:26 Globulin 3.1 gm/dl (2.5-4.0) 04/13/22 05:26 Albumin/Globulin Ratio 1.0 (0.9-2) 04/13/22 05:26 25-OH Vitamin D Total 13.8 ng/ml (30-100) L 03/17/22 11:30 Urine Color Dark Yellow 03/17/22 07:50 Urine Appearance Clear (Clear) 03/17/22 07:50 Urine pH 5.0 (4.5-7.5) 03/17/22 07:50 Ur Specific [place] 1.018 (1.000-1.030) 03/17/22 07:50 Urine Protein 1+ (Negative) H 03/17/22 07:50 Urine Glucose (UA) Negative (Negative) 03/17/22 07:50 Urine Ketones Trace (Negative) H 03/17/22 07:50 Urine Blood Negative (Negative) 03/17/22 07:50 Urine Nitrite Negative (Negative) 03/17/22 07:50 Urine Bilirubin 1+ (Negative) H 03/17/22 07:50 Urine Urobilinogen Negative (Negative) 03/17/22 07:50 Ur Leukocyte Esterase 2+ (Negative) H 03/17/22 07:50 Urine WBC (Auto) 5-10 /hpf (0-5) H 03/17/22 07:50 Urine RBC (Auto) 5-10 /hpf (0-4) H 03/17/22 07:50 U Hyaline Cast (Auto) 5-10 /lpf (0-5) H 03/17/22 07:50 U Epithel Cells (Auto) >30 /lpf (0-5) H 03/17/22 07:50 Urine Bacteria (Auto) 1+ (Negative) H 03/17/22 07:50 Ur Random Creatinine 105.8 mg/dl 03/17/22 17:50 Ur Random Sodium 76 mmol/L 03/17/22 17:50 Urine Sodium 53 mmol/L 04/08/22 13:00 Urine Potassium 71.1 mmol/L 04/08/22 13:00 Urine Chloride 104 mmol/L 04/08/22 13:00 Fluid Neutrophils % 8 % 03/20/22 14:20 Fluid Lymphocytes % 21 % 03/20/22 14:20 Fluid Eosinophils % 1 % 03/20/22 14:20 Fluid Meso/Macro/Harris % 70 % 03/20/22 14:20 Fluid Comment 03/20/22 14:20 Peritoneal Color Yellow 03/20/22 14:20 Peritoneal Appearance Clear 03/20/22 14:20 Peritoneal WBC 125 /ul (0-300) 03/20/22 14:20 Peritoneal RBC < 2000 /uL 03/20/22 14:20 Peritoneal Tot Protein < 3.0 gm/dl 04/13/22 Unknown Peritoneal Albumin 1.7 gm/dl 04/13/22 Unknown Stl C. diff Tox B Gene Negative Cdiff Gene (Neg) 04/04/22 16:18 SARS-CoV-2, RNA, NAAT NEGATIVE (NEGATIVE) 03/17/22 11:50 Impressions Abdomen/Pelvis CT 03/17/22 07:[address] WITH CONTRAST, ABDOMEN AND PELVIS CT WITH INTRAVENOUS CONTRAST CT DOSE: 3804.89 mGy.cm HISTORY: fall, left chest pain. Left flank pain. TECHNIQUE: Multiaxial CT images of the chest, abdomen, and pelvis were performed following the intravenous administration of contrast. A dose lowering technique was utilized adhering to the principles of ALARA. COMPARISON: Chest CTA and abdomen pelvis CT 01/21/2022. FINDINGS: Chest CT: There is an old moderate superior endplate compression deformity at T3. There is a subacute mild superior endplate compression fracture at T4. No associated retropulsion. Healing right anterior rib fractures are again noted. There are acute left anterior third through fifth rib fractures. There are few additional healing left anterior rib fractures also noted. Mild elevation the right hemidiaphragm. The central airways are patent. No pneumothorax. No pleural effusions. Bibasilar linear densities consistent with subsegmental atelectasis. Otherwise, no new focal lung consolidations to suggest pneumonia. No evidence for pulmonary edema. There is a 1 cm left thyroid nodule. This does not meet CT criteria for follow-up. Mild body wall edema with left breast skin thickening. No change in the anterior diaphragmatic lymphadenopathy. Subcentimeter distal paraesophageal lymph nodes are again noted. There is no hilar lymphadenopathy. Normal esophagus. The heart is normal in size. No evidence for right-sided heart strain. There is extensive bilateral pulmonary emboli with associated subtle embolus at the main pulmonary arteries. Abdomen/pelvis CT: There is a chronic moderate to severe superior endplate compression deformity at L4, unchanged. No pneumoperitoneum. No pneumatosis. Moderate to severe body wall edema is again noted. There is pelvic floor collapse. The bladder is decompressed. The uterus and bilateral adnexa are unremarkable. No bowel wall thickening or obstruction. There is a large amount of ascites which has slightly progressed. Cirrhotic liver and splenomegaly is again noted. The adrenal glands, pancreas, and kidneys unremarkable. No hydronephrosis. The main portal vein is patent. Mild periportal lymphadenopathy remains unchanged. Normal caliber abdominal aorta. Cholecystectomy. Stable partially calcified pelvic/inguinal lymph nodes. IMPRESSION: 1. Extensive bilateral pulmonary emboli including a saddle embolus within the main pulmonary arteries. No evidence for right-sided heart strain at this time. 2. Acute left anterior third through fifth rib fractures. No pneumothorax. 3. Additional subacute to chronic fractures within the chest and abdomen as described above. 4. Cirrhotic liver with splenomegaly and a large amount of ascites. This has slightly progressed. 5. Moderate to severe body wall edema again noted. 6. Mildly enlarged anterior diaphragmatic and periportal lymph nodes remain unchanged. ACT 112: Negative or not required by law. Electronically signed by: Abe Florentino M.D. 03/17/2022 9:[address] 03/17/22 07:05 CT SCAN OF THE CERVICAL SPINE CLINICAL HISTORY: Trauma. Fall. COMPARISON STUDY: No priors. TECHNIQUE: CT scan of the cervical spine is performed from the skull base to the upper thoracic spine. Images are reviewed in the axial, sagittal, and coronal planes. IV contrast was not administered for this examination. A dose lowering technique was utilized adhering to the principles of ALARA. FINDINGS: Skeletal structures: The skeletal structures are osteopenic. There is no evidence of fracture or subluxation involving the cervical spine. Vertebral body height and alignment are maintained. There is straightening of the cervical lordosis. The odontoid process and lateral masses are intact. The atlantoaxial articulation is preserved noting minimal productive degenerative change. The spinous processes appear intact. Intervertebral discs: There is moderate disc space narrowing at C5-C6. Mild narrowing is seen at the remaining cervical levels. Central canal: Posterior disc osteophyte complexes at C4-C5 and C5-C6 may contribute to mild acquired compromise of the central canal. Soft tissues: The prevertebral and paraspinous soft tissues are within normal limits. There is atherosclerotic calcification of the carotid bulbs. Calvarium: The visualized calvarium at the skull base appears intact. Brain parenchyma: Partially visualized brain parenchyma at the skull base is within normal limits. Sinuses and mastoids: Trace fluid is noted in the sphenoid sinuses. The mastoid air cells are well pneumatized. Lung apices: Clear as visualized. IMPRESSION: 1. There is no evidence of fracture or subluxation involving the cervical spine. 2. Osteopenia and mild spondylotic change as above. ACT 112: Negative or not required by law. Electronically signed by: Felipe Aguirre M.D. 03/17/2022 8:[address] 03/17/22 07:[address] WITH CONTRAST, ABDOMEN AND PELVIS CT WITH INTRAVENOUS CONTRAST CT DOSE: 3804.89 mGy.cm HISTORY: fall, left chest pain. Left flank pain. TECHNIQUE: Multiaxial CT images of the chest, abdomen, and pelvis were performed following the intravenous administration of contrast. A dose lowering technique was utilized adhering to the principles of ALARA. COMPARISON: Chest CTA and abdomen pelvis CT 01/21/2022. FINDINGS: Chest CT: There is an old moderate superior endplate compression deformity at T3. There is a subacute mild superior endplate compression fracture at T4. No associated retropulsion. Healing right anterior rib fractures are again noted. There are acute left anterior third through fifth rib fractures. There are few additional healing left anterior rib fractures also noted. Mild elevation the right hemidiaphragm. The central airways are patent. No pneumothorax. No pleural effusions. Bibasilar linear densities consistent with subsegmental atelectasis. Otherwise, no new focal lung consolidations to suggest pneumonia. No evidence for pulmonary edema. There is a 1 cm left thyroid nodule. This does not meet CT criteria for follow-up. Mild body wall edema with left breast skin thickening. No change in the anterior diaphragmatic lymphadenopathy. Subcentimeter distal paraesophageal lymph nodes are again noted. There is no hilar lymphadenopathy. Normal esophagus. The heart is normal in size. No evidence for right-sided heart strain. There is extensive bilateral pulmonary emboli with associated subtle embolus at the main pulmonary arteries. Abdomen/pelvis CT: There is a chronic moderate to severe superior endplate compression deformity at L4, unchanged. No pneumoperitoneum. No pneumatosis. Moderate to severe body wall edema is again noted. There is pelvic floor collapse. The bladder is decompressed. The uterus and bilateral adnexa are unremarkable. No bowel wall thickening or obstruction. There is a large amount of ascites which has slightly progressed. Cirrhotic liver and splenomegaly is again noted. The adrenal glands, pancreas, and kidneys unremarkable. No hydronephrosis. The main portal vein is patent. Mild periportal lymphadenopathy remains unchanged. Normal caliber abdominal aorta. Cholecystectomy. Stable partially calcified pelvic/inguinal lymph nodes. IMPRESSION: 1. Extensive bilateral pulmonary emboli including a saddle embolus within the main pulmonary arteries. No evidence for right-sided heart strain at this time. 2. Acute left anterior third through fifth rib fractures. No pneumothorax. 3. Additional subacute to chronic fractures within the chest and abdomen as described above. 4. Cirrhotic liver with splenomegaly and a large amount of ascites. This has slightly progressed. 5. Moderate to severe body wall edema again noted. 6. Mildly enlarged anterior diaphragmatic and periportal lymph nodes remain unchanged. ACT 112: Negative or not required by law. Electronically signed by: Abe Florentino M.D. 03/17/2022 9:[address] 03/17/22 07:05 CT SCAN OF THE BRAIN WITHOUT IV CONTRAST CLINICAL HISTORY: Fall. COMPARISON STUDY: No priors. TECHNIQUE: Unenhanced axial CT scan of the brain is performed from the vertex to the skull base. A dose lowering technique was utilized adhering to the principles of ALARA. FINDINGS: Brain parenchyma: There is age-related involutional change noting minimal subcortical and periventricular microangiopathic disease. There is no hemorrhage, mass effect, or evidence of acute territorial ischemia by CT criteria. Mccracken-white matter differentiation is preserved. No extra-axial fluid collection is seen. Chronic lacunar infarcts are noted within both basal ganglia as well as the right thalamus. Ventricles, sulci, cisterns: Prominent secondary to involutional change. Intracranial vasculature: There is atherosclerotic calcification of the cavernous carotid and vertebral arteries. Calvarium: The skeletal structures are osteopenic. No depressed calvarial fracture is identified. Sinuses and mastoids: There is trace fluid within the sphenoid sinuses. The remaining visualized paranasal sinuses are clear. The mastoid air cells are well pneumatized. Orbits: The bony orbits are grossly intact. IMPRESSION: There is no hemorrhage, mass effect, or evidence of acute territori al ischemia by CT criteria. ACT 112: Negative or not required by law. Electronically signed by: Felipe Aguirre M.D. 03/17/2022 8:19 AM Knee X-Ray 03/17/22 07:05 LEFT KNEE 3 VIEWS CLINICAL HISTORY: Fall with left knee pain and swelling. FINDINGS: AP, crosstable lateral, and sunrise views of the left knee are obtained. No prior studies are available for comparison at the time of dictation. The skeletal structures are osteopenic. No fracture is seen. The joint spaces of the knee are maintained. A small joint effusion is noted. Soft tissue edema is present throughout the visualized left lower extremity. IMPRESSION: 1. Soft tissue edema with no acute bony abnormality identified. 2. Small joint effusion. Electronically signed by: Felipe Aguirre M.D. 03/17/2022 8:36 AM Venous Doppler Study 03/17/22 10:11 US venous doppler LE BI CLINICAL HISTORY: pe TECHNIQUE: Bilateral lower extremity real-time compression venous ultrasound with Color Doppler imaging. Utilizing real-time ultrasonic imaging multiple real time high-resolution ultrasonic images with compression and noncompression maneuvers of the deep venous system in addition to color doppler imaging were performed from the common femoral vein through the proximal calf veins. COMPARISON: Comparison is made to Doppler ultrasound 01/06/2022 FINDINGS: There is a deep venous thrombus in the left superficial femoral vein in one of the 2 vessels, which also extends into the popliteal vein. Limited evaluation of the calf vessels bilaterally due to overlying edema and tenderness. Impression: 1. Acute appearing occlusive thrombus in the left lower extremity superficial femoral and popliteal veins. 2. Soft tissue edema in the bilateral calf. No definite thrombus of the calf vessels despite limited evaluation. ACT 112: Negative or not required by law. Electronically signed by: Mihai Motley M.D. 03/17/2022 11:46 AM Chest X-Ray 03/25/22 10:16 XR chest 1V portable CLINICAL HISTORY: chest pain TECHNIQUE: Single frontal radiograph of the chest was obtained. Comparison: Comparison is made to chest radiograph 03/18/[address] chest 03/17/2022 FINDINGS: No lines and tubes are seen. The cardiomediastinal silhouette is normal. Lungs are underinflated but clear. No evidence of pleural effusion or pneumothorax. Noted rib fractures are not well seen radiographically. IMPRESSION: Lungs are underinflated however no acute abnormalities are seen. ACT 112: Negative or not required by law. Electronically signed by: Mihai Motley M.D. 03/25/2022 10:37 AM KUB X-Ray 04/06/22 09:39 KUB HISTORY: lower abdominal pain COMPARISON: KUB 03/26/2022. FINDINGS: Prior cholecystectomy. Centralization of the bowel loops likely represents ascites. Borderline dilated gas-filled loops of large small bowel are seen throughout the abdomen. This could represent a mild ileus. Overall, this has improved compared the prior study. Overall, suboptimal evaluation due to the patient's body habitus. No renal calculi. No ureteral calculi. No pneumoperitoneum or pneumatosis. IMPRESSION: 1. Centralization of the bowel loops representing underlying ascites. 2. A few borderline dilated gas-filled loops of large and small bowel seen throughout the abdomen. This is improved compared the prior study and favors a mild ileus. A low-grade partial small bowel obstruction is considered less likely but not entirely excluded. ACT 112: Negative or not required by law. Electronically signed by: Abe Florentino M.D. 04/06/2022 1:00 PM Abdomen Ultrasound 04/09/22 10:54 US abdomen ltd ascites CLINICAL HISTORY: Follow up on amount of ascites TECHNIQUE: Real-time grayscale sonographic images of the abdomen were obtained. Comparison: Comparison is made to paracentesis 03/31/2022 FINDINGS/IMPRESSION: Large ascites is seen. Partially visualized is nodular contour of the liver compatible with cirrhosis. ACT 112: Negative or not required by law. Electronically signed by: Mihai Motley M.D. 04/09/2022 2:01 PM
--- NOTE | 2022-04-13 11:54 | Ultrasound Report ---
US paracentesis abd w/image CLINICAL HISTORY: 61 years-old Female with Large volume paracentesis. COMPARISON: 04/09/2022 PROCEDURE: The procedure was explained to the patient in the care including the benefits and possible risks/complications. The patient gave verbal understanding and written consent was obtained. A time -out was performed prior to the start of the procedure. The patient was placed on the ultrasound table in the supine position. Using ultrasound guidance, an appropriate procedure site in the left mid abdomen was marked. This area was then prepped and draped in the usual sterile fashion. Local anesthesia was achieved within 1% lidocaine. An 8-[place] centesis catheter was then inserted. Approximately 6.0 liters of clear, yellowish fluid was removed and 1 L w as sent to the lab for analysis. The catheter was removed and external pressure was held to achieve hemostasis. A sterile dressing was applied to the procedure site. The patient tolerated the procedure well without immediate complicati ons. IMPRESSION: Successful ultrasound-guided paracentesis with removal of 6 L ascitic fluid. ACT 112: Negative or not required by law. The above report was generated using voice recognition software. It may contain grammatical, syntax o r spelling errors. Electronically signed by: Alfred Adames M.D. 04/13/2022 11:52 AM
[2022-04-13 14:33] LABS: Appearance Peritoneal Fluid Clear; Color Peritoneal Fluid Yellow
[2022-04-13 14:34] LABS: Eosinophils, Fluid 2 %; Lymphocytes, Fluid 51 %; Mono,Macrophage,Mesothelial 45 %; Neutrophils, Fluid 2 %; RBC Peritoneal Fluid (A) < 2000 /uL; WBC Peritoneal Fluid (A) 145 /ul (0-300)
[2022-04-13] MEDS: APIXABAN 5 MG TABLET PO SCH (14:37)
[2022-04-13] MEDS: TORSEMIDE 100 MG TAB PO SCH (20:07)
[2022-04-14] MEDS: APIXABAN 5 MG TABLET PO SCH ×2 (00:53→12:10)
[2022-04-14] MEDS: NYSTATIN POWDER 15GM BTL EXT PRN ×2 (05:46→20:43)
[2022-04-14 06:44] LABS: Basophils # (auto) 0.07 K/uL (0-0.2); Eosinophils # (auto) 0.11 K/uL (0-0.50); Eosinophils % (auto) 3.1 %; Hematocrit (blood only) 31.1 % (34.1-44.9); Hemoglobin 10.3 g/dl (12.0-16.0); Immature Granulocytes # (auto) 0.02 K/uL (0.00-0.02); Immature Granulocytes % (auto) 0.6 %; Lymphocytes # (auto) 0.88 K/uL (1.2-3.4); Lymphocytes % (auto) 24.9 %; Mean Platelet Volume 9.7 fL (9.4-12.3); Monocytes # (auto) 0.32 K/uL (0.24-0.82); Neutrophils # (auto) 2.14 K/uL (1.4-6.5); Neutrophils % (auto) 60.4 %; Platelet Count 129 K/uL (130-400); White Blood Count 3.54 K/ul (4.8-10.8)
[2022-04-14 07:07] LABS: Albumin Level 3.3 gm/dl (3.4-5.0); BUN Creatinine Ratio 23.6 (10-20); Bilirubin,Total 0.7 mg/dl (0.2-1.0); Calcium 9.4 mg/dl (8.5-10.1); Creatinine Clr Calc Pharmacy 63.7 ml/min; Est GFR (African American) 66.6 ml/min; Est GFR (Non-African American) 57.4 ml/min; Globulin 3.2 gm/dl (2.5-4.0); Mean Corpuscular Hgb Conc 33.1 g/dL (32.0-36.0); Mean Corpuscular Volume 90.7 fL (80.0-100.0); Potassium 3.6 mmol/L (3.5-5.1); RDW Coefficient of Variation 14.9 % (11.5-14.5); RDW Standard Deviation 49.7 fL (36.4-46.3); Red Blood Count 3.43 M/uL (3.93-5.22); Total Protein 6.5 gm/dl (6.0-8.3)
[2022-04-14] MEDS: DOCUSATE SODIUM 100 MG CAP PO SCH ×2 (07:45→20:45)
[2022-04-14] MEDS: metOLazone 5 MG TABLET PO SCH (07:46)
[2022-04-14] MEDS: CHOLECALCIFEROL 1,000 UNITS 25 MCG TAB PO SCH (07:46)
[2022-04-14] MEDS: TORSEMIDE 100 MG TAB PO SCH ×2 (07:46→20:45)
[2022-04-14] MEDS: POTASSIUM CHLORIDE CRTAB 20 MEQ TABCR PO SCH ×2 (07:47→20:44)
[2022-04-14] MEDS: MAGNESIUM CHLORIDE W/CALCIUM 64MG DELAYED REL TAB PO SCH ×2 (07:47→20:45)
[2022-04-14] MEDS: LANTUS PER UNIT CHARGE SQ SCH (08:54)
[2022-04-14] MEDS: INSULIN ASPART PER UNIT SC SCH ×4 (08:55→20:39)
--- NOTE | 2022-04-14 09:55 | Nephrology Progress Note ---
Date of Service April 14, 2022 Assessment & Plan Admission and Anticipated Discharge Date Admission Date: March 17, 2022 Subjective Assessment & Plan (1) Volume overload: Plan: 61-year-old female admitted to the hospital after she fell from her bed and was found to have left sided rib fracture as well as bilateral significant pulmonary embolism.Nephrology consulted for acute renal failure in a patient with liver cirrhosis with newly diagnosed bilateral pulmonary emboli. Baseline creatinine 1.1. Multiple therapeutic paracentesis this admission, last one 03/31 for 5L. Had BLAIRE earlier this admission, now resolved; bp improved as well. urine 3300 ml yesterday on 100 bid of torsemide+ metolazone 5 daily. for discharge do torsemide 100 daily and 100 bid three times per week. metolazone 5 daily. Stable for Discharge . possible to [facility]. make sure for daily weight and edema checkup. -cont K 60 mEq bid -daily bmp -needs daily STANDING weights; needs STRICT I/O -tap per GI nephrology f/u within 1 week (2) Hepatic cirrhosis: Plan: US paracentesis w cell ct and fluid analysis without evidence of SBP -As per Gastro recs Subjective Patient seen and examined at bedside. She is comfortably sitting up on the chair. She denies any shortness of breath. Lot less edema than last time i saw her about 10 days ago. last few days urine is about 1500 ml average. Lot less edema and wt down about 50 lbs. Feels much better Review of Systems Review of Systems: no c/o abdominal pain or discomfort Bilateral pedal edema 2+ Physical Exam Physical Exam: Middle-aged white female who is obese. She is awake, alert, and oriented and was able to give me a detailed account of her medical history and problem. HEENT: Mucous membrane is moist. NECK: Supple and obese neck. Could not appreciate JVD. CHEST: Bilateral decreased breath sound. Poor inspiratory effort limiting the quality of exam. CARDIOVASCULAR: S1 and S2 regular. ABDOMEN: Soft, distended with significant ascites. EXTREMITIES: Bilaterally 1+ edema, much better NEUROLOGIC: Normal speech. Awake, alert, oriented x3. She does not seem confused at this time and was able to give a detailed account of her medical history. Normal speech. Results & Data ([facility]) Vital Signs (Past 12 Hours) Vital Signs Temp Pulse Resp BP BP Pulse Ox O2 Del Method 04/14/22 07:22 36.8 C 86 18 111/67 94 Room Air 04/14/22 03:08 36.7 C 85 16 105/65 93 Room Air 04/13/22 22:31 36.9 C 86 16 113/68 94 Room Air
[2022-04-14] MEDS ORDERED: TORSEMIDE 100 MG TAB PO SCH (10:30)
--- NOTE | 2022-04-14 12:21 | Hospitalist Progress Note ---
Date of Service April 14, 2022 Assessment & Plan (1) Volume overload: Plan: (1) Saddle pulmonary embolus: Plan: Acute Saddle pulmonary embolism Acute DVT of Left LE Hx of COVID infection in Jul was vaccinated in 2020 x 2 doses --CT Chest:Extensive bilateral pulmonary emboli including a saddle embolus within the main pulmonary arteries. No evidence for right-sided heart strain at this time. Acute left anterior third through fifth rib fractures. No pneumothorax. Additional subacute to chronic fractures within the chest and abdomen as described above. Cirrhotic liver with splenomegaly and a large amount of ascites. This has slightly progressed. Moderate to severe body wall edema again noted. Mildly enlarged anterior diaphragmatic and periportal lymph nodes remain unchanged. --ECHO:Aortic valve sclerosis mild, without significant aortic valvular stenosis. Left ventricle cavity is small. Moderate concentric LVH. Left ventricle wall motion is normal. Left ventricle is hyperdynamic. EF greater than 70%. Neck: Sign present with hypokinesis of the right ventricular apex with sparing of the basilar structures and mild apical dilatation consistent with acute pulmonary embolus. Trace tricuspid insufficiency is present --Venous Doppler:Acute appearing occlusive thrombus in the left lower extremity superficial femoral and popliteal veins. Soft tissue edema in the bilateral calf. No definite thrombus of the calf vessels despite limited evaluation. If any clinical deterioration, then tPA will be pursued Plan: -Stable from PE standpoint. Not on supplemental oxygen. -Eliquis resumed (2) Hepatic cirrhosis: Plan: - Nonalcoholic, hepatitis panel was conducted 01/27/2022 as reviewed in outpatient epic and is negative for hep A, B, C - Scheduled with Dr. Mace as outpatient with hepatology on 05/05/22: In end of December pt was placed on lasix 20 mg daily and spironolactone 50 mg daily, lasix was increased to 40 mg daily on 02/11. -Patient underwent paracentesis on 03/20( 3 liters), 03/26( 3 Litres) and 03/31(5 litres) and 04/13 (6 litres) Studies from 04/13 paracentesis; Cytology was negative for malignancy No signs of infection with WBC of 145 and 51% lymphocytes. SAAG greater than 1 signifying portal hypertension. Plan: -Plan to discharge the patient on torsemide once daily and twice daily ( 3 times in a week) and metolazone 5 mg daily. Patient will need daily standing weights and a strict EDDIE's. If patient has significant volume overload leading to shortness of breath and significant weight gain; she will need therapeutic paracentesis . She will need to follow-up with community organization worker as outpatient. Awaiting placement; insurance authorization pending for [facility]. Diarrhea C. difficile negative Imodium as needed Resolved (3) BLAIRE (acute kidney injury): Plan: - Resolved - Likely contrast induced BLAIRE. - Cr peaked to 1.51 and down trended to baseline. Plan is to continue current diuretics and monitor renal function closely. (4) Diabetes: Plan: -Last A1c was 9.1 on 01/13/2022 -Holding metformin Continue Insulin -POCT glucose within range. (5) Asthma: Plan: -Continue albuterol sulfate (6) Rib fractures: Plan: Left-sided rib fractures Nondisplaced Secondary to fall Continue incentive spirometer Pain control (7) Fall: Plan: Mechanical fall Fall precautions PT/OT Abnormal UA Ruled out UTI Urine Cx Mixed ashley Empirically received Rocephin for 3 days DVT Px: Eliquis CODE STATUS: Full code Disposition Rehab when medically stable Admission and Anticipated Discharge Date Admission Date: March 17, 2022 Subjective Patient seen and examined at bedside. 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 She says that she was able to get out of the bed by herself which had not been the case for several days since the hospitalization. Her morning weight was 84 kg. Her weight at admission was 110 kgs Review of Systems Review of Systems: All systems reviewed & are unremarkable except as noted in Subjective Physical Exam Physical Exam: General- oriented x 3, not in distress, speaks in sentences with no effort or accessory muscle use Eyes- anicteric Neck- no JVD Lungs- clear BS bilaterally, no rales/wheezes Heart- normal rate, regular rhythm; no murmurs Abdomen-Less distended compared to yesterday's examination Extremities- mild pretibial edema, no calf tenderness Neuro- alert, oriented x 3; no gross focal neurologic deficits Skin- warm & dry Results & Data Results & Data ([facility]) Vital Signs (Past 12 Hours) Vital Signs Temp Pulse Pulse Resp BP BP Pulse Ox 04/14/22 10:54 36.7 C 82 18 126/79 97 04/14/22 08:00 85 04/14/22 07: 36.8 C 86 18 111/67 94 04/14/22 03:08 36.7 C 85 16 105/65 93 O2 Del Method 04/14/22 10:54 Room Air 04/14/22 08:00 04/14/22 07:22 Room Air 04/14/22 03:08 Room Air Laboratory Results Laboratory Results WBC 3.54 K/ul (4.8-10.8) L 04/14/22 06:03 RBC 3.43 M/uL (3.93-5.22) L 04/14/22 06:03 Hgb 10.3 g/dl (12.0-16.0) L 04/14/22 06:03 Hct 31.1 % (34.1-44.9) L 04/14/22 06:03 MCV 90.7 fL (80.0-100.0) 04/14/22 06:03 MCH 30.0 pg (25.0-34.0) 04/14/22 06:03 MCHC 33.1 g/dL (32.0-36.0) 04/14/22 06:03 RDW Std Deviation 49.7 fL (36.4-46.3) H 04/14/22 06:03 RDW Coeff of Samy 14.9 % (11.5-14.5) H 04/14/22 06:03 Plt Count 129 K/uL (130-400) L 04/14/22 06:03 MPV 9.7 fL (9.4-12.3) 04/14/22 06:03 Immature Gran % (Auto) 0.6 % 04/14/22 06:03 Neut % (Auto) 60.4 % 04/14/22 06:03 Lymph % (Auto) 24.9 % 04/14/22 06:03 Hinds % (Auto) 9.0 % 04/14/22 06:03 Eos % (Auto) 3.1 % 04/14/22 06:03 Baso % (Auto) 2.0 % 04/14/22 06:03 Neut # (Auto) 2.14 K/uL (1.4-6.5) 04/14/22 06:03 Lymph # (Auto) 0.88 K/uL (1.2-3.4) L 04/14/22 06:03 Hinds # (Auto) 0.32 K/uL (0.24-0.82) 04/14/22 06:03 Eos # (Auto) 0.11 K/uL (0-0.50) 04/14/22 06:03 Baso # (Auto) 0.07 K/uL (0-0.2) 04/14/22 06:03 Immature Gran # (Auto) 0.02 K/uL (0.00-0.02) 04/14/22 06:03 Hypersegmented Neuts Occasional 03/19/22 05:35 PT 15.0 Seconds (9.0-12.0) H 04/09/22 06:00 INR 1.4 (0.9-1.1) H 04/09/22 06:00 APTT 49.0 Seconds (21.0-31.0) H* 03/30/22 23:52 PTT Ratio 1.8 03/30/22 23:52 ABG pH 7.44 (7.35-7.45) 03/18/22 23:23 ABG pCO2 45 mmHg (35-46) 03/18/22 23:23 ABG pO2 102 mmHg (80-95) H 03/18/22 23:23 ABG HCO3 31 mmol/L (19-24) H 03/18/22 23:23 ABG O2 Saturation 99.0 % (90-95) H 03/18/22 23:23 ABG Base Excess 5.6 mEq/L (-9-1.8) H 03/18/22 23:23 Khari Test Pos (Pos) 03/18/22 23:23 Oxygen Given 2L 03/18/22 23:23 Sodium 138 mmol/L (136-145) 04/14/22 06:03 Potassium 3.6 mmol/L (3.5-5.1) 04/14/22 06:03 Chloride 95 mmol/L (98-107) L 04/14/22 06:03 Carbon Dioxide 35 mmol/L (21-32) H 04/14/22 06:03 Anion Gap 8 (3-11) 04/14/22 06:03 BUN 25 mg/dl (6-23) H 04/14/22 06:03 Creatinine 1.06 mg/dl (0.6-1.2) 04/14/22 06:03 Est Cr Clr Drug Dosing 63.7 ml/min 04/14/22 06:03 Est GFR ( Amer) 66.6 ml/min 04/14/22 06:03 Est GFR (Non-Af Amer) 57.4 ml/min 04/14/22 06:03 BUN/Creatinine Ratio 23.6 (10-20) H 04/14/22 06:03 Glucose 107 mg/dl (70-99(Fasting)) H 04/14/22 06:03 POC Glucose 184 mg/dl (70-99) H 04/14/22 11:09 Calcium 9.4 mg/dl (8.5-10.1) 04/14/22 06:03 Phosphorus 3.7 mg/dl (2.5-4.9) 03/30/22 05:49 Magnesium 1.9 mg/dl (1.7-2.4) 03/30/22 05:49 Total Bilirubin 0.7 mg/dl (0.2-1.0) 04/14/22 06:03 Direct Bilirubin 0.2 mg/dl (0-0.2) 03/20/22 06:30 AST 20 U/L (13-39) 04/14/22 06:03 ALT 10 U/L (7-52) 04/14/22 06:03 Alkaline Phosphatase 84 U/L (34-104) 04/14/22 06:03 Troponin I High Sens 35.1 pg/ml (0-14) H 03/25/22 15:57 Total Protein 6.5 gm/dl (6.0-8.3) 04/14/22 06:03 Albumin 3.3 gm/dl (3.4-5.0) L 04/14/22 06:03 Globulin 3.2 gm/dl (2.5-4.0) 04/14/22 06:03 Albumin/Globulin Ratio 1.0 (0.9-2) 04/14/22 06:03 25-OH Vitamin D Total 13.8 ng/ml (30-100) L 03/17/22 11:30 Urine Color Dark Yellow 03/17/22 07:50 Urine Appearance Clear (Clear) 03/17/22 07:50 Urine pH 5.0 (4.5-7.5) 03/17/22 07:50 Ur Specific Mullens 1.018 (1.000-1.030) 03/17/22 07:50 Urine Protein 1+ (Negative) H 03/17/22 07:50 Urine Glucose (UA) Negative (Negative) 03/17/22 07:50 Urine Ketones Trace (Negative) H 03/17/22 07:50 Urine Blood Negative (Negative) 03/17/22 07:50 Urine Nitrite Negative (Negative) 03/17/22 07:50 Urine Bilirubin 1+ (Negative) H 03/17/22 07:50 Urine Urobilinogen Negative (Negative) 03/17/22 07:50 Ur Leukocyte Esterase 2+ (Negative) H 03/17/22 07:50 Urine WBC (Auto) 5-10 /hpf (0-5) H 03/17/22 07:50 Urine RBC (Auto) 5-10 /hpf (0-4) H 03/17/22 07:50 U Hyaline Cast (Auto) 5-10 /lpf (0-5) H 03/17/22 07:50 U Epithel Cells (Auto) >30 /lpf (0-5) H 03/17/22 07:50 Urine Bacteria (Auto) 1+ (Negative) H 03/17/22 07:50 Ur Random Creatinine 105.8 mg/dl 03/17/22 17:50 Ur Random Sodium 76 mmol/L 03/17/22 17:50 Urine Sodium 53 mmol/L 04/08/22 13:00 Urine Potassium 71.1 mmol/L 04/08/22 13:00 Urine Chloride 104 mmol/L 04/08/22 13:00 Fluid Neutrophils % 2 % 04/13/22 10:20 Fluid Lymphocytes % 51 % 04/13/22 10:20 Fluid Eosinophils % 2 % 04/13/22 10:20 Fluid Meso/Macro/Hinds % 45 % 04/13/22 10:20 Fluid Comment 04/13/22 10:20 Peritoneal Color Yellow 04/13/22 10:20 Peritoneal Appearance Clear 04/13/22 10:20 Peritoneal WBC 145 /ul (0-300) 04/13/22 10:20 Peritoneal RBC < 2000 /uL 04/13/22 10:20 Peritoneal Tot Protein < 3.0 gm/dl 04/13/22 Unknown Peritoneal Albumin 1.7 gm/dl 09/19/22 Unknown Stl C. diff Tox B Gene Negative Cdiff Gene (Neg) 04/04/22 16:18 SARS-CoV-2, RNA, NAAT NEGATIVE (NEGATIVE) 03/17/22 11:50 Impressions Abdomen/Pelvis CT 03/17/22 07:[address] WITH CONTRAST, ABDOMEN AND PELVIS CT WITH INTRAVENOUS CONTRAST CT DOSE: 3804.89 mGy.cm HISTORY: fall, left chest pain. Left flank pain. TECHNIQUE: Multiaxial CT images of the chest, abdomen, and pelvis were performed following the intravenous administration of contrast. A dose lowering technique was utilized adhering to the principles of ALARA. COMPARISON: Chest CTA and abdomen pelvis CT 01/21/2022. FINDINGS: Chest CT: There is an old moderate superior endplate compression deformity at T3. There is a subacute mild superior endplate compression fracture at T4. No associated retropulsion. Healing right anterior rib fractures are again noted. There are acute left anterior third through fifth rib fractures. There are few additional healing left anterior rib fractures also noted. Mild elevation the right hemidiaphragm. The central airways are patent. No pneumothorax. No pleural effusions. Bibasilar linear densities consistent with subsegmental atelectasis. Otherwise, no new focal lung consolidations to suggest pneumonia. No evidence for pulmonary edema. There is a 1 cm left thyroid nodule. This does not meet CT criteria for follow-up. Mild body wall edema with left breast skin thickening. No change in the anterior diaphragmatic lymphadenopathy. Subcentimeter distal paraesophageal lymph nodes are again noted. There is no hilar lymphadenopathy. Normal esophagus. The heart is normal in size. No evidence for right-sided heart strain. There is extensive bilateral pulmonary emboli with associated subtle embolus at the main pulmonary arteries. Abdomen/pelvis CT: There is a chronic moderate to severe superior endplate compression deformity at L4, unchanged. No pneumoperitoneum. No pneumatosis. Moderate to severe body wall edema is again noted. There is pelvic floor collapse. The bladder is decompressed. The uterus and bilateral adnexa are unremarkable. No bowel wall thickening or obstruction. There is a large amount of ascites which has slightly progressed. Cirrhotic liver and splenomegaly is again noted. The adrenal glands, pancreas, and kidneys unremarkable. No hydronephrosis. The main portal vein is patent. Mild periportal lymphadenopathy remains unchanged. Normal caliber abdominal aorta. Cholecystectomy. Stable partially calcified pelvic/inguinal lymph nodes. IMPRESSION: 1. Extensive bilateral pulmonary emboli including a saddle embolus within the main pulmonary arteries. No evidence for right-sided heart strain at this time. 2. Acute left anterior third through fifth rib fractures. No pneumothorax. 3. Additional subacute to chronic fractures within the chest and abdomen as described above. 4. Cirrhotic liver with splenomegaly and a large amount of ascites. This has slightly progressed. 5. Moderate to severe body wall edema again noted. 6. Mildly enlarged anterior diaphragmatic and periportal lymph nodes remain unchanged. ACT 112: Negative or not required by law. Electronically signed by: Abe Florentino M.D. 03/17/2022 9:[address] 03/17/22 07:05 CT SCAN OF THE CERVICAL SPINE CLINICAL HISTORY: Trauma. Fall. COMPARISON STUDY: No priors. TECHNIQUE: CT scan of the cervical spine is performed from the skull base to the upper thoracic spine. Images are reviewed in the axial, sagittal, and coronal planes. IV contrast was not administered for this examination. A dose lowering technique was utilized adhering to the principles of ALARA. FINDINGS: Skeletal structures: The skeletal structures are osteopenic. There is no evidence of fracture or subluxation involving the cervical spine. Vertebral body height and alignment are maintained. There is straightening of the cervical lordosis. The odontoid process and lateral masses are intact. The atlantoaxial articulation is preserved noting minimal productive degenerative change. The spinous processes appear intact. Intervertebral discs: There is moderate disc space narrowing at C5-C6. Mild narrowing is seen at the remaining cervical levels. Central canal: Posterior disc osteophyte complexes at C4-C5 and C5-C6 may contribute to mild acquired compromise of the central canal. Soft tissues: The prevertebral and paraspinous soft tissues are within normal limits. There is atherosclerotic calcification of the carotid bulbs. Calvarium: The visualized calvarium at the skull base appears intact. Brain parenchyma: Partially visualized brain parenchyma at the skull base is within normal limits. Sinuses and mastoids: Trace fluid is noted in the sphenoid sinuses. The mastoid air cells are well pneumatized. Lung apices: Clear as visualized. IMPRESSION: 1. There is no evidence of fracture or subluxation involving the cervical spine. 2. Osteopenia and mild spondylotic change as above. ACT 112: Negative or not required by law. Electronically signed by: Felipe Aguirre M.D. 03/17/2022 8:[address] 03/17/22 07:[address] WITH CONTRAST, ABDOMEN AND PELVIS CT WITH INTRAVENOUS CONTRAST CT DOSE: 3804.89 mGy.cm HISTORY: fall, left chest pain. Left flank pain. TECHNIQUE: Multiaxial CT images of the chest, abdomen, and pelvis were performed following the intravenous administration of contrast. A dose lowering technique was utilized adhering to the principles of ALARA. COMPARISON: Chest CTA and abdomen pelvis CT 01/21/2022. FINDINGS: Chest CT: There is an old moderate superior endplate compression deformity at T3. There is a subacute mild superior endplate compression fracture at T4. No associated retropulsion. Healing right anterior rib fractures are again noted. There are acute left anterior third through fifth rib fractures. There are few additional healing left anterior rib fractures also noted. Mild elevation the right hemidiaphragm. The central airways are patent. No pneumothorax. No pleural effusions. Bibasilar linear densities consistent with subsegmental atelectasis. Otherwise, no new focal lung consolidations to suggest pneumonia. No evidence for pulmonary edema. There is a 1 cm left thyroid nodule. This does not meet CT criteria for follow-up. Mild body wall edema with left breast skin thickening. No change in the anterior diaphragmatic lymphadenopathy. Subcentimeter distal paraesophageal lymph nodes are again noted. There is no hilar lymphadenopathy. Normal esophagus. The heart is normal in size. No evidence for right-sided heart strain. There is extensive bilateral pulmonary emboli with associated subtle embolus at the main pulmonary arteries. Abdomen/pelvis CT: There is a chronic moderate to severe superior endplate compression deformity at L4, unchanged. No pneumoperitoneum. No pneumatosis. Moderate to severe body wall edema is again noted. There is pelvic floor collapse. The bladder is decompressed. The uterus and bilateral adnexa are unremarkable. No bowel wall thickening or obstruction. There is a large amount of ascites which has slightly progressed. Cirrhotic liver and splenomegaly is again noted. The adrenal glands, pancreas, and kidneys unremarkable. No hydronephrosis. The main portal vein is patent. Mild periportal lymphadenopathy remains unchanged. Normal caliber abdominal aorta. Cholecystectomy. Stable partially calcified pelvic/inguinal lymph nodes. IMPRESSION: 1. Extensive bilateral pulmonary emboli including a saddle embolus within the main pulmonary arteries. No evidence for right-sided heart strain at this time. 2. Acute left anterior third through fifth rib fractures. No pneumothorax. 3. Additional subacute to chronic fractures within the chest and abdomen as described above. 4. Cirrhotic liver with splenomegaly and a large amount of ascites. This has slightly progressed. 5. Moderate to severe body wall edema again noted. 6. Mildly enlarged anterior diaphragmatic and periportal lymph nodes remain unchanged. ACT 112: Negative or not required by law. Electronically signed by: Abe Florentino M.D. 03/17/2022 9:[address] 03/17/22 07:05 CT SCAN OF THE BRAIN WITHOUT IV CONTRAST CLINICAL HISTORY: Fall. COMPARISON STUDY: No priors. TECHNIQUE: Unenhanced axial CT scan of the brain is performed from the vertex to the skull base. A dose lowering technique was utilized adhering to the principles of ALARA. FINDINGS: Brain parenchyma: There is age-related involutional change noting minimal subcortical and periventricular microangiopathic disease. There is no hemorrhage, mass effect, or evidence of acute territorial ischemia by CT criteria. Mccracken-white matter differentiation is preserved. No extra-axial fluid collection is seen. Chronic lacunar infarcts are noted within both basal ganglia as well as the right thalamus. Ventricles, sulci, cisterns: Prominent secondary to involutional change. Intracranial vasculature: There is atherosclerotic calcification of the cavernous carotid and vertebral arteries. Calvarium: The skeletal structures are osteopenic. No depressed calvarial fracture is identified. Sinuses and mastoids: There is trace fluid within the sphenoid sinuses. The remaining visualized paranasal sinuses are clear. The mastoid air cells are well pneumatized. Orbits: The bony orbits are grossly intact. IMPRESSION: There is no hemorrhage, mass effect, or evidence of acute territorial ischemia by CT criteria. ACT 112: Negative or not required by law. Electronically signed by: Felipe Aguirre M.D. 03/17/2022 8:19 AM Knee X-Ray 03/17/22 07:05 LEFT KNEE 3 VIEWS CLINICAL HISTORY: Fall with left knee pain and swelling. FINDINGS: AP, crosstable lateral, and sunrise views of the left knee are obtained. No prior studies are available for comparison at the time of dictation. The skeletal structures are osteopenic. No fracture is seen. The joint spaces of the knee are maintained. A small joint effusion is noted. Soft tissue edema is present throughout the visualized left lower extremity. IMPRESSION: 1. Soft tissue edema with no acute bony abnormality identified. 2. Small joint effusion. Electronically signed by: Felipe Aguirre M.D. 03/17/2022 8:36 AM Venous Doppler Study 03/17/22 10:11 US venous doppler LE BI CLINICAL HISTORY: pe TECHNIQUE: Bilateral lower extremity real-time compression venous ultrasound with Color Doppler imaging. Utilizing real-time ultrasonic imaging multiple real time high-resolution ultrasonic images with compression and noncompression maneuvers of the deep venous system in addition to color doppler imaging were performed from the common femoral vein through the proximal calf veins. COMPARISON: Comparison is made to Doppler ultrasound 01/06/2022 FINDINGS: There is a deep venous thrombus in the left superficial femoral vein in one of the 2 vessels, which also extends into the popliteal vein. Limited evaluation of the calf vessels bilaterally due to overlying edema and tenderness. Impression: 1. Acute appearing occlusive thrombus in the left lower extremity superficial femoral and popliteal veins. 2. Soft tissue edema in the bilateral calf. No definite thrombus of the calf vessels despite limited evaluation. ACT 112: Negative or not required by law. Electronically signed by: Mihai Motley M.D. 03/17/2022 11:46 AM Chest X-Ray 03/25/22 10:16 XR chest 1V portable CLINICAL HISTORY: chest pain TECHNIQUE: Single frontal radiograph of the chest was obtained. Comparison: Comparison is made to chest radiograph 03/18/[address] chest 03/17/2022 FINDINGS: No lines and tubes are seen. The cardiomediastinal silhouette is normal. Lungs are underinflated but clear. No evidence of pleural effusion or pneumothorax. Noted rib fractures are not well seen radiographically. IMPRESSION: Lungs are underinflated however no acute abnormalities are seen. ACT 112: Negative or not required by law. Electronically signed by: Mihai Motley M.D. 03/25/2022 10:37 AM KUB X-Ray 04/06/22 09:39 KUB HISTORY: lower abdominal pain COMPARISON: KUB 03/26/2022. FINDINGS: Prior cholecystectomy. Centralization of the bowel loops likely represents ascites. Borderline dilated gas-filled loops of large small bowel are seen throughout the abdomen. This could represent a mild ileus. Overall, this has improved compared the prior study. Overall, suboptimal evaluation due to the patient's body habitus. No renal calculi. No ureteral calculi. No pneumoperitoneum or pneumatosis. IMPRESSION: 1. Centralization of the bowel loops representing underlying ascites. 2. A few borderline dilated gas-filled loops of large and small bowel seen throughout the abdomen. This is improved compared the prior study and favors a mild ileus. A low-grade partial small bowel obstruction is considered less likely but not entirely excluded. ACT 112: Negative or not required by law. Electronically signed by: Abe Florentino M.D. 04/06/2022 1:00 PM Abdomen Ultrasound 04/09/22 10:54 US abdomen ltd ascites CLINICAL HISTORY: Follow up on amount of ascites TECHNIQUE: Real-time grayscale sonographic images of the abdomen were obtained. Comparison: Comparison is made to paracentesis 03/31/2022 FINDINGS/IMPRESSION: Large ascites is seen. Partially visualized is nodular contour of the liver compatible with cirrhosis. ACT 112: Negative or not required by law. Electronically signed by: Mihai Motley M.D. 04/09/2022 2:01 PM Paracentesis Ultrasound 04/13/22 09:00 US paracentesis abd w/image CLINICAL HISTORY: 61 years-old Female with Large volume paracentesis. COMPARISON: 04/09/2022 PROCEDURE: The procedure was explained to the patient in the care including the benefits and possible risks/complications. The patient gave verbal understanding and written consent was obtained. A time-out was performed prior to the start of the procedure. The patient was placed on the ultrasound table in the supine position. Using ultrasound guidance, an appropriate procedure site in the left mid abdomen was marked. This area was then prepped and draped in the usual sterile fashion. Local anesthesia was achieved within 1% lidocaine. An 8-Sami centesis catheter was then inserted. Approximately 6.0 liters of clear, yellowish fluid was removed and 1 L was sent to the lab for analysis. The catheter was removed and external pressure was held to achieve hemostasis. A sterile dressing was applied to the procedure site. The patient tolerated the procedure well without immediate complications. IMPRESSION: Successful ultrasound-guided paracentesis with removal of 6 L ascitic fluid. ACT 112: Negative or not required by law. The above report was generated using voice recognition software. It may contain grammatical, syntax or spelling errors. Electronically signed by: Alfred Adames M.D. 04/13/2022 11:52 AM
[2022-04-14] MEDS: DICLOFENAC SOD 1% GEL 100 GM TUBE EXT PRN ×2 (17:37→20:43)
[2022-04-14] MEDS: traMADol HCL 50 MG TABLET PO PRN (19:31)
[2022-04-14] MEDS: HYDROmorphone INJ 0.5 MG/0.5 ML SYR IV PRN (20:41)
[2022-04-15] MEDS: APIXABAN 5 MG TABLET PO SCH ×2 (01:35→12:52)
[2022-04-15 06:16] LABS: Basophils # (auto) 0.09 K/uL (0-0.2); Basophils % (auto) 2.4 %; Eosinophils % (auto) 2.6 %; Hematocrit (blood only) 31.3 % (34.1-44.9); Hemoglobin 10.6 g/dl (12.0-16.0); Immature Granulocytes # (auto) 0.02 K/uL (0.00-0.02); Immature Granulocytes % (auto) 0.5 %; Lymphocytes # (auto) 0.94 K/uL (1.2-3.4); Lymphocytes % (auto) 24.7 %; Mean Corpuscular Hemoglobin 30.3 pg (25.0-34.0); Mean Corpuscular Hgb Conc 33.9 g/dL (32.0-36.0); Mean Corpuscular Volume 89.4 fL (80.0-100.0); Mean Platelet Volume 9.4 fL (9.4-12.3); Monocytes # (auto) 0.31 K/uL (0.24-0.82); Monocytes % (auto) 8.1 %; Neutrophils # (auto) 2.35 K/uL (1.4-6.5); Neutrophils % (auto) 61.7 %; Platelet Count 135 K/uL (130-400); RDW Coefficient of Variation 14.9 % (11.5-14.5); White Blood Count 3.81 K/ul (4.8-10.8)
[2022-04-15 06:40] LABS: Albumin Level 3.5 gm/dl (3.4-5.0); BUN Creatinine Ratio 21.1 (10-20); Bilirubin,Total 0.8 mg/dl (0.2-1.0); Calcium 9.5 mg/dl (8.5-10.1); Creatinine Clr Calc Pharmacy 59.1 ml/min; Est GFR (Non-African American) 52.6 ml/min; Globulin 3.5 gm/dl (2.5-4.0); Potassium 3.6 mmol/L (3.5-5.1)
[2022-04-15] MEDS: CHOLECALCIFEROL 1,000 UNITS 25 MCG TAB PO SCH (08:50)
[2022-04-15] MEDS: POTASSIUM CHLORIDE CRTAB 20 MEQ TABCR PO SCH (08:50)
[2022-04-15] MEDS: metOLazone 5 MG TABLET PO SCH (08:51)
[2022-04-15] MEDS: TORSEMIDE 100 MG TAB PO SCH (08:51)
[2022-04-15] MEDS: DOCUSATE SODIUM 100 MG CAP PO SCH (08:51)
[2022-04-15] MEDS: MAGNESIUM CHLORIDE W/CALCIUM 64MG DELAYED REL TAB PO SCH (08:51)
[2022-04-15] MEDS: INSULIN ASPART PER UNIT SC SCH ×3 (08:56→16:37)
[2022-04-15] MEDS: LANTUS PER UNIT CHARGE SQ SCH (08:57)
[2022-04-15] MEDS: traMADol HCL 50 MG TABLET PO PRN (09:07)
--- NOTE | 2022-04-15 11:07 | Nephrology Progress Note ---
Date of Service April 15, 2022 Assessment & Plan Admission and Anticipated Discharge Date Admission Date: March 17, 2022 Subjective Subjective Assessment & Plan (1) Volume overload: Plan: 61-year-old female admitted to the hospital after she fell from her bed and was found to have left sided rib fracture as well as bilateral significant pulmonary embolism.Nephrology consulted for acute renal failure in a patient with liver cirrhosis with newly diagnosed bilateral pulmonary emboli. Baseline creatinine 1.1. Multiple therapeutic paracentesis this admission, last one 03/31 for 5L. Had BLAIRE earlier this admission, now resolved; bp improved as well. urine 3300 ml yesterday on 100 bid of torsemide+ metolazone 5 daily. for discharge do torsemide 100 daily and 100 bid three times per week. metolazone 5 daily. Stable for Discharge . labs have been stable. possible to [facility]. make sure for daily weight and edema checkup. -cont K 60 mEq bid -daily bmp -needs daily STANDING weights; needs STRICT I/O -tap per GI nephrology f/u within 1 week (2) Hepatic cirrhosis: Plan: US paracentesis w cell ct and fluid analysis without evidence of SBP -As per Gastro recs Subjective Patient seen and examined at bedside. She is comfortably sitting up on the chair. She denies any shortness of breath. Lot less edema than last time i saw her about 10 days ago. last few days urine is about 1500 ml average. Lot less edema and wt down about 50 lbs. Feels much better. urine 1950 ml yesterday Review of Systems Review of Systems: no c/o abdominal pain or discomfort Bilateral pedal edema 1+ Physical Exam Physical Exam: Middle-aged white female who is obese. She is awake, alert, and oriented and was able to give me a detailed account of her medical history and problem. HEENT: Mucous membrane is moist. NECK: Supple and obese neck. Could not appreciate JVD. CHEST: Bilateral decreased breath sound. Poor inspiratory effort limiting the quality of exam. CARDIOVASCULAR: S1 and S2 regular. ABDOMEN: Soft, distended with significant ascites. EXTREMITIES: Bilaterally 1+ edema, much better NEUROLOGIC: Normal speech. Awake, alert, oriented x3. She does not seem confused at this time and was able to give a detailed account of her medical history. Normal speech. Results & Data ([facility]) Vital Signs (Past 12 Hours) Vital Signs Temp Pulse Pulse Resp BP BP Pulse Ox 04/15/22 10:42 36.2 C L 90 20 140/80 97 04/15/22 07:58 36.3 C L 82 16 111/74 96 04/15/22 03:10 36.6 C 82 16 109/74 95 04/14/22 23:51 85 O2 Del Method 04/15/22 10:42 Room Air 04/15/22 07:58 Room Air 04/15/22 03:10 Room Air 04/14/22 23:51
--- NOTE | 2022-04-15 15:36 | Hospitalist Progress Note ---
Date of Service April 15, 2022 Assessment & Plan (1) Volume overload: Plan: (1) Saddle pulmonary embolus: Plan: Acute Saddle pulmonary embolism Acute DVT of Left LE Hx of COVID infection in Jul was vaccinated in 2020 x 2 doses --CT Chest:Extensive bilateral pulmonary emboli including a saddle embolus within the main pulmonary arteries. No evidence for right-sided heart strain at this time. Acute left anterior third through fifth rib fractures. No pneumothorax. Additional subacute to chronic fractures within the chest and abdomen as described above. Cirrhotic liver with splenomegaly and a large amount of ascites. This has slightly progressed. Moderate to severe body wall edema again noted. Mildly enlarged anterior diaphragmatic and periportal lymph nodes remain unchanged. --ECHO:Aortic valve sclerosis mild, without significant aortic valvular stenosis. Left ventricle cavity is small. Moderate concentric LVH. Left ventricle wall motion is normal. Left ventricle is hyperdynamic. EF greater than 70%. Neck: Sign present with hypokinesis of the right ventricular apex with sparing of the basilar structures and mild apical dilatation consistent with acute pulmonary embolus. Trace tricuspid insufficiency is present --Venous Doppler:Acute appearing occlusive thrombus in the left lower extremity superficial femoral and popliteal veins. Soft tissue edema in the bilateral calf. No definite thrombus of the calf vessels despite limited evaluation. If any clinical deterioration, then tPA will be pursued -Stable from PE standpoint. Not on supplemental oxygen. -Continue Eliquis Hepatic cirrhosis: -Nonalcoholic, hepatitis panel was conducted 01/27/2022 as reviewed in outpatient epic and is negative for hep A, B, C -Scheduled with Dr. Mace as outpatient with hepatology on 05/05/22: In end of December pt was placed on lasix 20 mg daily and spironolactone 50 mg daily, lasix was increased to 40 mg daily on 02/11. -Patient underwent paracentesis on 03/20( 3 liters), 03/26( 3 Litres) and 03/31(5 litres) and 04/13 (6 litres) -Studies from 04/13 paracentesis:Cytology was negative for malignancy, No signs of infection with WBC of 145 and 51% lymphocytes., SAAG greater than 1 -Plan to discharge the patient on torsemide once daily (4 days and week ) and twice daily ( 3 times in a week) and metolazone 5 mg daily. Monitor volume status Continue potassium supplement Needs follow-up with nephrology in 1 week Also needs follow-up with GI as outpatient Diarrhea C. difficile negative Imodium as needed Resolved Acute kidney injury - Resolved - Likely contrast induced BLAIRE. - Cr peaked to 1.51 and down trended to baseline. DM II -Last A1c was 9.1 on 01/13/2022 -Holding metformin Continue Insulin Asthma: -Continue albuterol sulfate Left-sided rib fractures Nondisplaced Secondary to fall Continue incentive spirometer Pain is controlled Mechanical fall Fall precautions PT/OT Abnormal UA Ruled out UTI Urine Cx Mixed ashley Empirically received Rocephin for 3 days DVT Px: Eliquis CODE STATUS: Full code Disposition Rehab today Admission and Anticipated Discharge Date Admission Date: March 17, 2022 Subjective Patient is seen and examined at bedside States having back pain overnight which is better this morning Had PT evaluation earlier Denies any chest pain, dyspnea, dizziness, nausea Planned to be discharged to Rehab facility today Discussed with Nephrology today Review of Systems Review of Systems: All systems reviewed & are unremarkable except as noted in Subjective Physical Exam Physical Exam: Physical Exam: Vitals signs as noted above General Appearance:Obese, No apparent distress Head: normocephalic, Atraumatic Eyes: normal inspection, EOMI Neck: supple, Trachea midline Respiratory/Chest: Decreased breath sounds, CTA, No accessory muscle use Cardiovascular: S1, S2, No murmur Abdomen/GI:Soft, Non tender, Bowel sounds present Extremities/Musculoskeletal:normal inspection, +Trace LE edema Neurologic/Psych:AAOX3, grossly no focal neurological deficits Skin: normal color, warm Results & Data Results & Data ([facility]) Vital Signs (Past 12 Hours) Vital Signs Temp Pulse Pulse Resp BP Pulse Ox O2 Del Method 04/15/22 12:45 97 04/15/22 08:00 84 04/15/22 10:42 36.2 C L 90 20 140/80 97 Room Air 04/15/22 07:58 36.3 C L 82 16 111/74 96 Room Air Laboratory Results Short CBC 04/15/22 Range/Units 05:51 WBC 3.81 L (4.8-10.8) K/ul Hgb 10.6 L (12.0-16.0) g/dl Hct 31.3 L (34.1-44.9) % Plt Count 135 (130-400) K/uL BMP 04/15/22 05:51 Sodium 137 Potassium 3.6 Chloride 93 L Carbon Dioxide 36 H BUN 24 H Creatinine 1.14 Glucose 142 H Calcium 9.5 Liver Function 04/15/22 Range/Units 05:51 Total Bilirubin 0.8 (0.2-1.0) mg/dl AST 24 (13-39) U/L ALT 12 (7-52) U/L Alkaline Phosphatase 103 (34-104) U/L Albumin 3.5 (3.4-5.0) gm/dl
--- NOTE | 2022-04-15 15:44 | Discharge Summary ---
Date of Service April 15, 2022 Admission HPI Per Admitting Provider History of Present Illness Chief Complaint: Fall Primary Care Provider: Jonathan Rees MD This is a 61-year-old female with DM type II, hx of COVID infection in Jul 2020 with sequela of hepatic cirrhosis with ascites, obesity with BMI of 39.3, who presents today after a fall out of bed this morning. Subsequently she fell out of bed, accidentally and just thought she was more in the center of the bed. She denies any presyncopal prodrome, dizziness, lightheadedness. Her mother, Idalia, who lives in the same home with her, and is present at bedside, heard her fall out of bed. Patient sustained injury to her left side, left elbow and hit her chin on the bedside table. She reports having some pain there and it is difficult to take deep breaths. She also notes that she has been having shortn ess of breath for about the past month, and that she is significantly winded with minimal ADLs. In general she is sedentary, and walks from kitchen to living room, to bedroom as her main activity. She denies any chest pain or shortness of breath. She denies any history of alcohol use or smoking. 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 Her abdomen seems to remain distended, and has been placed on water pills to help reduce the amount of swelling in her stomach and in her legs. She is abiding by a low sodium diet. Denies changes in dietary habits, bowel movements or complaints with urination including dysuria, increased frequency or hematuria. She denies fever sweats or chills. Today her CT shows left sided rib fractures involving rib 3,4,5 which are new, but also showed that she had new saddle PE with multiple segmental pulmonary emboli, she is not on anticoagulation at home. Pt notes that she may have noticed some worsening shortness of breath within the past 24 hours. Inter estingly she was seen by Pulm on 01/14/22 where she had some complaints of shortness of breath and was scanned for CTPE however the study was negative at that time. Pt has been taking her medications including spironolactone and Lasix as prescribed, both of these medications have been titrated up since she was initially placed on them at the end of December. Admission Exam Per Admitting Provider Physical Exam Physical Exam: General: awake, alert, no apparent distress, obese with BMI of 39.3, + abdominal distention Head: Normocephalic, atraumatic ENT: PERRL, EOMI, no pharyngeal exudate, mucous membranes moist Chest: Clear to auscultation, on room air, no adventitious breath sounds, + pain with deep breaths Cardiac: Regular rate and rhythm, + loud systolic ejection murmur grade 3/6, no JVD, normal peripheral pulses, good capillary refill Abdominal: NABS x 4 quadrants, soft, +distended, + hepatomegaly palpable, no fluid wave, nontender to palpation, no rebound or guarding Extremities: Severe, 3+ pitting peripheral edema bilaterally up to above the knee, no erythema, calfs nontender to palpation Psych: Normal mood and affect Neuro: AAO x 3, strength intact bilaterally and rated 5/5, no motor deficits, speech is clear, no peripheral sensory deficits Principal Diagnosis Saddle pulmonary embolus Decompensated hepatic cirrhosis Acute Kidney Injury Discharge Data Allergies Allergy/AdvReac Type Severity Reaction Status Date / Time No Known Allergies Allergy Verified 03/17/22 09:05 Consultations 03/17/22 10:38 ED Decision to Admit Stat 03/17/22 14:36 Consult Pulmonology Routine 03/18/22 08:51 Consult Nephrology Routine 03/19/22 07:22 Consult Gastroenterology Routine Procedures Performed Operation Date: 04/13/22 09:00 <No data on this case meets the specified criteria> Laboratory Results WBC 3.81 K/ul (4.8-10.8) L 04/15/22 05:51 RBC 3.50 M/uL (3.93-5.22) L 04/15/22 05:51 Hgb 10.6 g/dl (12.0-16.0) L 04/15/22 05:51 Hct 31.3 % (34.1-44.9) L 04/15/22 05:51 MCV 89.4 fL (80.0-100.0) 04/15/22 05:51 MCH 30.3 pg (25.0-34.0) 04/15/22 05:51 MCHC 33.9 g/dL (32.0-36.0) 04/15/22 05:51 RDW Std Deviation 49.0 fL (36.4-46.3) H 04/15/22 05:51 RDW Coeff of Samy 14.9 % (11.5-14.5) H 04/15/22 05:51 Plt Count 135 K/uL (130-400) 04/15/22 05:51 MPV 9.4 fL (9.4-12.3) 04/15/22 05:51 Immature Gran % (Auto) 0.5 % 04/15/22 05:51 Neut % (Auto) 61.7 % 04/15/22 05:51 Lymph % (Auto) 24.7 % 04/15/22 05:51 Camp % (Auto) 8.1 % 04/15/22 05:51 Eos % (Auto) 2.6 % 04/15/22 05:51 Baso % (Auto) 2.4 % 04/15/22 05:51 Neut # (Auto) 2.35 K/uL (1.4-6.5) 04/15/22 05:51 Lymph # (Auto) 0.94 K/uL (1.2-3.4) L 04/15/22 05:51 Camp # (Auto) 0.31 K/uL (0.24-0.82) 04/15/22 05:51 Eos # (Auto) 0.10 K/uL (0-0.50) 04/15/22 05:51 Baso # (Auto) 0.09 K/uL (0-0.2) 04/15/22 05:51 Immature Gran # (Auto) 0.02 K/uL (0.00-0.02) 04/15/22 05:51 Hypersegmented Neuts Occasional 03/19/22 05:35 PT 15.0 Seconds (9.0-12.0) H 04/09/22 06:00 INR 1.4 (0.9-1.1) H 04/09/22 06:00 APTT 49.0 Seconds (21.0-31.0) H* 03/30/22 23:52 PTT Ratio 1.8 03/30/22 23:52 ABG pH 7.44 (7.35-7.45) 03/18/22 23:23 ABG pCO2 45 mmHg (35-46) 03/18/22 23:23 ABG pO2 102 mmHg (80-95) H 03/18/22 23:23 ABG HCO3 31 mmol/L (19-24) H 03/18/22 23:23 ABG O2 Saturation 99.0 % (90-95) H 03/18/22 23:23 ABG Base Excess 5.6 mEq/L (-9-1.8) H 03/18/22 23:23 Khari Test Pos (Pos) 03/18/22 23:23 Oxygen Given 2L 03/18/22 23:23 Sodium 137 mmol/L (136-145) 04/15/22 05:51 Potassium 3.6 mmol/L (3.5-5.1) 04/15/22 05:51 Chloride 93 mmol/L (98-107) L 04/15/22 05:51 Carbon Dioxide 36 mmol/L (21-32) H 04/15/22 05:51 Anion Gap 8 (3-11) 04/15/22 05:51 BUN 24 mg/dl (6-23) H 04/15/22 05:51 Creatinine 1.14 mg/dl (0.6-1.2) 04/15/22 05:51 Est Cr Clr Drug Dosing 59.1 ml/min 04/15/22 05:51 Est GFR ( Amer) 61.0 ml/min 04/15/22 05:51 Est GFR (Non-Af Amer) 52.6 ml/min 04/15/22 05:51 BUN/Creatinine Ratio 21.1 (10-20) H 04/15/22 05:51 Glucose 142 mg/dl (70-99(Fasting)) H 04/15/22 05:51 POC Glucose 132 mg/dl (70-99) H 04/15/22 11:12 Calcium 9.5 mg/dl (8.5-10.1) 04/15/22 05:51 Phosphorus 3.7 mg/dl (2.5-4.9) 03/30/22 05:49 Magnesium 1.9 mg/dl (1.7-2.4) 03/30/22 05:49 Total Bilirubin 0.8 mg/dl (0.2-1.0) 04/15/22 05:51 Direct Bilirubin 0.2 mg/dl (0-0.2) 03/20/22 06:30 AST 24 U/L (13-39) 04/15/22 05:51 ALT 12 U/L (7-52) 04/15/22 05:51 Alkaline Phosphatase 103 U/L (34-104) 04/15/22 05:51 Troponin I High Sens 35.1 pg/ml (0-14) H 03/25/22 15:57 Total Protein 7.0 gm/dl (6.0-8.3) 04/15/22 05:51 Albumin 3.5 gm/dl (3.4-5.0) 04/15/22 05:51 Globulin 3.5 gm/dl (2.5-4.0) 04/15/22 05:51 Albumin/Globulin Ratio 1.0 (0.9-2) 04/15/22 05:51 25-OH Vitamin D Total 13.8 ng/ml (30-100) L 03/17/22 11:30 Urine Color Dark Yellow 03/17/22 07:50 Urine Appearance Clear (Clear) 03/17/22 07:50 Urine pH 5.0 (4.5-7.5) 03/17/22 07:50 Ur Specific [place] 1.018 (1.000-1.030) 03/17/22 07:50 Urine Protein 1+ (Negative) H 03/17/22 07:50 Urine Glucose (UA) Negative (Negative) 03/17/22 07:50 Urine Ketones Trace (Negative) H 03/17/22 07:50 Urine Blood Negative (Negative) 03/17/22 07:50 Urine Nitrite Negative (Negative) 03/17/22 07:50 Urine Bilirubin 1+ (Negative) H 03/17/22 07:50 Urine Urobilinogen Negative (Negative) 03/17/22 07:50 Ur Leukocyte Esterase 2+ (Negative) H 03/17/22 07:50 Urine WBC (Auto) 5-10 /hpf (0-5) H 03/17/22 07:50 Urine RBC (Auto) 5-10 /hpf (0-4) H 03/17/22 07:50 U Hyaline Cast (Auto) 5-10 /lpf (0-5) H 03/17/22 07:50 U Epithel Cells (Auto) >30 /lpf (0-5) H 03/17/22 07:50 Urine Bacteria (Auto) 1+ (Negative) H 03/17/22 07:50 Ur Random Creatinine 105.8 mg/dl 03/17/22 17:50 Ur Random Sodium 76 mmol/L 03/17/22 17:50 Urine Sodium 53 mmol/L 04/08/22 13:00 Urine Potassium 71.1 mmol/L 04/08/22 13:00 Urine Chloride 104 mmol/L 04/08/22 13:00 Fluid Neutrophils % 2 % 04/13/22 10:20 Fluid Lymphocytes % 51 % 04/13/22 10:20 Fluid Eosinophils % 2 % 04/13/22 10:20 Fluid Mes[place]/Macro/Camp % 45 % 04/13/22 10:20 Fluid Comment 04/13/22 10:20 Peritoneal Color Yellow 04/13/22 10:20 Peritoneal Appearance Clear 04/13/22 10:20 Peritoneal WBC 145 /ul (0-300) 04/13/22 10:20 Peritoneal RBC < 2000 /uL 04/13/22 10:20 Peritoneal Tot Protein < 3.0 gm/dl 04/13/22 Unknown Peritoneal Albumin 1.7 gm/dl 04/13/22 Unknown Stl C. diff Tox B Gene Negative Cdiff Gene (Neg) 04/04/22 16:18 SARS-CoV-2, RNA, NAAT NEGATIVE (NEGATIVE) 03/17/22 11:50 Impressions Abdomen/Pelvis CT 03/17/22 07:[address] WITH CONTRAST, ABDOMEN AND PELVIS CT WITH INTRAVENOUS CONTRAST CT DOSE: 3804.89 mGy.cm HISTORY: fall, left chest pain. Left flank pain. TECHNIQUE: Multiaxial CT images of the chest, abdomen, and pelvis were performed following the intravenous administration of contrast. A dose lowering technique was utilized adhering to the principles of ALARA. COMPARISON: Chest CTA and abdomen pelvis CT 01/21/2022. FINDINGS: Chest CT: There is an old moderate superior endplate compression deformity at T3. There is a subacute mild superior endplate compression fracture at T4. No associated retropulsion. Healing right anterior rib fractures are again noted. There are acute left anterior third through fifth rib fractures. There are few additional healing left anterior rib fractures also noted. Mild elevation the right hemidiaphragm. The central airways are patent. No pneumothorax. No pleural effusions. Bibasilar linear densities consistent with subsegmental atelectasis. Otherwise, no new focal lung consolidations to suggest pneumonia. No evidence for pulmonary edema. There is a 1 cm left thyroid nodule. This does not meet CT criteria for follow-up. Mild body wall edema with left breast skin thickening. No change in the anterior diaphragmatic lymphadenopathy. Subcentimeter distal paraesophageal lymph nodes are again noted. There is no hilar lymphadenopathy. Normal esophagus. The heart is normal in size. No evidence for right-sided heart strain. There is extensive bilateral pulmonary emboli with associated subtle embolus at the main pulmonary arteries. Abdomen/pelvis CT: There is a chronic moderate to severe superior endplate compression deformity at L4, unchanged. No pneumoperitoneum. No pneumatosis. Moderate to severe body wall edema is again noted. There is pelvic floor collapse. The bladder is decompressed. The uterus and bilateral adnexa are unremarkable. No bowel wall thickening or obstruction. There is a large amount of ascites which has slightly progressed. Cirrhotic liver and splenomegaly is again noted. The adrenal glands, pancreas, and kidneys unremarkable. No hydronephrosis. The main portal vein is patent. Mild periportal lymphadenopathy remains unchanged. Normal caliber abdominal aorta. Cholecystectomy. Stable partially calcified pelvic/inguinal lymph nodes. IMPRESSION: 1. Extensive bilateral pulmonary emboli including a saddle embolus within the main pulmonary arteries. No evidence for right-sided heart strain at this time. 2. Acute left anterior third through fifth rib fractures. No pneumothorax. 3. Additional subacute to chronic fractures within the chest and abdomen as described above. 4. Cirrhotic liver with splenomegaly and a large amount of ascites. This has slightly progressed. 5. Moderate to severe body wall edema again noted. 6. Mildly enlarged anterior diaphragmatic and periportal lymph nodes remain unchanged. ACT 112: Negative or not required by law. Electronically signed by: Abe Florentino M.D. 03/17/2022 9:[address] 03/17/22 07:05 CT SCAN OF THE CERVICAL SPINE CLINICAL HISTORY: Trauma. Fall. COMPARISON STUDY: No priors. TECHNIQUE: CT scan of the cervical spine is performed from the skull base to the upper thoracic spine. Images are reviewed in the axial, sagittal, and coronal planes. IV contrast was not administered for this examination. A dose lowering technique was utilized adhering to the principles of ALARA. FINDINGS: Skeletal structures: The skeletal structures are osteopenic. There is no evidence of fracture or subluxation involving the cervical spine. Vertebral body height and alignment are maintained. There is straightening of the cervical lordosis. The odontoid process and lateral masses are intact. The atlantoaxial articulation is preserved noting minimal productive degenerative change. The spinous processes appear intact. Intervertebral discs: There is moderate disc space narrowing at C5-C6. Mild narrowing is seen at the remaining cervical levels. Central canal: Posterior disc osteophyte complexes at C4-C5 and C5-C6 may contribute to mild acquired compromise of the central canal. Soft tissues: The prevertebral and paraspinous soft tissues are within normal limits. There is atherosclerotic calcification of the carotid bulbs. Calvarium: The visualized calvarium at the skull base appears intact. Brain parenchyma: Partially visualized brain parenchyma at the skull base is within normal limits. Sinuses and mastoids: Trace fluid is noted in the sphenoid sinuses. The mastoid air cells are well pneumatized. Lung apices: Clear as visualized. IMPRESSION: 1. There is no evidence of fracture or subluxation involving the cervical spine. 2. Osteopenia and mild spondylotic change as above. ACT 112: Negative or not required by law. Electronically signed by: Felipe Aguirre M.D. 03/17/2022 8:[address] 03/17/22 07:[address] WITH CONTRAST, ABDOMEN AND PELVIS CT WITH INTRAVENOUS CONTRAST CT DOSE: 3804.89 mGy.cm HISTORY: fall, left chest pain. Left flank pain. TECHNIQUE: Multiaxial CT images of the chest, abdomen, and pelvis were performed following the intravenous administration of contrast. A dose lowering technique was utilized adhering to the principles of ALARA. COMPARISON: Chest CTA and abdomen pelvis CT 01/21/2022. FINDINGS: Chest CT: There is an old moderate superior endplate compression deformity at T3. There is a subacute mild superior endplate compression fracture at T4. No associated retropulsion. Healing right anterior rib fractures are again noted. There are acute left anterior third through fifth rib fractures. There are few additional healing left anterior rib fractures also noted. Mild elevation the right hemidiaphragm. The central airways are patent. No pneumothorax. No pleural effusions. Bibasilar linear densities consistent with subsegmental atelectasis. Otherwise, no new focal lung consolidations to suggest pneumonia. No evidence for pulmonary edema. There is a 1 cm left thyroid nodule. This does not meet CT criteria for follow-up. Mild body wall edema with left breast skin thickening. No change in the anterior diaphragmatic lymphadenopathy. Subcentimeter distal paraesophageal lymph nodes are again noted. There is no hilar lymphadenopathy. Normal esophagus. The heart is normal in size. No evidence for right-sided heart strain. There is extensive bilateral pulmonary emboli with associated subtle embolus at the main pulmonary arteries. Abdomen/pelvis CT: There is a chronic moderate to severe superior endplate compression deformity at L4, unchanged. No pneumoperitoneum. No pneumatosis. Moderate to severe body wall edema is again noted. There is pelvic floor collapse. The bladder is decompressed. The uterus and bilateral adnexa are unremarkable. No bowel wall thickening or obstruction. There is a large amount of ascites which has slightly progressed. Cirrhotic liver and splenomegaly is again noted. The adrenal glands, pancreas, and kidneys unremarkable. No hydronephrosis. The main portal vein is patent. Mild periportal lymphadenopathy remains unchanged. Normal caliber abdominal aorta. Cholecystectomy. Stable partially calcified pelvic/inguinal lymph nodes. IMPRESSION: 1. Extensive bilateral pulmonary emboli including a saddle embolus within the main pulmonary arteries. No evidence for right-sided heart strain at this time. 2. Acute left anterior third through fifth rib fractures. No pneumothorax. 3. Additional subacute to chronic fractures within the chest and abdomen as described above. 4. Cirrhotic liver with splenomegaly and a large amount of ascites. This has slightly progressed. 5. Moderate to severe body wall edema again noted. 6. Mildly enlarged anterior diaphragmatic and periportal lymph nodes remain unchanged. ACT 112: Negative or not required by law. Electronically signed by: Abe Florentino M.D. 03/17/2022 9:[address] 03/17/22 07:05 CT SCAN OF THE BRAIN WITHOUT IV CONTRAST CLINICAL HISTORY: Fall. COMPARISON STUDY: No priors. TECHNIQUE: Unenhanced axial CT scan of the brain is performed from the vertex to the skull base. A dose lowering technique was utilized adhering to the principles of ALARA. FINDINGS: Brain parenchyma: There is age-related involutional change noting minimal subcortical and periventricular microangiopathic disease. There is no hemorrhage, mass effect, or evidence of acute territorial ischemia by CT criteria. Mccracken-white matter differentiation is preserved. No extra-axial fluid collection is seen. Chronic lacunar infarcts are noted within both basal ganglia as well as the right thalamus. Ventricles, sulci, cisterns: Prominent secondary to involutional change. Intracranial vasculature: There is atherosclerotic calcification of the cavernous carotid and vertebral arteries. Calvarium: The skeletal structures are osteopenic. No depressed calvarial fracture is identified. Sinuses and mastoids: There is trace fluid within the sphenoid sinuses. The remaining visualized paranasal sinuses are clear. The mastoid air cells are well pneumatized. Orbits: The bony orbits are grossly intact. IMPRESSION: There is no hemorrhage, mass effect, or evidence of acute territorial ischemia by CT criteria. ACT 112: Negative or not required by law. Electronically signed by: Felipe Aguirre M.D. 03/17/2022 8:19 AM Knee X-Ray 03/17/22 07:05 LEFT KNEE 3 VIEWS CLINICAL HISTORY: Fall with left knee pain and swelling. FINDINGS: AP, crosstable lateral, and sunrise views of the left knee are obtained. No prior studies are available for comparison at the time of dictation. The skeletal structures are osteopenic. No fracture is seen. The joint spaces of the knee are maintained. A small joint effusion is noted. Soft tissue edema is present throughout the visualized left lower extremity. IMPRESSION: 1. Soft tissue edema with no acute bony abnormality identified. 2. Small joint effusion. Electronically signed by: Felipe Aguirre M.D. 03/17/2022 8:36 AM Venous Doppler Study 03/17/22 10:11 US venous doppler LE BI CLINICAL HISTORY: pe TECHNIQUE: Bilateral lower extremity real-time compression venous ultrasound with Color Doppler imaging. Utilizing real-time ultrasonic imaging multiple real time high-resolution ultrasonic images with compression and noncompression maneuvers of the deep venous system in addition to color doppler imaging were performed from the common femoral vein through the proximal calf veins. COMPARISON: Comparison is made to Doppler ultrasound 01/06/2022 FINDINGS: There is a deep venous thrombus in the left superficial femoral vein in one of the 2 vessels, which also extends into the popliteal vein. Limited evaluation of the calf vessels bilaterally due to overlying edema and tenderness. Impression: 1. Acute appearing occlusive thrombus in the left lower extremity superficial femoral and popliteal veins. 2. Soft tissue edema in the bilateral calf. No definite thrombus of the calf vessels despite limited evaluation. ACT 112: Negative or not required by law. Electronically signed by: Mihai Motley M.D. 03/17/2022 11:46 AM Chest X-Ray 03/25/22 10:16 XR chest 1V portable CLINICAL HISTORY: chest pain TECHNIQUE: Single frontal radiograph of the chest was obtained. Comparison: Comparison is made to chest radiograph 03/18/[address] chest 03/17/2022 FINDINGS: No lines and tubes are seen. The cardiomediastinal silhouette is normal. Lungs are underinflated but clear. No evidence of pleural effusion or pneumothorax. Noted rib fractures are not well seen radiographically. IMPRESSION: Lungs are underinflated however no acute abnormalities are seen. ACT 112: Negative or not required by law. Electronically signed by: Mihai Motley M.D. 03/25/2022 10:37 AM KUB X-Ray 04/06/22 09:39 KUB HISTORY: lower abdominal pain COMPARISON: KUB 03/26/2022. FINDINGS: Prior cholecystectomy. Centralization of the bowel loops likely represents ascites. Borderline dilated gas-filled loops of large small bowel are seen throughout the abdomen. This could represent a mild ileus. Overall, this has improved compared the prior study. Overall, suboptimal evaluation due to the patient's body habitus. No renal calculi. No ureteral calculi. No pneumoperitoneum or pneumatosis. IMPRESSION: 1. Centralization of the bowel loops representing underlying ascites. 2. A few borderline dilated gas-filled loops of large and small bowel seen throughout the abdomen. This is improved compared the prior study and favors a mild ileus. A low-grade partial small bowel obstruction is considered less likely but not entirely excluded. ACT 112: Negative or not required by law. Electronically signed by: Abe Florentino M.D. 04/06/2022 1:00 PM Abdomen Ultrasound 04/09/22 10:54 US abdomen ltd ascites CLINICAL HISTORY: Follow up on amount of ascites TECHNIQUE: Real-time grayscale sonographic images of the abdomen were obtained. Comparison: Comparison is made to paracentesis 03/31/2022 FINDINGS/IMPRESSION: Large ascites is seen. Partially visualized is nodular contour of the liver compatible with cirrhosis. ACT 112: Negative or not required by law. Electronically signed by: Mihai Motley M.D. 04/09/2022 2:01 PM Paracentesis Ultrasound 04/13/22 09:00 US paracentesis abd w/image CLINICAL HISTORY: 61 years-old Female with Large volume paracentesis. COMPARISON: 04/09/2022 PROCEDURE: The procedure was explained to the patient in the care including the benefits and possible risks/complications. The patient gave verbal unders tanding and written consent was obtained. A time-out was performed prior to the start of the procedure. The patient was placed on the ultrasound table in the supine position. Using ultrasound guidance, an appropriate procedure site in the left mid abdomen was marked. This area was then prepped and draped in the usual sterile fashion. Local anesthesia was achieved within 1% lidocaine. An 8-Kazakh centesis catheter was then inserted. Approximately 6.0 liters of clear, yellowish fluid was removed and 1 L was sent to the lab for analysis. The catheter was removed and external pressure was held to achieve hemostasis. A sterile dressing was applied to the procedure site. The patient tolerated the procedure well without immediate complications. IMPRESSION: Successful ultrasound-guided paracentesis with removal of 6 L ascitic fluid. ACT 112: Negative or not required by law. The above report was generated using voice recognition software. It may contain grammatical, syntax or spelling errors. Electronically signed by: Alferd Adames M.D. 04/13/2022 11:52 AM Ordered Studies 03/17/22 07:05 CT Abd and Pelvis [CT abd pelvis IV con only] Stat CT cervical spine wo con Stat CT chest diagnostic w con Stat CT head/brain wo con Stat 03/17/22 10:11 US venous doppler LE BI Stat 03/20/22 09:00 US paracentesis abd w/image Routine 03/25/22 07:00 US abdomen ltd ascites Routine 03/26/22 10:00 US paracentesis abd w/image Routine 03/29/22 10:59 US abdomen limited Urgent 03/31/22 US paracentesis abd w/image Routine 04/09/22 10:54 US abdomen ltd ascites Routine 04/13/22 09:00 US paracentesis abd w/image Routine Hospital Course (1) Volume overload: (1) Saddle pulmonary embolus: Plan: Acute Saddle pulmonary embolism Acute DVT of Left LE Hx of COVID infection in Jul was vaccinated in 2020 x 2 doses --CT Chest:Extensive bilateral pulmonary emboli including a saddle embolus within the main pulmonary arteries. No evidence for right-sided heart strain at this time. Acute left anterior third through fifth rib fractures. No pneumothorax. Additional subacute to chronic fractures within the chest and abdomen as described above. Cirrhotic liver with splenomegaly and a large amount of ascites. This has slightly progressed. Moderate to severe body wall edema again noted. Mildly enlarged anterior diaphragmatic and periportal lymph nodes remain unchanged. --ECHO:Aortic valve sclerosis mild, without significant aortic valvular stenosis. Left ventricle cavity is small. Moderate concentric LVH. Left ventricle wall motion is normal. Left ventricle is hyperdynamic. EF greater than 70%. Neck: Sign present with hypokinesis of the right ventricular apex with sparing of the basilar structures and mild apical dilatation consistent with acute pulmonary embolus. Trace tricuspid insufficiency is present --Venous Doppler:Acute appearing occlusive thrombus in the left lower extremity superficial femoral and popliteal veins. Soft tissue edema in the bilateral calf. No definite thrombus of the calf vessels despite limited evaluation. If any clinical deterioration, then tPA will be pursued -Stable from PE standpoint. Not on supplemental oxygen. -Continue Eliquis Hepatic cirrhosis: -Nonalcoholic, hepatitis panel was conducted 01/27/2022 as reviewed in outpatient epic and is negative for hep A, B, C -Scheduled with Dr. Mace as outpatient with hepatology on 05/05/22: In end of December pt was placed on lasix 20 mg daily and spironolactone 50 mg daily, lasix was increased to 40 mg daily on 02/11. -Patient underwent paracentesis on 03/20( 3 liters), 03/26( 3 Litres) and 03/31(5 litres) and 04/13 (6 litres) -Studies from 04/13 paracentesis:Cytology was negative for malignancy, No signs of infection with WBC of 145 and 51% lymphocytes., SAAG greater than 1 -Plan to discharge the patient on torsemide once daily (4 days and week ) and twice daily ( 3 times in a week) and metolazone 5 mg daily. Monitor volume status Continue potassium supplement Needs follow-up with nephrology in 1 week Also needs follow-up with GI as outpatient Diarrhea C. difficile negative Imodium as needed Resolved Acute kidney injury - Resolved - Likely contrast induced BLAIRE. - Cr peaked to 1.51 and down trended to baseline. DM II -Last A1c was 9.1 on 01/13/2022 -Holding metformin Continue Insulin Asthma: -Continue albuterol sulfate Left-sided rib fractures Nondisplaced Secondary to fall Continue incentive spirometer Pain is controlled Mechanical fall Fall precautions PT/OT Abnormal UA Ruled out UTI Urine Cx Mixed ashley Empirically received Rocephin for 3 days DVT Px: Eliquis CODE STATUS: Full code Disposition Rehab today Total Time Total Time Spent Total Time Spent (In Minutes): 55 minutes Discharge Plan Discharge Items Patient Disposition: Transfer Inpatient Rehab Fac Reason For Visit: PULMONARY EMBOLUS Discharge Diagnosis: Saddle pulmonary embolus Decompensated hepatic cirrhosis Acute Kidney Injury Condition on Discharge: Fair Activity: Resume your previous activity Exercise/Sports: Gradually increase as tolerated Non-emergency contact: Primary Care Provider, Pipe Fitter Supervisor and Brim Stretching Machine Operator Call non-emergency contact if: you have any medication questions, your symptoms worsen and your pain is concerning for you Follow-up/Referrals: Jonathan Rees MD [Primary Care Provider] - Diet: Carb Consistent or DM2, Low Potassium (2gm) and Low Sodium (2gm) Fluids: 1500ml (6 cups) Addtl Attending Provider Instructions: Please follow the following instructions regarding diuretics: 1) Take Torsemide 100 mg once daily on Wednesday, Wednesday, and Wednesday. 2) Take Torsemide 100mg twice daily on Wednesday, Wednesday and Wednesday. 3) Take Metolazone 5mg once daily. Take daily Standing weight and Maintain Strict input and output. If patient has significant volume overload which includes shortness of breath, significant weight gain. She will need paracentesis by Radiology every week or every two weeks. She needs follow up with Physician Practice Administrator. Please continue on Elqiuis Twice daily. She will need indefinite therapy as patient has massive PE on presentation Addtl Equal Opportunity Assistant Provider Instructions: Follow-up with your primary care physician Dr. Rees in 1 week upon discharge from rehab facility Follow-up with your supervisor car and yard in 1 week Follow-up with your solid waste collection worker as recommended Pending Studies at Discharge: No Stand-Alone Forms: [email or web address] Skilled Items Patient informed of condition?: Yes DNR: No Discharge Level of Care: Acute rehab Communicable Disease: No Discharge Prognosis: Improving Lines: None Urinary Catheter: No Medications and DC Order Prescriptions: New cholecalciferol (vitamin D3) 25 mcg (1,000 unit) Capsule 1,000 unit PO QAM Qty: 20 0RF metolazone 5 mg Tablet 5 mg PO QAM Qty: 30 0RF nystatin [Nystop] 100,000 unit/gram Powder 1 applic EXT TIDM PRN (Reason: rash) Qty: 30 0RF polyethylene glycol 3350 [Miralax] 17 gram Powder In Packet 17 g PO DAILY PRN (Reason: constipation) Qty: 30 0RF docusate sodium 100 mg Capsule 100 mg PO BID Qty: 20 0RF Eliquis 5 mg Tablet 5 mg PO Q12H Qty: 60 0RF melatonin 3 mg Tablet 3 mg PO HS PRN (Reason: sleep) Qty: 30 0RF potassium chloride 20 mEq Tablet,Er Particles/Crystals 60 meq PO BID Qty: 600 0RF torsemide 100 mg tablet 100 mg PO BID Qty: 60 0RF Continued metformin 500 mg tablet 500 mg PO BIDM albuterol sulfate 90 mcg/actuation HFA aerosol inhaler 2 puff INHALATION Q4 PRN (Reason: Shortness Of Breath Or Wheezing) insulin glargine [Lantus Solostar U-100 Insulin] 100 unit/mL (3 mL) insulin pen 10 unit SUBCUT QAM Discontinued furosemide 20 mg tablet 20 mg PO QAM spironolactone 50 mg tablet 100 mg PO QAM Discharge Orders: Discharge Order (Routine); Ordered 04/15/22 Ordered By: Sj Mcgill Admission Data Admit Date/Time: 03/17/22 11:13 Attending Provider: Sj Mcgill Admit Provider: Marti Pike Primary Care Provider: Jonathan Rees Other Providers: Marti Pike ; Cali Brown ; Mer Vinson ; [facility] ; [place] ; America Coppola ; Sj Mcgill ; Fabián Salinas
== END 2022-04-15 17:20 | DRG 176 ==
LOC: ED 06:47 → 2E 11:13 → SUATTDRO 11:13 → 2E 13:35
DX: Z82.5 Family history of asthma and other chronic lower respiratory diseases; I82.412 Acute embolism and thrombosis of left femoral vein; Z79.4 Long term (current) use of insulin; E87.5 Hyperkalemia; I26.92 Saddle embolus of pulmonary artery without acute cor pulmonale; T50.8X5A Adverse effect of diagnostic agents, initial encounter; M25.562 Pain in left knee; M79.A3 Nontraumatic compartment syndrome of abdomen; K59.00 Constipation, unspecified; K76.6 Portal hypertension; I82.432 Acute embolism and thrombosis of left popliteal vein; Z79.899 Other long term (current) drug therapy; R18.8 Other ascites; Z79.84 Long term (current) use of oral hypoglycemic drugs; Y92.003 Bedroom of unspecified non-institutional (private) residence as the place of occurrence of the external cause; R82.89 Other abnormal findings on cytological and histological examination of urine; S22.42XA Multiple fractures of ribs, left side, initial encounter for closed fracture; Z68.39 Body mass index [BMI] 39.0-39.9, adult; K75.81 Nonalcoholic steatohepatitis (NASH); W06.XXXA Fall from bed, initial encounter; Y99.8 Other external cause status; E66.2 Morbid (severe) obesity with alveolar hypoventilation; Z82.49 Family history of ischemic heart disease and other diseases of the circulatory system; E66.01 Morbid (severe) obesity due to excess calories; E87.79 Other fluid overload; N17.9 Acute kidney failure, unspecified; E87.1 Hypo-osmolality and hyponatremia; Z20.822 Contact with and (suspected) exposure to COVID-19; U09.9 Post COVID-19 condition, unspecified; R09.02 Hypoxemia; E11.9 Type 2 diabetes mellitus without complications; J45.909 Unspecified asthma, uncomplicated; R19.7 Diarrhea, unspecified; K74.69 Other cirrhosis of liver

== ENCOUNTER 2023-02-25 14:23 | Inpatient (IN) ==
[2023-02-25 15:14] LABS: Basophils # (auto) 0.07 K/uL (0-0.2); Basophils % (auto) 1.4 %; Eosinophils # (auto) 0.03 K/uL (0-0.50); Eosinophils % (auto) 0.6 %; Hematocrit (blood only) 21.2 % (37.0-47.0); Hemoglobin 7.4 g/dl (12.0-16.0); Immature Granulocytes # (auto) 0.02 K/uL (0.01-0.20); Immature Granulocytes % (auto) 0.4 %; Lymphocytes # (auto) 0.78 K/uL (1.2-3.4); Lymphocytes % (auto) 16.1 %; Mean Corpuscular Hemoglobin 28.8 pg (25.0-34.0); Mean Corpuscular Hgb Conc 34.9 g/dL (32.0-36.0); Mean Corpuscular Volume 82.5 fL (80.0-100.0); Monocytes # (auto) 0.29 K/uL (0.11-0.59); Neutrophils # (auto) 3.65 K/uL (1.40-6.50); Neutrophils % (auto) 75.5 %; Platelet Count 160 K/uL (130-400); RDW Coefficient of Variation 14.5 % (11.5-14.5); RDW Standard Deviation 42.4 fL (36.4-46.3); Red Blood Count 2.57 M/uL (4.20-5.40); White Blood Count 4.84 K/ul (4.8-10.8)
[2023-02-25] MEDS ORDERED: SODIUM CHLORIDE 0.9% 1000ML 500 ML IV ONE (15:30)
[2023-02-25] MEDS ORDERED: SODIUM CHLORIDE 0.9% 250 ML IV PRN ×2 (15:30→15:48)
[2023-02-25 15:34] LABS: Alanine Aminotransferase 21 U/L (7-52); Alkaline Phosphatase 114 U/L (34-104); Anion Gap 13 (3-11); Aspartate Aminotransferase 28 U/L (13-39); BUN Creatinine Ratio 43.6 (10-20); Bilirubin,Total 0.8 mg/dl (0.2-1.0); Blood Urea Nitrogen 85 mg/dl (6-23); Calcium 9.9 mg/dl (8.6-10.3); Carbon Dioxide 36 mmol/L (21-32); Chloride 83 mmol/L (98-107); Est GFR (African American) 31.6 ml/min; Est GFR (Non-African American) 27.3 ml/min; Globulin 4.1 gm/dl (2.5-4.0); Glucose 345 mg/dl (70-99(Fasting)); Potassium 2.6 mmol/L (3.5-5.1); Sodium 132 mmol/L (136-145); Total Protein 8.1 gm/dl (6.0-8.3)
[2023-02-25] MEDS ORDERED: PANTOprazole 80 MG in DEXTROSE 5% 100 ML IV STA (15:48)
[2023-02-25 15:50] LABS: Polychromasia 1+
[2023-02-25] MEDS ORDERED: POTASSIUM CHLORIDE / WTR 10 MEQ/100 ML PLCT IV ONE (15:52)
--- NOTE | 2023-02-25 16:00 | Emergency Department Note ---
Impression & Plan Weakness, Hypokalemia, Acute GI bleeding, Anemia, Acute hyperglycemia, BLAIRE (acute kidney injury) ED Provider Note NAME: DESIREE VÁSQUEZ AGE: 62 SEX: F : 1960 ARRIVES VIA: Walk-In INFORMANT: [Patient] ED PROVIDER(S): [Felipe Albarado MD] CHIEF COMPLAINT: Illness HISTORY OF PRESENT ILLNESS: The patient is a 62-year-old female who presents with weakness, fatigue and what she calls a brain fog. The patient did report for paracentesis today as scheduled however, there was not enough fluid to have the procedure. There has been no cough or congestion. No chest pain or abdominal pain. No one-sided weakness. No black stool noted. No urinary complaints. Of note, the patient does take Eliquis, she is on this for pulmonary emboli. PMHx/PSHx: See Below SOCIAL HISTORY: See Below. PHYSICAL EXAM: GENERAL: Patient is in no acute distress. HEENT: No acute trauma, normocephalic atraumatic, mucous membranes moist, no nasal congestion. NECK: No stridor, no adenopathy, no meningismus, trachea is midline. LUNGS: Clear to auscultation bilaterally, no wheeze, no rhonchi, breath sounds equal. HEART: 2/6 systolic murmur, regular rate and rhythm. ABDOMEN: Soft, nontender, bowel sounds positive, no peritonitis. EXTREMITIES: No cyanosis or edema, full range of motion of all the joints without pain or difficulty, no signs for acute trauma. NEUROLOGIC: Oriented x 3, no acute motor or sensory deficits, no focal weakness. SKIN: No rash, no jaundice, no diaphoresis. Pale. Rectal: Dark stool but not black. Heme positive. DIFFERENTIAL DIAGNOSIS: Upper GI bleed, lower GI bleed, dehydration, electrolyte imbalance, UTI, anemia, renal or liver failure, among others. EMERGENCY DEPARTMENT COURSE/PROCEDURES: Prior/Outside records reviewed: Most recent discharge summary. ECG per my interpretation: Indication was weakness. The ECG shows a sinus rhythm with a first-degree AV block. The rate is 90. There is some nonspecific ST change. No ST elevation, no PVCs. The QTc is 496. Continuous Cardiac Monitoring per my interpretation: An order was placed for continuous cardiac monitoring. The monitor shows a rate of 84 with sinus rhythm with a first-degree block. Critical Care Note: I have personally spent 52 minutes of critical care time in the direct management of this patient. This includes bedside care, interpretation of diagnostic studies, and testing, discussion with consultants, patient, and family members, and other required patient management activities. This 52 minutes is in excess of all separately billable procedures. MEDICAL DECISION MAKING: There is no leukocytosis. The patient is anemic with a hemoglobin of 7.4. This is below her typical baseline. There was a normal platelet count. Renal panel testing does show a lower sodium and lower potassium. There was some acute kidney injury with a creatinine of 1.95. BUN was elevated 85, consistent with potential upper GI bleeding. Glucose was high at 345. No concerning liver enzyme elevation. ECG shows a sinus rhythm with a first-degree AV block, no obvious ischemia. Cardiac enzyme testing x1 was slightly elevated. This cardiac troponin elevation could be secondary to cardiac injury or potentially just mismatch from her anemia and weakness. Urinalysis did not show findings of infection. On exam, the patient did seem somewhat pale. Her stool was quite dark and heme positive. The patient was aggressively managed given all of her findings. She was ordered for blood to be transfused, she did consent to the transfusion and the appropriate paperwork was completed and signed. She was given a 500 cc saline bolus. She was ordered for IV potassium. She was given IV Protonix. She received IV insulin. The patient appears to have a GI bleed. She does have some chemistry issues that will require correction. Admission is needed. I spoke with the patient and case management, the on-call hospitalist was consulted. DISPOSITION: Patient's presentation and findings warrant a hospital stay. Past Med/Surg History Medical History BLAIRE (acute kidney injury) Asthma Diabetes DVT (deep venous thrombosis) Fall Fall Hepatic cirrhosis Left rib fracture Rib fractures UTI (urinary tract infection) Surgical History History of breast biopsy LEFT BREAST History of colonoscopy Hx of cholecystectomy Family History Mother Hypertension Father Hypertension COPD (chronic obstructive pulmonary disease) Social History Smoking Status: Never smoker Second Hand Exposure: No; Do You Dip or Chew Tobacco: No; Hx Alcohol Use: No Hx Substance Use: No Preferred Language: Estonian Communication Ability: Effective Dietitian Required: No Beliefs That Will Affect Care: None marital status: Single Current Living Situation: Parent Current Living Situation Comment: with Mother Other Information That Helps Us Care for You: No Feels Safe at Home: Yes Safety Concerns: Feels Safe At This Time Assistive Devices: Cane, Denture - Lower and Glasses Allergies Allergies Allergy/AdvReac Type Severity Reaction Status Date / Time morphine AdvReac Intermediate Vomiting Verified 02/25/23 16:37 Home Meds Home Medications Medication Instructions Recorded Confirmed albuterol sulfate 90 mcg/actuation 2 puff inhalation QID 01/21/22 02/25/23 aerosol inhaler metformin 500 mg tablet 500 mg PO BIDM 01/21/22 02/25/23 insulin glargine 100 unit/mL (3 10 unit subcut QAM 03/17/22 02/25/23 mL) subcutaneous pen (Lantus Solostar U-100 Insulin) docusate sodium 100 mg capsule 100 mg PO DIRECTED PRN 05/15/22 02/25/23 (Colace) Constipation albuterol sulfate 2.5 mg/3 mL 2.5 mg inhalation DIRECTED PRN 02/25/23 02/25/23 (0.083 %) solution for nebulization Shortness Of Breath Or Wheezing diclofenac sodium 1 % topical gel 2 g topical BID PRN Pain 02/25/23 02/25/23 lisinopril 5 mg tablet 5 mg PO DAILY 02/25/23 02/25/23 methyl salicylate 15 %-menthol 10 1 applic topical BID PRN Pain 02/25/23 02/25/23 % topical cream rosuvastatin 5 mg tablet 5 mg PO DAILY 02/25/23 02/25/23 torsemide 100 mg tablet See Rx Instructions .Route .COMPLEX 02/25/23 02/25/23 tramadol 50 mg tablet 50 mg PO Q6H PRN Pain 02/25/23 02/25/23 Previous Rx's Medication Instructions Recorded apixaban 5 mg tablet (Eliquis) 5 mg PO Q12H #60 tabs 04/14/22 cholecalciferol (vitamin D3) 25 1,000 unit PO QAM #20 caps 04/14/22 mcg (1,000 unit) capsule metolazone 5 mg tablet 5 mg PO QAM #30 tabs 04/14/22 potassium chloride 20 mEq 60 meq PO BID #600 tabs 04/14/22 tablet,extended release(part/cryst) Results & Data (ED) Vital Signs Vital Signs - 24 hr 02/25/23 14:27 02/25/23 15:23 02/25/23 16:30 Temperature 36.5 C Temperature Source Skin Pulse Rate 95 H 91 H Pulse Rate [Apical] 89 Respiratory Rate 18 16 Respiratory Effort / Characteristics Non-Labored Blood Pressure 131/73 Blood Pressure [Right Arm] 133/74 Blood Pressure Mean 92 Blood Pressure Mean [Right Arm] 93 Pulse Oximetry 97 94 Oxygen Delivery Method Room Air Room Air Sepsis Recent Fever Within 48 Hours No Sepsis New/Unexplained Change in Mental Status No Sepsis Action Taken by Nursing No Action Required Home Medications Current Medication List: was personally reviewed by me Laboratory Data Attestation: I reviewed the patient's lab results. 02/25/23 14:38 02/25/23 14:38 Lab Results 02/25/23 02/25/23 02/25/23 Range/Units 14:38 14:38 15:47 WBC 4.84 (4.8-10.8) K/ul RBC 2.57 L (4.20-5.40) M/uL Hgb 7.4 L (12.0-16.0) g/dl Hct 21.2 L (37.0-47.0) % MCV 82.5 (80.0-100.0) fL MCH 28.8 (25.0-34.0) pg MCHC 34.9 (32.0-36.0) g/dL RDW Std Deviation 42.4 (36.4-46.3) fL RDW Coeff of Samy 14.5 (11.5-14.5) % Plt Count 160 (130-400) K/uL MPV 10.0 (9.4-12.4) fL Immature Gran % (Auto) 0.4 % Neut % (Auto) 75.5 % Lymph % (Auto) 16.1 % Hamblen % (Auto) 6.0 % Eos % (Auto) 0.6 % Baso % (Auto) 1.4 % Neut # (Auto) 3.65 (1.40-6.50) K/uL Lymph # (Auto) 0.78 L (1.2-3.4) K/uL Hamblen # (Auto) 0.29 (0.11-0.59) K/uL Eos # (Auto) 0.03 (0-0.50) K/uL Baso # (Auto) 0.07 (0-0.2) K/uL Immature Gran # (Auto) 0.02 (0.01-0.20) K/uL Polychromasia 1+ Sodium 132 L (136-145) mmol/L Potassium 2.6 L (3.5-5.1) mmol/L Chloride 83 L (98-107) mmol/L Carbon Dioxide 36 H (21-32) mmol/L Anion Gap 13 H (3-11) BUN 85 H (6-23) mg/dl Creatinine 1.95 H (0.6-1.2) mg/dl Est Cr Clr Drug Dosing Not Reportable Est GFR ( Amer) 31.6 ml/min Est GFR (Non-Af Amer) 27.3 ml/min BUN/Creatinine Ratio 43.6 H (10-20) Glucose 345 H* (70-99(Fasting)) mg/dl Calcium 9.9 (8.6-10.3) mg/dl Magnesium (1.7-2.4) mg/dl Total Bilirubin 0.8 (0.2-1.0) mg/dl AST 28 (13-39) U/L ALT 21 (7-52) U/L Alkaline Phosphatase 114 H (34-104) U/L Ammonia (18-72) umol/L Troponin I High Sens (0-14) pg/ml Total Protein 8.1 (6.0-8.3) gm/dl Albumin 4.0 (3.4-5.0) gm/dl Globulin 4.1 H (2.5-4.0) gm/dl Albumin/Globulin Ratio 1.0 (0.9-2) Blood Type A Positive Blood Type Recheck Antibody Screen NEGATIVE Crossmatch See Detail 02/25/23 02/25/23 02/25/23 Range/Units 15:47 15:47 16:10 WBC (4.8-10.8) K/ul RBC (4.20-5.40) M/uL Hgb (12.0-16.0) g/dl Hct (37.0-47.0) % MCV (80.0-100.0) fL MCH (25.0-34.0) pg MCHC (32.0-36.0) g/dL RDW Std Deviation (36.4-46.3) fL RDW Coeff of Samy (11.5-14.5) % Plt Count (130-400) K/uL MPV (9.4-12.4) fL Immature Gran % (Auto) % Neut % (Auto) % Lymph % (Auto) % Hamblen % (Auto) % Eos % (Auto) % Baso % (Auto) % Neut # (Auto) (1.40-6.50) K/uL Lymph # (Auto) (1.2-3.4) K/uL Hamblen # (Auto) (0.11-0.59) K/uL Eos # (Auto) (0-0.50) K/uL Baso # (Auto) (0-0.2) K/uL Immature Gran # (Auto) (0.01-0.20) K/uL Polychromasia Sodium (136-145) mmol/L Potassium (3.5-5.1) mmol/L Chloride (98-107) mmol/L Carbon Dioxide (21-32) mmol/L Anion Gap (3-11) BUN (6-23) mg/dl Creatinine (0.6-1.2) mg/dl Est Cr Clr Drug Dosing Est GFR ( Amer) ml/min Est GFR (Non-Af Amer) ml/min BUN/Creatinine Ratio (10-20) Glucose (70-99(Fasting)) mg/dl Calcium (8.6-10.3) mg/dl Magnesium 2.3 (1.7-2.4) mg/dl Total Bilirubin (0.2-1.0) mg/dl AST (13-39) U/L ALT (7-52) U/L Alkaline Phosphatase (34-104) U/L Ammonia 30.0 (18-72) umol/L Troponin I High Sens 18.5 H (0-14) pg/ml Total Protein (6.0-8.3) gm/dl Albumin (3.4-5.0) gm/dl Globulin (2.5-4.0) gm/dl Albumin/Globulin Ratio (0.9-2) Blood Type Blood Type Recheck A Positive Antibody Screen Crossmatch Administered Medications Octreotide Acetate 500 mcg/ (Dextrose) 100.5 mls @ 10.05 mls/hr IV .Q10H LETI Stop: 03/27/23 16:44 Last Admin: 02/25/23 18:34 Dose: 50 mcg/hr, 10.1 mls/hr Documented By: VICKI Pantoprazole Sodium 40 mg/ (Syringe) 10 mls @ 5 mls/min IV BID LETI Stop: 03/27/23 20:59 Last Admin: 02/25/23 20:10 Dose: 5 mls/min Documented By: LLOYD Potassium Chloride/Sodium Chloride (Normal Saline W/20 Meq Kcl) 20 meq in 1,000 mls @ 80 mls/hr IV .[id number] LETI Stop: 03/27/23 18:43 Last Admin: 02/25/23 20:11 Dose: 80 mls/hr Documented By: LLOYD Melatonin (Melatonin 3 Mg Tab) 3 mg PO HS LETI Stop: 03/27/23 20:59 Last Admin: 02/25/23 20:10 Dose: 3 mg Documented By: LLOYD Potassium Chloride (Potassium Chloride Crtab 20 Meq Tabcr) 40 meq PO TID LETI Stop: 03/27/23 20:59 Last Admin: 02/25/23 20:14 Dose: 40 meq Documented By: LLOYD Discontinued Medications Sodium Chloride (Nss 1000ml) 500 mls @ 999 mls/hr IV .Q31M ONE Stop: 02/25/23 16:00 Last Infusion: 02/25/23 18:51 Dose: 0 mls/hr Documented By: Admin: 02/25/23 16:17 Dose: 999 mls/hr Documented By: EULALIO Pantoprazole Sodium 80 mg/ (Dextrose) 120 mls @ 480 mls/hr IV ONE STA Stop: 02/25/23 16:02 Last Infusion: 02/25/23 18:50 Dose: 0 mls/hr Documented By: Admin: 02/25/23 17:07 Dose: 480 mls/hr Documented By: EULALIO Potassium Chloride (K Etienne / Wtr) 10 meq in 100 mls @ 100 mls/hr IV ONE ONE Stop: 02/25/23 16:51 Last Infusion: 02/25/23 18:50 Dose: 0 mls/hr Documented By: Admin: 02/25/23 16:17 Dose: 100 mls/hr Documented By: EULALIO Ceftriaxone Sodium 2,000 mg/ (Dextrose) 70 mls @ 100 mls/hr IV NOW STA; Protocol Stop: 02/25/23 17:27 Last Infusion: 02/25/23 18:37 Dose: 0 mls/hr Documented By: Admin: 02/25/23 17:50 Dose: 100 mls/hr Documented By: EULALIO Insulin Aspart (Insulin Aspart Per Unit Charge) 0 units SC ACHS LETI Stop: 02/25/23 23:59 Last Admin: 02/25/23 21:15 Dose: Not Given Documented By: Admin: 02/25/23 20:11 Dose: 8 units Documented By: LLOYD Co-signed By: VIANEY Insulin Glargine (Lantus Per Unit Charge) 15 units SQ BID [facility] Stop: 03/27/23 18:59 Last Admin: 02/25/23 20:11 Dose: 15 units Documented By: LLOYD Co-signed By: VIANEY Insulin Human Regular (Novolin-R Insulin Per Unit Charge) 10 units IV NOW STA Stop: 02/25/23 15:53 Last Admin: 02/25/23 16:56 Dose: Not Given Documented By: EULALIO Octreotide Acetate (Octreotide Bolus From Bag) 50 mcg IV NOW STA Stop: 02/25/23 16:57 Last Admin: 02/25/23 18:42 Dose: 50 mcg Documented By: VICKI Discharge Plan Visit Data Chief Complaint: Illness Stated Complaint: DOESNT FEEL "WELL",CONFUSED,DIZZY,TIRED, ED Provider: Felipe Albarado Discharge Problem: Weakness, Hypokalemia, Acute GI bleeding, Anemia, Acute hyperglycemia, BLAIRE (acute kidney injury) Patient Disposition: Admitted As Inpatient Condition: Fair Discharge Instructions Interventions: ED Discharge Assessment Last Done: 02/25/23 18:46
[2023-02-25] MEDS: NovoLIN-R INSULIN PER UNIT CHARGE IV STA ×2 (16:18→16:56)
[2023-02-25 16:27] LABS: Magnesium 2.3 mg/dl (1.7-2.4)
[2023-02-25 16:32] LABS: Troponin I High Sensitivity 18.5 pg/ml (0-14)
[2023-02-25] MEDS ORDERED: STAT IV STA (16:37)
[2023-02-25] MEDS ORDERED: OCTREOTIDE ACETATE 50 MCG in SYRINGE 9.5 ML IV STA (16:37)
[2023-02-25] MEDS ORDERED: INSULIN ASPART PER UNIT CHARGE SC STA (16:40)
[2023-02-25] MEDS ORDERED: cefTRIAXone SODIUM 2,000 MG in DEXTROSE 5% 50 ML IV STA (16:46)
[2023-02-25] MEDS ORDERED: OCTREOTIDE BOLUS FROM BAG IV STA (16:56)
--- NOTE | 2023-02-25 17:10 | History & Physical Report ---
Date of Service February 25, 2023 Assessment & Plan (1) Upper GI bleed: (2) 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: Plan: Patient has history of decompensated liver cirrhosis with ascites; obtains paracentesis every 6 weeks. She came to the hospital for routine appointment; abdominal ultrasound showed trace ascites; paracentesis not performed. Patient reported dizziness and generalized weakness for last 2-3 days. Was sent to the ED. Hemoglobin was 7.4; her last hemoglobin was 9.1 in February 15, 2023. BMP reveals creatinine of 1.95; similar to her baseline. BUN elevated compared to baseline at 85. Fecal occult positive in the ED Started on Protonix twice daily. Also started on octreotide drip along with ceftriaxone. Will transfuse 1 unit of packed RBC N.p.o. from midnight for possible EGD in a.m. CBC every 8 hours; transfuse if hemoglobin less than 8 Eliquis kept on hold (3) Hypokalemia: Plan: Potassium found to be 2.6. Also, bicarb elevated to 36; appears chronic. 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 Has been off Eliquis for last 2 days Obtain venous duplex of bilateral lower extremity Continue to hold off on Eliquis till GI bleed is ruled out. Patient will need to be on anticoagulation long-term given history of unprovoked saddle PE (5) Diabetes: Plan: History of type 2 diabetes mellitus On metformin and insulin at home. Stop metformin indefinitely given the lower GFR. Started on Lantus and SSI while inpatient Plan Other conditions; CKD stage III; appears to have progressive CKD on outpatient lab work. Creatinine at baseline. Will consult nephrology in a.m. will probably need titration of the diuretics. Hypertensionrecently started on lisinopril. Contraindicated in setting of decompensated liver cirrhosis. will stop at discharge. Alternative antihypertensive to be used if she becomes hypertensive. Hyperlipidemiacontinue rosuvastatin Time spent evaluating patient, direct bedside care, chart review, placing orders, interpretation of diagnostic studies, discussion with consultants, patient, and family members, as well as other required patient management activities is 88 minutes. Please note the above document was generated using voice recognition software. It may contain grammatical, syntax or spelling errors. Any formal questions or concerns about the content, text or information contained within the body of this dictation should be directly addressed to the provider for clarification History of Present Illness Chief Complaint: Dizziness, weakness for 2 days. Primary Care Provider: Jonathan Rees MD History obtained from chart review and interview with the patient. Past medical history of decompensated liver cirrhosis secondary to JOYCE, CKD stage IIIb, type 2 diabetes mellitus, asthma, DVT/PE on Eliquis Last confinement in March 2022 with decompensated liver cirrhosis/ascites along with pulmonary embolism. Patient has history of decompensated liver cirrhosis with ascites; obtains paracentesis every 6 weeks. She came to the hospital for routine appointment; abdominal ultrasound did not show any ascites. Patient reported dizziness and generalized weakness for last 2-3 days. She also reports pain in her bilateral lower extremities. She denies any fever, chills, chest pain. She reports mild abdominal discomfort. She denies nausea, vomiting. She denies dark stools. She reports compliance with her medication. Her last dose of Eliquis was 2 days ago; was on hold for paracentesis today. In the ED, patient was found to be normotensive, afebrile and saturating well on room air. Hemoglobin was 7.4; her last hemoglobin was 9.1 in February 15, 2023. BMP reveals creatinine of 1.95; similar to her baseline. BUN elevated compared to baseline at 85. Also, potassium of 2.6, corrective sodium of 134. Hemoccult positive in the ED. Type and screen done and patient ordered 1 unit of blood. No recent endoscopy. Past medical history; as above Past surgical history; history of laparoscopic cholecystectomy, last colonoscopy in May 2022 Family history; mother alive with diabetes and hypertension Social history; no history of smoking or alcohol use. Allergies Allergy/AdvReac Type Severity Reaction Status Date / Time morphine AdvReac Intermediate Vomiting Verified 02/25/23 16:37 Home Medications Medication Instructions Recorded Confirmed Type albuterol sulfate 90 mcg/actuation 2 puff inhalation QID 01/21/22 02/25/23 History aerosol inhaler metformin 500 mg tablet 500 mg PO BIDM 01/21/22 02/25/23 History insulin glargine 100 unit/mL (3 10 unit subcut QAM 03/17/22 02/25/23 History mL) subcutaneous pen (Lantus Solostar U-100 Insulin) apixaban 5 mg tablet (Eliquis) 5 mg PO Q12H #60 tabs 04/14/22 02/25/23 Rx cholecalciferol (vitamin D3) 25 1,000 unit PO QAM #20 caps 04/14/22 02/25/23 Rx mcg (1,000 unit) capsule metolazone 5 mg tablet 5 mg PO QAM #30 tabs 04/14/22 02/25/23 Rx potassium chloride 20 mEq 60 meq PO BID #600 tabs 04/14/22 02/25/23 Rx tablet,extended release(part/cryst) docusate sodium 100 mg capsule 100 mg PO DIRECTED PRN 05/15/22 02/25/23 History (Colace) Constipation albuterol sulfate 2.5 mg/3 mL 2.5 mg inhalation DIRECTED PRN 02/25/23 02/25/23 History (0.083 %) solution for nebulization Shortness Of Breath Or Wheezing diclofenac sodium 1 % topical gel 2 g topical BID PRN Pain 02/25/23 02/25/23 History lisinopril 5 mg tablet 5 mg PO DAILY 02/25/23 02/25/23 History methyl salicylate 15 %-menthol 10 1 applic topical BID PRN Pain 02/25/23 02/25/23 History % topical cream rosuvastatin 5 mg tablet 5 mg PO DAILY 02/25/23 02/25/23 History torsemide 100 mg tablet See Rx Instructions .Route .COMPLEX 02/25/23 02/25/23 History tramadol 50 mg tablet 50 mg PO Q6H PRN Pain 02/25/23 02/25/23 History Past Med/Surg History Medical History (Updated 02/25/23 @ 17:01 by Tigre Dow MD) BLAIRE (acute kidney injury) Asthma Diabetes DVT (deep venous thrombosis) Fall Fall Hepatic cirrhosis Left rib fracture Rib fractures UTI (urinary tract infection) Surgical History History of breast biopsy LEFT BREAST History of colonoscopy Hx of cholecystectomy Family History Mother Hypertension Father Hypertension COPD (chronic obstructive pulmonary disease) Social History Smoking Status: Never smoker Second Hand Exposure: No; Do You Dip or Chew Tobacco: No; Hx Alcohol Use: No Hx Substance Use: No Preferred Language: German Communication Ability: Effective Stations Superintendent Required: No Beliefs That Will Affect Care: None marital status: Single Current Living Situation: Family Current Living Situation Comment: with Mother Feels Safe at Home: Yes Assistive Devices: None Review of Systems Review of Systems: All systems reviewed & are unremarkable except as noted in Subjective Physical Exam Physical Exam: Constitutional: Awake, alert orient x3; appears to be in mild discomfort Respiratory: Bilateral vesicular breath sound. Cardiovascular: Regular, systolic murmur heard. Chest: normal inspection of chest Abdomen: Slightly distended, nontender. Bowel sound present. Musculoskeletal: no cyanosis or clubbing, extremities motor strength 5/5. No pitting edema. Skin: no rashes, warm and dry normal turgor Neurologic: PERRL, EOMI, accommodation nl, no face palsy, no dysarthria CN's II- XI intact bilaterally and moves all extremities Psychiatric: A+Ox3, euthymic affect Results & Data Results & Data Vital Signs (Past 12 Hours) Vital Signs Temp Pulse Pulse Resp BP BP Pulse Ox 02/25/23 16:30 89 16 133/74 94 02/25/23 15:23 91 H 02/25/23 14:27 36.5 C 95 H 18 131/73 97 O2 Del Method 02/25/23 16:30 Room Air 02/25/23 15:23 02/25/23 14:27 Room Air Laboratory Results Laboratory Results WBC 4.84 K/ul (4.8-10.8) 02/25/23 14:38 RBC 2.57 M/uL (4.20-5.40) L 02/25/23 14:38 Hgb 7.4 g/dl (12.0-16.0) L 02/25/23 14:38 Hct 21.2 % (37.0-47.0) L 02/25/23 14:38 MCV 82.5 fL (80.0-100.0) 02/25/23 14:38 MCH 28.8 pg (25.0-34.0) 02/25/23 14:38 MCHC 34.9 g/dL (32.0-36.0) 02/25/23 14:38 RDW Std Deviation 42.4 fL (36.4-46.3) 02/25/23 14:38 RDW Coeff of Samy 14.5 % (11.5-14.5) 02/25/23 14:38 Plt Count 160 K/uL (130-400) 02/25/23 14:38 MPV 10.0 fL (9.4-12.4) 02/25/23 14:38 Immature Gran % (Auto) 0.4 % 02/25/23 14:38 Neut % (Auto) 75.5 % 02/25/23 14:38 Lymph % (Auto) 16.1 % 02/25/23 14:38 [place] % (Auto) 6.0 % 02/25/23 14:38 Eos % (Auto) 0.6 % 02/25/23 14:38 Baso % (Auto) 1.4 % 02/25/23 14:38 Neut # (Auto) 3.65 K/uL (1.40-6.50) 02/25/23 14:38 Lymph # (Auto) 0.78 K/uL (1.2-3.4) L 02/25/23 14:38 [place] # (Auto) 0.29 K/uL (0.11-0.59) 02/25/23 14:38 Eos # (Auto) 0.03 K/uL (0-0.50) 02/25/23 14:38 Baso # (Auto) 0.07 K/uL (0-0.2) 02/25/23 14:38 Immature Gran # (Auto) 0.02 K/uL (0.01-0.20) 02/25/23 14:38 Polychromasia 1+ 02/25/23 14:38 Sodium 132 mmol/L (136-145) L 02/25/23 14:38 Potassium 2.6 mmol/L (3.5-5.1) L 02/25/23 14:38 Chloride 83 mmol/L (98-107) L 02/25/23 14:38 Carbon Dioxide 36 mmol/L (21-32) H 02/25/23 14:38 Anion Gap 13 (3-11) H 02/25/23 14:38 BUN 85 mg/dl (6-23) H 02/25/23 14:38 Creatinine 1.95 mg/dl (0.6-1.2) H 02/25/23 14:38 Est Cr Clr Drug Dosing Not Reportable 02/25/23 14:38 Est GFR ( Amer) 31.6 ml/min 02/25/23 14:38 Est GFR (Non-Af Amer) 27.3 ml/min 02/25/23 14:38 BUN/Creatinine Ratio 43.6 (10-20) H 02/25/23 14:38 Glucose 345 mg/dl (70-99(Fasting)) H* 02/25/23 14:38 Calcium 9.9 mg/dl (8.6-10.3) 02/25/23 14:38 Magnesium 2.3 mg/dl (1.7-2.4) 02/25/23 15:47 Total Bilirubin 0.8 mg/dl (0.2-1.0) 02/25/23 14:38 AST 28 U/L (13-39) 02/25/23 14:38 ALT 21 U/L (7-52) 02/25/23 14:38 Alkaline Phosphatase 114 U/L (34-104) H 02/25/23 14:38 Ammonia 30.0 umol/L (18-72) 02/25/23 15:47 Troponin I High Sens 18.5 pg/ml (0-14) H 02/25/23 15:47 Total Protein 8.1 gm/dl (6.0-8.3) 02/25/23 14:38 Albumin 4.0 gm/dl (3.4-5.0) 02/25/23 14:38 Globulin 4.1 gm/dl (2.5-4.0) H 02/25/23 14:38 Albumin/Globulin Ratio 1.0 (0.9-2) 02/25/23 14:38 Blood Type A Positive 02/25/23 15:47 Blood Type Recheck A Positive 02/25/23 16:10 Antibody Screen NEGATIVE 02/25/23 15:47 Crossmatch See Detail 02/25/23 15:47 Code Status & VTE Plan VTE Prophylaxis Plan VTE Prophylaxis will be ordered: Yes Reason for no VTE drug order: Treatment not indicated
[2023-02-25] MEDS: OCTREOTIDE ACETATE 500 MCG in DEXTROSE 5% 100 ML IV SCH (18:34)
[2023-02-25] MEDS ORDERED: DEXTROSE 50% 50 ML SYRINGE IV PRN (18:44)
[2023-02-25] MEDS ORDERED: ALUMINUM/MAGNESIUM SUSP 30 ML UDC PO PRN (18:44)
[2023-02-25] MEDS ORDERED: PHARMACY GLYCEMIC MGMT CONSULT PRN (18:44)
[2023-02-25] MEDS ORDERED: GLUCAGON FOR INJ 1 MG VIAL SQ PRN (18:44)
[2023-02-25] MEDS ORDERED: GLUCOSE 10 TAB/TUBE PO PRN (18:44)
[2023-02-25] MEDS ORDERED: GLUCOSE 40% GEL 15 GM TUBE PO PRN (18:44)
[2023-02-25 18:58] LABS: Appearance Urine Clear (Clear); Bacteria Urine Automated Negative (Negative); Bilirubin Urine Negative (Negative); Blood Urine Trace (Negative); Color Urine Yellow; Glucose Urine UA 2+ (Negative); Ketones Urine Negative (Negative); Leukocyte Esterase Urine Trace (Negative); Nitrite Urine Negative (Negative); Protein Urine Trace (Negative); RBC Urine Automated 0-4 /hpf (0-4); Specific Gravity Urine 1.012 (1.000-1.030); Urobilinogen Urine Negative (Negative)
[2023-02-25] MEDS ORDERED: LANTUS PER UNIT CHARGE SQ SCH (19:00)
[2023-02-25] MEDS: PANTOprazole 40 MG in SYRINGE 0 ML IV SCH (20:10)
[2023-02-25] MEDS: MELATONIN 3 MG TAB PO SCH (20:10)
[2023-02-25] MEDS: INSULIN ASPART PER UNIT CHARGE SC SCH ×2 (20:11→21:15)
[2023-02-25] MEDS: NSS + 20MEQ KCL 20 MEQ/1,000 ML BAG IV SCH (20:11)
[2023-02-25] MEDS: POTASSIUM CHLORIDE CRTAB 20 MEQ TABCR PO SCH (20:14)
--- NOTE | 2023-02-25 21:53 | Ultrasound Report ---
ULTRASOUND BILATERAL LOWER EXTREMITY VENOUS CLINICAL HISTORY: Leg pain. COMPARISON STUDY: Bilateral lower extremity venous ultrasound dated 03/17/2022. TECHNIQUE: Real-time, grayscale, and color Doppler sonography of the deep veins of the right and left lower extremity was performed from the inguinal crease to the calf. Compression and augmentation wer e utilized. FINDINGS: There is no sonographic evidence of deep venous thrombosis identified in the right or left lower extremity. The common femoral, superficial femoral, and popliteal veins are patent and normally compressible bilaterally. The greater saphenous vein and the profunda femoris vein at the junction w ith the common femoral vein are clear in both legs. The visualized calf veins are patent bilaterally. IMPRESSION: There is no sonographic evidence of deep venous thrombosis identified in the right or lef t lower extremity. ACT 112: Negative or not required by law. Electronically signed by: Felipe Aguirre M.D. 02/25/2023 9:51 PM
[2023-02-26] MEDS: ACETAMINOPHEN 325 MG TAB PO PRN ×2 (00:36→23:03)
[2023-02-26] MEDS: INSULIN ASPART PER UNIT CHARGE SC SCH ×6 (00:36→20:45)
[2023-02-26] MEDS: DICLOFENAC SOD 1% GEL 100 GM TUBE EXT PRN (00:37)
[2023-02-26] MEDS: OCTREOTIDE ACETATE 500 MCG in DEXTROSE 5% 100 ML IV SCH ×2 (04:12→13:39)
[2023-02-26 05:52] LABS: Basophils # (auto) 0.06 K/uL (0-0.2); Basophils % (auto) 1.1 %; Eosinophils # (auto) 0.12 K/uL (0-0.50); Eosinophils % (auto) 2.2 %; Hematocrit (blood only) 23.5 % (37.0-47.0); Hemoglobin 8.2 g/dl (12.0-16.0); Immature Granulocytes # (auto) 0.01 K/uL (0.01-0.20); Immature Granulocytes % (auto) 0.2 %; Lymphocytes # (auto) 1.21 K/uL (1.2-3.4); Lymphocytes % (auto) 22.2 %; Mean Corpuscular Hgb Conc 34.9 g/dL (32.0-36.0); Mean Platelet Volume 9.4 fL (9.4-12.4); Monocytes # (auto) 0.44 K/uL (0.11-0.59); Monocytes % (auto) 8.1 %; Neutrophils % (auto) 66.2 %; Platelet Count 161 K/uL (130-400); RDW Coefficient of Variation 14.6 % (11.5-14.5); RDW Standard Deviation 43.5 fL (36.4-46.3); Red Blood Count 2.83 M/uL (4.20-5.40); White Blood Count 5.44 K/ul (4.8-10.8)
[2023-02-26 06:09] LABS: Albumin Level 3.7 gm/dl (3.4-5.0); Bilirubin,Total 0.7 mg/dl (0.2-1.0); Calcium 9.2 mg/dl (8.6-10.3); Creatinine Clr Calc Pharmacy 33.3 ml/min; Est GFR (African American) 31.6 ml/min; Est GFR (Non-African American) 27.3 ml/min; Globulin 3.7 gm/dl (2.5-4.0); Total Protein 7.4 gm/dl (6.0-8.3)
[2023-02-26 08:35] LABS: Estimated Average Glucose 226 mg/dl; Hemoglobin A1C 9.5 % (4.5-5.6)
[2023-02-26] MEDS: PANTOprazole 40 MG in SYRINGE 0 ML IV SCH (09:15)
[2023-02-26] MEDS: ROSUVASTATIN CALCIUM 5 MG TAB PO SCH (09:15)
[2023-02-26] MEDS: NSS + 20MEQ KCL 20 MEQ/1,000 ML BAG IV SCH (09:15)
[2023-02-26] MEDS: POTASSIUM CHLORIDE CRTAB 20 MEQ TABCR PO SCH ×3 (09:15→20:46)
--- NOTE | 2023-02-26 09:44 | Gastrointestinal Consultation ---
Date of Consultation February 26, 2023 Assessment & Plan (1) Anemia: There is limited evidence of a GI bleeding (no gross GI bleeding, only occult + stool), but she has not yet undergone EGD for screening for varices. Plan EGD today by Dr. Alexander. Please continue all meds, correct hypokalemia, keep NPO. Further recommendations to follow EGD. Supervising Physician Co-Signing Physician Notes I have seen and examined the patient with GLENN Bradley whose note reflects our findings and plan. Cirrhotic patient with hemoccult positive stool without melena or hematochezia. EGD planned for this afternoon to evaluate for changes of portal HTN. History of Present Illness Reason for Consultation: Concern for upper GI bleed Requesting Physician: Dr. Dow Attending Physician: Tigre Dow MD History of Present Illness Ms. Saida Giron is a 62-year-old female patient of Dr. Rees with a history of DM-2, obesity, [place] cirrhosis with ascites, followed in clinic by Dr. Mace who presented for scheduled paracentesis yesterday. There was minimal ascites therefore the paracentesis was deferred. However while there she mentioned that she had felt fatigued for 2 or 3 days. She was sent to the ED for evaluation. Hemoglobin there was 8, down from her baseline of 9 on February 15. With hydration hemoglobin decreased to 7.4 she received 1 unit of red blood cells and hemoglobin is now 8.2. Occult stool is positive, but patient denies any red or black bowel movements. She does not have any abdominal pain and has not had any nausea or vomiting. She has not yet undergone an EGD for screening for esophageal varices. She is currently n.p.o. on a Protonix and octreotide drip. She is hemodynamically stable. She is on Eliquis for history of PEs. Her most recent dose was Wednesday evening. Allergies Allergy/AdvReac Type Severity Reaction Status Date / Time morphine AdvReac Intermediate Vomiting Verified 02/26/23 12:24 Home Medications Medication Instructions Recorded Confirmed Type albuterol sulfate 90 mcg/actuation 2 puff inhalation QID 01/21/22 02/25/23 History aerosol inhaler metformin 500 mg tablet 500 mg PO BIDM 01/21/22 02/25/23 History insulin glargine 100 unit/mL (3 10 unit subcut QAM 03/17/22 02/25/23 History mL) subcutaneous pen (Lantus Solostar U-100 Insulin) apixaban 5 mg tablet (Eliquis) 5 mg PO Q12H #60 tabs 04/14/22 02/25/23 Rx cholecalciferol (vitamin D3) 25 1,000 unit PO QAM #20 caps 04/14/22 02/25/23 Rx mcg (1,000 unit) capsule metolazone 5 mg tablet 5 mg PO QAM #30 tabs 04/14/22 02/25/23 Rx potassium chloride 20 mEq 60 meq PO BID #600 tabs 04/14/22 02/25/23 Rx tablet,extended release(part/cryst) docusate sodium 100 mg capsule 100 mg PO DIRECTED PRN 05/15/22 02/25/23 History (Colace) Constipation albuterol sulfate 2.5 mg/3 mL 2.5 mg inhalation DIRECTED PRN 02/25/23 02/25/23 History (0.083 %) solution for nebulization Shortness Of Breath Or Wheezing diclofenac sodium 1 % topical gel 2 g topical BID PRN Pain 02/25/23 02/25/23 History lisinopril 5 mg tablet 5 mg PO DAILY 02/25/23 02/25/23 History methyl salicylate 15 %-menthol 10 1 applic topical BID PRN Pain 02/25/23 02/25/23 History % topical cream rosuvastatin 5 mg tablet 5 mg PO DAILY 02/25/23 02/25/23 History torsemide 100 mg tablet See Rx Instructions .Route .COMPLEX 02/25/23 02/25/23 History tramadol 50 mg tablet 50 mg PO Q6H PRN Pain 02/25/23 02/25/23 History Patient History Medical History BLAIRE (acute kidney injury) Asthma Diabetes DVT (deep venous thrombosis) Fall Fall Hepatic cirrhosis Left rib fracture Rib fractures UTI (urinary tract infection) Surgical History History of breast biopsy LEFT BREAST History of colonoscopy Hx of cholecystectomy Family History Mother Hypertension Father Hypertension COPD (chronic obstructive pulmonary disease) Social History Smoking Status: Never smoker Second Hand Exposure: No; Do You Dip or Chew Tobacco: No; Hx Alcohol Use: No Hx Substance Use: No Preferred Language: Tamazight Communication Ability: Effective Furnace Setter Required: No Beliefs That Will Affect Care: None marital status: Single Current Living Situation: Parent Current Living Situation Comment: with Mother Other Information That Helps Us Care for You: No Feels Safe at Home: Yes Safety Concerns: Feels Safe At This Time Assistive Devices: Cane, Denture - Lower and Glasses Review of Systems Review of Systems: ROS: Gen: + Weakness. No fevers or weight loss Eyes: No eye redness, or pain, no recent vision changes Resp: No SOB, no cough Cardio: No palpitations/irregular beats, no chest pain GI: No abdominal pain, no nausea/vomiting : Denies pain on urination Skin: No jaundice, itching or new rashes M/S: now joint pain or swelling Ext: no edema Physical Exam Constitutional: well developed, well nourished, + ill appearing (chronically), + obese, well groomed and cooperative; no acute distress Eyes: PERRL, conjunctivae normal, anicteric sclerae ENMT: external ear and nose normal, oropharynx normal Neck: trachea midline, no thyromegaly Respiratory: normal respiratory effort, lungs clear to auscultation Cardiovascular: Rate/Rhythm: regular rate and regular rhythm Heart Sounds: no murmur Extremities: + edema (trace bilat lower leg) Gastrointestinal (Abdomen): normal bowel sounds, soft, nontender, no hepatosplenomegaly Musculoskeletal: no cyanosis or clubbing, extremities motor strength 5/5 Skin: no rashes, warm and dry Neurologic: PERRL, EOMI, accommodation nl, no face palsy, no dysarthria Psychiatric: A+Ox3, euthymic affect Lymphatic: no cervical or axillary lymphadenopathy Results & Data Vital Signs (Past 12 Hours) Vital Signs Temp Pulse Pulse Resp BP Pulse Ox O2 Del Method 02/26/23 08:02 36.5 C 68 19 108/70 94 Room Air 02/26/23 02:30 36.6 C 71 16 108/70 95 Room Air 02/25/23 22:04 73 02/25/23 23:56 36.5 C 68 16 96/62 L 97 Room Air Laboratory Results WBC 5.4, Hb 8.2, HCT 23.5, PLT 161, NA 132, K3.0, CL 88, CO2 35, BUN 78, CR 1.95, glucose 128 Ammonia 43 Hb A1c 9.5 Diagnostic Findings VDUS both lower ext: no DVT (1) Anemia Anemia type: unspecified type Qualified Code(s): D64.9 - Anemia, unspecified
--- NOTE | 2023-02-26 10:45 | Nephrology Consultation ---
Date of Consultation February 26, 2023 Assessment & Plan (1) BLAIRE (acute kidney injury): Renal dysfunction is predominantly chronic. I believe patient is very aggressively diuresed and this should be some room to lower the diuretics dose. This might help the kidney function and electrolytes to be somewhat better. I especially want to start metolazone. This drug is very notorious to cause profound hypokalemia as is evident in this patient despite taking 120 mEq of potassium supplement every day. I would continue with torsemide 100 daily with spironolactone 100 daily. She will still need some abdominal paracentesis intermittently Stop lisinopril permanently. In patients with decompensated liver cirrhosis with ascites I do not want them on ISHAN or ARB as they increase the likelihood of acute renal failure and renal dysfunction significantly by worsening the severe prerenal state already caused by liver cirrhosis. Also she should permanently stop metformin given liver cirrhosis and CKD (2) Hypokalemia: Profound hypokalemia despite 120 mEq/day of supplement triggered by metolazone. This is especially problematic significantly more than what we get with loop diuretic. I would recommend to use torsemide 100 daily with spironolactone 100 daily This may cut down the potassium supplements she requires significantly. Would like to follow-up with nephrology after discharge to further titrate the diuretics and electrolytes supple (3) Upper GI bleed: As per GI History of Present Illness Reason for Consultation: Hyponatremia hypokalemia and CKD in the liver cirrhosis patient Attending Physician: Tigre Dow MD History of Present Illness 62-year-old female with known history of liver cirrhosis and other medical problems presented to the hospital yesterday with few days history of weakness fatigue and lightheadedness. She obtains paracentesis every 6 weeks. She came to the hospital yesterday for routine appointment but abdominal ultrasound did not show any ascites.She was sent to the ED for evaluation. Hemoglobin there was 8, down from her baseline of 9 on February 15. With hydration hemoglobin decreased to 7.4 she received 1 unit of red blood cells and hemoglobin is now 8.2. Occult stool is positive, but patient denies any red or black bowel movements. She does not have any abdominal pain and has not had any nausea or vomiting. She has not yet undergone an EGD for screening for esophageal varices. She is currently n.p.o. on a Protonix and octreotide drip. She is hemodynamically stable. Her potassium is also very low. As an outpatient she takes metolazone 5 mg every day with very high potassium supplement of 60 twice a day plus torsemide alternating 100 and 200 daily. She has been compliant with her medication. Kidney function was also abnormal with a creatinine of 1.9 similar to her most recent outpatient blood work. She has history of bilateral PE in March 2022 but for the last few days she has not been on anticoagulation. Review of system-----was mainly progressive fatigue weakness lightheadedness. Otherwise no clear acute symptoms noted. Denies nausea vomiting abdominal pain diarrhea fever chills shortness of breath cough sputum. 12 system reviewed and otherwise negative Allergies Allergy/AdvReac Type Severity Reaction Status Date / Time morphine AdvReac Intermediate Vomiting Verified 02/25/23 16:37 Home Medications Medication Instructions Recorded Confirmed Type albuterol sulfate 90 mcg/actuation 2 puff inhalation QID 01/21/22 02/25/23 History aerosol inhaler metformin 500 mg tablet 500 mg PO BIDM 01/21/22 02/25/23 History insulin glargine 100 unit/mL (3 10 unit subcut QAM 03/17/22 02/25/23 History mL) subcutaneous pen (Lantus Solostar U-100 Insulin) apixaban 5 mg tablet (Eliquis) 5 mg PO Q12H #60 tabs 04/14/22 02/25/23 Rx cholecalciferol (vitamin D3) 25 1,000 unit PO QAM #20 caps 04/14/22 02/25/23 Rx mcg (1,000 unit) capsule metolazone 5 mg tablet 5 mg PO QAM #30 tabs 04/14/22 02/25/23 Rx potassium chloride 20 mEq 60 meq PO BID #600 tabs 04/14/22 02/25/23 Rx tablet,extended release(part/cryst) docusate sodium 100 mg capsule 100 mg PO DIRECTED PRN 05/15/22 02/25/23 History (Colace) Constipation albuterol sulfate 2.5 mg/3 mL 2.5 mg inhalation DIRECTED PRN 02/25/23 02/25/23 History (0.083 %) solution for nebulization Shortness Of Breath Or Wheezing diclofenac sodium 1 % topical gel 2 g topical BID PRN Pain 02/25/23 02/25/23 History lisinopril 5 mg tablet 5 mg PO DAILY 02/25/23 02/25/23 History methyl salicylate 15 %-menthol 10 1 applic topical BID PRN Pain 02/25/23 02/25/23 History % topical cream rosuvastatin 5 mg tablet 5 mg PO DAILY 02/25/23 02/25/23 History torsemide 100 mg tablet See Rx Instructions .Route .COMPLEX 02/25/23 02/25/23 History tramadol 50 mg tablet 50 mg PO Q6H PRN Pain 02/25/23 02/25/23 History Patient History Medical History BLAIRE (acute kidney injury) Asthma Diabetes DVT (deep venous thrombosis) Fall Fall Hepatic cirrhosis Left rib fracture Rib fractures UTI (urinary tract infection) Surgical History History of breast biopsy LEFT BREAST History of colonoscopy Hx of cholecystectomy Family History Mother Hypertension Father Hypertension COPD (chronic obstructive pulmonary disease) Social History Smoking Status: Never smoker Second Hand Exposure: No; Do You Dip or Chew Tobacco: No; Hx Alcohol Use: No Hx Substance Use: No Preferred Language: Turkish Communication Ability: Effective Painter Sign Maintenance Required: No Beliefs That Will Affect Care: None marital status: Single Current Living Situation: Parent Current Living Situation Comment: with Mother Other Information That Helps Us Care for You: No Feels Safe at Home: Yes Safety Concerns: Feels Safe At This Time Assistive Devices: Cane, Denture - Lower and Glasses Physical Exam Physical Exam: Middle-aged white female who looks chronically ill she is pale. No respiratory distress ENMT: Mucous membrane is moist neck is supple no JVD Respiratory: Bilateral clear to auscultation Cardiovascular: S1 and S2 regular no murmur no edema noted Gastrointestinal (Abdomen): Abdomen is soft nontender no ascites noted on clinical exam and no edema Skin: No rash Results & Data Vital Signs (Past 12 Hours) Vital Signs Temp Pulse Resp BP Pulse Ox O2 Del Method 02/26/23 08:02 36.5 C 68 19 108/70 94 Room Air 02/26/23 02:30 36.6 C 71 16 108/70 95 Room Air 02/25/23 23:56 36.5 C 68 16 96/62 L 97 Room Air Laboratory Results Reviewed both outpatient and inpatient Diagnostic Findings Ultrasound reviewed and noted to have no significant ascites
--- NOTE | 2023-02-26 12:08 | Pharmacy Report ---
Pharmacy Glycemic Short Note 2 - Date of Service February 26, 2023 - Glycemic Short BSG Results (Last 24 hours): 02/25/23 02/25/23 02/25/23 14:38 18:00 19:34 Glucose 345 H* POC Glucose 345 H* 337 H* 02/26/23 02/26/23 02/26/23 00:02 05:36 06:01 Glucose 128 H POC Glucose 319 H* 143 H 02/26/23 11:46 Glucose POC Glucose 181 H OUTPATIENT ANTIDIABETIC REGIMEN: * Lantus 10 units daily * metformin 500 mg PO BIDM * HbA1C = 9.5% (02/26/23) ASSESSMENT: * Ms Giron is a 62 y/o F with a PMH of T2DM who presents with a potential GI bleed. She is currently NPO for possible EGD. * Patient's BSGs on presentation in the ER were 345-377 mg/dL. Patient received 15 units of Lantus and 16 units of bolus. * Fasting this morning was 143 mg/dL. Lunch BSG was 181 mg/dL. * With lunch BSG > 180 mg/dL, will given Lantus 10 units today. * Additional Lantus dosing to be determined by dietary status. * Novolog weight-based stress of 2. PLAN FOR INPATIENT GLYCEMIC CONTROL: * Hold outpatient oral diabetes medications * Basal insulin * Lantus 10 units SQ x 1 with subsequent dosing to be determined by diet status * Bolus insulin * NovoLog per scale ACHS or Q6hrs while NPO * Goal Range: Low 110 mg/dL - High 140 mg/dL * Correction Factor: 25 mg/dL/unit * Nutritional / Prandial insulin per carb ratio of 1 unit per 9 grams CHO consumed
[2023-02-26] MEDS ORDERED: LANTUS PER UNIT CHARGE SQ ONE (12:15)
--- NOTE | 2023-02-26 12:35 | Anesthesiology Consultation ---
Date of Service February 26, 2023 Assessment & Plan Chart Review Chart Review: Acceptable Risk for Surgery and Patient NOT seen in Pre Admission Testing History Surgery Operation Date: 02/26/23 16:30 Proposed Procedures p Esophagogastroduodenoscopy Dr Alexander - Laquita Alexander, DO Height/Weight Height: 5 ft 5 in Weight: 86.4 kg Allergies Allergy/AdvReac Type Severity Reaction Status Date / Time morphine AdvReac Intermediate Vomiting Verified 02/26/23 12:24 Medications Home Medications Medication Instructions Recorded Confirmed Last Taken albuterol sulfate 90 mcg/actuation 2 puff inhalation QID 01/21/22 02/25/23 02/25/23 08:00 aerosol inhaler metformin 500 mg tablet 500 mg PO BIDM 01/21/22 02/25/23 02/25/23 08:00 insulin glargine 100 unit/mL (3 10 unit subcut QAM 03/17/22 02/25/23 02/25/23 mL) subcutaneous pen (Lantus 12 UNITS Solostar U-100 Insulin) apixaban 5 mg tablet (Eliquis) 5 mg PO Q12H #60 tabs 04/14/22 02/25/23 02/24/23 cholecalciferol (vitamin D3) 25 1,000 unit PO QAM #20 caps 04/14/22 02/25/23 02/25/23 mcg (1,000 unit) capsule metolazone 5 mg tablet 5 mg PO QAM #30 tabs 04/14/22 02/25/23 02/25/23 potassium chloride 20 mEq 60 meq PO BID #600 tabs 04/14/22 02/25/23 02/25/23 08:00 tablet,extended release(part/cryst) docusate sodium 100 mg capsule 100 mg PO DIRECTED PRN 05/15/22 02/25/23 07/05/22 (Colace) Constipation albuterol sulfate 2.5 mg/3 mL 2.5 mg inhalation DIRECTED PRN 02/25/23 Unknown (0.083 %) solution for nebulization Shortness Of Breath Or Wheezing diclofenac sodium 1 % topical gel 2 g topical BID PRN Pain 02/25/23 02/25/23 Unknown lisinopril 5 mg tablet 5 mg PO DAILY 02/25/23 02/25/23 Unknown methyl salicylate 15 %-menthol 10 1 applic topical BID PRN Pain 02/25/23 02/25/23 Unknown % topical cream rosuvastatin 5 mg tablet 5 mg PO DAILY 02/25/23 02/25/23 02/25/23 torsemide 100 mg tablet See Rx Instructions .Route .COMPLEX 02/25/23 02/25/23 02/25/23 tramadol 50 mg tablet 50 mg PO Q6H PRN Pain 02/25/23 02/25/23 Unknown Active Medications Generic Name Dose Route Start Last Admin Trade Name Freq PRN Reason Stop Dose Admin Acetaminophen 650 mg 02/25/23 18:44 02/26/23 00:36 Acetaminophen 325 Mg Tab PO 03/27/23 18:43 650 mg Q8H PRN Administration Pain or Fever Diclofenac Sodium 2 gm 02/26/23 00:11 02/26/23 00:37 Diclofenac Sod 1% Gel 100 Gm Tube EXT 03/28/23 00:14 2 gm BID PRN Administration Pain Protocol Octreotide Acetate 500 mcg/ 100.5 mls @ 10.05 mls/hr 02/25/23 16:45 02/26/23 04:12 Dextrose IV 03/27/23 16:44 50 mcg/hr .Q10H LTEI 10.1 mls/hr Administration 50 MCG/HR Pantoprazole Sodium 40 mg/ 10 mls @ 5 mls/min 02/25/23 21:00 02/26/23 09:15 Syringe IV 03/27/23 20:59 5 mls/min BID LETI Administration Potassium Chloride/Sodium Chloride 20 meq in 1,000 mls @ 80 mls/hr 02/25/23 18:44 02/26/23 09:15 Normal Saline W/20 Meq Kcl IV 03/27/23 18:43 80 mls/hr .[id number] LETI Administration Insulin Aspart 0 units 02/26/23 00:00 02/26/23 06:23 Insulin Aspart Per Unit Charge SC 03/28/23 00:00 1 units Q6 LETI Administration Melatonin 3 mg 02/25/23 21:00 02/25/23 20:10 Melatonin 3 Mg Tab PO 03/27/23 20:59 3 mg HS LETI Administration Potassium Chloride 40 meq 02/25/23 21:00 02/26/23 09:15 Potassium Chloride Crtab 20 Meq Tabcr PO 03/27/23 20:59 40 meq TID LETI Administration Rosuvastatin Calcium 5 mg 02/26/23 09:00 02/26/23 09:15 Rosuvastatin Calcium 5 Mg Tab PO 03/28/23 08:59 5 mg DAILY LETI Administration NPO Date Last Intake of Fluids: 02/26/23 Time Last Intake of Fluids: 09:15 Date Last Intake of Solids: 02/24/23 Time Last Intake of Solids: 17:00 Past Medical History Medical History BLAIRE (acute kidney injury) Asthma Diabetes DVT (deep venous thrombosis) Fall Fall Hepatic cirrhosis Left rib fracture Rib fractures UTI (urinary tract infection) Past Family History Family History Mother Hypertension Father Hypertension COPD (chronic obstructive pulmonary disease) Past Surgical History Surgical History History of breast biopsy LEFT BREAST History of colonoscopy Hx of cholecystectomy Social History Smoking Status: Never smoker Do You Dip or Chew Tobacco: No Hx Alcohol Use: No Hx Substance Use: No substance use type: does not use Physical Exam Vital Signs Last Vital Signs Temp 36.2 C L 02/26/23 12:25 Pulse 77 02/26/23 12:25 Resp 18 02/26/23 12:25 BP 129/66 02/26/23 12:25 Pulse Ox 97 02/26/23 12:25 O2 Del Method Room Air 02/26/23 12:25 Testing Laboratory Results 02/26/23 05:36 02/26/23 05:36 Hemoglobin A1c 9.5 % (4.5-5.6) H 02/26/23 05:36 Urine Color Yellow 02/25/23 18:38 Urine Appearance Clear (Clear) 02/25/23 18:38 Urine pH 7.0 (4.5-7.5) 02/25/23 18:38 Ur Specific [place] 1.012 (1.000-1.030) 02/25/23 18:38 Urine Protein Trace (Negative) H 02/25/23 18:38 Urine Glucose (UA) 2+ (Negative) H 02/25/23 18:38 Urine Ketones Negative (Negative) 02/25/23 18:38 Urine Nitrite Negative (Negative) 02/25/23 18:38 Ur Leukocyte Esterase Trace (Negative) H 02/25/23 18:38 Urine WBC (Auto) 1-5 /hpf (0-5) 02/25/23 18:38 Urine RBC (Auto) 0-4 /hpf (0-4) 02/25/23 18:38 U Hyaline Cast (Auto) 1-5 /lpf (0-5) 02/25/23 18:38 U Epithel Cells (Auto) 5-10 /lpf (0-5) H 02/25/23 18:38 Urine Bacteria (Auto) Negative (Negative) 02/25/23 18:38 Blood Type A Positive 02/25/23 15:47 Antibody Screen NEGATIVE 02/25/23 15:47 02/26/23 02/26/23 11:46 06:01 POC Glucose 181 H 143 H
[2023-02-26] MEDS ORDERED: PROPOFOL IV EMULSION 10 MG/ML 20 ML VIAL IV ONE (12:45)
[2023-02-26] MEDS ORDERED: LIDOCAINE 2% 2 ML VIAL/AMP(20MG/ML) INFIL ONE (12:45)
--- NOTE | 2023-02-26 13:06 | GI REPORT ---
Patient Name: Saida Giron Procedure Date: 02/26/2023 12:45 PM Date of : 1960 Admit Type: Inpatient Age: 62 Gender: Female Attending MD: Laquita Alexander DO, Procedure: Upper GI endoscopy Providers: Laquita Alexander DO Referring MD: Tigre Dow Md Indications: Generalized abdominal pain, Cirrhosis rule out esophageal varices Medicines: Propofol per Anesthesia Complications: No immediate complications. Estimated blood loss: Minimal. Estimated Blood Loss: Estimated blood loss was minimal. Procedure: Pre-Anesthesia Assessment: - Prior to the procedure, a History and Physical was performed, and patient medications, allergies and sensitivities were reviewed. The patient's tolerance of previous anesthesia was reviewed. - The risks and benefits of the procedure and the sedation options and risks were discussed with the patient. All questions were answered and informed consent was obtained. - Patient identification and proposed procedure were verified prior to the procedure by the physician and the nurse. The procedure was verified in the pre-procedure area in the procedure room. - Mental Status Examination: alert and oriented. Airway Examination: normal oropharyngeal airway and neck mobility. Respiratory Examination: clear to auscultation. CV Examination: normal. Abdominal Examination: bowel sounds present, abdomen soft and non-tender, no masses or organomegaly noted. - ASA Grade Assessment: III - A patient with severe systemic disease. After obtaining informed consent, the endoscope was passed under direct vision. Throughout the procedure, the patient's blood pressure, pulse, and oxygen saturations were monitored continuously. The Endoscope was introduced through the mouth, and advanced to the second part of duodenum. The upper GI endoscopy was accomplished without difficulty. The patient tolerated the procedure well. Findings: The esophagus was normal. Mild portal hypertensive gastropathy was found in the entire examined stomach. Four non-bleeding superficial gastric ulcers with no stigmata of bleeding were found in the gastric antrum. Biopsies were taken with a cold forceps for Helicobacter pylori testing. Verification of patient identification for the specimen was done by the physician and nurse using the patient's name and date. Estimated blood loss was minimal. The examined duodenum was normal. Impression: - Normal esophagus. - Portal hypertensive gastropathy. - Non-bleeding gastric ulcers with no stigmata of bleeding. Biopsied. - Normal examined duodenum. Recommendation: - Await pathology results. - Follow an antireflux regimen. - Use a proton pump inhibitor PO BID for 3 months then once a day thereafter. - No ibuprofen, naproxen, or other non-steroidal anti-inflammatory drugs. - [facility]. Laquita Alexander D.O. Laquita Alexander, 02/26/2023 1:06:27 PM This report has been signed electronically. Note Initiated On: 02/26/2023 12:45 PM Number of Addenda: 0 I attest to the content of the Intraoperative Record and orders documented therein, exceptions below {[id number]}
--- NOTE | 2023-02-26 13:08 | Anesthesiology Progress Note ---
Date of Service February 26, 2023 Anesthesia Post Procedure Vital Signs Vital Signs: Temp Pulse Pulse Pulse Resp BP BP 02/26/23 12:25 36.2 C L 77 18 129/66 02/26/23 12:05 36.5 C 75 18 124/77 02/26/23 10:47 68 02/26/23 08:02 36.5 C 68 19 108/70 02/25/23 20:00 02/26/23 02:30 36.6 C 71 16 108/70 02/25/23 22:04 73 02/25/23 18:47 86 02/25/23 23:56 36.5 C 68 16 96/62 L 02/25/23 20:30 36.3 C L 84 18 131/78 02/25/23 19:25 36.4 C 84 16 127/80 02/25/23 18:44 02/25/23 18:46 37 C 90 16 114/79 02/25/23 17:25 36.5 C 88 17 152/87 H 02/25/23 18:00 37 C 90 16 163/79 H 02/25/23 17:40 37.2 C 90 13 163/79 H 02/25/23 16:30 89 16 133/74 02/25/23 15:23 91 H 02/25/23 14:27 36.5 C 95 H 18 131/73 Pulse Ox Pulse Ox O2 Del Method O2 Del Method 02/26/23 12:25 97 Room Air 02/26/23 12:05 97 Room Air 02/26/23 10:47 02/26/23 08:02 94 Room Air 02/25/23 20:00 Room Air 02/26/23 02:30 95 Room Air 02/25/23 22:04 02/25/23 18:47 02/25/23 23:56 97 Room Air 02/25/23 20:30 95 02/25/23 19:25 02/25/23 18:44 92 Room Air 02/25/23 18:46 95 Room Air 02/25/23 17:25 95 02/25/23 18:00 95 02/25/23 17:40 96 02/25/23 16:30 94 Room Air 02/25/23 15:23 02/25/23 14:27 97 Room Air Pain Intensity Bilateral Leg: Pain Intensity: 3 Transfer of Care Handoff Completed per policy Notes Mental Status: alert / awake / arousable and participated in evaluation Patient Amnestic to Procedure: Yes Nausea / Vomiting: adequately controlled Pain: adequately controlled Airway Patency, RR, SpO2: stable & adequate BP & HR: stable & adequate Hydration State: stable & adequate Anesthetic Complications: no major complications apparent and Pt Satisfied with anesthetic care
[2023-02-26] MEDS ORDERED: Nursing to Pharmacy Communication SCH (13:45)
[2023-02-26] MEDS ORDERED: INSULIN ASPART PER UNIT CHARGE ONE (14:12)
--- NOTE | 2023-02-26 15:22 | Hospitalist Progress Note ---
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 She came to the hospital for routine appointment; abdominal ultrasound showed trace ascites; paracentesis not performed. Patient reported dizziness and generalized weakness for last 2-3 days. Was sent to the ED. Hemoglobin was 7.4; her last hemoglobin was 9.1 in February 15, 2023. BMP reveals creatinine of 1.95; similar to her baseline. BUN elevated compared to baseline at 85. Fecal occult positive in the ED Status post 1 unit of packed RBC transfusion. Underwent endoscopy on February 25, 2023. Normal esophagus. Portal hypertensive gastropathy. Non-bleeding gastric ulcers with no stigmata of bleeding. Biopsied. Normal examined duodenum. Will discontinue octreotide drip. Started on PPI p.o. twice daily for 3 months. Discussed with GI regarding resumption of Eliquis. Okay to be restarted tomorrow (3) Hypokalemia: Plan: Potassium found to be 2.6 on admission. Also, bicarb elevated to 36; appears chronic. Hypokalemia likely due to torsemide/metolazone Continue on on potassium 40 mEq 3 times daily Repeat BMP tomorrow (4) Saddle pulmonary embolus: Plan: 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 Has been off Eliquis for last 2 days Venous duplex bilateral lower extremity negative for DVT. Will resume Eliquis from tomorrow as per GI. (5) Diabetes: Plan: History of type 2 diabetes mellitus On metformin and insulin at home. Stop metformin indefinitely given the lower GFR. Started on Lantus and SSI while inpatient Plan Other conditions; CKD stage III; appears to have progressive CKD on outpatient lab work. Creatinine at baseline. Recommended to continue torsemide 100 mg daily with spironolactone 100 mg daily. Stop metolazone and lisinopril permanently. Hypertensionrecently started on lisinopril. Contraindicated in setting of decompensated liver cirrhosis. will stop at discharge. Alternative antihypertensive to be used if she becomes hypertensive. Hyperlipidemiacontinue rosuvastatin Time spent evaluating patient, direct bedside care, chart review, placing orders, interpretation of diagnostic studies, discussion with consultants, patient, and family members, as well as other required patient management activities is 60 minutes. Please note the above document was generated using voice recognition software. It may contain grammatical, syntax or spelling errors. Any formal questions or concerns about the content, text or information contained within the body of this dictation should be directly addressed to the provider for clarification Admission and Anticipated Discharge Date Admission Date: February 25, 2023 Subjective Patient seen and examined at bedside. Reports restless leg Denies nausea vomiting. Appears comfortable. Review of Systems Review of Systems: All systems reviewed & are unremarkable except as noted in Subjective Physical Exam Physical Exam: Constitutional: Awake, alert orient x3; appears to be in mild discomfort Respiratory: Bilateral vesicular breath sound. Cardiovascular: Regular, systolic murmur heard. Chest: normal inspection of chest Abdomen: Slightly distended, nontender. Bowel sound present. Musculoskeletal: no cyanosis or clubbing, extremities motor strength 5/5. No pitting edema. Skin: no rashes, warm and dry normal turgor Neurologic: PERRL, EOMI, accommodation nl, no face palsy, no dysarthria CN's II- XI intact bilaterally and moves all extremities Psychiatric: A+Ox3, euthymic affect Results & Data Results & Data Vital Signs (Past 12 Hours) Vital Signs Temp Pulse Pulse Pulse Resp BP Pulse Ox 02/26/23 13:36 75 18 125/65 95 02/26/23 13:21 74 18 119/62 96 02/26/23 13:06 65 18 86/41 L 98 02/26/23 12:25 36.2 C L 77 18 129/66 97 02/26/23 12:05 36.5 C 75 18 124/77 97 02/26/23 10:47 68 02/26/23 08:02 36.5 C 68 19 108/70 94 O2 Del Method 02/26/23 13:36 Room Air 02/26/23 13:21 Room Air 02/26/23 13:06 Room Air 02/26/23 12:25 Room Air 02/26/23 12:05 Room Air 02/26/23 10:47 02/26/23 08:02 Room Air Laboratory Results Laboratory Results WBC 5.44 K/ul (4.8-10.8) 02/26/23 05:36 RBC 2.83 M/uL (4.20-5.40) L 02/26/23 05:36 Hgb 8.2 g/dl (12.0-16.0) L 02/26/23 05:36 Hct 23.5 % (37.0-47.0) L 02/26/23 05:36 MCV 83.0 fL (80.0-100.0) 02/26/23 05:36 MCH 29.0 pg (25.0-34.0) 02/26/23 05:36 MCHC 34.9 g/dL (32.0-36.0) 02/26/23 05:36 RDW Std Deviation 43.5 fL (36.4-46.3) 02/26/23 05:36 RDW Coeff of Samy 14.6 % (11.5-14.5) H 02/26/23 05:36 Plt Count 161 K/uL (130-400) 02/26/23 05:36 MPV 9.4 fL (9.4-12.4) 02/26/23 05:36 Immature Gran % (Auto) 0.2 % 02/26/23 05:36 Neut % (Auto) 66.2 % 02/26/23 05:36 Lymph % (Auto) 22.2 % 02/26/23 05:36 [place] % (Auto) 8.1 % 02/26/23 05:36 Eos % (Auto) 2.2 % 02/26/23 05:36 Baso % (Auto) 1.1 % 02/26/23 05:36 Neut # (Auto) 3.60 K/uL (1.40-6.50) 02/26/23 05:36 Lymph # (Auto) 1.21 K/uL (1.2-3.4) 02/26/23 05:36 [place] # (Auto) 0.44 K/uL (0.11-0.59) 02/26/23 05:36 Eos # (Auto) 0.12 K/uL (0-0.50) 02/26/23 05:36 Baso # (Auto) 0.06 K/uL (0-0.2) 02/26/23 05:36 Immature Gran # (Auto) 0.01 K/uL (0.01-0.20) 02/26/23 05:36 Polychromasia 1+ 02/25/23 14:38 Sodium 132 mmol/L (136-145) L 02/26/23 05:36 Potassium 3.0 mmol/L (3.5-5.1) L 02/26/23 05:36 Chloride 88 mmol/L (98-107) L 02/26/23 05:36 Carbon Dioxide 35 mmol/L (21-32) H 02/26/23 05:36 Anion Gap 9 (3-11) 02/26/23 05:36 BUN 78 mg/dl (6-23) H 02/26/23 05:36 Creatinine 1.95 mg/dl (0.6-1.2) H 02/26/23 05:36 Est Cr Clr Drug Dosing 33.3 ml/min 02/26/23 05:36 Est GFR ( Amer) 31.6 ml/min 02/26/23 05:36 Est GFR (Non-Af Amer) 27.3 ml/min 02/26/23 05:36 BUN/Creatinine Ratio 40.0 (10-20) H 02/26/23 05:36 Glucose 128 mg/dl (70-99(Fasting)) H 02/26/23 05:36 POC Glucose 181 mg/dl (70-99) H 02/26/23 11:46 Estimat Average Glucose 226 mg/dl 02/26/23 05:36 Hemoglobin A1c 9.5 % (4.5-5.6) H 02/26/23 05:36 Calcium 9.2 mg/dl (8.6-10.3) 02/26/23 05:36 Magnesium 2.3 mg/dl (1.7-2.4) 02/25/23 15:47 Total Bilirubin 0.7 mg/dl (0.2-1.0) 02/26/23 05:36 AST 27 U/L (13-39) 02/26/23 05:36 ALT 19 U/L (7-52) 02/26/23 05:36 Alkaline Phosphatase 105 U/L (34-104) H 02/26/23 05:36 Ammonia 43.0 umol/L (18-72) 02/26/23 05:36 Troponin I High Sens 18.5 pg/ml (0-14) H 02/25/23 15:47 Total Protein 7.4 gm/dl (6.0-8.3) 02/26/23 05:36 Albumin 3.7 gm/dl (3.4-5.0) 02/26/23 05:36 Globulin 3.7 gm/dl (2.5-4.0) 02/26/23 05:36 Albumin/Globulin Ratio 1.0 (0.9-2) 02/26/23 05:36 Urine Color Yellow 02/25/23 18:38 Urine Appearance Clear (Clear) 02/25/23 18:38 Urine pH 7.0 (4.5-7.5) 02/25/23 18:38 Ur Specific [place] 1.012 (1.000-1.030) 02/25/23 18:38 Urine Protein Trace (Negative) H 02/25/23 18:38 Urine Glucose (UA) 2+ (Negative) H 02/25/23 18:38 Urine Ketones Negative (Negative) 02/25/23 18:38 Urine Blood Trace (Negative) H 02/25/23 18:38 Urine Nitrite Negative (Negative) 02/25/23 18:38 Urine Bilirubin Negative (Negative) 02/25/23 18:38 Urine Urobilinogen Negative (Negative) 02/25/23 18:38 Ur Leukocyte Esterase Trace (Negative) H 02/25/23 18:38 Urine WBC (Auto) 1-5 /hpf (0-5) 02/25/23 18:38 Urine RBC (Auto) 0-4 /hpf (0-4) 02/25/23 18:38 U Hyaline Cast (Auto) 1-5 /lpf (0-5) 02/25/23 18:38 U Epithel Cells (Auto) 5-10 /lpf (0-5) H 02/25/23 18:38 Urine Bacteria (Auto) Negative (Negative) 02/25/23 18:38 Blood Type A Positive 02/25/23 15:47 Blood Type Recheck A Positive 02/25/23 16:10 Antibody Screen NEGATIVE 02/25/23 15:47 Crossmatch See Detail 02/25/23 15:47 Impressions Venous Doppler Study 02/25/23 16:49 ULTRASOUND BILATERAL LOWER EXTREMITY VENOUS CLINICAL HISTORY: Leg pain. COMPARISON STUDY: Bilateral lower extremity venous ultrasound dated 03/17/2022. TECHNIQUE: Real-time, grayscale, and color Doppler sonography of the deep veins of the right and left lower extremity was performed from the inguinal crease to the calf. Compression and augmentation were utilized. FINDINGS: There is no sonographic evidence of deep venous thrombosis identified in the right or left lower extremity. The common femoral, superficial femoral, and popliteal veins are patent and normally compressible bilaterally. The greater saphenous vein and the profunda femoris vein at the junction with the common femoral vein are clear in both legs. The visualized calf veins are patent bilaterally. IMPRESSION: There is no sonographic evidence of deep venous thrombosis identified in the right or left lower extremity. ACT 112: Negative or not required by law. Electronically signed by: Felipe Aguirre M.D. 02/25/2023 9:51 PM
[2023-02-26] MEDS ORDERED: cefTRIAXone SODIUM 2,000 MG in DEXTROSE 5% 50 ML IV SCH (18:00)
[2023-02-26] MEDS: PANTOprazole 40 MG TAB PO SCH (20:45)
[2023-02-26] MEDS: MELATONIN 3 MG TAB PO SCH (20:46)
[2023-02-26] MEDS: rOPINIRole HCL 0.25 MG TABLET PO SCH (20:46)
--- NOTE | 2023-02-26 23:11 | Electrocardiogram Report ---
Test Reason : Blood Pressure : / mmHG Vent. Rate : 090 BPM Atrial Rate : 090 BPM P-R Int : 216 ms QRS Dur : 090 ms QT Int : 406 ms P-R-T Axes : 033 067 021 degrees QTc Int : 496 ms Sinus rhythm with 1st degree A-V block Nonspecific ST abnormality Prolonged QT Abnormal ECG When compared with ECG of 25-MAR-2022 10:18, MA interval has increased QT has lengthened QT has lengthened Confirmed by Kong Armstrong ([id number]) on 02/26/2023 11:10:32 PM Referred By: REFERRED SELF Confirmed By:Kong Armstrong
[2023-02-27 06:02] LABS: Basophils # (auto) 0.06 K/uL (0-0.2); Basophils % (auto) 1.1 %; Eosinophils # (auto) 0.12 K/uL (0-0.50); Eosinophils % (auto) 2.3 %; Hematocrit (blood only) 22.8 % (37.0-47.0); Hemoglobin 7.7 g/dl (12.0-16.0); Immature Granulocytes # (auto) 0.03 K/uL (0.01-0.20); Immature Granulocytes % (auto) 0.6 %; Lymphocytes # (auto) 1.17 K/uL (1.2-3.4); Lymphocytes % (auto) 22.2 %; Mean Corpuscular Hemoglobin 28.4 pg (25.0-34.0); Mean Corpuscular Hgb Conc 33.8 g/dL (32.0-36.0); Mean Corpuscular Volume 84.1 fL (80.0-100.0); Mean Platelet Volume 9.6 fL (9.4-12.4); Monocytes # (auto) 0.49 K/uL (0.11-0.59); Monocytes % (auto) 9.3 %; Neutrophils # (auto) 3.41 K/uL (1.40-6.50); Neutrophils % (auto) 64.5 %; Platelet Count 163 K/uL (130-400); RDW Coefficient of Variation 14.8 % (11.5-14.5); RDW Standard Deviation 45.1 fL (36.4-46.3); Red Blood Count 2.71 M/uL (4.20-5.40); White Blood Count 5.28 K/ul (4.8-10.8)
[2023-02-27 06:06] LABS: Albumin Globulin Ratio 0.9 (0.9-2); Albumin Level 3.1 gm/dl (3.4-5.0); BUN Creatinine Ratio 33.7 (10-20); Bilirubin,Total 0.7 mg/dl (0.2-1.0); Calcium 8.6 mg/dl (8.6-10.3); Creatinine Clr Calc Pharmacy 31.7 ml/min; Est GFR (African American) 29.8 ml/min; Est GFR (Non-African American) 25.7 ml/min; Globulin 3.3 gm/dl (2.5-4.0); Potassium 3.8 mmol/L (3.5-5.1); Total Protein 6.4 gm/dl (6.0-8.3)
[2023-02-27 06:44] LABS: Polychromasia 1+
[2023-02-27] MEDS: INSULIN ASPART PER UNIT CHARGE SC SCH ×4 (08:33→20:18)
[2023-02-27] MEDS: ROSUVASTATIN CALCIUM 5 MG TAB PO SCH (08:34)
[2023-02-27] MEDS: LANTUS PER UNIT CHARGE SQ SCH (08:34)
[2023-02-27] MEDS: TORSEMIDE 100 MG TAB PO SCH (09:31)
[2023-02-27] MEDS: APIXABAN 5 MG TABLET PO SCH ×2 (09:31→20:00)
[2023-02-27] MEDS: ACETAMINOPHEN 325 MG TAB PO PRN (09:31)
[2023-02-27] MEDS: SPIRONOLACTONE 100 MG TAB PO SCH (09:31)
[2023-02-27] MEDS: PANTOprazole 40 MG TAB PO SCH ×2 (09:50→20:00)
--- NOTE | 2023-02-27 10:28 | Nephrology Progress Note ---
Date of Service February 27, 2023 Assessment & Plan (1) BLAIRE (acute kidney injury): Plan: Renal dysfunction is predominantly chronic. I believe patient is very aggressi vely diuresed and this should be some room to lower the diuretics dose. This might help the kidney function and electrolytes to be somewhat better. Creatinine still uptrending to 2 today. -I would continue with torsemide 100 daily with spironolactone 100 daily. -She will still need some abdominal paracentesis intermittently -Stop lisinopril and metformin going forward. (2) Hypokalemia: Plan: Profound hypokalemia despite 120 mEq/day of supplement triggered by metolazone. This is especially problematic significantly more than what we get with loop diuretic. I would recommend to use torsemide 100 daily with spironolactone 100 daily This may cut down the potassium supplements she requires significantly. Would like to follow-up with nephrology after discharge to further titrate the diuretics and electrolytes supple Admission and Anticipated Discharge Date Admission Date: February 26, 2023 Subjective Seen for acute kidney injury and electrolyte imbalance. She feels better today. No shortness of breath, no nausea or vomiting. Creatinine still uptrending to 2. Review of Systems Review of Systems: All other systems were reviewed and negative except as noted in HPI Physical Exam Physical Exam: General exam: Appears comfortable, no acute distress HEENT: Pupils are equal and reactive to light Neck: No JVD, neck is supple trachea is midline Respiratory system: Clear breath sounds bilaterally. Gastrointestinal: Abdomen is soft, non distended, non tender, bowel sounds are present CVS: Regular rate and rhythm. No murmurs, rubs or gallops Musculoskeletal: No joint or muscle tenderness Extremities: Non tender, no edema, peripheral pulses are present Neuro: Oriented, no tremors, no focal neurological deficits Skin: No rashes Results & Data Vital Signs (Past 12 Hours) Vital Signs Temp Pulse Pulse Resp BP BP Pulse Ox 02/27/23 08:00 69 02/27/23 07:56 36.9 C 68 16 109/69 98 02/27/23 03:21 36.5 C 64 18 99/64 L 98 02/26/23 22:58 36.5 C 73 16 109/71 97 02/26/23 22:54 71 O2 Del Method 02/27/23 08:00 02/27/23 07:56 Room Air 02/27/23 03:21 Room Air 02/26/23 22:58 Room Air 02/26/23 22:54 Laboratory Results 02/27/23 05:25 02/27/23 02/27/23 05:25 05:25 WBC 5.28 RBC 2.71 L MCV 84.1 MCH 28.4 MCHC 33.8 RDW Std Deviation 45.1 RDW Coeff of Samy 14.8 H Plt Count 163 MPV 9.6 Albumin 3.1 L
--- NOTE | 2023-02-27 13:18 | Hospitalist Progress Note ---
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 She came to the hospital for routine appointment; abdominal ultrasound showed trace ascites; paracentesis not performed. Patient reported dizziness and generalized weakness for last 2-3 days. Was sent to the ED. Hemoglobin was 7.4; her last hemoglobin was 9.1 in February 15, 2023. On admission BMP reveals creatinine of 1.95; similar to her baseline. BUN elevated compared to baseline at 85. Fecal occult positive in the ED Status post 1 unit of packed RBC transfusion. Today's hemoglobin is 7.7. Underwent endoscopy on February 25, 2023. Normal esophagus. Portal hypertensive gastropathy. Non-bleeding gastric ulcers with no stigmata of bleeding. Biopsied. Normal examined duodenum. Started on PPI p.o. twice daily for 3 months. Discussed with GI regarding resumption of Eliquis. Started today. Monitor CBC tomorrow (3) Hypokalemia: Plan: Potassium found to be 2.6 on admission. Also, bicarb elevated to 36; appears chronic. Hypokalemia likely due to torsemide/metolazone Started on torsemide and spironolactone. (4) Saddle pulmonary embolus: Plan: 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 Has been off Eliquis for last 2 days Venous duplex bilateral lower extremity negative for DVT. Eliquis resumed. (5) Diabetes: Plan: History of type 2 diabetes mellitus On metformin and insulin at home. Stop metformin indefinitely given the lower GFR. Started on Lantus and SSI while inpatient can consider Jardiance as outpatient. Plan Other conditions; CKD stage III; appears to have progressive CKD on outpatient lab work. Creatinine at baseline. Recommended to continue torsemide 100 mg daily with spironolactone 100 mg daily. Stop metolazone and lisinopril permanently. Hypertensionrecently started on lisinopril. Contraindicated in setting of decompensated liver cirrhosis. will stop at discharge. Alternative antihypertensive to be used if she becomes hypertensive. Hyperlipidemiacontinue rosuvastatin Time spent evaluating patient, direct bedside care, chart review, placing orders, interpretation of diagnostic studies, discussion with consultants, patient, and family members, as well as other required patient management activities is 60 minutes. Please note the above document was generated using voice recognition software. It may contain grammatical, syntax or spelling errors. Any formal questions or concerns about the content, text or information contained within the body of this dictation should be directly addressed to the provider for clarification Admission and Anticipated Discharge Date Admission Date: February 26, 2023 Subjective Patient seen and examined at bedside. She reports feeling much better today. Afebrile; saturating well on room air. Review of Systems Review of Systems: All systems reviewed & are unremarkable except as noted in Subjective Physical Exam Physical Exam: Constitutional: Awake, alert orient x3; appears comfortable. Respiratory: Bilateral vesicular breath sound. Cardiovascular: Regular, systolic murmur heard. Chest: normal inspection of chest Abdomen: Slightly distended, nontender. Bowel sound present. Musculoskeletal: no cyanosis or clubbing, extremities motor strength 5/5. No pitting edema. Skin: no rashes, warm and dry normal turgor Neurologic: PERRL, EOMI, accommodation nl, no face palsy, no dysarthria CN's II- XI intact bilaterally and moves all extremities Psychiatric: A+Ox3, euthymic affect Results & Data Results & Data Vital Signs (Past 12 Hours) Vital Signs Temp Pulse Pulse Resp BP BP Pulse Ox 02/27/23 11:31 36.5 C 73 16 113/69 98 02/27/23 08:00 69 02/27/23 07:56 36.9 C 68 16 109/69 98 02/27/23 03:21 36.5 C 64 18 99/64 L 98 O2 Del Method 02/27/23 11:31 Room Air 02/27/23 08:00 02/27/23 07:56 Room Air 02/27/23 03:21 Room Air Laboratory Results Laboratory Results WBC 5.28 K/ul (4.8-10.8) 02/27/23 05:25 RBC 2.71 M/uL (4.20-5.40) L 02/27/23 05:25 Hgb 7.7 g/dl (12.0-16.0) L 02/27/23 05:25 Hct 22.8 % (37.0-47.0) L 02/27/23 05:25 MCV 84.1 fL (80.0-100.0) 02/27/23 05:25 MCH 28.4 pg (25.0-34.0) 02/27/23 05:25 MCHC 33.8 g/dL (32.0-36.0) 02/27/23 05:25 RDW Std Deviation 45.1 fL (36.4-46.3) 02/27/23 05:25 RDW Coeff of Samy 14.8 % (11.5-14.5) H 02/27/23 05:25 Plt Count 163 K/uL (130-400) 02/27/23 05:25 MPV 9.6 fL (9.4-12.4) 02/27/23 05:25 Immature Gran % (Auto) 0.6 % 02/27/23 05:25 Neut % (Auto) 64.5 % 02/27/23 05:25 Lymph % (Auto) 22.2 % 02/27/23 05:25 [place] % (Auto) 9.3 % 02/27/23 05:25 Eos % (Auto) 2.3 % 02/27/23 05:25 Baso % (Auto) 1.1 % 02/27/23 05:25 Neut # (Auto) 3.41 K/uL (1.40-6.50) 02/27/23 05:25 Lymph # (Auto) 1.17 K/uL (1.2-3.4) L 02/27/23 05:25 [place] # (Auto) 0.49 K/uL (0.11-0.59) 02/27/23 05:25 Eos # (Auto) 0.12 K/uL (0-0.50) 02/27/23 05:25 Baso # (Auto) 0.06 K/uL (0-0.2) 02/27/23 05:25 Immature Gran # (Auto) 0.03 K/uL (0.01-0.20) 02/27/23 05:25 Polychromasia 1+ 02/27/23 05:25 Sodium 134 mmol/L (136-145) L 02/27/23 05:25 Potassium 3.8 mmol/L (3.5-5.1) D 02/27/23 05:25 Chloride 96 mmol/L (98-107) L 02/27/23 05:25 Carbon Dioxide 32 mmol/L (21-32) 02/27/23 05:25 Anion Gap 6 (3-11) 02/27/23 05:25 BUN 69 mg/dl (6-23) H 02/27/23 05:25 Creatinine 2.05 mg/dl (0.6-1.2) H 02/27/23 05:25 Est Cr Clr Drug Dosing 31.7 ml/min 02/27/23 05:25 Est GFR ( Amer) 29.8 ml/min 02/27/23 05:25 Est GFR (Non-Af Amer) 25.7 ml/min 02/27/23 05:25 BUN/Creatinine Ratio 33.7 (10-20) H 02/27/23 05:25 Glucose 122 mg/dl (70-99(Fasting)) H 02/27/23 05:25 POC Glucose 331 mg/dl (70-99) H* 02/27/23 11:47 Estimat Average Glucose 226 mg/dl 02/26/23 05:36 Hemoglobin A1c 9.5 % (4.5-5.6) H 02/26/23 05:36 Calcium 8.6 mg/dl (8.6-10.3) 02/27/23 05:25 Magnesium 2.3 mg/dl (1.7-2.4) 02/25/23 15:47 Total Bilirubin 0.7 mg/dl (0.2-1.0) 02/27/23 05:25 AST 25 U/L (13-39) 02/27/23 05:25 ALT 16 U/L (7-52) 02/27/23 05:25 Alkaline Phosphatase 83 U/L (34-104) 02/27/23 05:25 Ammonia 43.0 umol/L (18-72) 02/26/23 05:36 Troponin I High Sens 18.5 pg/ml (0-14) H 02/25/23 15:47 Total Protein 6.4 gm/dl (6.0-8.3) 02/27/23 05:25 Albumin 3.1 gm/dl (3.4-5.0) L 02/27/23 05:25 Globulin 3.3 gm/dl (2.5-4.0) 02/27/23 05:25 Albumin/Globulin Ratio 0.9 (0.9-2) 02/27/23 05:25 Urine Color Yellow 02/25/23 18:38 Urine Appearance Clear (Clear) 02/25/23 18:38 Urine pH 7.0 (4.5-7.5) 02/25/23 18:38 Ur Specific [place] 1.012 (1.000-1.030) 02/25/23 18:38 Urine Protein Trace (Negative) H 02/25/23 18:38 Urine Glucose (UA) 2+ (Negative) H 02/25/23 18:38 Urine Ketones Negative (Negative) 02/25/23 18:38 Urine Blood Trace (Negative) H 02/25/23 18:38 Urine Nitrite Negative (Negative) 02/25/23 18:38 Urine Bilirubin Negative (Negative) 02/25/23 18:38 Urine Urobilinogen Negative (Negative) 02/25/23 18:38 Ur Leukocyte Esterase Trace (Negative) H 02/25/23 18:38 Urine WBC (Auto) 1-5 /hpf (0-5) 02/25/23 18:38 Urine RBC (Auto) 0-4 /hpf (0-4) 02/25/23 18:38 U Hyaline Cast (Auto) 1-5 /lpf (0-5) 02/25/23 18:38 U Epithel Cells (Auto) 5-10 /lpf (0-5) H 02/25/23 18:38 Urine Bacteria (Auto) Negative (Negative) 02/25/23 18:38 Blood Type A Positive 02/25/23 15:47 Blood Type Recheck A Positive 02/25/23 16:10 Antibody Screen NEGATIVE 02/25/23 15:47 Crossmatch See Detail 02/25/23 15:47 Impressions Venous Doppler Study 02/25/23 16:49 ULTRASOUND BILATERAL LOWER EXTREMITY VENOUS CLINICAL HISTORY: Leg pain. COMPARISON STUDY: Bilateral lower extremity venous ultrasound dated 03/17/2022. TECHNIQUE: Real-time, grayscale, and color Doppler sonography of the deep veins of the right and left lower extremity was performed from the inguinal crease to the calf. Compression and augmentation were utilized. FINDINGS: There is no sonographic evidence of deep venous thrombosis identified in the right or left lower extremity. The common femoral, superficial femoral, and popliteal veins are patent and normally compressible bilaterally. The greater saphenous vein and the profunda femoris vein at the junction with the common femoral vein are clear in both legs. The visualized calf veins are patent bilaterally. IMPRESSION: There is no sonographic evidence of deep venous thrombosis identified in the right or left lower extremity. ACT 112: Negative or not required by law. Electronically signed by: Felipe Aguirre M.D. 02/25/2023 9:51 PM
[2023-02-27] MEDS ORDERED: INSULIN ASPART PER UNIT CHARGE SC ONE (14:30)
[2023-02-27] MEDS: CARBOHYDRATES FOR HYPOGLYCEMIA PO PRN ×2 (17:03→17:25)
[2023-02-27] MEDS: rOPINIRole HCL 0.25 MG TABLET PO SCH (20:01)
[2023-02-27] MEDS: MELATONIN 3 MG TAB PO SCH (20:01)
[2023-02-27] MEDS ORDERED: LANTUS PER UNIT CHARGE SQ SCH (21:00)
[2023-02-27] MEDS: DICLOFENAC SOD 1% GEL 100 GM TUBE EXT PRN (23:02)
[2023-02-28] MEDS: INSULIN ASPART PER UNIT CHARGE SC SCH ×6 (00:19→19:59)
[2023-02-28] MEDS: ACETAMINOPHEN 325 MG TAB PO PRN (02:33)
[2023-02-28 06:22] LABS: Basophils # (auto) 0.05 K/uL (0-0.2); Basophils % (auto) 0.9 %; Eosinophils # (auto) 0.09 K/uL (0-0.50); Eosinophils % (auto) 1.7 %; Hematocrit (blood only) 24.3 % (37.0-47.0); Hemoglobin 8.2 g/dl (12.0-16.0); Immature Granulocytes # (auto) 0.02 K/uL (0.01-0.20); Immature Granulocytes % (auto) 0.4 %; Lymphocytes # (auto) 1.13 K/uL (1.2-3.4); Lymphocytes % (auto) 21.3 %; Mean Corpuscular Hemoglobin 28.5 pg (25.0-34.0); Mean Corpuscular Hgb Conc 33.7 g/dL (32.0-36.0); Mean Corpuscular Volume 84.4 fL (80.0-100.0); Mean Platelet Volume 9.4 fL (9.4-12.4); Monocytes % (auto) 7.5 %; Neutrophils # (auto) 3.62 K/uL (1.40-6.50); Neutrophils % (auto) 68.2 %; Platelet Count 171 K/uL (130-400); RDW Coefficient of Variation 14.6 % (11.5-14.5); RDW Standard Deviation 45.1 fL (36.4-46.3); Red Blood Count 2.88 M/uL (4.20-5.40); White Blood Count 5.31 K/ul (4.8-10.8)
[2023-02-28 06:34] LABS: BUN Creatinine Ratio 33.3 (10-20); Calcium 8.9 mg/dl (8.6-10.3); Creatinine Clr Calc Pharmacy 32.3 ml/min; Est GFR (African American) 30.5 ml/min; Est GFR (Non-African American) 26.3 ml/min; Potassium 2.8 mmol/L (3.5-5.1)
--- NOTE | 2023-02-28 07:33 | Pharmacy Report ---
Pharmacy Glycemic Short Note 2 - Date of Service February 28, 2023 - Glycemic Short BSG Results (Last 24 hours): 02/27/23 02/27/23 02/27/23 07:38 11:45 11:46 Glucose POC Glucose 179 H 334 H* 327 H* 02/27/23 02/27/23 02/27/23 11:47 14:17 16:58 Glucose POC Glucose 331 H* 294 H 60 L* 02/27/23 02/27/23 02/27/23 17:00 17:01 17:19 Glucose POC Glucose 57 L* 59 L* 60 L* 02/27/23 02/27/23 02/27/23 17:20 17:45 18:47 Glucose POC Glucose 59 L* 229 H 164 H 02/27/23 02/28/23 02/28/23 20:05 00:07 04:50 Glucose POC Glucose 152 H 137 H 206 H 02/28/23 05:22 Glucose 194 H POC Glucose OUTPATIENT ANTIDIABETIC REGIMEN: * Lantus 10 units daily * metformin 500 mg PO BIDM * HbA1C = 9.5% (02/26/23) ASSESSMENT: 02/28/23 * Patient with hypoglycemic event yesterday prior to dinner d/t stacking insulin from extra accucheck at 1430, (given to ensure lunch BSG 331mg/dl was treated), HS Lantus held, BSG 206 at 0400. * DC HS Lantus, tighten CF/CR to prevent hyperglycemia, no additional accuchecks, ACHS only. * Increase goal range slightly to prevent further hypoglycemia. 02/26/23 * Ms Giron is a 62 y/o F with a PMH of T2DM who presents with a potential GI bleed. She is currently NPO for possible EGD. * Patient's BSGs on presentation in the ER were 345-377 mg/dL. Patient received 15 units of Lantus and 16 units of bolus. * Fasting this morning was 143 mg/dL. Lunch BSG was 181 mg/dL. * With lunch BSG > 180 mg/dL, will given Lantus 10 units today. * Additional Lantus dosing to be determined by dietary status. * Novolog weight-based stress of 2. PLAN FOR INPATIENT GLYCEMIC CONTROL: * Hold outpatient oral diabetes medications * Basal insulin * Lantus 15 units SQ Daily * Bolus insulin * NovoLog per scale ACHS or Q6hrs while NPO * Goal Range: Low 120 mg/dL - High 150 mg/dL * Correction Factor: 20 mg/dL/unit * Nutritional / Prandial insulin per carb ratio of 1 unit per 6 grams CHO consumed
[2023-02-28] MEDS: LANTUS PER UNIT CHARGE SQ SCH (08:29)
[2023-02-28] MEDS: APIXABAN 5 MG TABLET PO SCH ×2 (08:56→19:50)
[2023-02-28] MEDS: ROSUVASTATIN CALCIUM 5 MG TAB PO SCH (08:56)
[2023-02-28] MEDS: PANTOprazole 40 MG TAB PO SCH ×2 (08:56→19:50)
[2023-02-28] MEDS: TORSEMIDE 100 MG TAB PO SCH (08:56)
[2023-02-28] MEDS: SPIRONOLACTONE 100 MG TAB PO SCH (08:56)
[2023-02-28] MEDS: POTASSIUM CHLORIDE CRTAB 20 MEQ TABCR PO SCH ×2 (09:31→19:50)
[2023-02-28] MEDS: POTASSIUM CHLORIDE / WTR 10 MEQ/100 ML PLCT IV SCH ×2 (09:31→10:30)
--- NOTE | 2023-02-28 14:14 | Hospitalist Progress Note ---
Date of Service February 28, 2023 Assessment & Plan (1) Upper GI bleed: (2) 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: Plan: Patient came to the hospital for routine appointment; abdominal ultrasound showed trace ascites; paracentesis not performed. Patient reported dizziness and generalized weakness for last 2-3 days. Was sent to the ED for eval. JOYCE cirrhosis Upper GI bleed Gastric ulcers likely due to NSAIDs use H/O decompensated liver cirrhosis with ascites; obtains paracentesis every 6 weeks. Fecal occult positive in the ED S/P 1 unit of packed RBC transfusion S/P EGD on February 25, 2023:Normal esophagus. Portal hypertensive gastropathy. Non-bleeding gastric ulcers with no stigmata of bleeding. Biopsied. Normal examined duodenum. Patient admits to use Advil [id number] for chronic pain Plan to continue PPI twice a day for 3 months and then once daily Appreciate GI input Prior hospitalist discussed with GI regarding resumption of Eliquis restarted on 02/27/2023 Hemoglobin 8.2 today No recurrence of bleeding issues currently Continue diuretics as per nephrology (3) Hypokalemia: Plan: Hypokalemia Mildly elevated bicarbonate levels--chronic Likely due to diuretics Repeat electrolytes as needed Nephrology following Continue on spironolactone (Adjusted doses), Torsemide held Metolazone discontinued (4) Saddle pulmonary embolus: Plan: 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 Has been off Eliquis for last 2 days Venous duplex bilateral lower extremity negative for DVT. Eliquis resumed. (5) Diabetes: Plan: H/o DM II Uncontrolled HbA1c 9.5 On metformin and insulin at home. Stop metformin indefinitely given the lower GFR. Continue Lantus, insulin sliding scale while hospitalized We will consider starting on Jardiance as outpatient Appreciate glycemic pharmacist help Plan Other conditions: CKD stage III; appears to have progressive CKD on outpatient lab work. Cr near new baseline. Stop metolazone and lisinopril permanently. Torsemide held. Continue Aldactone for now Hypertension: Discontinued lisinopril. Monitor and adjust meds as needed Hyperlipidemia: continue rosuvastatin DVT Px: Apixaban Code Status Full Code Disposition Home as able Admission and Anticipated Discharge Date Admission Date: February 26, 2023 Subjective Patient is seen and examined at bedside Sitting in chair during my encounter Denies any bleeding issues Discussed with patient's family at bedside Offers no complaints today Denies any chest pain, dyspnea, dizziness, nausea, vomiting, abdominal pain Review of Systems Review of Systems: All systems reviewed & are unremarkable except as noted in Subjective Physical Exam Physical Exam: Physical Exam: Vitals signs as noted above General Appearance:Moderately built and nourished, no apparent distress Head: normocephalic, Atraumatic Eyes: normal inspection, EOMI Neck: supple, Trachea midline Respiratory/Chest: Normal breath sounds, CTA, No accessory muscle use Cardiovascular: S1, S2, + murmur Abdomen/GI:Soft, Non tender, Bowel sounds present Extremities/Musculoskeletal:normal inspection, Trace pedal edema Neurologic/Psych:AAOX3, grossly no focal neurological deficits Skin: normal color, warm Results & Data Results & Data Vital Signs (Past 12 Hours) Vital Signs Temp Pulse Pulse Resp BP BP Pulse Ox 02/28/23 12:01 36.7 C 80 18 130/78 98 02/28/23 08:00 77 02/28/23 08:00 02/28/23 08:13 36.6 C 64 19 169/74 H 95 02/28/23 02:45 36.7 C 68 18 103/64 97 O2 Del Method 02/28/23 12:01 Room Air 02/28/23 08:00 02/28/23 08:00 Room Air 02/28/23 08:13 Room Air 02/28/23 02:45 Room Air Laboratory Results Short CBC 02/28/23 Range/Units 05:22 WBC 5.31 (4.8-10.8) K/ul Hgb 8.2 L (12.0-16.0) g/dl Hct 24.3 L (37.0-47.0) % Plt Count 171 (130-400) K/uL BMP 02/28/23 05:22 Sodium 132 L Potassium 2.8 L D Chloride 91 L Carbon Dioxide 33 H BUN 67 H Creatinine 2.01 H Glucose 194 H Calcium 8.9
--- NOTE | 2023-02-28 14:51 | Nephrology Progress Note ---
Date of Service February 28, 2023 Assessment & Plan (1) BLAIRE (acute kidney injury): Plan: Renal dysfunction is predominantly chronic. I believe patient is very aggressi vely diuresed and this should be some room to lower the diuretics dose. This might help the kidney function and electrolytes to be somewhat better. Creatinine stable 2 today. -I would continue spironolactone 100 daily. -Reduce torsemide 50 mg daily -She will still need some abdominal paracentesis intermittently -Stop lisinopril and metformin going forward. (2) Hypokalemia: Plan: Profound hypokalemia despite 120 mEq/day of supplement triggered by metolazone. This is especially problematic significantly more than what we get with loop diuretic. I would recommend to use torsemide 50 daily with spironolactone 100 daily This may cut down the potassium supplements she requires significantly. Would like to follow-up with nephrology after discharge to further titrate the diuretics and electrolytes supple Admission and Anticipated Discharge Date Admission Date: February 26, 2023 Subjective Seen for BLAIRE on CKD and volume overload. She feels better today. No leg swelling. No shortness of breath. Potassium remains low. Review of Systems Review of Systems: All other systems were reviewed and negative except as noted in HPI Physical Exam Physical Exam: General exam: Appears comfortable, no acute distress HEENT: Pupils are equal and reactive to light Neck: No JVD, neck is supple trachea is midline Respiratory system: Clear breath sounds bilaterally. Gastrointestinal: Abdomen is soft, non distended, non tender, bowel sounds are present CVS: Regular rate and rhythm. No murmurs, rubs or gallops Musculoskeletal: No joint or muscle tenderness Extremities: Non tender, no edema, peripheral pulses are present Neuro: Oriented, no tremors, no focal neurological deficits Skin: No rashes Results & Data Vital Signs (Past 12 Hours) Vital Signs Temp Pulse Pulse Resp BP Pulse Ox O2 Del Method 02/28/23 12:01 36.7 C 80 18 130/78 98 Room Air 02/28/23 08:00 77 02/28/23 08:00 Room Air 02/28/23 08:13 36.6 C 64 19 169/74 H 95 Room Air Laboratory Results 02/28/23 05:22 02/28/23 05:22 WBC 5.31 RBC 2.88 L MCV 84.4 MCH 28.5 MCHC 33.7 RDW Std Deviation 45.1 RDW Coeff of Samy 14.6 H Plt Count 171 MPV 9.4
[2023-02-28] MEDS: MELATONIN 3 MG TAB PO SCH (19:50)
[2023-02-28] MEDS: rOPINIRole HCL 0.25 MG TABLET PO SCH (19:50)
[2023-03-01 06:11] LABS: Hematocrit (blood only) 23.2 % (37.0-47.0); Hemoglobin 7.8 g/dl (12.0-16.0)
[2023-03-01 06:27] LABS: BUN Creatinine Ratio 31.3 (10-20); Calcium 8.8 mg/dl (8.6-10.3); Creatinine Clr Calc Pharmacy 28.2 ml/min; Est GFR (African American) 25.9 ml/min; Est GFR (Non-African American) 22.4 ml/min; Magnesium 1.9 mg/dl (1.7-2.4); Potassium 3.3 mmol/L (3.5-5.1)
[2023-03-01] MEDS ORDERED: POLYETHYLENE (MIRALAX) 17 GM PACK PO PRN (07:34)
[2023-03-01] MEDS: INSULIN ASPART PER UNIT CHARGE SC SCH ×4 (08:27→21:07)
[2023-03-01] MEDS: LANTUS PER UNIT CHARGE SQ SCH (08:27)
[2023-03-01] MEDS: POTASSIUM CHLORIDE CRTAB 20 MEQ TABCR PO SCH ×2 (08:37→21:09)
[2023-03-01] MEDS: APIXABAN 5 MG TABLET PO SCH ×2 (08:38→21:10)
[2023-03-01] MEDS: ROSUVASTATIN CALCIUM 5 MG TAB PO SCH (08:38)
[2023-03-01] MEDS: SPIRONOLACTONE 100 MG TAB PO SCH (08:38)
[2023-03-01] MEDS: PANTOprazole 40 MG TAB PO SCH ×2 (08:38→21:08)
[2023-03-01] MEDS ORDERED: TORSEMIDE 10 MG TAB PO SCH (09:00)
[2023-03-01] MEDS: DOCUSATE SODIUM 100 MG CAP PO SCH ×2 (09:36→21:08)
--- NOTE | 2023-03-01 09:42 | Pharmacy Report ---
Pharmacy Glycemic Short Note 2 - Date of Service March 01, 2023 - Glycemic Short BSG Results (Last 24 hours): 02/28/23 02/28/23 02/28/23 11:39 16:50 19:42 Glucose POC Glucose 206 H 239 H 221 H 03/01/23 03/01/23 05:30 07:02 Glucose 215 H POC Glucose 222 H OUTPATIENT ANTIDIABETIC REGIMEN: * Lantus 10 units daily * Metformin 500 mg PO BIDM * HbA1c: 9.5% (02/26/23) ASSESSMENT: 03/01: * Saida received 49 units of insulin yesterday, 15 units basal + 34 units bolus. BSGs were elevated: [phone] mg/dL. Likely related to loosening bolus insulin parameters yesterday. * Fasting BSG elevated this AM at 222 mg/dL. Will increase basal by ~30% today. * Given trend upward in postprandial BSGs yesterday, will tighten Novolog back to previous parameters. Monitor for hypoglycemia. 02/28: * Patient with hypoglycemic event yesterday prior to dinner d/t stacking insulin from extra accucheck at 1430, (given to ensure lunch BSG 331mg/dl was treated), HS Lantus held, BSG 206 at 0400. * DC HS Lantus, tighten CF/CR to prevent hyperglycemia, no additional accuchecks, ACHS only. * Increase goal range slightly to prevent further hypoglycemia. 02/26: * Ms Giron is a 62 y/o F with a PMH of T2DM who presents with a potential GI bleed. She is currently NPO for possible EGD. * Patient's BSGs on presentation in the ER were 345-377 mg/dL. Patient received 15 units of Lantus and 16 units of bolus. * Fasting this morning was 143 mg/dL. Lunch BSG was 181 mg/dL. * With lunch BSG > 180 mg/dL, will given Lantus 10 units today. * Additional Lantus dosing to be determined by dietary status. * Novolog weight-based stress of 2. PLAN FOR INPATIENT GLYCEMIC CONTROL: * Hold outpatient oral diabetes medications * Basal insulin * Lantus 20 units SC Daily * Bolus insulin * NovoLog per scale ACHS or Q6hrs while NPO * Goal Range: Low 120 mg/dL - High 150 mg/dL * Correction Factor: 15 mg/dL/unit * Nutritional / Prandial insulin per carb ratio of 1 unit per 5 grams CHO consumed
[2023-03-01] MEDS: traMADol HCL 50 MG TABLET PO PRN (10:38)
--- NOTE | 2023-03-01 11:07 | Nephrology Progress Note ---
Date of Service March 01, 2023 Assessment & Plan Admission and Anticipated Discharge Date Admission Date: February 26, 2023 Subjective Assessment & Plan (1) BLAIRE (acute kidney injury): Plan: Renal dysfunction is predominantly chronic. I believe patient is very aggressively diuresed and this should be some room to lower the diuretics dose. This might help the kidney function and electrolytes to be somewhat better. Creatinine rising -She will still need some abdominal paracentesis intermittently Stop lisinopril and metformin going forward--permanently. Still trying to adjust the dose of torsemide she needs. Creat going up now for 2 days. Stop torsemide for now ( already got AM dose though) reassess tomorrow after labs. spironolactone 100 daily (2) Hypokalemia: Plan: Profound hypokalemia despite 120 mEq/day of supplement triggered by metolazone. Would need follow-up with nephrology after discharge to further titrate the diuretics and electrolytes supple Subjective Seen for BLAIRE on CKD and volume overload. She feels better today. No leg swelling. No shortness of breath. Potassium remains low. Review of Systems Review of Systems: All other systems were reviewed and negative except as noted in HPI Physical Exam Physical Exam: General exam: Appears comfortable, no acute distress HEENT: Pupils are equal and reactive to light Neck: No JVD, neck is supple trachea is midline Respiratory system: Clear breath sounds bilaterally. Gastrointestinal: Abdomen is soft, non distended, non tender, bowel sounds are present CVS: Regular rate and rhythm. No murmurs, rubs or gallops Musculoskeletal: No joint or muscle tenderness Extremities: Non tender, no edema, peripheral pulses are present Neuro: Oriented, no tremors, no focal neurological deficits Skin: No rashes Results & Data Vital Signs (Past 12 Hours) Vital Signs Temp Pulse Pulse Resp BP Pulse Ox O2 Del Method 03/01/23 07:58 Room Air 03/01/23 07:47 36.6 C 76 17 107/69 96 Room Air 03/01/23 07:13 75 03/01/23 03:29 36.7 C 80 16 109/55 L 94 Room Air
--- NOTE | 2023-03-01 16:25 | Hospitalist Progress Note ---
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 Patient reported dizziness and generalized weakness for last 2-3 days. Was sent to the ED for eval. JOYCE cirrhosis Upper GI bleed Gastric ulcers likely due to NSAIDs use H/O decompensated liver cirrhosis with ascites; obtains paracentesis every 6 weeks. Fecal occult positive in the ED S/P 1 unit of packed RBC transfusion S/P EGD on February 25, 2023:Normal esophagus. Portal hypertensive gastropathy. Non-bleeding gastric ulcers with no stigmata of bleeding. Biopsied. Normal examined duodenum. Patient admits to use Advil [id number] for chronic pain Plan to continue PPI twice a day for 3 months and then once daily Appreciate GI input Prior hospitalist discussed with GI regarding resumption of Eliquis restarted on 02/27/2023 Hemoglobin 7.8 today No recurrence of bleeding issues currently Continue diuretics as per nephrology Continue current management (3) Hypokalemia: Plan: Hypokalemia Mildly elevated bicarbonate levels--chronic Likely due to diuretics Repeat electrolytes as needed Nephrology following Continue on spironolactone (Adjusted doses), Torsemide held for now Metolazone discontinued BLAIRE on CKD stage III Cr 2.3 today Lisinopril, metformin will be discontinued permanently Torsemide held for now Continue Aldactone 100 mg daily Nephrology following Monitor renal function Avoid nephrotoxic agents as able (4) Saddle pulmonary embolus: Plan: 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 Has been off Eliquis for last 2 days Venous duplex bilateral lower extremity negative for DVT. Eliquis resumed. (5) Diabetes: Plan: H/o DM II Uncontrolled HbA1c 9.5 On metformin and insulin at home. Stop metformin indefinitely given the lower GFR. Continue Lantus, insulin sliding scale while hospitalized We will consider starting on Jardiance as outpatient Appreciate glycemic pharmacist help Plan Other conditions: Hypertension: Discontinued lisinopril. Monitor and adjust meds as needed Hyperlipidemia: continue rosuvastatin DVT Px: Apixaban Code Status Full Code Disposition Home as able Admission and Anticipated Discharge Date Admission Date: February 26, 2023 Subjective Patient is seen and examined at bedside Renal function slightly worse today Reports transient dyspnea, resolved Reports chronic back pain Denies any bleeding issues Denies any chest pain, dizziness, nausea, vomiting, abdominal pain Review of Systems Review of Systems: All systems reviewed & are unremarkable except as noted in Subjective Physical Exam Physical Exam: Physical Exam: Vitals signs as noted above General Appearance:Moderately built and nourished, no apparent distress Head: normocephalic, Atraumatic Eyes: normal inspection, EOMI Neck: supple, Trachea midline Respiratory/Chest: Normal breath sounds, CTA, No accessory muscle use Cardiovascular: S1, S2, + murmur Abdomen/GI:Soft, Non tender, Bowel sounds present Extremities/Musculoskeletal:normal inspection, Trace pedal edema Neurologic/Psych:AAOX3, grossly no focal neurological deficits Skin: normal color, warm Results & Data Results & Data Vital Signs (Past 12 Hours) Vital Signs Temp Pulse Pulse Resp BP Pulse Ox O2 Del Method 03/01/23 15:38 81 03/01/23 10:46 36.6 C 94 H 20 162/96 H 98 Room Air 03/01/23 07:58 Room Air 03/01/23 07:47 36.6 C 76 17 107/69 96 Room Air 03/01/23 07:13 75 Laboratory Results Short CBC 03/01/23 Range/Units 05:30 Hgb 7.8 L (12.0-16.0) g/dl Hct 23.2 L (37.0-47.0) % BMP 03/01/23 05:30 Sodium 131 L Potassium 3.3 L Chloride 91 L Carbon Dioxide 32 BUN 72 H Creatinine 2.30 H Glucose 215 H Calcium 8.8
[2023-03-01] MEDS: MELATONIN 3 MG TAB PO SCH (21:08)
[2023-03-01] MEDS: rOPINIRole HCL 0.25 MG TABLET PO SCH (21:10)
[2023-03-02 06:12] LABS: Hematocrit (blood only) 23.5 % (37.0-47.0)
[2023-03-02 06:32] LABS: BUN Creatinine Ratio 33.9 (10-20); Calcium 9.3 mg/dl (8.6-10.3); Creatinine Clr Calc Pharmacy 29.1 ml/min; Est GFR (African American) 26.7 ml/min; Est GFR (Non-African American) 23.1 ml/min; Potassium 3.4 mmol/L (3.5-5.1)
[2023-03-02] MEDS: POTASSIUM CHLORIDE CRTAB 20 MEQ TABCR PO SCH ×2 (08:45→20:52)
[2023-03-02] MEDS: PANTOprazole 40 MG TAB PO SCH ×2 (08:45→20:50)
[2023-03-02] MEDS: DOCUSATE SODIUM 100 MG CAP PO SCH ×2 (08:45→20:53)
[2023-03-02] MEDS: APIXABAN 5 MG TABLET PO SCH ×2 (08:45→20:50)
[2023-03-02] MEDS: SPIRONOLACTONE 100 MG TAB PO SCH (08:46)
[2023-03-02] MEDS: ROSUVASTATIN CALCIUM 5 MG TAB PO SCH (08:46)
[2023-03-02] MEDS: INSULIN ASPART PER UNIT CHARGE SC SCH ×4 (08:53→21:16)
[2023-03-02] MEDS: LANTUS PER UNIT CHARGE SQ SCH (08:54)
--- NOTE | 2023-03-02 09:44 | Nephrology Progress Note ---
Date of Service March 02, 2023 Assessment & Plan Admission and Anticipated Discharge Date Admission Date: February 26, 2023 Subjective Assessment & Plan (1) BLAIRE (acute kidney injury): Plan: Renal dysfunction is predominantly chronic. I believe patient is very aggressively diuresed and this should be some room to lower the diuretics dose. This might help the kidney function and electrolytes to be somewhat better. Creatinine rising Stop lisinopril and metformin going forward--permanently. Still trying to adjust the dose of torsemide she needs if any ? . Creat going up now for 2 days. Stop torsemide for now reassess tomorrow after labs. Continue spironolactone 100 daily kcl 20 bid. (2) Hypokalemia: Plan: Profound hypokalemia despite 120 mEq/day of supplement triggered by metolazone. Would need follow-up with nephrology after discharge to further titrate the diuretics and electrolytes supple Subjective Seen for BLAIRE on CKD and volume overload. She feels better today. No leg swelling. No shortness of breath. Potassium remains low. Review of Systems Review of Systems: All other systems were reviewed and negative except as noted in HPI Physical Exam Physical Exam: General exam: Appears comfortable, no acute distress HEENT: Pupils are equal and reactive to light Neck: No JVD, neck is supple trachea is midline Respiratory system: Clear breath sounds bilaterally. Gastrointestinal: Abdomen is soft, non distended, non tender, bowel sounds are present CVS: Regular rate and rhythm. No murmurs, rubs or gallops Musculoskeletal: No joint or muscle tenderness Extremities: Non tender, no edema, peripheral pulses are present Neuro: Oriented, no tremors, no focal neurological deficits Skin: No rashes Results & Data Vital Signs (Past 12 Hours) Vital Signs Temp Pulse Pulse Resp BP Pulse Ox O2 Del Method 03/02/23 07:38 36.6 C 69 17 102/66 95 Room Air 03/02/23 03:15 36.6 C 73 16 99/64 L 96 Room Air 03/01/23 23:21 74 03/01/23 23:01 36.5 C 72 18 99/62 L 94 Room Air
--- NOTE | 2023-03-02 14:55 | Hospitalist Progress Note ---
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 Patient reported dizziness and generalized weakness for last 2-3 days. Was sent to the ED for eval. JOYCE cirrhosis Upper GI bleed Gastric ulcers likely due to NSAIDs use H/O decompensated liver cirrhosis with ascites; obtains paracentesis every 6 weeks. Fecal occult positive in the ED S/P 1 unit of packed RBC transfusion S/P EGD on February 25, 2023:Normal esophagus. Portal hypertensive gastropathy. Non-bleeding gastric ulcers with no stigmata of bleeding. Biopsied. Normal examined duodenum. Patient admits to use Advil [id number] for chronic pain Plan to continue PPI twice a day for 3 months and then once daily Appreciate GI input Prior hospitalist discussed with GI regarding resumption of Eliquis restarted on 02/27/2023 Hemoglobin 8.0 today No recurrence of bleeding issues Given rising creatinine, torsemide held Continue spironolactone 100 mg daily (3) Hypokalemia: Plan: Hypokalemia Mildly elevated bicarbonate levels--chronic Likely due to diuretics Repeat electrolytes as needed Nephrology following Continue on spironolactone (Adjusted doses), Torsemide held Metolazone discontinued BLAIRE on CKD stage III Cr 2.2 today Lisinopril, metformin will be discontinued permanently Torsemide held for now Continue Aldactone 100 mg daily Nephrology following Monitor renal function Avoid nephrotoxic agents as able (4) Saddle pulmonary embolus: Plan: 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 Has been off Eliquis for last 2 days Venous duplex bilateral lower extremity negative for DVT. Eliquis resumed. (5) Diabetes: Plan: H/o DM II Uncontrolled HbA1c 9.5 On metformin and insulin at home. Stop metformin indefinitely given the lower GFR. Continue Lantus, insulin sliding scale while hospitalized We will consider starting on Jardiance as outpatient Appreciate glycemic pharmacist help Plan Other conditions: Hypertension: Discontinued lisinopril. Monitor and adjust meds as needed Hyperlipidemia: continue rosuvastatin DVT Px: Apixaban Code Status Full Code Disposition Home as able Admission and Anticipated Discharge Date Admission Date: February 26, 2023 Subjective Patient is seen and examined at bedside Sitting in chair during my encounter States feeling weak Offers no new complaints Discussed with nephrology today Back pain improved Denies any chest pain, dizziness, nausea, vomiting, abdominal pain Review of Systems Review of Systems: All systems reviewed & are unremarkable except as noted in Subjective Physical Exam Physical Exam: Physical Exam: Vitals signs as noted above General Appearance:Moderately built and nourished, no apparent distress Head: normocephalic, Atraumatic Eyes: normal inspection, EOMI Neck: supple, Trachea midline Respiratory/Chest: Normal breath sounds, CTA, No accessory muscle use Cardiovascular: S1, S2, + murmur Abdomen/GI:Soft, Non tender, Bowel sounds present Extremities/Musculoskeletal:normal inspection, Trace pedal edema Neurologic/Psych:AAOX3, grossly no focal neurological deficits Skin: normal color, warm Results & Data Results & Data Vital Signs (Past 12 Hours) Vital Signs Temp Pulse Resp BP Pulse Ox O2 Del Method 03/02/23 12:17 36.7 C 76 17 106/70 100 Room Air 03/02/23 07:38 36.6 C 69 17 102/66 95 Room Air 03/02/23 03:15 36.6 C 73 16 99/64 L 96 Room Air Laboratory Results Short CBC 03/02/23 Range/Units 05:35 Hgb 8.0 L (12.0-16.0) g/dl Hct 23.5 L (37.0-47.0) % BMP 03/02/23 05:35 Sodium 134 L Potassium 3.4 L Chloride 93 L Carbon Dioxide 30 BUN 76 H Creatinine 2.24 H Glucose 142 H Calcium 9.3
[2023-03-02] MEDS: rOPINIRole HCL 0.25 MG TABLET PO SCH (20:50)
[2023-03-02] MEDS: MELATONIN 3 MG TAB PO SCH (20:52)
[2023-03-03 06:51] LABS: Hematocrit (blood only) 23.5 % (37.0-47.0); Hemoglobin 7.9 g/dl (12.0-16.0)
[2023-03-03 07:11] LABS: Calcium 9.3 mg/dl (8.6-10.3); Creatinine Clr Calc Pharmacy 29.5 ml/min; Est GFR (Non-African American) 23.3 ml/min; Magnesium 2.3 mg/dl (1.7-2.4); Potassium 3.9 mmol/L (3.5-5.1)
--- NOTE | 2023-03-03 08:24 | Pharmacy Report ---
Pharmacy Glycemic Short Note 2 - Date of Service March 03, 2023 - Glycemic Short BSG Results (Last 24 hours): 03/02/23 03/02/23 03/02/23 11:48 16:36 20:49 Glucose POC Glucose 212 H 196 H 186 H 03/03/23 03/03/23 06:15 07:46 Glucose 169 H POC Glucose 194 H OUTPATIENT ANTIDIABETIC REGIMEN: * Lantus 10 units daily * Metformin 500 mg PO BIDM * HbA1c: 9.5% (02/26/23) ASSESSMENT: 03/03: * BSGs ranging 158-212 mg/dL yesterday, received 69 units of insulin (20 units of basal, 49 units of prandial/correctional bolus) * Given persistent BSG elevation yesterday, will tighten carb ratio * Fasting BSG elevated this morning - will increase basal 03/01: * Saida received 49 units of insulin yesterday, 15 units basal + 34 units bolus. BSGs were elevated: 139-278-393-221 mg/dL. Likely related to loosening bolus insulin parameters yesterday. * Fasting BSG elevated this AM at 222 mg/dL. Will increase basal by ~30% today. * Given trend upward in postprandial BSGs yesterday, will tighten Novolog back t o previous parameters. Monitor for hypoglycemia. 02/28: * Patient with hypoglycemic event yesterday prior to dinner d/t stacking insulin from extra accucheck at 1430, (given to ensure lunch BSG 331mg/dl was treated), HS Lantus held, BSG 206 at 0400. * DC HS Lantus, tighten CF/CR to prevent hyperglycemia, no additional accuchecks, ACHS only. * Increase goal range slightly to prevent further hypoglycemia. 02/26: * Ms Giron is a 62 y/o F with a PMH of T2DM who presents with a potential GI bleed. She is currently NPO for possible EGD. * Patient's BSGs on presentation in the ER were 345-377 mg/dL. Patient received 15 units of Lantus and 16 units of bolus. * Fasting this morning was 143 mg/dL. Lunch BSG was 181 mg/dL. * With lunch BSG > 180 mg/dL, will given Lantus 10 units today. * Additional Lantus dosing to be determined by dietary status. * Novolog weight-based stress of 2. PLAN FOR INPATIENT GLYCEMIC CONTROL: * Hold outpatient oral diabetes medications * Basal insulin - increase * Lantus 25 units SC Daily * Bolus insulin - tighten * NovoLog per scale ACHS or Q6hrs while NPO * Goal Range: Low 120 mg/dL - High 150 mg/dL * Correction Factor: 20 mg/dL/unit * Nutritional / Prandial insulin per carb ratio of 1 unit per 4 grams CHO consumed
[2023-03-03] MEDS: INSULIN ASPART PER UNIT CHARGE SC SCH ×3 (08:48→17:31)
[2023-03-03] MEDS: POTASSIUM CHLORIDE CRTAB 20 MEQ TABCR PO SCH (08:49)
[2023-03-03] MEDS: DOCUSATE SODIUM 100 MG CAP PO SCH (08:50)
[2023-03-03] MEDS: APIXABAN 5 MG TABLET PO SCH (08:50)
[2023-03-03] MEDS: SPIRONOLACTONE 100 MG TAB PO SCH (08:50)
[2023-03-03] MEDS: PANTOprazole 40 MG TAB PO SCH (08:50)
[2023-03-03] MEDS: ROSUVASTATIN CALCIUM 5 MG TAB PO SCH (08:51)
[2023-03-03] MEDS ORDERED: LANTUS PER UNIT CHARGE SQ SCH (09:00)
[2023-03-03] MEDS ORDERED: SODIUM CHLORIDE 0.9% 250 ML IV PRN (10:44)
[2023-03-03] MEDS: traMADol HCL 50 MG TABLET PO PRN (12:09)
[2023-03-03] MEDS ORDERED: TORSEMIDE 20 MG TAB PO SCH (13:15)
--- NOTE | 2023-03-03 13:15 | Nephrology Progress Note ---
Date of Service March 03, 2023 Assessment & Plan Admission and Anticipated Discharge Date Admission Date: February 26, 2023 Subjective Assessment & Plan (1) BLAIRE (acute kidney injury): Plan: Renal dysfunction is predominantly chronic. I believe patient was very aggressively diuresed and this should be some room to lower the diuretics dose. This might help the kidney function and electrolytes to be somewhat better. Creatinine rising Stop lisinopril and metformin going forward--permanently. Creat now stable at 2.2 Will restart torsemide at a much lower dose of 20 daily Continue spironolactone 100 daily kcl 20 bid. Discharge on these doses. Would need follow-up with nephrology after discharge to further titrate the diuretics and electrolytes supple (2) Hypokalemia: Plan: Profound hypokalemia despite 120 mEq/day of supplement triggered by metolazone. Subjective Seen for BLAIRE on CKD and volume overload. She feels better today. No leg swelling. No shortness of breath. Review of Systems Review of Systems: All other systems were reviewed and negative except as noted in HPI Physical Exam Physical Exam: General exam: Appears comfortable, no acute distress HEENT: Pupils are equal and reactive to light Neck: No JVD, neck is supple trachea is midline Respiratory system: Clear breath sounds bilaterally. Gastrointestinal: Abdomen is soft, non distended, non tender, bowel sounds are present CVS: Regular rate and rhythm. No murmurs, rubs or gallops Musculoskeletal: No joint or muscle tenderness Extremities: Non tender, no edema, peripheral pulses are present Neuro: Oriented, no tremors, no focal neurological deficits Skin: No rashes Results & Data Vital Signs (Past 12 Hours) Vital Signs Temp Pulse Pulse Resp BP BP BP 03/03/23 13:10 36.8 C 82 18 137/79 03/03/23 12:30 36.7 C 83 19 134/82 03/03/23 08:00 82 03/03/23 08:00 37.0 C 79 17 128/71 03/03/23 04:10 36.8 C 79 16 125/74 Pulse Ox O2 Del Method 03/03/23 13:10 97 03/03/23 12:30 96 Room Air 03/03/23 08:00 03/03/23 08:00 97 Room Air 03/03/23 04:10 95 Room Air
--- NOTE | 2023-03-03 13:54 | Hospitalist Progress Note ---
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 Patient reported dizziness and generalized weakness for last 2-3 days. Was sent to the ED for eval. JOYCE cirrhosis Upper GI bleed Gastric ulcers likely due to NSAIDs use Symptomatic anemia-POA H/O decompensated liver cirrhosis with ascites; obtains paracentesis every 6 weeks. Fecal occult positive in the ED S/P 1 unit of packed RBC transfusion S/P EGD on February 25, 2023:Normal esophagus. Portal hypertensive gastropathy. Non-bleeding gastric ulcers with no stigmata of bleeding. Biopsied. Normal examined duodenum. Patient admits to use Advil [id number] for chronic pain Plan to continue PPI twice a day for 3 months and then once daily Appreciate GI input Prior hospitalist discussed with GI regarding resumption of Eliquis restarted on 02/27/2023 Hemoglobin 7.9 today No recurrence of bleeding issues Renal function stable Resume torsemide at lower dose 20mg daily Continue spironolactone 100 mg daily Given symptomatic anemia, will transfuse 1 unit PRBC Plan to discharge home today Advised to follow-up with PCP with repeat blood work (3) Hypokalemia: Plan: Hypokalemia Mildly elevated bicarbonate levels--chronic Likely due to diuretics Repeat electrolytes as needed Nephrology following Continue spironolactone 100 mg daily, torsemide 20 mg daily Metolazone discontinued Continue potassium Chloride 20 mg BID BLAIRE on CKD stage III Cr 2.2 today Lisinopril, metformin will be discontinued permanently Appreciate nephrology Monitor renal function Avoid nephrotoxic agents as able Needs follow-up with nephrology upon discharge (4) Saddle pulmonary embolus: Plan: 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 Has been off Eliquis for last 2 days Venous duplex bilateral lower extremity negative for DVT. Eliquis resumed. (5) Diabetes: Plan: H/o DM II Uncontrolled HbA1c 9.5 On metformin and insulin at home. Stop metformin indefinitely given the lower GFR. Continue Lantus, insulin sliding scale while hospitalized We will consider starting on Jardiance as outpatient Appreciate glycemic pharmacist help Plan Other conditions: Hypertension: Discontinued lisinopril. Monitor and adjust meds as needed Hyperlipidemia: continue rosuvastatin DVT Px: Apixaban Code Status Full Code Disposition Home Admission and Anticipated Discharge Date Admission Date: February 26, 2023 Subjective Patient is seen and examined at bedside Still feels very tired and weak No recurrence of bleeding issues Renal function stable No other complaints Denies any chest pain, dizziness, nausea, vomiting, abdominal pain Review of Systems Review of Systems: All systems reviewed & are unremarkable except as noted in Subjective Physical Exam Physical Exam: Physical Exam: Vitals signs as noted above General Appearance:Moderately built and nourished, no apparent distress Head: normocephalic, Atraumatic Eyes: normal inspection, EOMI Neck: supple, Trachea midline Respiratory/Chest: Normal breath sounds, CTA, No accessory muscle use Cardiovascular: S1, S2, + murmur Abdomen/GI:Soft, Non tender, Bowel sounds present Extremities/Musculoskeletal:normal inspection, Trace pedal edema Neurologic/Psych:AAOX3, grossly no focal neurological deficits Skin: normal color, warm Results & Data Results & Data Vital Signs (Past 12 Hours) Vital Signs Temp Pulse Pulse Resp BP BP BP 03/03/23 13:28 36.5 C 82 16 128/80 03/03/23 13:10 36.8 C 82 18 137/79 03/03/23 12:30 36.7 C 83 19 134/82 03/03/23 08:00 82 03/03/23 08:00 37.0 C 79 17 128/71 03/03/23 04:10 36.8 C 79 16 125/74 Pulse Ox O2 Del Method 03/03/23 13:28 97 03/03/23 13:10 97 03/03/23 12:30 96 Room Air 03/03/23 08:00 03/03/23 08:00 97 Room Air 03/03/23 04:10 95 Room Air Laboratory Results Short CBC 03/03/23 Range/Units 06:15 Hgb 7.9 L (12.0-16.0) g/dl Hct 23.5 L (37.0-47.0) % BMP 03/03/23 06:15 Sodium 133 L Potassium 3.9 Chloride 96 L Carbon Dioxide 29 BUN 71 H Creatinine 2.22 H Glucose 169 H Calcium 9.3
--- NOTE | 2023-03-03 14:20 | Discharge Summary ---
Date of Service March 03, 2023 Admission HPI Per Admitting Provider History obtained from chart review and interview with the patient. Past medical history of decompensated liver cirrhosis secondary to JOYCE, CKD stage IIIb, type 2 diabetes mellitus, asthma, DVT/PE on Eliquis Last confinement in March 2022 with decompensated liver cirrhosis/ascites along with pulmonary embolism. Patient has history of decompensated liver cirrhosis with ascites; obtains paracentesis every 6 weeks. She came to the hospital for routine appointment; abdominal ultrasound did not show any ascites. Patient reported dizziness and generalized weakness for last 2-3 days. She also reports pain in her bilateral lower extremities. She denies any fever, chills, chest pain. She reports mild abdominal discomfort. She denies nausea, vomiting. She denies dark stools. She reports compliance with her medication. Her last dose of Eliquis was 2 days ago; was on hold for paracentesis today. In the ED, patient was found to be normotensive, afebrile and saturating well on room air. Hemoglobin was 7.4; her last hemoglobin was 9.1 in February 15, 2023. BMP reveals creatinine of 1.95; similar to her baseline. BUN elevated compared to baseline at 85. Also, potassium of 2.6, corrective sodium of 134. Hemoccult positive in the ED. Type and screen done and patient ordered 1 unit of blood. No recent endoscopy. Past medical history; as above Past surgical history; history of laparoscopic cholecystectomy, last colonoscopy in May 2022 Family history; mother alive with diabetes and hypertension Social history; no history of smoking or alcohol use. Admission Exam Per Admitting Provider Constitutional: Awake, alert orient x3; appears to be in mild discomfort Respiratory: Bilateral vesicular breath sound. Cardiovascular: Regular, systolic murmur heard. Chest: normal inspection of chest Abdomen: Slightly distended, nontender. Bowel sound present. Musculoskeletal: no cyanosis or clubbing, extremities motor strength 5/5. No pitting edema. Skin: no rashes, warm and dry normal turgor Neurologic: PERRL, EOMI, accommodation nl, no face palsy, no dysarthria CN's II- XI intact bilaterally and moves all extremities Psychiatric: A+Ox3, euthymic affect Principal Diagnosis JOYCE cirrhosis Upper GI bleed Gastric ulcers likely due to NSAID (Diclofenac sodium) use Symptomatic anemia Hypokalemia Acute kidney injury on CKD stage III Uncontrolled diabetes mellitus Discharge Data Allergies Allergy/AdvReac Type Severity Reaction Status Date / Time morphine AdvReac Intermediate Vomiting Verified 02/26/23 12:24 Consultations 02/25/23 16:10 ED Decision to Admit Stat 02/25/23 16:49 Consult Gastroenterology Routine 02/26/23 09:07 Consult Nephrology Routine Procedures Performed Operation Date: 02/26/23 16:30 Actual Procedures p EGD Biopsy Cytology - Laquita Alexander, DO Laboratory Results WBC 5.31 K/ul (4.8-10.8) 02/28/23 05:22 RBC 2.88 M/uL (4.20-5.40) L 02/28/23 05:22 Hgb 7.9 g/dl (12.0-16.0) L 03/03/23 06:15 Hct 23.5 % (37.0-47.0) L 03/03/23 06:15 MCV 84.4 fL (80.0-100.0) 02/28/23 05:22 MCH 28.5 pg (25.0-34.0) 02/28/23 05:22 MCHC 33.7 g/dL (32.0-36.0) 02/28/23 05:22 RDW Std Deviation 45.1 fL (36.4-46.3) 02/28/23 05:22 RDW Coeff of Samy 14.6 % (11.5-14.5) H 02/28/23 05:22 Plt Count 171 K/uL (130-400) 02/28/23 05:22 MPV 9.4 fL (9.4-12.4) 02/28/23 05:22 Immature Gran % (Auto) 0.4 % 02/28/23 05:22 Neut % (Auto) 68.2 % 02/28/23 05:22 Lymph % (Auto) 21.3 % 02/28/23 05:22 [place] % (Auto) 7.5 % 02/28/23 05:22 Eos % (Auto) 1.7 % 02/28/23 05:22 Baso % (Auto) 0.9 % 02/28/23 05:22 Neut # (Auto) 3.62 K/uL (1.40-6.50) 02/28/23 05:22 Lymph # (Auto) 1.13 K/uL (1.2-3.4) L 02/28/23 05:22 [place] # (Auto) 0.40 K/uL (0.11-0.59) 02/28/23 05:22 Eos # (Auto) 0.09 K/uL (0-0.50) 02/28/23 05:22 Baso # (Auto) 0.05 K/uL (0-0.2) 02/28/23 05:22 Immature Gran # (Auto) 0.02 K/uL (0.01-0.20) 02/28/23 05:22 Polychromasia 1+ 02/27/23 05:25 Sodium 133 mmol/L (136-145) L 03/03/23 06:15 Potassium 3.9 mmol/L (3.5-5.1) 03/03/23 06:15 Chloride 96 mmol/L (98-107) L 03/03/23 06:15 Carbon Dioxide 29 mmol/L (21-32) 03/03/23 06:15 Anion Gap 8 (3-11) 03/03/23 06:15 BUN 71 mg/dl (6-23) H 03/03/23 06:15 Creatinine 2.22 mg/dl (0.6-1.2) H 03/03/23 06:15 Est Cr Clr Drug Dosing 29.5 ml/min 03/03/23 06:15 Est GFR ( Amer) 27.0 ml/min 03/03/23 06:15 Est GFR (Non-Af Amer) 23.3 ml/min 03/03/23 06:15 BUN/Creatinine Ratio 32.0 (10-20) H 03/03/23 06:15 Glucose 169 mg/dl (70-99(Fasting)) H 03/03/23 06:15 POC Glucose 255 mg/dl (70-99) H 03/03/23 11:57 Estimat Average Glucose 226 mg/dl 02/26/23 05:36 Hemoglobin A1c 9.5 % (4.5-5.6) H 02/26/23 05:36 Calcium 9.3 mg/dl (8.6-10.3) 03/03/23 06:15 Magnesium 2.3 mg/dl (1.7-2.4) 03/03/23 06:15 Total Bilirubin 0.7 mg/dl (0.2-1.0) 02/27/23 05:25 AST 25 U/L (13-39) 02/27/23 05:25 ALT 16 U/L (7-52) 02/27/23 05:25 Alkaline Phosphatase 83 U/L (34-104) 02/27/23 05:25 Ammonia 43.0 umol/L (18-72) 02/26/23 05:36 Troponin I High Sens 18.5 pg/ml (0-14) H 02/25/23 15:47 Total Protein 6.4 gm/dl (6.0-8.3) 02/27/23 05:25 Albumin 3.1 gm/dl (3.4-5.0) L 02/27/23 05:25 Globulin 3.3 gm/dl (2.5-4.0) 02/27/23 05:25 Albumin/Globulin Ratio 0.9 (0.9-2) 02/27/23 05:25 Urine Color Yellow 02/25/23 18:38 Urine Appearance Clear (Clear) 02/25/23 18:38 Urine pH 7.0 (4.5-7.5) 02/25/23 18:38 Ur Specific Hunter 1.012 (1.000-1.030) 02/25/23 18:38 Urine Protein Trace (Negative) H 02/25/23 18:38 Urine Glucose (UA) 2+ (Negative) H 02/25/23 18:38 Urine Ketones Negative (Negative) 02/25/23 18:38 Urine Blood Trace (Negative) H 02/25/23 18:38 Urine Nitrite Negative (Negative) 02/25/23 18:38 Urine Bilirubin Negative (Negative) 02/25/23 18:38 Urine Urobilinogen Negative (Negative) 02/25/23 18:38 Ur Leukocyte Esterase Trace (Negative) H 02/25/23 18:38 Urine WBC (Auto) 1-5 /hpf (0-5) 02/25/23 18:38 Urine RBC (Auto) 0-4 /hpf (0-4) 02/25/23 18:38 U Hyaline Cast (Auto) 1-5 /lpf (0-5) 02/25/23 18:38 U Epithel Cells (Auto) 5-10 /lpf (0-5) H 02/25/23 18:38 Urine Bacteria (Auto) Negative (Negative) 02/25/23 18:38 Blood Type A Positive 03/03/23 11:25 Blood Type Recheck A Positive 02/25/23 16:10 Antibody Screen NEGATIVE 03/03/23 11:25 Crossmatch See Detail 03/03/23 11:25 Impressions Venous Doppler Study 02/25/23 16:49 ULTRASOUND BILATERAL LOWER EXTREMITY VENOUS CLINICAL HISTORY: Leg pain. COMPARISON STUDY: Bilateral lower extremity venous ultrasound dated 03/17/2022. TECHNIQUE: Real-time, grayscale, and color Doppler sonography of the deep veins of the right and left lower extremity was performed from the inguinal crease to the calf. Compression and augmentation were utilized. FINDINGS: There is no sonographic evidence of deep venous thrombosis identified in the right or left lower extremity. The common femoral, superficial femoral, and popliteal veins are patent and normally compressible bilaterally. The greater saphenous vein and the profunda femoris vein at the junction with the common femoral vein are clear in both legs. The visualized calf veins are patent bilaterally. IMPRESSION: There is no sonographic evidence of deep venous thrombosis identified in the right or left lower extremity. ACT 112: Negative or not required by law. Electronically signed by: Felipe Aguirre M.D. 02/25/2023 9:51 PM Ordered Studies 02/25/23 16:49 US venous doppler LE Routine Diabetes Follow up Diabetes Follow-up Needed for HgbA1c >9% Hospital Course (1) Upper GI bleed: (2) 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: Patient came to the hospital for routine appointment; abdominal ultrasound showed trace ascites; paracentesis not performed. Patient reported dizziness and generalized weakness for last 2-3 days. Was sent to the ED for eval. JOYCE cirrhosis Upper GI bleed Gastric ulcers likely due to NSAIDs use Symptomatic anemia-POA H/O decompensated liver cirrhosis with ascites; obtains paracentesis every 6 weeks. Fecal occult positive in the ED S/P 1 unit of packed RBC transfusion S/P EGD on February 25, 2023:Normal esophagus. Portal hypertensive gastropathy. Non-bleeding gastric ulcers with no stigmata of bleeding. Biopsied. Normal examined duodenum. Patient admits to use Advil [id number] for chronic pain Plan to continue PPI twice a day for 3 months and then once daily Appreciate GI input Prior hospitalist discussed with GI regarding resumption of Eliquis restarted on 02/27/2023 Hemoglobin 7.9 today No recurrence of bleeding issues Renal function stable Resume torsemide at lower dose 20mg daily Continue spironolactone 100 mg daily Given symptomatic anemia, will transfuse 1 unit PRBC Plan to discharge home today Advised to follow-up with PCP with repeat blood work (3) Hypokalemia: Hypokalemia Mildly elevated bicarbonate levels--chronic Likely due to diuretics Repeat electrolytes as needed Nephrology following Continue spironolactone 100 mg daily, torsemide 20 mg daily Metolazone discontinued Continue potassium Chloride 20 mg BID BLAIRE on CKD stage III Cr 2.2 today Lisinopril, metformin will be discontinued permanently Appreciate nephrology Monitor renal function Avoid nephrotoxic agents as able Needs follow-up with nephrology upon discharge (4) 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 Has been off Eliquis for last 2 days Venous duplex bilateral lower extremity negative for DVT. Eliquis resumed. (5) Diabetes: H/o DM II Uncontrolled HbA1c 9.5 On metformin and insulin at home. Stop metformin indefinitely given the lower GFR. Continue Lantus, insulin sliding scale while hospitalized Plan to discharge on Lantus 25 units daily, NovoLog 10 units 3 times daily with meals Appreciate glycemic pharmacist help Plan Other conditions: Hypertension: Discontinued lisinopril. Monitor and adjust meds as needed Hyperlipidemia: continue rosuvastatin DVT Px: Apixaban Code Status Full Code Disposition Home Total Time Total Time Spent Total Time Spent (In Minutes): 65 minutes Discharge Plan Discharge Items Patient Disposition: Home - Self-Care Reason For Visit: UPPER GI BLEED Discharge Diagnosis: JOYCE cirrhosis Upper GI bleed Gastric ulcers likely due to NSAID (Diclofenac sodium) use Symptomatic anemia Hypokalemia Acute kidney injury on CKD stage III Uncontrolled diabetes mellitus Condition on Discharge: Fair Activity: Per Instructions section Exercise/Sports: Wait until after follow-up appointment Non-emergency contact: Primary Care Provider, Flat Bed Knitter and Neurologist Call non-emergency contact if: you have any medication questions, your symptoms worsen, your pain is concerning for you and you have a fever Follow-up/Referrals: Jonathan Rees MD [Primary Care Provider] - (Date & Time 03/08/2023 11:20 AM Provider Lidia Madden Department [facility] ) Diet: Carb Consistent or DM2 and Heart Healthy Addtl Attending Provider Instructions: Follow-up with your primary care physician Dr. Rees on 03/08/2023 11:20 AM Follow-up with your platform beater with repeat basic metabolic panel in 1-2 weeks Follow-up with your turf and grounds supervisor as recommended -- Continue Protonix 40 mg twice daily for 3 months and then take once daily --Do not take group of medications belonging to NSAIDs group -can worsen your renal function, increase your risk for bleeding, cause gastric ulcers List Of these medications includes but not limited to: Diclofenac Ibuprofen, Motrin, Advil Toradol,ketorolac Naproxen, Aleve, Naprosyn You can take Tylenol as needed for pain or fever When buying [id number] pain medications please consult with pharmacy if you are not sure regarding ingredients, as a lot of the pain medications have combination of NSAIDs and Tylenol. -- Given your uncontrolled diabetes mellitus, your Lantus dose is increased to 25 units daily and you are also started on NovoLog 10 units 3 times a day with meals. Discussed with your physician for further adjustment of medications as needed. Pending Studies at Discharge: No Stand-Alone Forms: My [facility] Apiphany, Smoking Cessation Medications and DC Order Prescriptions: New torsemide 20 mg Tablet 20 mg PO QAM Qty: 30 1RF spironolactone 100 mg Tablet 100 mg PO QAM Qty: 30 1RF ropinirole 0.25 mg Tablet 0.25 mg PO HS Qty: 30 0RF pantoprazole 40 mg Tablet,Delayed Release (Dr/Ec) 40 mg PO BID Qty: 60 2RF insulin aspart U-100 [Novolog FlexPen U-100 Insulin] 100 unit/mL (3 mL) insulin pen 10 unit subcut TIDM Qty: 15 1RF Continued albuterol sulfate 90 mcg/actuation HFA aerosol inhaler 2 puff INHALATION QID Eliquis 5 mg Tablet 5 mg PO Q12H Qty: 60 0RF Rx Instructions: PER PT "AM DOSE HELD FOR AMMIO THIS AM". cholecalciferol (vitamin D3) 25 mcg (1,000 unit) Capsule 1,000 unit PO QAM Qty: 20 0RF docusate sodium [Colace] 100 mg capsule 100 mg PO DIRECTED PRN (Reason: Constipation) albuterol sulfate [Proventil] 2.5 mg /3 mL (0.083 %) Solution For Nebulization 2.5 mg INHALATION DIRECTED PRN (Reason: Shortness Of Breath Or Wheezing) tramadol 50 mg Tablet 50 mg PO Q6H PRN (Reason: Pain) rosuvastatin 5 mg Tablet 5 mg PO DAILY Bengay Greaseless 15-10 % Cream 1 applic TOPICAL BID PRN (Reason: Pain) Changed potassium chloride 20 mEq Tablet,Er Particles/Crystals 20 meq PO BID Qty: 60 0RF insulin glargine [Lantus Solostar U-100 Insulin] 100 unit/mL (3 mL) insulin pen 25 unit SUBCUT QAM Qty: 15 1RF Discontinued metformin 500 mg tablet 500 mg PO BIDM metolazone 5 mg Tablet 5 mg PO QAM Qty: 30 0RF torsemide 100 mg tablet See Rx Instructions .ROUTE .COMPLEX Rx Instructions: TAKES 100 MG--BID--ON MON, WED & FRI, THEN 100 MG-- DAILY-- ON SUN, , TH & SAT. lisinopril 5 mg tablet 5 mg PO DAILY Rx Instructions: PER PT "JUST PICKED UP TODAY, DID NOT START YET". diclofenac sodium 1 % gel 2 g TOPICAL BID PRN (Reason: Pain) Discharge Orders: Discharge Order (Routine); Ordered 03/03/23 Ordered By: Sj Gay/Other Patient Handouts: High Blood Sugar (Hyperglycemia), Managing Type 2 Diabetes Admission Data Admit Date/Time: 02/26/23 15:17 Attending Provider: Sj Mgcill Admit Provider: Tigre Dow Primary Care Provider: Jonathan Rees Other Providers: Tigre Dow ; Reese Biswas ; Jarocho Lofton ; Marizol López ; Erica Navarro ; Liliane Hook ; Negar Daniel ; Devon Reveles ; Lm Sutherland ; Jessú Guidry ; Gucci Paez ; Tigre Palmer ; Whit Kim ; Laquita Alexander ; Marissa Torres ; Deidra Mace ; Mer Vinson ; Guru Weller ; Nguyễn Casas ; Lillian Nolasco ; Jose Mckeon Jr ; Cali Brown Other Interventions: Discharge Summary Assessment (RN) Last Done: 02/26/23 13:28
== END 2023-03-03 18:42 | disposition home or self-care (01) | DRG 378 ==
LOC: 4W 14:23 → ED 14:23 → 4W 18:46 → SUATTDRO 02-26 15:17

== ENCOUNTER 2023-03-17 11:53 | Inpatient (IN) ==
[2023-03-17 12:48] LABS: Basophils # (auto) 0.06 K/uL (0.00-0.20); Basophils % (auto) 1.1 %; Eosinophils # (auto) 0.12 K/uL (0.00-0.50); Eosinophils % (auto) 2.1 %; Hematocrit (blood only) 30.2 % (37.0-47.0); Hemoglobin 10.1 g/dl (12.0-16.0); Immature Granulocytes # (auto) 0.02 K/uL (0.01-0.20); Immature Granulocytes % (auto) 0.4 %; Lymphocytes # (auto) 0.97 K/uL (1.20-3.40); Mean Corpuscular Hemoglobin 28.3 pg (25.0-34.0); Mean Corpuscular Hgb Conc 33.4 g/dL (32.0-36.0); Mean Corpuscular Volume 84.6 fL (80.0-100.0); Monocytes # (auto) 0.41 K/uL (0.11-0.59); Monocytes % (auto) 7.2 %; Neutrophils # (auto) 4.12 K/uL (1.40-6.50); Neutrophils % (auto) 72.2 %; Platelet Count 168 K/uL (130-400); RDW Coefficient of Variation 14.2 % (11.5-14.5); RDW Standard Deviation 43.9 fL (36.4-46.3); Red Blood Count 3.57 M/uL (4.20-5.40)
[2023-03-17 13:08] LABS: Alanine Aminotransferase 24 U/L (7-52); Albumin Globulin Ratio 0.9 (0.9-2); Albumin Level 3.6 gm/dl (3.4-5.0); Alkaline Phosphatase 144 U/L (34-104); Anion Gap 6 (3-11); Aspartate Aminotransferase 29 U/L (13-39); BUN Creatinine Ratio 21.2 (10-20); Bilirubin,Total 0.8 mg/dl (0.2-1.0); Blood Urea Nitrogen 46 mg/dl (6-23); Calcium 9.4 mg/dl (8.6-10.3); Carbon Dioxide 28 mmol/L (21-32); Chloride 98 mmol/L (98-107); Est GFR (African American) 27.8 ml/min; Globulin 4.1 gm/dl (2.5-4.0); Glucose 205 mg/dl (70-99(Fasting)); Potassium 4.5 mmol/L (3.5-5.1); Sodium 132 mmol/L (136-145); Total Protein 7.7 gm/dl (6.0-8.3)
--- NOTE | 2023-03-17 13:53 | XRay Report ---
XR chest 1V portable HISTORY: Shortness of breath. COMPARISON: Chest 03/25/2022. FINDINGS: There are low lung volumes. No focal lung consolidations to suggest a pneumonia. No evidenc e for pulmonary edema. The cardiac silhouette remains borderline enlarged. No pleural effusions. No p neumothorax. There are calcifications within the aortic knob. IMPRESSION: No acute process. ACT 112: Negative or not required by law. Electronically signed by: Abe Florentino M.D. 03/17/2023 1:51 PM
--- NOTE | 2023-03-17 14:05 | Emergency Department Note ---
Impression & Plan Stable burst fracture of T8 vertebra, Liver cirrhosis secondary to OLVERA, Back pain, thoracic, CKD (chronic kidney disease) ED Provider Note NAME: DESIREE VÁSQUEZ AGE: 62 SEX: F ARRIVES VIA: Walk-In INFORMANT: Patient ED PROVIDER(S): Kevin Bañuelos MD CHIEF COMPLAINT: Back pain PLAN: Disposition: Admit MEDICAL DECISION MAKING: The patient is a pleasant 62-year-old woman with a past medical history of Olvera cirrhosis, CKD, type 2 diabetes, asthma, history of DVT/PE on Eliquis with recent admission to this facility from 03/02-03/03 for fluid retention and cirrhosis with suspected GI bleed but no active GI bleeding on endoscopy presents emergency department for worsening mid back pain over the past week in the setting of having fluctuations of similar pain over the past year or more. She was seen for a fall approximately a year ago and denies having any falls since then but has had fluctuations in her back pain. She denies any fevers, chills, cough, congestion. She does feel short of breath from her pain. She denies any burning with urination or blood in her urine. Of note, the patient did arrive to emergency department during time of high volume, acuity and prolonged emergency department waiting times. Critical pathways initiated from triage. On my evaluation the patient is uncomfortable no acute distress, afebrile with stable vital signs. The patient has mild tenderness of the mid to lower thoracic region without midline tenderness to palpation or step-offs. She has normal strength of bilateral lower extremities though some back pain with hip flexion. Reflexes within normal limits. WBC and platelets within normal limits. H/H 10.1/30.2, improved from prior. INR 1.3. Chemistry without metabolic acidosis. Creatinine 2.1, similar to prior range values in the setting of CKD. Electrolytes and LFTs unremarkable. High-sensitivity troponin within normal limits. BNP within normal limits. UA without evidence of infection. CT of the chest and abdomen pelvis were performed and demonstrate suspected subacute-chronic burst fracture of the vertebral plana at T8 8 with 4 mm of retropulsion which is new from March 17, 2022. Findings were reviewed with the patient and she does agree with plan for admission for pain control and further evaluation. Case was discussed with orthopedic spine on-call, Dr. Talavera. He will be available for inpatient team consultation. [facility], with Dr. Ilene [facility] who will evaluate the patient for admission. Triage Nursing notes reviewed and agree them. Prior/outside medical records reviewed Vital Signs: reviewed Differential diagnosis: Musculoskeletal, disc herniation, fracture, metastatic disease, cord compression, discitis, sciatica, cauda equina, infection, aortic disease, renal colic, gastrointestinal, as well as other pathologies. ER treatment provided: See below. Diagnostics interpreted by me: ECG: Normal sinus rhythm, 80 bpm, no ectopy, no overt ST elevation or depression, QTc 424, QRS 66. Likely lead placement artifact Cardiac Monitoring: An order for continuous cardiac monitoring was placed and demonstrated Normal sinus rhythm, 80 bpm, no ectopy. Laboratory studies: See below Imaging studies: See below Consultation(s): Dr. Talavera, orthopedic spine Case was [facility], with Dr. Ilene barrera who will evaluate the patient for admission. HPI: The patient is a pleasant 62-year-old woman with a past medical history of Olvera cirrhosis, CKD, type 2 diabetes, asthma, history of DVT/PE on Eliquis with recent admission to this facility from 03/02-03/03 for fluid retention and cirrhosis with suspected GI bleed but no active GI bleeding on endoscopy presents emergency department for worsening mid back pain over the past week in the setting of having fluctuations of similar pain over the past year or more. She was seen for a fall approximately a year ago and denies having any falls since then but has had fluctuations in her back pain. She denies any fevers, chills, cough, congestion. She does feel short of breath from her pain. She denies any burning with urination or blood in her urine. ROS: See above HPI for pertinent positives & negatives. A total of 10 systems reviewed and were otherwise negative. VITALS:See Below PHYSICAL EXAMINATION: GENERAL: Awake, alert, uncomfortable-appearing, in no distress, BMI 32.6. HENT: Normocephalic, atraumatic. Oropharynx unremarkable. EYES: Normal conjunctiva. Sclera non-icteric. NECK: Supple. No nuchal rigidity. FROM. No JVD. RESPIRATORY: Clear to auscultation. CARDIAC: Regular rate, normal rhythm. Extremities warm and well perfused. Pulses equal. ABDOMEN: Soft, non-distended. No tenderness to palpation. No rebound or guarding. No masses. RECTAL: Deferred. MUSCULOSKELETAL: Chest examination reveals no tenderness. Mild tenderness of the mid to lower thoracic region without midline tenderness to palpation or step- offs. There is no CVA tenderness to palpation. No joint edema. LOWER EXTREMITIES: Calves are equal size bilaterally and non-tender. No edema. No discoloration. NEURO: Normal sensorium. No sensory or motor deficits noted. Reflex within normal limits. Normal strength of bilateral lower extremities though back pain with hip flexion. SKIN: No rash or jaundice noted. Kevin Bañuelos MD Past Med/Surg History Medical History BLAIRE (acute kidney injury) Asthma Diabetes DVT (deep venous thrombosis) Fall Fall Hepatic cirrhosis Left rib fracture Rib fractures UTI (urinary tract infection) Surgical History History of breast biopsy LEFT BREAST History of colonoscopy Hx of cholecystectomy Family History Mother Hypertension Father Hypertension COPD (chronic obstructive pulmonary disease) Social History Smoking Status: Never smoker Second Hand Exposure: No; Do You Dip or Chew Tobacco: No; Hx Alcohol Use: No Hx Substance Use: No Preferred Language: Maldivian Communication Ability: Effective 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 Beliefs That Will Affect Care: None marital status: Single Current Living Situation: Parent Current Living Situation Comment: with Mother Feels Safe at Home: Yes Assistive Devices: Cane and Walker Allergies Allergies Allergy/AdvReac Type Severity Reaction Status Date / Time morphine AdvReac Intermediate Vomiting Verified 02/26/23 12:24 Home Meds Home Medications Medication Instructions Recorded Confirmed albuterol sulfate 90 mcg/actuation 2 puff inhalation QID 01/21/22 03/17/23 aerosol inhaler docusate sodium 100 mg capsule 100 mg PO DAILY 05/15/22 03/17/23 (Colace) albuterol sulfate 2.5 mg/3 mL 2.5 mg inhalation DIRECTED PRN 02/25/23 03/17/23 (0.083 %) solution for nebulization Shortness Of Breath Or Wheezing methyl salicylate 15 %-menthol 10 1 applic topical BID PRN Pain 02/25/23 0 03/17/23 % topical cream rosuvastatin 5 mg tablet 5 mg PO DAILY 02/25/23 03/17/23 tramadol 50 mg tablet 50 mg PO Q6H PRN Pain 02/25/23 03/17/23 pantoprazole 40 mg tablet,delayed 40 mg PO AMHS 03/17/23 03/17/23 release Previous Rx's Medication Instructions Recorded apixaban 5 mg tablet (Eliquis) 5 mg PO Q12H #60 tabs 04/14/22 cholecalciferol (vitamin D3) 25 1,000 unit PO QAM #20 caps 04/14/22 mcg (1,000 unit) capsule insulin aspart U-100 100 unit/mL 10 unit (0.1 mL) subcut TIDM #15 mL 03/03/23 (3 mL) subcutaneous pen (Novolog FlexPen U-100 Insulin aspart) insulin glargine 100 unit/mL (3 25 unit (0.25 mL) subcut QAM #15 mL 03/03/23 mL) subcutaneous pen (Lantus Solostar U-100 Insulin) potassium chloride 20 mEq 20 meq PO BID #60 tabs 03/03/23 tablet,extended release(part/cryst) ropinirole 0.25 mg tablet 0.25 mg PO HS #30 tabs 03/03/23 spironolactone 100 mg tablet 100 mg PO QAM #30 tabs 03/03/23 torsemide 20 mg tablet 20 mg PO QAM #30 tabs 03/03/23 Results & Data (ED) Vital Signs Vital Signs - 24 hr 03/17/23 12:09 03/17/23 13:21 03/17/23 15:21 Temperature 36.2 C L Temperature Source Temporal Artery Scan Pulse Rate 80 Pulse Rate [Apical] 77 76 Respiratory Rate 15 16 19 Respiratory Effort / Characteristics Non-Labored Respiratory Depth Respiratory Pattern Blood Pressure 128/83 Blood Pressure [Left Arm] 127/74 147/82 H Blood Pressure Mean 98 Blood Pressure Mean [Left Arm] 91 103 Pulse Oximetry 98 99 99 Oxygen Delivery Method Room Air Room Air Sepsis Recent Fever Within 48 Hours No Sepsis New/Unexplained Change in Mental Status N/A Sepsis Action Taken by Nursing No Action Required 03/17/23 17:45 03/17/23 19:00 Temperature Temperature Source Pulse Rate Pulse Rate [Apical] 84 87 Respiratory Rate 20 17 Respiratory Effort / Characteristics Non-Labored Spontaneous Respiratory Depth Normal Respiratory Pattern Regular Blood Pressure Blood Pressure [Left Arm] 138/85 138/85 Blood Pressure Mean Blood Pressure Mean [Left Arm] 102 102 Pulse Oximetry 97 95 Oxygen Delivery Method Room Air Room Air Sepsis Recent Fever Within 48 Hours Sepsis New/Unexplained Change in Mental Status Sepsis Action Taken by Nursing Laboratory Data Attestation: I reviewed the patient's lab results. 03/17/23 12:25 03/17/23 12:25 Lab Results 03/17/23 03/17/23 03/17/23 Range/Units 12:25 12:25 14:37 WBC 5.70 (4.8-10.8) K/ul RBC 3.57 L (4.20-5.40) M/uL Hgb 10.1 L (12.0-16.0) g/dl Hct 30.2 L (37.0-47.0) % MCV 84.6 (80.0-100.0) fL MCH 28.3 (25.0-34.0) pg MCHC 33.4 (32.0-36.0) g/dL RDW Std Deviation 43.9 (36.4-46.3) fL RDW Coeff of Samy 14.2 (11.5-14.5) % Plt Count 168 (130-400) K/uL MPV 10.0 (9.4-12.4) fL Immature Gran % (Auto) 0.4 % Neut % (Auto) 72.2 % Lymph % (Auto) 17.0 % Grimes % (Auto) 7.2 % Eos % (Auto) 2.1 % Baso % (Auto) 1.1 % Neut # (Auto) 4.12 (1.40-6.50) K/uL Lymph # (Auto) 0.97 L (1.20-3.40) K/uL Grimes # (Auto) 0.41 (0.11-0.59) K/uL Eos # (Auto) 0.12 (0.00-0.50) K/uL Baso # (Auto) 0.06 (0.00-0.20) K/uL Immature Gran # (Auto) 0.02 (0.01-0.20) K/uL PT 14.0 H (9.0-12.0) Seconds INR 1.3 H (0.9-1.1) Sodium 132 L (136-145) mmol/L Potassium 4.5 (3.5-5.1) mmol/L Chloride 98 (98-107) mmol/L Carbon Dioxide 28 (21-32) mmol/L Anion Gap 6 (3-11) BUN 46 H (6-23) mg/dl Creatinine 2.17 H (0.6-1.2) mg/dl Est Cr Clr Drug Dosing Not Reportable Est GFR ( Amer) 27.8 ml/min Est GFR (Non-Af Amer) 24.0 ml/min BUN/Creatinine Ratio 21.2 H (10-20) Glucose 205 H (70-99(Fasting)) mg/dl Calcium 9.4 (8.6-10.3) mg/dl Magnesium (1.7-2.4) mg/dl Total Bilirubin 0.8 (0.2-1.0) mg/dl Direct Bilirubin (0-0.2) mg/dl AST 29 (13-39) U/L ALT 24 (7-52) U/L Alkaline Phosphatase 144 H (34-104) U/L Troponin I High Sens (0-14) pg/ml B-Natriuretic Peptide (0-100) pg/ml Total Protein 7.7 (6.0-8.3) gm/dl Albumin 3.6 (3.4-5.0) gm/dl Globulin 4.1 H (2.5-4.0) gm/dl Albumin/Globulin Ratio 0.9 (0.9-2) Urine Color Urine Appearance (Clear) Urine pH (4.5-7.5) Ur Specific [place] (1.000-1.030) Urine Protein (Negative) Urine Glucose (UA) (Negative) Urine Ketones (Negative) Urine Blood (Negative) Urine Nitrite (Negative) Urine Bilirubin (Negative) Urine Urobilinogen (Negative) Ur Leukocyte Esterase (Negative) 03/17/23 03/17/23 03/17/23 Range/Units 14:37 14:37 15:23 WBC (4.8-10.8) K/ul RBC (4.20-5.40) M/uL Hgb (12.0-16.0) g/dl Hct (37.0-47.0) % MCV (80.0-100.0) fL MCH (25.0-34.0) pg MCHC (32.0-36.0) g/dL RDW Std Deviation (36.4-46.3) fL RDW Coeff of Samy (11.5-14.5) % Plt Count (130-400) K/uL MPV (9.4-12.4) fL Immature Gran % (Auto) % Neut % (Auto) % Lymph % (Auto) % Grimes % (Auto) % Eos % (Auto) % Baso % (Auto) % Neut # (Auto) (1.40-6.50) K/uL Lymph # (Auto) (1.20-3.40) K/uL Grimes # (Auto) (0.11-0.59) K/uL Eos # (Auto) (0.00-0.50) K/uL Baso # (Auto) (0.00-0.20) K/uL Immature Gran # (Auto) (0.01-0.20) K/uL PT (9.0-12.0) Seconds INR (0.9-1.1) Sodium (136-145) mmol/L Potassium (3.5-5.1) mmol/L Chloride (98-107) mmol/L Carbon Dioxide (21-32) mmol/L Anion Gap (3-11) BUN (6-23) mg/dl Creatinine (0.6-1.2) mg/dl Est Cr Clr Drug Dosing Est GFR ( Amer) ml/min Est GFR (Non-Af Amer) ml/min BUN/Creatinine Ratio (10-20) Glucose (70-99(Fasting)) mg/dl Calcium (8.6-10.3) mg/dl Magnesium 2.0 (1.7-2.4) mg/dl Total Bilirubin (0.2-1.0) mg/dl Direct Bilirubin 0.1 (0-0.2) mg/dl AST (13-39) U/L ALT (7-52) U/L Alkaline Phosphatase (34-104) U/L Troponin I High Sens 6.0 (0-14) pg/ml B-Natriuretic Peptide 69 (0-100) pg/ml Total Protein (6.0-8.3) gm/dl Albumin (3.4-5.0) gm/dl Globulin (2.5-4.0) gm/dl Albumin/Globulin Ratio (0.9-2) Urine Color Yellow Urine Appearance Clear (Clear) Urine pH 7.0 (4.5-7.5) Ur Specific [place] 1.007 (1.000-1.030) Urine Protein Negative (Negative) Urine Glucose (UA) Negative (Negative) Urine Ketones Negative (Negative) Urine Blood Negative (Negative) Urine Nitrite Negative (Negative) Urine Bilirubin Negative (Negative) Urine Urobilinogen Negative (Negative) Ur Leukocyte Esterase Negative (Negative) Administered Medications Discontinued Medications Albuterol (Albut/Ipratrop 3mg/0.5mg Neb 3 Ml Vial) 3 ml NEB NOW STA; Protocol Stop: 03/17/23 15:12 Last Admin: 03/17/23 15:17 Dose: 3 ml Documented By: ML Dexamethasone Sodium Phosphate (DexamethasonePf 10 Mg/Ml Vial) 10 mg IV NOW ONE Stop: 03/17/23 15:12 Last Admin: 03/17/23 15:17 Dose: 10 mg Documented By: ML Morphine Sulfate (Morphine Sulfate 2 Mg/Ml Carp) 2 mg IV NOW STA Stop: 03/17/23 18:42 Last Admin: 03/17/23 18:48 Dose: 2 mg Documented By: ML Ondansetron HCl (Ondansetron Inj 2 Mg/Ml 2 Ml Vial) 4 mg IV NOW STA Stop: 03/17/23 18:42 Last Admin: 03/17/23 18:48 Dose: 4 mg Documented By: ML Imaging Data Radiologist's Impression: Chest X-Ray 03/17/23 12:13 XR chest 1V portable HISTORY: Shortness of breath. COMPARISON: Chest 03/25/2022. FINDINGS: There are low lung volumes. No focal lung consolidations to suggest a pneumonia. No evidence for pulmonary edema. The cardiac silhouette remains borderline enlarged. No pleural effusions. No pneumothorax. There are calcifications within the aortic knob. IMPRESSION: No acute process. ACT 112: Negative or not required by law. Electronically signed by: Abe Florentino M.D. 03/17/2023 1:51 PM Abdomen/Pelvis CT 03/17/23 15:[address] WITHOUT CONTRAST CT DOSE: 2359.12 mGy.cm HISTORY: Back pain, shortness of breath, cirrhosis TECHNIQUE: Multiaxial CT images of the abdomen and pelvis were performed without contrast. A dose lowering technique was utilized adhering to the principles of ALARA. COMPARISON STUDY: Abdomen and pelvis CT 03/17/2022. FINDINGS: The lung bases will be reported on the same day chest CTA. No pneumoperitoneum. No pneumatosis. No change in the chronic moderate to severe superior endplate compression deformity at L4. Severe compression deformity at T8 is new from the prior study. This is age indeterminate but favors a subacute to chronic compression deformity given the mild paravertebral edema and sclerosis. Moderate body wall edema is noted. Prior cholecystectomy. The cirrhotic liver and mild splenomegaly persists. The unenhanced pancreas and adrenal glands are unremarkable. There are few punctate left renal calculi. No ureteral calculi. No hydronephrosis. Normal right kidney. Mild periportal lymphadenopathy, unchanged. This is likely due to the patient's cirrhosis. Calcified retroperitoneal and pelvic lymph nodes remain unchanged. No lymphadenopathy identified. The bladder, uterus, bilateral adnexa are within no rmal limits. Small amount of ascites has improved. Normal caliber abdominal aorta. Suboptimal evaluation for bowel pathology due to the lack of intravenous and oral contrast. However, there is no definite bowel wall thickening or obstruction. Colonic diverticulosis. No evidence for acute diverticulitis. IMPRESSION: 1. Severe compression deformity at T8 is new from the prior study. This is age indeterminate but favors a subacute to chronic compression deformity given the mild paravertebral edema and sclerosis. 2. Cirrhotic liver with splenomegaly and a small amount of ascites. 3. No definite bowel wall thickening or obstruction. 4. Left-sided nephrolithiasis. No ureteral stones. No hydronephrosis. 5. Moderate body wall edema. 6. Additional findings as described above. ACT 112: Negative or not required by law. Electronically signed by: Abe Florentino M.D. 03/17/2023 4:[address] 03/17/23 15:06 CT chest diagnostic wo con CLINICAL HISTORY: 62 years-old Female with Back pain, sob, cirrhosis. Acute shortness of breath with stenosis TECHNIQUE: Multiaxial CT images of the chest were performed without contrast. A dose lowering technique was utilized adhering to the principles of ALARA. COMPARISON: CT abdomen and pelvis of same day, chest CT 03/17/2022 FINDINGS: 11 mm hypodense left thyroid nodule. Borderline enlarged mediastinal lymph nodes include cardiophrenic lymph nodes measuring up to 9 mm. Decreased attenuation of the cardiac blood pool suggestive of anemia. Mild cardiomegaly with extensive coronary artery calcifications. No pneumothorax, pleural effusion, airspace consolidation or pulmonary edema. Mild subsegmental bibasilar atelectasis. No suspicious pulmonary nodules or masses. Central airways are patent. Cirrhosis with small volume of upper abdominal ascites. Indeterminate nodular focus posterior to the right hepatic lobe on image 169 measuring 6 mm. Sp lenomegaly. Cholecystectomy. Mildly enlarged gastrohepatic and carlos hepatis lymph nodes may be related to underlying chronic liver disease. 3 mm nonobstructing calculus of the superior pole left kidney. Mild generalized body wall edema. No acute fracture identified. Chronic rib fractures. Mild chronic T4 compression deformity. Chronic T3 compression deformity. Mild age-indeterminate superior endplate compression at T2 without retropulsion. T8 burst fracture with vertebral plana and 4 mm retropulsion is new from prior. IMPRESSION: 1. Cardiomegaly with mild subsegmental bibasilar atelectasis. 2. Cirrhosis with stigmata of portal venous hypertension including splenomegaly with small volume of abdominal ascites. 3. Left nephrolithiasis. 4. Age-indeterminate however likely chronic burst fracture/vertebral plana at T8 with 4 mm retropulsion is new from 03/17/2022. 5. Subtle age indeterminate superior endplate compression deformity at T2 without retropulsion. ACT 112: Negative or not required by law. Electronically signed by: Alfred Adames M.D. 03/17/2023 4:05 PM Discharge Plan Visit Data Chief Complaint: Back Injury/Pain Stated Complaint: LEG SWELLING, BACK PAIN, SOB ED Provider: Kevin Bañuelos Discharge Problem: Stable burst fracture of T8 vertebra, Liver cirrhosis secondary to OLVERA, Back pain, thoracic, CKD (chronic kidney disease) Forms Stand Alone Forms: [facility] Prescriptions Prescriptions: No Action albuterol sulfate 90 mcg/actuation HFA aerosol inhaler 2 puff INHALATION QID Eliquis 5 mg Tablet 5 mg PO Q12H Qty: 60 0RF cholecalciferol (vitamin D3) 25 mcg (1,000 unit) Capsule 1,000 unit PO QAM Qty: 20 0RF docusate sodium [Colace] 100 mg capsule 100 mg PO DAILY albuterol sulfate 2.5 mg /3 mL (0.083 %) Solution For Nebulization 2.5 mg INHALATION DIRECTED PRN (Reason: Shortness Of Breath Or Wheezing) tramadol 50 mg Tablet 50 mg PO Q6H PRN (Reason: Pain) rosuvastatin 5 mg Tablet 5 mg PO DAILY methyl salicylate-menthol 15-10 % Cream 1 applic TOPICAL BID PRN (Reason: Pain) torsemide 20 mg Tablet 20 mg PO QAM Qty: 30 1RF spironolactone 100 mg Tablet 100 mg PO QAM Qty: 30 1RF ropinirole 0.25 mg Tablet 0.25 mg PO HS Qty: 30 0RF insulin aspart U-100 [Novolog FlexPen U-100 Insulin] 100 unit/mL (3 mL) insulin pen 10 unit subcut TIDM Qty: 15 1RF potassium chloride 20 mEq Tablet,Er Particles/Crystals 20 meq PO BID Qty: 60 0RF insulin glargine [Lantus Solostar U-100 Insulin] 100 unit/mL (3 mL) insulin pen 25 unit SUBCUT QAM Qty: 15 1RF pantoprazole 40 mg tablet,delayed release (DR/EC) 40 mg PO AMHS Referrals Referrals: Jonathan Rees MD [Primary Care Provider] -
[2023-03-17] MEDS ORDERED: dexAMETHasone**PF** 10 MG/ML VIAL IV ONE (15:11)
[2023-03-17] MEDS ORDERED: ALBUT/IPRATROP 3MG/0.5MG NEB 3 ML VIAL NEB STA (15:11)
[2023-03-17 15:13] LABS: Bilirubin Direct 0.1 mg/dl (0-0.2)
[2023-03-17 15:26] LABS: INR 1.3 (0.9-1.1)
[2023-03-17 15:40] LABS: Appearance Urine Clear (Clear); Bilirubin Urine Negative (Negative); Blood Urine Negative (Negative); Color Urine Yellow; Glucose Urine UA Negative (Negative); Ketones Urine Negative (Negative); Leukocyte Esterase Urine Negative (Negative); Nitrite Urine Negative (Negative); Protein Urine Negative (Negative); Specific Gravity Urine 1.007 (1.000-1.030); Urobilinogen Urine Negative (Negative)
--- NOTE | 2023-03-17 16:07 | CT Scan Report ---
CT chest diagnostic wo con CLINICAL HISTORY: 62 years-old Female with Back pain, sob, cirrhosis. Acute shortness of breath with stenosis TECHNIQUE: Multiaxial CT images of the chest were performed without contrast. A dose lowering techni que was utilized adhering to the principles of ALARA. COMPARISON: CT abdomen and pelvis of same day, chest CT 03/17/2022 FINDINGS: 11 mm hypodense left thyroid nodule. Borderline enlarged mediastinal lymph nodes include ca rdiophrenic lymph nodes measuring up to 9 mm. Decreased attenuation of the cardiac blood pool suggest delia of anemia. Mild cardiomegaly with extensive coronary artery calcifications. No pneumothorax, ple ural effusion, airspace consolidation or pulmonary edema. Mild subsegmental bibasilar atelectasis. No suspicious pulmonary nodules or masses. Central airways are patent. Cirrhosis with small volume of upper abdominal ascites. Indeterminate nodular focus posterior to the right hepatic lobe on image 169 measuring 6 mm. Splenomegaly. Cholecystectomy. Mildly enlarged gastro hepatic and carlos hepatis lymph nodes may be related to underlying chronic liver disease. 3 mm nonobs tructing calculus of the superior pole left kidney. Mild generalized body wall edema. No acute fractu re identified. Chronic rib fractures. Mild chronic T4 compression deformity. Chronic T3 compression d eformity. Mild age-indeterminate superior endplate compression at T2 without retropulsion. T8 burst f racture with vertebral plana and 4 mm retropulsion is new from prior. IMPRESSION: 1. Cardiomegaly with mild subsegmental bibasilar atelectasis. 2. Cirrhosis with stigmata of portal venous hypertension including splenomegaly with small volume of abdominal ascites. 3. Left nephrolithiasis. 4. Age-indeterminate however likely chronic burst fracture/vertebral plana at T8 with 4 mm retropulsi on is new from 03/17/2022. 5. Subtle age indeterminate superior endplate compression deformity at T2 without retropulsion. ACT 112: Negative or not required by law. Electronically signed by: Alfred Adames M.D. 03/17/2023 4:05 PM
--- NOTE | 2023-03-17 16:14 | CT Scan Report ---
ABDOMEN AND PELVIS CT WITHOUT CONTRAST CT DOSE: 2359.12 mGy.cm HISTORY: Back pain, shortness of breath, cirrhosis TECHNIQUE: Multiaxial CT images of the abdomen and pelvis were performed without contrast. A dose lo wering technique was utilized adhering to the principles of ALARA. COMPARISON STUDY: Abdomen and pelvis CT 03/17/2022. FINDINGS: The lung bases will be reported on the same day chest CTA. No pneumoperitoneum. No pneumato sis. No change in the chronic moderate to severe superior endplate compression deformity at L4. Sever e compression deformity at T8 is new from the prior study. This is age indeterminate but favors a sub acute to chronic compression deformity given the mild paravertebral edema and sclerosis. Moderate bod y wall edema is noted. Prior cholecystectomy. The cirrhotic liver and mild splenomegaly persists. The unenhanced pancreas and adrenal glands are unremarkable. There are few punctate left renal calculi. No ureteral calculi. No hydronephrosis. Normal right kidney. Mild periportal lymphadenopathy, unchang ed. This is likely due to the patient's cirrhosis. Calcified retroperitoneal and pelvic lymph nodes r emain unchanged. No lymphadenopathy identified. The bladder, uterus, bilateral adnexa are within norm al limits. Small amount of ascites has improved. Normal caliber abdominal aorta. Suboptimal evaluatio n for bowel pathology due to the lack of intravenous and oral contrast. However, there is no definite bowel wall thickening or obstruction. Colonic diverticulosis. No evidence for acute diverticulitis. IMPRESSION: 1. Severe compression deformity at T8 is new from the prior study. This is age indeterminate but favo rs a subacute to chronic compression deformity given the mild paravertebral edema and sclerosis. 2. Cirrhotic liver with splenomegaly and a small amount of ascites. 3. No definite bowel wall thickening or obstruction. 4. Left-sided nephrolithiasis. No ureteral stones. No hydronephrosis. 5. Moderate body wall edema. 6. Additional findings as described above. ACT 112: Negative or not required by law. Electronically signed by: Abe Florentino M.D. 03/17/2023 4:11 PM
--- NOTE | 2023-03-17 18:24 | Electrocardiogram Report ---
Test Reason : Blood Pressure : / mmHG Vent. Rate : 080 BPM Atrial Rate : 080 BPM P-R Int : 136 ms QRS Dur : 066 ms QT Int : 368 ms P-R-T Axes : 031 039 -05 degrees QTc Int : 424 ms Poor data quality, interpretation may be adversely affected Normal sinus rhythm Low voltage QRS Cannot rule out Inferior infarct , age undetermined Cannot rule out Anterior infarct , age undetermined Abnormal ECG When compared with ECG of 25-FEB-2023 16:40, Suspect lead placement or contact issues Confirmed by Kurt Ireland ([id number]) on 03/17/2023 6:24:20 PM Referred By: Confirmed By:Kurt Ireland
[2023-03-17] MEDS ORDERED: ONDANSETRON INJ 2 MG/ML 2 ML VIAL IV STA (18:41)
[2023-03-17] MEDS ORDERED: MoRPHine SULFATE 2 MG/ML CARP IV STA (18:41)
[2023-03-17] MEDS ORDERED: ACETAMINOPHEN 500 MG TAB PO PRN (19:31)
--- NOTE | 2023-03-17 19:57 | History & Physical Report ---
Date of Service March 17, 2023 Assessment & Plan (1) Stable burst fracture of T8 vertebra: Plan: Unclear duration ARF on CKD hypertension, stable Hyperlipidemia on statin Rx history saddle PE on Eliquis DM 2 insulin requiring, suboptimal control as of recent hemoglobin A1c of 9.5 this month hx NAFLD cirrhosis, some ascites on imaging chronic anemia, hemoglobin better than baseline OBS [facility] spine consult Re: T8 burst fracture (ER provider already in touch with Dr. Talavera. He will evaluate patient tomorrow morning. Patient will need transfer to tertiary care center if surgery recommended given patient's multiple comorbidities as per Orthopedics.) Hold Eliquis for now in anticipation of procedure. IV heparin while Eliquis on hold. Monitor creatinine response to IV albumin Hold diuretics until creatinine back to baseline Nephrology consult if without improvement. Basal bolus insulin ISS BG goal 1 10-1 40, carb count coverage DVT prophylaxis. IV heparin while Eliquis on hold Full code Text document was generated using [employer] voice recognition software. It may contain grammatical or spelling errors. Kindly contact undersigned for clarification of any documentation item in question. History of Present Illness Chief Complaint: Back pain Primary Care Provider: Jonathan Rees MD History obtained from patient and records. Medical history significant for hypertension, hyperlipidemia, history saddle PE on Eliquis, DM 2 insulin requiring, NAFLD cirrhosis, CRI (baseline creatinine 1.9), chronic anemia (baseline hemoglobin 8-9). Recent confinement 2 weeks ago for UGIB. EGD showed portal hypertensive gastropathy and nonbleeding gastric ulcers attributed to OTC NSAID use.. Patient discharged on PPI course. Patient noted worsening mid back pain the last few days. Mid back pain radiating to both shoulders and low back. Leg weakness from pain as per patient. No recollection of recent trauma. No fever, no chills, no chest pain. Usual SOB on exertion. Patient not sure about fluid retention. 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 Allergies Allergy/AdvReac Type Severity Reaction Status Date / Time morphine AdvReac Intermediate Vomiting Verified 02/26/23 12:24 Home Medications Medication Instructions Recorded Confirmed Type albuterol sulfate 90 mcg/actuation 2 puff inhalation QID 01/21/22 03/17/23 History aerosol inhaler apixaban 5 mg tablet (Eliquis) 5 mg PO Q12H #60 tabs 04/14/22 03/17/23 Rx cholecalciferol (vitamin D3) 25 1,000 unit PO QAM #20 caps 04/14/22 03/17/23 Rx mcg (1,000 unit) capsule docusate sodium 100 mg capsule 100 mg PO DAILY PRN Constipation 05/15/22 03/17/23 History (Colace) albuterol sulfate 2.5 mg/3 mL 2.5 mg inhalation DIRECTED PRN 02/25/23 03/17/23 History (0.083 %) solution for nebulization Shortness Of Breath Or Wheezing methyl salicylate 15 %-menthol 10 1 applic topical BID PRN Pain 02/25/23 03/17/23 History % topical cream rosuvastatin 5 mg tablet 5 mg PO DAILY 02/25/23 03/17/23 History tramadol 50 mg tablet 50 mg PO Q6H PRN Pain 02/25/23 03/17/23 History insulin aspart U-100 100 unit/mL 10 unit (0.1 mL) subcut TIDM #15 mL 03/03/23 03/17/23 Rx (3 mL) subcutaneous pen (Novolog FlexPen U-100 Insulin aspart) insulin glargine 100 unit/mL (3 25 unit (0.25 mL) subcut QAM #15 mL 03/03/23 03/17/23 Rx mL) subcutaneous pen (Lantus Solostar U-100 Insulin) potassium chloride 20 mEq 20 meq PO BID #60 tabs 03/03/23 03/17/23 Rx tablet,extended release(part/cryst) ropinirole 0.25 mg tablet 0.25 mg PO HS #30 tabs 03/03/23 03/17/23 Rx spironolactone 100 mg tablet 100 mg PO QAM #30 tabs 03/03/23 03/17/23 Rx torsemide 20 mg tablet 20 mg PO QAM #30 tabs 03/03/23 03/17/23 Rx pantoprazole 40 mg tablet,delayed 40 mg PO AMHS 03/17/23 03/17/23 History release Past Med/Surg History Medical History BLAIRE (acute kidney injury) Asthma Diabetes DVT (deep venous thrombosis) Fall Fall Hepatic cirrhosis Left rib fracture Rib fractures UTI (urinary tract infection) Surgical History History of breast biopsy LEFT BREAST History of colonoscopy Hx of cholecystectomy Family History Mother Hypertension Father Hypertension COPD (chronic obstructive pulmonary disease) Social History Smoking Status: Never smoker Second Hand Exposure: No; Do You Dip or Chew Tobacco: No; Hx Alcohol Use: No Hx Substance Use: No Preferred Language: Bengali Communication Ability: Effective Agronomy Location Manager Required: No Beliefs That Will Affect Care: None marital status: Single Current Living Situation: Parent Current Living Situation Comment: with Mother Feels Safe at Home: Yes Assistive Devices: Cane and Walker Review of Systems Review of Systems: As per HPI, all other systems reviewed and negative Physical Exam Physical Exam: GENERAL: Comfortable, slightly anxious, obese, no respiratory distress SKIN: Pallor, warm HEENT: Pale palpebral conjunctivae, no ptosis, dry buccal mucosa NECK : Supple, short neck, no tenderness CHEST : Decreased breath sounds, no tenderness HEART : RRR, no obvious murmurs ABDOMEN: Some distention, nontender BACK : Mid back tenderness EXTREMITIES : Minimal LE swelling, no LE tenderness, no other conspicuous deformities noted NEUROLOGIC : Coherent, no facial asymmetry, no other gross focality Results & Data Results & Data Vital Signs (Past 12 Hours) Vital Signs Temp Pulse Pulse Resp BP BP Pulse Ox 03/17/23 19:00 87 17 138/85 95 03/17/23 17:45 84 20 138/85 97 03/17/23 15:21 76 19 147/82 H 99 03/17/23 13:21 77 16 127/74 99 03/17/23 12:09 36.2 C L 80 15 128/83 98 O2 Del Method 03/17/23 19:00 Room Air 03/17/23 17:45 Room Air 03/17/23 15:21 Room Air 03/17/23 13:21 03/17/23 12:09 Room Air Laboratory Results Laboratory Results WBC 5.70 K/ul (4.8-10.8) 03/17/23 12:25 RBC 3.57 M/uL (4.20-5.40) L 03/17/23 12:25 Hgb 10.1 g/dl (12.0-16.0) L 03/17/23 12:25 Hct 30.2 % (37.0-47.0) L 03/17/23 12:25 MCV 84.6 fL (80.0-100.0) 03/17/23 12: MCH 28.3 pg (25.0-34.0) 03/17/23 12: MCHC 33.4 g/dL (32.0-36.0) 03/17/23 12: RDW Std Deviation 43.9 fL (36.4-46.3) 03/17/23 12: RDW Coeff of Samy 14.2 % (11.5-14.5) 03/17/23 12: Plt Count 168 K/uL (130-400) 03/17/23 12: MPV 10.0 fL (9.4-12.4) 03/17/23 12:25 Immature Gran % (Auto) 0.4 % 03/17/23 12: Neut % (Auto) 72.2 % 03/17/23 12:25 Lymph % (Auto) 17.0 % 03/17/23 12:25 [place] % (Auto) 7.2 % 03/17/23 12:25 Eos % (Auto) 2.1 % 03/17/23 12: Baso % (Auto) 1.1 % 03/17/23 12: Neut # (Auto) 4.12 K/uL (1.40-6.50) 03/17/23 12: Lymph # (Auto) 0.97 K/uL (1.20-3.40) L 03/17/23 12:25 [place] # (Auto) 0.41 K/uL (0.11-0.59) 03/17/23 12: Eos # (Auto) 0.12 K/uL (0.00-0.50) 03/17/23 12: Baso # (Auto) 0.06 K/uL (0.00-0.20) 03/17/23 12: Immature Gran # (Auto) 0.02 K/uL (0.01-0.20) 03/17/23 12:25 PT 14.0 Seconds (9.0-12.0) H 03/17/23 14:37 INR 1.3 (0.9-1.1) H 03/17/23 14:37 Sodium 132 mmol/L (136-145) L 03/17/23 12:25 Potassium 4.5 mmol/L (3.5-5.1) 03/17/23 12:25 Chloride 98 mmol/L (98-107) 03/17/23 12:25 Carbon Dioxide 28 mmol/L (21-32) 03/17/23 12:25 Anion Gap 6 (3-11) 03/17/23 12:25 BUN 46 mg/dl (6-23) H 03/17/23 12:25 Creatinine 2.17 mg/dl (0.6-1.2) H 03/17/23 12:25 Est Cr Clr Drug Dosing Not Reportable 03/17/23 12:25 Est GFR ( Amer) 27.8 ml/min 03/17/23 12:25 Est GFR (Non-Af Amer) 24.0 ml/min 03/17/23 12:25 BUN/Creatinine Ratio 21.2 (10-20) H 03/17/23 12:25 Glucose 205 mg/dl (70-99(Fasting)) H 03/17/23 12:25 Calcium 9.4 mg/dl (8.6-10.3) 03/17/23 12:25 Magnesium 2.0 mg/dl (1.7-2.4) 03/17/23 14:37 Total Bilirubin 0.8 mg/dl (0.2-1.0) 03/17/23 12:25 Direct Bilirubin 0.1 mg/dl (0-0.2) 03/17/23 14:37 AST 29 U/L (13-39) 03/17/23 12:25 ALT 24 U/L (7-52) 03/17/23 12:25 Alkaline Phosphatase 144 U/L (34-104) H 03/17/23 12:25 Troponin I High Sens 6.0 pg/ml (0-14) 03/17/23 14:37 B-Natriuretic Peptide 69 pg/ml (0-100) 03/17/23 14:37 Total Protein 7.7 gm/dl (6.0-8.3) 03/17/23 12:25 Albumin 3.6 gm/dl (3.4-5.0) 03/17/23 12:25 Globulin 4.1 gm/dl (2.5-4.0) H 03/17/23 12:25 Albumin/Globulin Ratio 0.9 (0.9-2) 03/17/23 12:25 Urine Color Yellow 03/17/23 15:23 Urine Appearance Clear (Clear) 03/17/23 15: Urine pH 7.0 (4.5-7.5) 03/17/23 15:23 Ur Specific [place] 1.007 (1.000-1.030) 03/17/23 15: Urine Protein Negative (Negative) 03/17/23 15: Urine Glucose (UA) Negative (Negative) 03/17/23 15: Urine Ketones Negative (Negative) 03/17/23 15: Urine Blood Negative (Negative) 03/17/23 15: Urine Nitrite Negative (Negative) 03/17/23 15: Urine Bilirubin Negative (Negative) 03/17/23 15: Urine Urobilinogen Negative (Negative) 03/17/23 15:23 Ur Leukocyte Esterase Negative (Negative) 03/17/23 15:23 Impressions Chest X-Ray 03/17/23 12:13 XR chest 1V portable HISTORY: Shortness of breath. COMPARISON: Chest 03/25/2022. FINDINGS: There are low lung volumes. No focal lung consolidations to suggest a pneumonia. No evidence for pulmonary edema. The cardiac silhouette remains borderline enlarged. No pleural effusions. No pneumothorax. There are calcifications within the aortic knob. IMPRESSION: No acute process. ACT 112: Negative or not required by law. Electronically signed by: Abe Florentino M.D. 03/17/2023 1:51 PM Abdomen/Pelvis CT 03/17/23 15:[address] WITHOUT CONTRAST CT DOSE: 2359.12 mGy.cm HISTORY: Back pain, shortness of breath, cirrhosis TECHNIQUE: Multiaxial CT images of the abdomen and pelvis were performed without contrast. A dose lowering technique was utilized adhering to the principles of ALARA. COMPARISON STUDY: Abdomen and pelvis CT 03/17/2022. FINDINGS: The lung bases will be reported on the same day chest CTA. No pneumoperitoneum. No pneumatosis. No change in the chronic moderate to severe superior endplate compression deformity at L4. Severe compression deformity at T8 is new from the prior study. This is age indeterminate but favors a subacute to chronic compression deformity given the mild paravertebral edema and sclerosis. Moderate body wall edema is noted. Prior cholecystectomy. The cirrhotic liver and mild splenomegaly persists. The unenhanced pancreas and adrenal glands are unremarkable. There are few punctate left renal calculi. No ureteral calculi. No hydronephrosis. Normal right kidney. Mild periportal lymphadenopathy, unchanged. This is likely due to the patient's cirrhosis. Calcified retroperitoneal and pelvic lymph nodes remain unchanged. No lym phadenopathy identified. The bladder, uterus, bilateral adnexa are within normal limits. Small amount of ascites has improved. Normal caliber abdominal aorta. Suboptimal evaluation for bowel pathology due to the lack of intravenous and oral contrast. However, there is no definite bowel wall thickening or obstruction. Colonic diverticulosis. No evidence for acute diverticulitis. IMPRESSION: 1. Severe compression deformity at T8 is new from the prior study. This is age indeterminate but favors a subacute to chronic compression deformity given the mild paravertebral edema and sclerosis. 2. Cirrhotic liver with splenomegaly and a small amount of ascites. 3. No definite bowel wall thickening or obstruction. 4. Left-sided nephrolithiasis. No ureteral stones. No hydronephrosis. 5. Moderate body wall edema. 6. Additional findings as described above. ACT 112: Negative or not required by law. Electronically signed by: Abe Florentino M.D. 03/17/2023 4:[address] 03/17/23 15:06 CT chest diagnostic wo con CLINICAL HISTORY: 62 years-old Female with Back pain, sob, cirrhosis. Acute shortness of breath with stenosis TECHNIQUE: Multiaxial CT images of the chest were performed without contrast. A dose lowering technique was utilized adhering to the principles of ALARA. COMPARISON: CT abdomen and pelvis of same day, chest CT 03/17/2022 FINDINGS: 11 mm hypodense left thyroid nodule. Borderline enlarged mediastinal lymph nodes include cardiophrenic lymph nodes measuring up to 9 mm. Decreased attenuation of the cardiac blood pool suggestive of anemia. Mild cardiomegaly with extensive coronary artery calcifications. No pneumothorax, pleural effusion, airspace consolidation or pulmonary edema. Mild subsegmental bibasilar atelectasis. No suspicious pulmonary nodules or masses. Central airways are patent. Cirrhosis with small volume of upper abdominal ascites. Indeterminate nodular focus posterior to the right hepatic lobe on image 169 measuring 6 mm. Splenomegaly. Cholecystectomy. Mildly enlarged gastrohepatic and carlos hepatis lymph nodes may be related to underlying chronic liver disease. 3 mm nonobstructing calculus of the superior pole left kidney. Mild generalized body wall edema. No acute fracture identified. Chronic rib fractures. Mild chronic T4 compression deformity. Chronic T3 compression deformity. Mild age-indeterminate superior endplate compression at T2 without retropulsion. T8 burst fracture with vertebral plana and 4 mm retropulsion is new from prior. IMPRESSION: 1. Cardiomegaly with mild subsegmental bibasilar atelectasis. 2. Cirrhosis with stigmata of portal venous hypertension including splenomegaly with small volume of abdominal ascites. 3. Left nephrolithiasis. 4. Age-indeterminate however likely chronic burst fracture/vertebral plana at T8 with 4 mm retropulsion is new from 03/17/2022. 5. Subtle age indeterminate superior endplate compression deformity at T2 without retropulsion. ACT 112: Negative or not required by law. Electronically signed by: Alfred Adames M.D. 03/17/2023 4:05 PM Diagnostic Findings EKG as per my interpretation :Rate 80, NSR, normal axis, inferior infarct, T wave abnormalities inferior and anterolateral leads
[2023-03-17] MEDS ORDERED: ALBUMIN 25% 25 GM/100 ML VIAL IV ONE (19:58)
[2023-03-17] MEDS ORDERED: Heparin IV Adult Wt-Based Low-Dose *NO* Bolus Protocol IV SCH (19:58)
[2023-03-17] MEDS ORDERED: LORazepam 0.5 MG TAB PO PRN (20:04)
[2023-03-17] MEDS ORDERED: PROMETHAZINE HCL 12.5 MG in SODIUM CHLORIDE 0.9% 50 ML IV PRN (20:04)
[2023-03-17] MEDS ORDERED: HYDROmorphone INJ 0.5 MG/0.5 ML SYR IV PRN (20:04)
[2023-03-17 21:19] LABS: Partial Thromboplastin Ratio 1.1; Partial Thromboplastin Time 32.2 Seconds (21.0-31.0)
[2023-03-17] MEDS: LIDOCAINE 5% 1 PATCH TD SCH (21:20)
[2023-03-17] MEDS: HEPARIN SODIUM/DEXTROSE 25,000 UNITS/500 ML BAG IV SCH (21:20)
[2023-03-17] MEDS: oxyCODONE HCL IR 5 MG TAB (IMMEDIATE RELEASE) PO PRN (21:28)
[2023-03-17] MEDS ORDERED: LANTUS PER UNIT CHARGE SQ SCH (22:44)
[2023-03-17] MEDS ORDERED: DEXTROSE 50% 50 ML SYRINGE IV PRN (22:44)
[2023-03-17] MEDS ORDERED: GLUCOSE 10 TAB/TUBE PO PRN (22:44)
[2023-03-17] MEDS ORDERED: DOCUSATE SODIUM 100 MG CAP PO PRN (22:44)
[2023-03-17] MEDS ORDERED: GLUCOSE 40% GEL 15 GM TUBE PO PRN (22:44)
[2023-03-17] MEDS ORDERED: GLUCAGON FOR INJ 1 MG VIAL SQ PRN (22:44)
[2023-03-17] MEDS: INSULIN ASPART PER UNIT CHARGE SC SCH (23:13)
[2023-03-17] MEDS: PANTOprazole 40 MG TAB PO SCH (23:14)
[2023-03-17] MEDS: rOPINIRole HCL 0.25 MG TABLET PO SCH (23:14)
[2023-03-18 03:58] LABS: Basophils # (auto) 0.01 K/uL (0.00-0.20); Basophils % (auto) 0.3 %; Hematocrit (blood only) 26.9 % (37.0-47.0); Hemoglobin 8.9 g/dl (12.0-16.0); Immature Granulocytes # (auto) 0.01 K/uL (0.01-0.20); Immature Granulocytes % (auto) 0.3 %; Lymphocytes # (auto) 0.34 K/uL (1.20-3.40); Lymphocytes % (auto) 8.9 %; Mean Corpuscular Hemoglobin 28.6 pg (25.0-34.0); Mean Corpuscular Hgb Conc 33.1 g/dL (32.0-36.0); Mean Corpuscular Volume 86.5 fL (80.0-100.0); Mean Platelet Volume 10.1 fL (9.4-12.4); Monocytes % (auto) 2.6 %; Neutrophils # (auto) 3.36 K/uL (1.40-6.50); Neutrophils % (auto) 87.9 %; Platelet Count 128 K/uL (130-400); RDW Coefficient of Variation 14.3 % (11.5-14.5); RDW Standard Deviation 45.3 fL (36.4-46.3); Red Blood Count 3.11 M/uL (4.20-5.40); White Blood Count 3.82 K/ul (4.8-10.8)
[2023-03-18 04:28] LABS: BUN Creatinine Ratio 22.5 (10-20); Calcium 9.3 mg/dl (8.6-10.3); Creatinine Clr Calc Pharmacy 28.6 ml/min; Est GFR (African American) 24.6 ml/min; Est GFR (Non-African American) 21.2 ml/min; Potassium 5.4 mmol/L (3.5-5.1)
--- NOTE | 2023-03-18 04:36 | Communication Note ---
Date of Service: March 18, 2023 Made aware of abnormal a.m. labs. Serum potassium 5.4 Serum creatinine 2.4 up from 2.17 yesterday Serum glucose 345 AP Hyperkalemia Worsening kidney dysfunction Change to full admission Regular insulin IV, continue IV albumin Nephrology consult Med telemetry transfer
[2023-03-18] MEDS ORDERED: INSULIN HUMAN REGULAR PER UNIT 10 UNITS in SYRINGE 9.9 ML IV ONE (04:45)
[2023-03-18 04:46] LABS: Partial Thromboplastin Ratio 1.5
[2023-03-18] MEDS: LANTUS PER UNIT CHARGE SQ SCH ×2 (04:51→20:49)
[2023-03-18] MEDS: ALBUMIN 25% 25 GM/100 ML VIAL IV SCH ×3 (05:08→20:03)
[2023-03-18] MEDS: oxyCODONE HCL IR 5 MG TAB (IMMEDIATE RELEASE) PO PRN ×2 (07:51→15:14)
[2023-03-18] MEDS: PANTOprazole 40 MG TAB PO SCH ×2 (07:51→20:51)
[2023-03-18] MEDS: ROSUVASTATIN CALCIUM 5 MG TAB PO SCH (07:51)
[2023-03-18] MEDS: CHOLECALCIFEROL 1,000 UNITS 25 MCG TAB PO SCH (07:52)
--- NOTE | 2023-03-18 08:10 | Nephrology Consultation ---
Date of Consultation March 18, 2023 Assessment & Plan (1) BLAIRE (acute kidney injury): recurrent BLAIRE (second episode past 2 wks). stage 1 nonoliguric BLAIRE on CKD 4. pt prone to BLAIRE w/ frequent diuretic changes, hospital admissions. no obstruction on imaging, UA bland. -continue to avoid nsaids -daily bmp -continue to hold torsemide (2) CKD (chronic kidney disease) stage 4, GFR 15-29 ml/min: baseline creatinine about 2 for early CKD 4, progressive this year. Follows w/ Dr Brown. (3) Hyperkalemia: had IV insulin this am -may worsen with being off torsemide and on heparin gtt -check daily bmp >>also w/ stable chronic mild hyponatremia for which best therapy at this point is pain control History of Present Illness Reason for Consultation: BLAIRE on CKD Requesting Physician: Dr Odom Attending Physician: Sj Mcgill MD History of Present Illness 62 y/o F whom I'm asked to see for BLAIRE on CKD was admitted last evening for stable T8 vertebral burst fracture and BLAIRE on CKD after presenting w/ back pain and leg weakness. PMH includes progressive early CKD4 baseline creatinine about 2 (one year ago was 3A; follows w/ Dr Brown); saddle PE on eliquis, DM on insulin (last A1c 9.5%), NAFLD w/ ascites on q6 wk paracentesis and portal hypertensive gastropathy, HTN, HL; also w/ recent admission for UGIB attributed to NSAIDS. At recent hospital d/c her creatinine was 2.2; of note she did have BLAIER as an outpatient with creatinine up to low 3's managed by Dr Brown w/ resolution back to 1.9 on 03/11. on presentation yesterday creatinine was 2.2; up to 2.4 this am w/ mild hyperkalemia 5.4. She was started on iv albumin and received IV insulin. She was also started on IV heparin. Pt tells me she is tired and "having issues w/ my breathing," on my eval of her at about 1230 this afternoon. encorses occasoinal cough. minimal ascites. some orthopnea. some edema. no new/worrisome voiding concerns. ongoing thoracic back pain. Allergies Allergy/AdvReac Type Severity Reaction Status Date / Time morphine AdvReac Intermediate Vomiting Verified 02/26/23 12:24 Home Medications Medication Instructions Recorded Confirmed Type albuterol sulfate 90 mcg/actuation 2 puff inhalation QID 01/21/22 03/17/23 History aerosol inhaler apixaban 5 mg tablet (Eliquis) 5 mg PO Q12H #60 tabs 04/14/22 03/17/23 Rx cholecalciferol (vitamin D3) 25 1,000 unit PO QAM #20 caps 04/14/22 03/17/23 Rx mcg (1,000 unit) capsule docusate sodium 100 mg capsule 100 mg PO DAILY PRN Constipation 05/15/22 03/17/23 History (Colace) albuterol sulfate 2.5 mg/3 mL 2.5 mg inhalation DIRECTED PRN 02/25/23 03/17/23 History (0.083 %) solution for nebulization Shortness Of Breath Or Wheezing methyl salicylate 15 %-menthol 10 1 applic topical BID PRN Pain 02/25/23 03/17/23 History % topical cream rosuvastatin 5 mg tablet 5 mg PO DAILY 02/25/23 03/17/23 History tramadol 50 mg tablet 50 mg PO Q6H PRN Pain 02/25/23 03/17/23 History insulin aspart U-100 100 unit/mL 10 unit (0.1 mL) subcut TIDM #15 mL 03/03/23 03/17/23 Rx (3 mL) subcutaneous pen (Novolog FlexPen U-100 Insulin aspart) insulin glargine 100 unit/mL (3 25 unit (0.25 mL) subcut QAM #15 mL 03/03/23 03/17/23 Rx mL) subcutaneous pen (Lantus Solostar U-100 Insulin) potassium chloride 20 mEq 20 meq PO BID #60 tabs 03/03/23 03/17/23 Rx tablet,extended release(part/cryst) ropinirole 0.25 mg tablet 0.25 mg PO HS #30 tabs 03/03/23 03/17/23 Rx spironolactone 100 mg tablet 100 mg PO QAM #30 tabs 03/03/23 03/17/23 Rx torsemide 20 mg tablet 20 mg PO QAM #30 tabs 03/03/23 03/17/23 Rx pantoprazole 40 mg tablet,delayed 40 mg PO AMHS 03/17/23 03/17/23 History release Patient History Medical History BLAIRE (acute kidney injury) Asthma Diabetes DVT (deep venous thrombosis) Fall Fall Hepatic cirrhosis Left rib fracture Rib fractures UTI (urinary tract infection) Surgical History History of breast biopsy LEFT BREAST History of colonoscopy Hx of cholecystectomy Family History Mother Hypertension Father Hypertension COPD (chronic obstructive pulmonary disease) Social History Smoking Status: Never smoker Second Hand Exposure: No; Do You Dip or Chew Tobacco: No; Hx Alcohol Use: No Hx Substance Use: No Preferred Language: Sammarinese Communication Ability: Effective Assisted Living Associate Required: No Beliefs That Will Affect Care: None marital status: Single Current Living Situation: Parent Current Living Situation Comment: Lives at home with mother Other Information That Helps Us Care for You: No Feels Safe at Home: Yes Safety Concerns: Feels Safe At This Time Assistive Devices: Cane and Walker Review of Systems Review of Systems: All systems reviewed & are unremarkable except as noted in HPI & below Physical Exam Constitutional: well developed, well nourished, + physical limitations and cooperative; no acute distress Eyes: EOM intact bilaterally ENMT: Ears: no external ear abnormality Nose: no external nose abnormality Mouth: + dry oral mucous membranes Neck: no nuchal rigidity Respiratory: normal respiratory effort Auscultation: + diminished lung sounds Gastrointestinal (Abdomen): Inspection/Auscultation: normal bowel sounds Percussion/Palpation: abdomen soft; abdomen nontender Musculoskeletal: Extremities: strength 5/5 throughout Skin: no rashes, warm and dry Neurologic: barroso, fluent speech, no tremor Results & Data Vital Signs (Past 12 Hours) Vital Signs Temp Pulse Pulse Resp BP BP Pulse Ox 03/18/23 07:00 76 03/18/23 05:55 36.8 C 81 16 119/75 96 03/17/23 22:58 03/17/23 22:58 36.6 C 98 H 16 127/78 94 03/17/23 21:00 87 16 138/77 97 O2 Del Method 03/18/23 07:00 03/18/23 05:55 Room Air 03/17/23 22:58 Room Air 03/17/23 22:58 Room Air 03/17/23 21:00 Room Air Laboratory Results 03/18/23 03:34 03/18/23 07:03 admission UA bland; sg [address] chest FINDINGS: 11 mm hypodense left thyroid nodule. Borderline enlarged mediastinal lymph nodes include cardiophrenic lymph nodes measuring up to 9 mm. Decreased attenuation of the cardiac blood pool suggestive of anemia. Mild cardiomegaly with extensive coronary artery calcifications. No pneumothorax, pleural effusion, airspace consolidation or pulmonary edema. Mild subsegmental bibasilar atelectasis. No suspicious pulmonary nodules or masses. Central airways are patent. Cirrhosis with small volume of upper abdominal ascites. Indeterminate nodular focus posterior to the right hepatic lobe on image 169 measuring 6 mm. Splenomegaly. Cholecystectomy. Mildly enlarged gastrohepatic and carlos hepatis lymph nodes may be related to underlying chronic liver disease. 3 mm nonobstructing calculus of the superior pole left kidney. Mild generalized body wall edema. No acute fracture identified. Chronic rib fractures. Mild chronic T4 compression deformity. Chronic T3 compression deformity. Mild age-indeterminate superior endplate compression at T2 without retropulsion. T8 burst fracture with vertebral plana and 4 mm retropulsion is new from prior. IMPRESSION: 1. Cardiomegaly with mild subsegmental bibasilar atelectasis. 2. Cirrhosis with stigmata of portal venous hypertension including splenomegaly with small volume of abdominal ascites. 3. Left nephrolithiasis. 4. Age-indeterminate however likely chronic burst fracture/vertebral plana at T8 with 4 mm retropulsion is new from 03/17/2022. 5. Subtle age indeterminate superior endplate compression deformity at T2 without retropulsion. CT a/p FINDINGS: The lung bases will be reported on the same day chest CTA. No pneumoperitoneum. No pneumatosis. No change in the chronic moderate to severe superior endplate compression deformity at L4. Severe compression deformity at T8 is new from the prior study. This is age indeterminate but favors a subacute to chronic compression deformity given the mild paravertebral edema and sclerosis. Moderate body wall edema is noted. Prior cholecystectomy. The cirrhotic liver and mild splenomegaly persists. The unenhanced pancreas and adrenal glands are unremarkable. There are few punctate left renal calculi. No ureteral calculi. No hydronephrosis. Normal right kidney. Mild periportal lymphadenopathy, unchanged. This is likely due to the patient's cirrhosis. Calcified retroperitoneal and pelvic lymph nodes remain unchanged. No lymphadenopathy identified. The bladder, uterus, bilateral adnexa are within normal limits. Small amount of ascites has improved. Normal caliber abdominal aorta. Suboptimal evaluation for bowel pathology due to the lack of intravenous and oral contrast. However, there is no definite bowel wall thickening or ob struction. Colonic diverticulosis. No evidence for acute diverticulitis. IMPRESSION: 1. Severe compression deformity at T8 is new from the prior study. This is age indeterminate but favors a subacute to chronic compression deformity given the mild paravertebral edema and sclerosis. 2. Cirrhotic liver with splenomegaly and a small amount of ascites. 3. No definite bowel wall thickening or obstruction. 4. Left-sided nephrolithiasis. No ureteral stones. No hydronephrosis. 5. Moderate body wall edema. 6. Additional findings as described above. MRI T spine pending
--- NOTE | 2023-03-18 08:50 | CT Scan Report ---
CT OF THE HEAD WITHOUT CONTRAST CLINICAL HISTORY: Facial droop COMPARISON STUDY: Head CT March 17, 2022. CT DOSE: 625.80 mGy.cm TECHNIQUE: Helical axial images of the head were obtained without IV contrast. Automated exposure con trol was utilized for the study. A dose lowering technique was utilized adhering to the principles o f ALARA. FINDINGS: No acute intracranial hemorrhage, midline shift or mass effect is present. The ventricular system is unremarkable. 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 The basal cisterns are patent. No extra-axial collections are present. There are no findings to suggest acute dural sinus thrombosi s or acute territorial infarct. No significant calvarial abnormalities are present. Visualized portio ns of the sinuses and mastoid air cells are clear. IMPRESSION: No acute intracranial findings. No change in appearance of the brain. ACT 112: Negative or not required by law. Electronically signed by: Dave Triana M.D. 03/18/2023 8:48 AM
[2023-03-18] MEDS: LIDOCAINE 5% 1 PATCH TD SCH ×2 (08:54→20:51)
[2023-03-18] MEDS: INSULIN ASPART PER UNIT CHARGE SC SCH ×4 (08:59→20:49)
[2023-03-18] MEDS ORDERED: Nursing to Pharmacy Communication SCH (09:00)
[2023-03-18] MEDS ORDERED: ALBUTEROL 0.083% NEBU SOLN 3 ML VIAL INH PRN (09:03)
[2023-03-18] MEDS ORDERED: ALBUTEROL 0.083% NEBU SOLN 3 ML VIAL NEB PRN (09:56)
[2023-03-18] MEDS ORDERED: ALBUTEROL HFA 8 GM INHALER INH PRN (10:06)
--- NOTE | 2023-03-18 12:54 | Magnetic Resonance Report ---
MRI OF THE THORACIC SPINE WITHOUT CONTRAST CLINICAL HISTORY: T8 fracture. Mid back pain. COMPARISON: Chest CTs March 17, 2022 and March 17, 2023. TECHNIQUE: Utilizing a 1.5 Maryanne magnet and dedicated coil, multiplanar, multiecho imaging of the th oracic spine was performed without IV contrast. FINDINGS: Note is made of a severe T8 compression fracture with 90% loss of vertebral body height ant eriorly. There is 4 mm of retropulsion at the inferior endplate which results in mild central canal s tenosis. There is mild edema within this vertebral body. This fracture is new since CT of March 17, 2022. There are old mild compression fractures of the superior endplates of T2 and T3. There is an ol d moderate T4 compression fracture involving the superior plate. No acute thoracic spine fracture is present. There is no suspicious marrow replacement. Thoracic cord signal and caliber are normal. Ther e is no intracanalicular mass or fluid collection. Paravertebral soft tissues are unremarkable. Cirrh osis with splenomegaly and ascites are better depicted on abdominal CT of March 17, 2023. IMPRESSION: 1. Severe T8 compression fracture with 4 mm of retropulsion at the inferior endplate which results in mild central canal stenosis. This fracture is subacute to chronic. 2. Old T2, T3 and T4 compression fractures. 4. No acute thoracic spine fractures. 4. Normal thoracic cord signal and caliber. ACT 112: Negative or not required by law. Electronically signed by: Dave Triana M.D. 03/18/2023 12:52 PM
--- NOTE | 2023-03-18 14:59 | Hospitalist Progress Note ---
Date of Service March 18, 2023 Assessment & Plan (1) Stable burst fracture of T8 vertebra: Plan: Severe T8 compression fracture resulting in mild central canal stenosis Patient denies any history of fall recently --Thoracic spine MRI:Severe T8 compression fracture with 4 mm of retropulsion at the inferior endplate which results in mild central canal stenosis. This fracture is subacute to chronic. Old T2, T3 and T4 compression fractures. No acute thoracic spine fractures. Normal thoracic cord signal and caliber. --CT head:No acute intracranial findings. No change in appearance of the brain. -- Fall precautions Pain control Orthopedics Spine surgery consulted PT OT as able BLAIRE on CKD IV Baseline creatinine ~ 2.0 Hyperkalemia -No hydronephrosis on CT Cr 2.4 Avoid nephrotoxic agents as able Given volume overload status, will need diuretics Nephrology consulted Chronic hyponatremia Likely multifactorial: Volume overload, diuretics Sodium 131 today Monitor sodium levels closely JOYCE cirrhosis Mild ascites Volume overload status--multifactorial--cirrhosis, CKD Moderate body wall edema Resume diuretics-will wait for Nephrology Input H/O saddle pulmonary embolism Hold Eliquis given possible need for spine surgery Continue IV heparin for now DM II Last HbA1c 9.5 Metformin, lisinopril discontinued last admission Continue IV insulin Monitor blood glucose levels H/O gastric ulcers due to NSAID use Chronic anemia Continue Protonix Monitor CBC Hypertension Hyperlipidemia RLS Continue current medications Monitor DVT Px: IV heparin for now Code Status Full code Disposition PT OT prior to discharge Admission and Anticipated Discharge Date Admission Date: March 17, 2023 Subjective Patient is seen and examined at bedside States having back pain this morning Also reports generalized weakness and feels anxious Denies any chest pain, dizziness, nausea, vomiting, abdominal pain Transient dyspnea this morning as well Review of Systems Review of Systems: All systems reviewed & are unremarkable except as noted in Subjective Physical Exam Physical Exam: Physical Exam: Vitals signs as noted above General Appearance:Moderately built and nourished, no apparent distress Head: normocephalic, Atraumatic Eyes: normal inspection, EOMI Neck: supple, Trachea midline Respiratory/Chest: Normal breath sounds, CTA, No accessory muscle use Cardiovascular: S1, S2, + murmur Abdomen/GI:Soft, Non tender, Bowel sounds present Extremities/Musculoskeletal:normal inspection, 2+ pedal edema Neurologic/Psych:AAOX3, grossly no focal neurological deficits Skin: normal color, warm Results & Data Results & Data Vital Signs (Past 12 Hours) Vital Signs Temp Pulse Pulse Pulse Resp BP Pulse Ox 03/18/23 10:00 96 H 15 96 03/18/23 07:55 03/18/23 07:56 83 14 130/77 96 03/18/23 08:12 36.7 C 74 20 103/62 97 03/18/23 07:00 76 03/18/23 05:55 36.8 C 81 16 119/75 96 O2 Del Method FiO2 03/18/23 10:00 Room Air 21 03/18/23 07:55 Room Air 03/18/23 07:56 Room Air 03/18/23 08:12 Room Air 03/18/23 07:00 03/18/23 05:55 Room Air Laboratory Results Short CBC 03/18/23 Range/Units 03:34 WBC 3.82 L (4.8-10.8) K/ul Hgb 8.9 L (12.0-16.0) g/dl Hct 26.9 L (37.0-47.0) % Plt Count 128 L (130-400) K/uL BMP 03/18/23 03/18/23 03:34 07:03 Sodium 131 L Potassium 5.4 H 4.9 Chloride 96 L Carbon Dioxide 27 BUN 54 H Creatinine 2.40 H Glucose 345 H* Calcium 9.3 Cardiac Enzymes 03/18/23 Range/Units 03:34 Total Creatine Kinase 40 (26-192) U/L Liver Function 03/17/23 Range/Units 14:37 Direct Bilirubin 0.1 (0-0.2) mg/dl Urine 03/17/23 Range/Units 15:23 Urine Color Yellow Urine Appearance Clear (Clear) Urine pH 7.0 (4.5-7.5) Ur Specific [place] 1.007 (1.000-1.030) Urine Protein Negative (Negative) Urine Glucose (UA) Negative (Negative)
--- NOTE | 2023-03-18 15:14 | Orthopedic Consultation ---
Date of Consultation March 18, 2023 Assessment & Plan (1) Stable burst fracture of T8 vertebra: MRI thoracic spine performed today does demonstrate evidence of subacute T8 fracture. There is no evidence of significant canal compression or cord damage. She does have significant collapse of the vertebral body. Assessment T8 fracture. Plan I discussed with this patient her MRI results. She has continued intermittent pain however she is neurologically intact. I would not recommend any surgical invention at this time. She would not be a good candidate for kyphoplasty in light of the anatomy of the fracture. I will continue to have her undergo activity as tolerated with limited upper extremity lifting. History of Present Illness Reason for Consultation: Thoracic back pain Attending Physician: Sj Mcgill MD History of Present Illness Is a very pleasant 8-year-old female states she fell almost a year and a half ago getting out of bed. Since that time she has had midthoracic back pain. It limits her mostly with prolonged standing working in the kitchen or twisting. She denies any numbness or tingling to the upper or lower extremities. Denies any radicular complaints around her ribs. She does have a history of peripheral neuropathy. Allergies Allergy/AdvReac Type Severity Reaction Status Date / Time morphine AdvReac Intermediate Vomiting Verified 02/26/23 12:24 Home Medications Medication Instructions Recorded Confirmed Type albuterol sulfate 90 mcg/actuation 2 puff inhalation QID 01/21/22 03/17/23 History aerosol inhaler apixaban 5 mg tablet (Eliquis) 5 mg PO Q12H #60 tabs 04/14/22 03/17/23 Rx cholecalciferol (vitamin D3) 25 1,000 unit PO QAM #20 caps 04/14/22 03/17/23 Rx mcg (1,000 unit) capsule docusate sodium 100 mg capsule 100 mg PO DAILY PRN Constipation 05/15/22 03/17/23 History (Colace) albuterol sulfate 2.5 mg/3 mL 2.5 mg inhalation DIRECTED PRN 02/25/23 03/17/23 History (0.083 %) solution for nebulization Shortness Of Breath Or Wheezing methyl salicylate 15 %-menthol 10 1 applic topical BID PRN Pain 02/25/23 03/17/23 History % topical cream rosuvastatin 5 mg tablet 5 mg PO DAILY 02/25/23 03/17/23 History tramadol 50 mg tablet 50 mg PO Q6H PRN Pain 02/25/23 03/17/23 History insulin aspart U-100 100 unit/mL 10 unit (0.1 mL) subcut TIDM #15 mL 03/03/23 03/17/23 Rx (3 mL) subcutaneous pen (Novolog FlexPen U-100 Insulin aspart) insulin glargine 100 unit/mL (3 25 unit (0.25 mL) subcut QAM #15 mL 03/03/23 03/17/23 Rx mL) subcutaneous pen (Lantus Solostar U-100 Insulin) potassium chloride 20 mEq 20 meq PO BID #60 tabs 03/03/23 03/17/23 Rx tablet,extended release(part/cryst) ropinirole 0.25 mg tablet 0.25 mg PO HS #30 tabs 03/03/23 03/17/23 Rx spironolactone 100 mg tablet 100 mg PO QAM #30 tabs 03/03/23 03/17/23 Rx torsemide 20 mg tablet 20 mg PO QAM #30 tabs 03/03/23 03/17/23 Rx pantoprazole 40 mg tablet,delayed 40 mg PO AMHS 03/17/23 03/17/23 History release Patient History Medical History BLAIRE (acute kidney injury) Asthma Diabetes DVT (deep venous thrombosis) Fall Fall Hepatic cirrhosis Left rib fracture Rib fractures UTI (urinary tract infection) Surgical History History of breast biopsy LEFT BREAST History of colonoscopy Hx of cholecystectomy Family History Mother Hypertension Father Hypertension COPD (chronic obstructive pulmonary disease) Social History Smoking Status: Never smoker Second Hand Exposure: No; Do You Dip or Chew Tobacco: No; Hx Alcohol Use: No Hx Substance Use: No Preferred Language: Malian Communication Ability: Effective Testboard Operator Required: No Beliefs That Will Affect Care: None marital status: Single Current Living Situation: Parent Current Living Situation Comment: Lives at home with mother Other Information That Helps Us Care for You: No Feels Safe at Home: Yes Safety Concerns: Feels Safe At This Time Assistive Devices: Cane and Walker Physical Exam Physical Exam: On exam patient is sitting up in bed. She is alert and cooperative. She has good strength testing. She is some modest tenderness palpation of the mid thoracic region. There is no abnormal skin markings. Results & Data Vital Signs (Past 12 Hours) Vital Signs Temp Pulse Pulse Pulse Resp BP Pulse Ox 03/18/23 10:00 96 H 15 96 03/18/23 07:55 03/18/23 07:56 83 14 130/77 96 03/18/23 08:12 36.7 C 74 20 103/62 97 03/18/23 07:00 76 03/18/23 05:55 36.8 C 81 16 119/75 96 O2 Del Method FiO2 03/18/23 10:00 Room Air 21 03/18/23 07:55 Room Air 03/18/23 07:56 Room Air 03/18/23 08:12 Room Air 03/18/23 07:00 03/18/23 05:55 Room Air
[2023-03-18] MEDS: rOPINIRole HCL 0.25 MG TABLET PO SCH (20:50)
[2023-03-19] MEDS: HEPARIN SODIUM/DEXTROSE 25,000 UNITS/500 ML BAG IV SCH (02:14)
[2023-03-19] MEDS: ALBUMIN 25% 25 GM/100 ML VIAL IV SCH ×2 (05:00→12:51)
[2023-03-19 06:20] LABS: Hemoglobin 7.9 g/dl (12.0-16.0); Mean Corpuscular Hemoglobin 28.5 pg (25.0-34.0); Mean Corpuscular Volume 86.6 fL (80.0-100.0); Red Blood Count 2.77 M/uL (4.20-5.40); White Blood Count 4.38 K/ul (4.8-10.8)
[2023-03-19 06:21] LABS: Mean Corpuscular Hgb Conc 32.9 g/dL (32.0-36.0); Mean Platelet Volume 9.9 fL (9.4-12.4); Platelet Count 105 K/uL (130-400); RDW Coefficient of Variation 14.4 % (11.5-14.5); RDW Standard Deviation 45.7 fL (36.4-46.3)
[2023-03-19 06:29] LABS: Partial Thromboplastin Ratio 1.4; Partial Thromboplastin Time 38.7 Seconds (21.0-31.0)
[2023-03-19 06:49] LABS: BUN Creatinine Ratio 26.7 (10-20); Calcium 9.1 mg/dl (8.6-10.3); Creatinine Clr Calc Pharmacy 29.7 ml/min; Est GFR (African American) 25.6 ml/min; Est GFR (Non-African American) 22.1 ml/min; Magnesium 2.1 mg/dl (1.7-2.4); Potassium 4.1 mmol/L (3.5-5.1)
[2023-03-19] MEDS: PANTOprazole 40 MG TAB PO SCH ×2 (08:28→21:15)
[2023-03-19] MEDS: APIXABAN 5 MG TABLET PO SCH ×2 (08:28→21:16)
[2023-03-19] MEDS: ROSUVASTATIN CALCIUM 5 MG TAB PO SCH (08:28)
[2023-03-19] MEDS: CHOLECALCIFEROL 1,000 UNITS 25 MCG TAB PO SCH (08:29)
[2023-03-19] MEDS: LANTUS PER UNIT CHARGE SQ SCH (08:33)
[2023-03-19] MEDS: oxyCODONE HCL IR 5 MG TAB (IMMEDIATE RELEASE) PO PRN (08:33)
[2023-03-19] MEDS: INSULIN ASPART PER UNIT CHARGE SC SCH ×4 (09:37→21:06)
--- NOTE | 2023-03-19 16:45 | Hospitalist Progress Note ---
Date of Service March 19, 2023 Assessment & Plan (1) Stable burst fracture of T8 vertebra: Plan: Severe T8 compression fracture resulting in mild central canal stenosis Patient denies any history of fall recently --Thoracic spine MRI:Severe T8 compression fracture with 4 mm of retropulsion at the inferior endplate which results in mild central canal stenosis. This fracture is subacute to chronic. Old T2, T3 and T4 compression fractures. No acute thoracic spine fractures. Normal thoracic cord signal and caliber. --CT head:No acute intracranial findings. No change in appearance of the brain. -- Fall precautions Pain control Appreciate Orthopedics Spine surgery Input: Conservative management. Not a good candidate for kyphoplasty Continue PT OT BLAIRE on CKD IV Baseline creatinine ~ 2.0 Hyperkalemia -No hydronephrosis on CT Cr 2.3 today Avoid nephrotoxic agents as able Given volume overload status, will need to resume diuretics eventually Nephrology on board Hyperkalemia resolved Chronic hyponatremia Likely multifactorial: Volume overload, diuretics Sodium 134 today Monitor sodium levels closely JOYCE cirrhosis Mild ascites Volume overload status--multifactorial--cirrhosis, CKD Moderate body wall edema Resume diuretics as able H/O saddle pulmonary embolism IV heparin discontinued Resumed Eliquis as no plan for back surgery DM II Last HbA1c 9.5 Metformin, lisinopril discontinued last admission Continue IV insulin Monitor blood glucose levels H/O gastric ulcers due to NSAID use Chronic anemia Continue Protonix Monitor CBC Hypertension Hyperlipidemia RLS Continue current medications Monitor DVT Px: Eliquis Code Status Full code Disposition PT OT prior to discharge Admission and Anticipated Discharge Date Admission Date: March 18, 2023 Subjective Patient is seen and examined at bedside Back pain is controlled with medications Offers no new complaints Discussed with nephrology today Denies any chest pain, dyspnea, dizziness, nausea, vomiting, abdominal pain Review of Systems Review of Systems: All systems reviewed & are unremarkable except as noted in Subjective Physical Exam Physical Exam: Physical Exam: Vitals signs as noted above General Appearance:Moderately built and nourished, no apparent distress Head: normocephalic, Atraumatic Eyes: normal inspection, EOMI Neck: supple, Trachea midline Respiratory/Chest: Normal breath sounds, CTA, No accessory muscle use Cardiovascular: S1, S2, + murmur Abdomen/GI:Soft, Non tender, Bowel sounds present Extremities/Musculoskeletal:normal inspection, 2+ pedal edema Neurologic/Psych:AAOX3, grossly no focal neurological deficits Skin: normal color, warm Results & Data Results & Data Vital Signs (Past 12 Hours) Vital Signs Temp Pulse Pulse Resp BP Pulse Ox O2 Del Method 03/19/23 14:51 36.6 C 79 18 133/78 99 Room Air 03/19/23 15:21 74 03/19/23 12:39 36.5 C 87 20 148/79 H 97 Room Air 03/19/23 07:10 36.5 C 70 16 123/78 97 Room Air 03/19/23 07:59 68 Laboratory Results Short CBC 03/19/23 Range/Units 05:50 WBC 4.38 L (4.8-10.8) K/ul Hgb 7.9 L (12.0-16.0) g/dl Hct 24.0 L (37.0-47.0) % Plt Count 105 L (130-400) K/uL BMP 03/19/23 05:50 Sodium 134 L Potassium 4.1 Chloride 99 Carbon Dioxide 27 BUN 62 H Creatinine 2.32 H Glucose 112 H Calcium 9.1
--- NOTE | 2023-03-19 16:59 | Nephrology Progress Note ---
Date of Service March 19, 2023 Assessment & Plan (1) BLAIRE (acute kidney injury): Plan: recurrent BLAIRE (second episode past 2 wks). stage 1 nonoliguric BLAIRE on CKD 4. pt prone to BLAIRE w/ frequent diuretic changes, hospital admissions. no obstruction on imaging, UA bland. albumin infusions wrapped up today. discharged recently on 03/03 on torsemide lowered 100 > 20 mg daily and new spironolactone 100 mg daily -continue to avoid nsaids -daily bmp >plan in AM to resume diuretics at 10 mg torsemide daily and 50 mg spironolactone daily if renal function stable or better >>started 1.5L FR daily; cont low Na diet care coordinated w/ Dr Mcgill. (2) CKD (chronic kidney disease) stage 4, GFR 15-29 ml/min: Plan: baseline creatinine about 2 for early CKD 4, progressive this year. Follows w/ Dr Brown. (3) Hyperkalemia: Plan: had IV insulin this am -may worsen with being off torsemide and on heparin gtt -check daily bmp >>also w/ stable chronic mild hyponatremia for which best therapy at this point is pain control Admission and Anticipated Discharge Date Admission Date: March 18, 2023 Subjective fracture for consiervative mgt. seen on am rounds. no cough, no n/v. some nocturia; some exertional sob Review of Systems Review of Systems: All systems reviewed & are unremarkable except as noted in Subjective Physical Exam Constitutional: well developed, well nourished, + physical limitations and cooperative; no acute distress Eyes: EOM intact bilaterally ENMT: Ears: no external ear abnormality Nose: no external nose abnormality Mouth: + dry oral mucous membranes Neck: no nuchal rigidity Respiratory: normal respiratory effort Auscultation: + diminished lung sounds and + crackles Cardiovascular: RRR, no murmur, no edema Gastrointestinal (Abdomen): Inspection/Auscultation: + abdomen distended and normal bowel sounds Percussion/Palpation: abdomen soft and + ascites; abdomen nontender Musculoskeletal: Extremities: strength 5/5 throughout Skin: no rashes, warm and dry Results & Data Vital Signs (Past 12 Hours) Vital Signs Temp Pulse Pulse Resp BP Pulse Ox O2 Del Method 03/19/23 14:51 36.6 C 79 18 133/78 99 Room Air 03/19/23 15:21 74 03/19/23 12:39 36.5 C 87 20 148/79 H 97 Room Air 03/19/23 07:10 36.5 C 70 16 123/78 97 Room Air 03/19/23 07:59 68 Laboratory Results 03/19/23 05:50 03/19/23 05:50
[2023-03-19] MEDS: CARBOHYDRATES FOR HYPOGLYCEMIA PO PRN (17:23)
[2023-03-19] MEDS ORDERED: PHARMACY GLYCEMIC MGMT CONSULT PRN (17:50)
[2023-03-19] MEDS ORDERED: LANTUS PER UNIT CHARGE SC SCH (21:00)
[2023-03-19] MEDS ORDERED: LANTUS PER UNIT CHARGE SQ SCH (21:00)
[2023-03-19] MEDS: rOPINIRole HCL 0.25 MG TABLET PO SCH (21:15)
[2023-03-19] MEDS: LIDOCAINE 5% 1 PATCH TD SCH (21:16)
[2023-03-20 06:21] LABS: Basophils # (auto) 0.04 K/uL (0.00-0.20); Eosinophils # (auto) 0.07 K/uL (0.00-0.50); Eosinophils % (auto) 1.8 %; Hemoglobin 8.5 g/dl (12.0-16.0); Immature Granulocytes # (auto) 0.02 K/uL (0.01-0.20); Immature Granulocytes % (auto) 0.5 %; Lymphocytes # (auto) 0.95 K/uL (1.20-3.40); Lymphocytes % (auto) 23.8 %; Mean Corpuscular Hemoglobin 28.5 pg (25.0-34.0); Mean Corpuscular Hgb Conc 32.7 g/dL (32.0-36.0); Mean Corpuscular Volume 87.2 fL (80.0-100.0); Mean Platelet Volume 10.1 fL (9.4-12.4); Monocytes # (auto) 0.34 K/uL (0.11-0.59); Monocytes % (auto) 8.5 %; Neutrophils # (auto) 2.57 K/uL (1.40-6.50); Neutrophils % (auto) 64.4 %; Platelet Count 132 K/uL (130-400); RDW Coefficient of Variation 14.5 % (11.5-14.5); RDW Standard Deviation 46.1 fL (36.4-46.3); Red Blood Count 2.98 M/uL (4.20-5.40); White Blood Count 3.99 K/ul (4.8-10.8)
[2023-03-20 06:38] LABS: BUN Creatinine Ratio 29.9 (10-20); Calcium 9.3 mg/dl (8.6-10.3); Creatinine Clr Calc Pharmacy 33.6 ml/min; Est GFR (Non-African American) 25.8 ml/min; Magnesium 2.3 mg/dl (1.7-2.4); Potassium 4.2 mmol/L (3.5-5.1)
[2023-03-20] MEDS: CHOLECALCIFEROL 1,000 UNITS 25 MCG TAB PO SCH (08:19)
[2023-03-20] MEDS: ROSUVASTATIN CALCIUM 5 MG TAB PO SCH (08:19)
[2023-03-20] MEDS: PANTOprazole 40 MG TAB PO SCH ×2 (08:19→20:37)
[2023-03-20] MEDS: APIXABAN 5 MG TABLET PO SCH ×2 (08:19→20:36)
[2023-03-20] MEDS: LANTUS PER UNIT CHARGE SC SCH (08:56)
[2023-03-20] MEDS: INSULIN ASPART PER UNIT CHARGE SC SCH ×4 (08:57→20:36)
[2023-03-20] MEDS: SPIRONOLACTONE 25 MG TAB PO SCH (10:30)
[2023-03-20] MEDS: TORSEMIDE 10 MG TAB PO SCH (10:30)
--- NOTE | 2023-03-20 11:18 | Pharmacy Report ---
Pharmacy Glycemic Short Note 2 - Date of Service March 20, 2023 - Glycemic Short BSG Results (Last 24 hours): 03/19/23 03/19/23 03/19/23 13:44 17:18 17:38 Glucose POC Glucose 97 66 L* 70 03/19/23 03/20/23 03/20/23 20:07 05:47 08:03 Glucose 107 H POC Glucose 140 H 129 H OUTPATIENT ANTIDIABETIC REGIMEN: * Lantus 25 units SQ daily * Novolog 10 units TIDM * HbA1C= 9.5% (02/26/23) ASSESSMENT: * Ms Giron is a 62 y/o F with a PMH of T2DM who presents with a vertebral fracture. * Patient was admitted on 03/17/23. Patient received dexamethasone 10 mg IV x 1 that day. * BSGs on 03/18 were 900-530-981-173 mg/dL. Patient received 58 units of insulin (30 units of Lantus and 28 units of bolus). * BSGs on 03/19 were 514-72-53-140 mg/dL. Patient received 46 units of insulin (20 units of basal and 26 units). The patient's hypoglycemic event was due to too much carbohydrate coverage. * Fasting today was 129 mg/dL. * For Lantus will return to patient's home dose of Lantus 25 units daily. * Loosening Novolog's carbohydrate ratio. PLAN FOR INPATIENT GLYCEMIC CONTROL: * Basal insulin * Lantus 25 units SQ daily * Bolus insulin * NovoLog per scale ACHS or Q6hrs while NPO * Goal Range: Low 110 mg/dL - High 140 mg/dL * Correction Factor: 20 mg/dL/unit * Nutritional / Prandial insulin per carb ratio of 1 unit per 7 grams CHO consumed
--- NOTE | 2023-03-20 13:13 | Nephrology Progress Note ---
Date of Service March 20, 2023 Assessment & Plan (1) BLAIRE (acute kidney injury): Plan: recurrent BLAIRE (second episode past 2 wks). stage 1 nonoliguric BLAIRE on CKD 4. pt prone to BLAIER w/ frequent diuretic changes, hospital admissions. no obstruction on imaging, UA bland. albumin infusions wrapped up today. discharged recently on 03/03 on torsemide lowered 100 > 20 mg daily and new spironolactone 100 mg daily -continue to avoid nsaids -daily bmp >Resume diuretics at 10 mg torsemide daily and 50 mg spironolactone dailyr >>continue with 1.5L FR daily; cont low Na diet care coordinated w/ Dr Mcgill. (2) CKD (chronic kidney disease) stage 4, GFR 15-29 ml/min: Plan: baseline creatinine about 2 for early CKD 4, progressive this year. Follows w/ Dr Brown. (3) Hyperkalemia: Plan: had IV insulin this am -may worsen with being off torsemide and on heparin gtt -check daily bmp >>also w/ stable chronic mild hyponatremia for which best therapy at this point is pain control Admission and Anticipated Discharge Date Admission Date: March 18, 2023 Subjective Comfortable no cough, no n/v. some nocturia; some exertional sob Review of Systems Review of Systems: All systems reviewed & are unremarkable except as noted in HPI & below Results & Data Vital Signs (Past 12 Hours) Vital Signs Temp Pulse Pulse Resp BP BP Pulse Ox 03/20/23 11:19 36.6 C 78 18 116/72 99 03/20/23 09:11 03/20/23 08:48 68 03/20/23 07:07 36.6 C 69 18 119/73 97 03/20/23 02:38 36.8 C 69 16 113/74 96 O2 Del Method 03/20/23 11:19 Room Air 03/20/23 09:11 Room Air 03/20/23 08:48 03/20/23 07:07 Room Air 03/20/23 02:38 Room Air Laboratory Results 03/20/23 05:47 03/20/23 05:47
--- NOTE | 2023-03-20 17:06 | Hospitalist Progress Note ---
Date of Service March 20, 2023 Assessment & Plan (1) Stable burst fracture of T8 vertebra: Plan: Severe T8 compression fracture resulting in mild central canal stenosis Patient denies any history of fall recently --Thoracic spine MRI:Severe T8 compression fracture with 4 mm of retropulsion at the inferior endplate which results in mild central canal stenosis. This fracture is subacute to chronic. Old T2, T3 and T4 compression fractures. No acute thoracic spine fractures. Normal thoracic cord signal and caliber. --CT head:No acute intracranial findings. No change in appearance of the brain. -- Fall precautions Pain control Appreciate Orthopedics Spine surgery Input: Conservative management. Not a good candidate for kyphoplasty Continue PT OT BLAIRE on CKD IV Baseline creatinine ~ 2.0 Hyperkalemia -No hydronephrosis on CT Cr 2.0 today Avoid nephrotoxic agents as able Given volume overload status, will need to resume diuretics eventually Appreciate nephrology input Hyperkalemia resolved Resume diuretics at lower dose torsemide 10 mg daily, Aldactone 50 mg daily Chronic hyponatremia Likely multifactorial: Volume overload, diuretics Sodium 133 today Monitor sodium levels closely JOYCE cirrhosis Mild ascites Volume overload status--multifactorial--cirrhosis, CKD Moderate body wall edema Continue diuretics as above H/O saddle pulmonary embolism IV heparin discontinued Resumed Eliquis as no plan for back surgery DM II Last HbA1c 9.5 Metformin, lisinopril discontinued last admission Continue IV insulin Monitor blood glucose levels H/O gastric ulcers due to NSAID use Chronic anemia Continue Protonix Monitor CBC Hypertension Hyperlipidemia RLS Continue current medications Monitor DVT Px: Eliquis Code Status Full code Admission and Anticipated Discharge Date Admission Date: March 18, 2023 Subjective Patient is seen and examined at bedside Sitting in chair during my encounter States feeling tired today Discussed with nephrology today Denies any significant back pain Also denies any chest pain, dyspnea, dizziness, nausea, vomiting, abdominal pain Review of Systems Review of Systems: All systems reviewed & are unremarkable except as noted in Subjective Physical Exam Physical Exam: Physical Exam: Vitals signs as noted above General Appearance:Moderately built and nourished, no apparent distress Head: normocephalic, Atraumatic Eyes: normal inspection, EOMI Neck: supple, Trachea midline Respiratory/Chest: Normal breath sounds, CTA, No accessory muscle use Cardiovascular: S1, S2, + murmur Abdomen/GI:Soft, Non tender, Bowel sounds present Extremities/Musculoskeletal:normal inspection, 2+ pedal edema Neurologic/Psych:AAOX3, grossly no focal neurological deficits Skin: normal color, warm Results & Data Results & Data Vital Signs (Past 12 Hours) Vital Signs Temp Pulse Pulse Resp BP BP Pulse Ox 03/20/23 15:43 76 03/20/23 14:34 36.6 C 77 18 103/64 99 03/20/23 11:19 36.6 C 78 18 116/72 99 03/20/23 09:11 03/20/23 08:48 68 03/20/23 07:07 36.6 C 69 18 119/73 97 O2 Del Method 03/20/23 15:43 03/20/23 14:34 Room Air 03/20/23 11:19 Room Air 03/20/23 09:11 Room Air 03/20/23 08:48 03/20/23 07:07 Room Air Laboratory Results Short CBC 03/20/23 Range/Units 05:47 WBC 3.99 L (4.8-10.8) K/ul Hgb 8.5 L (12.0-16.0) g/dl Hct 26.0 L (37.0-47.0) % Plt Count 132 (130-400) K/uL BMP 03/20/23 05:47 Sodium 133 L Potassium 4.2 Chloride 100 Carbon Dioxide 27 BUN 61 H Creatinine 2.04 H Glucose 107 H Calcium 9.3
[2023-03-20] MEDS: LIDOCAINE 5% 1 PATCH TD SCH (20:37)
[2023-03-20] MEDS: rOPINIRole HCL 0.25 MG TABLET PO SCH (20:37)
[2023-03-21 08:05] LABS: Hematocrit (blood only) 25.8 % (37.0-47.0); Hemoglobin 8.7 g/dl (12.0-16.0)
[2023-03-21 08:39] LABS: Calcium 9.2 mg/dl (8.6-10.3)
[2023-03-21 08:44] LABS: BUN Creatinine Ratio 38.3 (10-20); Creatinine Clr Calc Pharmacy 42.3 ml/min; Est GFR (African American) 39.6 ml/min; Est GFR (Non-African American) 34.1 ml/min
[2023-03-21] MEDS: CHOLECALCIFEROL 1,000 UNITS 25 MCG TAB PO SCH (09:26)
[2023-03-21] MEDS: APIXABAN 5 MG TABLET PO SCH ×2 (09:26→21:05)
[2023-03-21] MEDS: ROSUVASTATIN CALCIUM 5 MG TAB PO SCH (09:26)
[2023-03-21] MEDS: PANTOprazole 40 MG TAB PO SCH ×2 (09:26→21:04)
[2023-03-21] MEDS: TORSEMIDE 10 MG TAB PO SCH (09:27)
[2023-03-21] MEDS: SPIRONOLACTONE 25 MG TAB PO SCH (09:27)
[2023-03-21] MEDS: INSULIN ASPART PER UNIT CHARGE SC SCH ×4 (09:35→21:05)
[2023-03-21] MEDS: LANTUS PER UNIT CHARGE SC SCH (09:35)
[2023-03-21] MEDS ORDERED: POLYETHYLENE (MIRALAX) 17 GM PACK PO PRN (11:08)
--- NOTE | 2023-03-21 16:45 | Hospitalist Progress Note ---
Date of Service March 21, 2023 Assessment & Plan (1) Stable burst fracture of T8 vertebra: Plan: Severe T8 compression fracture resulting in mild central canal stenosis Patient denies any history of fall recently --Thoracic spine MRI:Severe T8 compression fracture with 4 mm of retropulsion at the inferior endplate which results in mild central canal stenosis. This fracture is subacute to chronic. Old T2, T3 and T4 compression fractures. No acute thoracic spine fractures. Normal thoracic cord signal and caliber. --CT head:No acute intracranial findings. No change in appearance of the brain. -- Fall precautions Pain control Appreciate Orthopedics Spine surgery Input: Conservative management. Not a good candidate for kyphoplasty Continue PT OT: Recommends to return home BLAIRE on CKD IV Baseline creatinine ~ 2.0 Hyperkalemia -No hydronephrosis on CT Avoid nephrotoxic agents as able Given volume overload status, will need to resume diuretics eventually Appreciate nephrology input Hyperkalemia resolved Resume diuretics at lower dose torsemide 10 mg daily, Aldactone 50 mg daily Cr 1.6 today Chronic hyponatremia Likely multifactorial: Volume overload, diuretics Sodium 134 today Monitor sodium levels closely JOYCE cirrhosis Mild ascites Volume overload status--multifactorial--cirrhosis, CKD Moderate body wall edema Continue diuretics as above H/O saddle pulmonary embolism IV heparin discontinued Resumed Eliquis as no plan for back surgery DM II Last HbA1c 9.5 Metformin, lisinopril discontinued last admission Continue IV insulin Monitor blood glucose levels H/O gastric ulcers due to NSAID use Chronic anemia Continue Protonix Monitor CBC Hypertension Hyperlipidemia RLS Continue current medications Monitor DVT Px: Eliquis Code Status Full code Disposition Home as able Admission and Anticipated Discharge Date Admission Date: March 18, 2023 Subjective Patient is seen and examined at bedside States feeling better today No new complaints Less leg edema today Discussed with patient's family at bedside Back pain is well controlled Denies any chest pain, dyspnea, dizziness, nausea, vomiting, abdominal pain Review of Systems Review of Systems: All systems reviewed & are unremarkable except as noted in Subjective Physical Exam Physical Exam: Physical Exam: Vitals signs as noted above General Appearance:Moderately built and nourished, no apparent distress Head: normocephalic, Atraumatic Eyes: normal inspection, EOMI Neck: supple, Trachea midline Respiratory/Chest: Normal breath sounds, CTA, No accessory muscle use Cardiovascular: S1, S2, + murmur Abdomen/GI:Soft, Non tender, Bowel sounds present Extremities/Musculoskeletal:normal inspection, 2+ pedal edema Neurologic/Psych:AAOX3, grossly no focal neurological deficits Skin: normal color, warm Results & Data Results & Data Vital Signs (Past 12 Hours) Vital Signs Temp Pulse Pulse Resp BP BP Pulse Ox 03/21/23 15:43 36.6 C 83 19 116/72 91 03/21/23 11:39 36.9 C 80 19 118/76 97 03/21/23 09:52 03/21/23 07:51 72 03/21/23 07:51 36.6 C 73 18 113/73 97 O2 Del Method 03/21/23 15:43 Room Air 03/21/23 11:39 Room Air 03/21/23 09:52 Room Air 03/21/23 07:51 03/21/23 07:51 Room Air Laboratory Results Short CBC 03/21/23 Range/Units 06:59 Hgb 8.7 L (12.0-16.0) g/dl Hct 25.8 L (37.0-47.0) % BMP 03/21/23 06:59 Sodium 134 L Potassium 4.0 Chloride 101 Carbon Dioxide 28 BUN 62 H Creatinine 1.62 H D Glucose 136 H Calcium 9.2
[2023-03-21] MEDS: CARBOHYDRATES FOR HYPOGLYCEMIA PO PRN (16:57)
[2023-03-21] MEDS: LIDOCAINE 5% 1 PATCH TD SCH (21:03)
[2023-03-21] MEDS: rOPINIRole HCL 0.25 MG TABLET PO SCH (21:04)
[2023-03-22 07:07] LABS: Hematocrit (blood only) 27.2 % (37.0-47.0); Hemoglobin 9.1 g/dl (12.0-16.0); Mean Corpuscular Hemoglobin 28.4 pg (25.0-34.0); Mean Corpuscular Hgb Conc 33.5 g/dL (32.0-36.0); Mean Platelet Volume 9.6 fL (9.4-12.4); Platelet Count 135 K/uL (130-400); RDW Coefficient of Variation 14.6 % (11.5-14.5); RDW Standard Deviation 45.2 fL (36.4-46.3); White Blood Count 3.91 K/ul (4.8-10.8)
[2023-03-22 07:31] LABS: BUN Creatinine Ratio 30.3 (10-20); Calcium 9.4 mg/dl (8.6-10.3); Creatinine Clr Calc Pharmacy 36.7 ml/min; Est GFR (African American) 33.1 ml/min; Est GFR (Non-African American) 28.5 ml/min; Potassium 3.9 mmol/L (3.5-5.1)
[2023-03-22] MEDS: APIXABAN 5 MG TABLET PO SCH (08:22)
[2023-03-22] MEDS: CHOLECALCIFEROL 1,000 UNITS 25 MCG TAB PO SCH (08:23)
[2023-03-22] MEDS: PANTOprazole 40 MG TAB PO SCH (08:24)
[2023-03-22] MEDS: ROSUVASTATIN CALCIUM 5 MG TAB PO SCH (08:25)
[2023-03-22] MEDS: SPIRONOLACTONE 25 MG TAB PO SCH (08:26)
[2023-03-22] MEDS: TORSEMIDE 10 MG TAB PO SCH (08:27)
[2023-03-22] MEDS: LANTUS PER UNIT CHARGE SC SCH (09:49)
[2023-03-22] MEDS: INSULIN ASPART PER UNIT CHARGE SC SCH ×2 (09:50→13:07)
--- NOTE | 2023-03-22 12:50 | Pharmacy Report ---
Pharmacy Glycemic Short Note 2 - Date of Service March 22, 2023 - Glycemic Short BSG Results (Last 24 hours): 03/21/23 03/21/23 03/21/23 16:55 16:56 17:23 Glucose POC Glucose 66 L* 67 L* 90 03/21/23 03/22/23 03/22/23 20:43 06:21 08:08 Glucose 144 H POC Glucose 112 H 169 H 03/22/23 11:40 Glucose POC Glucose 197 H OUTPATIENT ANTIDIABETIC REGIMEN: * Lantus 25 units SQ daily * Novolog 10 units TIDM * HbA1C= 9.5% (02/26/23) ASSESSMENT: 03/22 * BSGs ranged 66-181 mg/dL yesterday, with 25 units of lantus, 18 units of correctional/prandial novolog * Patient did have hypoglycemia with dinner yesterday, will slightly loosen carb ratio this morning and monitor * Fasting has been trending upward, 169 mg/dl today, SCr improved, will consider trial of slight increase (~20%) in lantus tomorrow 03/20 * Ms Giron is a 62 y/o F with a PMH of T2DM who presents with a vertebral fracture. * Patient was admitted on 03/17/23. Patient received dexamethasone 10 mg IV x 1 that day. * BSGs on 03/18 were 154-293-927-173 mg/dL. Patient received 58 units of insulin (30 units of Lantus and 28 units of bolus). * BSGs on 03/19 were 724-45-31-140 mg/dL. Patient received 46 units of insulin (20 units of basal and 26 units). The patient's hypoglycemic event was due to too much carbohydrate coverage. * Fasting today was 129 mg/dL. * For Lantus will return to patient's home dose of Lantus 25 units daily. * Loosening Novolog's carbohydrate ratio. PLAN FOR INPATIENT GLYCEMIC CONTROL: * Basal insulin * Lantus 25 units SQ daily * Bolus insulin * NovoLog per scale ACHS or Q6hrs while NPO * Goal Range: Low 110 mg/dL - High 140 mg/dL * Correction Factor: 20 mg/dL/unit * Nutritional / Prandial insulin per carb ratio of 1 unit per 7 grams CHO consumed
--- NOTE | 2023-03-22 14:27 | Hospitalist Progress Note ---
Date of Service March 22, 2023 Assessment & Plan (1) Stable burst fracture of T8 vertebra: Plan: Severe T8 compression fracture resulting in mild central canal stenosis Patient denies any history of fall recently --Thoracic spine MRI:Severe T8 compression fracture with 4 mm of retropulsion at the inferior endplate which results in mild central canal stenosis. This fracture is subacute to chronic. Old T2, T3 and T4 compression fractures. No acute thoracic spine fractures. Normal thoracic cord signal and caliber. --CT head:No acute intracranial findings. No change in appearance of the brain. -- Fall precautions Pain control Appreciate Orthopedics Spine surgery Input: Conservative management. Not a good candidate for kyphoplasty Continue PT OT: Recommends to return home BLAIRE on CKD IV Baseline creatinine ~ 2.0 Hyperkalemia -No hydronephrosis on CT Avoid nephrotoxic agents as able Given volume overload status, will need to resume diuretics eventually Appreciate nephrology input Hyperkalemia resolved Resume diuretics at lower dose torsemide 10 mg daily, Aldactone 50 mg daily Cr 1.[address] Brown on 03/22/2023: Advised to discharge on reduced dose of torsemide 10 mg daily, Aldactone 50 mg daily Chronic hyponatremia Likely multifactorial: Volume overload, diuretics Sodium 133 today Monitor sodium levels closely JOYCE cirrhosis Mild ascites Volume overload status--multifactorial--cirrhosis, CKD Moderate body wall edema Continue diuretics as above H/O saddle pulmonary embolism IV heparin discontinued Resumed Eliquis as no plan for back surgery DM II Last HbA1c 9.5 Metformin, lisinopril discontinued last admission Continue Insulin while hospitalized Monitor blood glucose levels H/O gastric ulcers due to NSAID use Chronic anemia Continue Protonix Monitor CBC Hypertension Hyperlipidemia RLS Continue current medications Monitor DVT Px: Eliquis Code Status Full code Disposition Home Admission and Anticipated Discharge Date Admission Date: March 18, 2023 Subjective Patient is seen and examined at bedside Back pain is much improved Discussed with nephrology today Patient offers no new complaints Denies any chest pain, dyspnea, dizziness, nausea, vomiting, abdominal pain Plan to be discharged home today Review of Systems Review of Systems: All systems reviewed & are unremarkable except as noted in Subjective Physical Exam Physical Exam: Physical Exam: Vitals signs as noted above General Appearance:Moderately built and nourished, no apparent distress Head: normocephalic, Atraumatic Eyes: normal inspection, EOMI Neck: supple, Trachea midline Respiratory/Chest: Normal breath sounds, CTA, No accessory muscle use Cardiovascular: S1, S2, + murmur Abdomen/GI:Soft, Non tender, Bowel sounds present Extremities/Musculoskeletal:normal inspection, 2+ pedal edema Neurologic/Psych:AAOX3, grossly no focal neurological deficits Skin: normal color, warm Results & Data Results & Data Vital Signs (Past 12 Hours) Vital Signs Temp Pulse Pulse Pulse Resp BP BP 03/22/23 11:10 36.8 C 87 18 146/84 H 03/22/23 07:40 36.9 C 78 16 122/75 03/22/23 08:04 84 03/22/23 04:09 36.7 C 75 20 125/76 Pulse Ox O2 Del Method 03/22/23 11:10 98 Room Air 03/22/23 07:40 97 Room Air 03/22/23 08:04 03/22/23 04:09 97 Room Air Laboratory Results Short CBC 03/22/23 Range/Units 06:21 WBC 3.91 L (4.8-10.8) K/ul Hgb 9.1 L (12.0-16.0) g/dl Hct 27.2 L (37.0-47.0) % Plt Count 135 (130-400) K/uL BMP 03/22/23 06:21 Sodium 133 L Potassium 3.9 Chloride 100 Carbon Dioxide 27 BUN 57 H Creatinine 1.88 H Glucose 144 H Calcium 9.4
--- NOTE | 2023-03-22 14:44 | Discharge Summary ---
Date of Service March 22, 2023 Admission HPI Per Admitting Provider History obtained from patient and records. Medical history significant for hypertension, hyperlipidemia, history saddle PE on Eliquis, DM 2 insulin requiring, NAFLD cirrhosis, CRI (baseline creatinine 1.9), chronic anemia (baseline hemoglobin 8-9). Recent confinement 2 weeks ago for UGIB. EGD showed portal hypertensive gastropathy and nonbleeding gastric ulcers attributed to OTC NSAID use.. Patient discharged on PPI course. Patient noted worsening mid back pain the last few days. Mid back pain radiating to both shoulders and low back. Leg weakness from pain as per patient. No recollection of recent trauma. No fever, no chills, no chest pain. Usual SOB on exertion. Patient not sure about fluid retention. 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 Admission Exam Per Admitting Provider GENERAL: Comfortable, slightly anxious, obese, no respiratory distress SKIN: Pallor, warm HEENT: Pale palpebral conjunctivae, no ptosis, dry buccal mucosa NECK : Supple, short neck, no tenderness CHEST : Decreased breath sounds, no tenderness HEART : RRR, no obvious murmurs ABDOMEN: Some distention, nontender BACK : Mid back tenderness EXTREMITIES : Minimal LE swelling, no LE tenderness, no other conspicuous deformities noted NEUROLOGIC : Coherent, no facial asymmetry, no other gross focality Principal Diagnosis Severe vertebral (T8) compression fracture Acute kidney injury on CKD stage IV Chronic hyponatremia Hyperkalemia Discharge Data Allergies Allergy/AdvReac Type Severity Reaction Status Date / Time morphine AdvReac Intermediate Vomiting Verified 02/26/23 12:24 Consultations 03/17/23 19:01 ED Decision to Admit Stat 03/17/23 20:04 Consult Orthopedic Surgery Routine 03/18/23 04:28 Consult Nephrology Routine Procedures Performed Laboratory Results WBC 3.91 K/ul (4.8-10.8) L 03/22/23 06:21 RBC 3.20 M/uL (4.20-5.40) L 03/22/23 06:21 Hgb 9.1 g/dl (12.0-16.0) L 03/22/23 06:21 Hct 27.2 % (37.0-47.0) L 03/22/23 06:21 MCV 85.0 fL (80.0-100.0) 03/22/23 06:21 MCH 28.4 pg (25.0-34.0) 03/22/23 06:21 MCHC 33.5 g/dL (32.0-36.0) 03/22/23 06:21 RDW Std Deviation 45.2 fL (36.4-46.3) 03/22/23 06:21 RDW Coeff of Samy 14.6 % (11.5-14.5) H 03/22/23 06:21 Plt Count 135 K/uL (130-400) 03/22/23 06:21 MPV 9.6 fL (9.4-12.4) 03/22/23 06:21 Immature Gran % (Auto) 0.5 % 03/20/23 05:47 Neut % (Auto) 64.4 % 03/20/23 05:47 Lymph % (Auto) 23.8 % 03/20/23 05:47 Mcminn % (Auto) 8.5 % 03/20/23 05:47 Eos % (Auto) 1.8 % 03/20/23 05:47 Baso % (Auto) 1.0 % 03/20/23 05:47 Neut # (Auto) 2.57 K/uL (1.40-6.50) 03/20/23 05:47 Lymph # (Auto) 0.95 K/uL (1.20-3.40) L 03/20/23 05:47 Mcminn # (Auto) 0.34 K/uL (0.11-0.59) 03/20/23 05:47 Eos # (Auto) 0.07 K/uL (0.00-0.50) 03/20/23 05:47 Baso # (Auto) 0.04 K/uL (0.00-0.20) 03/20/23 05:47 Immature Gran # (Auto) 0.02 K/uL (0.01-0.20) 03/20/23 05:47 PT 14.0 Seconds (9.0-12.0) H 03/17/23 14:37 INR 1.3 (0.9-1.1) H 03/17/23 14:37 APTT 38.7 Seconds (21.0-31.0) H 03/19/23 05:50 PTT Ratio 1.4 03/19/23 05:50 Sodium 133 mmol/L (136-145) L 03/22/23 06:21 Potassium 3.9 mmol/L (3.5-5.1) 03/22/23 06:21 Chloride 100 mmol/L (98-107) 03/22/23 06:21 Carbon Dioxide 27 mmol/L (21-32) 03/22/23 06:21 Anion Gap 6 (3-11) 03/22/23 06:21 BUN 57 mg/dl (6-23) H 03/22/23 06:21 Creatinine 1.88 mg/dl (0.6-1.2) H 03/22/23 06:21 Est Cr Clr Drug Dosing 36.7 ml/min 03/22/23 06:21 Est GFR ( Amer) 33.1 ml/min 03/22/23 06:21 Est GFR (Non-Af Amer) 28.5 ml/min 03/22/23 06:21 BUN/Creatinine Ratio 30.3 (10-20) H 03/22/23 06:21 Glucose 144 mg/dl (70-99(Fasting)) H 03/22/23 06:21 POC Glucose 197 mg/dl (70-99) H 03/22/23 11:40 Calcium 9.4 mg/dl (8.6-10.3) 03/22/23 06:21 Magnesium 2.3 mg/dl (1.7-2.4) 03/20/23 05:47 Total Bilirubin 0.8 mg/dl (0.2-1.0) 03/17/23 12:25 Direct Bilirubin 0.1 mg/dl (0-0.2) 03/17/23 14:37 AST 29 U/L (13-39) 03/17/23 12:25 ALT 24 U/L (7-52) 03/17/23 12:25 Alkaline Phosphatase 144 U/L (34-104) H 03/17/23 12:25 Total Creatine Kinase 40 U/L (26-192) 03/18/23 03:34 Troponin I High Sens 6.0 pg/ml (0-14) 03/17/23 14:37 B-Natriuretic Peptide 69 pg/ml (0-100) 03/17/23 14:37 Total Protein 7.7 gm/dl (6.0-8.3) 03/17/23 12:25 Albumin 3.6 gm/dl (3.4-5.0) 03/17/23 12:25 Globulin 4.1 gm/dl (2.5-4.0) H 03/17/23 12:25 Albumin/Globulin Ratio 0.9 (0.9-2) 03/17/23 12:25 Urine Color Yellow 03/17/23 15:23 Urine Appearance Clear (Clear) 03/17/23 15:23 Urine pH 7.0 (4.5-7.5) 03/17/23 15:23 Ur Specific [place] 1.007 (1.000-1.030) 03/17/23 15: Urine Protein Negative (Negative) 03/17/23 15: Urine Glucose (UA) Negative (Negative) 03/17/23 15: Urine Ketones Negative (Negative) 03/17/23 15: Urine Blood Negative (Negative) 03/17/23 15: Urine Nitrite Negative (Negative) 03/17/23 15: Urine Bilirubin Negative (Negative) 03/17/23 15:23 Urine Urobilinogen Negative (Negative) 03/17/23 15:23 Ur Leukocyte Esterase Negative (Negative) 03/17/23 15:23 Impressions Chest X-Ray 03/17/23 12:13 XR chest 1V portable HISTORY: Shortness of breath. COMPARISON: Chest 03/25/2022. FINDINGS: There are low lung volumes. No focal lung consolidations to suggest a pneumonia. No evidence for pulmonary edema. The cardiac silhouette remains borderline enlarged. No pleural effusions. No pneumothorax. There are calcifications within the aortic knob. IMPRESSION: No acute process. ACT 112: Negative or not required by law. Electronically signed by: Abe Florentino M.D. 03/17/2023 1:51 PM Abdomen/Pelvis CT 03/17/23 15:[address] WITHOUT CONTRAST CT DOSE: 2359.12 mGy.cm HISTORY: Back pain, shortness of breath, cirrhosis TECHNIQUE: Multiaxial CT images of the abdomen and pelvis were performed without contrast. A dose lowering technique was utilized adhering to the principles of ALARA. COMPARISON STUDY: Abdomen and pelvis CT 03/17/2022. FINDINGS: The lung bases will be reported on the same day chest CTA. No pneum operitoneum. No pneumatosis. No change in the chronic moderate to severe superior endplate compression deformity at L4. Severe compression deformity at T8 is new from the prior study. This is age indeterminate but favors a subacute to chronic compression deformity given the mild paravertebral edema and sclerosis. Moderate body wall edema is noted. Prior cholecystectomy. The cirrhotic liver and mild splenomegaly persists. The unenhanced pancreas and adrenal glands are unremarkable. There are few punctate left renal calculi. No ureteral calculi. No hydronephrosis. Normal right kidney. Mild periportal lymphadenopathy, unchanged. This is likely due to the patient's cirrhosis. Calcified retroperitoneal and pelvic lymph nodes remain unchanged. No lymphadenopathy identified. The bladder, uterus, bilateral adnexa are within normal limits. Small amount of ascites has improved. Normal caliber abdominal aorta. Suboptimal evaluation for bowel pathology due to the lack of intravenous and oral contrast. However, there is no definite bowel wall thickening or obstruction. Colonic diverticulosis. No evidence for acute diverticulitis. IMPRESSION: 1. Severe compression deformity at T8 is new from the prior study. This is age indeterminate but favors a subacute to chronic compression deformity given the mild paravertebral edema and sclerosis. 2. Cirrhotic liver with splenomegaly and a small amount of ascites. 3. No definite bowel wall thickening or obstruction. 4. Left-sided nephrolithiasis. No ureteral stones. No hydronephrosis. 5. Moderate body wall edema. 6. Additional findings as described above. ACT 112: Negative or not required by law. Electronically signed by: Abe Florentino M.D. 03/17/2023 4:[address] 03/17/23 15:06 CT chest diagnostic wo con CLINICAL HISTORY: 62 years-old Female with Back pain, sob, cirrhosis. Acute shortness of breath with stenosis TECHNIQUE: Multiaxial CT images of the chest were performed without contrast. A dose lowering technique was utilized adhering to the principles of ALARA. COMPARISON: CT abdomen and pelvis of same day, chest CT 03/17/2022 FINDINGS: 11 mm hypodense left thyroid nodule. Borderline enlarged mediastinal lymph nodes include cardiophrenic lymph nodes measuring up to 9 mm. Decreased attenuation of the cardiac blood pool suggestive of anemia. Mild cardiomegaly with extensive coronary artery calcifications. No pneumothorax, pleural effusion, airspace consolidation or pulmonary edema. Mild subsegmental bibasilar atelectasis. No suspicious pulmonary nodules or masses. Central airways are patent. Cirrhosis with small volume of upper abdominal ascites. Indeterminate nodular focus posterior to the right hepatic lobe on image 169 measuring 6 mm. Splenomegaly. Cholecystectomy. Mildly enlarged gastrohepatic and carlos hepatis lymph nodes may be related to underlying chronic liver disease. 3 mm nonobstructing calculus of the superior pole left kidney. Mild generalized body wall edema. No acute fracture identified. Chronic rib fractures. Mild chronic T4 compression deformity. Chronic T3 compression deformity. Mild age-indeterminate superior endplate compression at T2 without retropulsion. T8 burst fracture with vertebral plana and 4 mm retropulsion is new from prior. IMPRESSION: 1. Cardiomegaly with mild subsegmental bibasilar atelectasis. 2. Cirrhosis with stigmata of portal venous hypertension including splenomegaly with small volume of abdominal ascites. 3. Left nephrolithiasis. 4. Age-indeterminate however likely chronic burst fracture/vertebral plana at T8 with 4 mm retropulsion is new from 03/17/2022. 5. Subtle age indeterminate superior endplate compression deformity at T2 without retropulsion. ACT 112: Negative or not required by law. Electronically signed by: Alfred Adames M.D. 03/17/2023 4:05 PM Thoracic Spine MRI 03/18/23 07:49 MRI OF THE THORACIC SPINE WITHOUT CONTRAST CLINICAL HISTORY: T8 fracture. Mid back pain. COMPARISON: Chest CTs March 17, 2022 and March 17, 2023. TECHNIQUE: Utilizing a 1.5 Maryanne magnet and dedicated coil, multiplanar, multiecho imaging of the thoracic spine was performed without IV contrast. FINDINGS: Note is made of a severe T8 compression fracture with 90% loss of vertebral body height anteriorly. There is 4 mm of retropulsion at the inferior endplate which results in mild central canal stenosis. There is mild edema within this vertebral body. This fracture is new since CT of March 17, 2022. There are old mild compression fractures of the superior endplates of T2 and T3. There is an old moderate T4 compression fracture involving the superior plate. No acute thoracic spine fracture is present. There is no suspicious marrow re placement. Thoracic cord signal and caliber are normal. There is no intracanalicular mass or fluid collection. Paravertebral soft tissues are unremarkable. Cirrhosis with splenomegaly and ascites are better depicted on abdominal CT of March 17, 2023. IMPRESSION: 1. Severe T8 compression fracture with 4 mm of retropulsion at the inferior endplate which results in mild central canal stenosis. This fracture is subacute to chronic. 2. Old T2, T3 and T4 compression fractures. 4. No acute thoracic spine fractures. 4. Normal thoracic cord signal and caliber. ACT 112: Negative or not required by law. Electronically signed by: Dave Triana M.D. 03/18/2023 12:[address] 03/18/23 08:03 CT OF THE HEAD WITHOUT CONTRAST CLINICAL HISTORY: Facial droop COMPARISON STUDY: Head CT March 17, 2022. CT DOSE: 625.80 mGy.cm TECHNIQUE: Helical axial images of the head were obtained without IV contrast. Automated exposure control was utilized for the study. A dose lowering technique was utilized adhering to the principles of ALARA. FINDINGS: No acute intracranial hemorrhage, midline shift or mass effect is present. The ventricular system is unremarkable. 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 The basal cisterns are patent. No extra-axial collections are present. There are no findings to suggest acute dural sinus thrombosis or acute territorial infarct. No significant calvarial abnormalities are present. Visualized portions of the sinuses and mastoid air cells are clear. IMPRESSION: No acute intracranial findings. No change in appearance of the brain. ACT 112: Negative or not required by law. Electronically signed by: Dave Triana M.D. 03/18/2023 8:48 AM Ordered Studies 03/17/23 15:06 CT abd pelvis wo con Stat CT chest diagnostic wo con Stat 03/18/23 07:49 MR thoracic spine wo con Urgent 03/18/23 08:03 CT head/brain wo con Stat Hospital Course (1) Stable burst fracture of T8 vertebra: Severe T8 compression fracture resulting in mild central canal stenosis Patient denies any history of fall recently --Thoracic spine MRI:Severe T8 compression fracture with 4 mm of retropulsion at the inferior endplate which results in mild central canal stenosis. This fracture is subacute to chronic. Old T2, T3 and T4 compression fractures. No acute thoracic spine fractures. Normal thoracic cord signal and caliber. --CT head:No acute intracranial findings. No change in appearance of the brain. -- Fall precautions Pain control Appreciate Orthopedics Spine surgery Input: Conservative management. Not a good candidate for kyphoplasty Continue PT OT: Recommends to return home [place] on CKD IV Baseline creatinine ~ 2.0 Hyperkalemia -No hydronephrosis on CT Avoid nephrotoxic agents as able Given volume overload status, will need to resume diuretics eventually Appreciate nephrology input Hyperkalemia resolved Resume diuretics at lower dose torsemide 10 mg daily, Aldactone 50 mg daily Cr 1.[address] Brown on 03/22/2023: Advised to discharge on reduced dose of torsemide 10 mg daily, Aldactone 50 mg daily Chronic hyponatremia Likely multifactorial: Volume overload, diuretics Sodium 133 today Monitor sodium levels closely JOYCE cirrhosis Mild ascites Volume overload status--multifactorial--cirrhosis, CKD Moderate body wall edema Continue diuretics as above H/O saddle pulmonary embolism IV heparin discontinued Resumed Eliquis as no plan for back surgery DM II Last HbA1c 9.5 Metformin, lisinopril discontinued last admission Continue Insulin while hospitalized Monitor blood glucose levels H/O gastric ulcers due to NSAID use Chronic anemia Continue Protonix Monitor CBC Hypertension Hyperlipidemia RLS Continue current medications Monitor DVT Px: Eliquis Code Status Full code Disposition Home Total Time Total Time Spent Total Time Spent (In Minutes): 56 minutes Discharge Plan Discharge Items Patient Disposition: Home - Self-Care Reason For Visit: COMP FX Discharge Diagnosis: Severe vertebral (T8) compression fracture Acute kidney injury on CKD stage IV Chronic hyponatremia Hyperkalemia Activity: Per Instructions section Exercise/Sports: Gradually increase as tolerated Non-emergency contact: Primary Care Provider Call non-emergency contact if: you have any medication questions, your symptoms worsen, your pain is concerning for you and you have a fever Follow-up/Referrals: Jonathan Rees MD [Primary Care Provider] - (Date & Time 03/25/2023 1:00 PM Provider Lani Vargas PA-C Department [facility] ) Diet: Carb Consistent or DM2 and Heart Healthy Addtl Attending Provider Instructions: Follow-up with your primary care physician Dr. Rees on 03/25/2023 1:00 PM Follow-up with your pie topper in 3 to 4 weeks. -- Medication changes: -Your torsemide is decreased to 10 mg daily -Your spironolactone is decreased to 50 mg daily -Your potassium supplement is discontinued until repeat blood test in 1 week. Further instructions as per your primary care physician. -- Get blood test (renal function test) in 1 week to monitor your potassium, renal function. Follow-up with your physician for further adjustment of medications as needed Seek immediate medical attention if your symptoms reoccur or worsen Please take all medications as instructed on discharge list below. Please call if you have any questions or problems. You can reach a [facility] hospitalist on duty at [facility] 24 hours a day by calling [phone] Pending Studies at Discharge: No Stand-Alone Forms: My [facility], Smoking Cessation Medications and DC Order Prescriptions: New torsemide 10 mg tablet 10 mg PO DAILY Qty: 30 1RF spironolactone [Aldactone] 50 mg tablet 50 mg PO QAM Qty: 30 1RF Continued albuterol sulfate 90 mcg/actuation HFA aerosol inhaler 2 puff INHALATION QID Eliquis 5 mg Tablet 5 mg PO Q12H Qty: 60 0RF cholecalciferol (vitamin D3) 25 mcg (1,000 unit) Capsule 1,000 unit PO QAM Qty: 20 0RF docusate sodium [Colace] 100 mg capsule 100 mg PO DAILY PRN (Reason: Constipation) albuterol sulfate 2.5 mg /3 mL (0.083 %) Solution For Nebulization 2.5 mg INHALATION DIRECTED PRN (Reason: Shortness Of Breath Or Wheezing) tramadol 50 mg Tablet 50 mg PO Q6H PRN (Reason: Pain) rosuvastatin 5 mg Tablet 5 mg PO DAILY methyl salicylate-menthol 15-10 % Cream 1 applic TOPICAL BID PRN (Reason: Pain) ropinirole 0.25 mg Tablet 0.25 mg PO HS Qty: 30 0RF insulin aspart U-100 [Novolog FlexPen U-100 Insulin] 100 unit/mL (3 mL) insulin pen 10 unit subcut TIDM Qty: 15 1RF insulin glargine [Lantus Solostar U-100 Insulin] 100 unit/mL (3 mL) insulin pen 25 unit SUBCUT QAM Qty: 15 1RF pantoprazole 40 mg tablet,delayed release (DR/EC) 40 mg PO AMHS Discontinued torsemide 20 mg Tablet 20 mg PO QAM Qty: 30 1RF spironolactone 100 mg Tablet 100 mg PO QAM Qty: 30 1RF potassium chloride 20 mEq Tablet,Er Particles/Crystals 20 meq PO BID Qty: 60 0RF Discharge Orders: Discharge Order (Routine); Ordered 03/22/23 Ordered By: Sj Mcgill Admission Data Admit Date/Time: 03/18/23 04:32 Attending Provider: Sj Mcgill Admit Provider: Kana Odom Primary Care Provider: Jonahtan Rees Other Providers: Kana Odom ; Christiano Talavera ; Anais Wharton ; Cali Brown ; Isidra Weir ; Shad Yun ; Pearl Mayer ; Svitlana Boggs
[2023-03-22] MEDS: oxyCODONE HCL IR 5 MG TAB (IMMEDIATE RELEASE) PO PRN (15:56)
[2023-03-23] MEDS ORDERED: LANTUS PER UNIT CHARGE SC SCH (09:00)
== END 2023-03-22 17:45 | disposition home health service (06) | DRG 552 ==
LOC: ED 11:53 → 3N 11:53 → 2N 03-18 05:43

== ENCOUNTER 2024-07-01 12:32 | Inpatient (IN) ==
[2024-07-01 13:23] LABS: Basophils # (auto) 0.07 K/uL (0.00-0.20); Basophils % (auto) 1.4 %; Eosinophils # (auto) 0.05 K/uL (0.00-0.50); Hematocrit (blood only) 27.9 % (37.0-47.0); Hemoglobin 9.6 g/dl (12.0-16.0); Immature Granulocytes # (auto) 0.02 K/uL (0.01-0.20); Immature Granulocytes % (auto) 0.4 %; Lymphocytes # (auto) 0.71 K/uL (1.20-3.40); Lymphocytes % (auto) 13.8 %; Mean Corpuscular Hemoglobin 31.2 pg (25.0-34.0); Mean Corpuscular Hgb Conc 34.4 g/dL (32.0-36.0); Mean Corpuscular Volume 90.6 fL (80.0-100.0); Mean Platelet Volume 9.9 fL (9.4-12.4); Monocytes % (auto) 5.8 %; Neutrophils # (auto) 4.01 K/uL (1.40-6.50); Neutrophils % (auto) 77.6 %; Platelet Count 127 K/uL (130-400); RDW Coefficient of Variation 14.1 % (11.5-14.5); RDW Standard Deviation 46.8 fL (36.4-46.3); Red Blood Count 3.08 M/uL (4.20-5.40); White Blood Count 5.16 K/ul (4.8-10.8)
--- NOTE | 2024-07-01 13:35 | XRay Report ---
XR chest 1V portable HISTORY: 64 years-old Female SOB acute shortness of breath COMPARISON: 04/10/2023 TECHNIQUE: AP view of the chest FINDINGS: Cardiomediastinal and hilar silhouettes are within normal limits. No pneumothorax, pleural effusion o r airspace consolidation. Bones appear grossly intact. IMPRESSION: No acute process. ACT 112: Negative or not required by law. The above report was generated using voice recognition software. It may contain grammatical, syntax o r spelling errors. Electronically signed by: Alfred Adames M.D. 07/01/2024 1:34 PM
[2024-07-01 13:39] LABS: Anion Gap 8 (3-11); BUN Creatinine Ratio 15.2 (10-20); Blood Urea Nitrogen 22 mg/dl (6-23); Calcium 9.3 mg/dl (8.6-10.3); Carbon Dioxide 24 mmol/L (21-32); Chloride 106 mmol/L (98-107); Glucose 165 mg/dl (70-99(Fasting)); Potassium 4.6 mmol/L (3.5-5.1); Sodium 138 mmol/L (136-145)
[2024-07-01] MEDS: FUROSEMIDE 40 MG/4 ML VIAL IV ONE (15:07)
--- NOTE | 2024-07-01 15:10 | Emergency Department Note ---
Impression & Plan Fluid overload, CHF exacerbation, Hx of medication noncompliance ED Provider Note NAME: DESIREE VÁSQUEZ AGE: 64 SEX: F : 1960 ARRIVES VIA: Walk-In INFORMANT: Patient, ED PROVIDER(S): Jasbir Lyman MD CHIEF COMPLAINT: Bilateral extremity swelling HPI: This is a 64-year-old female sent for bilateral lower extremity swelling. Patient states that for the past 1 to 2 weeks she is at increased shortness of breath, midsternal chest heaviness. She notes that she has exertional symptoms specifically. She can only walk 4-5 steps before having take a break. She notes that she lost her insurance and has not been able to take her diuretics or other medications for at least the past 1 week. She notes bilateral lower tremor swelling. She cannot lay flat and has orthopnea. ROS: See above HPI for pertinent positives & negatives. A total of 10 systems reviewed and were otherwise negative. PAST MEDICAL HISTORY: See Below PAST SURGICAL HISTORY: See Below FAMILY HISTORY: See Below SOCIAL HISTORY: See Below HOME MEDICATIONS: See Below ALLERGIES: See Below VITALS: See Below PHYSICAL EXAMINATION: General: elevated BMI, chronically unwell appearing, Head: Normocephalic and atraumatic Eyes: Normal inspection, extraocular muscles intact Ear, nose, throat: Normal external exam Neck: Normal range of motion Respiratory: Crackles at the bases Cardiovascular: Regular rate/rhythm, no murmur GI: soft, nontender, no guarding or rebound Extremities: 2+ pitting edema Neuro: The patient awake and alert, appropriately conversive, no focal deficits, symmetric faces Skin: Warm, dry, and intact MEDICAL DECISION MAKING: This is a 64-year-old female present for bilateral lower extremity pain/swelling. Patient has shortness of breath, exertional, orthopnea. This appears consistent with CHF. She has crackles on exam at the bases. Overall patient appears to have signs of fluid overload, 2+ pitting edema.. Will pursue CHF workup. Low concern for acute ACS or PE clinically, no hypoxia or tachypnea here. -Blood work is reviewed showing hemoglobin 9.6, otherwise no leukocytosis. Creatinine 1.45. BNP elevated at 185. -Chest Xray independently interpreted by me showing no pneumothorax, focal opacity, or pleural effusions. -With patient exertional symptoms, orthopnea, will admit for diuresis, will give 40 mg IV Lasix at this time -ECG independently interpreted by me with normal sinus rhythm, rate of 88, normal WA, normal QRS, normal QTc, no ST segment elevations consistent with STEMI criteria Differential diagnosis: CHF medication noncompliance, PE, dissection, pneumonia Independent History obtained from: Mother [facility] interpreted by me: ECG: See above Cardiac Monitoring: An order was placed for continuous cardiac monitoring. The monitor shows a rate of 91 with sinus rhythm. 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 jiang, [facility] Restless leg syndrome Hyperlipidemia GERD (gastroesophageal reflux disease) DVT (deep venous thrombosis) ~2021, unknown cause>"found it when they were doing testing on her kidneys and liver" Surgical History History of cataract surgery left History of abdominal paracentesis multiple; most recent 02/2023, [facility] History of esophagogastroduodenoscopy (EGD) History of colonoscopy History of breast biopsy left>benign Family History Mother Hypertension Father Hypertension COPD (chronic obstructive pulmonary disease) Social History Smoking Status: Never smoker Second Hand Exposure: Yes; Do You Dip or Chew Tobacco: No; Hx Alcohol Use: No Hx Substance Use: No Preferred Language: Tajik Communication Ability: Effective 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 Beliefs That Will Affect Care: None marital status: Single Current Living Situation: Family Current Living Situation Comment: lives with mother Feels Safe at Home: Yes Assistive Devices: Denture - Lower and Glasses Allergies Allergies Allergy/AdvReac Type Severity Reaction Status Date / Time morphine AdvReac Intermediate Vomiting Verified 10/20/23 07:27 Home Meds Home Medications Medication Instructions Recorded Confirmed albuterol sulfate 90 mcg/actuation 2 puff inhalation QID PRN 01/21/22 07/01/24 aerosol inhaler wheezing/SOB docusate sodium 100 mg capsule 100 mg PO DAILY PRN Constipation 05/15/22 07/01/24 (Colace) methyl salicylate 15 %-menthol 10 1 applic topical BID PRN Pain 02/25/23 07/01/24 % topical cream rosuvastatin 5 mg tablet 5 mg PO QAM 02/25/23 07/01/24 tramadol 50 mg tablet 50 mg PO Q6H PRN Pain 02/25/23 07/01/24 pantoprazole 40 mg tablet,delayed 20 mg PO BID 03/17/23 07/01/24 release empagliflozin 10 mg tablet 10 mg PO QAM 09/30/23 07/01/24 (Jardiance) insulin aspart U-100 100 unit/mL 5 unit subcut BID 09/30/23 07/01/24 (3 mL) subcutaneous pen (Novolog FlexPen U-100 Insulin aspart) insulin glargine 100 unit/mL (3 22 unit subcut QAM 09/30/23 07/01/24 mL) subcutaneous pen (Lantus Solostar U-100 Insulin) multivitamin 1 tab PO QAM 09/30/23 07/01/24 spironolactone 50 mg tablet 100 mg PO QAM 09/30/23 07/01/24 (Aldactone) torsemide 20 mg tablet 20 mg PO QAM 09/30/23 07/01/24 Previous Rx's Medication Instructions Recorded apixaban 5 mg tablet (Eliquis) 5 mg PO Q12H #60 tabs 04/14/22 ropinirole 0.25 mg tablet 0.25 mg PO HS #30 tabs 03/03/23 Results & Data (ED) Vital Signs Vital Signs - 24 hr 07/01/24 12:43 07/01/24 13:05 07/01/24 13:27 Temperature 36.6 C Temperature Source Temporal Artery Scan Pulse Rate 87 87 Pulse Rate [Apical] 86 Respiratory Rate 20 16 Respiratory Effort / Characteristics Non-Labored Spontaneous Non-Labored Spontaneous Respiratory Depth Normal Respiratory Pattern Regular Blood Pressure 162/73 H Blood Pressure [Right Arm] 149/95 H Blood Pressure Mean 102 Blood Pressure Mean [Right Arm] 113 Blood Pressure Position Sitting Blood Pressure Position [Right Arm] Pulse Oximetry 94 98 Oxygen Delivery Method Room Air Room Air Sepsis Recent Fever Within 48 Hours No Sepsis New/Unexplained Change in Mental Status No Sepsis Action Taken by Nursing No Action Required 07/01/24 15:00 Temperature Temperature Source Pulse Rate Pulse Rate [Apical] 79 Respiratory Rate 16 Respiratory Effort / Characteristics Non-Labored Spontaneous Respiratory Depth Respiratory Pattern Blood Pressure Blood Pressure [Right Arm] 167/91 H Blood Pressure Mean Blood Pressure Mean [Right Arm] 116 Blood Pressure Position Blood Pressure Position [Right Arm] Lying Pulse Oximetry 98 Oxygen Delivery Method Room Air Sepsis Recent Fever Within 48 Hours Sepsis New/Unexplained Change in Mental Status Sepsis Action Taken by Nursing Laboratory Data 07/01/24 13:04 07/01/24 13:04 Lab Results 07/01/24 Range/Units 13:04 WBC 5.16 (4.8-10.8) K/ul RBC 3.08 L (4.20-5.40) M/uL Hgb 9.6 L (12.0-16.0) g/dl Hct 27.9 L (37.0-47.0) % MCV 90.6 (80.0-100.0) fL MCH 31.2 (25.0-34.0) pg MCHC 34.4 (32.0-36.0) g/dL RDW Std Deviation 46.8 H (36.4-46.3) fL RDW Coeff of Samy 14.1 (11.5-14.5) % Plt Count 127 L (130-400) K/uL MPV 9.9 (9.4-12.4) fL Immature Gran % (Auto) 0.4 % Neut % (Auto) 77.6 % Lymph % (Auto) 13.8 % [place] % (Auto) 5.8 % Eos % (Auto) 1.0 % Baso % (Auto) 1.4 % Neut # (Auto) 4.01 (1.40-6.50) K/uL Lymph # (Auto) 0.71 L (1.20-3.40) K/uL [place] # (Auto) 0.30 (0.11-0.59) K/uL Eos # (Auto) 0.05 (0.00-0.50) K/uL Baso # (Auto) 0.07 (0.00-0.20) K/uL Immature Gran # (Auto) 0.02 (0.01-0.20) K/uL D-Dimer 1590 H* (0-500) ug/L FEU Sodium 138 (136-145) mmol/L Potassium 4.6 (3.5-5.1) mmol/L Chloride 106 (98-107) mmol/L Carbon Dioxide 24 (21-32) mmol/L Anion Gap 8 (3-11) BUN 22 (6-23) mg/dl Creatinine 1.45 H (0.6-1.2) mg/dl Est Cr Clr Drug Dosing Not Reportable eGFR 40.78 BUN/Creatinine Ratio 15.2 (10-20) Glucose 165 H (70-99(Fasting)) mg/dl Calcium 9.3 (8.6-10.3) mg/dl B-Natriuretic Peptide 185 H (0-100) pg/ml Administered Medications Apixaban (Apixaban 5 Mg Tablet) 5 mg PO Q12H LETI Stop: 07/31/24 17:59 Last Admin: 07/01/24 18:50 Dose: 5 mg Documented By: NATALIE Insulin Aspart (Insulin Aspart Per Unit Charge) 0 units SC ACHS LETI Stop: 07/31/24 16:29 Last Admin: 07/01/24 16:46 Dose: Not Given Documented By: SHRUTHI Co-signed By: ASW Discontinued Medications Furosemide (Furosemide 40 Mg/4 Ml Vial) 40 mg IV ONE ONE Stop: 07/01/24 14:30 Last Admin: 07/01/24 15:07 Dose: 40 mg Documented By: SHRUTHI Hydralazine HCl (Hydralazine Hcl 20 Mg/Ml Vial) 10 mg IV NOW STA Stop: 07/01/24 17:41 Last Admin: 07/01/24 17:45 Dose: 10 mg Documented By: NATALIE Hydralazine HCl (Hydralazine Hcl 20 Mg/Ml Vial) Confirm Administered Dose 20 mg .ROUTE .STK-MED ONE Stop: 07/01/24 17:43 Last Admin: 07/01/24 17:45 Dose: Not Given Documented By: NATALIE Imaging Data Radiologist's Impression: Chest X-Ray 07/01/24 12:54 XR chest 1V portable HISTORY: 64 years-old Female SOB acute shortness of breath COMPARISON: 04/10/2023 TECHNIQUE: AP view of the chest FINDINGS: Cardiomediastinal and hilar silhouettes are within normal limits. No pneumothorax, pleural effusion or airspace consolidation. Bones appear grossly intact. IMPRESSION: No acute process. ACT 112: Negative or not required by law. The above report was generated using voice recognition software. It may contain grammatical, syntax or spelling errors. Electronically signed by: Alfred Adames M.D. 07/01/2024 1:34 PM Discharge Plan Visit Data Chief Complaint: Swelling/Edema to Extremity Stated Complaint: LEGS SWELLING, FEET SWELLING, SOB, VISION, ED Provider: Jasbir Lyman Discharge Problem: Fluid overload, CHF exacerbation, Hx of medication noncompliance Patient Disposition: Admitted As Inpatient Discharge Instructions Interventions: ED Discharge Assessment Last Done: 07/01/24 17:07
--- NOTE | 2024-07-01 15:25 | History & Physical Report ---
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 No eliquis for 10 days VSS, O2 saturation 98% on room air BLE duplex without evidence of DVT Unable to order CT PE now due to renal function, will proceed with VQ scan Eliquis resumed NAFLD cirrhosis Has not taken diuretics for 1+ week No confusion, moderate ascites on abdominal ultrasound Diuresis as above HTN Resumed diuresis as above Not on other antihypertensives per home meds PRN labetalol for SBP >180 HLD Resumed statin DM II A1c 5.9 in 2022, repeat in AM Hold home agents Basal bolus insulin while inpatient 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 Salinas. Please see addendum. I spent a total of 75 minutes coordinating, documenting, and providing care for this patient excluding time spent in the performance of separately billed services. History of Present Illness Chief Complaint: dyspnea on exertion Primary Care Provider: Jonathan Rees MD This is a 64-year-old female with PMH of NAFLD cirrhosis, HTN, HLD, history of saddle PE on eliquis, DM II, anemia, CKD III and other medical problems listed below who presents with dyspnea on exertion. Patient had issues with insurance recently and was unable to fill medications. Has not taken any of her home meds in at least 2 weeks. Is trying to to get an appointment at [facility] and but unable to be seen until July. Endorses a 40 pound weight gain over the past 1-2 months with progressive shortness of breath. Having dyspnea even when she walks across the hallway in her home and had to sit down and take breaks when shopping in [employer] earlier today. Denies any fever, chills, headache. No chest pain, palpitations, nausea, vomiting, abdominal pain, dysuria, diarrhea or constipation. Progressively worsening lower extremity swelling. Allergies Allergy/AdvReac Type Severity Reaction Status Date / Time morphine AdvReac Intermediate Vomiting Verified 10/20/23 07:27 Home Medications Medication Instructions Recorded Confirmed Type albuterol sulfate 90 mcg/actuation 2 puff inhalation QID PRN 01/21/22 07/01/24 History aerosol inhaler wheezing/SOB apixaban 5 mg tablet (Eliquis) 5 mg PO Q12H #60 tabs 04/14/22 07/01/24 Rx docusate sodium 100 mg capsule 100 mg PO DAILY PRN Constipation 05/15/22 07/01/24 History (Colace) methyl salicylate 15 %-menthol 10 1 applic topical BID PRN Pain 02/25/23 07/01/24 History % topical cream rosuvastatin 5 mg tablet 5 mg PO QAM 02/25/23 07/01/24 History tramadol 50 mg tablet 50 mg PO Q6H PRN Pain 02/25/23 07/01/24 History ropinirole 0.25 mg tablet 0.25 mg PO HS #30 tabs 03/03/23 07/01/24 Rx pantoprazole 40 mg tablet,delayed 20 mg PO BID 03/17/23 07/01/24 History release empagliflozin 10 mg tablet 10 mg PO QAM 09/30/23 07/01/24 History (Jardiance) insulin aspart U-100 100 unit/mL 5 unit subcut BID 09/30/23 07/01/24 History (3 mL) subcutaneous pen (Novolog FlexPen U-100 Insulin aspart) insulin glargine 100 unit/mL (3 22 unit subcut QAM 09/30/23 07/01/24 History mL) subcutaneous pen (Lantus Solostar U-100 Insulin) multivitamin 1 tab PO QAM 09/30/23 07/01/24 History spironolactone 50 mg tablet 100 mg PO QAM 09/30/23 07/01/24 History (Aldactone) torsemide 20 mg tablet 20 mg PO QAM 09/30/23 07/01/24 History Past Med/Surg History Problem List Dyspnea on exertion Encounter for pre-operative examination Hyperkalemia History of acute renal failure CKD (chronic kidney disease) stage 4, GFR 15-29 ml/min CKD (chronic kidney disease) (Acute) Back pain, thoracic (Acute) Stable burst fracture of T8 vertebra (Acute) BLAIRE (acute kidney injury) (Acute) Acute hyperglycemia (Acute) Anemia (Acute) Acute GI bleeding (Acute) Hypokalemia (Acute) Weakness (Acute) Hypokalemia Upper GI bleed Volume overload 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 jiang, [facility] Restless leg syndrome Hyperlipidemia GERD (gastroesophageal reflux disease) DVT (deep venous thrombosis) ~2021, unknown cause>"found it when they were doing testing on her kidneys and liver" Surgical History History of cataract surgery left History of abdominal paracentesis multiple; most recent 02/2023, [facility] History of esophagogastroduodenoscopy (EGD) History of colonoscopy History of breast biopsy left>benign Family History Mother Hypertension Father Hypertension COPD (chronic obstructive pulmonary disease) Social History Smoking Status: Never smoker Second Hand Exposure: Yes (growing up); Do You Dip or Chew Tobacco: No; Hx Alcohol Use: No Hx Substance Use: No Preferred Language: Urdu Communication Ability: Effective 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 Physical Exam Physical Exam: General Appearance: WD/WN, vitals as above, NAD, sitting up in bed, pleasant, obese Head: normocephalic, atraumatic Eyes: normal inspection, PERRL, conjunctivae normal, anicteric sclerae ENT: external ear and nose normal, oropharynx normal Neck: normal visual inspection, trachea midline, no thyromegaly Respiratory: increased respiratory effort, bibasilar rales, scattered expiratory wheezes. No accessory muscle use Cardiovascular: regular rate, rhythm, normal peripheral pulses, 3+BLE edema. Vessels: difficult to assess JVD 2/2 habitus Chest: normal inspection of chest Abdomen/GI: normal bowel sounds, soft but distended, nontender, no hepatosplenomegaly Extremities/Musculoskeletal: no cyanosis or clubbing, extremities motor strength 5/5 Neurologic: PERRL, EOMI, accommodation nl, no face palsy, no dysarthria, CN's II-XI intact bilaterally and moves all extremities Psychiatric: A+Ox3, euthymic affect Skin: no rashes, normal color, warm/dry Results & Data Results & Data Vital Signs (Past 12 Hours) Vital Signs Temp Pulse Pulse Resp BP BP Pulse Ox 07/01/24 15:00 79 16 167/91 H 98 07/01/24 13:27 86 16 149/95 H 98 07/01/24 13:05 87 07/01/24 12:43 36.6 C 87 20 162/73 H 94 O2 Del Method 07/01/24 15:00 Room Air 07/01/24 13:27 Room Air 07/01/24 13:05 07/01/24 12:43 Room Air Laboratory Results Short CBC 07/01/24 Range/Units 13:04 WBC 5.16 (4.8-10.8) K/ul Hgb 9.6 L (12.0-16.0) g/dl Hct 27.9 L (37.0-47.0) % Plt Count 127 L (130-400) K/uL BMP 07/01/24 13:04 Sodium 138 Potassium 4.6 Chloride 106 Carbon Dioxide 24 BUN 22 Creatinine 1.45 H Glucose 165 H Calcium 9.3 Diagnostic Findings Chest X-Ray 07/01/24 12:54 XR chest 1V portable HISTORY: 64 years-old Female SOB acute shortness of breath COMPARISON: 04/10/2023 TECHNIQUE: AP view of the chest FINDINGS: Cardiomediastinal and hilar silhouettes are within normal limits. No pneumothorax, pleural effusion or airspace consolidation. Bones appear grossly intact. IMPRESSION: No acute process. ACT 112: Negative or not required by law. The above report was generated using voice recognition software. It may contain grammatical, syntax or spelling errors. Electronically signed by: Alfred Adames M.D. 07/01/2024 1:34 PM Supervising Physician Co-Signing Physician Notes Attending addendum: The patient was seen and examined in emergency room She has been complaining of weight gain of about 50 pounds for the last 2 months associated with feeling unwell and shortness of breath on exertion Denies any chest pain but complains of occasional palpitation No pain in the legs, no abdominal pain but has minimal nausea at times No fever and or chills On examination No apparent distress at rest Hemodynamically stable and is afebrile, saturating normally on room air with a blood pressure of 167/91 Chestbibasilar rales with decreased breath sounds both sides HeartS1, S2 regular, no murmur Abdomendistended, nontender and bowel sound present Extremitiesbilateral 2+ edema CNSalert, awake and oriented x 3. 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
[2024-07-01] MEDS ORDERED: GLUCOSE 40% GEL 15 GM TUBE PO PRN (16:14)
[2024-07-01] MEDS ORDERED: DEXTROSE 50% 50 ML SYRINGE IV PRN (16:14)
[2024-07-01] MEDS ORDERED: GLUCAGON FOR INJ 1 MG VIAL SQ PRN (16:14)
[2024-07-01] MEDS ORDERED: CARBOHYDRATES FOR HYPOGLYCEMIA PO PRN (16:14)
[2024-07-01] MEDS ORDERED: GLUCOSE 10 TAB/TUBE PO PRN (16:14)
[2024-07-01] MEDS: INSULIN ASPART PER UNIT CHARGE SC SCH (16:46)
[2024-07-01] MEDS ORDERED: ACETAMINOPHEN 325 MG TAB PO PRN (17:15)
[2024-07-01] MEDS ORDERED: ALBUTEROL HFA 8 GM INHALER INH PRN (17:15)
[2024-07-01 17:22] LABS: D Dimer 1590 ug/L FEU (0-500)
[2024-07-01] MEDS: hydrALAZINE HCL 20 MG/ML VIAL ONE (17:45)
[2024-07-01] MEDS: hydrALAZINE HCL 20 MG/ML VIAL IV STA (17:45)
[2024-07-01] MEDS ORDERED: TROLAMINE SALICYLATE 10% CRM 255 APPLN/85 GM TUBE EXT PRN (17:45)
--- NOTE | 2024-07-01 17:50 | Ultrasound Report ---
EXAM: US Duplex Bilateral Lower Extremities Veins INDICATION: Swelling. TECHNIQUE: Real-time duplex ultrasound scan of the bilateral lower extremity veins integrating B-mode two-dimensional vascular structure, Doppler spectral analysis, color flow Doppler imaging and compression. COMPARISON: No relevant prior studies available. FINDINGS: Limitations: Compression images could not be performed due to patient pain. Right deep veins: No DVT in the right common femoral, femoral or popliteal veins. The veins demonstrate normal color flow, are normally compressible, with normal phasic flow and/or augmentation response. Right superficial veins: No abnormality noted. No thrombus in the visualized right great saphenous vein. Left deep veins: No DVT in the left common femoral, femoral or popliteal veins. The veins demonstrate normal color flow, are normally compressible, with normal phasic flow and/or augmentation response. Left superficial veins: No abnormality noted. No thrombus in the visualized left great saphenous vein. Soft tissues: Subcutaneous edema noted. No fluid collection identified. IMPRESSION: Limited as above. No deep venous thrombosis of either lower extremity. ACT 112: Negative or not required by law. Electronically signed by Fidelia Gloria 07-01-2024 5:50 PM
--- NOTE | 2024-07-01 17:52 | Ultrasound Report ---
EXAM: US Abdomen Limited Right Upper Quadrant INDICATION: Evaluate for ascites. TECHNIQUE: Four-quadrant abdominal ultrasound performed to assess and quantify ascites. COMPARISON: No relevant prior studies available. FINDINGS: Moderate ascitic fluid identified in all quadrants. IMPRESSION: Moderate ascitic fluid identified in all quadrants. ACT 112: Negative or not required by law. Electronically signed by Fidelia Gloria 07-01-2024 5:52 PM
[2024-07-01] MEDS ORDERED: hydrALAZINE HCL 20 MG/ML VIAL IV PRN ×2 (18:10→21:00)
[2024-07-01] MEDS: APIXABAN 5 MG TABLET PO SCH (18:50)
[2024-07-01] MEDS: ONDANSETRON INJ 2 MG/ML 2 ML VIAL IV PRN (19:28)
[2024-07-01] MEDS: PANTOprazole 40 MG TAB PO SCH (20:13)
[2024-07-01] MEDS: FUROSEMIDE 40 MG/4 ML VIAL IV SCH (20:13)
[2024-07-01] MEDS: rOPINIRole HCL 0.25 MG TABLET PO SCH (20:13)
[2024-07-01] MEDS: METOPROLOL TARTRATE 25 MG TAB PO SCH (20:13)
[2024-07-01] MEDS: LANTUS PER UNIT CHARGE SQ SCH (20:27)
[2024-07-02 06:16] LABS: Hemoglobin 9.3 g/dl (12.0-16.0); Mean Corpuscular Hemoglobin 30.7 pg (25.0-34.0); Mean Corpuscular Hgb Conc 33.2 g/dL (32.0-36.0); Mean Corpuscular Volume 92.4 fL (80.0-100.0); Mean Platelet Volume 10.1 fL (9.4-12.4); Platelet Count 137 K/uL (130-400); RDW Coefficient of Variation 14.4 % (11.5-14.5); RDW Standard Deviation 48.5 fL (36.4-46.3); Red Blood Count 3.03 M/uL (4.20-5.40); White Blood Count 5.64 K/ul (4.8-10.8)
[2024-07-02 06:30] LABS: BUN Creatinine Ratio 15.9 (10-20); Calcium 8.8 mg/dl (8.6-10.3); Creatinine Clr Calc Pharmacy 43.6 ml/min; Magnesium 1.8 mg/dl (1.7-2.4); Potassium 4.4 mmol/L (3.5-5.1)
[2024-07-02 08:09] LABS: Estimated Average Glucose 148 mg/dl; Hemoglobin A1C 6.8 % (4.5-5.6)
--- NOTE | 2024-07-02 08:28 | Electrocardiogram Report ---
Test Reason : Blood Pressure : */* mmHG Vent. Rate : 78 BPM Atrial Rate : 78 BPM P-R Int : 174 ms QRS Dur : 80 ms QT Int : 394 ms P-R-T Axes : 40 68 37 degrees QTcB Int : 449 ms Normal sinus rhythm Low voltage QRS Abnormal ECG When compared with ECG of 01-Jul-2024 12:58, No significant change was found Confirmed by Jorge Warren ([id number]) on 07/02/2024 8:28:09 AM Referred By: NO PCP Confirmed By: Jorge Warren
--- NOTE | 2024-07-02 08:32 | Electrocardiogram Report ---
Test Reason : Blood Pressure : */* mmHG Vent. Rate : 74 BPM Atrial Rate : 74 BPM P-R Int : 166 ms QRS Dur : 82 ms QT Int : 416 ms P-R-T Axes : 44 83 43 degrees QTcB Int : 461 ms Normal sinus rhythm Low voltage QRS Borderline ECG When compared with ECG of 01-Jul-2024 17:43, No significant change was found Confirmed by Jorge Warren ([id number]) on 07/02/2024 8:32:22 AM Referred By: NO PCP Confirmed By: Jorge Warren
[2024-07-02] MEDS: SPIRONOLACTONE 100 MG TAB PO SCH (08:41)
[2024-07-02] MEDS: MULTIVITAMIN TAB PO SCH (08:41)
[2024-07-02] MEDS: ROSUVASTATIN CALCIUM 5 MG TAB PO SCH (08:41)
--- NOTE | 2024-07-02 11:33 | Hospitalist Progress Note ---
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 Volume overload Significant weight gain, 42 lbs since March per chart review Ran out of all medications, including torsemide and spironolactone 10 days ago due to insurance/cost issues BNP 185, clinically overloaded Given 40mg IV lasix in ED Continue 40mg IV lasix BID [place] in place for strict I&Os, daily weights No h/o CHF, 2D echo ordered to eval cardiac function Considering nephro involvement based on diuresis Echo of the heart showedthe left ventricular cavity is small, there is moderate concentric LVH, LV wall motion is normal with EF 60 to 65%, grade 1 diastolic dysfunction, aortic valve sclerosis moderate without significant stenosis, the mitral valve leaflets are mildly thickened there is no stenosis or insufficiency, there is trace tricuspid regurgitation and Doppler findings do not suggest pulmonary hypertension. 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 No eliquis for 10 days VSS, O2 saturation 98% on room air BLE duplex without evidence of DVT Unable to order CT PE now due to renal function, will proceed with VQ scan Eliquis resumed Awaiting VQ scan tomorrow- NAFLD cirrhosis Has not taken diuretics for 1+ week No confusion, moderate ascites on abdominal ultrasound Diuresis as above Will need to have GI follow-up as an outpatient HTN Resumed diuresis as above Not on other antihypertensives per home meds PRN labetalol for SBP >180 HLD Resumed statin DM II A1c 5.9 in 2022, repeat in AM - hemoglobin A1c is 6.8 Hold home agents Basal bolus insulin while inpatient nursing educator consult BSG AC HS CKD III Cr 1.45 today (baseline ~high 1s-2) Monitor BMP DVT Ppx: Eliquis Code status: FULL PCP: Cabrera Dispo: Admitted to PCU Will get PT and OT evaluation and possible discharge tomorrow Admission and Anticipated Discharge Date Admission Date: July 01, 2024 Subjective 07/02/2024 The patient was seen and examined in telemetry unit She has been feeling much better and is out of bed on a chair Denies any chest pain and/or palpitation Did have some nausea but no vomiting and no abdominal pain Review of Systems Review of Systems: All systems reviewed and are unremarkable except as noted below Physical Exam Physical Exam: Sitting on a chair without any acute distress Constitutional: well developed, well nourished, + ill appearing and + obese Eyes: PERRL, conjunctivae normal, anicteric sclerae ENMT: external ear and nose normal, oropharynx normal Neck: trachea midline, no thyromegaly Respiratory: no respiratory distress Auscultation: no crackles Cardiovascular: Rate/Rhythm: regular rate and regular rhythm; not tachycardic Heart Sounds: normal S1 and normal S2; no murmur Extremities: + edema ( 1- 2+ edema bilaterally. improved from yesterday) Gastrointestinal (Abdomen): Inspection/Auscultation: + abdomen distended and normal bowel sounds Percussion/Palpation: abdomen soft; abdomen nontender Musculoskeletal: No acute arthritis involving any of the joint Neurologic: normal touch/pain/proprioception and moves all extremities; no focal motor deficits Psychiatric: A+Ox3, euthymic affect Lymphatic: no cervical or axillary lymphadenopathy Results & Data Results & Data Vital Signs (Past 12 Hours) Vital Signs Temp Pulse Pulse Resp BP Pulse Ox O2 Del Method 07/02/24 10:34 36.7 C 63 16 106/67 97 Room Air 07/02/24 09:30 Room Air 07/02/24 08:00 71 07/02/24 07:04 37.0 C 70 17 116/71 95 Room Air 07/02/24 03:03 36.8 C 68 16 125/71 96 Room Air Laboratory Results Short CBC 07/01/24 07/02/24 Range/Units 13:04 05:27 WBC 5.16 5.64 (4.8-10.8) K/ul Hgb 9.6 L 9.3 L (12.0-16.0) g/dl Hct 27.9 L 28.0 L (37.0-47.0) % Plt Count 127 L 137 (130-400) K/uL BMP 07/01/24 07/02/24 13:04 05:27 Sodium 138 139 Potassium 4.6 4.4 Chloride 106 108 H Carbon Dioxide 24 24 BUN 22 27 H Creatinine 1.45 H 1.70 H Glucose 165 H 165 H Calcium 9.3 8.8 Medications Administered Current Inpatient Medications Acetaminophen (Acetaminophen 325 Mg Tab) 650 mg PO Q4H PRN PRN Reason: Pain or Fever Stop: 07/31/24 17:14 Albuterol (Albuterol Hfa 8 Gm Inhaler) 2 puffs INH QID PRN PRN Reason: wheezing/SOB Stop: 07/31/24 17:14 Apixaban (Apixaban 5 Mg Tablet) 5 mg PO Q12H LETI Stop: 07/31/24 17:59 Last Admin: 07/02/24 05:08 Dose: 5 mg Dextrose (Dextrose 50% 50 Ml Syringe) 25 - 50 ml IV UD PRN; Protocol PRN Reason: Hypoglycemia Protocol Stop: 07/31/24 16:13 Docusate Sodium (Docusate Sodium 100 Mg Cap) 100 mg PO DAILY PRN PRN Reason: Constipation Stop: 07/31/24 17:14 Furosemide (Furosemide 40 Mg/4 Ml Vial) 40 mg IV BID [facility] Stop: 07/31/24 20:59 Last Admin: 07/02/24 08:40 Dose: 40 mg Glucagon (Glucagon For Inj 1 Mg Vial) 1 mg SQ UD PRN; Protocol PRN Reason: Hypoglycemia Protocol Stop: 07/31/24 16:13 Glucose (Glucose 40% Gel 15 Gm Tube) 15 - 30 gm PO UD PRN; Protocol PRN Reason: Hypoglycemia Protocol Stop: 07/31/24 16:13 Glucose (Glucose 10 Tab/Tube) 4 - 8 tab PO UD PRN; Protocol PRN Reason: Hypoglycemia Protocol Stop: 07/31/24 16:13 Hydralazine HCl (Hydralazine Hcl 20 Mg/Ml Vial) 10 mg IV Q6H PRN PRN Reason: SBP >170 or DBP >105 Stop: 07/31/24 20:59 Insulin Aspart (Insulin Aspart Per Unit Charge) 0 units SC ACHS [facility] Stop: 07/31/24 16:29 Last Admin: 07/02/24 08:48 Dose: 6 units Insulin Glargine (Lantus Per Unit Charge) 0 - 10 units SQ BID [facility] Stop: 07/31/24 20:59 Last Admin: 07/02/24 08:48 Dose: 5 units Metoprolol Tartrate (Metoprolol Tartrate 25 Mg Tab) 25 mg PO BID [facility] Stop: 07/31/24 20:59 Last Admin: 07/02/24 08:41 Dose: 25 mg Miscellaneous (Carbohydrates For Hypoglycemia ) 15 - 30 gm PO UD PRN PRN Reason: Hypoglycemia Protocol Stop: 07/31/24 16:13 Multivitamins (Multivitamin Tab) 1 tab PO QAM [facility] Stop: 08/01/24 08:59 Last Admin: 07/02/24 08:41 Dose: 1 tab Ondansetron HCl (Ondansetron Inj 2 Mg/Ml 2 Ml Vial) 4 mg IV Q6H PRN PRN Reason: Nausea Stop: 07/31/24 17:14 Last Admin: 07/01/24 19:28 Dose: 4 mg Pantoprazole Sodium (Pantoprazole 40 Mg Tab) 40 mg PO BID [facility] Stop: 07/31/24 20:59 Last Admin: 07/02/24 08:41 Dose: 40 mg Polyethylene Glycol (Polyethylene (Miralax) 17 Gm Pack) 17 gm PO DAILY PRN PRN Reason: Constipation Stop: 07/31/24 17:14 Ropinirole HCl (Ropinirole Hcl 0.25 Mg Tablet) 0.25 mg PO HS [facility] Stop: 07/31/24 20:59 Last Admin: 07/01/24 20:13 Dose: 0.25 mg Rosuvastatin Calcium (Rosuvastatin Calcium 5 Mg Tab) 5 mg PO QAM [facility] Stop: 08/01/24 08:59 Last Admin: 07/02/24 08:41 Dose: 5 mg Spironolactone (Spironolactone 100 Mg Tab) 100 mg PO QAM [facility] Stop: 08/01/24 08:59 Last Admin: 07/02/24 08:41 Dose: 100 mg Tramadol HCl (Tramadol Hcl 50 Mg Tablet) 50 mg PO Q6H PRN PRN Reason: Pain Stop: 07/31/24 17:14 Trolamine Salicylate (Trolamine Salicylate 10% Crm 255 Appln/85 Gm Tube) 1 appln EXT BID PRN PRN Reason: Pain Stop: 07/31/24 17:44
--- NOTE | 2024-07-02 13:19 | Electrocardiogram Report ---
Test Reason : Blood Pressure : */* mmHG Vent. Rate : 63 BPM Atrial Rate : 63 BPM P-R Int : 178 ms QRS Dur : 82 ms QT Int : 434 ms P-R-T Axes : 45 95 77 degrees QTcB Int : 444 ms Normal sinus rhythm Rightward axis Low voltage QRS Borderline ECG When compared with ECG of 02-Jul-2024 05:14, No significant change was found Confirmed by Jorge Warren ([id number]) on 07/02/2024 1:19:20 PM Referred By: NO PCP Confirmed By: Jorge Warren
--- OUTSIDE RECORDS SUMMARY | 2024-07-03 03:06 | External Medical Summary | Summary of Care ---
Author Name Unknown Organization [facility] Address [address] [place] [address] Phone [phone] Care Team Providers Care Inset Cutter Name Role Phone Cabrera SCALES MD, Jonathan Potter Primary Care Provider [phone] Reason for Visit * Reason Onset Date Comments Appointment 04/11/2024 Encounter Details Date Type Department Care Team (Late st Contact Info) Description 04/11/2024 Telephone Pulmonary Medicine Serjio Quintanilla [address] [place] [phone] Fransico Padilla MD [address] [place] [phone] Appointment Allergies Active Allergy Reactions Criticality Noted Date Comments Metolazone 07/16/2023 Severe Electrolyte imbalance needing Hospital admission Morphine Sulfate Nausea/vomiting 04/26/2009 documented as of this encounter (statuses as of 05/12/2024) Medications Medication Sig Dispensed Refills Start Date End Date Status analgesic balm (BLAINE JENNINGS) 15% OINTIndications:Knee pain twice daily as needed (STOP PAIN) 1 Tube 11 01/30/2015 Active OneTouch Verio w/Device Kit Use up to 4 times a day E11.9 1 Kit 01/06/2022 Active Albumin Human 25 % Intravenous Solution Infuse 25g albumin pre paracentesis. If fluid removed is >5L, please infuse 25g post paracentesis. Run at 100mL/hr. 200 mL 04/27/2022 Active Vitamin D 25 MCG (1000 UT) Oral Tablet Take by mouth first thing in the morning . Active Eliquis 5 MG Oral Tablet Take by one tablet by mouth every 12 hours . 180 Tablet 3 02/09/2023 Active ProAir HFA 108 (90 Base) MCG/ACT Inhalation Aerosol SolutionIndications: Moderate persistent asthma without complication Inhale 2 Puffs by mouth in the morning and 2 Puffs at noon and 2 Puffs in the evening and 2 Puffs before bedtime. 18 g 3 02/09/2023 Active Additional Information Patient taking differently:2 Puff InhalationQID PRN, Reported on 05/17/2023 Docusate Sodium 100 MG Oral Capsule (Colace)Indications: Constipation, unspecified constipation type Take 1 Capsule by mouth 2 times a day as needed. Active Methyl Qlebjiedvf-Lpby-Atrn hol 2-4-1 % External Patch 2 times a day. 02/25/2023 Active OneTouch Delica Plus [id number] USE TWICE DAILY 200 Each 3 04/19/2023 Active OneTouch Verio In Vitro Strip (Glucose Blood) USE DIRECTED TWO TIMES A DAY 200 Strip 3 04/19/2023 Active Unifine Pentips 31G X 8 MM (Insulin Pen Needle)Indications:D M type 2, not at goal (HCC) use 4 times daily as directed (Novolog & Lantus) 400 Each 3 04/27/2023 Active Insulin Glargine Solostar 100 UNIT/ML Subcutaneous Solution Pen-injector (Lantus SoloStar)Indications :DM type 2, not at goal (HCC) INJECT 25 units UNDER THE SKIN daily in the morning 30 mL 3 04/27/2023 Active Additional Information Patient taking differently: INJECT 21 units UNDER THE SKIN daily in the morning, Reported on 05/19/2023 NovoLOG FlexPen 100 UNIT/ML Subcutaneous Solution Pen-injector (insulin aspart)Indications:T ype 2 diabetes mellitus with stage 4 chronic kidney disease, unspecified whether tank terminal gauger insulin use (HCC) Inject 5 Units under the skin in the morning and 5 Units at noon and 5 Units in the evening. Inject with meals. 15 mL 3 04/27/2023 Active Torsemide 20 MG Oral Tablet (Demadex) Take 1 Tablet by mouth in the morning. 90 Tablet 3 05/23/2023 Active Spironolactone 50 MG Oral Tablet (Aldactone)Indicatio ns:Chronic kidney disease, stage 3b (HCC) Take 2 Tablets by mouth in the morning. 180 Tablet 3 05/23/2023 Active Eylea 2 MG/0.05ML Intravitreal Solution Prefilled Syringe 05/29/2023 Active Multivitamin Adult Oral Tablet Take 1 Tablet by mouth in the morning. Active Empagliflozin 10 MG Oral Tablet (Jardiance) Take 1 Tablet by mouth in the morning. 90 Tablet 3 08/04/2023 Active Pantoprazole Sodium 20 MG Oral Tablet Delayed Release (Protonix) Take 1 Tablet by mouth 2 times a day with morning and evening meals. 180 Tablet 1 01/14/2024 Active traMADol HCl 50 MG Oral Tablet (Ultram)Indications: Chronic thoracic back pain, unspecified back pain laterality TAKE 1 TABLET BY MOUTH EVERY 6 HOURS NEEDED FOR MODERATE PAIN 30 Tablet 01/14/2024 Active rOPINIRole HCl 0.25 MG Oral Tablet (Requip)Indications: RLS (restless legs syndrome) Take 1 Tablet by mouth at bedtime. 90 Tablet 3 03/23/2024 Active Diclofenac Sodium 1 % External Gel (Voltaren) Apply topically to back of knees 2 times a day. 400 g 6 03/23/2024 Active Rosuvastatin Calcium 5 MG Oral Tablet (Crestor)Indications :Hyperlipidemia, unspecified hyperlipidemia type Take 1 Tablet by mouth in the morning. 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 OSTEOARTHROS NOS-L-LEG 09/01/2002 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 09/01/2002 Overview: ICD-10 update of inactive term documented as of this encounter (statuses as of 05/12/2024) Resolved Problems Problem Noted Date Diagnosed Date Resolved Date 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 07/30/2022 04/13/2023 Obesity, morbid (more than 1 00 lbs over ideal weight or BMI > 40) 01/07/2010 07/30/2022 Overview: Per Obesity Protocol, #19 ICD-10 update of inactive term DM type 2, not at goal 04/22/200905/19 Asthma with severity to be determined 05/10/2000 06/27/2013 Overview: ICD-10 update of inactive term documented as of this encounter (statuses as of 05/12/2024) Immunizations Name Administration Dates Next Due COVID-19 mRNA, LNP-s, No Pre serve, 2-Dose Series ([employer]) 11/29/2020,11/08/2020 Covid-19, Mrna, Lnp-s, Pf, B ivalent, 30 Mcg, IM, 12 yrs and above (Pfizer) 08/10/2022 H1N1 2009 Influenza, IM 11/04/2009 Hepatitis B, 20+ yrs 07/13/2013,06/08/2013 Pneumococcal Conjugate Vacci ne, 20-valent ([place]59) 02/15/2023 Pneumococcal Polysaccharide PPV23 (Pneumovax) 04/26/2009 Seasonal Influenza Vac., MDV , IM, 0.5 mL (Fluzone) 05/16/2014,10/20/2012,07/14/2011,07/24,06/06/2009,07/08/2000 Seasonal Influenza, MDCK, Tr ivalent, PF, (Flucelvax) 06/08/2013 Seasonal Influenza, PF, 6 M & above, IM , (FluLaval or Fluzone) 04/13/2023,05/29/2022,06/03/2021,05/03,05/10/2018 Seasonal Influenza, Quadriva lent, No Preserve, IM 04/06/2017 Seasonal Influenza, Trivalen t, (IIV3), PF, (Fluzone) 04/11/2024 TD - Tetanus/Diptheria (ADULT) 06/02/2003 TDAP (age 10 and older)(Boostrix) 06/12/2022 TDAP, Age 7 and older, IM (Adacel) 07/14/2011 Zoster Vaccine Recombinant (Shingrix) 10/26/2022 ,06/12/2022 documented as of this encounter Social History Tobacco Use Types Packs/Day Years Used Date Smoking Tobacco: Never Smokeless Tobacco: Never Alcohol Use Standard Drinks/Week Comments No 0 (1 standard drink = 0.6 oz pur e alcohol) in the past, PHQ-2 Answer Date Recorded PHQ Adult Total Score 0 05/01/2022 Hunger Vital Sign Answer Date Recorded Within the past 12 months, y ou worried that your food would run out before you got the money to buy more. Sometimes true Within the past 12 months, t he food you bought just didn't last and you didn't have money to get more. Sometimes true Childcare Answer Date Recorded Do you feel overwhelmed with taking care of a child, family member or friend? No 04/13/2023 Does your family need help f inding childcare? (Household - for ages 0-17 years) Not on file 04/13/2023 Clothing Answer Date Recorded Have you been unable to get clothing when it was really needed? No 04/13/2023 Is your family able to get c lothes or diapers when needed? (Household - for ages 0-17 years) Not on file 04/13/2023 Personal Safety Answer Date Recorded Do you feel unsafe or have concerns for your saf ety? No 04/13/2023 Do you have concerns for you r family's safety? (Household - for ages 0-17 years) Not on file 04/13/2023 Utilities Answer Date Recorded Do you have trouble paying y our heating, water, or electric bill? (Adult - for ages 18 years and over) Not on file 04/13/2024 Is your family able to pay t he heat, water, or electric bill? (Household - for ages 0-17 years) Not on file 04/13/2024 Does your family have access to good internet? (Household - for ages 0-17 years) Not on file 04/13/2024 Employment Status Answer Date Recorded Are you unemployed or without regular income? No 04/13/2023 Does the household have a re gular source of income? (Household - for ages 0-17 years) Not on file 04/13/2023 Social Connections Answer Date Recorded How often do you feel lonely or isolated from those around you? (Adult - for ages 18 years and over) Not on file 04/13/2024 Financial Resource Strain Answer Date R ecorded Do you have any trouble payi ng for your medications, or do you think you might in the future? No 04/13/2023 Does your family have troubl e paying for medicine? (Household - for ages 0-17 years) Not on file 04/13/2023 Transportation Needs Answer Date Record ed READ ONLY Do you have troubl e getting a ride to medical visits or work? Never True 04/13/2023 Does your family have a hard time getting a ride to doctors visits? (Household - for ages 0-17 years) Not on file 04/13/2023 Has lack of transportation k ept you from medical appointments, meetings, work, or from getting things needed for daily living? Check all that apply. (Adult - for ages 18 years and over) Not on file 04/13/2023 Do you (or your family) have trouble finding or paying for a ride (transportation)? (Household - for ages 0-17 years) Not on file 04/13/2023 Housing Stability Answer Date Recorded Do you currently live in a s helter or have no steady place to sleep at night? No 04/13/2023 READ ONLY Do you think you a re at risk of becoming homeless? No 04/13/2023 Does your family worry about paying for your home or becoming homeless? (Household - for ages 0-17 years) Not on file 0 04/13/2023 Are you homeless or worried that you might be in the future? (Adult - for ages 18 years and over) Not on file Are you (or your family) mynor eless or worried that you might be in the future? (Household - for ages 0-17 years) Not on file Food Insecurity Answer Date Recorded Do you need food for this week? No 04/13/2023 Are you able to get enough f ood for your family? (Household - for ages 0-17 years) Not on file 04/13/2023 Does your family need food t his week? (Household - for ages 0-17 years) Not on file 04/13/2023 Do you always have enough fo od for your family? (Household - for ages 0-17 years) Not on file 04/13/2023 Sex and Gender Information Value Date Recorded Sex Assigned at Female 02/21/2022 9:08 PM EDT Gender Identity Female 02/21/2022 9:08 PM EDT Sexual Orientation Straight 02/21/2022 9: 08 PM EDT Job Start Date Occupation Industry Not on file Not on file Not on file documented as of this encounter Miscellaneous Notes * Telephone Encounter - Jenniffer Newberry OSA - 05/12/2024 3:58 PM EDT Sending letter * Telephone Encounter - Jenniffer Newberry OSA - 04/26/2024 11:32 AM EDT Called pt again and vm not set up . Could not leave a message * Telephone Encounter - Jenniffer Newberry OSA - 04/13/2024 8:23 AM EDT I would prefer to see her as I know her well. If she can be added on Wednesday after my endo day at [facility] or at lunch hour (12:15) that would be great thanks. Called patient to get setup with an appt.. I could not hear patient , there was not connection and she hung up. Pt needs an appt Wednesday at [facility] at [address] Mace * Telephone Encounter - Jenniffer Newberry OSA - 04/12/2024 9:59 AM EDT Pt being referred for a 3 day urgent hep appt. 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 Need re eval for Paracentesis. Last Para > 1 yr ago. Now with increased discomfort and DAMICO, Can anyone see pt sooner rather then later. Pt was to come 1 year in December and pt is on recall. Schedules are full. Pt goes to [facility]. * Telephone Encounter - Christina Gaines OSA - 04/11/2024 12:17 PM EDT Pt needs a hep. referral and a nocturnal test. Please schedule with pt Thank you documented in this encounter Plan of Treatment Upcoming Encounters Date Type Department Care Team (Late st Contact Info) Description 07/11/2024 10:20 AM EST Office Visit Pulmonary Medicine, [facility] [address] [place] [address] Fransico Padilla MD [address] [facility] [address] 09/14/2024 2:20 PM EST Office Visit Nephrology, [facility] [place] [address] [place] [address] Cali Brown MD [address] [place] [address] Scheduled Procedures Name Priority Associated Diagnoses Date/Ti me COLONOSCOPY FLEXIBLE PROXIMAL DIAGNOSTIC Recall Screen for colon cancer Health Maintenance Due Date Last Done Comments Fecal Occult Blood Test 2007 Sigmoidoscopy 2007 Hepatitis B Vaccine (3 of 3 - Risk 3-dose series) 12/06/2013 07/13/2013, 06/08/2013 Cologuard 05/03/2022 05/03/2019 Depression Screening 05/01/2023 05/01/2022 Mammogram 06/17/2023 06/17/2022, 1110/2021, 08/18/2018, Additional history exists HbA1c 11/18/2023 05/19/2023, 01/24, 08/03/2022, Additional history exists Albumin/Creatinine Ratio 02/17/2024 023, 01/27/2022, 11/15/2018, Additional history exists COVID-19 Vaccine ( season) 2024 08/10/2022, 11/29/2020, 11/08/2020 Diabetic Foot Exam 05/19/2024 05/19/2023, 1 , 02/25/2017, Additional history exists GFR 05/23/2024 11/22/2023, 06/26, 06/10/2023, Additional history exists CKD PHOS USE SMARTSET 70304 07/16/202406/26, 03/11/2023, 08/03/2022 CKD HGB USE SMARTSET [id number] 11/21/202411/21, 07/16/2023, 07/16/2023, Additional history exists Diabetic Eye Exam 01/17/2025 01/18/2024, , 12/13/2023, Additional history exists Pap Smear 05/19/2026 05/19/2023, 05/31/2009 Lipid Panel 08/03/2027 08/03/2022, 02/23, 11/15/2018, Additional history exists Cervical Cancer Screening 05/19/2028 HPV/Co-Test 05/19/2028 05/19/2023 Colonoscopy 06/05/2032 06/05/2022, 06/05/2022 Colorectal Cancer Screening 06/05/2032 DTap/Tdap Vaccines (3 - Td or Tdap) 06/12/2032 06/12/2022, 07/14/2011, 06/02/2003 Zoster Vaccines Completed 10/26/2022, 06/12/2022 Pneumococcal Vaccine: Pediatrics (0 to 5 Years) and At-Risk Patients (6 to 64 Years) Completed 02/15/2023, 04/26/2009 Influenza Vaccine (FLU shot) Completed , 04/13/2023, 05/29/2022, Additional history exists HPV (Gardasil) Vaccine Aged Out No lo nger eligible based on patient's age to complete this topic MENINGOCOCCAL (MENACTRA/MENVEO) Aged Out No longer eligible based on patient's age to complete this topic documented as of this encounter Medical Devices Not on filedocumented as of this encounter Care Teams Inset Cutter Relationship Specialty Start Date End Date Gaines Jonathan SCALES MD [address] [facility] [address] PCP - General 03/09/1996 documented as of this encounter
--- OUTSIDE RECORDS SUMMARY | 2024-07-03 03:07 | External Medical Summary | Summary of Care ---
Author Name Unknown Organization [facility] Address [address] [facility] [place] [address] Phone [phone] Care Team Providers Care Workers Compensation Manager Name Role Phone Cabrera SCALES MD, Jonathan Potter Primary Care Provider [phone] Reason for Visit * Reason Onset Date Comments Other 02/04/2024 Encounter Details Date Type Department Care Team (Late st Contact Info) Description 02/04/2024 Telephone Family Practice [facility] [place] 200 [facility] [place] [address] Jonathan Rees III, MD [address] [facility] [address] Other Allergies Active Allergy Reactions Criticality Noted Date Comments Metolazone 07/16/2023 Severe Electrolyte imbalance needing Hospital admission Morphine Sulfate Nausea/vomiting 04/26/2009 documented as of this encounter (statuses as of 02/09/2024) Medications Medication Sig Dispensed Refills Start Date [...] differently:2 Puff InhalationQID PRN, Reported on 05/17/2023 Rosuvastatin Calcium 5 MG Oral Tablet (Crestor)Indications :Hyperlipidemia, unspecified hyperlipidemia type Take 1 Tablet by mouth in the morning. 90 Tablet 3 02/09/2023 Active Diclofenac Sodium 1 % External Gel (Voltaren) Apply topically to affected area 2 times a day. Apply to back knees 400 g 6 02/15/2023 Active Docusate Sodium 100 MG Oral Capsule (Colace)Indications: Constipation, unspecified constipation type Take 1 Capsule by mouth 2 times a day as needed. Active rOPINIRole HCl 0.25 MG Oral Tablet (Requip)Indications: RLS (restless legs syndrome) Take 1 Tablet by mouth at bedtime. 90 Tablet 3 03/08/2023 Active Methyl Mrjlvvkbzw-Yaes-Qhmg hol 2-4-1 % External Patch 2 times a day. 02/25/2023 Active OneTouch Delica Plus [id number] USE TWICE DAILY 200 Each 3 04/19/2023 [...] stage 4 chronic kidney disease, unspecified whether skilled nursing insulin use (HCC) Inject 5 Units under [...] FOR MODERATE PAIN 30 Tablet 01/14/2024 Active Hospital, Clinic, or Other Facility Administered Medication Ordered Dose Route Frequency Start Date End Date Status Albuterol Sulfate (Proventil) (2.5 MG/3ML) 0.083% inhalation solution 2.5 mgIndications:Moderate persistent asthma without complication 2.5 mg NEBULIZER PRN 02/11/2023 02/11/2024 Acti ve Albuterol Sulfate (Proventil) (5 MG/ML) 0.5% *conc* inhalation solution 2.5 mgIndications:Moderate persistent asthma without complication 2.5 mg NEBULIZER PRN 02/11/2023 02/11/2024 Acti ve documented as of this encounter (statuses as of 02/09/2024) Active Problems Problem Noted Date Diagnosed Date Food insecurity 07/05/2023 Overview: Per [facility] Protocol Chronic diastolic heart failure [...] as of this encounter (statuses as of 02/09/2024) Resolved Problems Problem Noted Date Diagnosed Date [...] as of this encounter (statuses as of 02/09/2024) Immunizations Name Administration Dates Next Due COVID-19 mRNA, LNP-s, No Pre serve, 2-Dose Series (Sitesimon) 11/29/2020,11/08/2020 Covid-19, Mrna, Lnp-s, Pf, B ivalent, 30 Mcg, IM, 12 yrs and above (Pfizer) 08/10/2022 H1N1 2009 Influenza, IM 11/04/2009 Hepatitis B, 20+ yrs 07/13/2013,06/08/2013 Pneumococcal Conjugate Vacci ne, 20-valent ([id number]) 02/15/2023 Pneumococcal Polysaccharide PPV23 (Pneumovax) 04/26/2009 Season Influenza, Cell Cultu re, 18+ Yrs, With Preserv (Flucelvax) 06/08/2013 Seasonal Influenza, PF, 6 M & above, IM , (FluLaval or Fluzone) 04/13/2023,05/29/2022,06/03/2021,05/03,05/10/2018 Seasonal Influenza, Quadriva lent, No Preserve, IM 04/06/2017 Seasonal Influenza, Split, I IV3, With Preserve, Inj 05/16/2014,10/20/2012,07/14/2011,07/24,06/06/2009,07/08/2000 TD - Tetanus/Diptheria (ADULT) 06/02/2003 TDAP (age [...] y our heating, water, or electric bill? No 04/13/2023 Is your family able to pay t he heat, water, or electric bill? (Household - for ages 0-17 years) Not on file 04/13/2023 Does your family have access to good internet? (Household - for ages 0-17 years) Not on file 04/13/2023 Employment Status Answer Date Recorded Are you unemployed or without regular income? No 04/13/2023 Does the household have a re gular source of income? (Household - for ages 0-17 years) Not on file 04/13/2023 Social Connections Answer Date Recorded How often do you feel lonely or isolated from th ose around you? Never 04/13/2023 Financial Resource Strain Answer Date R ecorded [...] 18 years and over) Not on file 3 Are you (or your family) mynor eless [...] encounter Miscellaneous Notes * Telephone Encounter - Naresh Vera cash applications coordinator - 02/09/2024 1:59 PM EDT Returning call to check status of prior auth. Mohini martin discovered prior auth was from an external ophthalmology department. Thank you, Naresh Vrea Manager Post I [facility] ([facility]) 02/09/2024,2:00 PM * Telephone Encounter - Tara Toure CPhT - 02/07/2024 3:26 PM EDT Karl macedo [facility] is calling in regarding Ozurdex who was prescribed by Polo Tsai. No notes documented, regarding this Rx. Transferred to nurse's line. Thank you, Tara Toure Industrial Staff Nurse [facility] ([facility]) 02/07/2024, 3:28 PM * Telephone Encounter - Erica Mcmanus PHARM Tech - 02/04/2024 4:06 PM EDT Karl from [facility] calling regarding Ozurdex from Polo Tsai - transferred to provider's line. ThanksErica Director Of Women'S Services III [facility] ([facility]) 02/04/2024,4:07 PM documented in this encounter Plan of Treatment Upcoming Encounters Date Type Department Care Team (Late st Contact Info) Description 09/14/2024 2:20 PM EST Office Visit Nephrology, [place] 200 [facility] [place] [address] Cali Brown MD 200 [place] [address] Scheduled Procedures Name Priority Associated Diagnoses Date/Ti me COLONOSCOPY FLEXIBLE PROXIMAL DIAGNOSTIC Recall Screen for colon cancer Health Maintenance Due Date Last Done Comments Fecal Occult Blood Test 2007 Sigmoidoscopy 2007 Hepatitis B Vaccine (3 of 3 - Risk 3-dose series) 12/06/2013 07/13/2013, 06/08/2013 Cologuard 05/03/2022 05/03/2019 COVID-19 Vaccine ( season) 2023 08/10/2022, 11/29/2020, 11/08/2020 Depression Screening 05/01/2023 05/01/2022 Mammogram 06/17/2023 06/17/2022, 110 10/2021, 08/18/2018, Additional history exists HbA1c 11/18/2023 05/19/2023, 01/24, 08/03/2022, Additional history exists Albumin/Creatinine Ratio 02/17/2024 023, 01/27/2022, 11/15/2018, Additional history exists Influenza Vaccine (FLU shot) (#1) 2024 04/13/2023, 05/29/2022, 06/03/2021, Additional history exists Diabetic Foot Exam 05/19/2024 05/19/2023, 1 , 02/25/2017, Additional history exists GFR 05/23/2024 11/22/2023, 06/26, 06/10/2023, Additional history exists CKD PHOS USE SMARTSET 79605 07/16/202406/26, 03/11/2023, 08/03/2022 CKD HGB USE SMARTSET 61537 11/21/202411/21, 07/16/2023, 07/16/2023, Additional history exists Diabetic Eye Exam 01/17/2025 01/18/2024, , 12/13/2023, Additional history exists Pap Smear 05/19/2026 05/19/2023, 05/31/2009 Lipid Panel 08/03/2027 08/03/2022, 02/23, 11/15/2018, Additional history exists Cervical Cancer Screening 05/19/2028 HPV/Co-Test 05/19/2028 05/19/2023 Colonoscopy 06/05/2032 06/05/2022, 06/05/2022 Colorectal Cancer Screening 06/05/2032 DTaP,Tdap,and Td Vaccines (3 - Td or Tdap) 06/12/2032 06/12/2022, 07/14/2011, 06/02/2003 Zoster Vaccines Completed 10/26/2022, 06/12/2022 Pneumococcal Vaccine: Pediatrics (0 to 5 Years) and At-Risk Patients (6 to 64 Years) Completed 02/15/2023, 04/26/2009 HPV (Gardasil) Vaccine Aged Out No lo nger eligible based on patient's age to complete this topic MENINGOCOCCAL (MENACTRA/MENVEO) Aged Out No longer eligible based on patient's age to complete this topic documented as of this encounter Medical Devices Not on filedocumented as of this encounter Care Teams Workers Compensation Manager Relationship Specialty Start Date End Date Windsor III, Jonathan Potter MD [address] [place] [address] PCP - General 03/09/1996 documented as of this encounter
--- OUTSIDE RECORDS SUMMARY | 2024-07-03 03:07 | External Medical Summary | Summary of Care ---
Author Name Unknown Organization [facility] Address [address] [facility] [place] [address] Phone [phone] Care Team Providers Care Title I Paraprofessional Name Role Phone Cabrera SCALES MD, Jonathan Potter Primary Care Provider [phone] Reason for Visit * Reason Onset Date Comments Other 02/04/2024 Encounter Details Date Type Department Care Team (Late st Contact Info) Description 02/04/2024 Telephone Family Practice [facility] [place] 200 [facility] [place] [address] Jonathan Rees III, MD [facility] [address] Other Allergies Active Allergy Reactions Criticality Noted [...] bedtime. 90 Tablet 3 03/08/2023 Active Methyl Tivilvstva-Qzhg-Apoq hol 2-4-1 % External Patch 2 times a day. 02/25/2023 Active OneTouch Delica Plus [id number] USE TWICE DAILY 200 Each 3 04/19/2023 [...] stage 4 chronic kidney disease, unspecified whether halfway insulin use (HCC) Inject 5 Units under [...] mRNA, LNP-s, No Pre serve, 2-Dose Series ([email or web address]) 11/29/2020,11/08/2020 Covid-19, Mrna, Lnp-s, Pf, B ivalent, 30 Mcg, IM, 12 yrs and above (Pfizer) 08/10/2022 H1N1 2009 Influenza, IM 11/04/2009 Hepatitis B, 20+ yrs 07/13/2013,06/08/2013 Pneumococcal Conjugate Vacci ne, 20-valent ([email or web address]) 02/15/2023 Pneumococcal Polysaccharide PPV23 (Pneumovax) 04/26/2009 Season [...] encounter Miscellaneous Notes * Telephone Encounter - Tara Toure CPhT - 02/07/2024 3:26 PM EDT Karl from [facility] is calling in regarding Ozurdex who was prescribed by Polo Tsai. No notes documented, regarding this Rx. Transferred to nurse's line. Thank you, Tara Toure Family Practice Md [facility] ([facility]) 02/07/2024, 3:28 PM * Telephone Encounter - Erica Mcmanus civil manager - 02/04/2024 4:06 PM EDT Karl from [facility] calling regarding Ozurdex from Polo Tsai - transferred to provider's line. Thanks, Erica Mcmanus Six Sigma Black Belt Engineer III [facility] ([facility]) 02/04/2024,4:07 PM documented in this encounter Plan of Treatment Upcoming Encounters Date Type Department Care Team (Late st Contact Info) Description 09/14/2024 2:20 PM EST Office Visit Nephrology, [place] [address] [place], [place] [address] Cali Brown MD [address] [place] [address] Scheduled Procedures Name Priority Associated Diagnoses Date/Ti me COLONOSCOPY FLEXIBLE PROXIMAL DIAGNOSTIC Recall Screen for colon cancer Health Maintenance Due Date Last Done Comments Fecal Occult Blood Test 2007 Sigmoidoscopy 2007 Hepatitis B Vaccine (3 of 3 - Risk 3-dose series) 12/06/2013 07/13/2013, 06/08/2013 Cologuard 05/03/2022 05/03/2019 COVID-19 Vaccine ( season) 2023 08/10/2022, 11/29/2020, 11/08/2020 Depression Screening 05/01/2023 05/01/2022 Mammogram 06/17/2023 06/17/2022, 10/2021, 08/18/2018, Additional history exists HbA1c 11/18/2023 05/19/2023, 01/24, 08/03/2022, Additional history exists Albumin/Creatinine Ratio 02/17/2024 023, 01/27/2022, 11/15/2018, Additional history exists Influenza Vaccine (FLU shot) (#1) 2024 04/13/2023, 05/29/2022, 06/03/2021, Additional history exists Diabetic Foot Exam 05/19/2024 05/19/2023, 1 , 02/25/2017, Additional history exists GFR 05/23/2024 11/22/2023, 06/26, 06/10/2023, Additional history exists CKD PHOS USE SMARTSET 98334 07/16/202406/26, 03/11/2023, 08/03/2022 CKD HGB USE SMARTSET 48980 11/21/202411/21, 07/16/2023, 07/16/2023, Additional history exists Diabetic [...] filedocumented as of this encounter Care Teams Title I Paraprofessional Relationship Specialty Start Date End Date Jonathan Rees III, MD [address] [place] [address] PCP - General 03/09/1996 documented as of this encounter
--- OUTSIDE RECORDS SUMMARY | 2024-07-03 03:07 | External Medical Summary | Summary of Care ---
Author Name Unknown Organization [facility] Address [address] [facility] [place] [address] Phone [phone] Care Team Providers Care Salesperson [employer] Name Role Phone Cabrera SCALES MD, Jonathan Potter Primary Care Provider [phone] Reason for Visit * Reason Onset Date Comments Appointment 04/11/2024 Encounter Details Date Type Department Care Team (Late st Contact Info) Description 04/11/2024 Telephone Pulmonary Medicine Serjio Quintanilla [address] [place] [address] Fransico Padilla MD [address] [place] [address] Appointment Allergies Active Allergy Reactions Criticality Noted Date Comments Metolazone 07/16/2023 Severe Electrolyte imbalance needing Hospital admission Morphine Sulfate Nausea/vomiting 04/26/2009 documented as of this encounter (statuses as of 04/12/2024) Medications Medication Sig Dispensed Refills Start Date [...] times a day as needed. Active Methyl Westaiuwlg-Dzyz-Yffq hol 2-4-1 % External Patch 2 times a day. 02/25/2023 Active OneTouch Delica Plus [id number] USE TWICE DAILY 200 Each 3 04/19/2023 [...] stage 4 chronic kidney disease, unspecified whether terminal operations supervisor insulin use (HCC) Inject 5 Units under [...] as of this encounter (statuses as of 04/12/2024) Active Problems Problem Noted Date Diagnosed Date Food insecurity 07/05/2023 Overview: Per [facility] Protocol Chronic diastolic heart failure [...] as of this encounter (statuses as of 04/12/2024) Resolved Problems Problem Noted Date Diagnosed Date [...] as of this encounter (statuses as of 04/12/2024) Immunizations Name Administration Dates Next Due COVID-19 mRNA, LNP-s, No Pre serve, 2-Dose Series ([employer]ainment) 11/29/2020,11/08/2020 Covid-19, Mrna, Lnp-s, Pf, B ivalent, 30 Mcg, IM, 12 yrs and above (Pfizer) 08/10/2022 H1N1 2009 Influenza, IM 11/04/2009 Hepatitis B, 20+ yrs 07/13/2013,06/08/2013 Pneumococcal Conjugate Vacci ne, 20-valent ([email or web address]) 02/15/2023 Pneumococcal Polysaccharide PPV23 (Pneumovax) 04/26/2009 Seasonal Influenza, MDCK, Tr ivalent, PF, (Flucelvax) 06/08/2013 Seasonal Influenza, PF, 6 M & above, IM , (FluLaval or Fluzone) 04/13/2023,05/29/2022,06/03/2021,05/03,05/10/2018 Seasonal Influenza, Quadriva lent, No Preserve, IM 04/06/2017 Seasonal Influenza, Trivalen t, (IIV3), PF, (Fluzone) 04/11/2024 Seasonal Influenza, Trivalen t, (IIV3), with Preserv, (Fluzone) 05/16/2014,10/20/2012,07/14/2011,07/24,06/06/2009 TDAP (age 10 and older)(Boostrix) 06/12/2022 TDAP, [...] 10:20 AM EST Office Visit Pulmonary Medicine, [facility] [address] [facility] [place] [address] Fransico Padilla MD [address] [place] [address] 09/14/2024 2:20 PM EST Office Visit Nephrology, [place] [address] [place] [address] Cali Brown MD [address] [facility] [place] [address] Scheduled Procedures Name Priority Associated Diagnoses Date/Ti [...] Additional history exists CKD PHOS USE SMARTSET 65228 07/16/202406/26, 03/11/2023, 08/03/2022 CKD HGB USE SMARTSET 24501 11/21/202411/21, 07/16/2023, 07/16/2023, Additional history exists Diabetic [...] filedocumented as of this encounter Care Teams Salesperson [employer] Relationship Specialty Start Date End Date Jonathan Rees III, MD 200 [place] [address] PCP - General 03/09/1996 documented as of this encounter
--- OUTSIDE RECORDS SUMMARY | 2024-07-03 03:07 | External Medical Summary | Summary of Care ---
Author Name Unknown Organization [facility] Address [address] [facility] [place] [address] Phone [phone] Care Team Providers Care Fruit Buyer Name Role Phone Cabrera SCALES MD, Jonathan Potter Primary Care Provider [phone] Reason for Visit * Reason Onset Date Comments Status Check 02/16/2024 Encounter Details Date Type Department Care Team (Late st Contact Info) Description 02/16/2024 Telephone Family Practice [facility] [place] 200 [facility] [place] [address] Jonathan Rees III, MD 200 [place] [address] Status Check Allergies Active Allergy Reactions Criticality Noted Date Comments Metolazone 07/16/2023 Severe Electrolyte imbalance needing Hospital admission Morphine Sulfate Nausea/vomiting 04/26/2009 documented as of this encounter (statuses as of 02/16/2024) Medications Medication Sig Dispensed Refills Start Date [...] bedtime. 90 Tablet 3 03/08/2023 Active Methyl Bxflocfbhf-Qbph-Pumc hol 2-4-1 % External Patch 2 times a day. 02/25/2023 Active OneTouch Delica Plus [id number] USE TWICE DAILY 200 Each 3 04/19/2023 [...] stage 4 chronic kidney disease, unspecified whether assistant terminal manager insulin use (HCC) Inject 5 Units under [...] FOR MODERATE PAIN 30 Tablet 01/14/2024 Active documented as of this encounter (statuses as of 02/16/2024) Active Problems Problem Noted Date Diagnosed Date [...] as of this encounter (statuses as of 02/16/2024) Resolved Problems Problem Noted Date Diagnosed Date [...] as of this encounter (statuses as of 02/16/2024) Immunizations Name Administration Dates Next Due COVID-19 mRNA, LNP-s, No Pre serve, 2-Dose Series ([employer]) 11/29/2020,11/08/2020 Covid-19, Mrna, Lnp-s, Pf, B ivalent, 30 Mcg, IM, 12 yrs and above (Pfizer) 08/10/2022 H1N1 2009 Influenza, IM 11/04/2009 Hepatitis B, 20+ yrs 07/13/2013,06/08/2013 Pneumococcal Conjugate Vacci ne, 20-valent ([id number]) 02/15/2023 Pneumococcal Polysaccharide PPV23 (Pneumovax) 04/26/2009 Season Influenza, Cell Cultu re, 18+ Yrs, With Preserv (Flucelvax) 06/08/2013 Seasonal Influenza, PF, 6 M & above, IM , (FluLaval or Fluzone) 04/13/2023,05/29/2022,06/03/2021,05/03,05/10/2018 Seasonal Influenza, Quadriva lent, No Preserve, IM 04/06/2017 Seasonal Influenza, Split, I IV3, With Preserve, Inj 05/16/2014,10/20/2012,07/14/2011,07/24,06/06/2009 TDAP (age 10 and older)(Boostrix) 06/12/2022 [...] encounter Miscellaneous Notes * Telephone Encounter - Jovanna Salgado, transistor tester - 02/16/2024 10:07 AM EDT [facility] calling for status of [place] for ozurdex. Transferred to office of Dr. Tsai Thank you, Jovanna Salgado Medical Staff Services Manager I [facility] 02/16/2024,10:08 AM documented in this encounter Plan of Treatment Upcoming Encounters Date Type Department Care Team (Late st Contact Info) Description 09/14/2024 2:20 PM EST Office Visit Nephrology, [place] 200 [facility] [place] [address] Cali Brown MD 200 [facility] [place] [address] Scheduled Procedures Name Priority Associated Diagnoses Date/Ti [...] Additional history exists CKD PHOS USE SMARTSET 62500 07/16/202406/26, 03/11/2023, 08/03/2022 CKD HGB USE SMARTSET 83326 11/21/202411/21, 07/16/2023, 07/16/2023, Additional history exists Diabetic [...] filedocumented as of this encounter Care Teams Fruit Buyer Relationship Specialty Start Date End Date Jonathan Rees III, MD [address] [place] [address] PCP - General 03/09/1996 documented as of this encounter
--- OUTSIDE RECORDS SUMMARY | 2024-07-03 03:07 | External Medical Summary | Summary of Care ---
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 [facility] For what condition is the patient being referred? Liver conditions Comments Pt Known to Dr Mace. Need re eval for Paracentesis. Last Para > 1 yr ago. Now with increased discomfort and DAMICO, Reason for Visit * Reason Onset Date Comments Medication Administration 04/11/2024 Flu an d/or Pneumo Inj Follow Up Return pulm. Chasity Olivaressathyacharmaine patient. Asthma. SOB. After she relaxes it eases . 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 Active Methyl Wlnrtfnnik-Bueo-Evgt hol 2-4-1 % External Patch 2 times a day. 02/25/2023 Active OneTouch Delica Plus [id number] USE TWICE DAILY 200 Each 3 04/19/2023 [...] stage 4 chronic kidney disease, unspecified whether mcc insulin use (HCC) Inject 5 Units under [...] as of this encounter (statuses as of 04/11/2024) Active Problems Problem Noted Date Diagnosed Date [...] as of this encounter (statuses as of 04/11/2024) Resolved Problems Problem Noted Date Diagnosed Date [...] as of this encounter (statuses as of 04/11/2024) Immunizations Name Administration Dates Next Due COVID-19 mRNA, LNP-s, No Pre serve, 2-Dose Series (Pfizer) 11/29/2020,11/08/2020 Covid-19, Mrna, Lnp-s, Pf, B ivalent, 30 Mcg, IM, 12 yrs and above (Pfizer) 08/10/2022 H1N1 2009 Influenza, IM 11/04/2009 Hepatitis B, 20+ yrs 07/13/2013,06/08/2013 Pneumococcal Conjugate Vacci ne, 20-valent ([id number]) 02/15/2023 Pneumococcal Polysaccharide PPV23 (Pneumovax) 04/26/2009 Seasonal [...] on file documented as of this encounter Last Filed Vital Signs Vital Sign Reading Time Taken Comments Blood Pressure 118/80 04/11/2024 11:40 AM EDT Pulse 90 04/11/2024 11:40 AM EDT Temperature 37.2 C (98.9 F) 04/11/2024 11:40 AM E DT Respiratory Rate 16 04/11/2024 11:40 AM EDT Oxygen Saturation 97% 04/11/2024 11:41 AM EDT ra-amb Inhaled Oxygen Concentration - - Weight 93.9 kg (207 lb) 04/11/2024 11:40 AM EDT Height 161.3 cm (5' 3.5") 04/11/2024 11:40 AM ED T Body Mass Index 36.09 04/11/2024 11:40 AM EDT documented in this encounter Progress Notes * Fransico Padilla MD - 04/11/2024 11:52 AM EDT 04/11/2024 Pulmonary Medicine, [address] [place] [address] [id number] Saida Giron 1960 female 63 year old Attending Physician Documentation: 63-year-old female Lifetime nonsmoker, With Hx of childhood 2nd hand smoke exposure. JOYCE cirrhosis Portal hypertension Remote History of periodic paracentesis for portal hypertension, Dr Mace (Hepatology [facility]) History of PE 3 years ago, Eliquis Therapy status Obesity, BMI 36 CHF Type 2 diabetes mellitus Diabetic retinopathy Hyperlipidemia Osteoarthrosis Thrombocytopenia Current bronchodilator regimen: None Physical Examination: Alert, awake, clinical pallor, no distress Class 3 throat No JVD Trace basilar dulness with increased abdominal distrension S1, S2, no murmur Abdominal distention No LE Edema Recurrent Ascites with Hx of JOYCE Cirhosis Hepatolgy referral placed for Paracentesis, Dr Mace GI. Last paracentesis was more than 1 year ago. NPOX on RA CXR PA and Lateral view today: No acute infiltrates noted. No pleural effusions noted. No BD Rx at present F/u 3 months Assessment Need for prophylactic vaccination and inoculation against influenza (Primary) - INFLUENZA VAC, TRIVALENT, (IIV3), PF, 0.5 ML (FLUZONE) Follow Up: Return in about 3 months (around 07/11/2024) for Clinic Visit. | For: Clinic Visit | Check-out note: 63-year-old female Lifetime nonsmoker, With Hx of childhood 2nd hand smoke exposure. JOYCE cirrhosis Portal hypertension Remote History of periodic paracentesis for portal hypertension, Dr Mace (Hepatology [facility]) History of PE 3 years ago, Eliquis Therapy status Obesity, BMI 36 CHF Type 2 diabetes mellitus Diabetic retinopathy Hyperlipidemia Osteoarthrosis Thrombocytopenia Current bronchodilator regimen: None Recurrent Ascites with Hx of JOYCE Cirhosis Hepatolgy referral place Follow Up: Return in about 3 months (around 07/11/2024) for Clinic Visit. | For: Clinic Visit | Check-out note: d for Paracentesis, Dr Mace GI. Last paracentesis was more than 1 year ago. NPOX on RA CXR PA and Lateral view No BD Rx at present F/u 3 months DATA CHEST 2 VIEWS - 03/31/2023 1:50 pm HISTORY edema , wt gain and DAMICO - r/o CHF . TECHNIQUE Chest two views. COMPARISON 08/03/2022. FINDINGS The lungs are grossly clear. No lobar consolidation. No pleural effusion. The cardiomediastinal silhouette is within normal limits for size. Atherosclerotic calcification is present in the aortic knob similar to prior examination. Severe midthoracic compression deformity not significantly changed. IMPRESSION IMPRESSION No acute pulmonary process. Details as above. Relevant Lab work: 2022: NE RAST normal. IgE 62.4 Pulmonary Function Test Results: Performed on 01/2022: BMI 44. Flow loops mixed. Spirometry is restrictive. There is no signifcant bronchodilator response. Recommend full PFT with DLCO, lung volumes and spirometry in 6-12 months.This interpretation has been electronically signed: Nestor Lockhart 02/20/2022 07:48:49 AM Chest X-ray: Performed on 07/2022: FINDINGS: Lungs: Shallow chest expansion. The lungs are clear. Pleural spaces: Normal. Heart/Mediastinum: Normal heart and cardio-mediastinal silhouette. Vasculature: Normal pulmonary vessels and width of the vascular pedicle. Vascular calcification at the level of the aortic knob. Bones/joints: Nondisplaced T8 vertebra plana. The bones are otherwise unremarkable. IMPRESSION IMPRESSION: 1. No acute cardiopulmonary abnormality or suspicious finding. 2. Mild aortosclerosis. 3. Nondisplaced T8 vertebra plana deformity. Chest CT scan: Performed on 12/2021, per [facility] record (no image): Airway is clear. No endobronchial lesion. Lungs are clear of acute alveolar opacities, air bronchograms, pulmonary nodules. No evidence of pleural effusion. No evidence of pneumothorax. No evidence of adenopathy. Marked abdominal ascites. Liver has the appearance of cirrhosis with splenomegaly. No evidence of pericardial effusion. Performed 02/2022, [facility], report only: Old moderate superior endplate compression deformity at T3. Subacute mild superior endplate compression fracture at T4. Healing right anterior rib fractures.Acute left anterior 3rd through 5th rib fractures. Mild elevation of right hemidiaphragm. Central ai rways are patent. No pneumothorax or pleural effusion. Subsegmental atelectasis. No new focal lung consolidations to suggest pneumonia. No evidence of pulmonary edema. 1 cm left thyroid nodule. No change in anterior diaphragmatic lymphadenopathy. Subcentimeter distal paraesophageal lymph nodes are again noted. No hilar lymphadenopathy. Normal esophagus. Heart is normal size. Extensive bilateral pulmonary emboli with associated subtle embolus at the main pulmonary arteries. Echocardiogram: Performed on 01/14: EF 60-65%, Mild concentric LVH RV normal size and function Left atrium mildly dilated. Trace tricuspid regurgitation. Doppler findings do not suggest pulmonary hypertension. Fransico Padilla MD Subjective CC: Chief Complaint Patient presents with Medication Administration Flu and/or Pneumo Inj Follow Up Return pulm. Sherly Greenfield patient. Asthma. SOB. After she relaxes it eases . HPI: Nursing Notes: Deidra Acosta LPN 04/11/24 1144 Signed Chief Complaint Patient presents with Medication Administration Flu and/or Pneumo Inj Follow Up Return pulm. Sherly Greenfield patient. Asthma. SOB. After she relaxes it eases . Interm History/Respiratory Symptoms Cough: no Hemoptysis: no Sinus Symptoms: yes-drainage Hospitalizations: no ED Trips: no Triggers: smoke,metal smell -once in awhile (for seconds at a time) comes and goes. Nocturnal: sleeps with head elevated CPAP/BiPAP/O2: no DME Supplier: no Flu Vaccine: 2023 Pneumovax: 2008 Prevnar: 2022 COVID 19: x3. MMRC Dyspnea Scale = 4 (I am too breathless to leave the house or I am breathless when dressing) Objective Filed Vitals: 04/11/24 1140 04/11/24 1141 BP: 118/80 Pulse: 90 Resp: 16 Temp: 37.2 C (98.9 F) TempSrc: Tympanic SpO2: 97% 97% Weight: 93.9 kg (207 lb) Height: 1.613 m (5' 3.5") Exam: Const: No signs of acute distress present. Head/Face: Normal on inspection. Eyes: Conjunctivae clear. Pupils equal round and reactive to light. ENMT: Oropharynx: No erythema, exudate or masses. Posterior pharynx is normal. Neck: Supple and symmetric. Resp: Respiratory examination as outlined above CV: Rate is regular. Rhythm is regular. No heart murmur appreciated. Extremities: No edema of the lower limbs bilaterally. Skin: Skin is warm and dry. Neuro: Coordination normal. No involuntary movement. Psych: Patient's attitude is cooperative. Mood is normal. Affect is normal. Tests reviewed with the patient: No imaging results in the last 6 months Available Radiologic data was reviewed by me in PACS. The images were shown to the patient and findings were discussed with the patient. HOME MEDICATIONS: Diclofenac Sodium 1 % External Gel (Voltaren) rOPINIRole HCl 0.25 MG Oral Tablet (Requip) Rosuvastatin Calcium 5 MG Oral Tablet (Crestor) Pantoprazole Sodium 20 MG Oral Tablet Delayed Release (Protonix) traMADol HCl 50 MG Oral Tablet (Ultram) Empagliflozin 10 MG Oral Tablet (Jardiance) Eylea 2 MG/0.05ML Intravitreal Solution Prefilled Syringe Multivitamin Adult Oral Tablet Spironolactone 50 MG Oral Tablet (Aldactone) Torsemide 20 MG Oral Tablet (Demadex) Insulin Glargine Solostar 100 UNIT/ML Subcutaneous Solution Pen-injector (Lantus SoloStar) NovoLOG FlexPen 100 UNIT/ML Subcutaneous Solution Pen-injector (insulin aspart) Unifine Pentips 31G X 8 MM (Insulin Pen Needle) OneTouch Verio In Vitro Strip (Glucose Blood) OneTouch Delica Plus [id number] Methyl Pyuwpmvzst-Izee-Jdgtlwl 2-4-1 % External Patch Docusate Sodium 100 MG Oral Capsule (Colace) Eliquis 5 MG Oral Tablet ProAir HFA 108 (90 Base) MCG/ACT Inhalation Aerosol Solution Albumin Human 25 % Intravenous Solution OneTouch Verio w/Device Kit analgesic balm (BLAINE JENNINGS) 15% OINT Vitamin D 25 MCG (1000 UT) Oral Tablet ROS: No reported history of Hemoptysis, Hematemesis, Melena No reported history of Dysuria, Hematuria, Flank Pain No reported history of chronic headache, seizures No reported history of Fall or trauma . No reported history of recent change in weight or appetite. Past Medical History: Diagnosis Date Asthma Diabetes mellitus (HCC) Diabetic eye exam (HCC) 07/09/2012 no retinopathy Morbid obesity, BMI not known (HCC) Rheumatic fever 1976 Past Surgical History: Procedure Laterality Date COLONOSCOPY, DIAGNOSTIC (RECTUM) 06/05/2022 normal scope/ no specimens collected / 10 year recall / COLONOSCOPY FLEXIBLE PROXIMAL DIAGNOSTIC performed by Deidra Mace MD at ENDOSCOPY [facility] EGD, FLEXIBLE, DIAGNOSTIC N/A 02/26/2023 portal hypertensive gastropathy/non-bleeding gastric ulcers/biopsies show mild irritation of stomach/EGD/[place] LAPAROSCOPY; CHOLECYSTECTOMY Dr Wilkes MAMMOGRAM SCREENING BILATERAL 06/03/2010 cat. 2, repeat in 12gahs Social History Socioeconomic History Marital status: Single Years of education: 12 Tobacco Use Smoking status: Never Smokeless tobacco: Never Vaping Use Vaping status: Never Used Substance and Sexual Activity Alcohol use: No Comment: in the past, Drug use: No Social History Narrative 1 dog No mold Social Determinants of Health Financial Resource Strain: Low Risk (04/13/2023) Financial Resource Strain Do you have any trouble paying for your medications, or do you think you might in the future? (Adult - for ages 18 years and over): No Food Insecurity: No Food Insecurity (04/13/2023) Food Insecurity Do you need food for this week? (Adult - for ages 18 years and over): No Recent Concern: Food Insecurity - Food Insecurity Present (04/13/2023) Hunger Vital Sign Worried About Running Out of Food in the Last Year: Sometimes true Ran Out of Food in the Last Year: Sometimes true Transportation Needs: No Transportation Needs (04/13/2023) Transportation Needs Do you have trouble getting a ride to medical visits or work? (Adult - for ages 18 years and over):Never True Social Connections: Socially Integrated (04/13/2023) Social Connections How often do you feel lonely or isolated from those around you? (Adult - for ages 18 years and over): Never Housing Stability: Low Risk (04/13/2023) Housing Stability Do you currently live in a mcfp or have no steady place to sleep at night? (Adult - for ages 18 years and over): No Do you think you are at risk of becoming homeless? (Adult - for ages 18 years and over): No Family History Problem Relation Name Age of Onset Diabetes Mother Hypertension Mother Heart disease Father COPD Father No Known Problems Brother Benson Breast Cancer No significant family history Review of patient's allergies indicates: Allergen Reactions Metolazone Severe Electrolyte imbalance needing Hospital admission Morphine Sulfate Nausea/vomiting * Deidra Acosta LPN - 04/11/2024 11:30 AM EDT PRE - ADMINISTRATION DOCUMENTATION Are you experiencing any cold symptoms or fever? No Have you had Guillain-Festus Syndrome (an illness that causes paralysis) within the last 6 weeks? No Have you had the flu shot in the past? YES Have you ever had a reaction to the flu shot? No Deidra Acosta LPN, 04/11/2024 11:30 AM Immunization Administration Documentation Time Out Procedure Performed: Yes Patient Identified (Ask Name/Date of ): Yes Does the patient have a fever greater than 101 degrees today? No Patient allergic to latex? No VFC Stock: No Immunization(s) verified: Yes, Immunization Name: Flu, VIS Sheet(s) given: Yes Verified Side and Site: Yes Verified Shot(s) with Parent(s)/Patient: Yes documented in this encounter Nursing Notes * Deidra Acosta LPN - 04/11/2024 11:41 AM EDT Chief Complaint Patient presents with Medication Administration Flu and/or Pneumo Inj Follow Up Return pulm. Sherly Greenfield patient. Asthma. SOB. After she relaxes it eases . Interm History/Respiratory Symptoms Cough: no Hemoptysis: no Sinus Symptoms: yes-drainage Hospitalizations: no ED Trips: no Triggers: smoke,metal smell -once in awhile (for seconds at a time) comes and goes. Nocturnal: sleeps with head elevated CPAP/BiPAP/O2: no DME Supplier: no Flu Vaccine: 2023 Pneumovax: 2008 Prevnar: 2022 COVID 19: x3. MMRC Dyspnea Scale = 4 (I am too breathless to leave the house or I am breathless when dressing) documented in this encounter Plan of Treatment Upcoming Encounters Date Type Department Care Team (Late st Contact Info) Description 07/11/2024 10:20 AM EST Office Visit Pulmonary Medicine, [facility] [address] [facility] [place] [address] Fransico Padilla MD [address] [place] [address] 09/14/2024 2:20 PM EST Office Visit Nephrology, [facility] [address] [facility] [place] [address] Cali Brown MD [address] [facility] [place] [address] Pending Results Name Type Priority Associated Diagnoses Date /Time XR CHEST 2 VIEWS Medical Imaging Routine Portal hypertension (HCC) 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) 04/11/2024 12:39 PM EDT Scheduled Orders Name Type Priority Associated Diagnoses Orde r Schedule NOCTURNAL HOME OXIMETRY (OP) Procedures Routine Portal hypertension (HCC) 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) Ordered: 04/11/2024 Scheduled Procedures Name Priority Associated Diagnoses Date/Ti me COLONOSCOPY FLEXIBLE PROXIMAL DIAGNOSTIC Recall Screen for colon cancer Scheduled Referrals Name Type Priority Associated Diagnoses Orde r Schedule HEPATOLOGY REFERRAL OP Referral Within 3 days (urgent) Portal hypertension (HCC) 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) Ordered: 04/11/2024 Health Maintenance Due Date Last Done Comments [...] Additional history exists CKD PHOS USE SMARTSET 02775 07/16/202406/26, 03/11/2023, 08/03/2022 CKD HGB USE SMARTSET 88813 11/21/202411/21, 07/16/2023, 07/16/2023, Additional history exists Diabetic [...] Not on filedocumented as of this encounter Visit Diagnoses Diagnosis Need for prophylactic vaccination and inoculation against influenza- Primary Portal hypertension (HCC) Portal hypertension 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
--- OUTSIDE RECORDS SUMMARY | 2024-07-03 03:07 | External Medical Summary | Summary of Care ---
Author Name Unknown Organization [facility] Address [address] [facility] [place] [address] Phone [phone] Care Team Providers Care Forest Ecology Professor Name Role Phone Cabrera SCALES MD, Jonathan Potter Primary Care Provider [phone] Reason for Visit * Reason Comments Medication Refill Encounter Details Date Type Department Care Team (Late st Contact Info) Description 03/22/2024 Refill Family Practice [facility] [address] [facility] [place] [address] Giovanni Madden, DO [address] [facility] [place] [address] RLS (restless legs syndrome) Allergies Active Allergy Reactions Criticality Noted Date Comments Metolazone 07/16/2023 Severe Electrolyte imbalance needing Hospital admission Morphine Sulfate Nausea/vomiting 04/26/2009 documented as of this encounter (statuses as of 03/23/2024) Medications Medication Sig Dispensed Refills Start Date End Date Status analgesic balm (BLAINE JENNINGS) 15% OINTIndications:Kne e pain twice daily as needed (STOP PAIN) 1 Tube 11 5 Active OneTouch Verio w/Device Kit Use up to 4 times a day E11.9 1 Kit 2 Active Albumin Human 25 % Intravenous Solution Infuse 25g albumin pre paracentesis. If fluid removed is >5L, please infuse 25g post paracentesis. Run at 100mL/hr. 200 mL 2 Active Vitamin D 25 MCG (1000 UT) Oral Tablet Take by mouth first thing in the morning . Active Eliquis 5 MG Oral Tablet Take by one tablet by mouth every 12 hours . 180 Tablet 3 3 Active ProAir HFA 108 (90 Base) MCG/ACT Inhalation Aerosol SolutionIndications :Moderate persistent asthma without complication Inhale 2 Puffs by mouth in the morning and 2 Puffs at noon and 2 Puffs in the evening and 2 Puffs before bedtime. 18 g 3 3 Active Additional Information Patient taking differently:2 Puff InhalationQID PRN, Reported on 05/17/2023 Rosuvastatin Calcium 5 MG Oral Tablet (Crestor)Indication s:Hyperlipidemia, unspecified hyperlipidemia type Take 1 Tablet by mouth in the morning. 90 Tablet 3 3 Active Diclofenac Sodium 1 % External Gel (Voltaren) Apply topically to affected area 2 times a day. Apply to back knees 400 g 6 3 Active Docusate Sodium 100 MG Oral Capsule (Colace)Indications :Constipation, unspecified constipation type Take 1 Capsule by mouth 2 times a day as needed. Active Methyl Dmopjogkix-Djop-Yhe thol 2-4-1 % External Patch 2 times a day. 3 Active OneTouch Delica Plus [id number] USE TWICE DAILY 200 Each 3 3 Active OneTouch Verio In Vitro Strip (Glucose Blood) USE DIRECTED TWO TIMES A DAY 200 Strip 3 3 Active Unifine Pentips 31G X 8 MM (Insulin Pen Needle)Indications: DM type 2, not at goal (HCC) use 4 times daily as directed (Novolog & Lantus) 400 Each 3 3 Active Insulin Glargine Solostar 100 UNIT/ML Subcutaneous Solution Pen-injector (Lantus SoloStar)Indication s:DM type 2, not at goal (HCC) INJECT 25 units UNDER THE SKIN daily in the morning 30 mL 3 3 Active Additional Information Patient taking differently: INJECT 21 units UNDER THE SKIN daily in the morning, Reported on 05/19/2023 NovoLOG FlexPen 100 UNIT/ML Subcutaneous Solution Pen-injector (insulin aspart)Indications: Type 2 diabetes mellitus with stage 4 chronic kidney disease, 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 Inject with meals. 15 mL 3 3 Active Torsemide 20 MG Oral Tablet (Demadex) Take 1 Tablet by mouth in the morning. 90 Tablet 3 3 Active Spironolactone 50 MG Oral Tablet (Aldactone)Indicati ons:Chronic kidney disease, stage 3b (HCC) Take 2 Tablets by mouth in the morning. 180 Tablet 3 3 Active Eylea 2 MG/0.05ML Intravitreal Solution Prefilled Syringe 3 Active Multivitamin Adult Oral Tablet Take 1 Tablet by mouth in the morning. Active Empagliflozin 10 MG Oral Tablet (Jardiance) Take 1 Tablet by mouth in the morning. 90 Tablet 3 4 Active Pantoprazole Sodium 20 MG Oral Tablet Delayed Release (Protonix) Take 1 Tablet by mouth 2 times a day with morning and evening meals. 180 Tablet 1 4 Active traMADol HCl 50 MG Oral Tablet (Ultram)Indications :Chronic thoracic back pain, unspecified back pain laterality TAKE 1 TABLET BY MOUTH EVERY 6 HOURS NEEDED FOR MODERATE PAIN 30 Tablet 4 Active rOPINIRole HCl 0.25 MG Oral Tablet (Requip)Indications :RLS (restless legs syndrome) Take 1 Tablet by mouth at bedtime. 90 Tablet 3 4 Active rOPINIRole HCl 0.25 MG Oral Tablet (Requip)Indications :RLS (restless legs syndrome) Take 1 Tablet by mouth at bedtime. 90 Tablet 3 3 03/22/20 24 Discontinu ed(Refill) documented as of this encounter (statuses as of 03/23/2024) Active Problems Problem Noted Date Diagnosed Date Food insecurity 07/05/2023 Overview: Per [facility] Protocol Chronic diastolic heart failure [...] as of this encounter (statuses as of 03/23/2024) Resolved Problems Problem Noted Date Diagnosed Date [...] as of this encounter (statuses as of 03/23/2024) Immunizations Name Administration Dates Next Due COVID-19 mRNA, LNP-s, No Pre serve, 2-Dose Series ([employer]) 11/29/2020,11/08/2020 Covid-19, Mrna, Lnp-s, Pf, B ivalent, 30 Mcg, IM, 12 yrs and above (Pfizer) 08/10/2022 H1N1 2009 Influenza, IM 11/04/2009 Hepatitis B, 20+ yrs 07/13/2013,06/08/2013 Pneumococcal Conjugate Vacci ne, 20-valent ([id number]) 02/15/2023 Pneumococcal Polysaccharide PPV23 (Pneumovax) 04/26/2009 Season [...] encounter Miscellaneous Notes * Telephone Encounter - Giovanni Madden DO - 03/23/2024 8:03 AM EDT Signed Prescriptions: Disp Refills rOPINIRole HCl 0.25 MG Oral Tablet (Requip)90 Tab*3 Sig: Take 1Tablet by mouth at bedtime.Authorizing Provider: GIOVANNI MADDEN documented in this encounter Plan of Treatment Upcoming Encounters Date Type Department Care Team (Late st Contact Info) Description 09/14/2024 2:20 PM EST Office Visit [facility] [address] [place] [address] Cali Brown MD [address] [place] [address] Scheduled Procedures Name Priority Associated Diagnoses Date/Ti [...] Additional history exists CKD PHOS USE SMARTSET 29884 07/16/202406/26, 03/11/2023, 08/03/2022 CKD HGB USE SMARTSET 66134 11/21/202411/21, 07/16/2023, 07/16/2023, Additional history exists Diabetic [...] as of this encounter Visit Diagnoses Diagnosis RLS (restless legs syndrome) Restless legs syndrome (RLS) documented in this encounter Care Teams Forest Ecology Professor Relationship Specialty Start Date End Date Jonathan Rees III, MD 200 [place] [address] PCP - General 03/09/1996 documented as of this encounter
--- OUTSIDE RECORDS SUMMARY | 2024-07-03 03:07 | External Medical Summary | Summary of Care ---
Author Name Unknown Organization [facility] Address [address] [facility] [place] [address] Phone [phone] Care Team Providers Care Director Of Enterprise Architecture Name Role Phone Cabrera SCALES MD, Jonathan Potter Primary Care Provider [phone] Reason for Visit * Reason Onset Date Comments Appointment 04/11/2024 Encounter Details Date Type Department Care Team (Late st Contact Info) Description 04/11/2024 Telephone Pulmonary Medicine Serjio Quintanilla [address] [place] [phone] Fransico Padilla MD [address] [place] [address] Appointment Allergies Active Allergy Reactions Criticality Noted Date Comments Metolazone 07/16/2023 Severe Electrolyte imbalance needing Hospital admission Morphine Sulfate Nausea/vomiting 04/26/2009 documented as of this encounter (statuses as of 04/26/2024) Medications Medication Sig Dispensed Refills Start Date [...] times a day as needed. Active Methyl Hzwtybqlab-Psah-Qcfr hol 2-4-1 % External Patch 2 times a day. 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) Inject 5 Units under [...] as of this encounter (statuses as of 04/26/2024) Active Problems Problem Noted Date Diagnosed Date Food insecurity 07/05/2023 Overview: Per [facility] Protocol Chronic diastolic heart failure [...] as of this encounter (statuses as of 04/26/2024) Resolved Problems Problem Noted Date Diagnosed Date [...] as of this encounter (statuses as of 04/26/2024) Immunizations Name Administration Dates Next Due COVID-19 mRNA, LNP-s, No Pre serve, 2-Dose Series ([employer]) 11/29/2020,11/08/2020 Covid-19, Mrna, Lnp-s, Pf, B ivalent, 30 Mcg, IM, 12 yrs and above (Pfizer) 08/10/2022 H1N1 2009 Influenza, IM 11/04/2009 Hepatitis B, 20+ yrs 07/13/2013,06/08/2013 Pneumococcal Conjugate Vacci ne, 20-valent ([id number]) 02/15/2023 Pneumococcal Polysaccharide PPV23 (Pneumovax) 04/26/2009 Seasonal [...] on Wednesday after my endo day at [facility] or at lunch hour (12:15) that would be great thanks. Called patient to get setup with an appt.. I could not hear patient , there was not connection and she hung up. Pt needs an appt Wednesday at [facility] at [address] Mace * Telephone [...] recall. Schedules are full. Pt goes to . * Telephone Encounter - Christina Gaines OSA - 04/11/2024 12:17 PM EDT Pt needs a hep. referral and a nocturnal test. Please schedule with pt Thank you documented in this encounter Plan of Treatment Upcoming Encounters Date Type Department Care Team (Late st Contact Info) Description 07/11/2024 10:20 AM EST Office Visit Pulmonary Medicine, [facility] [address] [facility] [place] [address] Fransico Padilla MD [address] [facility] [place] [address] 09/14/2024 2:20 PM EST Office Visit Nephrology, [facility] 200 [facility] [place] [address] Cali Brown MD [address] [facility] [place] [address] Scheduled Procedures Name Priority Associated Diagnoses Date/Ti [...] Additional history exists CKD PHOS USE SMARTSET 52816 07/16/202406/26, 03/11/2023, 08/03/2022 CKD HGB USE SMARTSET 78583 11/21/202411/21, 07/16/2023, 07/16/2023, Additional history exists Diabetic [...] filedocumented as of this encounter Care Teams Director Of Enterprise Architecture Relationship Specialty Start Date End Date Jonathan Rees III, MD 200 [facility] [place] [address] PCP - General 03/09/1996 documented as of this encounter
--- OUTSIDE RECORDS SUMMARY | 2024-07-03 03:07 | External Medical Summary | Summary of Care ---
Author Name Unknown Organization [facility] Address [address] [place] [address] Phone [phone] Care Team Providers Care Cook Sauce Name Role Phone Cabrera SCALES MD, Jonathan Potter Primary Care Provider [phone] Encounter Details Date Type Department Care Team (Late st Contact Info) Description 03/13/2024 Orders Only Outcomes Research Department [address] [place] [address] Saida Alvarado CHRA [employer] Other*[id number] Allergies Active Allergy Reactions Criticality Noted Date Comments Metolazone 07/16/2023 Severe Electrolyte imbalance needing Hospital admission Morphine Sulfate Nausea/vomiting 04/26/2009 documented as of this encounter (statuses as of 03/13/2024) Medications Medication Sig Dispensed Refills Start Date [...] bedtime. 90 Tablet 3 03/08/2023 Active Methyl Oznzhdrlwm-Hnlo-Uyhx hol 2-4-1 % External Patch 2 times a day. 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) Inject 5 Units under [...] as of this encounter (statuses as of 03/13/2024) Active Problems Problem Noted Date Diagnosed Date [...] as of this encounter (statuses as of 03/13/2024) Resolved Problems Problem Noted Date Diagnosed Date [...] as of this encounter (statuses as of 03/13/2024) Immunizations Name Administration Dates Next Due COVID-19 mRNA, LNP-s, No Pre serve, 2-Dose Series (Pfizer) 11/29/2020,11/08/2020 Covid-19, Mrna, Lnp-s, Pf, B ivalent, 30 Mcg, IM, 12 yrs and above (Pfizer) 08/10/2022 H1N1 2009 Influenza, IM 11/04/2009 Hepatitis B, 20+ yrs 07/13/2013,06/08/2013 Pneumococcal Conjugate Vacci ne, 20-valent ([id number]) 02/15/2023 Pneumococcal Polysaccharide PPV23 (Pneumovax) 04/26/2009 Season [...] on file documented as of this encounter Plan of Treatment Upcoming Encounters Date Type Department Care Team (Late st Contact Info) Description 09/14/2024 2:20 PM EST Office Visit Nephrology, [place] [address] [place] [address] Cali Brown MD 200 [facility] [place] [address] Scheduled Orders Name Type Priority Associated Diagnoses Orde r Schedule MYCODE SUBSEQUENT ADULT Lab Routine [employer] Research Other*[id number] Every 6 Months for 2 Occurrences starting 03/13/2024 until 04/02/2025 Scheduled Procedures Name Priority Associated Diagnoses Date/Ti [...] Additional history exists CKD PHOS USE SMARTSET 58500 07/16/202406/26, 03/11/2023, 08/03/2022 CKD HGB USE SMARTSET 83501 11/21/202411/21, 07/16/2023, 07/16/2023, Additional history exists Diabetic [...] as of this encounter Visit Diagnoses Diagnosis [employer] Other*[id number] documented in this encounter Care Teams Cook Sauce Relationship Specialty Start Date End Date Jonathan Rees III, MD [address] [place] [address] PCP - General 03/09/1996 documented as of this encounter
--- OUTSIDE RECORDS SUMMARY | 2024-07-03 03:07 | External Medical Summary | Summary of Care ---
Author Name Unknown Organization [facility] Address [address] [facility] [place] [address] Phone [phone] Care Team Providers Care Rotary Furnace Tender Name Role Phone Cabrera SCALES MD, Jonathan Potter Primary Care Provider [phone] Reason for Visit * Reason Onset Date Comments Oxygen Assessment 04/14/2024 NPO order on H old d/t insurance coverage Encounter Details Date Type Department Care Team (Late st Contact Info) Description 04/14/2024 Telephone Pulmonary Medicine, [facility] [address] [facility] [place] [id number] Fransico Padilla MD [address] [facility] [place] [phone] Oxygen Assessment (NPO order on Hold d/t i... Allergies Active Allergy Reactions Criticality Noted Date Comments Metolazone 07/16/2023 Severe Electrolyte imbalance needing Hospital admission Morphine Sulfate Nausea/vomiting 04/26/2009 documented as of this encounter (statuses as of 04/14/2024) Medications Medication Sig Dispensed Refills Start Date [...] times a day as needed. Active Methyl Vgqajocwrt-Jkdx-Lnyz hol 2-4-1 % External Patch 2 times a day. 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) Inject 5 Units under [...] as of this encounter (statuses as of 04/14/2024) Active Problems Problem Noted Date Diagnosed Date Food insecurity 07/05/2023 Overview: Per [facility] Protocol Chronic diastolic heart failure 04/13/2023 [...] as of this encounter (statuses as of 04/14/2024) Resolved Problems Problem Noted Date Diagnosed Date [...] as of this encounter (statuses as of 04/14/2024) Immunizations Name Administration Dates Next Due COVID-19 mRNA, LNP-s, No Pre serve, 2-Dose Series ([employer]) 11/29/2020,11/08/2020 Covid-19, Mrna, Lnp-s, Pf, B ivalent, 30 Mcg, IM, 12 yrs and above ([employer]) 08/10/2022 H1N1 2009 Influenza, IM 11/04/2009 Hepatitis B, 20+ yrs 07/13/2013,06/08/2013 Pneumococcal Conjugate Vacci ne, 20-valent ([id number]) 02/15/2023 Pneumococcal Polysaccharide PPV23 (Pneumovax) 04/26/2009 Seasonal [...] encounter Miscellaneous Notes * Telephone Encounter - Lara Dennis LPN - 04/14/2024 9:10 AM EDT ordered an NPO onthis pt. However the pt does not have insurance currently. Pt states she is hoping to have insurance by Apr. Pt was instructed to contact the office when she has insuranceagain and the order will then be submitted to . Pt was given the office phn number and advised she could also send an email through the My Chart documented in this encounter Plan of Treatment Upcoming Encounters Date Type Department Care Team (Late st Contact Info) Description 07/11/2024 10:20 AM EST Office Visit Pulmonary Medicine, [facility] 132 [facility] [place] [address] Fransico Padilla MD [address] [facility] [phone] 09/14/2024 2:20 PM EST Office Visit Nephrology, [facility] [address] [place] [phone] Cali Brown MD [address] [place] [address] Scheduled Procedures Name Priority Associated Diagnoses Date/Ti [...] Additional history exists CKD PHOS USE SMARTSET 16651 07/16/202406/26, 03/11/2023, 08/03/2022 CKD HGB USE SMARTSET 66398 11/21/202411/21, 07/16/2023, 07/16/2023, Additional history exists Diabetic Eye Exam 01/17/2025 01/18/2024, , 12/13/2023, Additional history exists Pap Smear 05/19/2026 05/19/2023, 05/31/2009 Lipid Panel 08/03/2027 08/03/2022, 0803/2022, 11/15/2018, Additional history exists Cervical Cancer Screening [...] filedocumented as of this encounter Care Teams Rotary Furnace Tender Relationship Specialty Start Date End Date Jonathan Rees III, MD [address] [place] [address] PCP - General 03/09/1996 documented as of this encounter
--- OUTSIDE RECORDS SUMMARY | 2024-07-03 03:07 | External Medical Summary | Summary of Care ---
Author Name Unknown Organization [facility] Address [address] [facility] [place] [address] Phone [phone] Care Team Providers Care Car Wiper Name Role Phone Cabrera SCALES MD, Jonathan Potter Primary Care Provider [phone] Reason for Visit * Reason Onset Date Comments Appointment 04/11/2024 Encounter Details Date Type Department Care Team (Late st Contact Info) Description 04/11/2024 Telephone Pulmonary Medicine Serjio Quintanilla [address] [place] [address] [phone] Fransico Padilla MD [address] [place] [address] Appointment Allergies Active Allergy Reactions Criticality Noted Date Comments Metolazone 07/16/2023 Severe Electrolyte imbalance needing Hospital admission Morphine Sulfate Nausea/vomiting 04/26/2009 documented as of this encounter (statuses as of 04/13/2024) Medications Medication Sig Dispensed Refills Start Date [...] times a day as needed. Active Methyl Smlhjrczrk-Trqg-Pitf hol 2-4-1 % External Patch 2 times a day. 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) Inject 5 Units under [...] as of this encounter (statuses as of 04/13/2024) Active Problems Problem Noted Date Diagnosed Date Food insecurity 07/05/2023 Overview: Per [facility] Protocol Chronic diastolic heart failure [...] as of this encounter (statuses as of 04/13/2024) Resolved Problems Problem Noted Date Diagnosed Date [...] as of this encounter (statuses as of 04/13/2024) Immunizations Name Administration Dates Next Due COVID-19 mRNA, LNP-s, No Pre serve, 2-Dose Series ([employer]) 11/29/2020,11/08/2020 Covid-19, Mrna, Lnp-s, Pf, B ivalent, 30 Mcg, IM, 12 yrs and above (Pfizer) 08/10/2022 H1N1 2009 Influenza, IM 11/04/2009 Hepatitis B, 20+ yrs 07/13/2013,06/08/2013 Pneumococcal Conjugate Vacci ne, 20-valent ([id number]) 02/15/2023 Pneumococcal Polysaccharide PPV23 (Pneumovax) 04/26/2009 Seasonal Influenza, MDCK, Tr ivalent, PF, (Flucelvax) 06/08/2013 Seasonal Influenza, PF, 6 M & above, IM , (FluLaval or Fluzone) 04/13/2023,05/29/2022,06/03/2021,05/03,05/10/2018 Seasonal Influenza, Quadriva lent, No Preserve, IM 04/06/2017 Seasonal Influenza, Trivalen t, (IIV3), PF, (Fluzone) 04/11/2024 Seasonal Influenza, Trivalen t, (IIV3), with Preserv, (Fluzone) 05/16/2014,10/20/2012,07/14/2011,07/24,06/06/2009,07/08/2000 TD - Tetanus/Diptheria (ADULT) 06/02/2003 TDAP [...] on Wednesday after my endo day at [facility] or at lunch hour (12:15) that would be great thanks. Called patient to get setup with an appt.. I could not hear patient , there was not connection and she hung up. Pt needs an appt Wednesday at [facility] at [address] Mace * Telephone [...] 10:20 AM EST Office Visit Pulmonary Medicine, [facility] 132 [facility] [place] [address] Fransico Padilla MD [address] [place] [address] 09/14/2024 2:20 PM EST Office Visit Nephrology, [facility] 200 [facility] [place] [address] Cali Brown MD 200 [facility] [place] [address] Scheduled Procedures Name Priority Associated Diagnoses Date/Ti me COLONOSCOPY FLEXIBLE PROXIMAL DIAGNOSTIC Recall Screen for colon cancer Health Maintenance Due Date Last Done Comments Fecal Occult Blood Test 2007 Sigmoidoscopy 2007 Hepatitis B Vaccine (3 of 3 - Risk 3-dose series) 12/06/2013 07/13/2013, 06/08/2013 Cologuard 05/03/2022 05/03/2019 Depression Screening 05/01/2023 05/01/2022 Mammogram 06/17/2023 06/17/2022, 11/0 10/2021, 08/18/2018, Additional history exists HbA1c 11/18/2023 05/19/2023, 01/24, 08/03/2022, Additional history exists Albumin/Creatinine Ratio 02/17/2024 023, 01/27/2022, 11/15/2018, Additional history exists COVID-19 Vaccine ( season) 2024 08/10/2022, 11/29/2020, 11/08/2020 Diabetic Foot Exam 05/19/2024 05/19/2023, 1 , 02/25/2017, Additional history exists GFR 05/23/2024 11/22/2023, 06/26, 06/10/2023, Additional history exists CKD PHOS USE SMARTSET 43246 07/16/202406/26, 03/11/2023, 08/03/2022 CKD HGB USE SMARTSET 67432 11/21/202411/21, 07/16/2023, 07/16/2023, Additional history exists Diabetic [...] filedocumented as of this encounter Care Teams Car Wiper Relationship Specialty Start Date End Date Jonathan Rees III, MD 200 [facility] [place] [address] PCP - General 03/09/1996 documented as of this encounter
--- OUTSIDE RECORDS SUMMARY | 2024-07-03 03:07 | External Medical Summary | Summary of Care ---
Author Name Unknown Organization [facility] Address [address] [place] [facility] [place] [address] Phone [phone] Care Team Providers Care Finishing Lab Technician Name Role Phone Cabrera SCALES MD, Brianna Potter Primary Care Provider [phone] Reason for Visit * Reason Comments Medication Refill Encounter Details Date Type Department Care Team (Late st Contact Info) Description 03/22/2024 Refill Family Practice [facility] [address] [place] [address] Brianna Patel III, MD [address] [place] [address] Hyperlipidemia, unspecified hyperlipidemia type Allergies Active Allergy Reactions Criticality Noted Date [...] 05/17/2023 Docusate Sodium 100 MG Oral Capsule (Colace)Indications :Constipation, unspecified constipation type Take 1 Capsule by mouth 2 times a day as needed. Active Methyl Cwxlqpxkqg-Uddl-Tph thol 2-4-1 % External Patch 2 times a day. 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 90 Tablet 3 4 Active Diclofenac Sodium 1 % External Gel (Voltaren) Apply topically to back of knees 2 times a day. 400 g 6 4 Active Rosuvastatin Calcium 5 MG Oral Tablet (Crestor)Indication s:Hyperlipidemia, unspecified hyperlipidemia type Take 1 Tablet by mouth in the morning. 90 Tablet 3 4 Active Rosuvastatin Calcium 5 MG Oral Tablet (Crestor)Indication s:Hyperlipidemia, unspecified hyperlipidemia type Take 1 Tablet by mouth in the morning. 90 Tablet 3 3 03/22/20 24 Discontinu ed(Refill) Diclofenac Sodium 1 % External Gel (Voltaren) Apply topically to affected area 2 times a day. Apply to back knees 400 g 6 3 03/22/20 24 Discontinu ed(Refill) documented as of this encounter (statuses as of 03/23/2024) Active Problems Problem Noted Date Diagnosed Date Food insecurity 07/05/2023 Overview: Per [facility] Protocol Chronic diastolic heart failure [...] yrs 07/13/2013,06/08/2013 Pneumococcal Conjugate Vacci ne, 20-valent ([id number]) 02/15/2023 Pneumococcal Polysaccharide PPV23 (Pneumovax) 04/26/2009 Seasonal Influenza, MDCK, Tr ivalent, PF, (Flucelvax) 06/08/2013 Seasonal Influenza, PF, 6 M & above, IM , (FluLaval or Fluzone) 04/13/2023,05/29/2022,06/03/2021,05/03,05/10/2018 Seasonal Influenza, Quadriva lent, No Preserve, IM 04/06/2017 Seasonal Influenza, Trivalen t, (IIV3), with Preserv, [...] encounter Miscellaneous Notes * Telephone Encounter - Brianna Patel III, MD - 03/23/2024 11:24 AM EDTSigned Prescriptions: Disp Refills Diclofenac Sodium 1 % External Gel (Voltar*400 g 6 Sig: Apply topically to affected area 2 times a day. Apply to back kneesAuthorizing Provider: BRIANNA PATEL III Rosuvastatin Calcium 5 MG Oral Tablet (Cre*90 Tab*3 Sig: Take 1 Tablet by mouth in the morning.Authorizing Provider: BRIANNA PATEL III * Telephone Encounter - Nita Jarvis [facility] - 03/22/2024 2:36 PM EDTPending Prescriptions: Disp Refills Diclofenac Sodium 1 % External Gel (Voltar*400 g 6 Sig: Apply topically to affected area 2 times a day. Apply to back knees Rosuvastatin Calcium 5 MG Oral Tablet (Cre*90 Tab*3 Sig: Take 1 Tablet by mouth in the morning. documented in this encounter Plan of Treatment Upcoming Encounters Date Type Department Care Team (Late st Contact Info) Description 09/14/2024 2:20 PM EST Office Visit [place]phrology, [place] [address] [place] [address] Cali Brown MD [address] [place] [address] Scheduled Procedures Name Priority Associated Diagnoses Date/Ti [...] Additional history exists CKD PHOS USE SMARTSET 13028 07/16/202406/26, 03/11/2023, 08/03/2022 CKD HGB USE SMARTSET 66186 11/21/202411/21, 07/16/2023, 07/16/2023, Additional history exists Diabetic [...] as of this encounter Visit Diagnoses Diagnosis Hyperlipidemia, unspecified hyperlipidemia type documented in this encounter Care Teams Finishing Lab Technician Relationship Specialty Start Date End Date Brianna Patel III, MD [address] [place] [address] PCP - General 03/09/1996 documented as of this encounter
--- OUTSIDE RECORDS SUMMARY | 2024-07-03 03:08 | External Medical Summary | Summary of Care ---
Author Name Unknown Organization [facility] Address [address] [facility] [place] [address] Phone [phone] Care Team Providers Care Photoengraving Sketch Maker Name Role Phone Cabrera SCALES MD, Jonathan Potter Primary Care Provider [phone] Reason for Visit * Reason Comments eRx-Medication Refill Encounter Details Date Type Department Care Team (Late st Contact Info) Description 01/13/2024 Refill [facility] Practice [facility] [address] [facility] [place] [address] Kathi Grijalva, DO [facility] [address] Chronic thoracic back pain, unspecified back pain laterality Allergies Active Allergy Reactions Criticality Noted Date Comments Metolazone 07/16/2023 Severe Electrolyte imbalance needing Hospital admission Morphine Sulfate Nausea/vomiting 04/26/2009 documented as of this encounter (statuses as of 01/14/2024) Medications Medication Sig Dispensed Refills Start Date End Date Status analgesic balm (BLAINE JENNINGS) 15% OINTIndications:Kn ee pain twice daily as needed (STOP PAIN) 1 Tube 11 01/31/20 15 Active OneTouch Verio w/Device Kit Use up to 4 times a day E11.9 1 Kit 01/07/20 22 Active Albumin Human 25 % Intravenous Solution Infuse 25g albumin pre paracentesis. If fluid removed is >5L, please infuse 25g post paracentesis. Run at 100mL/hr. 200 mL 04/27/20 22 Active Vitamin D 25 MCG (1000 UT) Oral Tablet Take by mouth first thing in the morning . Active Eliquis 5 MG Oral Tablet Take by one tablet by mouth every 12 hours . 180 Tablet 3 02/10/20 Active ProAir HFA 108 (90 Base) MCG/ACT Inhalation Aerosol SolutionIndication s:Moderate persistent asthma without complication Inhale 2 Puffs by mouth in the morning and 2 Puffs at noon and 2 Puffs in the evening and 2 Puffs before bedtime. 18 g 3 02/10/20 Active Additional Information Patient taking differently:2 Puff InhalationQID PRN, Reported on 05/17/2023 Rosuvastatin Calcium 5 MG Oral Tablet (Crestor)Indicatio ns:Hyperlipidemia, unspecified hyperlipidemia type Take 1 Tablet by mouth in the morning. 90 Tablet 3 02/10/20 Active Diclofenac Sodium 1 % External Gel (Voltaren) Apply topically to affected area 2 times a day. Apply to back knees 400 g 6 02/16/20 Active Docusate Sodium 100 MG Oral Capsule (Colace)Indication s:Constipation, unspecified constipation type Take 1 Capsule by mouth 2 times a day as needed. Active rOPINIRole HCl 0.25 MG Oral Tablet (Requip)Indication s:RLS (restless legs syndrome) Take 1 Tablet by mouth at bedtime. 90 Tablet 3 03/08/20 Active Methyl Ciprktjojq-Vabl-Gv nthol 2-4-1 % External Patch 2 times a day. 02/26/20 Active OneTouch Delica Plus Pftlgl68S USE TWICE DAILY 200 Each 3 04/19/20 Active OneTouch Verio In Vitro Strip (Glucose Blood) USE DIRECTED TWO TIMES A DAY 200 Strip 3 04/19/20 Active Unifine Pentips 31G X 8 MM (Insulin Pen Needle)Indications :DM type 2, not at goal (HCC) use 4 times daily as directed (Novolog & Lantus) 400 Each 3 04/27/20 Active Insulin Glargine Solostar 100 UNIT/ML Subcutaneous Solution Pen-injector (Lantus SoloStar)Indicatio ns:DM type 2, not at goal (HCC) INJECT 25 units UNDER THE SKIN daily in the morning 30 mL 3 04/27/20 Active Additional Information Patient taking differently: INJECT 21 units UNDER THE SKIN daily in the morning, Reported on 05/19/2023 NovoLOG FlexPen 100 UNIT/ML Subcutaneous Solution Pen-injector (insulin aspart)Indications :Type 2 diabetes mellitus with stage 4 chronic kidney disease, unspecified whether 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 Inject with meals. 15 mL 3 04/27/20 23 Active Torsemide 20 MG Oral Tablet (Demadex) Take 1 Tablet by mouth in the morning. 90 Tablet 3 05/23/20 23 Active Spironolactone 50 MG Oral Tablet (Aldactone)Indicat ions:Chronic kidney disease, stage 3b (HCC) Take 2 Tablets by mouth in the morning. 180 Tablet 3 05/23/20 23 Active Eylea 2 MG/0.05ML Intravitreal Solution Prefilled Syringe 05/29/20 Active Multivitamin Adult Oral Tablet Take by mouth. Active Empagliflozin 10 MG Oral Tablet (Jardiance) Take 1 Tablet by mouth in the morning. 90 Tablet 3 08/04/19 24 Active traMADol HCl 50 MG Oral Tablet (Ultram)Indication s:Chronic thoracic back pain, unspecified back pain laterality TAKE 1 TABLET BY MOUTH EVERY 6 HOURS NEEDED FOR MODERATE PAIN 30 Tablet 01/14/20 24 Active Pantoprazole Sodium 20 MG Oral Tablet Delayed Release (Protonix) Take 1 Tablet by mouth 2 times a day with morning and evening meals. 180 Tablet 1 07/13/20 23 024 Discontinued(Re fill) traMADol HCl 50 MG Oral Tablet (Ultram)Indication s:Chronic thoracic back pain, unspecified back pain laterality Take 1 Tablet by mouth every 6 hours as needed for Moderate Pain 30 Tablet 11/10/19 24 024 Discontinued Hospital, Clinic, or Other Facility Administered Medication [...] as of this encounter (statuses as of 01/14/2024) Active Problems Problem Noted Date Diagnosed Date [...] as of this encounter (statuses as of 01/14/2024) Resolved Problems Problem Noted Date Diagnosed Date [...] as of this encounter (statuses as of 01/14/2024) Immunizations Name Administration Dates Next Due COVID-19 mRNA, LNP-s, No Pre serve, 2-Dose Series (CIDCO) 11/29/2020,11/08/2020 Covid-19, Mrna, Lnp-s, Pf, B ivalent, 30 Mcg, IM, 12 yrs and above (Pfizer) 08/10/2022 H1N1 2009 Influenza, IM 11/04/2009 Hepatitis B, 20+ yrs 07/13/2013,06/08/2013 Pneumococcal Conjugate Vacci ne, 20-valent ([id number]) 02/15/2023 Pneumococcal Polysaccharide PPV23 (Pneumovax) 04/26/2009 Season [...] 04/13/2023 Does the household have a re lar source of income? (Household - for ages [...] encounter Miscellaneous Notes * Telephone Encounter - Kathi Grijalva DO - 01/14/2024 9:32 AM EDTSigned Prescriptions: Disp Refills traMADol HCl 50 MG Oral Tablet (Ultram) 30 Tab*0 Sig: TAKE 1 TABLET BY MOUTH EVERY 6 HOURS NEEDED FOR MODERATE PAIN Authorizing Provider: KATHI GRIJALVA * Telephone Encounter - Stephanie Gama [facility] - 01/14/2024 6:00 AM EDT Pending Prescriptions: Disp Refills traMADol HCl 50 MG Oral Tablet 30 Tab*0 Sig: Take 1 Tablet by mouth every 6 hours as needed for Moderate Pain * Telephone Encounter - Stephanie Gama [facility] - 01/14/2024 5:59 AM EDT Pending Prescriptions: Disp Refills traMADol HCl 50 MG Oral Tablet 30 Tab*0 Sig: Take 1 Tablet by mouth every 6 hours as needed for Moderate Pain * Telephone Encounter - Stephanie Gama [facility] - 01/14/2024 5:58 AM EDT Rx from 11/09 never filled I have reviewed the patients controlled substance dispensing history in the Prescription Drug Monitoring Program in compliance with the [facility] regulations before prescribing a controlled substance. PDMP checked on 01/14/2024. Pending Prescriptions: Disp Refills traMADol HCl 50 MG Oral Tablet (Ultram) [*30 Tab*0 Sig: TAKE 1 TABLET BY MOUTH EVERY 6 HOURS NEEDED FOR MODERATE PAIN Last Visit: 05/19/2023 (in office), Visit date not found (telemedicine) Next Visit: Visit date not found Date medication was last filled: 09/15 Date medication is due for refill: 09/23 Pharmacy: [facility] [address] [place] [address] [place] [place] Is this request for a controlled substance? Yes and Urine Drug Screen Not completed Toxicology results: Results for orders placed or performed in visit on 08/03/22 TOXICOLOGY, URINE SCREEN W/ CONFIRMATION Result Value Amphetamines Screen, U Negative Benzodiazepines Screen, U Negative Cannabinoids Screen, U Negative Cocaine Metabolite Screen, U Negative Fentanyl Screen, U Negative Hydrocodone Screen, U Negative Methadone Metabolite Screen, U Negative Morphine/Codeine Screen, U Negative Oxycodone Screen, U Negative Narrative Cutoff Concentrations: Drug Level Amphetamines 500 ng/mL Benzodiazepines 100 ng/mL Cannabinoids 50 ng/mL Cocaine Metabolite 150 ng/mL Fentanyl 1 ng/mL Hydrocodone / Hydromorphone 300 ng/mL Methadone Metabolite 100 ng/mL Morphine / Codeine 300 ng/mL Oxycodone / Oxymorphone 100 ng/mL Screening results are presumptive and can only be used for medical purposes. Positive screening results are reflexed to confirmatory testing. Please approve if appropriate. Thank you, Stephanie Gama PharmD. Clinical Pharmacist [facility] ([facility]) 01/14/2024, 5:58 AM * Telephone Encounter - Tyrone Amin PHARM Tech - 01/13/2024 1:24 PM EDT Did you pend patient's preferred pharmacy and medication before forwarding?yes Pharmacy: [facility] [address] [address] Pending Prescriptions: Disp Refills traMADol HCl 50 MG Oral Tablet (Ultram) [*30 Tab*0 Sig: TAKE 1 TABLET BY MOUTH EVERY 6 HOURS NEEDED FOR MODERATE PAIN Last Visit: 05/19/2023 (in office), Visit date not found (telemedicine) Next Visit: Visit date not found If no future appointments scheduled, and last appointment is greater than a year ago, please schedule patient for a follow-up appointment Last date the medication was ordered: 11/10/23 Is this request for a controlled substance?Yes, What was the last refill date 11/10/23 w/ quantity 30 and dosage 50 mg and Urine Drug Screen was completed Urine Drug Screen: Results for orders placed or performed in visit on 08/03/22 TOXICOLOGY, URINE SCREEN W/ CONFIRMATION Result Value Amphetamines Screen, U Negative Benzodiazepines Screen, U Negative Cannabinoids Screen, U Negative Cocaine Metabolite Screen, U Negative Fentanyl Screen, U Negative Hydrocodone Screen, U Negative Methadone Metabolite Screen, U Negative Morphine/Codeine Screen, U Negative Oxycodone Screen, U Negative Narrative Cutoff Concentrations: Drug Level Amphetamines 500 ng/mL Benzodiazepines 100 ng/mL Cannabinoids 50 ng/mL Cocaine Metabolite 150 ng/mL Fentanyl 1 ng/mL Hydrocodone / Hydromorphone 300 ng/mL Methadone Metabolite 100 ng/mL Morphine / Codeine 300 ng/mL Oxycodone / Oxymorphone 100 ng/mL Screening results are presumptive and can only be used for medical purposes. Positive screening results are reflexed to confirmatory testing. Patient Phone Numbers Labs: Lab Results Component Value Date/Time CREAT 1.9 (H) 11/22/2023 10:12 AM CREAT 0.4 (L) 11/15/2018 12:55 PM POTASSIUM 5.1 11/22/2023 10:12 AM POTASSIUM 4.5 11/15/2018 12:55 PM TSH 4.29 (H) 08/03/2022 02:20 PM TSH 1.67 05/31/2009 01:53 PM LDLCALC 68 08/03/2022 02:20 PM LDLCALC 50 11/15/2018 12:55 PM LDLDIRECT 130 (H) 02/25/2017 02:31 PM ALT 27 11/22/2023 10:12 AM ALT 22 11/15/2018 12:55 PM HGBA1C 5.9 (H) 05/19/2023 09:49 AM HGBA1C 10.8 (A) 08/07/2019 12:00 AM HGBA1C 9.5 (H) 11/15/2018 12:55 PM documented in this encounter Plan of Treatment Upcoming Encounters Date Type Department Care Team (Late st Contact Info) Description 01/26/2024 11:20 AM EDT Office Visit [facility] [address] [place] [address] Cali Brown MD [address] [place] [id number] Scheduled Procedures Name Priority Associated Diagnoses Date/Ti me COLONOSCOPY FLEXIBLE PROXIMAL DIAGNOSTIC Recall Screen for colon cancer Health Maintenance Due Date Last Done Comments Fecal Occult Blood Test 2007 Sigmoidoscopy 2007 Hepatitis B (3 of 3 - Risk 3-dose series) 12/06/2013 07/13/2013, 06/08/2013 Cologuard 05/03/2022 05/03/2019 COVID-19 Vaccine ( season) 2023 08/10/2022, 11/29/2020, 11/08/2020 Depression Screening 05/01/2023 05/01/2022 Mammogram 06/17/2023 06/17/2022, 10/2021, 08/18/2018, Additional history exists HbA1c 11/18/2023 05/19/2023, 01/24, 08/03/2022, Additional history exists Albumin/Creatinine Ratio 02/17/2024 023, 01/27/2022, 11/15/2018, Additional history exists Diabetic Foot Exam 05/19/2024 05/19/2023, 1 , 02/25/2017, Additional history exists GFR 05/23/2024 11/22/2023, 06/26, 06/10/2023, Additional history exists CKD PHOS USE SMARTSET 19135 07/16/202406/26, 03/11/2023, 08/03/2022 CKD HGB USE SMARTSET 06695 11/21/202411/21, 07/16/2023, 07/16/2023, Additional history exists Diabetic Eye Exam 12/12/2024 12/13/2023, , 12/13/2023, Additional history exists Pap Smear [...] 04/26/2009 Influenza Vaccine (FLU shot) Completed , 05/29/2022, 06/03/2021, Additional history exists GARDASIL-HPV IMMUNIZATION SERIES Aged Out No longer eligible based on patient's age to complete this topic MENINGOCOCCAL (MENACTRA/MENVEO) Aged Out No longer eligible based on patient's age to complete this topic documented as of this encounter Medical Devices Not on filedocumented as of this encounter Visit Diagnoses Diagnosis Chronic thoracic back pain, unspecified back pain laterality documented in this encounter Care Teams Photoengraving Sketch Maker Relationship Specialty Start Date End Date oJnathan Rees III, MD [address] [place] [address] PCP - General 03/09/1996 documented as of this encounter
--- OUTSIDE RECORDS SUMMARY | 2024-07-03 03:08 | External Medical Summary | Summary of Care ---
Author Name Unknown Organization [facility] Address [address] [facility] [place] [address] Phone [phone] Care Team Providers Care Radio Installer Name Role Phone Cabrera SCALES MD, Jonathan Potter Primary Care Provider [phone] Reason for Visit * Reason Comments Return Visit Chronic Kidney Disease (CKD) Encounter Details Date Type Department Care Team (Late st Contact Info) Description 01/26/2024 11:20 AM EDT Office Visit [facility] [address] [place] [address] Cali Brown MD 200 [facility] [place] [address] CKD (chronic kidney disease) stage 4, GFR 15-29 ml/min (HCC)*; Liver cirrhosis secondary to JYOCE (HCC); Chronic diastolic heart failure due to valvular disease (HCC) Allergies Active Allergy Reactions Criticality Noted Date Comments Metolazone 07/16/2023 Severe Electrolyte imbalance needing Hospital admission Morphine Sulfate Nausea/vomiting 04/26/2009 documented as of this encounter (statuses as of 01/26/2024) Medications Medication Sig Dispensed Refills Start Date [...] bedtime. 90 Tablet 3 03/08/2023 Active Methyl Qucrzqigvo-Eqyc-Lxcu hol 2-4-1 % External Patch 2 times a day. 02/25/2023 Active OneTouch Delica Plus [id number] USE TWICE DAILY 200 Each 3 04/19/2023 [...] stage 4 chronic kidney disease, unspecified whether fdc insulin use (HCC) Inject 5 Units under [...] as of this encounter (statuses as of 01/26/2024) Active Problems Problem Noted Date Diagnosed Date [...] as of this encounter (statuses as of 01/26/2024) Resolved Problems Problem Noted Date Diagnosed Date [...] as of this encounter (statuses as of 01/26/2024) Immunizations Name Administration Dates Next Due COVID-19 mRNA, LNP-s, No Pre serve, 2-Dose Series (Picturelife) 11/29/2020,11/08/2020 Covid-19, Mrna, Lnp-s, Pf, B ivalent, 30 Mcg, IM, 12 yrs and above (Picturelife) 08/10/2022 H1N1 2009 Influenza, IM 11/04/2009 Hepatitis B, 20+ yrs 07/13/2013,06/08/2013 Pneumococcal Conjugate Vacci ne, 20-valent ([id number]) 02/15/2023 Pneumococcal Polysaccharide PPV23 (Pneumovax) 04/26/2009 Season [...] Sign Reading Time Taken Comments Blood Pressure 109/71 01/26/2024 10:43 AM EDT Pulse 73 01/26/2024 10:43 AM EDT Temperature 36.9 C (98.5 F) 01/26/2024 10:43 AM E DT Respiratory Rate 20 01/26/2024 10:43 AM EDT Oxygen Saturation 97% 01/26/2024 10:43 AM EDT Inhaled Oxygen Concentration - - Weight 92.6 kg (204 lb 3.2 oz) 01/26/2024 10:43 AM EDT Height - - Body Mass Index 35.61 03/25/2023 12:52 PM EDT documented in this encounter Progress Notes * Cali Brown MD - 01/26/2024 10:44 AM EDT Chief Complaint Patient presents with Return Visit Chronic Kidney Disease (CKD) Background: 63-year-old female with decompensated liver cirrhosis secondary to JOYCE CKD stage IIIB with a very fluctuating baseline creatinine longstanding type 2 diabetes asthma history of DVT/PE onchronic Eliquis. Patient was recently admitted after she reported dizziness and generalized witnessed for the preceding few days. She was actually supposed to have abdominal paracentesis done but she had absolutely no ascites so was not done but because of her symptoms was sent over to the emergency for admission. H emoglobin was noted to be somewhat low and she did get blood transfusion but there was no major GI bleeding noted. Nephrology was involved in her management. Her potassium was extremely low and required a massive supplementation to get it better. She did not get much diuretics while she was in the hospital. At discharge metolazone was stopped torsemide was significantly lowered to 20 mg daily [id number] added. Lisinopril and metformin was permanently stopped. This was done through nephrology. Since last visit 2022----she is doing quite good without any hospitalization or emergency department visit Not much edema now. Currently taking torsemide 20 daily and spironolactone 100 daily. Now not needing any Potassium Kidney function fluctuates quite a bit She denies having any complaints today No edema and no abdominal distention currently NSAID No Renal Stone No Herbal Medication No Urinary Complaints No Current Outpatient Medications Medication Sig Dispense Refill analgesic balm (BLAINE JENNINGS) 15% OINT twice daily as needed (STOP PAIN) 1 Tube 11 OneTouch Verio w/Device Kit Use up to 4 times a day E11.9 1 Kit 0 Eliquis 5 MG Oral Tablet Take by one tablet by mouth every 12 hours . 180 Tablet 3 ProAir HFA 108 (90 Base) MCG/ACT Inhalation Aerosol Solution Inhale 2 Puffs by mouth in the morningand 2 Puffs at noon and 2 Puffs in the evening and 2 Puffs before bedtime. (Patient taking differently: Inhale 2 Puffs by mouth 4 times a day as needed.) 18 g 3 Rosuvastatin Calcium 5 MG Oral Tablet (Crestor) Take 1 Tablet by mouth in the morning. 90 Tablet 3 Diclofenac Sodium 1 % External Gel (Voltaren) Apply topically to affected area 2 times a day. Applyto back knees 400 g 6 Docusate Sodium 100 MG Oral Capsule (Colace) Take 1 Capsule by mouth 2 times a day as needed. rOPINIRole HCl 0.25 MG Oral Tablet (Requip) Take 1 Tablet by mouth at bedtime. 90 Tablet 3 OneTouch Verio In Vitro Strip (Glucose Blood) USE DIRECTED TWO TIMES A DAY 200 Strip 3 Unifine Pentips 31G X 8 MM (Insulin Pen Needle) use 4 times daily as directed (Novolog & Lantus) 400 Each 3 Insulin Glargine Solostar 100 UNIT/ML Subcutaneous Solution Pen-injector (Lantus SoloStar) INJECT 25 units UNDER THE SKIN daily in the morning (Patient taking differently: INJECT 21 units UNDER THE SKIN daily in the morning) 30 mL 3 NovoLOG FlexPen 100 UNIT/ML Subcutaneous Solution Pen-injector (insulin aspart) Inject 5 Units under the skin in the morning and 5 Units at noon and 5 Units in the evening. Inject with meals. 15 mL 3 Torsemide 20 MG Oral Tablet (Demadex) Take 1 Tablet by mouth in the morning. 90 Tablet 3 Spironolactone 50 MG Oral Tablet (Aldactone) Take 2 Tablets by mouth in the morning. 180 Tablet 3 Eylea 2 MG/0.05ML Intravitreal Solution Prefilled Syringe Multivitamin Adult Oral Tablet Take 1 Tablet by mouth in the morning. Empagliflozin 10 MG Oral Tablet (Jardiance) Take 1 Tablet by mouth in the morning. 90 Tablet 3 Pantoprazole Sodium 20 MG Oral Tablet Delayed Release (Protonix) Take 1 Tablet by mouth 2 times a day with morning and evening meals. 180 Tablet 1 traMADol HCl 50 MG Oral Tablet (Ultram) TAKE 1 TABLET BY MOUTH EVERY 6 HOURS NEEDED FOR MODERATEPAIN 30 Tablet 0 Albumin Human 25 % Intravenous Solution Infuse 25g albumin pre paracentesis. If fluid removed is >5L, please infuse 25g post paracentesis. Run at 100mL/hr. 200 mL 0 Vitamin D 25 MCG (1000 UT) Oral Tablet Take by mouth first thing in the morning . (Patient not taking: Reported on 07/16/2023) Methyl Eyckkvhlvj-Yksn-Nxheueb 2-4-1 % External Patch 2 times a day. OneTouch Delica Plus [id number] USE TWICE DAILY 200 Each 3 Current Facility-Administered Medications Medication Dose Route Frequency Provider Last Rate Last Admin Albuterol Sulfate (Proventil) (2.5 MG/3ML) 0.083% inhalation solution 2.5 mg 2.5 mg Nebulizer PRN HillReilly PA-C Albuterol Sulfate (Proventil) (5 MG/ML) 0.5% *conc* inhalation solution 2.5 mg 2.5 mg Nebulizer PRNHReilly cruz PA-C Past Medical History: Diagnosis Date Asthma Diabetes mellitus (HCC) Diabetic eye exam (HCC) 07/09/2012 no retinopathy Morbid obesity, BMI not known (HCC) Rheumatic fever 1976 Past Surgical History: Procedure Laterality Date COLONOSCOPY, DIAGNOSTIC (RECTUM) 06/05/2022 normal scope/ no specimens collected / 10 year recall / COLONOSCOPY FLEXIBLE PROXIMAL DIAGNOSTIC performed by Deidra Mace MD at ENDOSCOPY [facility] EGD, FLEXIBLE, DIAGNOSTIC N/A 02/26/2023 portal hypertensive gastropathy/non-bleeding gastric ulcers/biopsies show mild irritation of stomach/EGD/[place] LAPAROSCOPY; CHOLECYSTECTOMY Dr Wilkes MAMMOGRAM SCREENING BILATERAL 06/03/2010 cat. 2, repeat in 12idhs Review of patient's allergies indicates: Allergen Reactions Metolazone Severe Electrolyte imbalance needing Hospital admission Morphine Sulfate Nausea/vomiting Family History Problem Relation Name Age of Onset Diabetes Mother Hypertension Mother Heart disease Father COPD Father No Known Problems Brother Benson Breast Cancer No significant family history Family History of Renal Disease No Social History Socioeconomic History Marital status: Single Spouse name: Not on file Number of children: Not on file Years of education: 12 Highest education level: Not on file Occupational History Not on file Tobacco Use Smoking status: Never Smokeless tobacco: Never Vaping Use Vaping status: Never Used Substance and Sexual Activity Alcohol use: No Comment: in the past, Drug use: No Sexual activity: Not on file Other Topics Concern Not on file Social History Narrative 1 dog No mold Social Determinants of Health Financial Resource Strain: Low Risk (04/13/2023) Financial Resource Strain Do you have any trouble paying for your medications, or do you think you might in the future? (Adult - for ages 18 years and over): No Does your family have trouble paying for medicine? (Household - for ages 0-17 years): Not on file Food Insecurity: No Food Insecurity (04/13/2023) Food Insecurity Do you need food for this week? (Adult - for ages 18 years and over): No Are you able to get enough food for your family? (Household - for ages 0-17 years): Not on file Does your family need food this week? (Household - for ages 0-17 years): Not on file Do you always have enough food for your family? (Household - for ages 0-17 years): Not on file Recent Concern: Food Insecurity - Food Insecurity Present (04/13/2023) Hunger Vital Sign Worried About Running Out of Food in the Last Year: Sometimes true Ran Out of Food in the Last Year: Sometimes true Transportation Needs: No Transportation Needs (04/13/2023) Transportation Needs Do you have trouble getting a ride to medical visits or work? (Adult - for ages 18 years and over):Never True Does your family have a hard time getting a ride to doctors visits? (Household - for ages 0-17 years): Not on file Has lack of transportation kept you from medical appointments, meetings, work, or from getting things needed for daily living? Check all that apply. (Adult - for ages 18 years and over): Not on file Do you (or your family) have trouble finding or paying for a ride (transportation)? (Household - for ages 0-17 years): Not on file Social Connections: Socially Integrated (04/13/2023) Social Connections How often do you feel lonely or isolated from those around you? (Adult - for ages 18 years and over): Never Housing Stability: Low Risk (04/13/2023) Housing Stability Do you currently live in a retirement or have no steady place to sleep at night? (Adult - for ages 18 years and over): No Do you think you are at risk of becoming homeless? (Adult - for ages 18 years and over): No Does your family worry about paying for your home or becoming homeless? (Household - for ages 0-17 years): Not on file Are you homeless or worried that you might be in the future? (Adult - for ages 18 years and over): Not on file Are you (or your family) homeless or worried that you might be in the future? (Household - for ages0-17 years): Not on file Review of Systems: She feels at about her baseline. Appetite is poor but no worse than usual. But she feels somewhat stronger than when she went to the hospital. Slightly more edema now. Denies any abdominal discomfort. Denies any black tarry stool. Overall 12 systems reviewed and is otherwise negative OBJECTIVE: PHYSICAL EXAM: BP 109/71 (BP Site: Right Arm, BP Position: Sitting, BP Cuff Size: Large) | Pulse 73 | Temp 36.9 C (98.5 F) (Skin) | Resp 20 | Wt 92.6 kg (204 lb 3.2 oz) | SpO2 97% | BMI 35.61 kg/m | BSA 2.04 m General: alert and ill looking Neck: supple, no JVD Heart: regular rate & rhythm, no murmur, and no gallops Lungs: normal respiratory rate and rhythm, lungs clear to auscultation Abdomen: abdomen soft and non-tender Back: back symmetric, no curvature, no costovertebral angle tenderness Extremities: edema --Trace Neuro Exam: alert & oriented x 3 with fluent speech Skin: no rashes or significant lesions BP Readings from Last 4 Encounters: 01/26/24 109/71 07/16/23 120/81 05/19/23 114/76 05/17/23 132/74 Wt Readings from Last 4 Encounters: 01/26/24 92.6 kg (204 lb 3.2 oz) 07/16/23 87 kg (191 lb 11.2 oz) 05/19/23 90.7 kg (200 lb) 05/17/23 90.4 kg (199 lb 6.4 oz) Estimated body mass index is 35.61 kg/m as calculated from the following: Height as of 03/25/23: 1.613 m (5' 3.5"). Weight as of this encounter: 92.6 kg (204 lb 3.2 oz). Recent Labs Units 11/22/23 1012 07/16/23 1511 06/10/23 1026 SODIUM - [facility] mmol/L 139 140 140 POTASSIUM - [facility] mmol/L 5.1 4.9 5.2* CHLORIDE - [facility] mmol/L 101 102 105 CO2 - [facility] mmol/L 26 27 23 BUN - [facility] mg/dL 56* 43* 48* CREATININE - [facility] mg/dL 1.9* 2.1* 2.2* ESTIMATED GLOMERULAR FILTRATION RATE - [facility] mL/min 30* 26* 25* Recent Labs Units 11/22/23 1012 07/16/23 1511 03/11/23 0928 08/03/22 1420 06/11/22 1052 HGB g/dL 11.2* 11.2* 9.7* < > 9.8* FERRITIN - [facility] ng/mL -- -- -- -- 377* TRANSFERRIN SATURATION PERCENT - [facility] % -- -- -- -- 25 < > = values in this interval not displayed. Recent Labs Units 11/22/23 1012 07/16/23 1511 06/10/23 1026 03/30/23 1348 03/11/23 0928 12/03/22 0820 08/03/22 1420 CALCIUM - [facility] mg/dL 9.3 10.3* 9.4 < > 9.4 < > 9.7 PHOSPHORUS - [facility] mg/dL -- 3.4 -- -- 3.6 -- 3.3 PTH - [facility] pg/mL -- 58 -- -- 105* -- -- < > = values in this interval not displayed. Recent Labs Units 05/19/23 0949 02/15/23 1022 08/03/22 1420 HEMOGLOBIN A1C - [facility] % -- 10.4* 6.7* HEMOGLOBIN A1C POCT - [facility] % 5.9* -- -- Recent Labs Units 03/08/23 1210 02/16/23 1153 01/27/22 1014 ALBUMIN / CREATININE RATIO, URINE - [facility] mg/g Creat -- 84* 36* PROTEIN/ CREATININE RATIO, URINE - [facility] mg/g 261* -- -- ASSESSMENT: CKD (chronic kidney disease) stage 4, GFR 15-29 ml/min ([facility]) Fluctuating baseline with ranging from CKD 3B to Stage 4. Last Creat was 2.2 GFR 25. Etiology combination longstanding diabetes as well as cirrhosis. Given cirrhosis CKD 4 and CHF , unfortunately creatinine will continue to fluctuate Will do labs as below today to have better idea of current status However I do not feel she needs metolazone and would strongly avoid it We should be able to manage her fluid status with torsemide and spironolactone combination. During her recent hospitalization even with massive dose of potassium supplementation her potassium was critically low. But now potassium is high normal without any supplements She should also not be on metformin ( given end-stage liver disease as well as CKD 4 ) Lisinopril (for combination of decompensated liver cirrhosis and CKD 4) ever. Most recent labs from October 2023 was reviewed and showed abnormal but relatively stable GFR of 30 creatinine of 1.9 and normal electrolytes. Hemoglobin is acceptable at 11.2 platelet count is also good No need of labs today 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) Chronic diastolic heart failure due to valvular disease (HCC) Continue torsemide 20 and spironolactone 100. Also potassium seems to be fine without any supplement Do not use metolazone She can easily have significantly higher dose of torsemide if needed. Follow Up: Return in about 6 months (around 07/28/2024) for Clinic Visit. | For: Clinic Visit Cali Brown MD documented in this encounter Nursing Notes * Dorothea Kidd LPN - 01/26/2024 10:39 AM EDT Patient identified by verbal name and date of . Return visit No recent inpatient hospital stays or ED visits Pt had bilateral cataract surgery 10/0510/20/23 Denies SOB or lower extremity edema Last labs 11/22/23 documented in this encounter Plan of Treatment Upcoming Encounters Date Type Department Care Team (Late st Contact Info) Description 09/14/2024 2:20 PM EST Office Visit Nephrology, [place] [address] [place] [address] [address] Cali Brown MD 200 [facility] [place] [address] Scheduled Procedures Name Priority Associated Diagnoses Date/Ti [...] Additional history exists CKD PHOS USE SMARTSET 75567 07/16/202406/26, 03/11/2023, 08/03/2022 CKD HGB USE SMARTSET 84679 11/21/202411/21, 07/16/2023, 07/16/2023, Additional history exists Diabetic [...] as of this encounter Visit Diagnoses Diagnosis CKD (chronic kidney disease) stage 4, GFR 15-29 ml/min (HCC)- Primary Chronic kidney disease, Stage IV (severe) 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) Other chronic nonalcoholic liver disease Chronic diastolic heart failure due to valvular disease (HCC) documented in this encounter Care Teams Radio Installer Relationship Specialty Start Date End Date Jonathan Rees III, MD 200 [facility] [place] [address] PCP - General 03/09/1996 documented as of this encounter
--- OUTSIDE RECORDS SUMMARY | 2024-07-03 03:08 | External Medical Summary | Summary of Care ---
Author Name Unknown Organization [facility] Address [address] [facility] [place] [address] Phone [phone] Care Team Providers Care Educational Program Assistant Name Role Phone Cabrera SCALES MD, Jonathan Potter Primary Care Provider [phone] Reason for Visit * Reason Onset Date Comments Medication Refill Status Check 01/13/2024 Encounter Details Date Type Department Care Team (Late st Contact Info) Description 01/13/2024 Refill Family Practice [facility] [address] [facility] [place] [address] Jonathan Rees III, MD [facility] [address] Allergies Active Allergy Reactions Criticality Noted Date [...] mouth at bedtime. 90 Tablet 3 3 Active Methyl Holbdkrvgq-Hyxo-Mlr thol 2-4-1 % External Patch 2 times a day. 3 Active OneTouch Delica Plus [id number] USE TWICE DAILY 200 Each 3 3 [...] 3 Active Multivitamin Adult Oral Tablet Take by mouth. Active Empagliflozin 10 MG Oral Tablet (Jardiance) Take 1 Tablet by mouth in the morning. 90 Tablet 3 4 Active traMADol HCl 50 MG Oral Tablet (Ultram)Indications :Chronic thoracic back pain, unspecified back pain laterality Take 1 Tablet by mouth every 6 hours as needed for Moderate Pain 30 Tablet 4 Active Pantoprazole Sodium 20 MG Oral Tablet Delayed Release (Protonix) Take 1 Tablet by mouth 2 times a day with morning and evening meals. 180 Tablet 1 4 Active Pantoprazole Sodium 20 MG Oral Tablet Delayed Release (Protonix) Take 1 Tablet by mouth 2 times a day with morning and evening meals. 180 Tablet 1 3 01/13/20 24 Discontinu ed(Refill) Hospital, Clinic, or Other Facility Administered Medication [...] mRNA, LNP-s, No Pre serve, 2-Dose Series ([employer]) 11/29/2020,11/08/2020 Covid-19, Mrna, Lnp-s, Pf, B ivalent, 30 Mcg, IM, 12 yrs and above ([employer]) 08/10/2022 H1N1 2009 Influenza, IM 11/04/2009 Hepatitis B, 20+ yrs 07/13/2013,06/08/2013 Pneumococcal Conjugate Vacci ne, 20-valent ([id number]) 02/15/2023 Pneumococcal Polysaccharide PPV23 (Pneumovax) 04/26/2009 Season [...] No 04/13/2023 Does the household have a gular source of income? (Household - for [...] encounter Miscellaneous Notes * Telephone Encounter - Neil Muñiz RPh - 01/14/2024 6:46 AM EDTSigned Prescriptions: Disp Refills Pantoprazole Sodium 20 MG Oral Tablet Linda*180 Ta*1 Sig: Take 1 Tablet by mouth 2 times a day with morning and evening meals.Authorizing Provider: MATIAS GORMAN AOrdering User: NEIL MUÑIZ * Telephone Encounter - Neil Muñiz RPh - 01/14/2024 6:46 AM EDTSigned Prescriptions: Disp Refills Pantoprazole Sodium 20 MG Oral Tablet Linda*180 Ta*1 Sig: Take 1 Tablet by mouth 2 times a day with morning and evening meals. Authorizing Provider: MATIAS GORMAN Ordering User: NEIL MUÑIZ * Telephone Encounter - Crista Jimenez [facility] - 01/13/2024 4:24 PM EDT Did you pend patient's preferred pharmacy and medication before forwarding?yes Pharmacy: [facility] Pending Prescriptions: Disp Refills Pantoprazole Sodium 20 MG Oral Tablet Del*180 Ta*1 Sig: Take 1 Tablet by mouth 2 times a day with morning and evening meals. Last Visit: 05/19/2023 (in office), Visit date not found (telemedicine) Next Visit: Visit date not found If no future appointments scheduled, and last appointment is greater than a year ago, please schedule patient for a follow-up appointment Last date the medication was ordered: 07/13/23 Is this request for a controlled substance?No Urine Drug Screen: Results for orders placed [...] EDT Office Visit [facility] [address] [place] [address] Cali Brown MD 200 [place] [address] Scheduled Procedures Name Priority Associated Diagnoses Date/Ti [...] Additional history exists CKD PHOS USE SMARTSET 56105 07/16/202406/26, 03/11/2023, 08/03/2022 CKD HGB USE SMARTSET 71433 11/21/202411/21, 07/16/2023, 07/16/2023, Additional history exists Diabetic [...] filedocumented as of this encounter Care Teams Educational Program Assistant Relationship Specialty Start Date End Date Jonathan Rees III, MD [address] [place] [address] PCP - General 03/09/1996 documented as of this encounter
--- OUTSIDE RECORDS SUMMARY | 2024-07-03 03:08 | External Medical Summary | Summary of Care ---
Author Name Unknown Organization [facility] Address [address] [facility] [place] [address] Phone [phone] Care Team Providers Care Life Enrichment Assistant Name Role Phone Cabrera SCALES MD, Jonathan Potter Primary Care Provider [phone] Reason for Visit * Reason Onset Date Comments Other 02/04/2024 Encounter Details Date Type Department Care Team (Late st Contact Info) Description 02/04/2024 Telephone Family Practice [facility] [place] [address] [facility] [address] [facility] [place] [address] [facility] III, MD [facility] [address] Other Allergies Active Allergy Reactions Criticality Noted Date Comments Metolazone 07/16/2023 Severe Electrolyte imbalance needing Hospital admission Morphine Sulfate Nausea/vomiting 04/26/2009 documented as of this encounter (statuses as of 02/04/2024) Medications Medication Sig Dispensed Refills Start Date [...] bedtime. 90 Tablet 3 03/08/2023 Active Methyl Qtwdluoyiy-Yyte-Wjjv hol 2-4-1 % External Patch 2 times a day. 02/25/2023 Active OneTouch Delica Plus [id number] USE TWICE DAILY 200 Each 3 04/19/2023 [...] stage 4 chronic kidney disease, unspecified whether care home insulin use (HCC) Inject 5 Units under [...] as of this encounter (statuses as of 02/04/2024) Active Problems Problem Noted Date Diagnosed Date [...] as of this encounter (statuses as of 02/04/2024) Resolved Problems Problem Noted Date Diagnosed Date [...] as of this encounter (statuses as of 02/04/2024) Immunizations Name Administration Dates Next Due COVID-19 mRNA, LNP-s, No Pre serve, 2-Dose Series ([employer]) 11/29/2020,11/08/2020 Covid-19, Mrna, Lnp-s, Pf, B ivalent, 30 Mcg, IM, 12 yrs and above (Pfizer) 08/10/2022 H1N1 2009 Influenza, IM 11/04/2009 Hepatitis B, 20+ yrs 07/13/2013,06/08/2013 Pneumococcal Conjugate Vacci ne, 20-valent ([id number]) 02/15/2023 Pneumococcal Polysaccharide PPV23 (Pneumovax) 04/26/2009 Season [...] encounter Miscellaneous Notes * Telephone Encounter - Erica Mcmanus PHARM Tech - 02/04/2024 4:06 PM EDT Karl from [facility] calling regarding Ozurdex from [employer] - transferred to provider's line. Thanks, Erica Mcmanus [employer] [facility] 02/04/2024,4:07 PM documented in this encounter Plan of Treatment Upcoming Encounters Date Type Department Care Team (Late st Contact Info) Description 09/14/2024 2:20 PM EST Office Visit [facility] [address] [place] [address] [address] Cali Bronw MD [address] [place] [address] [address] Scheduled Procedures Name Priority Associated Diagnoses Date/Ti [...] Additional history exists CKD PHOS USE SMARTSET 08119 07/16/202406/26, 03/11/2023, 08/03/2022 CKD HGB USE SMARTSET 37513 11/21/202411/21, 07/16/2023, 07/16/2023, Additional history exists Diabetic [...] filedocumented as of this encounter Care Teams Life Enrichment Assistant Relationship Specialty Start Date End Date Jonathan Rees III, MD [address] [place] [address] PCP - General 03/09/1996 documented as of this encounter
--- OUTSIDE RECORDS SUMMARY | 2024-07-03 03:08 | External Medical Summary | Summary of Care ---
Author Name Unknown Organization [facility] Address [address] [place] [address] Phone [phone] Care Team Providers Care Drug And Alcohol Counsellor Name Role Phone Cabrera SCALES MD, Jonathan Potter Primary Care Provider [phone] Reason for Visit * Reason Onset Date Comments Other 02/04/2024 Encounter Details Date Type Department Care Team (Late st Contact Info) Description 02/04/2024 Telephone Family Practice [facility] [place] [address] [place] [address] [facility] Rees III, MD [address] [facility] [address] Other Allergies Active Allergy Reactions Criticality Noted Date Comments Metolazone 07/16/2023 Severe Electrolyte imbalance needing Hospital admission Morphine Sulfate Nausea/vomiting 04/26/2009 documented as of this encounter (statuses as of 02/07/2024) Medications Medication Sig Dispensed Refills Start Date [...] bedtime. 90 Tablet 3 03/08/2023 Active Methyl Hmteifetkc-Jvnb-Jysv hol 2-4-1 % External Patch 2 times a day. 02/25/2023 Active OneTouch Delica Plus [id number] USE TWICE DAILY 200 Each 3 04/19/2023 [...] stage 4 chronic kidney disease, unspecified whether senior living insulin use (HCC) Inject 5 Units under [...] as of this encounter (statuses as of 02/07/2024) Active Problems Problem Noted Date Diagnosed Date [...] as of this encounter (statuses as of 02/07/2024) Resolved Problems Problem Noted Date Diagnosed Date [...] as of this encounter (statuses as of 02/07/2024) Immunizations Name Administration Dates Next Due COVID-19 mRNA, LNP-s, No Pre serve, 2-Dose Series ([employer]) 11/29/2020,11/08/2020 Covid-19, Mrna, Lnp-s, Pf, B ivalent, 30 Mcg, IM, 12 yrs and above (Pfizer) 08/10/2022 H1N1 2009 Influenza, IM 11/04/2009 Hepatitis B, 20+ yrs 07/13/2013,06/08/2013 Pneumococcal Conjugate Vacci ne, 20-valent ([id number]) 02/15/2023 Pneumococcal Polysaccharide PPV23 (Pneumovax) 04/26/2009 Season [...] to nurse's line. Thank you, Tara Toure Knotter Hand [facility] 02/07/2024, 3:28 PM * Telephone Encounter - Erica Mcmanus braider operator - 02/04/2024 4:06 PM EDT Karl from [facility] calling regarding Ozurdex from [place] [place] - transferred to provider's line. Thanks, Erica Mcmanus Broadcast Operations Engineer III [facility] 02/04/2024,4:07 PM documented in this encounter Plan of Treatment Upcoming Encounters Date Type Department Care Team (Late st Contact Info) Description 09/14/2024 2:20 PM EST Office Visit Nephrology, [place] [address] [place], [place] [address] Cali Brown MD [address] [place] [address] Scheduled Procedures Name Priority Associated Diagnoses Date/Ti [...] Additional history exists CKD PHOS USE SMARTSET 67344 07/16/202406/26, 03/11/2023, 08/03/2022 CKD HGB USE SMARTSET 31848 11/21/202411/21, 07/16/2023, 07/16/2023, Additional history exists Diabetic [...] filedocumented as of this encounter Care Teams Drug And Alcohol Counsellor Relationship Specialty Start Date End Date Jonathan Rees III, MD [address] [place] [address] PCP - General 03/09/1996 documented as of this encounter
[2024-07-03] MEDS: DICLOFENAC SOD 1% GEL 100 GM TUBE EXT PRN (04:25)
[2024-07-03 06:11] LABS: Hematocrit (blood only) 26.2 % (37.0-47.0); Hemoglobin 8.7 g/dl (12.0-16.0); Mean Corpuscular Hemoglobin 30.6 pg (25.0-34.0); Mean Corpuscular Hgb Conc 33.2 g/dL (32.0-36.0); Mean Corpuscular Volume 92.3 fL (80.0-100.0); Platelet Count 111 K/uL (130-400); RDW Coefficient of Variation 14.2 % (11.5-14.5); RDW Standard Deviation 48.1 fL (36.4-46.3); Red Blood Count 2.84 M/uL (4.20-5.40); White Blood Count 4.59 K/ul (4.8-10.8)
[2024-07-03 06:27] LABS: BUN Creatinine Ratio 16.8 (10-20); Calcium 8.6 mg/dl (8.6-10.3); Creatinine Clr Calc Pharmacy 36.6 ml/min; Magnesium 1.7 mg/dl (1.7-2.4); Potassium 4.3 mmol/L (3.5-5.1)
--- NOTE | 2024-07-03 09:22 | Nephrology Consultation ---
Date of Consultation July 03, 2024 Assessment & Plan (1) BLAIRE (acute kidney injury): her baseline creat is about 2. On admission she had creat better than baseline because of Severe hemodilution. with the severe Fluid overload she had Creat was misleading. She is still massively edematous and needs to be diuresed. Diuresis has been average only with lasix 40 iv bid + aldactone 100 daily. urine was very bland so less likely to be other causes for BLAIRE. No Obstruction seen on US. will repeat UA again. needs daily CBC and CMP. (2) CKD (chronic kidney disease) stage 4, GFR 15-29 ml/min: CKD 3b/4 with fluctuating baseline creatinine ( usually about 2) with NAFLD cirrhosis. (3) Fluid overload: On admission she had creat better than baseline because of Severe hemodilution. with the severe Fluid overload she had Creat was misleading. She is still massively edematous and needs to be diuresed. Diuresis has been average only with lasix 40 iv bid + aldactone 100 daily. Fluid overload is driven by Liver and renal cause and not cardiac. However hepat ic/renal cause needs even higher dose for response. Stop lasix 40 iv and use lasix drip at 10 mg/hr. Also metolazone 5 mg x 1 dose today. Already got the Aldactone this AM but want to see labs tomorrow before we give more dose tomorrow. Plan time Spent 62 mins. History of Present Illness Reason for Consultation: BLAIRE on CKD with massive fluid overload. Attending Physician: aFbián Salinas MD History of Present Illness 64/F-with CKD 3b/4 with fluctuating baseline creatinine ( usually about 2) with NAFLD cirrhosis, HTN, HLD, history of saddle PE on eliquis, DM II, anemia and other medical problems listed below who presented with dyspnea on exertion/Worsening edema and 40 lbs wt gain. Patient had issues with insurance recently and was unable to fill medications. Has not taken any of her home meds last 2 weeks. Denies any fever, chills, headache. No chest pain, palpitations, nausea, vomiting, abdominal pain, dysuria, diarrhea or constipation. Progressively worsening lower extremity swelling. Since adx--Duplex done and neg for DVT. US abd shows moderate Ascites. BP has been high. Since adx getting iv lasix but not a massive diuresis--1100 ml on 07/01 and then 1850 ml yesterday Admission creat 1.5 and then 1.7 and now 2. ROS---massive edema and wt gain, SOB and extreme weakness. Physical Exam Physical Exam: General Appearance: sitting up in bed, pleasant, obese Neck: Soft non tender, Supple. NO JVD Respiratory: increased respiratory effort, bibasilar rales, scattered expiratory wheezes. No accessory muscle use Cardiovascular: regular rate, rhythm, normal peripheral pulses, 3+BLE edema. Vessels: difficult to assess JVD 2/2 habitus Abdomen/GI: normal bowel sounds, soft but distended, nontender, no hepatosplenomegaly Extremities/Musculoskeletal: 4+ edema b/l Skin: no rashes, normal color, warm/dry Allergies Allergy/AdvReac Type Severity Reaction Status Date / Time morphine AdvReac Intermediate Vomiting Verified 10/20/23 07:27 Home Medications Medication Instructions Recorded Confirmed Type albuterol sulfate 90 mcg/actuation 2 puff inhalation QID PRN 01/21/22 07/01/24 History aerosol inhaler wheezing/SOB apixaban 5 mg tablet (Eliquis) 5 mg PO Q12H #60 tabs 04/14/22 07/01/24 Rx docusate sodium 100 mg capsule 100 mg PO DAILY PRN Constipation 05/15/22 07/01/24 History (Colace) methyl salicylate 15 %-menthol 10 1 applic topical BID PRN Pain 02/25/23 07/01/24 History % topical cream rosuvastatin 5 mg tablet 5 mg PO QAM 02/25/23 07/01/24 History tramadol 50 mg tablet 50 mg PO Q6H PRN Pain 02/25/23 07/01/24 History ropinirole 0.25 mg tablet 0.25 mg PO HS #30 tabs 03/03/23 07/01/24 Rx pantoprazole 40 mg tablet,delayed 20 mg PO BID 03/17/23 07/01/24 History release empagliflozin 10 mg tablet 10 mg PO QAM 09/30/23 07/01/24 History (Jardiance) insulin aspart U-100 100 unit/mL 5 unit subcut BID 09/30/23 07/01/24 History (3 mL) subcutaneous pen (Novolog FlexPen U-100 Insulin aspart) insulin glargine 100 unit/mL (3 22 unit subcut QAM 09/30/23 07/01/24 History mL) subcutaneous pen (Lantus Solostar U-100 Insulin) multivitamin 1 tab PO QAM 09/30/23 07/01/24 History spironolactone 50 mg tablet 100 mg PO QAM 09/30/23 07/01/24 History (Aldactone) torsemide 20 mg tablet 20 mg PO QAM 09/30/23 07/01/24 History Patient History Medical History DM II (diabetes mellitus, type II), controlled Arthritis Anxiety Chronic obstructive pulmonary disease Hx of falling "has chronic vertebral fracture from previous falls"; no recent falls Chronic kidney disease pt unsure what stage; f/u dr. jiang, s Restless leg syndrome Hyperlipidemia GERD (gastroesophageal reflux disease) DVT (deep venous thrombosis) ~2021, unknown cause>"found it when they were doing testing on her kidneys and liver" Surgical History History of cataract surgery left History of abdominal paracentesis multiple; most recent 02/2023, [facility] History of esophagogastroduodenoscopy (EGD) History of colonoscopy History of breast biopsy left>benign Family History Mother Hypertension Father Hypertension COPD (chronic obstructive pulmonary disease) Social History Smoking Status: Never smoker Second Hand Exposure: Yes; Do You Dip or Chew Tobacco: No; Hx Alcohol Use: No Hx Substance Use: No Preferred Language: Tanzanian Communication Ability: Effective Director Supply Chain Required: No Beliefs That Will Affect Care: None marital status: Single Current Living Situation: Family Current Living Situation Comment: lives with mother Feels Safe at Home: Yes Assistive Devices: Denture - Lower and Glasses Results & Data Vital Signs (Past 12 Hours) Vital Signs Temp Pulse Pulse Resp BP Pulse Ox O2 Del Method 07/03/24 07:32 36.8 C 18 170/81 H 94 Room Air 07/03/24 03:15 36.8 C 63 18 120/78 95 Room Air 07/02/24 23:40 36.8 C 67 17 103/56 L 95 Room Air 07/02/24 23:00 70 Laboratory Results reviewed pre Admission as well as Inpt. CBC, renal panel, Duplex, Cxr, urine tests
--- NOTE | 2024-07-03 10:11 | Electrocardiogram Report ---
Test Reason : Blood Pressure : */* mmHG Vent. Rate : 88 BPM Atrial Rate : 88 BPM P-R Int : 170 ms QRS Dur : 68 ms QT Int : 364 ms P-R-T Axes : 30 81 30 degrees QTcB Int : 440 ms Normal sinus rhythm with sinus arrhythmia Low voltage QRS Abnormal ECG When compared with ECG of 10-Apr-2023 11:35, No significant change was found Confirmed by Jorge Warren ([id number]) on 07/03/2024 10:11:20 AM Referred By: NO PCP Confirmed By: Jorge Warren
--- NOTE | 2024-07-03 10:27 | Nuclear Medicine Report ---
NM pul perfusion CLINICAL HISTORY: eval for PE Technique: Perfusion imaging was performed in multiple projections after the intravenous injection of 5.2 mCi of Tc-99m labeled macroaggregated albumin (MAA). Comparison: None available at the time of this dictation. FINDINGS/IMPRESSION: Homogeneous perfusion was seen bilaterally. Low probability of pulmonary emboli sm. ACT 112: Negative or not required by law. Electronically signed by: Mihai Motley M.D. 07/03/2024 10:18 AM
[2024-07-03] MEDS: metOLazone 5 MG TABLET PO ONE (10:50)
--- NOTE | 2024-07-03 11:49 | Hospitalist Progress Note ---
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 Volume overload Significant weight gain, 42 lbs since March per chart review Ran out of all medications, including torsemide and spironolactone 10 days ago due to insurance/cost issues BNP 185, clinically overloaded Given 40mg IV lasix in ED Continue 40mg IV lasix BID [place] in place for strict I&Os, daily weights No h/o CHF, 2D echo ordered to eval cardiac function Considering nephro involvement based on diuresis Echo of the heart showedthe left ventricular cavity is small, there is moderate concentric LVH, LV wall motion is normal with EF 60 to 65%, grade 1 diastolic dysfunction, aortic valve sclerosis moderate without significant stenosis, the mitral valve leaflets are mildly thickened there is no stenosis or insufficiency, there is trace tricuspid regurgitation and Doppler findings do not suggest pulmonary hypertension. Clinically a lot better with profuse diuresis with current doses of Lasix Creatinine is slightly worse and will get nephrology evaluation tomorrow Ultrasound of the abdomen did not show significant amount of ascites Her legs are a little better and will continue with the current doses of diuretics Not enough diuresis as of today with only about 1.8 L negative balance so far Will involve electric motor repairer and Lasix drip has been started from today Monitor intake and output and also renal function and electrolytes # Possible acute diastolic CHF and contributing fluid overload Echo of the heart did show grade on diastolic dysfunction without any other significant findings Has been started with intravenous Lasix drip by the electric motor repairer today History of saddle PE on chcf anticoagulation No eliquis for 10 days VSS, O2 saturation 98% on room air BLE duplex without evidence of DVT Unable to order CT PE now due to renal function, will proceed with VQ scan Eliquis resumed Awaiting VQ scan tomorrow-VQ scan documented as low probability of pulmonary embolism Will continue Eliquis as before NAFLD cirrhosis Has not taken diuretics for 1+ week No confusion, moderate ascites on abdominal ultrasound Diuresis as above Will need to have GI follow-up as an outpatient HTN Resumed diuresis as above Not on other antihypertensives per home meds PRN labetalol for SBP >180 Blood pressure is on the lower side at 109/70 HLD Resumed statin DM II A1c 5.9 in 2022, repeat in AM - hemoglobin A1c is 6.8 Hold home agents Basal bolus insulin while inpatient regulatory and compliance technician consult BSG AC HS CKD III Cr 1.45 today (baseline ~high 1s-2) Monitor BMP DVT Ppx: Eliquis Code status: FULL PCP: Cabrera Dispo: Admitted to PCU Will get PT and OT evaluation before discharge acute care for Admission and Anticipated Discharge Date Admission Date: July 01, 2024 Subjective 07/02/2024 The patient was seen and examined in telemetry unit She has been feeling much better and is out of bed on a chair Denies any chest pain and/or palpitation Did have some nausea but no vomiting and no abdominal pain 07/03/2024 The patient was seen and examined in telemetry unit She has been feeling little better and has not had enough diuresis yet Denies any other significant symptoms Review of Systems Review of Systems: All systems reviewed and are unremarkable except as noted below Physical Exam Physical Exam: Sitting on a chair without any acute distress Constitutional: well developed, well nourished, + ill appearing and + obese Eyes: PERRL, conjunctivae normal, anicteric sclerae ENMT: external ear and nose normal, oropharynx normal Neck: trachea midline, no thyromegaly Respiratory: no respiratory distress Auscultation: no crackles Cardiovascular: Rate/Rhythm: regular rate and regular rhythm; not tachycardic Heart Sounds: normal S1 and normal S2; no murmur Extremities: + edema ( 1- 2+ edema bilaterally. improved from yesterday) Gastrointestinal (Abdomen): Inspection/Auscultation: + abdomen distended and normal bowel sounds Percussion/Palpation: abdomen soft; abdomen nontender Musculoskeletal: No acute arthritis involving any of the joints Neurologic: normal touch/pain/proprioception and moves all extremities; no focal motor deficits Psychiatric: A+Ox3, euthymic affect Lymphatic: no cervical or axillary lymphadenopathy Results & Data Results & Data Vital Signs (Past 12 Hours) Vital Signs Temp Pulse Resp BP Pulse Ox O2 Del Method 07/03/24 11:21 36.7 C 64 19 109/70 95 Room Air 07/03/24 07:32 36.8 C 18 170/81 H 94 Room Air 07/03/24 03:15 36.8 C 63 18 120/78 95 Room Air Laboratory Results Short CBC 07/03/24 Range/Units 05:30 WBC 4.59 L (4.8-10.8) K/ul Hgb 8.7 L (12.0-16.0) g/dl Hct 26.2 L (37.0-47.0) % Plt Count 111 L (130-400) K/uL BMP 07/03/24 05:30 Sodium 139 Potassium 4.3 Chloride 107 Carbon Dioxide 26 BUN 34 H Creatinine 2.02 H D Glucose 151 H Calcium 8.6 Medications Administered Current Inpatient Medications Acetaminophen (Acetaminophen 325 Mg Tab) 650 mg PO Q4H PRN PRN Reason: Pain or Fever Stop: 07/31/24 17:14 Albuterol (Albuterol Hfa 8 Gm Inhaler) 2 puffs INH QID PRN PRN Reason: wheezing/SOB Stop: 07/31/24 17:14 Apixaban (Apixaban 5 Mg Tablet) 5 mg PO Q12H LETI Stop: 07/31/24 17:59 Last Admin: 07/03/24 05:33 Dose: 5 mg Dextrose (Dextrose 50% 50 Ml Syringe) 25 - 50 ml IV UD PRN; Protocol PRN Reason: Hypoglycemia Protocol Stop: 07/31/24 16:13 Diclofenac Sodium (Diclofenac Sod 1% Gel 100 Gm Tube) 2 gm EXT BID PRN; Protocol PRN Reason: knee pain Stop: 08/02/24 08:59 Last Admin: 07/03/24 04:25 Dose: 2 gm Docusate Sodium (Docusate Sodium 100 Mg Cap) 100 mg PO DAILY PRN PRN Reason: Constipation Stop: 07/31/24 17:14 Glucagon (Glucagon For Inj 1 Mg Vial) 1 mg SQ UD PRN; Protocol PRN Reason: Hypoglycemia Protocol Stop: 07/31/24 16:13 Glucose (Glucose 40% Gel 15 Gm Tube) 15 - 30 gm PO UD PRN; Protocol PRN Reason: Hypoglycemia Protocol Stop: 07/31/24 16:13 Glucose (Glucose 10 Tab/Tube) 4 - 8 tab PO UD PRN; Protocol PRN Reason: Hypoglycemia Protocol Stop: 07/31/24 16:13 Hydralazine HCl (Hydralazine Hcl 20 Mg/Ml Vial) 10 mg IV Q6H PRN PRN Reason: SBP >170 or DBP >105 Stop: 07/31/24 20:59 Furosemide 100 mg/ Dextrose 100 mls @ 10 mls/hr IV .Q10H PENDING SALE TO [facility] Stop: 08/02/24 09:59 Insulin Aspart (Insulin Aspart Per Unit Charge) 0 units SC ACHS [facility]ENDING [facility] TO [facility] Stop: 07/31/24 16:29 Last Admin: 07/03/24 08:10 Dose: 4 units Insulin Glargine (Lantus Per Unit Charge) 0 - 10 units SQ BID [facility]END[facility] TO [facility] Stop: 07/31/24 20:59 Last Admin: 07/03/24 09:39 Dose: 5 units Metoprolol Tartrate (Metoprolol Tartrate 25 Mg Tab) 25 mg PO BID [facility] Stop: 07/31/24 20:59 Last Admin: 07/03/24 09:41 Dose: 25 mg Miscellaneous (Carbohydrates For Hypoglycemia ) 15 - 30 gm PO UD PRN PRN Reason: Hypoglycemia Protocol Stop: 07/31/24 16:13 Multivitamins (Multivitamin Tab) 1 tab PO [facility] Stop: 08/01/24 08:59 Last Admin: 07/03/24 09:41 Dose: 1 tab Ondansetron HCl (Ondansetron Inj 2 Mg/Ml 2 Ml Vial) 4 mg IV Q6H PRN PRN Reason: Nausea Stop: 07/31/24 17:14 Last Admin: 07/03/24 08:10 Dose: 4 mg Pantoprazole Sodium (Pantoprazole 40 Mg Tab) 40 mg PO BID [facility] Stop: 07/31/24 20:59 Last Admin: 07/03/24 09:41 Dose: 40 mg Polyethylene Glycol (Polyethylene (Miralax) 17 Gm Pack) 17 gm PO DAILY PRN PRN Reason: Constipation Stop: 07/31/24 17:14 Ropinirole HCl (Ropinirole Hcl 0.25 Mg Tablet) 0.25 mg PO HS [facility] Stop: 07/31/24 20:59 Last Admin: 07/02/24 20:00 Dose: 0.25 mg Rosuvastatin Calcium (Rosuvastatin Calcium 5 Mg Tab) 5 mg PO QAM [facility] Stop: 08/01/24 08:59 Last Admin: 07/03/24 09:41 Dose: 5 mg Spironolactone (Spironolactone 100 Mg Tab) 100 mg PO QAM [facility] Stop: 08/01/24 08:59 Last Admin: 07/02/24 08:41 Dose: 100 mg Tramadol HCl (Tramadol Hcl 50 Mg Tablet) 50 mg PO Q6H PRN PRN Reason: Pain Stop: 07/31/24 17:14 Trolamine Salicylate (Trolamine Salicylate 10% Crm 255 Appln/85 Gm Tube) 1 appln EXT BID PRN PRN Reason: Pain Stop: 07/31/24 17:44
[2024-07-03] MEDS: FUROSEMIDE 100 MG in DEXTROSE 5% 90 ML IV SCH (11:55)
[2024-07-03 15:31] LABS: Appearance Urine Clear (Clear); Bilirubin Urine Negative (Negative); Blood Urine 3+ (Negative); Color Urine Yellow; Glucose Urine UA Negative (Negative); Ketones Urine Negative (Negative); Leukocyte Esterase Urine Trace (Negative); Nitrite Urine Negative (Negative); Protein Urine Negative (Negative); Urobilinogen Urine Negative (Negative); pH Urine 5.5 (4.5-7.5)
[2024-07-03 15:43] LABS: RBC Urine >20 /hpf (0-2)
[2024-07-03 15:44] LABS: Bacteria Urine 1+ (None Seen)
[2024-07-04 06:56] LABS: BUN Creatinine Ratio 18.7 (10-20); Calcium 8.7 mg/dl (8.6-10.3); Creatinine Clr Calc Pharmacy 33.3 ml/min; Magnesium 1.6 mg/dl (1.7-2.4)
--- NOTE | 2024-07-04 10:10 | Nephrology Progress Note ---
Date of Service July 04, 2024 Assessment & Plan Admission and Anticipated Discharge Date Admission Date: July 01, 2024 Subjective Assessment & Plan (1) BLAIRE (acute kidney injury): her baseline creat is about 2. On admission she had creat better than baseline because of Severe hemodilution. with the severe Fluid overload she had Creat was misleading. She is still massively edematous and needs to be diuresed. Diuresis was average only with lasix 40 iv bid + aldactone 100 daily. urine was very bland so less likely to be other causes for BLAIRE. No Obstruction seen on US. Big increase in urine output to 4100 ml yesterday. UA is quite active--So it is possible she had superimposed ATN causing worsening renal function and fluid overload. needs daily CBC and CMP. (2) CKD (chronic kidney disease) stage 4, GFR 15-29 ml/min: CKD 3b/4 with fluctuating baseline creatinine ( usually about 2) with NAFLD cirrhosis. (3) Fluid overload: On admission she had creat better than baseline because of Severe hemodilution. with the severe Fluid overload she had Creat was misleading. She is still massively edematous and needs to be diuresed. Diuresis has been average only with lasix 40 iv bid + aldactone 100 daily. Fluid overload is driven by Liver and renal cause and not cardiac. However hepatic/renal cause needs even higher dose for response. Creat has been rising for days now even before high dose lasix. expect further rise in creatinine will continue lasix drip at 10 mg/hr. Also metolazone 5 mg x 1 dose today again Hold off on Aldactone for today. Also give kcl 20 tid to cover for lasix. mag also low so give mag iv x 2 doses Check CMP, CBC and mag daily. S--no new issues. still has massive edema and made 4100 ml urine yesterday Physical Exam Physical Exam: General Appearance: sitting up in bed, pleasant, obese Neck: Soft non tender, Supple. NO JVD Respiratory: increased respiratory effort, bibasilar rales, scattered expiratory wheezes. No accessory muscle use Cardiovascular: regular rate, rhythm, normal peripheral pulses, 3+BLE edema. Vessels: difficult to assess JVD 2/2 habitus Abdomen/GI: normal bowel sounds, soft but distended, nontender, no hepatosplenomegaly Extremities/Musculoskeletal: 4+ edema b/l Skin: no rashes, normal color, warm/dry Results & Data Vital Signs (Past 12 Hours) Vital Signs Temp Pulse Resp BP Pulse Ox O2 Del Method 07/04/24 08:00 Room Air 07/04/24 07:26 36.6 C 64 17 135/63 96 Room Air 07/04/24 04:05 36.8 C 66 16 129/65 94 Room Air 07/04/24 00:15 37.0 C 67 16 137/79 94 Room Air 07/03/24 22:46 Room Air
[2024-07-04] MEDS: MAGNESIUM SULFATE / D5W 1 GM/100 ML BAG IV SCH (10:36)
[2024-07-04] MEDS: metOLazone 5 MG TABLET PO ONE (10:37)
--- NOTE | 2024-07-04 13:28 | Hospitalist Progress Note ---
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 Volume overload Significant weight gain, 42 lbs since March per chart review Ran out of all medications, including torsemide and spironolactone 10 days ago due to insurance/cost issues BNP 185, clinically overloaded Given 40mg IV lasix in ED Continue 40mg IV lasix BID [place] in place for strict I&Os, daily weights No h/o CHF, 2D echo ordered to eval cardiac function Considering nephro involvement based on diuresis Echo of the heart showedthe left ventricular cavity is small, there is moderate concentric LVH, LV wall motion is normal with EF 60 to 65%, grade 1 diastolic dysfunction, aortic valve sclerosis moderate without significant stenosis, the mitral valve leaflets are mildly thickened there is no stenosis or insufficiency, there is trace tricuspid regurgitation and Doppler findings do not suggest pulmonary hypertension. Clinically a lot better with profuse diuresis with current doses of Lasix Creatinine is slightly worse and will get nephrology evaluation tomorrow Ultrasound of the abdomen did not show significant amount of ascites Her legs are a little better and will continue with the current doses of diuretics Not enough diuresis as of today with only about 1.8 L negative balance so far Will involve collar setter overlock and Lasix drip has been started from today Monitor intake and output and also renal function and electrolytes She has been diuresing enough with intravenous Lasix drip and metolazone orally Total negative balance of 5 mL so far and will continue current Lasix drip Monitor CBC and CMP # Possible acute diastolic CHF and contributing fluid overload Echo of the heart did show grade on diastolic dysfunction without any other significant findings Has been started with intravenous Lasix drip by the collar setter overlock today She has been feeling a lot better today History of saddle PE on snf anticoagulation No eliquis for 10 days VSS, O2 saturation 98% on room air BLE duplex without evidence of DVT Unable to order CT PE now due to renal function, will proceed with VQ scan Eliquis resumed Awaiting VQ scan tomorrow-VQ scan documented as low probability of pulmonary embolism Will continue Eliquis as before NAFLD cirrhosis Has not taken diuretics for 1+ week No confusion, moderate ascites on abdominal ultrasound Diuresis as above Will need to have GI follow-up as an outpatient diuretics management as per collar setter overlock HTN Resumed diuresis as above Not on other antihypertensives per home meds PRN labetalol for SBP >180 Blood pressure is on the lower side at 109/70 HLD Resumed statin DM II A1c 5.9 in 2022, repeat in AM - hemoglobin A1c is 6.8 Hold home agents Basal bolus insulin while inpatient 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 protective 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 consult BSG AC HS CKD III Cr 1.45 today (baseline ~high 1s-2) Monitor BMP DVT Ppx: Eliquis Code status: FULL PCP: Cabrera Dispo: Admitted to PCU Will get PT and OT evaluation before discharge acute care for Admission and Anticipated Discharge Date Admission Date: July 01, 2024 Subjective 07/02/2024 The patient was seen and examined in telemetry unit She has been feeling much better and is out of bed on a chair Denies any chest pain and/or palpitation Did have some nausea but no vomiting and no abdominal pain 07/03/2024 The patient was seen and examined in telemetry unit She has been feeling little better and has not had enough diuresis yet Denies any other significant symptoms 07/04/2024 The patient was seen and examined in telemetry unit She has been feeling a little better and is out of bed on a chair Has been diuresing enough and the swelling of the legs are down Review of Systems Review of Systems: All systems reviewed and are unremarkable except as noted below Physical Exam Physical Exam: Sitting on a chair without any acute distress Constitutional: well developed, well nourished, + ill appearing and + obese Eyes: PERRL, conjunctivae normal, anicteric sclerae ENMT: external ear and nose normal, oropharynx normal Neck: trachea midline, no thyromegaly Respiratory: no respiratory distress Auscultation: no crackles Cardiovascular: Rate/Rhythm: regular rate and regular rhythm; not tachycardic Heart Sounds: normal S1 and normal S2; no murmur Extremities: + edema ( 1- 2+ edema bilaterally. improved from yesterday) Gastrointestinal (Abdomen): Inspection/Auscultation: + abdomen distended and normal bowel sounds Percussion/Palpation: abdomen soft; abdomen nontender Neurologic: normal touch/pain/proprioception and moves all extremities; no foc al motor deficits Psychiatric: A+Ox3, euthymic affect Lymphatic: no cervical or axillary lymphadenopathy Results & Data Results & Data Vital Signs (Past 12 Hours) Vital Signs Temp Pulse Resp BP Pulse Ox O2 Del Method 07/04/24 11:19 36.6 C 60 18 129/75 98 Room Air 07/04/24 08:00 Room Air 07/04/24 07:26 36.6 C 64 17 135/63 96 Room Air 07/04/24 04:05 36.8 C 66 16 129/65 94 Room Air Laboratory Results [facility] 07/04/24 05:40 Sodium 138 Potassium 4.0 Chloride 103 Carbon Dioxide 28 BUN 43 H Creatinine 2.30 H Glucose 133 H Calcium 8.7 Urine 07/03/24 Range/Units 15:15 Urine Color Yellow Urine Appearance Clear (Clear) Urine pH 5.5 (4.5-7.5) Ur Specific [place] 1.010 (1.000-1.030) Urine Protein Negative (Negative) Urine Glucose (UA) Negative (Negative) Medications Administered Current Inpatient Medications Acetaminophen (Acetaminophen 325 Mg Tab) 650 mg PO Q4H PRN PRN Reason: Pain or Fever Stop: 07/31/24 17:14 Albuterol (Albuterol Hfa 8 Gm Inhaler) 2 puffs INH QID PRN PRN Reason: wheezing/SOB Stop: 07/31/24 17:14 Apixaban (Apixaban 5 Mg Tablet) 5 mg PO Q12H LETI Stop: 07/31/24 17:59 Last Admin: 07/04/24 05:54 Dose: 5 mg Dextrose (Dextrose 50% 50 Ml Syringe) 25 - 50 ml IV UD PRN; Protocol PRN Reason: Hypoglycemia Protocol Stop: 07/31/24 16:13 Diclofenac Sodium (Diclofenac Sod 1% Gel 100 Gm Tube) 2 gm EXT BID PRN; P rotocol PRN Reason: knee pain Stop: 08/02/24 08:59 Last Admin: 07/03/24 04:25 Dose: 2 gm Docusate Sodium (Docusate Sodium 100 Mg Cap) 100 mg PO DAILY PRN PRN Reason: Constipation Stop: 07/31/24 17:14 Glucagon (Glucagon For Inj 1 Mg Vial) 1 mg SQ UD PRN; Protocol PRN Reason: Hypoglycemia Protocol Stop: 07/31/24 16:13 Glucose (Glucose 40% Gel 15 Gm Tube) 15 - 30 gm PO UD PRN; Protocol PRN Reason: Hypoglycemia Protocol Stop: 07/31/24 16:13 Glucose (Glucose 10 Tab/Tube) 4 - 8 tab PO UD PRN; Protocol PRN Reason: Hypoglycemia Protocol Stop: 07/31/24 16:13 Hydralazine HCl (Hydralazine Hcl 20 Mg/Ml Vial) 10 mg IV Q6H PRN PRN Reason: SBP >170 or DBP >105 Stop: 07/31/24 20:59 Furosemide 100 mg/ Dextrose 100 mls @ 10 mls/hr IV .Q10H [facility] Stop: 08/02/24 09:59 Last Admin: 07/04/24 05:54 Dose: 10 mg/hr, 10 mls/hr Magnesium Sulfate/Dextrose (Magnesium Sulfate / D5w) 1 gm in 100 mls @ 50 mls/hr IV Q2H [facility] Stop: 07/04/24 14:14 Last Admin: 07/04/24 12:37 Dose: 50 mls/hr Insulin Aspart (Insulin Aspart Per Unit Charge) 0 units SC ACHS [facility] Stop: 07/31/24 16:29 Last Admin: 07/04/24 11:56 Dose: 9 units Insulin Glargine (Lantus Per Unit Charge) 0 - 10 units SQ BID [facility] Stop: 07/31/24 20:59 Last Admin: 07/04/24 08:17 Dose: 5 units Metoprolol Tartrate (Metoprolol Tartrate 25 Mg Tab) 25 mg PO BID [facility] Stop: 07/31/24 20:59 Last Admin: 07/04/24 08:17 Dose: 25 mg Miscellaneous (Carbohydrates For Hypoglycemia ) 15 - 30 gm PO UD PRN PRN Reason: Hypoglycemia Protocol Stop: 07/31/24 16:13 Multivitamins (Multivitamin Tab) 1 tab PO QAM [facility] Stop: 08/01/24 08:59 Last Admin: 07/04/24 08:17 Dose: 1 tab Ondansetron HCl (Ondansetron Inj 2 Mg/Ml 2 Ml Vial) 4 mg IV Q6H PRN PRN Reason: Nausea Stop: 07/31/24 17:14 Last Admin: 07/03/24 08:10 Dose: 4 mg Pantoprazole Sodium (Pantoprazole 40 Mg Tab) 40 mg PO BID [facility] Stop: 07/31/24 20:59 Last Admin: 07/04/24 08:17 Dose: 40 mg Polyethylene Glycol (Polyethylene (Miralax) 17 Gm Pack) 17 gm PO DAILY PRN PRN Reason: Constipation Stop: 07/31/24 17:14 Potassium Chloride (Potassium Chloride 20 Meq/15 Ml Udc) 20 meq PO TID [facility] Stop: 08/03/24 13:59 Ropinirole HCl (Ropinirole Hcl 0.25 Mg Tablet) 0.25 mg PO HS [facility] Stop: 07/31/24 20:59 Last Admin: 07/03/24 21:10 Dose: 0.25 mg Rosuvastatin Calcium (Rosuvastatin Calcium 5 Mg Tab) 5 mg PO QAM [facility] Stop: 08/01/24 08:59 Last Admin: 07/04/24 08:17 Dose: 5 mg Spironolactone (Spironolactone 100 Mg Tab) 100 mg PO QAM [facility] Stop: 08/01/24 08:59 Last Admin: 07/02/24 08:41 Dose: 100 mg Tramadol HCl (Tramadol Hcl 50 Mg Tablet) 50 mg PO Q6H PRN PRN Reason: Pain Stop: 07/31/24 17:14 Trolamine Salicylate (Trolamine Salicylate 10% Crm 255 Appln/85 Gm Tube) 1 appln EXT BID PRN PRN Reason: Pain Stop: 07/31/24 17:44
[2024-07-04] MEDS: POTASSIUM CHLORIDE 20 MEQ/15 ML UDC PO SCH (14:08)
[2024-07-05 06:58] LABS: Basophils # (auto) 0.05 K/uL (0.00-0.20); Basophils % (auto) 1.1 %; Eosinophils % (auto) 2.1 %; Hematocrit (blood only) 26.8 % (37.0-47.0); Hemoglobin 9.2 g/dl (12.0-16.0); Immature Granulocytes # (auto) 0.01 K/uL (0.01-0.20); Immature Granulocytes % (auto) 0.2 %; Lymphocytes # (auto) 1.02 K/uL (1.20-3.40); Lymphocytes % (auto) 21.7 %; Mean Corpuscular Hemoglobin 30.9 pg (25.0-34.0); Mean Corpuscular Hgb Conc 34.3 g/dL (32.0-36.0); Mean Corpuscular Volume 89.9 fL (80.0-100.0); Mean Platelet Volume 10.4 fL (9.4-12.4); Monocytes # (auto) 0.36 K/uL (0.11-0.59); Monocytes % (auto) 7.7 %; Neutrophils # (auto) 3.15 K/uL (1.40-6.50); Neutrophils % (auto) 67.2 %; Platelet Count 129 K/uL (130-400); RDW Coefficient of Variation 13.5 % (11.5-14.5); RDW Standard Deviation 44.4 fL (36.4-46.3); Red Blood Count 2.98 M/uL (4.20-5.40); White Blood Count 4.69 K/ul (4.8-10.8)
[2024-07-05 07:27] LABS: Albumin Level 3.3 gm/dl (3.4-5.0); BUN Creatinine Ratio 21.1 (10-20); Bilirubin,Total 0.6 mg/dl (0.2-1.0); Calcium 9.1 mg/dl (8.6-10.3); Creatinine Clr Calc Pharmacy 31.1 ml/min; Globulin 3.3 gm/dl (2.5-4.0); Total Protein 6.6 gm/dl (6.0-8.3)
--- NOTE | 2024-07-05 09:27 | Nephrology Progress Note ---
Date of Service July 05, 2024 Assessment & Plan Admission and Anticipated Discharge Date Admission Date: July 01, 2024 Subjective Assessment & Plan (1) BLAIRE (acute kidney injury): her baseline creat is about 2. On admission she had creat better than baseline because of Severe hemodilution. with the severe Fluid overload she had Creat was misleading. She is still massively edematous and needs to be diuresed. Diuresis was average only with lasix 40 iv bid + aldactone 100 daily. urine was very bland so less likely to be other causes for BLAIRE. No Obstruction seen on US. Big increase in urine output to 6100 ml yesterday. UA is quite active--So it is possible she had superimposed ATN causing worsening renal function and fluid overload. needs daily CBC and CMP. (2) CKD (chronic kidney disease) stage 4, GFR 15-29 ml/min: CKD 3b/4 with fluctuating baseline creatinine ( usually about 2) with NAFLD cirrhosis. (3) Fluid overload: On admission she had creat better than baseline because of Severe hemodilution. with the severe Fluid overload she had Creat was misleading. She is still massively edematous and needs to be diuresed. Diuresis has been average only with lasix 40 iv bid + aldactone 100 daily. Fluid overload is driven by Liver and renal cause and not cardiac. However hepatic/renal cause needs even higher dose for response. Creat has been rising for days now even before high dose lasix. actually creat about same today as yesterday despite massive diuresis of 6 liters!!! will continue lasix drip at 10 mg/hr. Also metolazone 5 mg x 1 dose today again Hold off on Aldactone for today. Conitnue kcl 20 tid to cover for lasix. Check daily mag. Likely low today so give 2 gm iv. weight going down a lot and she is happy Check CMP, CBC and mag daily. S--no new issues. still has massive edema and made 6100 ml urine yesterday. weight going down a lot and she is happy Physical Exam Physical Exam: General Appearance: sitting up in bed, pleasant, obese Neck: Soft non tender, Supple. NO JVD Respiratory: increased respiratory effort, bibasilar rales, scattered expiratory wheezes. No accessory muscle use Cardiovascular: regular rate, rhythm, normal peripheral pulses, 3+BLE edema. Vessels: difficult to assess JVD 2/2 habitus Abdomen/GI: normal bowel sounds, soft but distended, nontender, no hepatos plenomegaly Extremities/Musculoskeletal: 4+ edema b/l Skin: no rashes, normal color, warm/dry Results & Data Vital Signs (Past 12 Hours) Vital Signs Temp Pulse Resp BP Pulse Ox O2 Del Method 07/05/24 07:16 36.7 C 66 18 144/77 H 95 Room Air 07/05/24 02:53 36.6 C 60 18 119/73 97 Room Air 07/04/24 22:45 36.7 C 69 18 110/69 95 Room Air 07/04/24 21:52 Room Air
[2024-07-05] MEDS: metOLazone 5 MG TABLET PO ONE (09:56)
[2024-07-05] MEDS: MAGNESIUM SULFATE / D5W 1 GM/100 ML BAG IV SCH (09:57)
--- NOTE | 2024-07-05 14:25 | Hospitalist Progress Note ---
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 She is being managed for the following: Volume overload, driven by liver and renal cause; not cardiac cause. Acute kidney injury over CKD stage III Patient presented with significant weight gain, 42 pounds since March per chart review. Admitting CXR w/ no congestion and US abd w/ moderate ascites. Patient ran out of all medications, including torsemide and Aldactone 10 days ago INTEGRATION CONSULTANT due to insurance/cost issues. Patient noted to be volume overloaded at presentation. 07/02/2024 echo with EF of 60 to 65%, grade 1 diastolic dysfunction noted. Patient received IV diuresis with elevation of creatinine resulting into acute kidney injury over CKD stage III. Nephrology currently managing, currently patient on IV lasix drip. making good urine output. Follow labs in AM. Monitor and replete electrolytes. Other chronic medical conditions: Continue with/resume home meds as and when able. Saddle PE: On long-term anticoagulation, was off of Eliquis for 10 days INTEGRATION CONSULTANT. BLE Doppler and VQ scan negative for PE. Continue with Eliquis. NAFLD cirrhosis: US abdomen with moderate ascites, no confusion. Diuresis as above. Follow-up with GI as an outpatient. Hypertension: Fairly under control, continue with home medications as able. Hyperlipidemia: Continue home statin T2DM: Sliding scale insulin while in hospital, A1c 6.8 this admission. DVT Ppx: Eliquis Code status: FULL PCP: Cabrera Dispo: Admitted to PCU PT/OT, CM to assist w/ dc plan. Admission and Anticipated Discharge Date Admission Date: July 01, 2024 Subjective Patient was seen and examined at bedside. Patient was sitting up in chair, on room air, NAD, resting comfortably. Patient reports eating okay, moving bowels okay, denies any new acute medical issues since yesterday. Patient reports feeling better. Physical Exam Physical Exam: GENERAL: Alert and oriented x3. NAD, on RA. HEENT: No pallor, no icterus. Pupils equal, round and reactive to light. Oral mucosa moist. NECK: No JVD, no neck masses. HEART: S1 and S2 heard. Regular rate and rhythm. No murmur, no gallop. RESPIRATORY SYSTEM: Normal AP diameter. No accessory muscle use. No wheezing, no crackles. ABDOMEN: Soft, bowel sounds present, nontender, + distention. CENTRAL NERVOUS SYSTEM: No facial droop. Speech is clear. Obeys simple commands. Moves extremities. EXTREMITIES: 2-3+ ble edema, no erythema seen. UC w/ light yellow urine collection in bag. Results & Data Results & Data Vital Signs (Past 12 Hours) Vital Signs Temp Pulse Resp BP Pulse Ox O2 Del Method 07/05/24 11:22 36.5 C 63 19 137/72 97 Room Air 07/05/24 07:16 36.7 C 66 18 144/77 H 95 Room Air 07/05/24 02:53 36.6 C 60 18 119/73 97 Room Air
[2024-07-05] MEDS: DOCUSATE SODIUM 100 MG CAP PO PRN (20:27)
[2024-07-05] MEDS: traMADol HCL 50 MG TABLET PO PRN (20:27)
[2024-07-06 06:20] LABS: Hematocrit (blood only) 27.9 % (37.0-47.0); Hemoglobin 9.6 g/dl (12.0-16.0); Mean Corpuscular Hemoglobin 30.8 pg (25.0-34.0); Mean Corpuscular Hgb Conc 34.4 g/dL (32.0-36.0); Mean Corpuscular Volume 89.4 fL (80.0-100.0); Mean Platelet Volume 10.2 fL (9.4-12.4); Platelet Count 137 K/uL (130-400); RDW Coefficient of Variation 13.5 % (11.5-14.5); RDW Standard Deviation 44.1 fL (36.4-46.3); Red Blood Count 3.12 M/uL (4.20-5.40); White Blood Count 5.13 K/ul (4.8-10.8)
[2024-07-06 06:28] LABS: Calcium 9.2 mg/dl (8.6-10.3); Magnesium 2.3 mg/dl (1.7-2.4)
[2024-07-06 06:34] LABS: BUN Creatinine Ratio 22.2 (10-20); Creatinine Clr Calc Pharmacy 28.3 ml/min; Phosphorus 4.9 mg/dl (2.5-4.9)
--- NOTE | 2024-07-06 10:11 | Nephrology Progress Note ---
Date of Service July 06, 2024 Assessment & Plan Admission and Anticipated Discharge Date Admission Date: July 01, 2024 Subjective Assessment & Plan (1) BLAIRE (acute kidney injury): her baseline creat is about 2. On admission she had creat better than baseline because of Severe hemodilution. with the severe Fluid overload she had Creat was misleading. She is still massively edematous and needs to be diuresed. Diuresis was average only with lasix 40 iv bid + aldactone 100 daily. urine was very bland so less likely to be other causes for BLAIRE. No Obstruction seen on US. Good diuresis so far and has lost a lot of weight. but still has massive edema. Stop lasix drip and use lasix 80 iv q8hr. NO metolazone today. Hold off on Aldactone for today. UA is quite active--So it is possible she had superimposed ATN causing worsening renal function and fluid overload. needs daily CBC and CMP. (2) CKD (chronic kidney disease) stage 4, GFR 15-29 ml/min: CKD 3b/4 with fluctuating baseline creatinine ( usually about 2) with NAFLD cirrhosis. (3) Fluid overload: On admission she had creat better than baseline because of Severe hemodilution. with the severe Fluid overload she had Creat was misleading. She is still massively edematous and needs to be diuresed. Fluid overload is driven by Liver and renal cause and not cardiac. However hepatic/renal cause needs even higher dose for response. Creat has been rising for days now even before high dose lasix. creat slightly higher than yesterday---urine 3800 ml. wt keeps going down. a Stop lasix drip and use lasix 80 iv q8hr. NO metolazone today. Hold off on Aldactone for today. Continue kcl 20 tid to cover for lasix. Check daily mag. K is normal and mag is normal today so continue current supplement. weight going down a lot and she is happy Check CMP, CBC and mag daily. S--no new issues. still has massive edema and made 6100 ml urine yesterday. weight going down a lot and she is happy Physical Exam Physical Exam: General Appearance: sitting up in bed, pleasant, obese Neck: Soft non tender, Supple. NO JVD Respiratory: increased respiratory effort, bibasilar rales, scattered expiratory wheezes. No accessory muscle use Cardiovascular: regular rate, rhythm, normal peripheral pulses, 3+BLE edema. Vessels: difficult to assess JVD 2/2 habitus Abdomen/GI: normal bowel sounds, soft but distended, nontender, no hepatosplenomegaly Extremities/Musculoskeletal: 3+ edema b/l Skin: no rashes, normal color, warm/dry Results & Data Vital Signs (Past 12 Hours) Vital Signs Temp Pulse Resp BP Pulse Ox O2 Del Method 07/06/24 08:42 Room Air 07/06/24 06:48 36.7 C 61 18 110/71 96 Room Air 07/06/24 02:46 36.5 C 65 18 102/60 96 Room Air 07/05/24 22:39 36.5 C 67 18 106/60 96 Room Air
[2024-07-06] MEDS: FUROSEMIDE 40 MG/4 ML VIAL IV SCH (11:13)
[2024-07-06] MEDS: MICONAZOLE NITRATE POWDER 85 GM EXT SCH (11:13)
--- NOTE | 2024-07-06 12:55 | Hospitalist Progress Note ---
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 She is being managed for the following: Volume overload, driven by liver and renal cause; not cardiac cause. Acute kidney injury over CKD stage III Patient presented with significant weight gain, 42 pounds since March per chart review. Admitting CXR w/ no congestion and US abd w/ moderate ascites. Patient ran out of all medications, including torsemide and Aldactone 10 days ago DATA SYSTEMS MANAGER due to insurance/cost issues. Patient noted to be volume overloaded at presentation. 07/02/2024 echo with EF of 60 to 65%, grade 1 diastolic dysfunction noted. Patient received IV diuresis with elevation of creatinine resulting into acute kidney injury over CKD stage III. Nephrology currently managing, being diuresed, making good urine output. Follow labs in AM. Monitor and replete electrolytes. Other chronic medical conditions: Continue with/resume home meds as and when able. 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 BLE Doppler and VQ scan negative for PE. Continue with Eliquis. NAFLD cirrhosis: US abdomen with moderate ascites, no confusion. Diuresis as above. Follow-up with GI as an outpatient. Hypertension: Fairly under control, continue with home medications as able. Hyperlipidemia: Continue home statin T2DM: Sliding scale insulin while in hospital, A1c 6.8 this admission. DVT Ppx: Eliquis Code status: FULL PCP: Cabrera Dispo: Admitted to PCU PT/OT, CM to assist w/ dc plan. Admission and Anticipated Discharge Date Admission Date: July 01, 2024 Subjective Patient was seen and examined at bedside. Patient was sitting up in chair, on room air, NAD, resting comfortably. Patient reports eating okay, moving bowels okay, denies any new acute medical issues since yesterday. Patient reports feeling better. Physical Exam Physical Exam: GENERAL: Alert and oriented x3. NAD, on RA. HEENT: No pallor, no icterus. Pupils equal, round and reactive to light. Oral mucosa moist. NECK: No JVD, no neck masses. HEART: S1 and S2 heard. Regular rate and rhythm. No murmur, no gallop. RESPIRATORY SYSTEM: Normal AP diameter. No accessory muscle use. No wheezing, no crackles. ABDOMEN: Soft, bowel sounds present, nontender, + distention. CENTRAL NERVOUS SYSTEM: No facial droop. Speech is clear. Obeys simple commands. Moves extremities. EXTREMITIES: 2-3+ ble edema, no erythema seen. UC w/ light yellow urine collection in bag. Results & Data Results & Data Vital Signs (Past 12 Hours) Vital Signs Temp Pulse Resp BP Pulse Ox O2 Del Method 07/06/24 11:17 36.5 C 63 18 124/80 96 Room Air 07/06/24 08:42 Room Air 07/06/24 06:48 36.7 C 61 18 110/71 96 Room Air 07/06/24 02:46 36.5 C 65 18 102/60 96 Room Air
[2024-07-07 08:31] LABS: BUN Creatinine Ratio 25.7 (10-20); Calcium 9.2 mg/dl (8.6-10.3); Creatinine Clr Calc Pharmacy 28.5 ml/min; Magnesium 2.2 mg/dl (1.7-2.4); Potassium 3.4 mmol/L (3.5-5.1)
--- NOTE | 2024-07-07 08:58 | Nephrology Progress Note ---
Date of Service July 07, 2024 Assessment & Plan Admission and Anticipated Discharge Date Admission Date: July 01, 2024 Subjective Assessment & Plan (1) BLAIRE (acute kidney injury): her baseline creat is about 2. On admission she had creat better than baseline because of Severe hemodilution. with the severe Fluid overload she had Creat was misleading. She is still massively edematous and needs to be diuresed. Diuresis was average only with lasix 40 iv bid + aldactone 100 daily. urine was very bland so less likely to be other causes for BLAIRE. No Obstruction seen on US. Good diuresis so far and has lost a lot of weight. but still has massive edema. continue lasix 80 iv q8hr. NO metolazone today. Hold off on Aldactone for today. UA is quite active--So it is possible she had superimposed ATN causing worsening renal function and fluid overload. needs daily CBC and CMP. (2) CKD (chronic kidney disease) stage 4, GFR 15-29 ml/min: CKD 3b/4 with fluctuating baseline creatinine ( usually about 2) with NAFLD cirrhosis. (3) Fluid overload: On admission she had creat better than baseline because of Severe hemodilution. with the severe Fluid overload she had Creat was misleading. She is still massively edematous and needs to be diuresed. Fluid overload is driven by Liver and renal cause and not cardiac. However hepatic/renal cause needs even higher dose for response. Creat has been rising for days now even before high dose lasix. creat same as yesterday---urine 3500 ml. wt keeps going down. a use lasix 80 iv q8hr. NO metolazone today. Hold off on Aldactone for today--will resume once the aggressive diuresis phase is over. . Continue kcl 20 tid to cover for lasix. k still low at 3.4 so give extra 40 meq now. Check daily mag. weight going down a lot and she is happy. Given her insurance situation I want her to be in the best shape volume singh before discharging her home. Check CMP, CBC and mag daily. S--no new issues. still has massive edema and made 3500 ml urine yesterday. weight going down a lot and she is happy Physical Exam Physical Exam: General Appearance: sitting up in bed, pleasant, obese Neck: Soft non tender, Supple. NO JVD Respiratory: increased respiratory effort, bibasilar rales, scattered expiratory wheezes. No accessory muscle use Cardiovascular: regular rate, rhythm, normal peripheral pulses, 3+BLE edema. Vessels: difficult to assess JVD 2/2 habitus Abdomen/GI: normal bowel sounds, soft but distended, nontender, no hepatosplenomegaly Extremities/Musculoskeletal: 3+ edema b/l Skin: no rashes, normal color, warm/dry Results & Data Vital Signs (Past 12 Hours) Vital Signs Temp Pulse Pulse Resp BP Pulse Ox O2 Del Method 07/07/24 08:17 37.0 C 65 18 111/72 95 Room Air 07/07/24 02:13 36.6 C 64 16 115/69 96 Room Air 07/06/24 23:08 36.9 C 63 19 108/59 L 96 Room Air 07/06/24 22:00 68 07/06/24 21:09 69 105/61
[2024-07-07] MEDS: POTASSIUM CHLORIDE 20 MEQ/15 ML UDC PO STA (11:26)
--- NOTE | 2024-07-07 15:07 | Hospitalist Progress Note ---
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 She is being managed for the following: Volume overload, driven by liver and renal cause; not cardiac cause. Acute kidney injury over CKD stage III Patient presented with significant weight gain, 42 pounds since March per chart review. Admitting CXR w/ no congestion and US abd w/ moderate ascites. 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 Patient noted to be volume overloaded at presentation. 07/02/2024 echo with EF of 60 to 65%, grade 1 diastolic dysfunction noted. Patient received IV diuresis with elevation of creatinine resulting into acute kidney injury over CKD stage III. Nephrology currently managing, being diuresed, making good urine output. Follow labs in AM. Monitor and replete electrolytes. Other chronic medical conditions: Continue with/resume home meds as and when able. 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 BLE Doppler and VQ scan negative for PE. Continue with Eliquis. NAFLD cirrhosis: US abdomen with moderate ascites, no confusion. Diuresis as above. Follow-up with GI as an outpatient. Hypertension: Fairly under control, continue with home medications as able. Hyperlipidemia: Continue home statin T2DM: Sliding scale insulin while in hospital, A1c 6.8 this admission. DVT Ppx: Eliquis Code status: FULL PCP: Cabrera Dispo: Admitted to PCU PT/OT, CM to assist w/ dc plan. Admission and Anticipated Discharge Date Admission Date: July 01, 2024 Subjective Patient was seen and examined at bedside. Patient was sitting up in chair, on room air, NAD, resting comfortably. Patient reports eating okay, moving bowels okay, denies any new acute medical issues since yesterday. Patient reports feeling better. Physical Exam Physical Exam: GENERAL: Alert and oriented x3. NAD, on RA. HEENT: No pallor, no icterus. Pupils equal, round and reactive to light. Oral mucosa moist. NECK: No JVD, no neck masses. HEART: S1 and S2 heard. Regular rate and rhythm. No murmur, no gallop. RESPIRATORY SYSTEM: Normal AP diameter. No accessory muscle use. No wheezing, no crackles. ABDOMEN: Soft, bowel sounds present, nontender, + distention. CENTRAL NERVOUS SYSTEM: No facial droop. Speech is clear. Obeys simple commands. Moves extremities. EXTREMITIES: 2-3+ ble edema, no erythema seen. UC w/ light yellow urine collection in bag. Results & Data Results & Data Vital Signs (Past 12 Hours) Vital Signs Temp Pulse Resp BP BP Pulse Ox O2 Del Method 07/07/24 11:39 36.4 C L 59 L 18 128/79 98 Room Air 07/07/24 08:17 37.0 C 65 18 111/72 95 Room Air
[2024-07-08 06:28] LABS: BUN Creatinine Ratio 25.7 (10-20); Calcium 9.1 mg/dl (8.6-10.3); Creatinine Clr Calc Pharmacy 26.3 ml/min; Magnesium 2.1 mg/dl (1.7-2.4); Potassium 3.5 mmol/L (3.5-5.1)
[2024-07-08] MEDS: POLYETHYLENE (MIRALAX) 17 GM PACK PO PRN (08:39)
[2024-07-08] MEDS: bisacodyL 10 MG SUPP PR STA (11:14)
[2024-07-08] MEDS: LACTULOSE SYRUP 20 GM/30 ML UDC PO ONE (11:40)
--- NOTE | 2024-07-08 13:42 | Hospitalist Progress Note ---
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 She is being managed for the following: Volume overload, driven by liver and renal cause; not cardiac cause. Acute kidney injury over CKD stage III Patient presented with significant weight gain, 42 pounds since March per chart review. Admitting CXR w/ no congestion and US abd w/ moderate ascites. 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 Patient noted to be volume overloaded at presentation. 07/02/2024 echo with EF of 60 to 65%, grade 1 diastolic dysfunction noted. Patient received IV diuresis with elevation of creatinine resulting into acute kidney injury over CKD stage III. Nephrology currently managing, being diuresed, making good urine output. Follow labs in AM. Monitor and replete electrolytes. Other chronic medical conditions: Continue with/resume home meds as and when able. 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 BLE Doppler and VQ scan negative for PE. Continue with Eliquis. NAFLD cirrhosis: US abdomen with moderate ascites, no confusion. Diuresis as above. Follow-up with GI as an outpatient. Hypertension: Fairly under control, continue with home medications as able. Hyperlipidemia: Continue home statin T2DM: Sliding scale insulin while in hospital, A1c 6.8 this admission. DVT Ppx: Eliquis Code status: FULL PCP: Cabrera Dispo: Admitted to PCU PT/OT, CM to assist w/ dc plan. Admission and Anticipated Discharge Date Admission Date: July 01, 2024 Subjective Patient was seen and examined at bedside. Patient was sitting up in chair, on room air, NAD, resting comfortably. Patient reports eating okay, states last BM several days ago, will add one time dose of lactulose and pr dulcolax, c/w bowel regimen. denies any new acute medical issues since yesterday. Patient reports feeling better. Physical Exam Physical Exam: GENERAL: Alert and oriented x3. NAD, on RA. HEENT: No pallor, no icterus. Pupils equal, round and reactive to light. Oral mucosa moist. NECK: No JVD, no neck masses. HEART: S1 and S2 heard. Regular rate and rhythm. No murmur, no gallop. RESPIRATORY SYSTEM: Normal AP diameter. No accessory muscle use. No wheezing, no crackles. ABDOMEN: Soft, bowel sounds present, nontender, + distention. CENTRAL NERVOUS SYSTEM: No facial droop. Speech is clear. Obeys simple commands. Moves extremities. EXTREMITIES: 2-3+ ble edema, no erythema seen. UC w/ light yellow urine collection in bag. Results & Data Results & Data Vital Signs (Past 12 Hours) Vital Signs Temp Pulse Resp BP BP Pulse Ox O2 Del Method 07/08/24 11:31 36.7 C 58 L 19 118/72 98 Room Air 07/08/24 07:14 36.8 C 62 19 130/71 95 Room Air 07/08/24 03:30 36.7 C 72 18 120/72 95 Room Air 07/08/24 01:48 139/73
--- NOTE | 2024-07-08 19:02 | Nephrology Progress Note ---
Date of Service July 08, 2024 Assessment & Plan (1) BLAIRE (acute kidney injury): Plan: her baseline creat is about 2. creatinine climbing some w/ lasix gtt and other attempts at diuresis ( on intermittent IV since 07/06)> creat 2.7 today. On admission she had creat better than baseline because of Severe hemodilution. with the severe Fluid overload she had Creat was misleading. urine was very bland so less likely to be other causes for BLAIRE. No Obstruction seen on US. She is still quite edematous and needs to be diuresed. Diuresis has been average only with lasix 40 iv bid + aldactone 100 daily; on lasix 80 mg tid since 07/06 Wts >> 112.2 at 07/02 admission; peak at 118.7 on 07/04; 107 on 07/05 > 102.6 07/08 needs daily CBC and CMP. (2) CKD (chronic kidney disease) stage 4, GFR 15-29 ml/min: Plan: CKD 3b/4 with fluctuating baseline creatinine ( usually about 2) with NAFLD cirrhosis. (3) Fluid overload: Plan: On admission she had creat better than baseline because of Severe hemodilution. with the severe Fluid overload she had Creat was misleading. has been negative daily >2L; overall 17 L negative She is still massively edematous and needs to be diuresed. Diuresis has been average only with lasix 40 iv bid + aldactone 100 daily. Fluid overload is driven by Liver and renal cause and not cardiac. However hepatic/renal cause needs even higher dose for response. -will give another 5 mg metolazone -will increase K to 30 mEQ tid -cont to hold aldactone 100 mg daily -ordered 1.2 L FR >low threshold to start/go back to gtt if needed Admission and Anticipated Discharge Date Admission Date: July 01, 2024 Subjective no interval events clinically; feels edema improving some but still a ways to go. no sob. Review of Systems 2 Review of Systems: All systems reviewed & are unremarkable except as noted in Subjective Results & Data Vital Signs (Past 12 Hours) Vital Signs Temp Pulse Resp BP BP Pulse Ox O2 Del Method 07/08/24 16:02 36.6 C 68 19 140/81 97 Room Air 07/08/24 11:31 36.7 C 58 L 19 118/72 98 Room Air 07/08/24 07:14 36.8 C 62 19 130/71 95 Room Air Laboratory Results 07/06/24 05:57 07/08/24 05:35
[2024-07-08] MEDS: DOCUSATE SODIUM 100 MG CAP PO SCH (20:56)
[2024-07-08] MEDS: POTASSIUM CHLORIDE 20 MEQ/15 ML UDC PO SCH (20:56)
[2024-07-08] MEDS: metOLazone 5 MG TABLET PO ONE (21:16)
[2024-07-09 06:36] LABS: BUN Creatinine Ratio 28.5 (10-20); Calcium 9.5 mg/dl (8.6-10.3); Creatinine Clr Calc Pharmacy 26.9 ml/min; Potassium 3.4 mmol/L (3.5-5.1)
--- NOTE | 2024-07-09 12:53 | Hospitalist Progress Note ---
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 She is being managed for the following: Volume overload, driven by liver and renal cause; not cardiac cause. Acute kidney injury over CKD stage III Patient presented with significant weight gain, 42 pounds since March per chart review. Admitting CXR w/ no congestion and US abd w/ moderate ascites. 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 Patient noted to be volume overloaded at presentation. 07/02/2024 echo with EF of 60 to 65%, grade 1 diastolic dysfunction noted. Patient received IV diuresis with elevation of creatinine resulting into acute kidney injury over CKD stage III. Nephrology currently managing, being diuresed, making good urine output. Follow labs in AM. Monitor and replete electrolytes. c/w FR 1200cc/day. Other chronic medical conditions: Continue with/resume home meds as and when able. 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 BLE Doppler and VQ scan negative for PE. Continue with Eliquis. NAFLD cirrhosis: US abdomen with moderate ascites, no confusion. Diuresis as above. Follow-up with GI as an outpatient. Hypertension: Fairly under control, continue with home medications as able. Hyperlipidemia: Continue home statin T2DM: Sliding scale insulin while in hospital, A1c 6.8 this admission. DVT Ppx: Eliquis Code status: FULL PCP: Cabrera Dispo: Admitted to PCU PT/OT, CM to assist w/ dc plan. Admission and Anticipated Discharge Date Admission Date: July 01, 2024 Subjective Patient was seen and examined at bedside. Patient was sitting up in chair, on room air, NAD, resting comfortably. Patient reports eating okay, moved BM yesterday, c/w bowel regimen. denies any new acute medical issues since yesterday. Patient reports feeling better. Physical Exam Physical Exam: GENERAL: Alert and oriented x3. NAD, on RA. HEENT: No pallor, no icterus. Pupils equal, round and reactive to light. Oral mucosa moist. NECK: No JVD, no neck masses. HEART: S1 and S2 heard. Regular rate and rhythm. No murmur, no gallop. RESPIRATORY SYSTEM: Normal AP diameter. No accessory muscle use. No wheezing, no crackles. ABDOMEN: Soft, bowel sounds present, nontender, + distention. CENTRAL NERVOUS SYSTEM: No facial droop. Speech is clear. Obeys simple commands. Moves extremities. EXTREMITIES: 2+ ble edema, no erythema seen. UC w/ light yellow urine collection in bag. Results & Data Results & Data Vital Signs (Past 12 Hours) Vital Signs Temp Pulse Resp BP Pulse Ox O2 Del Method 07/09/24 11:03 36.6 C 57 L 19 117/61 98 Room Air 07/09/24 08:02 69 07/09/24 07:09 36.7 C 59 L 18 134/71 97 Room Air 07/09/24 03:34 36.5 C 60 16 111/69 95 Room Air 07/09/24 02:13 65 143/73 H
--- NOTE | 2024-07-09 14:07 | Nephrology Progress Note ---
Date of Service July 09, 2024 Assessment & Plan (1) BLAIRE (acute kidney injury): Plan: her baseline creat is about 2. creatinine climbed some w/ lasix gtt and other attempts at diuresis ( on intermittent IV since 07/06)> creat 2.7 > 2.6 today. On admission she had creat better than baseline because of Severe hemodilution. with the severe Fluid overload she had, the Creat was misleading. urine was very bland so less likely to be other causes for BLAIRE. No Obstruction on US. She is still quite edematous and needs to be diuresed. Diuresis has been average only with lasix 40 iv bid + aldactone 100 daily; on lasix 80 mg tid since 07/06 Wts >> 112.2 at 07/02 admission; peak at 118.7 on 07/04; 107 on 07/05 > 102.6 07/08 > 100.7 07/09 -needs daily CBC and CMP -cont daily standing weights -cont strict I/0 -cont fluid and sodium limits -continue lasix 80 mg IV q8h ->continue K supplements but increase from 30 mEq tid to 40 mEq qid timed so as not to disturb sleep >> maintain K 4 GOAL diuresis is approx 15 kg before changing to PO as renal function tolerates; curerntly at 11.5 kg (2) CKD (chronic kidney disease) stage 4, GFR 15-29 ml/min: Plan: CKD 3b/4 with fluctuating baseline creatinine ( usually about 2) with NAFLD cirrhosis. (3) Fluid overload: Plan: On admission she had creat better than baseline because of Severe hemodilution. with the severe Fluid overload she had Creat was misleading. has been negative daily >2L; overall 17 L negative She is still edematous, prone to have this recur, and needs to be diuresed. Diuresis has been average only with lasix 40 iv bid + aldactone 100 daily. Fluid overload is driven by Liver and renal cause and not cardiac. However hepatic/renal cause needs even higher dose for response. -held metolazone today -will increase K supplements as above -cont to hold aldactone 100 mg daily -cont 1.2 L FR Admission and Anticipated Discharge Date Admission Date: July 01, 2024 Subjective no interval events; feels diuresis is coming along but knows more to do; walked halls w/ asst yesterday > no exertional dyspnea w/ this but tired Review of Systems 2 Review of Systems: All systems reviewed & are unremarkable except as noted in Subjective Physical Exam 2 Constitutional: well developed (lying flat in bed on RA) and well nourished Eyes: EOM intact bilaterally ENMT: Mouth: + dry oral mucous membranes Neck: no nuchal rigidity Respiratory: normal respiratory effort Auscultation: + diminished lung sounds Cardiovascular: Rate/Rhythm: regular rate and regular rhythm Extremities: + edema (2-3+ BL to knees) Gastrointestinal (Abdomen): Inspection/Auscultation: normal bowel sounds and + abdominal edema Percussion/Palpation: abdomen soft; abdomen nontender Musculoskeletal: Extremities: strength 5/5 throughout Skin: no rashes, warm and dry Neurologic: barroso, fluent speech, no tremor Psychiatric: Orientation: alert and oriented x 3 Results & Data Vital Signs (Past 12 Hours) Vital Signs Temp Pulse Resp BP Pulse Ox O2 Del Method 07/09/24 11:03 36.6 C 57 L 19 117/61 98 Room Air 07/09/24 08:02 69 07/09/24 07:09 36.7 C 59 L 18 134/71 97 Room Air 07/09/24 03:34 36.5 C 60 16 111/69 95 Room Air 07/09/24 02:13 65 143/73 H Laboratory Results 07/06/24 05:57 07/09/24 05:43
[2024-07-09] MEDS: POTASSIUM CHLORIDE 20 MEQ/15 ML UDC PO SCH (16:33)
[2024-07-10 07:41] LABS: BUN Creatinine Ratio 29.6 (10-20); Calcium 9.6 mg/dl (8.6-10.3); Creatinine Clr Calc Pharmacy 26.7 ml/min; Magnesium 2.1 mg/dl (1.7-2.4); Potassium 4.1 mmol/L (3.5-5.1)
[2024-07-10] MEDS: LIDOCAINE 5% 1 PATCH TD SCH (10:36)
[2024-07-10] MEDS: POTASSIUM CHLORIDE CRTAB 20 MEQ TABCR PO SCH (10:36)
--- NOTE | 2024-07-10 10:40 | Hospitalist Progress Note ---
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 She is being managed for the following: Volume overload, driven by liver and renal cause; not cardiac cause. Acute kidney injury over CKD stage III Patient presented with significant weight gain, 42 pounds since March per chart review. Admitting CXR w/ no congestion and US abd w/ moderate ascites. 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 Patient noted to be volume overloaded at presentation. 07/02/2024 echo with EF of 60 to 65%, grade 1 diastolic dysfunction noted. Patient received IV diuresis with elevation of creatinine resulting into acute kidney injury over CKD stage III. Nephrology currently managing, being diuresed, making good urine output. Follow labs in AM. Monitor and replete electrolytes. c/w FR 1200cc/day. Other chronic medical conditions: Continue with/resume home meds as and when able. 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 BLE Doppler and VQ scan negative for PE. Continue with Eliquis. NAFLD cirrhosis: US abdomen with moderate ascites, no confusion. Diuresis as above. Follow-up with GI as an outpatient. Hypertension: Fairly under control, continue with home medications as able. Hyperlipidemia: Continue home statin T2DM: Sliding scale insulin while in hospital, A1c 6.8 this admission. DVT Ppx: Eliquis Code status: FULL PCP: Cabrera Dispo: Admitted to PCU PT/OT, CM to assist w/ dc plan. Admission and Anticipated Discharge Date Admission Date: July 01, 2024 Subjective Patient was seen and examined at bedside. Patient was lying in bed, on room air, NAD, resting comfortably. Patient reports eating okay, denies diarrhea, reports bowels ok, c/w bowel regimen. denies any new acute medical issues since yesterday. Patient reports feeling better. Physical Exam Physical Exam: GENERAL: Alert and oriented x3. NAD, on RA. HEENT: No pallor, no icterus. Pupils equal, round and reactive to light. Oral mucosa moist. NECK: No JVD, no neck masses. HEART: S1 and S2 heard. Regular rate and rhythm. No murmur, no gallop. RESPIRATORY SYSTEM: Normal AP diameter. No accessory muscle use. No wheezing, no crackles. ABDOMEN: Soft, bowel sounds present, nontender, + distention. CENTRAL NERVOUS SYSTEM: No facial droop. Speech is clear. Obeys simple co mmands. Moves extremities. EXTREMITIES: 2+ ble edema, no erythema seen. UC w/ light yellow urine collection in bag. Results & Data Results & Data Vital Signs (Past 12 Hours) Vital Signs Temp Pulse Resp BP BP Pulse Ox O2 Del Method 07/10/24 07:04 36.7 C 63 18 129/68 96 Room Air 07/10/24 03:12 36.7 C 63 16 119/73 95 Room Air
--- NOTE | 2024-07-10 10:56 | Nephrology Progress Note ---
Date of Service July 10, 2024 Assessment & Plan Admission and Anticipated Discharge Date Admission Date: July 01, 2024 Subjective Subjective Assessment & Plan (1) BLAIRE (acute kidney injury): her baseline creat is about 2. On admission she had creat better than baseline because of Severe hemodilution. with the severe Fluid overload she had Creat was misleading. She is still massively edematous and needs to be diuresed. Diuresis was average only with lasix 40 iv bid + aldactone 100 daily. urine was very bland so less likely to be other causes for BLAIRE. No Obstruction seen on US. Good diuresis so far and has lost a lot of weight. but still has massive edema. continue lasix 80 iv q8hr. NO metolazone today. Hold off on Aldactone for today. UA is quite active--So it is possible she had superimposed ATN causing worsening renal function and fluid overload. needs daily CBC and CMP. (2) CKD (chronic kidney disease) stage 4, GFR 15-29 ml/min: CKD 3b/4 with fluctuating baseline creatinine ( usually about 2) with NAFLD cirrhosis. (3) Fluid overload: On admission she had creat better than baseline because of Severe hemodilution. with the severe Fluid overload she had Creat was misleading. She is still massively edematous and needs to be diuresed. Fluid overload is driven by Liver and renal cause and not cardiac. However hepatic/renal cause needs even higher dose for response. Creat has been rising for days now even before high dose lasix. creat same as yesterday---urine 2900 ml. wt keeps going down. use lasix 80 iv q8hr. NO metolazone today. Hold off on Aldactone for today--will resume once the aggressive diuresis phase is over. . Continue kcl supplement aggressively. bicarb starting to get high and needing lot of kcl supplement. May have to start Aldactone to lower the kcl supplement dose. her stable weight is around 190 lbs ( as per patient) weight going down a lot and she is happy. Given her insurance situation I want her to be in the best shape volume singh before discharging her home. Check CMP, CBC and mag daily. S--no new issues. still has massive edema and made 2900 ml urine yesterday. weight going down a lot and she is happy Physical Exam Physical Exam: General Appearance: sitting up in bed, pleasant, obese Neck: Soft non tender, Supple. NO JVD Respiratory: increased respiratory effort, bibasilar rales, scattered expiratory wheezes. No accessory muscle use Cardiovascular: regular rate, rhythm, normal peripheral pulses, 3+BLE edema. Vessels: difficult to assess JVD 2/2 habitus Abdomen/GI: normal bowel sounds, soft but distended, nontender, no hepatosplenomegaly Extremities/Musculoskeletal: 3+ edema b/l Skin: no rashes, normal color, warm/dry Results & Data Vital Signs (Past 12 Hours) Vital Signs Temp Pulse Resp BP BP Pulse Ox O2 Del Method 07/10/24 07:04 36.7 C 63 18 129/68 96 Room Air 07/10/24 03:12 36.7 C 63 16 119/73 95 Room Air
[2024-07-10] MEDS ORDERED: PHARMACY GLYCEMIC MGMT CONSULT PRN (18:00)
[2024-07-11 06:34] LABS: BUN Creatinine Ratio 32.6 (10-20); Calcium 9.5 mg/dl (8.6-10.3); Creatinine Clr Calc Pharmacy 28.7 ml/min
[2024-07-11] MEDS: LANTUS PER UNIT CHARGE SQ SCH (08:25)
--- NOTE | 2024-07-11 09:23 | Nephrology Progress Note ---
Date of Service July 11, 2024 Assessment & Plan Admission and Anticipated Discharge Date Admission Date: July 01, 2024 Subjective Assessment & Plan (1) BLAIRE (acute kidney injury): her baseline creat is about 2. On admission she had creat better than baseline because of Severe hemodilution. with the severe Fluid overload she had Creat was misleading. She is still massively edematous and needs to be diuresed. urine was very bland so less likely to be other causes for BLAIRE. No Obstruction seen on US. Good diuresis so far and has lost a lot of weight. but still has massive edema. continue lasix 80 iv q8hr. NO metolazone today. restart Aldactone from today. lower kcl to 40 bid UA is quite active--So it is possible she had superimposed ATN causing worsening renal function and fluid overload. needs daily CBC and CMP. (2) CKD (chronic kidney disease) stage 4, GFR 15-29 ml/min: CKD 3b/4 with fluctuating baseline creatinine ( usually about 2) with NAFLD cirrhosis. (3) Fluid overload: On admission she had creat better than baseline because of Severe hemodilution. with the severe Fluid overload she had Creat was misleading. She is still massively edematous and needs to be diuresed. Fluid overload is driven by Liver and renal cause and not cardiac. However hepatic/renal cause needs even higher dose for response. Creat was rising for days even before high dose lasix. creat today aboput same as yesterday--has been stable at this range for many days now. ---urine 2900 ml. wt keeps going down. Continue use lasix 80 iv q8hr. NO metolazone. Will resume Aldactone 50 bid starting now---given this lower kcl to 40 bid. may need even less her stable weight is around 190 lbs ( as per patient) weight going down a lot and she is happy. Given her insurance situation I want her to be in the best shape volume singh before discharging her home. Check CMP, CBC and mag daily. S--no new issues. still has massive edema and made 2900 ml urine yesterday. weight going down a lot and she is happy Physical Exam Physical Exam: General Appearance: sitting up in bed, pleasant, obese Neck: Soft non tender, Supple. NO JVD Respiratory: increased respiratory effort, bibasilar rales, scattered expiratory wheezes. No accessory muscle use Cardiovascular: regular rate, rhythm, normal peripheral pulses, 3+BLE edema. Vessels: difficult to assess JVD 2/2 habitus Abdomen/GI: normal bowel sounds, soft but distended, nontender, no hepatosplenomegaly Extremities/Musculoskeletal: 3+ edema b/l Skin: no rashes, normal color, warm/dry Results & Data Vital Signs (Past 12 Hours) Vital Signs Temp Pulse Pulse Resp BP BP Pulse Ox 07/11/24 08:18 68 143/69 H 07/11/24 07:12 36.6 C 63 18 132/68 96 07/11/24 03:15 36.5 C 58 L 18 126/82 94 07/11/24 02:28 136/66 07/10/24 23:01 36.5 C 59 L 18 95/60 L 97 07/10/24 22:00 69 07/10/24 21:38 77 134/77 O2 Del Method 07/11/24 08:18 07/11/24 07:12 Room Air 07/11/24 03:15 Room Air 07/11/24 02:28 07/10/24 23:01 Room Air 07/10/24 22:00 07/10/24 21:38
[2024-07-11] MEDS: SPIRONOLACTONE 25 MG TAB PO SCH (10:15)
--- NOTE | 2024-07-11 11:47 | Pharmacy Report ---
Pharmacy Glycemic Short Note 2 - Date of Service July 11, 2024 - Glycemic Short BSG Results (Last 24 hours): 07/10/24 07/10/24 07/11/24 16:13 20:59 05:51 Glucose 114 H POC Glucose 248 H 133 H 07/11/24 07/11/24 07:11 11:12 Glucose POC Glucose 126 H 231 H OUTPATIENT ANTIDIABETIC REGIMEN: * Novolog 5 units SQ BID * Lantus 22 units SQ qAM * empagliflozin 10mg PO daily HbA1C: 6.8% ASSESSMENT: * Pt is a 64 year old female with a history of DM2 admitted with acute on chronic kidney injury and volume overload. Pharmacy consulted last evening to assist with inpatient glycemic management. * BSGs the last 24h largely elevated: [id number]/dL. Fasting this AM within goal range @ 126mg/dL. Received 20 units of basal insulin yesterday and 32 units of bolus. * Tolerating diet, stressors stable. * Continue Lantus 10 units BID. Novolog tightened to 15/6 last evening- will continue for now. PLAN FOR INPATIENT GLYCEMIC CONTROL: * Hold outpatient oral diabetes medications * Basal insulin * Lantus 10 units SQ BID * Bolus insulin * NovoLog per scale ACHS or Q6hrs while NPO * Goal Range: Low 110 mg/dL - High 140 mg/dL * Correction Factor: 15 mg/dL/unit * Nutritional / Prandial insulin per carb ratio of 1 unit per 6 grams CHO consumed
--- NOTE | 2024-07-11 14:37 | Hospitalist Progress Note ---
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 She is being managed for the following: Volume overload, driven by liver and renal cause; not cardiac cause. Acute kidney injury over CKD stage III Patient presented with significant weight gain, 42 pounds since March per chart review. Admitting CXR w/ no congestion and US abd w/ moderate ascites. 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 Patient noted to be volume overloaded at presentation. 07/02/2024 echo with EF of 60 to 65%, grade 1 diastolic dysfunction noted. Patient received IV diuresis with elevation of creatinine resulting into acute kidney injury over CKD stage III. Nephrology currently managing, being diuresed, making good urine output. Aldactone resumed today. Follow labs in AM. Monitor and replete electrolytes. c/w FR 1200cc/day. Other chronic medical conditions: Continue with/resume home meds as and when able. 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 BLE Doppler and VQ scan negative for PE. Continue with Eliquis. NAFLD cirrhosis: US abdomen with moderate ascites, no confusion. Diuresis as above. Follow-up with GI as an outpatient. Hypertension: Fairly under control, continue with home medications as able. Hyperlipidemia: Continue home statin T2DM: Sliding scale insulin while in hospital, A1c 6.8 this admission. DVT Ppx: Eliquis Code status: FULL PCP: Cabrera Dispo: Admitted to PCU PT/OT, CM to assist w/ dc plan. Admission and Anticipated Discharge Date Admission Date: July 01, 2024 Subjective Patient was seen and examined at bedside. Patient was sitting up in chair, on room air, NAD, resting comfortably. Patient reports eating okay, currently moving bowels regularly, c/w bowel regimen. denies any new acute medical issues since yesterday. Patient reports feeling better. Physical Exam Physical Exam: GENERAL: Alert and oriented x3. NAD, on RA. HEENT: No pallor, no icterus. Pupils equal, round and reactive to light. Oral mucosa moist. NECK: No JVD, no neck masses. HEART: S1 and S2 heard. Regular rate and rhythm. No murmur, no gallop. RESPIRATORY SYSTEM: Normal AP diameter. No accessory muscle use. No wheezing, no crackles. ABDOMEN: Soft, bowel sounds present, nontender, + distention. CENTRAL NERVOUS SYSTEM: No facial droop. Speech is clear. Obeys simple commands. Moves extremities. EXTREMITIES: 1+ ble edema, no erythema seen. UC w/ light yellow urine collection in bag. Results & Data Results & Data Vital Signs (Past 12 Hours) Vital Signs Temp Pulse Resp BP BP Pulse Ox O2 Del Method 07/11/24 11:12 36.7 C 60 18 126/71 99 Room Air 07/11/24 08:18 68 143/69 H 07/11/24 07:12 36.6 C 63 18 132/68 96 Room Air 07/11/24 03:15 36.5 C 58 L 18 126/82 94 Room Air
[2024-07-11] MEDS: POTASSIUM CHLORIDE CRTAB 20 MEQ TABCR PO SCH (20:56)
[2024-07-12 06:27] LABS: BUN Creatinine Ratio 32.3 (10-20); Calcium 9.5 mg/dl (8.6-10.3); Creatinine Clr Calc Pharmacy 27.7 ml/min; Potassium 3.9 mmol/L (3.5-5.1)
--- NOTE | 2024-07-12 12:25 | Hospitalist Progress Note ---
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 She is being managed for the following: Volume overload, driven by liver and renal cause; not cardiac cause. Acute kidney injury over CKD stage III Patient presented with significant weight gain, 42 pounds since March per chart review. Admitting CXR w/ no congestion and US abd w/ moderate ascites. 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 Patient noted to be volume overloaded at presentation. 07/02/2024 echo with EF of 60 to 65%, grade 1 diastolic dysfunction noted. Nephrology currently managing, being diuresed, making good urine output. Aldactone resumed on 07/12/2024 Monitor and replete electrolytes. c/w FR 1200cc/day. Other chronic medical conditions: Continue with/resume home meds as and when able. 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 BLE Doppler and VQ scan negative for PE. Continue with Eliquis. NAFLD cirrhosis: US abdomen with moderate ascites, no confusion. Diuresis as above. Follow-up with GI as an outpatient. Hypertension: Fairly under control, continue with home medications as able. Hyperlipidemia: Continue home statin T2DM: Sliding scale insulin while in hospital, A1c 6.8 this admission. DVT Ppx: Eliquis Code status: FULL PCP: Cabrera Dispo: Admitted to PCU PT/OT, CM to assist w/ dc plan. Please note the above document was generated using voice recognition software. It may contain grammatical, syntax or spelling errors. Any formal questions or concerns about the content, text or information contained within the body of this dictation should be directly addressed to the provider for clarification Admission and Anticipated Discharge Date Admission Date: July 01, 2024 Subjective Patient seen and examined at bedside. She reports that she is feeling much better; reports that her shortness of breath has improved significantly. Urine output of 2600 mL in last 24 hours. Weight has improved from 113 kg to 97.7 kg Review of Systems Review of Systems: All systems reviewed & are unremarkable except as noted in Subjective Physical Exam Physical Exam: GENERAL: Alert and oriented x3. NAD, on RA. HEENT: No pallor, no icterus. Pupils equal, round and reactive to light. Oral mucosa moist. NECK: No JVD, no neck masses. HEART: S1 and S2 heard. Regular rate and rhythm. No murmur, no gallop. RESPIRATORY SYSTEM: Normal AP diameter. No accessory muscle use. No wheezing, no crackles. ABDOMEN: Soft, bowel sounds present,non-tender CENTRAL NERVOUS SYSTEM: No facial droop. Speech is clear. Obeys simple commands. Moves extremities. EXTREMITIES: 1+ ble edema, no erythema seen. UC w/ light yellow urine collection in bag. Results & Data Results & Data Vital Signs (Past 12 Hours) Vital Signs Temp Pulse Pulse Resp BP BP Pulse Ox 07/12/24 10:51 36.6 C 62 19 133/73 96 07/12/24 09:46 07/12/24 07:52 66 07/12/24 06:54 36.8 C 62 18 110/71 96 07/12/24 02:16 36.8 C 64 17 118/63 95 O2 Del Method 07/12/24 10:51 Room Air 07/12/24 09:46 Room Air 07/12/24 07:52 07/12/24 06:54 Room Air 07/12/24 02:16 Room Air
--- NOTE | 2024-07-12 17:36 | Nephrology Progress Note ---
Date of Service July 12, 2024 Assessment & Plan (1) BLAIRE (acute kidney injury): Plan: her baseline creat is about 2. creatinine climbed some w/ lasix gtt and other attempts at diuresis ( on intermittent IV since 07/06)> creat 2.7 > 2.5 today. On admission she had creat better than baseline because of Severe hemodilution. with the severe Fluid overload she had, the Creat was misleading. urine was very bland so less likely to be other causes for BLAIRE. No Obstruction on US. She is still quite edematous and needs to be diuresed. 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 (3) Fluid overload: Plan: On admission she had creat better than baseline because of Severe hemodilution. with the severe Fluid overload she had Creat was misleading. She is still edematous, prone to have this recur, and needs to be diuresed. Diuresis has been average only with lasix 40 iv bid + aldactone 100 daily. Fluid overload is driven by Liver and renal cause and not cardiac. However hepatic/renal cause needs even higher dose for response. -diuretics/K as above >> note rate of removal slowing >> will give metolazone today 2.5 mg in addition to above -cont 1.2 L FR Admission and Anticipated Discharge Date Admission Date: July 01, 2024 Subjective seen on late afternoon rounds; edema much improved; has gree socks now . ambs w/ walker Review of Systems 2 Review of Systems: All systems reviewed & are unremarkable except as noted in Subjective Physical Exam 2 Constitutional: well developed (sitting up in chair on RA) and well nourished Eyes: EOM intact bilaterally ENMT: Mouth: + dry oral mucous membranes Neck: no nuchal rigidity Respiratory: normal respiratory effort Auscultation: + diminished lung sounds Cardiovascular: Rate/Rhythm: regular rate and regular rhythm Extremities: + edema (1++ BL to knees) Gastrointestinal (Abdomen): Inspection/Auscultation: normal bowel sounds and + abdominal edema Percussion/Palpation: abdomen soft; abdomen nontender Musculoskeletal: Extremities: strength 5/5 throughout Skin: no rashes, warm and dry Psychiatric: Orientation: alert and oriented x 3 Results & Data Vital Signs (Past 12 Hours) Vital Signs Temp Pulse Pulse Resp BP BP Pulse Ox 07/12/24 15:25 36.6 C 63 18 123/80 96 07/12/24 10:51 36.6 C 62 19 133/73 96 07/12/24 09:46 07/12/24 07:52 66 07/12/24 06:54 36.8 C 62 18 110/71 96 O2 Del Method 07/12/24 15:25 Room Air 07/12/24 10:51 Room Air 07/12/24 09:46 Room Air 07/12/24 07:52 07/12/24 06:54 Room Air Laboratory Results 07/06/24 05:57 07/12/24 05:34
[2024-07-12] MEDS: metOLazone 2.5 MG TABLET PO ONE (18:27)
[2024-07-13 03:05] VITALS: RESP 18
[2024-07-13 06:08] LABS: Basophils # (auto) 0.06 K/uL (0.00-0.20); Basophils % (auto) 1.1 %; Eosinophils # (auto) 0.11 K/uL (0.00-0.50); Eosinophils % (auto) 2.1 %; Hematocrit (blood only) 27.2 % (37.0-47.0); Hemoglobin 9.3 g/dl (12.0-16.0); Immature Granulocytes # (auto) 0.01 K/uL (0.01-0.20); Immature Granulocytes % (auto) 0.2 %; Lymphocytes # (auto) 1.19 K/uL (1.20-3.40); Lymphocytes % (auto) 22.8 %; Mean Corpuscular Hemoglobin 30.7 pg (25.0-34.0); Mean Corpuscular Hgb Conc 34.2 g/dL (32.0-36.0); Mean Corpuscular Volume 89.8 fL (80.0-100.0); Mean Platelet Volume 10.7 fL (9.4-12.4); Monocytes # (auto) 0.42 K/uL (0.11-0.59); Neutrophils # (auto) 3.44 K/uL (1.40-6.50); Neutrophils % (auto) 65.8 %; Platelet Count 131 K/uL (130-400); RDW Coefficient of Variation 13.2 % (11.5-14.5); RDW Standard Deviation 43.5 fL (36.4-46.3); Red Blood Count 3.03 M/uL (4.20-5.40); White Blood Count 5.23 K/ul (4.8-10.8)
[2024-07-13 06:24] LABS: BUN Creatinine Ratio 31.5 (10-20); Calcium 9.4 mg/dl (8.6-10.3); Creatinine Clr Calc Pharmacy 25.3 ml/min; Potassium 3.6 mmol/L (3.5-5.1)
--- NOTE | 2024-07-13 08:19 | Hospitalist Progress Note ---
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 She is being managed for the following: Volume overload (Likely secondary to CKD and Liver cirrhosis) Acute kidney injury over CKD stage III Patient presented with significant weight gain, 42 pounds since March per chart review. Admitting CXR w/ no congestion and US abd w/ moderate ascites. 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 Patient noted to be volume overloaded at presentation. 07/02/2024 echo with EF of 60 to 65%, grade 1 diastolic dysfunction noted. Nephrology currently managing, being diuresed, making good urine output. Aldactone resumed on 07/12/2024 Monitor and replete electrolytes. c/w FR 1200cc/day. Other chronic medical conditions: Continue with/resume home meds as and when able. 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 BLE Doppler and VQ scan negative for PE. Continue with Eliquis. NAFLD cirrhosis: US abdomen with moderate ascites, no confusion. Diuresis as above. Follow-up with GI as an outpatient. Hypertension: Fairly under control, continue with home medications as able. Hyperlipidemia: Continue home statin T2DM: Sliding scale insulin while in hospital, A1c 6.8 this admission. DVT Ppx: Eliquis Code status: FULL PCP: Cabrera Dispo: Admitted to PCU PT/OT, CM to assist w/ dc plan. Please note the above document was generated using voice recognition software. It may contain grammatical, syntax or spelling errors. Any formal questions or concerns about the content, text or information contained within the body of t his dictation should be directly addressed to the provider for clarification Admission and Anticipated Discharge Date Admission Date: July 01, 2024 Subjective Patient seen and examined at bedside. Comfortable; not in distress. Denies fever, chills, chest pain, shortness of breath, abdominal pain or urinary symptoms. No significant overnight events Review of Systems Review of Systems: All systems reviewed & are unremarkable except as noted in Subjective Physical Exam Physical Exam: GENERAL: Alert and oriented x3. NAD, on RA. HEENT: No pallor, no icterus. Pupils equal, round and reactive to light. Oral mucosa moist. NECK: No JVD, no neck masses. HEART: S1 and S2 heard. Regular rate and rhythm. No murmur, no gallop. RESPIRATORY SYSTEM: Normal AP diameter. No accessory muscle use. No wheezing, no crackles. ABDOMEN: Soft, bowel sounds present,non-tender CENTRAL NERVOUS SYSTEM: No facial droop. Speech is clear. Obeys simple commands. Moves extremities. EXTREMITIES: trace ble edema, no erythema seen. UC w/ light yellow urine collection in bag. Results & Data Results & Data Vital Signs (Past 12 Hours) Vital Signs Temp Pulse Pulse Resp BP BP Pulse Ox 07/13/24 07:20 36.7 C 60 18 128/66 95 07/13/24 03:02 36.6 C 72 18 140/68 98 07/13/24 00:01 36.6 C 70 17 142/65 H 97 07/12/24 23:21 69 07/12/24 20:17 36.8 C 81 16 147/86 H 94 O2 Del Method 07/13/24 07:20 Room Air 07/13/24 03:02 Room Air 07/13/24 00:01 Room Air 07/12/24 23:21 07/12/24 20:17 Room Air
--- NOTE | 2024-07-13 12:07 | Pharmacy Report ---
Pharmacy Glycemic Short Note 2 - Date of Service July 13, 2024 - Glycemic Short BSG Results (Last 24 hours): 07/12/24 07/12/24 07/13/24 16:09 20:47 05:31 Glucose 92 POC Glucose 144 H 164 H 07/13/24 07/13/24 07:22 11:18 Glucose POC Glucose 113 H 245 H OUTPATIENT ANTIDIABETIC REGIMEN: * Novolog 5 units SQ BID * Lantus 22 units SQ qAM * empagliflozin 10mg PO daily HbA1C: 6.8% ASSESSMENT: 07/13: * BSGs largely within goal the last 48h. Received 20 units of basal and 30 units of bolus insulin yesterday. * Tolerating diet, other stressors stable. * Continue Lantus 10 units BID and Novolog ACHS 15/6. 07/11 * Pt is a 64 year old female with a history of DM2 admitted with acute on chronic kidney injury and volume overload. Pharmacy consulted last evening to assist with inpatient glycemic management. * BSGs the last 24h largely elevated: [id number]/dL. Fasting this AM within goal range @ 126mg/dL. Received 20 units of basal insulin yesterday and 32 units of bolus. * Tolerating diet, stressors stable. * Continue Lantus 10 units BID. Novolog tightened to 15/6 last evening- will continue for now. PLAN FOR INPATIENT GLYCEMIC CONTROL: * Hold outpatient oral diabetes medications * Basal insulin * Lantus 10 units SQ BID * Bolus insulin * NovoLog per scale ACHS or Q6hrs while NPO * Goal Range: Low 110 mg/dL - High 140 mg/dL * Correction Factor: 15 mg/dL/unit * Nutritional / Prandial insulin per carb ratio of 1 unit per 6 grams CHO consumed
--- NOTE | 2024-07-13 17:12 | Nephrology Progress Note ---
Date of Service July 13, 2024 Assessment & Plan (1) BLAIRE (acute kidney injury): Plan: her baseline creat is about 2. creatinine climbed some w/ lasix gtt and other attempts at diuresis ( on intermittent IV since 07/06)> creat 2.7 today. Diuresis has been average only with lasix 40 iv bid + aldactone 100 daily; was on lasix 80 mg tid since 07/06 Wts >> 112.2 at 07/02 admission; peak at 118.7 on 07/04; 107 on 07/05 > 102.6 07/08 > 100.7 07/09> 97.7 07/12 - Will stop IV Lasix. Change her to torsemide 100 mg daily. Continue Aldactone. From renal standpoint patient can be discharged on torsemide and Aldactone - discussed compliance with outpatient diuretics and patient agrees to take her diuretics at home. 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 (3) Fluid overload: Plan: On admission she had creat better than baseline because of Severe hemodilution. with the severe Fluid overload she had Creat was misleading. -diuretics/K as above -cont 1.2 L FR discussed plan with Dr. Dow who agrees with switching her torsemide. Will also remove Sutherland catheter. Admission and Anticipated Discharge Date Admission Date: July 01, 2024 Subjective Seen for CKD and volume overload. She feels better today. No shortness of breath. She was net -2 L yesterday. Review of Systems 2 Review of Systems: All other systems were reviewed and negative except as noted in HPI Physical Exam 2 Physical Exam: General exam: Appears comfortable, no acute distress HEENT: Pupils are equal and reactive to light Neck: No JVD, neck is supple trachea is midline Respiratory system: Clear breath sounds bilaterally. Gastrointestinal: Abdomen is soft, non distended, non tender, bowel sounds are present CVS: Regular rate and rhythm. No murmurs, rubs or gallops Musculoskeletal: No joint or muscle tenderness Extremities: Non tender, no edema, peripheral pulses are present Neuro: Oriented, no tremors, no focal neurological deficits Skin: No rashes Results & Data Vital Signs (Past 12 Hours) Vital Signs Temp Pulse Pulse Resp BP Pulse Ox O2 Del Method 07/13/24 14:40 36.9 C 62 18 124/76 96 Room Air 07/13/24 11:29 65 07/13/24 10:53 36.3 C L 65 18 126/72 96 Room Air 07/13/24 08:00 Room Air 07/13/24 07:20 36.7 C 60 18 128/66 95 Room Air Laboratory Results 07/13/24 05:31 07/13/24 05:31 WBC 5.23 RBC 3.03 L MCV 89.8 MCH 30.7 MCHC 34.2 RDW Std Deviation 43.5 RDW Coeff of Samy 13.2 Plt Count 131 MPV 10.7
[2024-07-13] MEDS ORDERED: FUROSEMIDE 40 MG/4 ML VIAL IV SCH (21:00)
[2024-07-14 07:26] LABS: Basophils # (auto) 0.06 K/uL (0.00-0.20); Basophils % (auto) 1.1 %; Eosinophils # (auto) 0.15 K/uL (0.00-0.50); Eosinophils % (auto) 2.7 %; Hematocrit (blood only) 26.3 % (37.0-47.0); Immature Granulocytes # (auto) 0.03 K/uL (0.01-0.20); Immature Granulocytes % (auto) 0.5 %; Lymphocytes # (auto) 1.17 K/uL (1.20-3.40); Lymphocytes % (auto) 20.8 %; Mean Corpuscular Hemoglobin 30.8 pg (25.0-34.0); Mean Corpuscular Hgb Conc 34.2 g/dL (32.0-36.0); Mean Corpuscular Volume 90.1 fL (80.0-100.0); Mean Platelet Volume 10.6 fL (9.4-12.4); Monocytes # (auto) 0.46 K/uL (0.11-0.59); Monocytes % (auto) 8.2 %; Neutrophils # (auto) 3.75 K/uL (1.40-6.50); Neutrophils % (auto) 66.7 %; Platelet Count 123 K/uL (130-400); RDW Coefficient of Variation 13.2 % (11.5-14.5); RDW Standard Deviation 43.7 fL (36.4-46.3); Red Blood Count 2.92 M/uL (4.20-5.40); White Blood Count 5.62 K/ul (4.8-10.8)
[2024-07-14 07:54] LABS: BUN Creatinine Ratio 29.4 (10-20); Calcium 9.4 mg/dl (8.6-10.3); Creatinine Clr Calc Pharmacy 24.6 ml/min; Potassium 3.9 mmol/L (3.5-5.1)
[2024-07-14] MEDS: TORSEMIDE 100 MG TAB PO SCH (08:29)
--- NOTE | 2024-07-14 08:57 | Hospitalist Progress Note ---
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 Patient had issues with insurance and was unable to fill medication and hence has not been taking any home meds in the last 2 weeks ER PHYSICIAN. She is being managed for the following: Volume overload (Likely secondary to CKD and Liver cirrhosis) Acute kidney injury over CKD stage III Patient presented with significant weight gain, 42 pounds since March per chart review. Admitting CXR w/ no congestion and US abd w/ moderate ascites. Patient ran out of all medications, including torsemide and Aldactone 10 days ago ER PHYSICIAN due to insurance/cost issues. Patient noted to be volume overloaded at presentation. 07/02/2024 echo with EF of 60 to 65%, grade 1 diastolic dysfunction noted. During the hospitalization, patient was diuresed with IV diuretics with negative of 25 L. She was switched over to torsemide 100 mg and spironolactone by nephrology. Other chronic medical conditions: Continue with/resume home meds as and when able. Saddle PE: On long-term anticoagulation, was off of Eliquis for 10 days ER PHYSICIAN. BLE Doppler and VQ scan negative for PE. Continue with Eliquis. NAFLD cirrhosis: US abdomen with moderate ascites, no confusion. Diuresis as above. Follow-up with GI as an outpatient. Hypertension: Fairly under control, continue with home medications as able. Hyperlipidemia: Continue home statin T2DM: Sliding scale insulin while in hospital, A1c 6.8 this admission. DVT Ppx: Eliquis Code status: FULL PCP: Cabrera Dispo: patient stable for transfer to rehab. Please note the above document was generated using voice recognition software. It may contain grammatical, syntax or spelling errors. Any formal questions or concerns about the content, text or information contained within the body of this dictation should be directly addressed to the provider for clarification Admission and Anticipated Discharge Date Admission Date: July 01, 2024 Subjective Patient seen and examined at bedside. Comfortable; not in distress. Denies fever, chills, chest pain, shortness of breath, abdominal pain or urinary symptoms. No significant overnight events Review of Systems Review of Systems: All systems reviewed & are unremarkable except as noted in Subjective Physical Exam Physical Exam: GENERAL: Alert and oriented x3. NAD, on RA. HEENT: No pallor, no icterus. Pupils equal, round and reactive to light. Oral mucosa moist. NECK: No JVD, no neck masses. HEART: S1 and S2 heard. Regular rate and rhythm. No murmur, no gallop. RESPIRATORY SYSTEM: Normal AP diameter. No accessory muscle use. No wheezing, no crackles. ABDOMEN: Soft, bowel sounds present,non-tender CENTRAL NERVOUS SYSTEM: No facial droop. Speech is clear. Obeys simple commands. Moves extremities. EXTREMITIES: trace ble edema, no erythema seen. UC w/ light yellow urine collection in bag. Results & Data Results & Data Vital Signs (Past 12 Hours) Vital Signs Temp Pulse Pulse Resp BP BP Pulse Ox 07/14/24 07:08 36.8 C 58 L 18 122/80 96 07/14/24 02:23 36.7 C 65 18 127/83 96 07/13/24 23:38 71 07/13/24 23:31 36.9 C 61 18 129/78 96 O2 Del Method 07/14/24 07:08 Room Air 07/14/24 02:23 Room Air 07/13/24 23:38 07/13/24 23:31 Room Air
[2024-07-14 11:02] VITALS: O2SAT 97
--- NOTE | 2024-07-14 11:46 | Pharmacy Report ---
Pharmacy Glycemic Short Note 2 - Date of Service July 14, 2024 - Glycemic Short BSG Results (Last 24 hours): 07/13/24 07/13/24 07/14/24 16:38 20:19 07:03 Glucose 113 H POC Glucose 194 H 141 H 07/14/24 07/14/24 07:09 11:01 Glucose POC Glucose 118 H 192 H OUTPATIENT ANTIDIABETIC REGIMEN: * Novolog 5 units SQ BID * Lantus 22 units SQ qAM * empagliflozin 10mg PO daily HbA1C: 6.8% ASSESSMENT: 07/14: * BSGs [id number]/dl the last 24h. Received 20 units of basal and 37 units of bolus insulin yesterday. * Stressors stable- tolerating diet. * Continue Lantus 10 units BID. Novolog carb ratio tightened slightly for improved prandial coverage. 07/13: * BSGs largely within goal the last 48h. Received 20 units of basal and 30 units of bolus insulin yesterday. * Tolerating diet, other stressors stable. * Continue Lantus 10 units BID and Novolog ACHS 15/6. 07/11 * Pt is a 64 year old female with a history of DM2 admitted with acute on chronic kidney injury and volume overload. Pharmacy consulted last evening to assist with inpatient glycemic management. * BSGs the last 24h largely elevated: [id number]/dL. Fasting this AM within goal range @ 126mg/dL. Received 20 units of basal insulin yesterday and 32 units of bolus. * Tolerating diet, stressors stable. * Continue Lantus 10 units BID. Novolog tightened to 15/6 last evening- will continue for now. PLAN FOR INPATIENT GLYCEMIC CONTROL: * Hold outpatient oral diabetes medications * Basal insulin * Lantus 10 units SQ BID * Bolus insulin * NovoLog per scale ACHS or Q6hrs while NPO * Goal Range: Low 110 mg/dL - High 140 mg/dL * Correction Factor: 15 mg/dL/unit * Nutritional / Prandial insulin per carb ratio of 1 unit per 5 grams CHO consumed
--- NOTE | 2024-07-14 14:07 | Discharge Summary ---
Date of Service July 14, 2024 Admission HPI Per Admitting Provider This is a 64-year-old female with PMH of NAFLD cirrhosis, HTN, HLD, history of saddle PE on eliquis, DM II, anemia, CKD III and other medical problems listed below who presents with dyspnea on exertion. Patient had issues with insurance recently and was unable to fill medications. Has not taken any of her home meds in at least 2 weeks. Is trying to to get an appointment at [facility] and but unable to be seen until July. Endorses a 40 pound weight gain over the past 1-2 months with progressive shortness of breath. Having dyspnea even when she walks across the hallway in her home and had to sit down and take breaks when shopping in [employer] earlier today. Denies any fever, chills, headache. No chest pain, palpitations, nausea, vomiting, abdominal pain, dysuria, diarrhea or constipation. Progressively worsening lower extremity swelling. Principal Diagnosis Decompensated liver cirrhosis BLAIRE on CKD Discharge Exam GENERAL: Alert and oriented x3. NAD, on RA. HEENT: No pallor, no icterus. Pupils equal, round and reactive to light. Oral mucosa moist. NECK: No JVD, no neck masses. HEART: S1 and S2 heard. Regular rate and rhythm. No murmur, no gallop. RESPIRATORY SYSTEM: Normal AP diameter. No accessory muscle use. No wheezing, no crackles. ABDOMEN: Soft, bowel sounds present,non-tender CENTRAL NERVOUS SYSTEM: No facial droop. Speech is clear. Obeys simple commands. Moves extremities. EXTREMITIES: trace ble edema, no erythema seen. UC w/ light yellow urine collection in bag. 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 She is being managed for the following: Volume overload (Likely secondary to CKD and Liver cirrhosis) Acute kidney injury over CKD stage III Patient presented with significant weight gain, 42 pounds since March per chart review. Admitting CXR w/ no congestion and US abd w/ moderate ascites. 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 Patient noted to be volume overloaded at presentation. 07/02/2024 echo with EF of 60 to 65%, grade 1 diastolic dysfunction noted. During the hospitalization, patient was diuresed with IV diuretics with negative of 25 L. She was initially plan to be discharged on torsemide 100 mg once a day. However due to insurance restrictions; patient was discharged on Lasix 80 mg twice a day through [facility] pharmacy as per nephrology recommendation. She was also given prescription for spironolactone as well. Repeat BMP with PCP during follow up Other chronic medical conditions: Continue with/resume home meds as and when able. 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 BLE Doppler and VQ scan negative for PE. Patient was given Eliquis till July 27, 2024 from the inpatient pharmacy. Patient was also provided a prescription to metal pickling equipment operator her prescription after her insurance starts on July. NAFLD cirrhosis: US abdomen with moderate ascites, no confusion. Diuresis as above. Follow-up with GI as an outpatient. Hypertension: Fairly under control, continue with home medications as able. Hyperlipidemia: Continue home statin T2DM: Sliding scale insulin while in hospital, A1c 6.8 this admission. patient reported having enough supply of insulin at home. Patient Was discharged home and was instructed to closely follow her weight; follow-up with her PCP. Also discussed importance of compliance. Patient verbalized understanding of the instruction. Please note the above document was generated using voice recognition software. It may contain grammatical, syntax or spelling errors. Any formal questions or concerns about the content, text or information contained within the body of this dictation should be directly addressed to the provider for clarification Total Time Total Time Spent Total Time Spent (In Minutes): 45 Total Time Includes: Examination of the Patient, Discharge Planning, Medication Reconciliation, Communication With Other Providers and Other Discharge Plan Discharge Items Patient Disposition: Home - Self-Care Reason For Visit: DYSPNEA ON EXERTION Discharge Diagnosis: Volume overload (Likely secondary to CKD and Liver cirrhosis) Acute kidney injury over CKD stage III Activity: Resume your previous activity Non-emergency contact: Primary Care Provider Call non-emergency contact if: you have any medication questions and your symptoms worsen Follow-up/Referrals: Jonathan Rees MD [Primary Care Provider] - Diet: Regular Addtl Attending Provider Instructions: You were admitted to the hospital due to volume overload. You are treated by nephrology during the hospitalization. You are prescribed following medication; Take Lasix 80 mg twice a day, before breakfast and around lunchtime. Take the spironolactone 50 mg twice a day Take Eliquis 5 mg twice a day. Please metal pickling equipment operator the prescription on July 27 when your new insurance kicks in. Will make an appointment with your primary care doctor within next couple of weeks; you will need repeat BMP to evaluate your kidney function. Pending Studies at Discharge: No Stand-Alone Forms: My [facility] [employer], Smoking Cessation Medications and DC Order Prescriptions: New potassium chloride 20 mEq Tablet,Er Particles/Crystals 20 meq PO BID 30 Days Qty: 60 0RF Eliquis 5 mg Tablet 5 mg PO Q12H Qty: 60 0RF furosemide [Lasix] 80 mg tablet 80 mg PO BID Qty: 60 0RF spironolactone 50 mg tablet 50 mg PO BID Qty: 60 0RF Continued albuterol sulfate 90 mcg/actuation HFA aerosol inhaler 2 puff INHALATION QID PRN (Reason: wheezing/SOB) docusate sodium [Colace] 100 mg capsule 100 mg PO DAILY PRN (Reason: Constipation) tramadol 50 mg Tablet 50 mg PO Q6H PRN (Reason: Pain) rosuvastatin 5 mg Tablet 5 mg PO QAM methyl salicylate-menthol 15-10 % Cream 1 applic TOPICAL BID PRN (Reason: Pain) pantoprazole 40 mg tablet,delayed release (DR/EC) 20 mg PO BID multivitamin Tablet 1 tab PO QAM insulin aspart U-100 [Novolog FlexPen U-100 Insulin] 100 unit/mL (3 mL) insulin pen 5 unit subcut BID insulin glargine [Lantus Solostar U-100 Insulin] 100 unit/mL (3 mL) insulin pen 22 unit SUBCUT QAM ropinirole 0.25 mg Tablet 0.25 mg PO HS Qty: 30 0RF Held Jardiance 10 mg Tablet 10 mg PO QAM Hold Instructions: Resume on 07/27/24. Discontinued Eliquis 5 mg Tablet 5 mg PO Q12H Qty: 60 0RF torsemide 20 mg tablet 20 mg PO QAM spironolactone [Aldactone] 50 mg tablet 100 mg PO QAM Discharge Orders: Discharge Order (Routine); Ordered 07/14/24 Ordered By: Tigre Dow Admission Data Admit Date/Time: 07/01/24 15:29 Attending Provider: Tigre Dow Admit Provider: Fabián Salinas Primary Care Provider: Jonathan Rees Other Providers: Fabián Salinas; Anais Whatron; Juany Brown Japheth E.; Pearl Mayer; Svitlana Boggs; [facility]
[2024-07-14 14:47] VITALS: BP 131/74; TEMP 98.4
[2024-07-14 16:04] VITALS: PULSE 61
--- NOTE | 2024-07-14 17:44 | Nephrology Progress Note ---
Date of Service July 14, 2024 Assessment & Plan (1) BLAIRE (acute kidney injury): Plan: her baseline creat is about 2. creatinine climbed some w/ lasix gtt and other attempts at diuresis ( on intermittent IV since 07/06)> creat 2.8 today. Diuresis has been average only with lasix 40 iv bid + aldactone 100 daily; was on lasix 80 mg tid since 07/06 Wts >> 112.2 at 07/02 admission; peak at 118.7 on 07/04; 107 on 07/05 > 102.6 07/08 > 100.7 07/09> 97.7 07/12 - Will stop IV Lasix. Change her to torsemide 100 mg daily. Continue Aldactone. From renal standpoint patient can be discharged on torsemide and Aldactone. If patient can not afford torsemide due to insurance problems, she can be discharged on oral Lasix 100 mg twice daily - discussed compliance with outpatient diuretics and patient agrees to take her diuretics at home. 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 (3) Fluid overload: Plan: On admission she had creat better than baseline because of Severe hemodilution. with the severe Fluid overload she had Creat was misleading. -diuretics/K as above -cont 1.2 L FR discussed plan with Dr. Dow who agrees with switching her torsemide. Will also remove Sutherland catheter. Admission and Anticipated Discharge Date Admission Date: July 01, 2024 Subjective Seen for acute kidney injury and volume overload. She feels better now. No shortness of breath. No leg swelling. Review of Systems 2 Review of Systems: All other systems were reviewed and negative except as noted in HPI Physical Exam 2 Physical Exam: General exam: Appears comfortable, no acute distress HEENT: Pupils are equal and reactive to light Neck: No JVD, neck is supple trachea is midline Respiratory system: Clear breath sounds bilaterally. Gastrointestinal: Abdomen is soft, non distended, non tender, bowel sounds are present CVS: Regular rate and rhythm. No murmurs, rubs or gallops Musculoskeletal: No joint or muscle tenderness Extremities: Non tender, no edema, peripheral pulses are present Neuro: Oriented, no tremors, no focal neurological deficits Skin: No rashes Results & Data Vital Signs (Past 12 Hours) Vital Signs Temp Pulse Pulse Resp BP BP Pulse Ox 07/14/24 16:03 36.9 C 61 18 122/80 131/74 97 07/14/24 15:59 71 07/14/24 14:46 36.9 C 61 18 131/74 97 07/14/24 11:01 36.6 C 61 18 151/85 H 97 07/14/24 09:52 62 07/14/24 07:08 36.8 C 58 L 18 122/80 96 O2 Del Method 07/14/24 16:03 07/14/24 15:59 07/14/24 14:46 Room Air 07/14/24 11:01 Room Air 07/14/24 09:52 07/14/24 07:08 Room Air Laboratory Results 07/14/24 07:03 07/14/24 07:03 WBC 5.62 RBC 2.92 L MCV 90.1 MCH 30.8 MCHC 34.2 RDW Std Deviation 43.7 RDW Coeff of Samy 13.2 Plt Count 123 L MPV 10.6
[2024-07-14] MEDS ORDERED: APIXABAN 5 MG TABLET PO SCH ×3 (21:00)
== END 2024-07-14 17:42 | disposition home or self-care (01) | DRG 291 ==
LOC: ED 12:32 → 2E 15:29 → SUATTDRO 15:29 → 2E 17:07
DX: T50.0X6A Underdosing of mineralocorticoids and their antagonists, initial encounter; Z79.4 Long term (current) use of insulin; N18.4 Chronic kidney disease, stage 4 (severe); I13.0 Hypertensive heart and chronic kidney disease with heart failure and stage 1 through stage 4 chronic kidney disease, or unspecified chronic kidney disease; F41.9 Anxiety disorder, unspecified; K74.60 Unspecified cirrhosis of liver; N18.30 Chronic kidney disease, stage 3 unspecified; K21.9 Gastro-esophageal reflux disease without esophagitis; Z86.711 Personal history of pulmonary embolism; Z91.120 Patient's intentional underdosing of medication regimen due to financial hardship; T50.1X6A Underdosing of loop [high-ceiling] diuretics, initial encounter; G25.81 Restless legs syndrome; Z91.81 History of falling; I50.31 Acute diastolic (congestive) heart failure; Z79.01 Long term (current) use of anticoagulants; E78.5 Hyperlipidemia, unspecified; K75.81 Nonalcoholic steatohepatitis (NASH); Z86.718 Personal history of other venous thrombosis and embolism; E11.22 Type 2 diabetes mellitus with diabetic chronic kidney disease; Z79.899 Other long term (current) drug therapy; N17.9 Acute kidney failure, unspecified

== ENCOUNTER 2024-09-03 12:03 | Inpatient (IN) ==
--- OUTSIDE RECORDS SUMMARY | 2024-09-03 12:11 | External Medical Summary | Summary of Care ---
Author Name Unknown Organization [facility] Address [address] [facility] [place] [address] Phone [phone] Care Team Providers Care Valuation Manager Name Role Phone Lani Vargas PA-C Primary Care Provider [phone] Reason for Referral * Precert (Within 10 days (routine)) - Authorized Specialty Diagnoses / Procedures Referred By Contac t Referred To Contact Radiology Diagnoses PMB (postmenopausal bleeding) Free fluid in pelvis Adnexal cyst Procedures MRI PELVIS WO CONTRAST Erica Saucedo PA-C [address] [place] [phone] Phone: tel: fax: Referral ID Status Reason Start Date Expiration Date V isits Requested Visits Authorized [id number] Authorized 09/01/2024 [id number] Reason for Visit * Reason Comments Optometric Aide New * Evaluate & Treat - Unlimited Visits (Within 30 days (routine)) - Authorized Specialty Diagnoses / Procedures Referred By Contac t Referred To Contact Obstetrics/Gynecology / Gynecology Obstetrics Diagnoses Vaginal spotting Jonathan Rees III, MD [address] [place] [address] Phone: tel: fax: Referral ID Status Reason Start Date Expiration Date Visits Requested Visits Authorized [id number] Authorized Specialty Services Required 08/18/2024 [id number] Encounter Details Date Type Department Care Team ([facility] Contact Info) Description 09/01/2024 8:30 AM EST Office Visit Gynecology/Obstetics [place] [address] [place] [phone] Erica Saucedo PA-C [address] [place] [address] PMB (postmenopausal bleeding)*; Free fluid in pelvis; Adnexal cyst Allergies Active Allergy Reactions Criticality Noted Date Comments Empagliflozin 08/14/2024 Muscle cramps. Not to be prescribed per nephrology. Metolazone 07/16/2023 Severe Electrolyte imbalance needing Hospital admission Morphine Sulfate Nausea/vomiting 04/26/2009 documented as of this encounter (statuses as of 09/01/2024) Medications analgesic balm (BLAINE JENNINGS) 15% OINTIndications:Kn ee [...] at 100mL/hr. 200 mL 04/27/20 22 Active ProAir HFA 108 (90 Base) MCG/ACT Inhalation Aerosol SolutionIndication s:Moderate persistent asthma without complication Inhale 2 Puffs by mouth in the morning and 2 Puffs at noon and 2 Puffs in the evening and 2 Puffs before bedtime. 18 g 3 3 1:42 PM EDT 02/10/20 23 Active Docusate Sodium 100 MG Oral Capsule (Colace)Indication s:Constipation, unspecified constipation type Take 1 Capsule by mouth 2 times a day as needed. Active Methyl Hajghhelnl-Gmwr-Il nthol 2-4-1 % External Patch 2 times a day. 02/26/20 23 Active Unifine Pentips 31G X 8 MM (Insulin Pen Needle)Indications :DM type 2, not at goal (HCC) use 4 times daily as directed (Novolog & Lantus) 400 Each 3 4 1:12 PM EST 04/27/20 23 Active Insulin Glargine Solostar 100 UNIT/ML Subcutaneous Solution Pen-injector (Lantus SoloStar)Indicatio ns:DM type 2, not at goal (HCC) INJECT 25 units UNDER THE SKIN daily in the morning 30 mL 3 4 6:38 AM EDT 04/27/20 23 Active Additional Information Patient taking differently: 22 Units Subcutaneous Daily(AM), INJECT 21 units UNDER THE SKIN daily in the morning, Reported on 08/18/2024 NovoLOG FlexPen 100 UNIT/ML Subcutaneous Solution Pen-injector (insulin aspart)Indications :Type 2 diabetes mellitus with stage 4 chronic kidney disease, unspecified whether halfway insulin use (HCC) Inject 5 Units under the skin in the morning and 5 Units at noon and 5 Units in the evening. Inject with meals. 15 mL 3 4 2:17 PM EDT 04/27/20 23 Active Additional Information Patient taking differently:5 Units SubcutaneousBID(Non-Specified), Reported on 08/18/2024 Multivitamin Adult Oral Tablet Take 1 Tablet by mouth in the morning. Active Pantoprazole Sodium 20 MG Oral Tablet Delayed Release (Protonix) Take 1 Tablet by mouth 2 times a day with morning and evening meals. 180 Tablet 1 5 2:50 PM EST 01/14/20 24 Active rOPINIRole HCl 0.25 MG Oral Tablet (Requip)Indication s:RLS (restless legs syndrome) Take 1 Tablet by mouth at bedtime. 90 Tablet 3 5 2:50 PM EST 03/23/20 24 Active Diclofenac Sodium 1 % External Gel (Voltaren) Apply topically to back of knees 2 times a day. 400 g 6 03/23/20 24 Active Rosuvastatin Calcium 5 MG Oral Tablet (Crestor)Indicatio ns:Hyperlipidemia, unspecified hyperlipidemia type Take 1 Tablet by mouth in the morning. 90 Tablet 3 5 2:50 PM EST 03/23/20 24 Active Eliquis 5 MG Oral Tablet Take by 1 tablet by mouth every 12 hours 200 Tablet 1 5 11:09 AM EST 07/29/19 25 Active OneTouch Delica Plus [id number] USE TWICE DAILY DIRECTED 200 Each 3 5 10:34 AM EST 07/29/19 25 Active OneTouch Verio In Vitro Strip (Glucose Blood) USE DIRECTED TWO TIMES A DAY 200 Strip 3 5 10:34 AM EST 07/29/19 25 Active traMADol HCl 50 MG Oral Tablet (Ultram)Indication s:Chronic thoracic back pain, unspecified back pain laterality TAKE 1 TABLET BY MOUTH EVERY 6 HOURS NEEDED FOR MODERATE PAIN 30 Tablet 08/02/19 25 Active Spironolactone 50 MG Oral Tablet (Aldactone)Indicat ions:Chronic kidney disease, stage 3b (HCC) Take 1 tablet every morning 08/11/19 25 Active Furosemide 80 MG Oral Tablet (Lasix) Take one tablet every morning 08/11/19 25 Active Benzonatate 100 MG Oral CapsuleIndications :Upper respiratory tract infection, unspecified type Take 1 Capsule by mouth 3 times a day as needed for Cough. 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, with long-term current use of insulin 08/18/2024 History of pulmonary embolism 08/17/2024 Overview (08/17/2024): 04/11/24 Pulmonary note Performed 02/2022, [facility] "Extensive bilateral pulmonary emboli with associated subtle embolus at the main pulmonary arteries." Chronic diastolic heart failure 04/13/2023 Chronic kidney disease, stage 3b 01/04/2023 Overview: Per CKD protocol 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 07/30/2022 Portal hypertension 07/30/2022 Type 2 diabetes mellitus wit h stage 3b chronic kidney disease, with long-term current use of insulin 06/12/2022 Diabetic retinopathy of both eyes 09/06/2019 Hyperlipidemia, unspecified 08/07/2019 Asthma, moderate persistent 06/27/2013 OSTEOARTHROS NOS-L-LEG 09/01/2002 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 09/01/2002 Overview (04/26/2017): ICD-10 update of inactive term documented as of this encounter (statuses as of 09/01/2024) Resolved Problems Problem Noted Date Diagnosed Date Resolved Date Food insecurity 07/05/2023 08/10/2024 Overview: Per [facility] Protocol 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 07/30/2022 04/13/2023 Other pulmonary embolism wit hout acute cor pulmonale 07/30/2022 08/17/2024 Overview (08/17/2024): History 04/11/24 Pulmonary note Performed 02/2022, [facility] "Extensive bilateral pulmonary emboli with associated subtle embolus at the main pulmonary arteries." Decreased platelet count 08/07/2019 Obesity, morbid (more than 1 00 lbs over ideal weight or BMI > 40) 01/07/2010 07/30/2022 Overview (10/14/2015): Per Obesity Protocol, #19 ICD-10 update of inactive term DM type 2, not at goal 04/22/200905/19 ADVANCE DIRECTIVE INFORMATION 01/17/2009 05/29/2024 Overview (01/17/2009): No, Advance Directive brochure given to patient. Asthma with severity to be determined 05/10/2000 06/27/2013 Overview (11/04/2015): ICD-10 update of inactive term documented as of this encounter (statuses as of 09/01/2024) Immunizations Name Administration Dates Next Due COVID-19 mRNA, LNP-s, No Pre serve, 2-Dose Series (Conversocial) 11/29/2020,11/08/2020 Covid-19, Mrna, Lnp-s, Pf, B ivalent, 30 Mcg, IM, 12 yrs and above (Pfizer) 08/10/2022 H1N1 2009 Influenza, IM 11/04/2009 Hepatitis B, 20+ yrs 07/13/2013,06/08/2013 Pneumococcal Conjugate Vacci ne, 20-valent ([id number]) 02/15/2023 Pneumococcal Polysaccharide PPV23 (Pneumovax) 04/26/2009 Seasonal Influenza Vac., MDV , IM, 0.5 mL (Fluzone) 05/16/2014,10/20/2012,07/14/2011,07/24,06/06/2009 Seasonal Influenza, MDCK, Tr ivalent, PF, (Flucelvax) 06/08/2013 Seasonal Influenza, PF, 6 M & above, IM , (FluLaval or Fluzone) 04/13/2023,05/29/2022,06/03/2021,05/03,05/10/2018 Seasonal Influenza, Quadriva lent, No Preserve, IM 04/06/2017 Seasonal Influenza, Trivalen t, (IIV3), PF, (Fluzone) 04/11/2024 TDAP (age 10 and older)(Boostrix) 06/12/2022 TDAP, [...] Answer Date Recorded PHQ Adult Total Score 1 07/17/2024 Hunger Vital Sign Answer Date Recorded Within the past 12 months, y ou worried that your food would run out before you got the money to buy more. Never true 08/01/19 25 Within the past 12 months, t he food you bought just didn't last and you didn't have money to get more. Never true 08/01/2024 Childcare Answer Date Recorded Do you feel overwhelmed with taking care of a child, family member or friend? No 08/01/2024 Does your family need help f inding childcare? (Household - for ages 0-17 years) Not on file 08/01/2024 Clothing Answer Date Recorded Have you been unable to get clothing when it was really needed? No 08/01/2024 Is your family able to get c lothes or diapers when needed? (Household - for ages 0-17 years) Not on file 08/01/2024 Personal Safety Answer Date Recorded Do you feel unsafe or have concerns for your saf ety? No 08/01/2024 Do you have concerns for you r family's safety? (Household - for ages 0-17 years) Not on file 08/01/2024 Utilities Answer Date Recorded Do you have trouble paying y our heating, water, or electric bill? No 08/01/2024 Is your family able to pay t he heat, water, or electric bill? (Household - for ages 0-17 years) Not on file 08/01/2024 Does your family have access to good internet? (Household - for ages 0-17 years) Not on file 08/01/2024 Employment Status Answer Date Recorded Are you unemployed or without regular income? No 08/01/2024 Does the household have a re lar source of income? (Household - for ages 0-17 years) Not on file 08/01/2024 Social Connections Answer Date Recorded How often do you feel lonely or isolated from those around you? Sometimes 08/01/2024 Financial Resource Strain Answer Date R ecorded Do you have any trouble payi ng for your medications, or do you think you might in the future? Yes 08/01/2024 Does your family have troubl e paying for medicine? (Household - for ages 0-17 years) Not on file 08/01/2024 Transportation Needs Answer Date Record ed Do you have trouble getting a ride to medical visits or work? (Adult - for ages 18 years and over) Not on file 08/01/2024 Does your family have a hard time getting a ride to doctors visits? (Household - for ages 0-17 years) Not on file 08/01/2024 Has lack of transportation k ept you from medical appointments, meetings, work, or from getting things needed for daily living? Check all that apply. No 08/01/2024 Do you (or your family) have trouble finding or paying for a ride (transportation)? (Household - for ages 0-17 years) Not on file 08/01/2024 Housing Stability Answer Date Recorded Do you currently live in a s helter or have no steady place to sleep at night? No 08/01/2024 Do you think you are at risk of becoming homeless? (Adult - for ages 18 years and over) Not on file 08/01/2024 Does your family worry about paying for your home or becoming homeless? (Household - for ages 0-17 years) Not on file 0 08/01/2024 Are you homeless or worried that you might be in the future? No 08/01/2024 Are you (or your family) mynor eless or worried that you might be in the future? (Household - for ages 0-17 years) Not on file Food Insecurity Answer Date Recorded Do you need food for this week? No 08/01/2024 Are you able to get enough f ood for your family? (Household - for ages 0-17 years) Not on file 08/01/2024 Does your family need food t his week? (Household - for ages 0-17 years) Not on file 08/01/2024 Do you always have enough fo od for your family? (Household - for ages 0-17 years) Not on file 08/01/2024 Food Insecurity Answer Date Recorded Within the past 12 months, y ou worried that your food would run out before you got the money to buy more. Never true 08/01/19 25 Within the past 12 months, t he food you bought just didn't last and you didn't have money to get more. Never true 08/01/2024 Do you need food for this week? No 08/01/2024 Comments No Sex and Gender Information Value Date Recorded Sex Assigned at Female 02/21/2022 9:08 PM EDT Legal Sex Female 6:02 AM EST Gender Identity Female 02/21/2022 9:08 PM EDT Sexual Orientation Straight 02/21/2022 9: 08 PM EDT documented as of this encounter Last Filed Vital Signs Vital Sign Reading Time Taken Comments Blood Pressure 128/78 09/01/2024 8:16 AM EST Pulse - - Temperature - - Respiratory Rate - - Oxygen Saturation - - Inhaled Oxygen Concentration - - Weight 96.6 kg (213 lb) 09/01/2024 8:16 AM EST Height - - Body Mass Index 37.14 04/11/2024 11:40 AM EDT documented in this encounter Progress Notes * Erica Saucedo PA-C - 09/01/2024 8:17 AM EST Chief Complaint: The patient is a 64 year old G0 female here for postmenopausal vaginal bleeding and left lower abdominal pain. History of Present Illness: Patient reports that she had postmenopausal brownish vaginal spotting that started about 3 weeks ago. Last vaginal spotting was 3 weeks ago. 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 Patient reports that vaginal spotting was only everyfew days when it was occurring. Patient reports that she then developed a sharp left lower abdominal pain. Patient reports that the pain does not radiate. Patient has not had this sharp pain for the last few days. Last menstrual period prior to this vaginal spotting was at age 28. 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 Patient had to be hospitalized for this in the past. Patient has some weight changes with the fluid retention. Patient reports that last period prior to this was age 28. Last pap smear: Normal, HPV negative in 04/2023. No history of abnormal pap smears. Normal mammogram in 07/2024. Medications: Current Outpatient Medications Medication Sig Dispense Refill analgesic balm (BLAINE JENNINGS) 15% OINT twice daily as needed (STOP PAIN) 1 Tube 11 iCapital NetworkTouch Verio w/Device Kit Use up to 4 times a day E11.9 1 Kit 0 Albumin Human 25 % Intravenous Solution Infuse 25g albumin pre paracentesis. If fluid removed is >5L, please infuse 25g post paracentesis. Run at 100mL/hr. 200 mL 0 ProAir HFA 108 (90 Base) MCG/ACT Inhalation Aerosol Solution Inhale 2 Puffs by mouth in the morningand 2 Puffs at noon and 2 Puffs in the evening and 2 Puffs before bedtime. 18 g 3 Docusate Sodium 100 MG Oral Capsule (Colace) Take 1 Capsule by mouth 2 times a day as needed. Methyl Hmtlokcuea-Uphp-Mygdlob 2-4-1 % External Patch 2 times a day. Unifine Pentips 31G X 8 MM (Insulin Pen Needle) use 4 times daily as directed (Novolog & Lantus) 400 Each 3 Insulin Glargine Solostar 100 UNIT/ML Subcutaneous Solution Pen-injector (Lantus SoloStar) INJECT 25 units UNDER THE SKIN daily in the morning (Patient taking differently: Inject 22 Units under the skin in the morning. INJECT 21 units UNDER THE SKIN daily in the morning.) 30 mL 3 NovoLOG FlexPen 100 UNIT/ML Subcutaneous Solution Pen-injector (insulin aspart) Inject 5 Units under the skin in the morning and 5 Units at noon and 5 Units in the evening. Inject with meals. (Patient taking differently: Inject 5 Units under the skin 2 times a day.) 15 mL 3 Multivitamin Adult Oral Tablet Take 1 Tablet by mouth in the morning. Pantoprazole Sodium 20 MG Oral Tablet Delayed Release (Protonix) Take 1 Tablet by mouth 2 times a day with morning and evening meals. 180 Tablet 1 rOPINIRole HCl 0.25 MG Oral Tablet (Requip) Take 1 Tablet by mouth at bedtime. 90 Tablet 3 Diclofenac Sodium 1 % External Gel (Voltaren) Apply topically to back of knees 2 times a day. 400 g6 Rosuvastatin Calcium 5 MG Oral Tablet (Crestor) Take 1 Tablet by mouth in the morning. 90 Tablet 3 Eliquis 5 MG Oral Tablet Take by 1 tablet by mouth every 12 hours 200 Tablet 1 OneTouch Delica Plus [id number] USE TWICE DAILY DIRECTED 200 Each 3 OneTouch Verio In Vitro Strip (Glucose Blood) USE DIRECTED TWO TIMES A DAY 200 Strip 3 traMADol HCl 50 MG Oral Tablet (Ultram) TAKE 1 TABLET BY MOUTH EVERY 6 HOURS NEEDED FOR MODERATEPAIN 30 Tablet 0 Spironolactone 50 MG Oral Tablet (Aldactone) Take 1 tablet every morning Furosemide 80 MG Oral Tablet (Lasix) Take one tablet every morning Benzonatate 100 MG Oral Capsule Take 1 Capsule by mouth 3 times a day as needed for Cough. 30 Capsule 1 No current facility-administered medications for this visit. Allergies: Review of patient's allergies indicates: Allergen Reactions Jardiance [Empagliflozin] Muscle cramps. Not to be prescribed per nephrology. Metolazone Severe Electrolyte imbalance needing Hospital admission Morphine Sulfate Nausea/vomiting Past Medical History: Diagnosis Date Asthma Diabetes mellitus ([facility]) Diabetic eye exam ([facility]) 07/09/2012 no retinopathy Morbid obesity, BMI not known ([facility]) Other pulmonary embolism without acute cor pulmonale ([facility]) 07/30/2022 History 04/11/24 Pulmonary note Performed 02/2022, [facility] "Extensive bilateral pulmonary emboli with associated subtle embolus at the main pulmonary arteries." Rheumatic fever 1976 Past Surgical History: Procedure Laterality Date COLONOSCOPY, DIAGNOSTIC (RECTUM) 06/05/2022 normal scope/ no specimens collected / 10 year recall / COLONOSCOPY FLEXIBLE PROXIMAL DIAGNOSTIC performed by Deidra Mace MD at END[facility] EGD, FLEXIBLE, DIAGNOSTIC N/A 02/26/2023 portal hypertensive gastropathy/non-bleeding gastric ulcers/biopsies show mild irritation of stomach/EGD/[place] LAPAROSCOPY; CHOLECYSTECTOMY Dr Wilkes MAMMOGRAM SCREENING BILATERAL 06/03/2010 cat. 2, repeat in 12mths US GUIDED BREAST BIOPSY LEFT Left 06/30/2022 benign Review of Systems: Positive for weight changes. Positive for left lower abdominal pain, but not currently. Positive for vaginal spotting. Positive for passing gas often. Positive for constipation. Denies blood in stools. Denies dysuria. Positive urinary frequency due to her medications. OBJECTIVE: BP 128/78 | Wt 96.6 kg (213 lb) | BMI 37.14 kg/m | BSA 2.08 m General: awake, alert, and oriented x 3, normal affect, no acute distress ASSESSMENT/PLAN: PMB (postmenopausal bleeding) (Primary) - MRI PELVIS WO CONTRAST; Future; Expected date: 09/01/2024 Counseled patient that I would advise biopsy of the lining of the uterus to check for any abnormal cells of the lining of the uterus (checking for abnormalities like pre-cancer/cancer). Patient verbalized understanding. Patient declines endometrial biopsy in the office. Patient would like anesthesia for this procedure. Patient scheduled for surgical consultation with Dr. Alanis. Answered patient's questions. Free fluid in pelvis - MRI PELVIS WO CONTRAST; Future; Expected date: 09/01/2024 Recommended MRI of the pelvis, patient agreeable. Opted for MRI of the pelvis without contrast due to impaired kidney function. Patient agreeable to this plan. Adnexal cyst - MRI PELVIS WO CONTRAST; Future; Expected date: 09/01/2024 Return to the office for first available surgical consultation with PANTOGRAPH I ENGRAVER physician or sooner if any concerns. 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 She had a recent ultrasound. documented in this encounter Plan of Treatment Upcoming Encounters Date Type Department Care Team (Late st Contact Info) Description 09/05/2024 2:20 PM EST Office Visit [facility], [facility] [address] [place] [address] Deidra Mcae MD [address] [place] [phone] 09/13/2024 10:00 AM EST Office Visit Gynecology/Obstetrics [facility] [address] [place] [address] Tim Alanis MD [address] [place] [address] 09/14/2024 2:20 PM EST Office Visit [facility] [address] [place] [address] Cali Brown MD [address] [facility] [place] [address] 03/07/2025 2:40 PM EDT Office Visit [facility] [address] [place] [address] Cali Brown MD [address] [facility] [place] [address] Scheduled Orders Name Type Priority Associated Diagnoses Orde r Schedule MRI PELVIS WO CONTRAST Medical Imaging Routine PMB (postmenopausal bleeding) Free fluid in pelvis Adnexal cyst Expected: 09/01/2024 (Approximate), Expires: 09/29/2025 Scheduled Procedures Name Priority Associated Diagnoses Date/Ti me COLONOSCOPY FLEXIBLE PROXIMAL DIAGNOSTIC Recall Screen for colon cancer Health Maintenance Due Date Last Done Comments Fecal Occult Blood Test 2007 Sigmoidoscopy 2007 Hepatitis B Vaccine (3 of 3 - Risk 3-dose series) 12/06/2013 07/13/2013, 06/08/2013 Cologuard 05/03/2022 05/03/2019 COVID-19 Vaccine ( season) 2024 08/10/2022, 11/29/2020, 11/08/2020 Diabetic Foot Exam 05/19/2024 05/19/2023, 1 , 02/25/2017, Additional history exists HbA1c 01/12/2025 07/14/2024, 04/26, 02/15/2023, Additional history exists Diabetic Eye Exam 01/17/2025 01/18/2024, , 12/13/2023, Additional history exists GFR 02/20/2025 08/23/2024, 07/26, 07/14/2024, Additional history exists Depression Screening 07/17/2025 07/17/2024 Mammogram 08/04/2025 08/04/2024, 07/26, 06/17/2022, Additional history exists Albumin/Creatinine Ratio 08/11/2025 025, 02/16/2023, 01/27/2022, Additional history exists CKD HGB USE SMARTSET 00783 08/11/202508/11, 08/11/2024, 07/14/2024, Additional history exists CKD PHOS USE SMARTSET 83766 08/23/202507/27, 08/11/2024, 07/14/2024, Additional history exists Pap Smear 05/19/2026 05/19/2023, 05/31/2009 Lipid Panel 08/03/2027 08/03/2022, 02/23, 11/15/2018, Additional history exists Cervical Cancer Screening 05/19/2028 HPV/Co-Test 05/19/2028 05/19/2023 Colonoscopy 06/05/2032 06/05/2022, 06/05/2022 Colorectal Cancer Screening 06/05/2032 DTap/Tdap Vaccines (3 - Td or Tdap) 06/12/2032 06/12/2022, 07/14/2011, 06/02/2003 Zoster Vaccines Completed 10/26/2022, 06/12/2022 Pneumococcal Vaccine: 50+ Years Completed 02/15/2023, 04/26/2009 Influenza Vaccine (FLU shot) Completed , 04/13/2023, 05/29/2022, Additional history exists HPV (Gardasil) Vaccine Aged Out No lo nger eligible based on patient's age to complete this topic MENINGOCOCCAL (MENACTRA/MENVEO) Aged Out No longer eligible based on patient's age to complete this topic documented as of this encounter Medical Devices Not on filedocumented as of this encounter Visit Diagnoses Diagnosis PMB (postmenopausal bleeding)- Primary Postmenopausal bleeding Free fluid in pelvis Adnexal cyst Other specified symptom associated with female genital organs documented in this encounter Additional Health Concerns Infection Onset Date Last Indicated Resolved Time SARS-CoV-2 (COVID-19) 08/18/2024 08/18/2024 documented as of this encounter Care Teams Valuation Manager Relationship Specialty Start Date End Date Alicia October DIONICIO Mott [address] [place] [address] PCP - General Physician Sandwich Maker 08/03/24 documented as of this encounter
--- OUTSIDE RECORDS SUMMARY | 2024-09-03 12:11 | External Medical Summary | Summary of Care ---
Author Name Unknown Organization [facility] Address [address] [place] [address] Phone [phone] Care Team Providers Care Ingot Buggy Operator Name Role Phone Lani Vargas PA-C Primary Care Provider [phone] Reason for Visit * Reason Onset Date Comments Test Results 08/23/2024 Unexpected or In determinate Result Encounter Details Date Type Department Care Team (Late st Contact Info) Description 08/23/2024 Telephone Laboratory, [place] [address] [place] [address] Jonathan Rees III, MD [address] [place] [address] Test Results (Unexpected or Indeterminate ... Allergies Active Allergy Reactions Criticality Noted Date Comments Empagliflozin 08/14/2024 Muscle cramps. Not to be prescribed per nephrology. Metolazone 07/16/2023 Severe Electrolyte imbalance needing Hospital admission Morphine Sulfate Nausea/vomiting 04/26/2009 documented as of this encounter (statuses as of 08/25/2024) Medications analgesic balm (BLAINE JENNINGS) 15% OINTIndications:Kn [...] times a day as needed. 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, with long-term current use of insulin 08/18/2024 History of pulmonary embolism 08/17/2024 Overview (08/17/2024): 04/11/24 Pulmonary note Performed 02/2022, [facility] "Extensive bilateral pulmonary emboli with associated subtle [...] as of this encounter (statuses as of 08/25/2024) Resolved Problems Problem Noted Date Diagnosed Date Resolved Date Food insecurity 07/05/2023 08/10/2024 Overview: Per [facility] Protocol 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 07/30/2022 04/13/2023 Other pulmonary embolism wit hout acute cor pulmonale 07/30/2022 08/17/2024 Overview (08/17/2024): History 04/11/24 Pulmonary note Performed 02/2022, [facility] "Extensive bilateral pulmonary emboli with associated subtle [...] as of this encounter (statuses as of 08/25/2024) Immunizations Name Administration Dates Next Due COVID-19 mRNA, LNP-s, No Pre serve, 2-Dose Series (Pfizer) 11/29/2020,11/08/2020 Covid-19, Mrna, Lnp-s, Pf, B ivalent, 30 Mcg, IM, 12 yrs and above (Pfizer) 08/10/2022 H1N1 2009 Influenza, IM 11/04/2009 Hepatitis B, 20+ yrs 07/13/2013,06/08/2013 Pneumococcal Conjugate Vacci ne, 20-valent ([id number]) 02/15/2023 Pneumococcal Polysaccharide PPV23 (Pneumovax) 04/26/2009 Seasonal [...] 08/01/2024 Does the household have a re gular [...] ages 0-17 years) Not on file 08/01/2024 Comments No Sex and Gender Information Value Date Recorded Sex Assigned at Female 02/21/2022 9:08 PM EDT Legal Sex Female 6:02 AM EST Gender Identity Female 02/21/2022 9:08 PM EDT Sexual Orientation Straight 02/21/2022 9: 08 PM EDT documented as of this encounter Miscellaneous Notes * Telephone Encounter - Africa Pineda LPN - 08/25/2024 2:46 PM EST Please advise what to tell patient. * Telephone Encounter - Bethel Ramírez OSA - 08/23/2024 9:43 PM EST Hello- The radiologist discovered an unexpected or indeterminate finding on Saida Giron ([id number]) and asks that you review the following report. Study Type:US PELVIS TRANS-VAGINAL NON-OB Date of Study: 08/23/2024 IMPRESSION: 1. Heterogenous endometrium with cystic changes measuring 5.7 mm in thickness. Differential considerations would include endometrial hyperplasia, blood clots and neoplasm. In view of postmenopausal bleeding consider further assessment with endometrial sampling. 2. Cystic changes in the left adnexa. The left ovary is not identified separate from the cystic changes and the findings could represent a multi septated cystic ovarian lesion. Differential consideration would include a dilated fallopian 2 or a peritoneal inclusion cyst. Moderate amount of fluid inthe pelvis which is a nonspecific finding and could be related to known cirrhosis. Mild complexity of the fluid could be related to superimposed infection or hemorrhagic nature of the fluid. Considerfurther assessment with dedicated MRI of the pelvis without and with contrast. 3. Details as above. Please respond to this encounter to acknowledge receipt of this message and take responsibility to ensure this report is reviewed. Thank you, ANEL Padilla Client Service [facility] Medicine [place] documented in this encounter Plan of Treatment Upcoming Encounters Date Type Department Care Team (Late st Contact Info) Description 09/01/2024 8:30 AM EST Office Visit [facility]ne[facility]stetics [facility] [phone] Erica Saucedo PA-C [facility] [place] [address] 09/05/2024 2:20 PM EST Office Visit Hepatology, [facility] [address] [place] [address] Deidra Mace MD [address] [place] [address] 09/14/2024 2:20 PM EST Office Visit Nephrology [facility] [place] [address] Cali Brown MD [address] [facility] [place] [address] 03/07/2025 2:40 PM EDT Office Visit Nephrology, [facility] [address] [facility] [place] [address] Cali Brown MD 200 [facility] [place] [address] Scheduled Procedures Name Priority Associated Diagnoses Date/Ti [...] Additional history exists CKD HGB USE SMARTSET 13248 08/11/202508/11, 08/11/2024, 07/14/2024, Additional history exists CKD PHOS USE SMARTSET 64417 08/23/202507/27, 08/11/2024, 07/14/2024, Additional history exists Pap [...] Not on filedocumented as of this encounter Additional Health Concerns Infection Onset Date Last Indicated Resolved Time SARS-CoV-2 (COVID-19) 08/18/2024 08/18/2024 documented as of this encounter Care Teams Ingot Buggy Operator Relationship Specialty Start Date End Date Lani Vargas PA-C 200 [facility] [place] [address] PCP - General Physician Claim Agent 08/03/24 documented as of this encounter
--- OUTSIDE RECORDS SUMMARY | 2024-09-03 12:12 | External Medical Summary | Summary of Care ---
Author Name Unknown Organization [facility] Address [address] [place] [address] Phone [phone] Care Team Providers Care Tire Molder Name Role Phone Lani Vargas PA-C Primary Care Provider [phone] Reason for Visit * Reason Onset Date Comments Test Results 08/23/2024 Unexpected or In determinate Result Encounter Details Date Type Department Care Team (Late st Contact Info) Description 08/23/2024 Telephone Laboratory, [place] [address] [place] [address] Jonathan Rees III, MD [address] [place] [address] Test Results (Unexpected or Indeterminate ... Allergies [...] times a day as needed. Active Methyl Wyyvjmxxjs-Wtou-Ud nthol 2-4-1 % External Patch 2 times [...] stage 4 chronic kidney disease, unspecified whether board mill supervisor insulin use (HCC) Inject 5 Units [...] EST 07/29/19 25 Active OneTouch Delica Plus Secouo16F USE TWICE DAILY DIRECTED 200 Each 3 [...] (08/17/2024): 04/11/24 Pulmonary note Performed 02/2022, [facility] "Extensive bilateral pulmonary emboli with associated subtle [...] History 04/11/24 Pulmonary note Performed 02/2022, [facility] "Extensive bilateral pulmonary emboli with associated subtle [...] yrs 07/13/2013,06/08/2013 Pneumococcal Conjugate Vacci ne, 20-valent (Thqbpxf35) 02/15/2023 Pneumococcal Polysaccharide PPV23 (Pneumovax) 04/26/2009 Seasonal [...] encounter Miscellaneous Notes * Telephone Encounter - Bethel Ramírez OSA - 08/23/2024 9:43 PM EST [place]- The radiologist discovered an unexpected or indeterminate finding on Saida Giron ([id number]) and asks that you review the following [...] reviewed. Thank you, ANEL Padilla Client Service Rep [facility] documented in this encounter Plan of Treatment Upcoming Encounters Date Type Department Care Team (Late st Contact Info) Description 09/05/2024 2:20 PM EST Office Visit Hepatology, [address] [place] [address] Deidra Mace MD [address] [facility] [place] [address] 09/14/2024 2:20 PM EST Office Visit Nephrology, [place] 200 [facility] [place] [address] Cali Brown MD 200 [place] [address] 02/26/2025 2:30 PM EDT Office Visit Gynecology/Obstetrics [facility] 132 [place] [address] Francesca Rojas PA-C [address] [place] [address] 03/07/2025 2:40 PM EDT Office Visit Nephrology, [place] [address] [place] [address] Cali Brown MD 200 [facility] [place] [address] Scheduled Procedures Name Priority Associated Diagnoses Date/Ti [...] Additional history exists CKD HGB USE SMARTSET 97701 08/11/202508/11, 08/11/2024, 07/14/2024, Additional history exists CKD PHOS USE SMARTSET 16499 08/23/202507/27, 08/11/2024, 07/14/2024, Additional history exists Pap [...] documented as of this encounter Care Teams Tire Molder Relationship Specialty Start Date End Date AliciaOctober DIONICIO Mott [address] [place] [address] PCP - General Physician Sliver Machine Operator 08/03/24 documented as of this encounter
--- OUTSIDE RECORDS SUMMARY | 2024-09-03 12:12 | External Medical Summary ---
Author Name Unknown Address Unknown Organization [id number]:LABORATORY [facility] - [address] [place] [address] Laboratory Report Ordering Provider Test Date Status MORRO RAMÍREZ 08/23/2024 09:50:53 Final Observation Date Value Abnormality Reference (Units ) Status MYCODE SPECIMEN-SST 08/23/2024 09:50:53 Freezing of extracted DNA, whole blood and/or serum. Final Performing Location LABORATORY [facility] - [address] [place] [address]
--- OUTSIDE RECORDS SUMMARY | 2024-09-03 12:12 | External Medical Summary | Summary of Care ---
Author Name Unknown Organization [facility] Address [address] [place] [address] Phone [phone] Care Team Providers Care Pattern Layout Worker Name Role Phone Lani Vargas PA-C Primary Care Provider [phone] Reason for Visit * Reason Onset Date Comments Test Results 08/23/2024 Unexpected or In determinate Result Encounter Details Date Type Department Care Team (Late st Contact Info) Description 08/23/2024 Telephone Laboratory, [place] [address] [place] [address] Jonathan Rees III, MD [address] [place] [address] Test Results (Unexpected or Indeterminate ... Allergies [...] times a day as needed. Active Methyl Igifzmtvti-Ircy-Gx nthol 2-4-1 % External Patch 2 times [...] EST 07/29/19 25 Active OneTouch Delica Plus Ealtqw17W USE TWICE DAILY DIRECTED 200 Each 3 [...] (08/17/2024): 04/11/24 Pulmonary note Performed 02/2022, [facility] "Extensive bilateral pulmonary emboli with associated subtle [...] History 04/11/24 Pulmonary note Performed 02/2022, [facility] "Extensive bilateral pulmonary emboli with associated subtle [...] yrs 07/13/2013,06/08/2013 Pneumococcal Conjugate Vacci ne, 20-valent (Raxgeno08) 02/15/2023 Pneumococcal Polysaccharide PPV23 (Pneumovax) 04/26/2009 Seasonal [...] unexpected or indeterminate finding on Saida Giron ([id number]) and asks that you review the following [...] Thank you, ANEL Padilla Client Service Rep [facility] documented in this encounter Plan of Treatment Upcoming Encounters Date Type Department Care Team (Late st Contact Info) Description 09/05/2024 2:20 PM EST Office Visit Hepatology, [address] [place] [address] Deidra Mace MD [address] [facility] [place] [address] 09/14/2024 2:20 PM EST Office Visit Nephrology, [place] 200 [facility] [place] [address] Cali Brown MD 200 [facility] [place] [address] 02/26/2025 2:30 PM EDT Office Visit Gynecology/Obstetrics [facility] 132 [place] [address] Francesca Rojas PA-C [address] [place] [address] 03/07/2025 2:40 PM EDT Office Visit Nephrology, [place] [address] [place] [address] Cali Brown MD 200 [facility] [place] [address] Scheduled Procedures Name Priority Associated Diagnoses Date/Ti [...] Additional history exists CKD HGB USE SMARTSET 98794 08/11/202508/11, 08/11/2024, 07/14/2024, Additional history exists CKD PHOS USE SMARTSET 92619 08/23/202507/27, 08/11/2024, 07/14/2024, Additional history exists Pap [...] documented as of this encounter Care Teams Pattern Layout Worker Relationship Specialty Start Date End Date AliciaOctober DIONICIO Mott [address] [place] [address] PCP - General Physician Hydro Excavation Operator 08/03/24 documented as of this encounter
--- OUTSIDE RECORDS SUMMARY | 2024-09-03 12:12 | External Medical Summary | Summary of Care ---
Author Name Unknown Organization [facility] Address [address] [place] [address] Phone [phone] Care Team Providers Care Human Resources Manager Name Role Phone Lani Vargas PA-C Primary Care Provider [phone] Reason for Visit * Reason Onset Date Comments Test Results 08/23/2024 Unexpected or In determinate Result Encounter Details Date Type Department Care Team (Late st Contact Info) Description 08/23/2024 Telephone Laboratory, [place] [address] [place] [address] Jonathan Rees III, MD 200 [place] [address] Test Results (Unexpected or Indeterminate ... Allergies [...] times a day as needed. Active Methyl Ywssvazsbp-Tvpn-Kr nthol 2-4-1 % External Patch 2 times [...] 4 chronic kidney disease, unspecified whether terminal carman insulin use (HCC) Inject 5 Units under [...] EST 07/29/19 25 Active OneTouch Delica Plus Wttvjw52Q USE TWICE DAILY DIRECTED 200 Each 3 [...] (08/17/2024): 04/11/24 Pulmonary note Performed 02/2022, [facility] "Extensive bilateral pulmonary emboli with associated subtle [...] History 04/11/24 Pulmonary note Performed 02/2022, [facility] "Extensive bilateral pulmonary emboli with associated subtle [...] yrs 07/13/2013,06/08/2013 Pneumococcal Conjugate Vacci ne, 20-valent ([id number]) 02/15/2023 Pneumococcal Polysaccharide PPV23 (Pneumovax) 04/26/2009 Seasonal [...] unexpected or indeterminate finding on Saida Giron ([id number]) and asks that you review the following [...] reviewed. Thank you, ANEL Padilla Client Service [facility] Medicine [place] documented in this encounter Plan of Treatment Upcoming Encounters Date Type Department Care Team (Late st Contact Info) Description 09/01/2024 8:30 AM EST Office Visit Gynecology/Obstetics [place] [facility] [place] [phone] Erica Saucedo PA-C [facility] [address] 09/05/2024 2:20 PM EST Office Visit Hepatology, [facility] [address] [place] [address] Deidra Mace MD [address] [place] [address] 09/14/2024 2:20 PM EST Office Visit Nephrology [facility] 200 [facility] [place] [address] Cali Brown MD 200 [facility] [place] [address] 03/07/2025 2:40 PM EDT Office Visit Nephrology, [facility] 200 [facility] [place] [address] Cali Brown MD 200 [facility] [place] [address] Scheduled Procedures Name Priority Associated Diagnoses Date/Ti [...] Additional history exists CKD HGB USE SMARTSET 59377 08/11/202508/11, 08/11/2024, 07/14/2024, Additional history exists CKD PHOS USE SMARTSET 17475 08/23/202507/27, 08/11/2024, 07/14/2024, Additional history exists Pap [...] documented as of this encounter Care Teams Human Resources Manager Relationship Specialty Start Date End Date Lani Vargas PA-C 200 [facility] [place] [address] PCP - General Physician International Sales Representative 08/03/24 documented as of this encounter
--- OUTSIDE RECORDS SUMMARY | 2024-09-03 12:12 | External Medical Summary | Summary of Care ---
Author Name Unknown Organization [facility] Address [address] [facility] [facility] [address] Phone [phone] Care Team Providers Care Silhouette Artist Name Role Phone Lani Vargas PA-C Primary Care Provider [phone] Reason for Visit * Reason Onset Date Comments Test Results Lab 08/25/2024 Patient made aw are that provider has to review findings and will reach out once reviewed. Encounter Details Date Type Department Care Team (Late st Contact Info) Description 08/25/2024 Telephone Family Practice [facility] 200 [place] [address] Jonathan Rees III, MD 200 [place] [place] [address] Test Results Lab (Patient made aware that ... Allergies Active Allergy Reactions Criticality Noted [...] paracentesis. Run at 100mL/hr. 200 mL 04/27/20 Active ProAir HFA 108 (90 Base) MCG/ACT [...] times a day as needed. Active Methyl Mqaknowlik-Gzvf-Px nthol 2-4-1 % External Patch 2 times [...] EST 07/29/19 25 Active OneTouch Delica Plus Khodlt85Y USE TWICE DAILY DIRECTED 200 Each 3 [...] (08/17/2024): 04/11/24 Pulmonary note Performed 02/2022, [facility] "Extensive bilateral pulmonary emboli with associated [...] History 04/11/24 Pulmonary note Performed 02/2022, [facility] "Extensive bilateral pulmonary emboli with associated [...] yrs 07/13/2013,06/08/2013 Pneumococcal Conjugate Vacci ne, 20-valent (Rdjgzpq71) 02/15/2023 Pneumococcal Polysaccharide PPV23 (Pneumovax) 04/26/2009 Seasonal [...] encounter Miscellaneous Notes * Telephone Encounter - Jonathon Soto CMA - 08/25/2024 2:41 PM EST Spoke with patient today concerning Labs and explained that the provider has to review it and will reach out once reviewed. * Telephone Encounter - Jonathan Rees III, MD - 08/25/2024 11:28 AM EST Attempted to call with ultrasound results and potential much earlier household cook appointment unable to get through could not leave message on home phone mailbox full unclear tried to leave one on cell phone documented in this encounter Plan of Treatment Upcoming Encounters Date Type Department Care Team (Late st Contact Info) Description 09/01/2024 8:30 AM EST Office Visit Gynecology/Obstetics [place] [address] [place] [address] Erica Saucedo PA-C [address] [place] [address] 09/05/2024 2:20 PM EST Office Visit Hepatology, [facility] 132 [place] [address] Deidra Mace MD 310 [facility] [place] [address] 09/14/2024 2:20 PM EST Office Visit Nephrology, [place] [address] [place] [address] Cali Brown MD [address] [place] [address] 03/07/2025 2:40 PM EDT Office Visit [facility] [address] [place] [address] Cali Brown MD [address] [place] [address] Scheduled Procedures Name Priority Associated Diagnoses Date/Ti [...] Additional history exists CKD HGB USE SMARTSET 66272 08/11/202508/11, 08/11/2024, 07/14/2024, Additional history exists CKD PHOS USE SMARTSET 77777 08/23/202507/27, 08/11/2024, 07/14/2024, Additional history exists Pap [...] documented as of this encounter Care Teams Silhouette Artist Relationship Specialty Start Date End Date Alicia October DIONICIO Mott [address] [place] [address] PCP - General Physician Harness Repairer 08/03/24 documented as of this encounter
--- OUTSIDE RECORDS SUMMARY | 2024-09-03 12:12 | External Medical Summary ---
Author Name Unknown Address Unknown Organization K01:LABORATORY [facility] - [facility] [address] [place] [address] Laboratory Report Ordering Provider Test Date Status WILBERT PIÑA 08/23/2024 09:50:53 Final Observation Date Value Abnormality Reference (Units ) Status BUN 08/23/2024 09:50:53 44 Above high normal 6-20 (mg/dL) Final Creatinine 08/23/2024 09:50:53 2.1 Above high normal 0.5-1.0 (mg/dL) Final Glomerular filtration rate/1.73 sq M.predicted [Volume Rate/Area] in Serum, Plasma or Blood by Creatinine-based formula (CKD-EPI) 08/23/2024 09:50:53 26 Below low normal >=60 (mL/min) Final eGFR is calculated based on the CKD-EPI 2020 equation. Sodium 08/23/2024 09:50:53 134 Below low normal 135 -146 (mmol/L) Final Potassium 08/23/2024 09:50:53 4.5 3.5-5.1 (m mol/L) Final Cl 08/23/2024 09:50:53 96 Below low normal 98- 107 (mmol/L) Final CO2 08/23/2024 09:50:53 25 22-32 (mmo l/L) Final Anion gap 08/23/2024 09:50:53 13 7-15 (mmol /L) Final Glucose 08/23/2024 09:50:53 208 Above high normal 70 -120 (mg/dL) Final Calcium 08/23/2024 09:50:53 9.2 8.4-10.2 ( mg/dL) Final Albumin 08/23/2024 09:50:53 3.9 3.8-5.0 (g /dL) Final Phosphate 08/23/2024 09:50:53 2.5 2.5-4.8 (m g/dL) Final Performing Location LABORATORY C - [address] [place] [address]
--- OUTSIDE RECORDS SUMMARY | 2024-09-03 12:12 | External Medical Summary ---
Author Name Unknown Address Unknown Organization K01:LABORATORY [facility] - [address] [place] [address] Laboratory Report Ordering Provider Test Date Status WILBERT PIÑA 08/23/2024 09:50:53 Final Observation Date Value Abnormality Reference (Units ) Status Magnesium 08/23/2024 09:50:53 2.4 1.5-2.6 (m g/dL) Final Performing Location LABORATORY [facility] - [address] [place] [address]
--- OUTSIDE RECORDS SUMMARY | 2024-09-03 12:12 | External Medical Summary | Summary of Care ---
Author Name Unknown Organization [facility] Address [address] [facility] [place] [address] Phone [phone] Care Team Providers Care Exhibition Designer Name Role Phone Lani Vargas PA-C Primary Care Provider [phone] Reason for Visit * Reason Onset Date Comments Follow Up 08/21/2024 ASC call Encounter Details Date Type Department Care Team (Late st Contact Info) Description 08/21/2024 4:15 PM EST Scheduled Telephone Ancillary Scenery [place] [address] [place] [address] [place], Nurse Annual Wellness Scenery [address] [place] [address] Allergies Active Allergy Reactions Criticality Noted Date [...] times a day as needed. Active Methyl Komdqfhhfe-Rvko-Qx nthol 2-4-1 % External Patch 2 times [...] 4 chronic kidney disease, unspecified whether manager intermediate insulin use (HCC) Inject 5 Units under [...] EST 07/29/19 25 Active OneTouch Delica Plus Umrhsu48Z USE TWICE DAILY DIRECTED 200 Each 3 [...] (08/17/2024): 04/11/24 Pulmonary note Performed 02/2022, [facility] "Extensive bilateral pulmonary emboli with [...] History 04/11/24 Pulmonary note Performed 02/2022, [facility] "Extensive bilateral pulmonary emboli with [...] yrs 07/13/2013,06/08/2013 Pneumococcal Conjugate Vacci ne, 20-valent ([id number]) 02/15/2023 Pneumococcal Polysaccharide PPV23 (Pneumovax) 04/26/2009 Seasonal [...] encounter Miscellaneous Notes * Telephone Encounter - Cassie Sellers LPN - 08/24/2024 5:06 PM EST This was routed to me in the [facility] office. She is not our pt. * Telephone Encounter - Missy Alba RN - 08/21/2024 11:28 AM EST RN Lead: Missy Alba RN Date: 08/21/2024 Patient seen for ASC: - Upper respiratory tract infection, unspecified type Connected with patient via phone. Verified patient name/. Assessment Pt. seen: 08/18/24 Treatment plan: Issa ellis Status update: pt feels awful. Body aches, fever, congestion and fatigue. Reviewed OTC options and home remedies. Will reach out to provider from Wednesday to ask if she can take Tylenol for fevers withher liver disease Medication Reconciliation Medication Reconciliation completed: yes Care Team Industrial Hygenist: yes Please let patient know you will be sharing with the CM and they may contact patient for future follow up. Plan for Future Contacts Plan to follow up Keep scheduled appointment Advancement/Closure Plan: Patient provided contact information and encouraged to call CM or clinic directly with any changes in condition. documented in this encounter Plan of Treatment Upcoming Encounters Date Type Department Care Team (Late st Contact Info) Description 09/05/2024 2:20 PM EST Office Visit Hepatology, [facility] 132 [facility] [place] [address] Deidra Mace MD [address] [place] [id number] 09/14/2024 2:20 PM EST Office Visit Nephrology, [place] [address] [place] [address] Cali Brown MD [address] [place] [address] 02/26/2025 2:30 PM EDT Office Visit Gynecology/Obstetrics Haley Diez [address] [place] [address] Francesca Rojas PA-C [address] [place] [address] 03/07/2025 2:40 PM EDT Office Visit Nephrology, [place] [facility] [place] [address] [address] Cali Brown MD [address] [facility] [place] [address] [address] Scheduled Procedures Name Priority Associated Diagnoses Date/Ti [...] Additional history exists CKD HGB USE SMARTSET 90526 08/11/202508/11, 08/11/2024, 07/14/2024, Additional history exists CKD PHOS USE SMARTSET 32734 08/23/202507/27, 08/11/2024, 07/14/2024, Additional history exists Pap [...] documented as of this encounter Care Teams Exhibition Designer Relationship Specialty Start Date End Date Alicia October DIONICIO Mott [address] [place] [address] PCP - General Physician Cad Technician 08/03/24 documented as of this encounter
--- OUTSIDE RECORDS SUMMARY | 2024-09-03 12:12 | External Medical Summary ---
Author Name Unknown Address Unknown Organization K01:[facility] [place] [address] [place] [address] Laboratory Report Ordering Provider Test Date Status MORRO RAMÍREZ 08/23/2024 09:50:53 Final Observation Date Value Abnormality Reference (Units ) Status MYCODE SPECIMEN-SST 08/23/2024 09:50:53 Freezing of extracted DNA, whole blood and/or serum. Final Performing Location LAB[facility] - [address] [place] [address]
--- OUTSIDE RECORDS SUMMARY | 2024-09-03 12:12 | External Medical Summary | Summary of Care ---
Author Name Unknown Organization [facility] Address [address] [facility] [place] [address] Phone [phone] Care Team Providers Care Keg Varnisher Name Role Phone Lani Vargas PA-C Primary Care Provider [phone] Reason for Visit * Reason Onset Date Comments Follow Up 08/21/2024 ASC call Encounter Details Date Type Department Care Team (Late st Contact Info) Description 08/21/2024 4:15 PM EST Scheduled Telephone Ancillary Scenery [place] [address] [place] [address] [place], Nurse Annual Wellness Scenery [address] [place] [address] Arrived Allergies Active Allergy Reactions Criticality Noted Date Comments Empagliflozin 08/14/2024 Muscle cramps. Not to be prescribed per nephrology. Metolazone 07/16/2023 Severe Electrolyte imbalance needing Hospital admission Morphine Sulfate Nausea/vomiting 04/26/2009 documented as of this encounter (statuses as of 08/21/2024) Medications analgesic balm (BLAINE JENNINGS) 15% OINTIndications:Kn [...] times a day as needed. 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, with long-term current use of insulin 08/18/2024 History of pulmonary embolism 08/17/2024 Overview (08/17/2024): 04/11/24 Pulmonary note Performed 02/2022, [facility] "Extensive bilateral pulmonary emboli with [...] as of this encounter (statuses as of 08/21/2024) Resolved Problems Problem Noted Date Diagnosed Date Resolved Date Food insecurity 07/05/2023 08/10/2024 Overview: Per [facility] Protocol 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 07/30/2022 04/13/2023 Other pulmonary embolism wit hout acute cor pulmonale 07/30/2022 08/17/2024 Overview (08/17/2024): History 04/11/24 Pulmonary note Performed 02/2022, [facility] "Extensive bilateral pulmonary emboli with [...] as of this encounter (statuses as of 08/21/2024) Immunizations Name Administration Dates Next Due COVID-19 mRNA, LNP-s, No Pre serve, 2-Dose Series (Pfizer) 11/29/2020,11/08/2020 Covid-19, Mrna, Lnp-s, Pf, B ivalent, 30 Mcg, IM, 12 yrs and above (Pfizer) 08/10/2022 H1N1 2009 Influenza, IM 11/04/2009 Hepatitis B, 20+ yrs 07/13/2013,06/08/2013 Pneumococcal Conjugate Vacci ne, 20-valent ([id number]) 02/15/2023 Pneumococcal Polysaccharide PPV23 (Pneumovax) 04/26/2009 Seasonal [...] encounter Miscellaneous Notes * Telephone Encounter - Missy Alba RN [...] Reconciliation Medication Reconciliation completed: yes Care Team Vice President Payment: yes Please let patient know you will [...] Team (Late st Contact Info) Description 08/23/2024 9:15 AM EST Imaging Radiology [facility] 132 [facility] [place] [id number] 09/05/2024 2:20 PM EST Office Visit Hepatology, [facility] 132 [facility] [place] [address] Deidra Mace MD [address] [place] [address] 09/14/2024 2:20 PM EST Office Visit Ne[facility]rologyRoc [address] [place] [address] [address] Cali Brown MD [address] [place] [address] 02/26/2025 2:30 PM EDT Office Visit Gynecology/Obstetrics [facility] [address] [facility] [place] [address] Francesca Rojas PA-C [address] [place] [address] 03/07/2025 2:40 PM EDT Office Visit Nephrology, [place] 200 [facility] [place] [address] Cali Brown MD 200 [facility] [place] [address] Scheduled Procedures Name Priority Associated Diagnoses Date/Ti [...] 01/18/2024, , 12/13/2023, Additional history exists GFR 02/08/2025 08/11/2024, 06/26, 11/22/2023, Additional history exists Depression Screening 07/17/2025 07/17/2024 Mammogram 08/04/2025 08/04/2024, 07/26, 06/17/2022, Additional history exists Albumin/Creatinine Ratio 08/11/2025 025, 02/16/2023, 01/27/2022, Additional history exists CKD HGB USE SMARTSET 38383 08/11/202508/11, 08/11/2024, 07/14/2024, Additional history exists CKD PHOS USE SMARTSET 58130 08/11/202507/26, 07/14/2024, 07/16/2023, Additional history exists Pap Smear 05/19/2026 05/19/2023, [...] documented as of this encounter Care Teams Keg Varnisher Relationship Specialty Start Date End Date Lani Vargas PA-C [facility] [place] [address] PCP - General Physician Electronic Repair Troubleshooter 08/03/24 documented as of this encounter
--- OUTSIDE RECORDS SUMMARY | 2024-09-03 12:12 | External Medical Summary | Summary of Care ---
Author Name Unknown Organization [facility] Address [address] [facility] [place] [address] Phone [phone] Care Team Providers Care Monitor Technician Name Role Phone Lani Vargas PA-C Primary Care Provider [phone] Reason for Visit * Reason Onset Date Comments Test Results 08/24/2024 Encounter Details Date Type Department Care Team (Late st Contact Info) Description 08/24/2024 Telephone Nephrology, [place] 200 [facility] [place] [address] Cali Brown MD [address] [facility] [place] [address] Test Results Allergies Active Allergy Reactions Criticality Noted Date Comments Empagliflozin 08/14/2024 Muscle cramps. Not to be prescribed per nephrology. Metolazone 07/16/2023 Severe Electrolyte imbalance needing Hospital admission Morphine Sulfate Nausea/vomiting 04/26/2009 documented as of this encounter (statuses as of 08/24/2024) Medications analgesic balm (BLAINE JENNINGS) 15% OINTIndications:Kn [...] times a day as needed. 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, with long-term current use of insulin 08/18/2024 History of pulmonary embolism 08/17/2024 Overview (08/17/2024): 04/11/24 Pulmonary note Performed 02/2022, [facility] "Extensive bilateral pulmonary emboli with associated subtle [...] as of this encounter (statuses as of 08/24/2024) Resolved Problems Problem Noted Date Diagnosed Date Resolved Date Food insecurity 07/05/2023 08/10/2024 Overview: Per [facility] Protocol 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 07/30/2022 04/13/2023 Other pulmonary embolism wit hout acute cor pulmonale 07/30/2022 08/17/2024 Overview (08/17/2024): History 04/11/24 Pulmonary note Performed 02/2022, [facility] "Extensive bilateral pulmonary emboli with associated subtle [...] as of this encounter (statuses as of 08/24/2024) Immunizations Name Administration Dates Next Due COVID-19 mRNA, LNP-s, No Pre serve, 2-Dose Series (Pfizer) 11/29/2020,11/08/2020 Covid-19, Mrna, Lnp-s, Pf, B ivalent, 30 Mcg, IM, 12 yrs and above (Pfizer) 08/10/2022 H1N1 2009 Influenza, IM 11/04/2009 Hepatitis B, 20+ yrs 07/13/2013,06/08/2013 Pneumococcal Conjugate Vacci ne, 20-valent ([id number]) 02/15/2023 Pneumococcal Polysaccharide PPV23 (Pneumovax) 04/26/2009 Seasonal [...] encounter Miscellaneous Notes * Telephone Encounter - Viola Payne RN - 08/24/2024 10:40 AM EST Message sent via portal regarding test results. * Telephone Encounter - Viola Payne RN - 08/24/2024 10:37 AM EST ----- Message from Cali Brown MD sent at 08/24/2024 9:34 AM EST ----- Mag is now normal. Kidney function better. Continue same. Ask about edema and cramp now. documented in this encounter Plan of Treatment Upcoming Encounters Date Type Department Care Team (Late st Contact Info) Description 09/05/2024 2:20 PM EST Office Visit Hepatology, [facility] 132 [facility] [place] [address] Deidra Mace MD [address] [place] [address] 09/14/2024 2:20 PM EST Office Visit NephrologyRoc [address] [place] [address] Cali Brown MD 200 [facility] [place] [address] 02/26/2025 2:30 PM EDT Office Visit Gynecology/Obstetrics [facility] 132 [facility] [place] [address] Francesca Rojas PA-C [facility] [place] [address] 03/07/2025 2:40 PM EDT Office Visit NephrologyRoc 200 [facility] [place] [address] Cali Brown MD 200 [facility] [place] [address] Scheduled Procedures Name Priority Associated Diagnoses Date/Ti [...] Additional history exists CKD HGB USE SMARTSET 74685 08/11/202508/11, 08/11/2024, 07/14/2024, Additional history exists CKD PHOS USE SMARTSET 13285 08/23/202507/27, 08/11/2024, 07/14/2024, Additional history exists Pap [...] documented as of this encounter Care Teams Monitor Technician Relationship Specialty Start Date End Date Lani Vargas PA-C [address] [place] [address] PCP - General Physician Blankbook Stitching Machine Operator 08/03/24 documented as of this encounter
--- OUTSIDE RECORDS SUMMARY | 2024-09-03 12:12 | External Medical Summary | Summary of Care ---
Author Name Unknown Organization [facility] Address [address] [place] [address] Phone [phone] Care Team Providers Care Commissary Helper Name Role Phone Lani Vargas PA-C Primary Care Provider [phone] Reason for Visit * Reason Onset Date Comments Test Results 08/23/2024 Unexpected or In determinate Result Encounter Details Date Type Department Care Team (Late st Contact Info) Description 08/23/2024 Telephone Laboratory, [place] [address] [place] [address] Jonathan Rees III, MD 200 [place] [address] Test Results (Unexpected or Indeterminate ... Allergies [...] times a day as needed. Active Methyl Fipsmqocbt-Udav-Ch nthol 2-4-1 % External Patch 2 times [...] stage 4 chronic kidney disease, unspecified whether hand alterations tailor insulin use (HCC) Inject 5 Units under [...] EST 07/29/19 25 Active OneTouch Delica Plus Pryfnx50D USE TWICE DAILY DIRECTED 200 Each 3 [...] (08/17/2024): 04/11/24 Pulmonary note Performed 02/2022, [facility] "Extensive bilateral pulmonary emboli with [...] History 04/11/24 Pulmonary note Performed 02/2022, [facility] "Extensive bilateral pulmonary emboli with [...] yrs 07/13/2013,06/08/2013 Pneumococcal Conjugate Vacci ne, 20-valent ([id number]) 02/15/2023 Pneumococcal Polysaccharide PPV23 (Pneumovax) 04/26/2009 Seasonal [...] unexpected or indeterminate finding on Saida Giron ([id number]) and asks that you review the following [...] Thank you, ANEL Padilla Client Service Rep [facility] documented in this encounter Plan of Treatment Upcoming Encounters Date Type Department Care Team (Late st Contact Info) Description 09/05/2024 2:20 PM EST Office Visit Hepatology, [address] [place] [address] Deidra Mace MD [facility] [place] [address] 09/14/2024 2:20 PM EST Office Visit Nephrology, [place] 200 [facility] [place] [address] Cali Brown MD 200 [facility] [place] [address] 02/26/2025 2:30 PM EDT Office Visit Gynecology/Obstetrics [facility] 132 [place] [address] Francesca Rojas PA-C [address] [place] [address] 03/07/2025 2:40 PM EDT Office Visit Nephrology, [place] [address] [place] [address] Cali Brown MD 200 [facility] [place] [address] Scheduled Procedures Name Priority Associated Diagnoses Date/Ti [...] Additional history exists CKD HGB USE SMARTSET 08882 08/11/202508/11, 08/11/2024, 07/14/2024, Additional history exists CKD PHOS USE SMARTSET 59957 08/23/202507/27, 08/11/2024, 07/14/2024, Additional history exists Pap [...] documented as of this encounter Care Teams Commissary Helper Relationship Specialty Start Date End Date AliciaOctober DIONICIO Mott [address] [place] [address] PCP - General Physician Build Automation Engineer 08/03/24 documented as of this encounter
--- OUTSIDE RECORDS SUMMARY | 2024-09-03 12:12 | External Medical Summary | Summary of Care ---
Author Name Unknown Organization [facility] Address [address] [facility] [address] Phone [phone] Care Team Providers Care Bus Dispatcher Interstate Name Role Phone Lani Vargas PA-C Primary Care Provider [phone] Reason for Referral * Evaluate & Treat - Unlimited Visits (Within 30 days (routine)) - Authorized Specialty Diagnoses / Procedures Referred By Ata workman Referred To Contact Obstetrics/Gynecology / Gynecology Obstetrics Diagnoses Vaginal spotting Jonathan Rees III, MD [address] [place] [address] Phone: tel: fax: Referral ID Status Reason Start Date Expiration Date Visits Requested Visits Authorized [id number] Authorized Specialty Services Required 08/18/[phone] Question Answer Referral Priority Within 30 days (routine) What condition is the patient being seen for? Postmenopausal bleeding Patient will need an ultrasound prior to being seen by gynecology. I acknowledge Where should this appointment be scheduled? [facility] Comments BP 118/64 | Pulse 78 | Temp 98.7 F (37.1 C) (Tympanic) | Resp 16 | Wt 210 lb 9.6 oz (95.5 kg) * Medication Prior Authorization - Pending Review Specialty Diagnoses / Procedures Referred By Ata workman Referred To Contact Diagnoses Upper respiratory tract infection, unspecified type Jonathan Rees III, MD [address] [place] [address] Phone: tel: fax: Referral ID Status Reason Start Date Expiration Date V isits Requested Visits Authorized [id number] Pending Review [phone] Reason for Visit * Reason Comments Re-Check Encounter Details Date Type Department Care Team (Latest Contact Info) Description 08/18/2024 11:40 AM EST Office Visit [facility] Practice [employer] [address] [facility] [place] [address] Jonathan Rees III, MD [address] [facility] [place] [address] Upper respiratory tract infection, unspecified type*; Vaginal spotting; Moderate persistent asthma, unspecified whether complicated; Portal hypertension (HCC); Type 2 diabetes mellitus with both eyes affected by severe nonproliferative retinopathy and macular edema, with long-term current use of insulin (HCC); Hyperlipidemia, unspecified hyperlipidemia type Allergies Active Allergy Reactions Criticality Noted Date Comments Empagliflozin 08/14/2024 Muscle cramps. Not to be prescribed per nephrology. Metolazone 07/16/2023 Severe Electrolyte imbalance needing Hospital admission Morphine Sulfate Nausea/vomiting 04/26/2009 documented as of this encounter (statuses as of 08/21/2024) Medications analgesic balm (BLAINE JENNINGS) 15% OINTIndications:K nee pain twice daily as needed (STOP PAIN) 1 Tube 11 015 Active OneTouch Verio w/Device Kit Use up to 4 times a day E11.9 1 Kit 022 Active Albumin Human 25 % Intravenous Solution Infuse 25g albumin pre paracentesis. If fluid removed is >5L, please infuse 25g post paracentesis. Run at 100mL/hr. 200 mL 022 Active ProAir HFA 108 (90 Base) MCG/ACT Inhalation Aerosol SolutionIndicatio ns:Moderate persistent asthma without complication Inhale 2 Puffs by mouth in the morning and 2 Puffs at noon and 2 Puffs in the evening and 2 Puffs before bedtime. 18 g 3 02/18/20 23 1:42 PM EDT 023 Active Docusate Sodium 100 MG Oral Capsule (Colace)Indicatio ns:Constipation, unspecified constipation type Take 1 Capsule by mouth 2 times a day as needed. Active Methyl Avxhulzavx-Sbhl-J enthol 2-4-1 % External Patch 2 times a day. 023 Active Unifine Pentips 31G X 8 MM (Insulin Pen Needle)Indication s:DM type 2, not at goal (HCC) use 4 times daily as directed (Novolog & Lantus) 400 Each 3 08/03/19 24 1:12 PM EST 023 Active Insulin Glargine Solostar 100 UNIT/ML Subcutaneous Solution Pen-injector (Lantus SoloStar)Indicati ons:DM type 2, not at goal (HCC) INJECT 25 units UNDER THE SKIN daily in the morning 30 mL 3 11/15/19 24 6:38 AM EDT 023 Active Additional Information Patient taking differently: 22 Units Subcutaneous Daily(AM), INJECT 21 units UNDER THE SKIN daily in the morning, Reported on 08/18/2024 NovoLOG FlexPen 100 UNIT/ML Subcutaneous Solution Pen-injector (insulin aspart)Indication s:Type 2 diabetes mellitus with stage 4 chronic kidney disease, unspecified whether nursing home insulin use (HCC) Inject 5 Units under the skin in the morning and 5 Units at noon and 5 Units in the evening. Inject with meals. 15 mL 3 11/10/19 24 2:17 PM EDT 023 Active Additional Information Patient taking differently:5 Units SubcutaneousBID(Non-Specified), Reported on 08/18/2024 Multivitamin Adult Oral Tablet Take 1 Tablet by mouth in the morning. Active Pantoprazole Sodium 20 MG Oral Tablet Delayed Release (Protonix) Take 1 Tablet by mouth 2 times a day with morning and evening meals. 180 Tablet 1 07/28/19 25 2:50 PM EST 024 Active rOPINIRole HCl 0.25 MG Oral Tablet (Requip)Indicatio ns:RLS (restless legs syndrome) Take 1 Tablet by mouth at bedtime. 90 Tablet 3 07/28/19 25 2:50 PM EST 024 Active Diclofenac Sodium 1 % External Gel (Voltaren) Apply topically to back of knees 2 times a day. 400 g 6 08/29/2 024 Active Rosuvastatin Calcium 5 MG Oral Tablet (Crestor)Indicati ons:Hyperlipidemi a, unspecified hyperlipidemia type Take 1 Tablet by mouth in the morning. 90 Tablet 3 07/28/19 25 2:50 PM EST 024 Active Eliquis 5 MG Oral Tablet Take by 1 tablet by mouth every 12 hours 200 Tablet 1 07/31/19 25 11:09 AM EST 025 Active OneTouch Delica Plus [id number] USE TWICE DAILY DIRECTED 200 Each 3 07/31/19 25 10:34 AM EST 025 Active OneTouch Verio In Vitro Strip (Glucose Blood) USE DIRECTED TWO TIMES A DAY 200 Strip 3 07/31/19 25 10:34 AM EST 025 Active traMADol HCl 50 MG Oral Tablet (Ultram)Indicatio ns:Chronic thoracic back pain, unspecified back pain laterality TAKE 1 TABLET BY MOUTH EVERY 6 HOURS NEEDED FOR MODERATE PAIN 30 Tablet 025 Active Spironolactone 50 MG Oral Tablet (Aldactone)Indica tions:Chronic kidney disease, stage 3b (HCC) Take 1 tablet every morning 025 Active Furosemide 80 MG Oral Tablet (Lasix) Take one tablet every morning 025 Active Benzonatate 100 MG Oral CapsuleIndication s:Upper respiratory tract infection, unspecified type Take 1 Capsule by mouth 3 times a day as needed for Cough. 30 Capsule 1 025 Active Benzonatate 100 MG Oral Capsule Take 1 Capsule by mouth 3 times a day as needed for Cough. 30 Capsule 1 025 2024 Discontinued documented as of this encounter (statuses as of 08/21/2024) Active Problems Problem Noted Date Diagnosed Date Moderate persistent asthma 08/18/2024 Type 2 diabetes mellitus wit h both eyes affected by severe nonproliferative retinopathy and macular edema, with long-term current use of insulin 08/18/2024 History of pulmonary embolism 08/17/2024 Overview (08/17/2024): 04/11/24 Pulmonary note Performed 02/2022, [facility] "Extensive bilateral pulmonary emboli with associated [...] History 04/11/24 Pulmonary note Performed 02/2022, [facility] "Extensive bilateral pulmonary emboli with associated [...] yrs 07/13/2013,06/08/2013 Pneumococcal Conjugate Vacci ne, 20-valent ([id number]) 02/15/2023 Pneumococcal Polysaccharide PPV23 (Pneumovax) 04/26/2009 Seasonal [...] Sign Reading Time Taken Comments Blood Pressure 118/64 08/18/2024 11:22 AM EST Pulse 78 08/18/2024 11:22 AM EST Temperature 37.1 C (98.7 F) 08/18/2024 11:[address] Respiratory Rate 16 08/18/2024 11:22 AM EST Oxygen Saturation 97% 08/18/2024 11:22 AM EST Inhaled Oxygen Concentration - - Weight 95.5 kg (210 lb 9.6 oz) 08/18/2024 11:22 AM EST Height - - Body Mass Index 36.72 04/11/2024 11:40 AM EDT documented in this encounter Progress Notes * Woodruff III, Jonathan Potter MD - 08/18/2024 12:10 PM EST Subjective: Saida Giron is a 64 year old female. Chief Complaint Patient presents with Re-Check HPI: 2 concerns cough runny nose cough is dry can have paroxysms no chest pain nasal drainage is profuse and clear denies earache throat was more sore but coughing irritates it also has had some vaginal spotting 2 days she is diabetic has dyslipidemia portal hypertension cirrhosis from JOYCE PHM: Patient Active Problem List Diagnosis OSTEOARTHROS NOS-L-LEG Polyarthropathy or polyarthritis of multiple sites Asthma, moderate persistent Decreased platelet count (HCC) Hyperlipidemia, unspecified Diabetic retinopathy of both eyes (HCC) Type 2 diabetes mellitus with stage 3b chronic kidney disease, with long-term current use of insulin (HCC) 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 18 g 3 Docusate Sodium 100 MG Oral Capsule (Colace) Take 1 Capsule by mouth 2 times a day as needed. Methyl Cpehbhkwds-Fdem-Lnsdhhb 2-4-1 % External Patch 2 times a [...] hours 200 Tablet 1 OneTouch Delica Plus Kocbna15I USE TWICE DAILY DIRECTED 200 Each 3 [...] as needed for Cough. 30 Capsule 1 Albumin Human 25 % Intravenous Solution Infuse 25g albumin pre paracentesis. If fluid removed is >5L, please infuse 25g post paracentesis. Run at 100mL/hr. 200 mL 0 No current facility-administered medications for this visit. Past Medical History: Diagnosis Date Asthma Diabetes mellitus ([facility]) Diabetic eye exam ([facility]) 07/09/2012 no retinopathy Morbid obesity, BMI not known ([facility]) Other pulmonary embolism without acute cor pulmonale ([facility]) 07/30/2022 History 04/11/24 Pulmonary note Performed 02/2022, [facility] "Extensive bilateral pulmonary emboli with associated subtle embolus at the main pulmonary arteries." Rheumatic fever 1976 Past Surgical History: Procedure Laterality Date COLONOSCOPY, DIAGNOSTIC (RECTUM) 06/05/2022 normal scope/ no specimens collected / 10 year recall / COLONOSCOPY FLEXIBLE PROXIMAL DIAGNOSTIC performed by Deidar Mace MD at ENDOSCOPY [facility] EGD, FLEXIBLE, DIAGNOSTIC N/A 02/26/2023 portal hypertensive gastropathy/non-bleeding gastric ulcers/biopsies show mild irritation of stomach/EGD/[place] LAPAROSCOPY; CHOLECYSTECTOMY Dr Wilkes MAMMOGRAM SCREENING BILATERAL 06/03/2010 cat. 2, repeat in 12mths US GUIDED BREAST BIOPSY LEFT Left 06/30/2022 benign Review of patient's allergies indicates: Allergen Reactions Jardiance [Empagliflozin] Muscle cramps. Not to be prescribed per nephrology. Metolazone Severe Electrolyte imbalance needing Hospital admission Morphine Sulfate Nausea/vomiting Objective: BP 118/64 | Pulse 78 | Temp 98.7 F (37.1 C) (Tympanic) | Resp 16 | Wt 210 lb 9.6 oz (95.5 kg) |SpO2 97% | BMI 36.72 kg/m | BSA 2.07 m Physical Exam: General: alert, and no distress Eye Exam: PERRLA, extraocular movements intact, conjunctiva are pink and non- injected, sclera clear Oropharynx: no exudate, no erythema, lips, buccal mucosa, and tongue normal, and mucous membranes are moist Heart: regular rate & rhythm, no murmur, and no gallops Lungs: lungs clear to auscultation ASSESSMENT/PLAN: Upper respiratory tract infection, unspecified type (Primary) - Benzonatate 100 MG Oral Capsule; Take 1 Capsule by mouth 3 times a day as needed for Cough. Vaginal spotting - COPY PREPARER REFERRAL OP - US PELVIS TRANS-VAGINAL NON-OB; Future; Expected date: 08/18/2024 Discussed does not want to try Paxlovid with her kidney function try tsp of honey encourage fluids for cough Jonathan Rees III, MD documented in this encounter Nursing Notes * Loretta Yee LPN - 08/18/2024 11:22 AM EST Saida Giron presents for 1 month recheck. Medications & HM reviewed. 1 documented in this encounter Miscellaneous Notes * Result Encounter Note - Jonathan Rees III, MD - 08/19/2024 10:37 AM EST Call please let her know nasal swab positive for COVID how doing documented in this encounter Plan of Treatment Upcoming Encounters Date Type Department Care Team (Late st Contact Info) Description 08/21/2024 4:15 PM EST Scheduled Telephone Ancillary [facility] [place] [address] [facility] [place] [address] Yanci, Nurse [facility] [address] [place] [address] Arrived 08/23/2024 9:15 AM EST Imaging Radiology [facility] [address] [place] [id number] 09/05/2024 2:20 PM EST Office Visit Hepatology, [facility] [place] [address] Deidra Mace MD [address] [place] [address] 09/14/2024 2:20 PM EST Office Visit Nephrology, [facility] [address] [facility] [address] [address] Cali Brown MD [address] [place] [address] 02/26/2025 2:30 PM EDT Office Visit Gynecology/Obstetric s [facility] [address] [place] [address] Francesca Rojas PA-C [address] [place] [address] 03/07/2025 2:40 PM EDT Office Visit NephrologyRoc [address] [place] [address] [address] Cali Brown MD [address] [facility] [place] [address] Scheduled Orders Name Type Priority Associated Diagnoses Orde r Schedule US PELVIS TRANS-VAGINAL NON-OB Medical Imaging Routine Vaginal spotting Expected: 08/18/2024, Expires: 09/18/2025 Scheduled Procedures Name Priority Associated Diagnoses Date/Ti me COLONOSCOPY FLEXIBLE PROXIMAL DIAGNOSTIC Recall Screen for colon cancer Scheduled Referrals Name Type Priority Associated Diagnoses Orde r Schedule COPY PREPARER REFERRAL OP Referral Within 30 day s (routine) Vaginal spotting Ordered: 08/18/2024 Health Maintenance Due Date Last Done Comments [...] Additional history exists CKD HGB USE SMARTSET 15245 08/11/202508/11, 08/11/2024, 07/14/2024, Additional history exists CKD PHOS USE SMARTSET 14490 08/11/202507/26, 07/14/2024, 07/16/2023, Additional history exists Pap [...] Not on filedocumented as of this encounter Procedures Procedure Name Priority Date/Time Associated Diagnosis Comments INFLUENZA A/B RSV SARS-COV2,PCR Routine 08/18/2024 12:35 PM EST Upper respiratory tract infection, unspecified type documented in this encounter Results * (ABNORMAL) INFLUENZA A/B RSV SARS-COV2,PCR (08/18/2024 12:35 PM EST) SARS-CoV-2 (COVID-19) Result Positive(A) Negative 08/19/2024 2:29 AM EST LABORATORY C Comment: SARS-CoV2 Coronavirus RNA detected by PCR (amplified probe). Test results reported to [facility]. This express test was developed and its performance characteristics determined by [facility]. It has not been cleared or approved by the U.S. Food and Drug Administration (FDA). FDA does not require this test to go thru premarket FDA review. This test is used for clinical purposes. It should not be regarded as investigational or for research. This laboratory is certified under the Clinical Laboratory Improvement Amendments (CLIA) as qualified to perform high complexity clinical laboratory testing. This test is a nucleic acid amplification test (NAAT), a reverse transcriptase polymerase chain reaction (RT-PCR) test, or a Centers for Disease Control- acceptable equivalent. The test is performed in a high complexity Clinical Laboratory Improvement Amendments-(CLIA) certified laboratory. The test is acceptable for SARS-CoV-2 diagnosis, surveillance, and travel within the [place] and to most countries. Please check with local testing authorities about requirements before travel. The validation of bronchial specimens, tracheal aspirates, and sputum for this assay was developed and performance characteristics determined by [facility]. The validation of alternate specimen types has not been cleared or approved by the U.S. Food and Drug Administration (FDA). It has been determined that such clearance is not necessary. Influenza A PCR Result Negative Negative 08/19/2024 2:29 AM EST LABORATORY [facility] Comment:No Influenza A RNA d etected by PCR (amplified probe) Influenza B PCR Result Negative Negative 08/19/2024 2:29 AM EST [facility]ORATORY [facility] Comment:No Influenza B RNA d etected by PCR (amplified probe) RSV PCR Result Negative Negative 08/19/2024 2:29 AM EST [facility]ORATORY [facility] Comment:No Respiratory Syncy tial Virus RNA detected by PCR (amplified probe) Upper Respiratory Mid-turbinate nasal swab / Unknown Non-blood Collection / Unknown 08/18/2024 12:35 PM EST 08/18/2024 3:12 PM EST Jonathan Rees III, MD LAB MICRO - GENERAL ORDERAB LES Final Result LABORATORY [facility] [address] [place] [address] documented in this encounter Visit Diagnoses Diagnosis Upper respiratory tract infection, unspecified type- Primary Vaginal spotting Other specified noninflammatory disorder of vagina Moderate persistent asthma, unspecified whether complicated Portal hypertension (HCC) Portal hypertension Type 2 diabetes mellitus with both eyes affected by severe nonproliferative retinopathy and macular edema, with long-term current use of insulin (HCC) Hyperlipidemia, unspecified hyperlipidemia type documented in this encounter Care Teams Bus Dispatcher Interstate Relationship Specialty Start Date End Date AliciaOctober Tiera, DIONICIO [address] [place] [address] PCP - General Physician Public Service Representative 08/03/24 documented as of this encounter
--- OUTSIDE RECORDS SUMMARY | 2024-09-03 12:12 | External Medical Summary | Summary of Care ---
Author Name Unknown Organization [facility] Address [address] [place] [address] Phone [phone] Care Team Providers Care Casework Supervisor Name Role Phone Lani Vargas PA-C Primary Care Provider [phone] Reason for Visit * Reason Onset Date Comments Test Results 08/23/2024 Unexpected or In determinate Result Encounter Details Date Type Department Care Team (Late st Contact Info) Description 08/23/2024 Telephone Laboratory, [facility] [address] [place] [address] Jonathan Rees III, MD [address] [place] [address] Test Results (Unexpected or Indeterminate ... Allergies [...] times a day as needed. Active Methyl Hyvjdtstiq-Oisl-Bz nthol 2-4-1 % External Patch 2 times [...] stage 4 chronic kidney disease, unspecified whether keno terminal operator insulin use (HCC) Inject 5 Units [...] EST 07/29/19 25 Active OneTouch Delica Plus [id number] USE TWICE DAILY DIRECTED 200 Each 3 [...] (08/17/2024): 04/11/24 Pulmonary note Performed 02/2022, [facility] "Extensive bilateral pulmonary emboli with associated [...] History 04/11/24 Pulmonary note Performed 02/2022, [facility] "Extensive bilateral pulmonary emboli with associated [...] yrs 07/13/2013,06/08/2013 Pneumococcal Conjugate Vacci ne, 20-valent ([id number]) 02/15/2023 Pneumococcal Polysaccharide PPV23 (Pneumovax) 04/26/2009 Seasonal [...] unexpected or indeterminate finding on Saida Giron ([id number]) and asks that you review the following [...] Thank you, ANEL Padilla Client Service Rep [facility] documented in this encounter Plan of Treatment Upcoming Encounters Date Type Department Care Team (Late st Contact Info) Description 09/05/2024 2:20 PM EST Office Visit Hepatology, [address] [place] [address] Deidra Mace MD [address] [facility] [place] [address] 09/14/2024 2:20 PM EST Office Visit Nephrology, [place] [address] [facility] [place] [address] Cali Brown MD 200 [place] [place] [address] 02/26/2025 2:30 PM EDT Office Visit Gynecology/Obstetrics [facility] [address] [facility] [address] Francesca Rojas PA-C [address] [place] [address] 03/07/2025 2:40 PM EDT Office Visit Nephrology, [place] [address] [place] [address] Cali Brown MD 200 [facility] [place] [address] Scheduled Procedures Name Priority Associated Diagnoses Date/Ti [...] Additional history exists CKD HGB USE SMARTSET 20783 08/11/202508/11, 08/11/2024, 07/14/2024, Additional history exists CKD PHOS USE SMARTSET 47949 08/23/202507/27, 08/11/2024, 07/14/2024, Additional history exists Pap [...] documented as of this encounter Care Teams Casework Supervisor Relationship Specialty Start Date End Date AliciaOctober DIONICIO Mott [address] [place] [address] PCP - General Physician Oil Extractor 08/03/24 documented as of this encounter
--- OUTSIDE RECORDS SUMMARY | 2024-09-03 12:13 | External Medical Summary | Summary of Care ---
Author Name Unknown Organization [facility] Address [address] [facility] [place] [address] Phone [phone] Care Team Providers Care Solid Waste Management Engineer Name Role Phone Lani Vargas PA-C Primary Care Provider [phone] Encounter Details Date Type Department Care Team (Late st Contact Info) Description 08/14/2024 Population Health External Data Unspecified Department Allergies Active Allergy Reactions Criticality Noted Date Comments Metolazone 07/16/2023 Severe Electrolyte imbalance needing Hospital admission Morphine Sulfate Nausea/vomiting 04/26/2009 documented as of this encounter (statuses as of 08/14/2024) Medications analgesic balm (BLAINE JENNINGS) 15% OINTIndications:Kn [...] times a day as needed. Active Methyl Sntyhcpuhx-Aeiw-Oz nthol 2-4-1 % External Patch 2 times a day. 02/26/20 Active Unifine Pentips 31G X 8 MM (Insulin Pen Needle)Indications :DM type 2, not at goal (HCC) use 4 times daily as directed (Novolog & Lantus) 400 Each 3 4 1:12 PM EST 04/27/20 Active Insulin Glargine Solostar 100 UNIT/ML Subcutaneous Solution Pen-injector (Lantus SoloStar)Indicatio ns:DM type 2, not at goal (HCC) INJECT 25 units UNDER THE SKIN daily in the morning 30 mL 3 4 6:38 AM EDT 04/27/20 Active Additional Information Patient taking differently: 22 Units Subcutaneous Daily(AM), INJECT 21 units UNDER THE SKIN daily in the morning, Reported on 08/11/2024 NovoLOG FlexPen 100 UNIT/ML Subcutaneous Solution Pen-injector (insulin aspart)Indications :Type 2 diabetes mellitus with stage 4 chronic kidney disease, unspecified whether group home insulin use (HCC) Inject 5 Units under the skin in the morning and 5 Units at noon and 5 Units in the evening. Inject with meals. 15 mL 3 4 2:17 PM EDT 04/27/20 Active Additional Information Patient taking differently:5 Units SubcutaneousBID(Non-Specified), Reported on 08/11/2024 Multivitamin Adult Oral Tablet Take 1 Tablet [...] EST 07/29/19 25 Active OneTouch Delica Plus [id number] USE TWICE DAILY DIRECTED 200 Each 3 [...] one tablet every morning 08/11/19 25 Active documented as of this encounter (statuses as of 08/14/2024) Active Problems Problem Noted Date Diagnosed Date Chronic diastolic heart failure 04/13/2023 Chronic kidney [...] as of this encounter (statuses as of 08/14/2024) Resolved Problems Problem Noted Date Diagnosed Date [...] as of this encounter (statuses as of 08/14/2024) Immunizations Name Administration Dates Next Due COVID-19 mRNA, LNP-s, No Pre serve, 2-Dose Series ([employer]) 11/29/2020,11/08/2020 Covid-19, Mrna, Lnp-s, Pf, B ivalent, 30 Mcg, IM, 12 yrs and above (Pfizer) 08/10/2022 H1N1 2009 Influenza, IM 11/04/2009 Hepatitis B, 20+ yrs 07/13/2013,06/08/2013 Pneumococcal Conjugate Vacci ne, 20-valent ([id number]) 02/15/2023 Pneumococcal Polysaccharide PPV23 (Pneumovax) 04/26/2009 Seasonal [...] PM EDT documented as of this encounter Plan of Treatment Upcoming Encounters Date Type Department Care Team (Late st Contact Info) Description 08/18/2024 11:40 AM EST Office Visit Family Practice [facility] [address] [address] Jonathan Rees III, MD [address] [place] [address] 09/05/2024 2:20 PM EST Office Visit Hepatology, [facility] [address] [facility] [place] [address] Deidra Mace MD [address] [place] [address] 09/14/2024 2:20 PM EST Office Visit Nephrology, [facility] [address] [place] [address] Cali Brown MD [address] [place] [address] [address] 03/07/2025 2:40 PM EDT Office Visit [facility] [address] [place] [address] [address] Cali Brown MD [address] [place] [address] [address] Scheduled Procedures Name Priority Associated Diagnoses Date/Ti [...] Depression Screening 07/17/2025 07/17/2024 Mammogram 08/04/2025 08/04/2024, 05/27, 05/29/2022, Additional history exists Albumin/Creatinine Ratio 08/11/2025 025, 02/16/2023, 01/27/2022, Additional history exists CKD HGB USE SMARTSET 43020 08/11/202508/11, 08/11/2024, 07/14/2024, Additional history exists CKD PHOS USE SMARTSET 30668 08/11/202507/26, 07/14/2024, 07/16/2023, Additional history exists Pap [...] filedocumented as of this encounter Care Teams Solid Waste Management Engineer Relationship Specialty Start Date End Date Meenaoctober DIONICIO Mott [address] [place] [address] PCP - General Physician Game Developer 08/03/24 documented as of this encounter
--- OUTSIDE RECORDS SUMMARY | 2024-09-03 12:13 | External Medical Summary | Summary of Care ---
Author Name Unknown Organization [facility] Address [address] [place] [address] Phone [phone] Care Team Providers Care Ecosystem Ecology Professor Name Role Phone Lani Vargas PA-C Primary Care Provider [phone] Reason for Visit * Reason Onset Date Comments Test Results 08/14/2024 Encounter Details Date Type Department Care Team (Late st Contact Info) Description 08/14/2024 Telephone Nephrology, [place] [address] [facility] [place] [address] Cali Brown MD [address] [facility] [place] [address] Test Results Allergies Active Allergy Reactions Criticality [...] times a day as needed. Active Methyl Kmnhgngozm-Qhic-En nthol 2-4-1 % External Patch 2 times [...] stage 4 chronic kidney disease, unspecified whether ocean transportation intermediary insulin use (HCC) Inject 5 Units under [...] EST 07/29/19 25 Active OneTouch Delica Plus Riufzz21A USE TWICE DAILY DIRECTED 200 Each 3 [...] mRNA, LNP-s, No Pre serve, 2-Dose Series ([employer]) 11/29/2020,11/08/2020 Covid-19, Mrna, Lnp-s, Pf, B ivalent, 30 Mcg, IM, 12 yrs and above ([employer]) 08/10/2022 H1N1 2009 Influenza, IM 11/04/2009 Hepatitis B, 20+ yrs 07/13/2013,06/08/2013 Pneumococcal Conjugate Vacci ne, 20-valent ([id number]) 02/15/2023 Pneumococcal Polysaccharide PPV23 (Pneumovax) 04/26/2009 Seasonal [...] Telephone Encounter - Viola Payne RN - 08/14/2024 2:06 PM EST Message sent via patient portal. * Telephone Encounter - Viola Payne RN - 08/14/2024 2:04 PM EST ----- Message from Cali Brown MD sent at 08/14/2024 12:52 PM EST ----- Abnormal renal panel and high magnesium already addressed Rest of the labs are stable. documented in this encounter Plan of Treatment Upcoming Encounters Date Type Department Care Team (Late st Contact Info) Description 08/18/2024 11:40 AM EST Office Visit [facility] Practice [facility] [address] [place] [address] Cabrera III, Jonathan Potter MD [address] [place] [address] 09/05/2024 2:20 PM EST Office Visit Hepatology, [facility] [address] [place] [address] Deidra Mace MD [address] [place] [address] 09/14/2024 2:20 PM EST Office Visit Nephrology, [facility] [address] [facility] [place] [address] Cali Brown MD [address] [facility] [place] [address] 03/07/2025 2:40 PM EDT Office Visit Nephrology, [facility] [address] [facility] [place] [address] Cali Brown MD [address] [facility] [place] [address] Scheduled Procedures Name Priority Associated Diagnoses Date/Ti [...] Additional history exists CKD HGB USE SMARTSET 34300 08/11/202508/11, 08/11/2024, 07/14/2024, Additional history exists CKD PHOS USE SMARTSET 65671 08/11/202507/26, 07/14/2024, 07/16/2023, Additional history exists Pap [...] filedocumented as of this encounter Care Teams Ecosystem Ecology Professor Relationship Specialty Start Date End Date AliciaOctober DIONICIO Mott [address] [place] [address] PCP - General Physician Wrecker Operator 08/03/24 documented as of this encounter
--- OUTSIDE RECORDS SUMMARY | 2024-09-03 12:13 | External Medical Summary | Summary of Care ---
Author Name Unknown Organization [facility] Address [address] [address] Phone [phone] Care Team Providers Care Brake Holder Name Role Phone Lani Vargas PA-C Primary Care Provider [phone] Reason for Visit * Reason Comments Hospital Follow-Up Chronic Kidney Disease (CKD) Encounter Details Date Type Department Care Team (Late st Contact Info) Description 08/11/2024 9:00 AM EST Office Visit Nephrology, [place] [address] [facility] [place] [address] Cali Brown MD [address] [facility] [place] [address] CKD (chronic kidney disease) stage 4, GFR 15-29 ml/min (HCC)*; Hyponatremia; 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 Active Methyl Zfkndqxcpq-Sxef-Jf nthol 2-4-1 % External Patch 2 times [...] EST 07/29/19 25 Active OneTouch Delica Plus [id number] USE TWICE DAILY DIRECTED 200 Each 3 5 10:34 AM EST 07/29/19 25 Active OneTouch Verio In Vitro Strip (Glucose Blood) USE DIRECTED TWO TIMES A DAY 200 Strip 3 5 10:34 AM EST 07/29/19 25 Active Spironolactone 50 MG Oral Tablet (Aldactone)Indicat ions:Chronic kidney disease, stage 3b (HCC) Take 1 Tablet by mouth in the morning and 1 Tablet before bed 200 Tablet 1 5 10:34 AM EST 07/29/19 25 Active Furosemide 80 MG Oral Tablet (Lasix) Take 1 Tablet by mouth 2 times a day 200 Tablet 1 5 10:34 AM EST 07/29/19 25 Active Potassium Chloride ER 20 MEQ Oral Tablet Extended Release Take 1 Tablet by mouth 2 times a day. 200 Tablet 5 8:35 AM EST 08/02/19 25 Active traMADol HCl 50 MG Oral Tablet (Ultram)Indication s:Chronic thoracic back pain, unspecified back pain laterality TAKE 1 TABLET BY MOUTH EVERY 6 HOURS NEEDED FOR MODERATE PAIN 30 Tablet 08/02/19 25 Active Empagliflozin 10 MG Oral Tablet (Jardiance) Take 1 Tablet by mouth in the morning. 90 Tablet 3 5 11:11 AM EST 08/04/19 24 025 Discontin ued(Disch arged) documented as of this encounter (statuses as of 08/11/2024) Active Problems Problem Noted Date Diagnosed Date [...] as of this encounter (statuses as of 08/11/2024) Resolved Problems Problem Noted Date Diagnosed Date [...] as of this encounter (statuses as of 08/11/2024) Immunizations Name Administration Dates Next Due COVID-19 mRNA, LNP-s, No Pre serve, 2-Dose Series (Pfizer) 11/29/2020,11/08/2020 Covid-19, Mrna, Lnp-s, Pf, B ivalent, 30 Mcg, IM, 12 yrs and above (Pfizer) 08/10/2022 H1N1 2009 Influenza, IM 11/04/2009 Hepatitis B, 20+ yrs 07/13/2013,06/08/2013 Pneumococcal Conjugate Vacci ne, 20-valent ([id number]) 02/15/2023 Pneumococcal Polysaccharide PPV23 (Pneumovax) 04/26/2009 Seasonal [...] Sign Reading Time Taken Comments Blood Pressure 126/79 08/11/2024 8:50 AM EST Pulse 80 08/11/2024 8:50 AM EST Temperature 36.3 C (97.3 F) 08/11/2024 8:50 AM ES T Respiratory Rate 18 08/11/2024 8:50 AM EST Oxygen Saturation 99% 08/11/2024 8:50 AM EST Inhaled Oxygen Concentration - - Weight 93.4 kg (206 lb) 08/11/2024 8:50 AM EST Height - - Body Mass Index 35.92 04/11/2024 11:40 AM EDT documented in this encounter Progress Notes * Cali Brown MD - 08/11/2024 9:17 AM EST Chief Complaint Patient presents with Hospital Follow-Up Chronic Kidney Disease (CKD) Background: 64-year-old female with decompensated liver cirrhosis secondary to [...] was significantly lowered to 20 mg daily [id number] added. Lisinopril and metformin was permanently stopped. This was done through nephrology. Since last visit ----she lost her insurance and because of cost and insurance issues she was completely off all medications including the diuretics. She then had massive 50 lb weight gain with severe anasarca which then led to the hospital admission. She was diuresed with high dose IV Lasix for many days as well as Lasix drip and then transition to oral diuretics and was discharged on Lasixand spironolactone. She is now completely edema free. Breathing is much better and she is back to her stable weight. She is complaining of cramps at this time. Her kidney function was much worse when she was in the hospital with creatinine as high as 4 range but the most recent blood work shows a creatinine is down to 2.8. No edema and no abdominal distention currently NSAID No Renal Stone No Herbal Medication No Urinary Complaints No Current Outpatient Medications Medication Sig Dispense Refill analgesic balm (BLAINE JENNINGS) 15% OINT twice daily as needed (STOP PAIN) 1 Tube 11 ProAir HFA 108 (90 Base) MCG/ACT Inhalation Aerosol Solution Inhale 2 Puffs by mouth in the morningand 2 Puffs at noon and 2 Puffs in the evening and 2 Puffs before bedtime. 18 g 3 Docusate Sodium 100 MG Oral Capsule (Colace) Take 1 Capsule by mouth 2 times a day as needed. Insulin Glargine Solostar 100 UNIT/ML Subcutaneous Solution [...] 2 times a day.) 15 mL 3 Pantoprazole Sodium 20 MG Oral Tablet [...] mouth every 12 hours 200 Tablet 1 Spironolactone 50 MG Oral Tablet (Aldactone) Take 1 Tablet by mouth in the morning and 1 Tablet before bed 200 Tablet 1 Furosemide 80 MG Oral Tablet (Lasix) Take 1 Tablet by mouth 2 times a day 200 Tablet 1 Potassium Chloride ER 20 MEQ Oral Tablet Extended Release Take 1 Tablet by mouth 2 times a day. 200Tablet 1 traMADol HCl 50 MG Oral Tablet (Ultram) TAKE 1 TABLET BY MOUTH EVERY 6 HOURS NEEDED FOR MODERATEPAIN 30 Tablet 0 OneTouch Verio w/Device Kit Use up to 4 times a day E11.9 1 Kit 0 Albumin Human 25 % Intravenous Solution Infuse 25g albumin pre paracentesis. If fluid removed is >5L, please infuse 25g post paracentesis. Run at 100mL/hr. 200 mL 0 Methyl Dolyquddvf-Rxci-Ynmsjbk 2-4-1 % External Patch 2 times a day. (Patient not taking: Reported on 07/20/2024) Unifine Pentips 31G X 8 MM (Insulin Pen Needle) use 4 times daily as directed (Novolog & Lantus) 400 Each 3 Multivitamin Adult Oral Tablet Take 1 Tablet by mouth in the morning. OneTouch Delica Plus Bviswo21H USE TWICE DAILY DIRECTED 200 Each 3 OneTouch Verio In Vitro Strip (Glucose Blood) USE DIRECTED TWO TIMES A DAY 200 Strip 3 No current facility-administered medications for this visit. Past Medical History: Diagnosis Date Asthma Diabetes mellitus (HCC) Diabetic eye exam (HCC) 07/09/2012 no retinopathy Morbid obesity, BMI not known ([facility]) Rheumatic fever 1976 Past Surgical History: Procedure Laterality Date COLONOSCOPY, DIAGNOSTIC (RECTUM) 06/05/2022 normal scope/ no specimens collected / 10 year recall / COLONOSCOPY FLEXIBLE PROXIMAL DIAGNOSTIC performed by Deidra Mace MD at [facility] EGD, FLEXIBLE, DIAGNOSTIC N/A 02/26/2023 portal hypertensive gastropathy/non-bleeding gastric ulcers/biopsies show mild irritation of stomach/EGD/[place] LAPAROSCOPY; CHOLECYSTECTOMY Dr Wilkes MAMMOGRAM SCREENING BILATERAL 06/03/2010 cat. 2, repeat in [facility] [place] GUIDED BREAST BIOPSY LEFT Left 06/30/2022 [...] History Narrative 1 dog No mold Social Needs Financial Resource Strain: High Risk (08/01/2024) Financial Resource Strain Do you have any trouble paying for your medications, or do you think you might in the future? (Adult - for ages 18 years and over): Yes Does your family have trouble paying for medicine? (Household - for ages 0-17 years): Not on file Food Insecurity: No Food Insecurity (08/01/2024) Food Insecurity Do you need food for [...] Concern: Food Insecurity - Food Insecurity Present (07/17/2024) Hunger Vital Sign Worried About Running Out of Food in the Last Year: Sometimes true Ran Out of Food in the Last Year: Sometimes true Transportation Needs: No Transportation Needs (08/01/2024) Transportation Needs Do you have trouble getting a ride to medical visits or work? (Adult - for ages 18 years and over):Not on file Does your family have a hard time getting a ride to doctors visits? (Household - for ages 0-17 years): Not on file Has lack of transportation kept you from medical appointments, meetings, work, or from getting things needed for daily living? Check all that apply. (Adult - for ages 18 years and over): No Do you (or your family) have trouble finding or paying for a ride (transportation)? (Household - for ages 0-17 years): Not on file Social Connections: Socially Integrated (08/01/2024) Social Connections How often do you feel lonely or isolated from those around you? (Adult - for ages 18 years and over): Sometimes Housing Stability: Low Risk (08/01/2024) Housing Stability Do you currently live in a fpc or have no steady place to sleep at night? (Adult - for ages 18 years and over): No Do you think you are at risk of becoming homeless? (Adult - for ages 18 years and over): Not on file Does your family worry about paying for your home or becoming homeless? (Household - for ages 0-17 years): Not on file Are you homeless or worried that you might be in the future? (Adult - for ages 18 years and over): No Are you (or your family) homeless or [...] is otherwise negative OBJECTIVE: PHYSICAL EXAM: BP 126/79 (BP Site: Right Arm, BP Position: Sitting, BP Cuff Size: Large) | Pulse 80 | Temp 36.3 C (97.3 F) | Resp 18 | Wt 93.4 kg (206 lb) | SpO2 99% | BMI 35.92 kg/m | BSA 2.05 m General: alert and ill looking Neck: supple, no JVD Heart: regular rate & rhythm, no murmur, and no gallops Lungs: normal respiratory rate and rhythm, lungs clear to auscultation Abdomen: abdomen soft and non-tender Back: back symmetric, no curvature, no costovertebral angle tenderness Extremities:no edema now. On the day of admission in the hospital she had severe anasarca entire body Neuro Exam: alert & oriented x 3 with fluent speech Skin: no rashes or significant lesions BP Readings from Last 4 Encounters: 08/11/24 126/79 08/01/24 118/80 07/20/24 120/82 04/11/24 118/80 Wt Readings from Last 4 Encounters: 08/11/24 93.4 kg (206 lb) 07/20/24 98 kg (216 lb) 04/11/24 93.9 kg (207 lb) 01/26/24 92.6 kg (204 lb 3.2 oz) Estimated body mass index is 35.92 kg/m as calculated from the following: Height as of 04/11/24: 1.613 m (5' 3.5"). Weight as of this encounter: 93.4 kg (206 lb). Recent Labs Units 07/14/24 0000 11/22/23 1012 07/16/23 1511 06/10/23 1026 SODIUM - [facility] mmol/L -- 139 140 140 POTASSIUM - [facility] 3.9 5.1 4.9 5.2* CHLORIDE - [facility] mmol/L -- 101 102 105 CO2 - [facility] mmol/L -- 26 27 23 ESTIMATED GLOMERULAR FILTRATION RATE - [facility] 18.05 30* 26* 25* BUN - [facility] mg/dL -- 56* 43* 48* CREATININE - [facility] 2.86* 1.9* 2.1* 2.2* Recent Labs Units 07/14/24 0000 11/22/23 1012 07/16/23 1511 HGB 9.0* 11.2* 11.2* Recent Labs Units 07/14/24 0000 11/22/23 1012 07/16/23 1511 06/10/23 1026 03/30/23 1348 03/11/23 0928 CALCIUM - [facility] mg/dL -- 9.3 10.3* 9.4 < > 9.4 PHOSPHORUS - [facility] mg/dL -- -- 3.4 -- -- 3.6 PHOSPHORUS-OUTSIDE LAB 4.9 -- -- -- -- -- PTH - [facility] pg/mL -- -- 58 -- -- 105* < > = values in this interval not displayed. Recent Labs Units 07/14/24 0000 05/19/23 0949 02/15/23 1022 HEMOGLOBIN A1C - [facility] % -- -- 10.4* HEMOGLOBIN, [id number] LAB 6.8* -- -- HEMOGLOBIN A1C POCT - [facility] % -- 5.9* -- Recent Labs Units 03/08/23 1210 02/16/23 1153 ALBUMIN / CREATININE RATIO, URINE - [facility] mg/g Creat -- 84* PROTEIN/ CREATININE RATIO, URINE - [facility] mg/g 261* -- ASSESSMENT: CKD (chronic kidney disease) stage 4, GFR 15-29 ml/min ([facility]) (Primary) Fluctuating baseline with ranging from Stage 4. Last Creat was 2.86 GFR 18. Etiology combination longstanding diabetes as well as cirrhosis. Given cirrhosis CKD 4 and CHF , unfortunately creatinine will continue to fluctuate Will do labs as below today to have better idea of current status However I do not feel she needs metolazone and would strongly avoid it. We should be able to manage her fluid status with torsemide and spironolactone combination. She should also not be on metformin ( given end-stage liver disease as well as CKD 4 ) Lisinopril (for combination of decompensated liver cirrhosis and CKD 4) ever. Also permanently stop Jardiance. Most recent labs from October 2023 was reviewed and showed abnormal but relatively stable GFR of 30 creatinine of 1.9 and normal electrolytes. Hemoglobin is acceptable Will do labs as below today. She is currently complaining of cramps Has lost significant amount of weight and it is quite possible she might be on the volume depleted side at this point or may have significant electrolyte issues causing cramps Her weight is down by more than 50 lb compared to her admission day. Also from severe anasarca she is now completely edema free. However we might have over diuresed her and will decide about the diuretics dose after lab work. - CBC WITH WBC DIFFERENTIAL; Future; Expected date: 08/11/2024 - HEPATIC FUNCTION PANEL; Future; Expected date: 08/11/2024 - PTH; Future; Expected date: 08/11/2024 - RENAL FUNCTION PANEL; Future; Expected date: 08/11/2024 - PROTEIN/ CREATININE RATIO, URINE; Future; Expected date: 08/11/2024 - OSMOLALITY, URINE; Future; Expected date: 08/11/2024 - URINALYSIS WITH MICROSCOPIC EXAM; Future; Expected date: 08/11/2024 - 25-HYDROXY VITAMIN D; Future; Expected date: 08/11/2024 - MAGNESIUM; Future; Expected date: 08/11/2024 - OSMOLALITY, SERUM; Future; Expected date: 08/11/2024 - NEPHROLOGY FOLLOW UP APPT (DEPARTMENT USE ONLY); Future; Expected date: 11/09/2024 Hyponatremia She has a history of hyponatremia which is not unexpected given that she does have liver cirrhosis as well as advanced CKD and is frequently on metolazone. 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 Also potassium seems to be fine without any supplement Do not use metolazone. Also will permanently. Jardiance---not every patient should be on Jardiance or benefit from Jardiance as this is not an isolated case of CHF or an isolated case of diabetic CKD. She already has liver failure as well as advanced kidney disease with severe electrolyte issues causing hospital admissions. Trying to manage 2-3 diuretics as well as Jardiance is impossible and contraindicated. She can easily have significantly higher dose of Lasix if needed. I spent a total of 40-54 minutes (exact time 45 mins) on the date of service in preparation, delivery, and documentation of the care provided to Saida Giron excluding any time spent in the performance of separately billed services or time spent by another provider/QHP. Cali Brown MD documented in this encounter Nursing Notes * Viola Payne RN - 08/11/2024 8:52 AM EST Follow up visit today for hospital discharge. Discharged on 07/14 where she admitted for swelling.Currently she has no swelling. States she has had leg cramps for the past 3-4 days. No recent lab tests. documented in this encounter Plan of Treatment Upcoming Encounters Date Type Department Care Team (Late st Contact Info) Description 08/18/2024 11:40 AM EST Office Visit Family Practice [facility] [address] [facility] [place] [address] Jonathan Rees III, MD [address] [facility] [place] [address] 09/05/2024 2:20 PM EST Office Visit Hepatology, [facility] [address] [facility] [place] [address] Deidra Mace MD [address] [place] [address] 09/14/2024 2:20 PM EST Office Visit Nephrology, [facility] [address] [facility] [place] [address] Cali Brown MD [address] [place] [address] [id number] 03/07/2025 2:40 PM EDT Office Visit [facility] [address] [place] [address] [id number] Cali Brown MD [address] [facility] [place] [id number] Pending Results Name Type Priority Associated Diagnoses Date /Time PTH Lab Routine CKD (chronic kidney disease) stage 4, GFR 15-29 ml/min ([facility]) 08/11/2024 9:25 AM EST RENAL FUNCTION PANEL Lab Routine CKD (chronic kidney disease) stage 4, GFR 15-29 ml/min ([facility]) 08/11/2024 9:25 AM EST PROTEIN/ CREATININE RATIO, URINE Lab Routine CKD (chronic kidney disease) stage 4, GFR 15-29 ml/min ([facility]) 08/11/2024 9:25 AM EST OSMOLALITY, URINE Lab Routine CKD (chronic kidney disease) stage 4, GFR 15-29 ml/min ([facility]) Hyponatremia 08/11/2024 9:25 AM EST 25-HYDROXY VITAMIN D Lab Routine CKD (chronic kidney disease) stage 4, GFR 15-29 ml/min (HCC) 08/11/2024 9:25 AM EST MAGNESIUM Lab Routine CKD (chronic kidney disease) stage 4, GFR 15-29 ml/min ([facility]) 08/11/2024 9:25 AM EST OSMOLALITY, SERUM Lab Routine CKD (chronic kidney disease) stage 4, GFR 15-29 ml/min ([facility]) Hyponatremia 08/11/2024 9:25 AM EST Scheduled Orders Name Type Priority Associated Diagnoses Orde r Schedule PTH Lab Routine CKD (chronic kidney disease) stage 4, GFR 15-29 ml/min (HCC) Expected: 08/11/2024 (Approximate), Expires: 02/07/2025 RENAL FUNCTION PANEL Lab Routine CKD (chronic kidney disease) stage 4, GFR 15-29 ml/min (HCC) Expected: 08/11/2024 (Approximate), Expires: 02/07/2025 PROTEIN/ CREATININE RATIO, URINE Lab Routine CKD (chronic kidney disease) stage 4, GFR 15-29 ml/min (HCC) Expected: 08/11/2024 (Approximate), Expires: 02/07/2025 OSMOLALITY, URINE Lab Routine CKD (chronic kidney disease) stage 4, GFR 15-29 ml/min (HCC) Hyponatremia Expected: 08/11/2024 (Approximate), Expires: 02/07/2025 25-HYDROXY VITAMIN D Lab Routine CKD (chronic kidney disease) stage 4, GFR 15-29 ml/min (HCC) Expected: 08/11/2024 (Approximate), Expires: 02/07/2025 MAGNESIUM Lab Routine CKD (chronic kidney disease) stage 4, GFR 15-29 ml/min (HCC) Expected: 08/11/2024 (Approximate), Expires: 02/07/2025 OSMOLALITY, SERUM Lab Routine CKD (chronic kidney disease) stage 4, GFR 15-29 ml/min (HCC) Hyponatremia Expected: 08/11/2024 (Approximate), Expires: 02/07/2025 HEPATITIS B SURFACE ANTIBODY Lab Routine CKD (chronic kidney disease) stage 4, GFR 15-29 ml/min (HCC) Expected: 08/11/2024, Expires: 08/11/2025 ALBUMIN / CREATININE RATIO, URINE Lab Routine CKD (chronic kidney disease) stage 4, GFR 15-29 ml/min (HCC) Expected: 08/11/2024, Expires: 08/11/2025 Scheduled Procedures Name Priority Associated Diagnoses Date/Ti me COLONOSCOPY FLEXIBLE PROXIMAL DIAGNOSTIC Recall Screen for colon cancer Health Maintenance Due Date Last Done Comments Fecal Occult Blood Test 2007 Sigmoidoscopy 2007 Hepatitis B Vaccine (3 of 3 - Risk 3-dose series) 12/06/2013 07/13/2013, 06/08/2013 Cologuard 05/03/2022 05/03/2019 Albumin/Creatinine Ratio 02/17/2024 023, 01/27/2022, 11/15/2018, Additional history exists COVID-19 Vaccine ( season) 2024 08/10/2022, 11/29/2020, 11/08/2020 Diabetic Foot Exam 05/19/2024 05/19/2023, 1 , 02/25/2017, Additional history exists GFR 01/12/2025 07/14/2024, 10/25, 07/16/2023, Additional history exists HbA1c 01/12/2025 07/14/2024, 04/26, 02/15/2023, Additional history exists Diabetic Eye Exam 01/17/2025 01/18/2024, , 12/13/2023, Additional history exists CKD PHOS USE SMARTSET 68005 07/14/202506/26, 07/16/2023, 03/11/2023, Additional history exists Depression Screening 07/17/2025 07/17/2024 Mammogram 08/04/2025 08/04/2024, 05/27, 05/29/2022, Additional history exists CKD HGB USE SMARTSET 38037 08/11/202508/11, 08/11/2024, 07/14/2024, Additional history exists Pap Smear [...] Not on filedocumented as of this encounter Results * (ABNORMAL) URINALYSIS WITH MICROSCOPIC EXAM (08/11/2024 9:25 AM EST) Color, Urine Yellow Light Yellow, Yellow, Dark Yellow 08/11/2024 9:52 AM [facility] 56- Clarity, Urine Clear Clear 08/11/2024 9:52 AM [facility] 56- Glucose, Urine 500(A) Negative mg/dL 08/11/2024 9:52 AM [facility] 56- Bilirubin, Urine Negative Negative 08/11/2024 9:52 AM [facility] 56- Ketone, Urine Negative Negative mg/dL 08/11/2024 9:52 AM [facility] 56- Specific [place], Urine 1.015 1.003 - 1.030 08/11/2024 9:52 AM [facility] 56- Blood, Urine Trace(A) Negative 08/11/2024 9:52 AM [facility] 56- pH, Urine 6.0 5.0 - 7.5 Units 08/11/2024 9:52 AM [facility] 56- Protein, Urine Negative Negative mg/dL 08/11/2024 9:52 AM [facility] 56- Urobilinogen, Urine 0.2 0.2, 1.0 mg/dL 08/11/2024 9:52 AM [facility] 56- Nitrite, Urine Negative Negative 08/11/2024 9:52 AM [facility] 56- Esterase, Urine Small(A) Negative 08/11/2024 9:52 AM [facility] 56- RBC, Urine 3-5(A) 0 - 2 /HPF 08/11/2024 9:52 AM [facility] 56- WBC, Urine 10-19(A) 0 - 2 /HPF 08/11/2024 9:52 AM [facility] 56- Bacteria, Urine 26-50(A) 0 - 25 /HPF 08/11/2024 9:52 AM [facility] 56- Urine Non-blood Collection / Unknown 08/11/2024 9:25 AM EST 08/11/2024 9:26 AM EST us Cali Brown MD LAB URINE ORDERABLES Final Res ult [facility] 56-02 [address] [facility] [place] [address] documented in this encounter Visit Diagnoses Diagnosis CKD (chronic kidney disease) stage 4, GFR 15-29 ml/min (HCC)- Primary Chronic kidney disease, Stage IV (severe) Hyponatremia Hyposmolality and/or hyponatremia 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
--- OUTSIDE RECORDS SUMMARY | 2024-09-03 12:13 | External Medical Summary ---
Author Name Unknown Address Unknown Organization [id number][facility] [place] [address] Laboratory Report Ordering Provider Test Date Status WILBERT PIÑA 08/11/2024 09:25:29 Final Observation Date Value Abnormality Reference (Units ) Status BUN 08/11/2024 09:25:29 81 Above high normal 6-20 (mg/dL) Final Creatinine 08/11/2024 09:25:29 2.9 Above high normal 0.5-1.0 (mg/dL) Final Glomerular filtration rate/1.73 sq M.predicted [Volume Rate/Area] in Serum, Plasma or Blood by Creatinine-based formula (CKD-EPI) 08/11/2024 09:25:29 18 Below low normal >=60 (mL/min) Final eGFR is calculated based on the CKD-EPI 2020 equation. Sodium 08/11/2024 09:25:29 135 135-146 (m mol/L) Final Potassium 08/11/2024 09:25:29 5.1 3.5-5.1 (m mol/L) Final Cl 08/11/2024 09:25:29 95 Below low normal 98- 107 (mmol/L) Final CO2 08/11/2024 09:25:29 22 22-32 (mmo l/L) Final Anion gap 08/11/2024 09:25:29 18 Above high normal 7- 15 (mmol/L) Final Glucose 08/11/2024 09:25:29 176 Above high normal 70 -120 (mg/dL) Final Calcium 08/11/2024 09:25:29 10.2 8.4-10.2 ( mg/dL) Final Albumin 08/11/2024 09:25:29 4.5 3.8-5.0 (g /dL) Final Phosphate 08/11/2024 09:25:29 4.6 2.5-4.8 (m g/dL) Final Performing Location [facility] [place] [address]
--- OUTSIDE RECORDS SUMMARY | 2024-09-03 12:13 | External Medical Summary | Summary of Care ---
Author Name Unknown Organization [facility] Address [address] [facility] [facility] [place] [address] Phone [phone] Care Team Providers Care Digital Learning Platforms Manager Name Role Phone Lani Vargas PA-C Primary Care Provider [phone] Reason for Visit * Reason Onset Date Comments FYI 08/18/2024 Encounter Details Date Type Department Care Team (Late st Contact Info) Description 08/18/2024 Telephone Family Practice [facility] [address] [place] [address] Jonathan Rees III, MD 200 [place] [address] FYI Allergies Active Allergy Reactions Criticality Noted Date Comments Empagliflozin 08/14/2024 Muscle cramps. Not to be prescribed per nephrology. Metolazone 07/16/2023 Severe Electrolyte imbalance needing Hospital admission Morphine Sulfate Nausea/vomiting 04/26/2009 documented as of this encounter (statuses as of 08/18/2024) Medications analgesic balm (BLAINE JENNINGS) 15% OINTIndications:Kn [...] times a day as needed. 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, with long-term current use of insulin 08/18/2024 History of pulmonary embolism 08/17/2024 Overview (08/17/2024): 04/11/24 Pulmonary note Performed 02/2022, [facility] "Extensive bilateral pulmonary emboli with associated [...] as of this encounter (statuses as of 08/18/2024) Resolved Problems Problem Noted Date Diagnosed Date Resolved Date Food insecurity 07/05/2023 08/10/2024 Overview: Per [facility] Protocol 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 07/30/2022 04/13/2023 Other pulmonary embolism wit hout acute cor pulmonale 07/30/2022 08/17/2024 Overview (08/17/2024): History 04/11/24 Pulmonary note Performed 02/2022, [facility] "Extensive bilateral pulmonary emboli with associated [...] as of this encounter (statuses as of 08/18/2024) Immunizations Name Administration Dates Next Due COVID-19 mRNA, LNP-s, No Pre serve, 2-Dose Series (Pfizer) 11/29/2020,11/08/2020 Covid-19, Mrna, Lnp-s, Pf, B ivalent, 30 Mcg, IM, 12 yrs and above (Pfizer) 08/10/2022 H1N1 2009 Influenza, IM 11/04/2009 Hepatitis B, 20+ yrs 07/13/2013,06/08/2013 Pneumococcal Conjugate Vacci ne, 20-valent ([id number]) 02/15/2023 Pneumococcal Polysaccharide PPV23 (Pneumovax) 04/26/2009 Seasonal [...] encounter Miscellaneous Notes * Telephone Encounter - Evanoski, JONA Bynum - 08/18/2024 12:35 PM EST [facility] calling to advise Benzonatate 100mg caps are excluded from coverage Shanna Bee Drop Wire Aliner III [facility] 08/18/2024,12:35 PM documented in this encounter Plan of Treatment Upcoming Encounters Date Type Department Care Team (Late st Contact Info) Description 08/23/2024 9:15 AM EST Imaging Radiology [facility] [address] [facility] [place] [id number] 09/05/2024 2:20 PM EST Office Visit Hepatology, [facility] [address] [place] [address] Deidra Mace MD [address] [place] [address] 09/14/2024 2:20 PM EST Office Visit [facility] [address] [place] [address] Cali Brown MD [address] [place] [address] 02/26/2025 2:30 PM EDT Office Visit Gynecology/Obstetrics [facility] [address] [facility] [place] [address] Francesca Rojas PA-C [address] [place] [address] 03/07/2025 2:40 PM EDT Office Visit [facility] [address] [place] [address] Cali Brown MD [address] [place] [address] Scheduled Procedures Name Priority Associated Diagnoses Date/Ti [...] Additional history exists CKD HGB USE SMARTSET 57792 08/11/202508/11, 08/11/2024, 07/14/2024, Additional history exists CKD PHOS USE SMARTSET 34951 08/11/202507/26, 07/14/2024, 07/16/2023, Additional history exists Pap [...] filedocumented as of this encounter Care Teams Digital Learning Platforms Manager Relationship Specialty Start Date End Date AliciaOctober DIONICIO Mott [address] [place] [address] PCP - General Physician Rate Quoting Operator 08/03/24 documented as of this encounter
--- OUTSIDE RECORDS SUMMARY | 2024-09-03 12:13 | External Medical Summary | Summary of Care ---
Author Name Unknown Organization [facility] Address [address] [facility] [place] [address] Phone [phone] Care Team Providers Care Base Manager Name Role Phone Lani Vargas PA-C Primary Care Provider [phone] Reason for Visit * Reason Onset Date Comments Test Results 08/11/2024 Encounter Details Date Type Department Care Team (Late st Contact Info) Description 08/11/2024 Telephone Nephrology, [place] [address] [place] [address] Cali Brown MD 200 [place] [address] Test Results (/) Allergies Active Allergy Reactions Criticality Noted Date [...] times a day as needed. Active Methyl Apslvaljsa-Tgoz-Hr nthol 2-4-1 % External Patch 2 times [...] EST 07/29/19 25 Active OneTouch Delica Plus Ryhgvp28G USE TWICE DAILY DIRECTED 200 Each 3 [...] mouth 2 times a day. 200 Tablet 1 5 8:35 AM EST 08/02/19 25 Active traMADol HCl 50 MG Oral Tablet (Ultram)Indication s:Chronic thoracic back pain, unspecified back pain laterality TAKE 1 TABLET BY MOUTH EVERY 6 HOURS NEEDED FOR MODERATE PAIN 30 Tablet 08/02/19 25 Active documented as of this encounter [...] mRNA, LNP-s, No Pre serve, 2-Dose Series ([employer] [place]) 11/29/2020,11/08/2020 Covid-19, Mrna, Lnp-s, Pf, B ivalent, 30 Mcg, IM, 12 yrs and above ([employer] [place]) 08/10/2022 H1N1 2009 Influenza, IM 11/04/2009 Hepatitis B, 20+ yrs 07/13/2013,06/08/2013 Pneumococcal Conjugate Vacci ne, 20-valent ([id number]) 02/15/2023 Pneumococcal Polysaccharide PPV23 (Pneumovax) 04/26/2009 Seasonal [...] Telephone Encounter - Viola Payne RN - 08/11/2024 1:06 PM EST AM with call back number given * Telephone Encounter - Viola Payne RN - 08/11/2024 1:00 PM EST ----- Message from Cali Brown MD sent at 08/11/2024 12:52 PM EST ----- Magnesium is quite. I think her true kidney function might be even less than 18 and that is most likely the cause of the rising magnesium. She has lost massive amount of water weight and she might beover diuresed at this point Potassium is borderline high. Stop potassium supplement completely. Lower the Lasix dose to 80 once daily. Lower the dose of spironolactone 50 mg to once daily. Reconfirm and make sure to stop Jardiance permanently. Repeat renal panel and magnesium in about 10 days. documented in this encounter Plan of Treatment Upcoming Encounters Date Type Department Care Team (Late st Contact Info) Description 08/18/2024 11:40 AM EST Office Visit Family Practice [facility] [place] [address] [facility] [place] [address] Jonathan Rees III, MD [address] [facility] [place] [address] 09/05/2024 2:20 PM EST Office Visit Hepatology, [facility] [address] [facility] [place] [address] Deidra Mace MD [address] [facility] [place] [address] 09/14/2024 2:20 PM EST Office Visit Nephrology, [facility] [address] [place] [address] Cali Brown MD 200 [place] [address] 03/07/2025 2:40 PM EDT [facility] [address] [place] [address] Cali Brown MD [address] [facility] [place] [address] Scheduled Procedures Name Priority Associated Diagnoses Date/Ti [...] Additional history exists CKD HGB USE SMARTSET 98155 08/11/202508/11, 08/11/2024, 07/14/2024, Additional history exists CKD PHOS USE SMARTSET 29828 08/11/202507/26, 07/14/2024, 07/16/2023, Additional history exists Pap [...] filedocumented as of this encounter Care Teams Base Manager Relationship Specialty Start Date End Date Alicia Lani LAST MottC [address] [place] [address] PCP - General Physician Team Driver 08/03/24 documented as of this encounter
--- OUTSIDE RECORDS SUMMARY | 2024-09-03 12:13 | External Medical Summary | Summary of Care ---
Author Name Unknown Organization [facility] Address [address] [facility] [facility] [address] Phone [phone] Care Team Providers Care Platinum And Palladium Kettle Tender Name Role Phone Lani Vargas PA-C Primary Care Provider [phone] Reason for Visit * Reason Onset Date Comments Test Results 08/14/2024 Encounter Details Date Type Department Care Team (Late st Contact Info) Description 08/14/2024 Telephone Nephrology, [place] [address] [place] [address] Cali Brown MD [address] [place] [address] Test Results Allergies Active Allergy Reactions Criticality [...] times a day as needed. Active Methyl Lpluoceoeq-Hatu-Qk nthol 2-4-1 % External Patch 2 times [...] stage 4 chronic kidney disease, unspecified whether supervisor intermediates insulin use (HCC) Inject 5 Units under [...] EST 07/29/19 25 Active OneTouch Delica Plus Evcsdy59B USE TWICE DAILY DIRECTED 200 Each 3 [...] mRNA, LNP-s, No Pre serve, 2-Dose Series ([employer]) 11/29/2020,11/08/2020 Covid-19, Mrna, Lnp-s, Pf, B ivalent, 30 Mcg, IM, 12 yrs and above ([employer]) 08/10/2022 H1N1 2009 Influenza, IM 11/04/2009 Hepatitis B, 20+ yrs 07/13/2013,06/08/2013 Pneumococcal Conjugate Vacci ne, 20-valent ([id number]) 02/15/2023 Pneumococcal Polysaccharide PPV23 (Pneumovax) 04/26/2009 Seasonal [...] encounter Miscellaneous Notes * Telephone Encounter - Loretta Sellers LPN - 08/14/2024 4:02 PM EST I spoke to patient about other issues with my case mgmt follow up I reviewed the message from Dr Fairchild with her * Telephone Encounter - Viola Payne RN [...] 11:40 AM EST Office Visit Family Practice [facility] [place] [address] [place] [address] Jonathan Rees III, MD [address] [facility] [place] [address] 09/05/2024 2:20 PM EST Office Visit Hepatology, [facility] 132 [facility] [place] [address] Deidra Mace MD [address] [facility] [place] [address] 09/14/2024 2:20 PM EST Office Visit Nephrology, [facility] [address] [place] [address] Cali Brown MD [address] [facility] [place] [address] 03/07/2025 2:40 PM EDT Office Visit Nephrology, [place] [address] [place] [address] [address] Cali Brown MD 200 [place] [address] Scheduled Procedures Name Priority Associated Diagnoses Date/Ti [...] Additional history exists CKD HGB USE SMARTSET 73061 08/11/202508/11, 08/11/2024, 07/14/2024, Additional history exists CKD PHOS USE SMARTSET 40750 08/11/202507/26, 07/14/2024, 07/16/2023, Additional history exists Pap [...] filedocumented as of this encounter Care Teams Platinum And Palladium Kettle Tender Relationship Specialty Start Date End Date Alicia October DIONICIO Mott [address] [place] [address] PCP - General Physician Want Ad Supervisor 08/03/24 documented as of this encounter
--- OUTSIDE RECORDS SUMMARY | 2024-09-03 12:13 | External Medical Summary ---
Author Name Unknown Address Unknown Organization [id number]:LABORATORY [facility] - [address] [place] [address] Laboratory Report Ordering Provider Test Date Status WILBERT PIÑA 08/11/2024 09:25:29 Final Deficient: <20 ng/mL
Ins ufficient: 20-29 ng/mL
Recommended/Optimum:30-50 ng/mL

Vitamin D intoxication is rare. If suspicious of Vitamin D toxicity, evaluation of serum Calcium and PTH is recommended. Observation Date Value Abnormality Reference (Units ) Status 25-OH Vitamin D total 08/11/2024 09:25:29 35 >19 (ng/mL) Final Performing Location LABORATORY C - [address] [place] [address]
--- OUTSIDE RECORDS SUMMARY | 2024-09-03 12:13 | External Medical Summary ---
Author Name Unknown Address Unknown Organization K09:[facility] [place] [address] Laboratory Report Ordering Provider Test Date Status WILBERT PIÑA 08/11/2024 09:25:29 Final Observation Date Value Abnormality Reference (Units ) Status Alk Phos 08/11/2024 09:25:29 130 35-130 (U/ L) Final Performing Location [facility] [place] [address]
--- OUTSIDE RECORDS SUMMARY | 2024-09-03 12:13 | External Medical Summary ---
Author Name Unknown Address Unknown Organization K09:[facility] [place] [address] Laboratory Report Ordering Provider Test Date Status WILBERT PIÑA 08/11/2024 09:25:29 Final Observation Date Value Abnormality Reference (Units ) Status SYNC LEUKOCYTES IN BLOOD BY AUTOMATED COUNT 08/11/2024 09:25:29 8.45 4.00-10.80 (K/uL) Final Segs 08/11/2024 09:25:29 74.5 40.0-75.0 (%) Final Lymphs % 08/11/2024 09:25:29 17.8 Below low normal 18.0-42.0 (%) Final Monos 08/11/2024 09:25:29 6.4 1.0-11.0 (%) Final Eosinophils 08/11/2024 09:25:29 0.8 0.0-6.0 (%) Final Basos 08/11/2024 09:25:29 0.5 0.0-2.0 (%) Final Absolute Segs 08/11/2024 09:25:29 6.30 1.80-7.70 (K/uL) Final Lymphs, absolute 08/11/2024 09:25:29 1.50 1.00-4.80 (K/ul) Final Monos, Abs 08/11/2024 09:25:29 0.54 0.00-1.10 (K/uL) Final Eos, Abs 08/11/2024 09:25:29 0.07 0.00-0.70 (K/uL) Final Basos, Abs 08/11/2024 09:25:29 0.04 0.00-0.20 (K/uL) Final Performing Location [facility] [place] [address]
--- OUTSIDE RECORDS SUMMARY | 2024-09-03 12:13 | External Medical Summary ---
Author Name Unknown Address Unknown Organization K01:[facility] [address] [place] [address] Laboratory Report Ordering Provider Test Date Status WILBERT PIÑA 08/11/2024 09:25:29 Final Normal: <30 mg/g creatinine< br/>High: 30-300 mg/g creatinine
Very High: >300 mg/g creatinine
Nephrotic: >2200 mg/g creatinine Observation Date Value Abnormality Reference (Units ) Status Albumin, Urine 08/11/2024 09:25:29 4.00 (mg/dL) Final Creatinine, Urine 08/11/2024 09:25:29 60 (mg/dL) Final Albumin/Creatinine [Mass Ratio] in Urine 08/11/2024 09:25:29 67 Above high normal <30 (mg/g Creat) Final Performing Location [facility] [address] [place] [address]
--- OUTSIDE RECORDS SUMMARY | 2024-09-03 12:13 | External Medical Summary ---
Author Name Unknown Address Unknown Organization K09:[facility]ATORY [place] [address] Laboratory Report Ordering Provider Test Date Status WILBERT PIÑA 08/11/2024 09:25:29 Final Observation Date Value Abnormality Reference (Units ) Status WBC, Total 08/11/2024 09:25:29 8.45 4.00-10.8 0 (K/uL) Final RBC 08/11/2024 09:25:29 3.75 3.85-5.15 (M/uL) Final Hemoglobin 08/11/2024 09:25:29 11.5 Below low normal 12 .0-15.3 (g/dL) Final HCT 08/11/2024 09:25:29 33.6 Below low normal 36. 0-45.2 (%) Final MCV 08/11/2024 09:25:29 89.6 81.5-97.5 (fL) Final MCH 08/11/2024 09:25:29 30.7 27.0-34.0 (pg) Final MCHC 08/11/2024 09:25:29 34.2 32.0-36.0 (g/dL) Final RDW 08/11/2024 09:25:29 13.6 11.5-15.5 (%) Final Platelets 08/11/2024 09:25:29 193 140-400 (K /uL) Final MPV 08/11/2024 09:25:29 10.1 6.6-11.1 ( fL) Final Performing Location [facility] [place] [address]
--- OUTSIDE RECORDS SUMMARY | 2024-09-03 12:13 | External Medical Summary ---
Author Name Unknown Address Unknown Organization K01:LABORATORY [facility] [place] - [address] [facility] [address] Laboratory Report Ordering Provider Test Date Status AMANDA REED III 08/18/2024 12:35:05 Final Observation Date Value Abnormality Reference (Units ) Status SARS Coronavirus 2 08/18/2024 12:35:05 Positive Abnormal N egative Final SARS-CoV2 Coronavirus RNA de tected by PCR (amplified probe). Test results reported to [facility].
This express test was developed and its performance characteristics determined by [facility]. It has not been cleared or approved [...] (RT-PCR) test, or a Centers for Disease Control-acceptable equivalent. The test is performed in a high complexity Clinical Laboratory Improvement Amendments-(CLIA) certified laboratory. The test is acceptable for SARS-CoV-2 diagnosis, surveillance, and travel within the [facility] and to most countries. Please check with local testing authorities about requirements before travel.

The validation of bronchial specimens, tracheal aspirates, and sputum for this assay was developed and performance characteristics determined by [facility]. The validation of alternate specimen types has not been cleared or approved by the U.S. Food and Drug Administration (FDA). It has been determined that such clearance is not necessary. Influenza virus A RNA [Prese nce] in Specimen by GHANSHYAM with probe detection 08/18/2024 12:35:05 Negative Negative Final No Influenza A RNA detected by PCR (amplified probe) Influenza virus B RNA [Prese nce] in Specimen by GHANSHYAM with probe detection 08/18/2024 12:35:05 Negative Negative Final No Influenza B RNA detected by PCR (amplified probe) Respiratory syncytial virus RNA [Identifier] in Specimen by GHANSHYAM with probe detection 08/18/2024 12:35:05 Negative Negative Final No Respiratory Syncytial Vir us RNA detected by PCR (amplified probe) Performing Location LABORATORY [facility] - [place] [address] [facility] [address]
--- OUTSIDE RECORDS SUMMARY | 2024-09-03 12:13 | External Medical Summary | Summary of Care ---
Author Name Unknown Organization [facility] Address [address] [facility] [place] [address] Phone [phone] Care Team Providers Care Seo Assistant Name Role Phone Lani Vargas PA-C Primary Care Provider [phone] Reason for Visit * Reason Comments Outpatient Testing Encounter Details Date Type Department Care Team (Late st Contact Info) Description 08/11/2024 9:40 AM EST Laboratory Laboratory Scenery [facility] [address] [place] [id number] [facility] [address] [place] [address] Track the Bet Other*[id number]; CKD (chronic kidney disease) stage 4, GFR 15-29 ml/min ([facility]); Hyponatremia Allergies Active Allergy Reactions Criticality Noted Date [...] times a day as needed. Active Methyl Msibwfakbx-Iqrp-Ep nthol 2-4-1 % External Patch 2 times [...] stage 4 chronic kidney disease, unspecified whether watermelon inspector insulin use (HCC) Inject 5 Units under [...] EST 07/29/19 25 Active OneTouch Delica Plus [id number] USE TWICE DAILY DIRECTED 200 Each 3 [...] mRNA, LNP-s, No Pre serve, 2-Dose Series (EasyCopay) 11/29/2020,11/08/2020 Covid-19, Mrna, Lnp-s, Pf, B ivalent, 30 Mcg, IM, 12 yrs and above (Pfizer) 08/10/2022 H1N1 2009 Influenza, IM 11/04/2009 Hepatitis B, 20+ yrs 07/13/2013,06/08/2013 Pneumococcal Conjugate Vacci ne, 20-valent (Ipbqmow20) 02/15/2023 Pneumococcal Polysaccharide PPV23 (Pneumovax) 04/26/2009 Seasonal [...] No 08/01/2024 Does the household have a [facility] source of income? (Household - for ages [...] 11:40 AM EST Office Visit Family Practice [facility] [address] [place] [address] [place] Jonathan SCALES MD [address] [place] [address] 09/05/2024 2:20 PM EST Office Visit Hepatology, [facility] [address] [facility] [place] [address] Deidra Mace MD 310 [facility] [place] [address] 09/14/2024 2:20 PM EST Office Visit Nephrology, [facility] 200 [facility] [place] [address] Cali Brown MD 200 [facility] [place] [address] 03/07/2025 2:40 PM EDT Office Visit Nephrology, [facility] [address] [place] [address] Cali Brown MD 200 [facility] [place] [address] Pending Results Name Type Priority Associated Diagnoses Date /Time MYCODE SUBSEQUENT ADULT Lab Routine MyCode Research Other*[id number] 08/11/2024 9:25 AM EST PTH Lab Routine CKD (chronic kidney disease) stage 4, GFR 15-29 ml/min ([facility]) 08/11/2024 9:25 AM EST RENAL FUNCTION PANEL Lab Routine CKD (chronic kidney disease) stage 4, GFR 15-29 ml/min ([facility]) 08/11/2024 9:25 AM EST PROTEIN/ CREATININE RATIO, URINE Lab Routine CKD (chronic kidney disease) stage 4, GFR 15-29 ml/min ([facility]) 08/11/2024 9:25 AM EST OSMOLALITY, URINE Lab Routine CKD (chronic kidney disease) stage 4, GFR 15-29 ml/min ([facility]) Hyponatremia 08/11/2024 9:25 AM EST URINALYSIS WITH MICROSCOPIC EXAM Lab Routine CKD (chronic kidney disease) stage 4, GFR 15-29 ml/min ([facility]) Hyponatremia 08/11/2024 9:25 AM EST 25-HYDROXY VITAMIN D Lab Routine CKD (chronic kidney disease) stage 4, GFR 15-29 ml/min ([facility]) 08/11/2024 9:25 AM EST MAGNESIUM Lab Routine CKD (chronic kidney disease) stage 4, GFR 15-29 ml/min ([facility]) 08/11/2024 9:25 AM EST OSMOLALITY, SERUM Lab Routine CKD (chronic kidney disease) stage 4, GFR 15-29 ml/min ([facility]) Hyponatremia 08/11/2024 9:25 AM EST MYCODE SST1 Lab Routine MyCode Research Other*[id number] 08/11/2024 9:25 AM EST MYCODE SST2 Lab Routine MyCode Research Other*[id number] 08/11/2024 9:25 AM EST ALKALINE PHOSPHATASE Lab Routine CKD (chronic kidney disease) stage 4, GFR 15-29 ml/min ([facility]) 08/11/2024 9:25 AM EST PROTEIN Lab Routine CKD (chronic kidney disease) stage 4, GFR 15-29 ml/min ([facility]) 08/11/2024 9:25 AM EST AST Lab Routine CKD (chronic kidney disease) stage 4, GFR 15-29 ml/min ([facility]) 08/11/2024 9:25 AM EST ALT Lab Routine CKD (chronic kidney disease) stage 4, GFR 15-29 ml/min ([facility]) 08/11/2024 9:25 AM EST BILIRUBIN, DIRECT Lab Routine CKD (chronic kidney disease) stage 4, GFR 15-29 ml/min ([facility]) 08/11/2024 9:25 AM EST BILIRUBIN, TOTAL Lab Routine CKD (chronic kidney disease) stage 4, GFR 15-29 ml/min ([facility]) 08/11/2024 9:25 AM EST Scheduled Procedures Name Priority Associated Diagnoses Date/Ti [...] 01/18/2024, , 12/13/2023, Additional history exists CKD HGB USE SMARTSET 73654 07/14/202508/11, 08/11/2024, 07/14/2024, Additional history exists CKD PHOS USE SMARTSET 34904 07/14/202506/26, 07/16/2023, 03/11/2023, Additional history exists Depression Screening 07/17/2025 07/17/2024 Mammogram 08/04/2025 08/04/2024, 05/27, 05/29/2022, Additional history exists Pap Smear 05/19/2026 05/19/2023, [...] Procedure Name Priority Date/Time Associated Diagnosis Comments DIFFERENTIAL, AUTOMATED Routine 08/11/2024 9:25 AM EST CKD (chronic kidney disease) stage 4, GFR 15-29 ml/min ([facility]) CBC Routine 08/11/2024 9:25 AM EST CKD (chronic kidney disease) stage 4, GFR 15-29 ml/min (HCC) CBC Routine 08/11/2024 9:25 AM EST CKD (chronic kidney disease) stage 4, GFR 15-29 ml/min (HCC) documented in this encounter Results * (ABNORMAL) DIFFERENTIAL, AUTOMATED (08/11/2024 9:25 AM EST) WBC 8.45 4.00 - 10.80 K/uL 08/11/2024 9:39 AM EST [facility]02 Neutrophils % 74.5 40.0 - 75.0 % 08/11/2024 9:39 AM EST [facility] 56-02 Lymphocytes % 17.8(L) 18.0 - 42.0 % 08/11/2024 9:39 AM EST [facility] 56-02 Monocytes % 6.4 1.0 - 11.0 % 08/11/2024 9:39 AM EST [facility] 56-02 Eosinophils % 0.8 0.0 - 6.0 % 08/11/2024 9:39 AM EST [facility]-02 Basophils % 0.5 0.0 - 2.0 % 08/11/2024 9:39 AM EST [facility] 56-02 Absolute Neutrophils 6.30 1.80 - 7.70 K/uL 08/11/2024 9:39 AM EST [facility] 56-02 Absolute Lymphocytes 1.50 1.00 - 4.80 K/ul 08/11/2024 9:39 AM EST [facility] 56-02 Absolute Monocytes 0.54 0.00 - 1.10 K/uL 08/11/2024 9:39 AM EST [facility] 56-02 Absolute Eosinophils 0.07 0.00 - 0.70 K/uL 08/11/2024 9:39 AM EST [facility] 56-02 Absolute Basophils 0.04 0.00 - 0.20 K/uL 08/11/2024 9:39 AM EST [facility]-02 Blood Venous blood specimen / Unknown Venipuncture / Unknown 08/11/2024 9:25 AM EST 08/11/2024 9:26 AM EST Cali Brown MD LAB BLOOD ORDERABLES Final Res ult [facility] 56- [address] [place] [address] * (ABNORMAL) CBC (08/11/2024 9:25 AM EST) WBC 8.45 4.00 - 10.80 K/uL 08/11/2024 9:39 AM EST [facility] 56- RBC 3.75 3.85 - 5.15 M/uL 08/11/2024 9:39 AM [facility] 56 HGB 11.5(L) 12.0 - 15.3 g/dL 08/11/2024 9:39 AM [facility] 56 HCT 33.6(L) 36.0 - 45.2 % 08/11/2024 9:39 AM [facility] 56 MCV 89.6 81.5 - 97.5 fL 08/11/2024 9:39 AM [facility] 56 MCH 30.7 27.0 - 34.0 pg 08/11/2024 9:39 AM [facility] 5602 MCHC 34.2 32.0 - 36.0 g/dL 08/11/2024 9:39 AM [facility] 56 RDW 13.6 11.5 - 15.5 % 08/11/2024 9:39 AM [facility] 56- PLT 193 140 - 400 K/uL 08/11/2024 9:39 AM [facility] 56- MPV 10.1 6.6 - 11.1 fL 08/11/2024 9:39 AM [facility] 56-02 Blood Venous blood specimen / Unknown Venipuncture / Unknown 08/11/2024 9:25 AM EST 08/11/2024 9:26 AM EST Cali Brown MD LAB BLOOD ORDERABLES Final Res ult [facility] [address] [facility] [address] documented in this encounter Visit Diagnoses Diagnosis MyCode Research Other*[id number] CKD (chronic kidney disease) stage 4, GFR 15-29 ml/min (HCC) Chronic kidney disease, Stage IV (severe) Hyponatremia Hyposmolality and/or hyponatremia documented in this encounter Care Teams Seo Assistant Relationship Specialty Start Date End Date Alicia October Tiera, DIONICIO [address] [facility] [address] PCP - General Physician Seam Stayer 08/03/24 documented as of this encounter
--- OUTSIDE RECORDS SUMMARY | 2024-09-03 12:13 | External Medical Summary | Summary of Care ---
Author Name Unknown Organization [facility] Address [address] [facility] [place] [address] Phone [phone] Care Team Providers Care Interlocking Machine Operator Name Role Phone Lani Vargas PA-C Primary Care Provider [phone] Encounter Details Date Type Department Care Team (Late st Contact Info) Description 08/14/2024 Orders Only PATIENT PORTAL DO NOT DELETE THIS DEPT USED BY [place]ES [id number] Allergies Active Allergy Reactions Criticality Noted Date [...] times a day as needed. Active Methyl Ehrdqhobtz-Atip-Qr nthol 2-4-1 % External Patch 2 times [...] stage 4 chronic kidney disease, unspecified whether intermediate insulin use (HCC) Inject 5 Units [...] EST 07/29/19 25 Active OneTouch Delica Plus Cxbxzf43M USE TWICE DAILY DIRECTED 200 Each 3 [...] mRNA, LNP-s, No Pre serve, 2-Dose Series (DealHamster) 11/29/2020,11/08/2020 Covid-19, Mrna, Lnp-s, Pf, B ivalent, 30 Mcg, IM, 12 yrs and above (Pfizer) 08/10/2022 H1N1 2009 Influenza, IM 11/04/2009 Hepatitis B, 20+ yrs 07/13/2013,06/08/2013 Pneumococcal Conjugate Vacci ne, 20-valent (Lymizcr07) 02/15/2023 Pneumococcal Polysaccharide PPV23 (Pneumovax) 04/26/2009 Seasonal [...] 11:40 AM EST Office Visit Family Practice [facility] [address] [place] [address] Jonathan Rees III, MD [address] [place] [address] 09/05/2024 2:20 PM EST Office Visit Hepatology, [facility] 132 [facility] [place] [address] Deidra Mace MD [address] [facility] [address] 09/14/2024 2:20 PM EST Office Visit Nephrology, [facility] [address] [place] [address] Cali Brown MD [address] [place] [address] 03/07/2025 2:40 PM EDT Office Visit Nephrology, [facility] [address] [place] [address] Cali Brown MD [address] [place] [address] Scheduled Procedures Name Priority Associated Diagnoses Date/Ti [...] Additional history exists CKD HGB USE SMARTSET 44867 08/11/202508/11, 08/11/2024, 07/14/2024, Additional history exists CKD PHOS USE SMARTSET 60684 08/11/202507/26, 07/14/2024, 07/16/2023, Additional history exists Pap [...] filedocumented as of this encounter Care Teams Interlocking Machine Operator Relationship Specialty Start Date End Date AliciaOctober DIONICIO Mott [address] [place] [address] PCP - General Physician Customer Retention Specialist 08/03/24 documented as of this encounter
--- OUTSIDE RECORDS SUMMARY | 2024-09-03 12:13 | External Medical Summary | Summary of Care ---
Author Name Unknown Organization [facility] Address [address] [facility] [place] [address] Phone [phone] Care Team Providers Care Sports Equipment Racker Name Role Phone Lani Vargas PA-C Primary Care Provider [phone] Reason for Visit * Reason Onset Date Comments Test Results 08/11/2024 Encounter Details Date Type Department Care Team (Late st Contact Info) Description 08/11/2024 Telephone Nephrology, [place] 200 [facility] [place] [address] Cali Brown MD 200 [facility] [place] [address] Test Results Allergies Active Allergy Reactions Criticality [...] times a day as needed. 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) Inject 5 Units under [...] EST 07/29/19 25 Active OneTouch Delica Plus Akqahs34J USE TWICE DAILY DIRECTED 200 Each 3 [...] one tablet every morning 08/11/19 25 Active Spironolactone 50 MG Oral Tablet (Aldactone)Indicat ions:Chronic kidney disease, stage 3b (HCC) Take 1 Tablet by mouth in the morning and 1 Tablet before bed 200 Tablet 1 5 10:34 AM EST 07/29/19 25 025 Discontin ued(Refil l) Furosemide 80 MG Oral Tablet (Lasix) Take 1 Tablet by mouth 2 times a day 200 Tablet 1 5 10:34 AM EST 07/29/19 25 025 Discontin ued(Refil l) Potassium Chloride ER 20 MEQ Oral Tablet Extended Release Take 1 Tablet by mouth 2 times a day. 200 Tablet 1 5 8:35 AM EST 08/02/19 025 Discontin ued(Medic ation/Dos e Changed) documented as of this encounter (statuses as [...] yrs 07/13/2013,06/08/2013 Pneumococcal Conjugate Vacci ne, 20-valent (Scgqirx87) 02/15/2023 Pneumococcal Polysaccharide PPV23 (Pneumovax) 04/26/2009 Seasonal [...] encounter Miscellaneous Notes * Telephone Encounter - Dorothea Kidd LPN - 08/11/2024 1:41 PM EST Pt is aware Magnesium is high and Potassium border line high per Dr Brown see recommendations Pt has stopped Jardiance already and will do so completely Pt will discontinue Potassium supplementation Pt will decrease Lasix 80 mg to once a day and Spironolactone 50 mg to once daily instead of bid as both had been Pt will repeat labs in 10 days Lab orders placed in [facility] lab system med list updated to reflect these changes Pt verbalizes understanding with read back of changes to nurse * Telephone Encounter - Dorothea Kidd LPN - 08/11/2024 1:33 PM EST ----- Message from Cali Brown [...] 11:40 AM EST Office Visit Family Practice [facility] 200 [facility] [place] [address] [place] Jonathan SCALES MD 200 [facility] [place] [address] 09/05/2024 2:20 PM EST Office Visit Hepatology, [facility] [address] [place] [address] Deidra Mace MD 310 [facility] [place] [address] 09/14/2024 2:20 PM EST Office Visit Nephrology, [facility] 200 [facility] [place] [address] Cali Brown MD [address] [place] [address] 03/07/2025 2:40 PM EDT Office Visit Nephrology, [place] [address] [place] [address] [address] Cali Brown MD 200 [facility] [place] [address] Scheduled Orders Name Type Priority Associated Diagnoses Orde r Schedule RENAL FUNCTION PANEL Lab Routine Chronic kidney disease, stage 3b (HCC) Hypermagnesemia Expected: 08/11/2024 (Approximate), Expires: 08/11/2025 MAGNESIUM Lab Routine Chronic kidney disease, stage 3b (HCC) Hypermagnesemia Expected: 08/11/2024 (Approximate), Expires: 08/11/2025 Scheduled Procedures Name Priority Associated [...] Additional history exists CKD HGB USE SMARTSET 42388 08/11/202508/11, 08/11/2024, 07/14/2024, Additional history exists CKD PHOS USE SMARTSET 35454 08/11/202507/26, 07/14/2024, 07/16/2023, Additional history exists Pap [...] of this encounter Visit Diagnoses Diagnosis Chronic kidney disease, stage 3b (HCC)- Primary Hypermagnesemia Disorders of magnesium metabolism documented in this encounter Care Teams Sports Equipment Racker Relationship Specialty Start Date End Date Alicia Lani DIONICIO Mott [address] [place] [address] PCP - General Physician Machine Guide Base Winder 08/03/24 documented as of this encounter
--- OUTSIDE RECORDS SUMMARY | 2024-09-03 12:13 | External Medical Summary | Summary of Care ---
Author Name Unknown Organization [facility] Address [address] [place] [address] Phone [phone] Care Team Providers Care Supervisor Toy Parts Former Name Role Phone Lani Vargas PA-C Primary Care Provider [phone] Reason for Visit * Reason Onset Date Comments Back Pain 08/14/2024 Vaginal spotting Encounter Details Date Type Department Care Team (Late st Contact Info) Description 08/14/2024 Telephone Care Coordination and Integration [address] [place], [place] [phone] Loretta Sellers LPN [address] [place] [address] Back Pain (Vaginal spotting) Allergies Active Allergy Reactions Criticality Noted Date Comments Empagliflozin 08/14/2024 Muscle cramps. Not to be prescribed per nephrology. Metolazone 07/16/2023 Severe Electrolyte imbalance needing Hospital admission Morphine Sulfate Nausea/vomiting 04/26/2009 documented as of this encounter (statuses as of 08/16/2024) Medications analgesic balm (BLAINE JENNINGS) 15% OINTIndications:Kn [...] times a day as needed. Active Methyl Jhfezigpjc-Tqaq-Mx nthol 2-4-1 % External Patch 2 times [...] 4 chronic kidney disease, unspecified whether long chain quiller tender insulin use (HCC) Inject 5 Units under [...] EST 07/29/19 25 Active OneTouch Delica Plus Wknzku24U USE TWICE DAILY DIRECTED 200 Each 3 [...] as of this encounter (statuses as of 08/16/2024) Active Problems Problem Noted Date Diagnosed Date [...] as of this encounter (statuses as of 08/16/2024) Resolved Problems Problem Noted Date Diagnosed Date [...] as of this encounter (statuses as of 08/16/2024) Immunizations Name Administration Dates Next Due COVID-19 mRNA, LNP-s, No Pre serve, 2-Dose Series ([employer]) 11/29/2020,11/08/2020 Covid-19, Mrna, Lnp-s, Pf, B ivalent, 30 Mcg, IM, 12 yrs and above (Pfizer) 08/10/2022 H1N1 2009 Influenza, IM 11/04/2009 Hepatitis B, 20+ yrs 07/13/2013,06/08/2013 Pneumococcal Conjugate Vacci ne, 20-valent (Uylnmpr75) 02/15/2023 Pneumococcal Polysaccharide PPV23 (Pneumovax) 04/26/2009 Seasonal [...] Telephone Encounter - Loretta Sellers LPN - 08/16/2024 1:05 PM EST Spoke to patient in follow up today The bleeding stopped at this time Back and pelvic pain has eased up with the cessation of spotting Because was recommended to be seen for this I have advised her to make sure to discuss this with PCP on Friday 08/18 at her visit Patient verbalizes understanding and agrees to plan * Telephone Encounter - Lani Vargas PA-C - 08/14/2024 6:58 PM EST Please call patient and have her get an appointment to better evaluate this current situation * Telephone Encounter - Loretta Sellers LPN - 08/14/2024 3:56 PM EST Case mgmt follow up with patient She is reporting worsening of her chronic back pain over the past few days Rating 7/10, sometimes constant and sometimes intermittent She is taking her Tramadol 50 mg 1 tablet daily. She really tries not to take more than that despite her constant pain She is also reporting new vaginal spotting Brownish in color over the past 2-3 days On her pad about the size of quarter but has been more at times Last PAP 2022 She is also having low pelvic cramping intermittently since spotting She states that since her 20's has never really had regular periods and has not had any bleeding for many years until now Afebrile Denies chest pain Some mild DAMICO which is improved from previous Tickle in her throat lately which causes her to cough a little Please provide any further recommendations for her increase in pain and now new spotting. documented in this encounter Plan of Treatment Upcoming Encounters Date Type Department Care Team (Late st Contact Info) Description 08/18/2024 11:40 AM EST Office Visit Family Practice [facility] [address] [place] [address] Jonathan Rees III, MD [address] [place] [address] [address] 09/05/2024 2:20 PM EST Office Visit Hepatology, [facility] 132 [facility] [place] [address] Deidra Mace MD 310 [facility] [place] [address] 09/14/2024 2:20 PM EST Office Visit Nephrology, [facility] [address] [place] [address] Cali Brown MD [address] [place] [address] 03/07/2025 2:40 PM EDT Office Visit Nephrology, [facility] [address] [place] [address] [address] Cali Brown MD [address] [place], [place] [address] Scheduled Procedures Name Priority Associated Diagnoses Date/Ti [...] Additional history exists CKD HGB USE SMARTSET 02583 08/11/202508/11, 08/11/2024, 07/14/2024, Additional history exists CKD PHOS USE SMARTSET 99649 08/11/202507/26, 07/14/2024, 07/16/2023, Additional history exists Pap [...] filedocumented as of this encounter Care Teams Supervisor Toy Parts Former Relationship Specialty Start Date End Date AliciaOctober DIONICIO Mott [address] [place] [address] PCP - General Physician Gambreler 08/03/24 documented as of this encounter
--- OUTSIDE RECORDS SUMMARY | 2024-09-03 12:14 | External Medical Summary | Summary of Care ---
Author Name Unknown Organization [facility] Address [address] [facility] [place] [address] Phone [phone] Care Team Providers Care Senior Linux Administrator Name Role Phone Cabrera SCALES MD, Jonathan Potter Primary Care Provider [phone] Reason for Visit * Reason Onset Date Comments Medication Refill 07/27/2024 Encounter Details Date Type Department Care Team (Late st Contact Info) Description 07/27/2024 Refill [facility] [address] [facility] [place] [address] Jonathan Rees III, MD 200 [facility] [place] [address] Chronic thoracic back pain, unspecified back pain laterality Allergies Active Allergy Reactions Criticality Noted Date Comments Metolazone 07/16/2023 Severe Electrolyte imbalance needing Hospital admission Morphine Sulfate Nausea/vomiting 04/26/2009 documented as of this encounter (statuses as of 08/02/2024) Medications analgesic balm (BLAINE JENNINGS) 15% OINTIndications:K [...] 02/18/20 23 1:42 PM EDT 023 Active Additional Information Patient not taking.Reported on 08/01/2024 Docusate Sodium 100 MG Oral Capsule (Colace)Indicatio ns:Constipation, unspecified constipation type Take 1 Capsule by mouth 2 times a day as needed. Active Methyl Wucxleoptf-Hvjo-L enthol 2-4-1 % External Patch 2 times [...] SKIN daily in the morning, Reported on 08/01/2024 NovoLOG FlexPen 100 UNIT/ML Subcutaneous Solution Pen-injector (insulin aspart)Indication s:Type 2 diabetes mellitus with stage 4 chronic kidney disease, unspecified whether automatic brine mixer operator insulin use (HCC) Inject 5 Units under the skin in the morning and 5 Units at noon and 5 Units in the evening. Inject with meals. 15 mL 3 11/10/19 24 2:17 PM EDT 023 Active Additional Information Patient taking differently:5 Units SubcutaneousBID(Non-Specified), Reported on 08/01/2024 Multivitamin Adult Oral Tablet Take 1 Tablet by mouth in the morning. Active Empagliflozin 10 MG Oral Tablet (Jardiance) Take 1 Tablet by mouth in the morning. 90 Tablet 3 07/31/19 25 11:11 AM EST 024 Active Additional Information Patient not taking.Reported on 08/01/2024 Pantoprazole Sodium 20 MG Oral Tablet Delayed [...] 2 times a day. 400 g 6 024 Active Rosuvastatin Calcium 5 MG Oral Tablet (Crestor)Indicati ons:Hyperlipidemi a, unspecified hyperlipidemia type Take 1 Tablet by mouth in the morning. 90 Tablet 3 07/28/19 25 2:50 PM EST 024 Active Potassium Chloride ER 20 MEQ Oral Tablet Extended Release Take 1 Tablet by mouth 2 times a day. Active Eliquis 5 MG Oral Tablet Take by one tablet by mouth every 12 hours . 180 Tablet 3 01/28/20 24 6:35 AM EDT 023 2024 Discontinued(R efill) OneTouch Delica Plus [id number] USE TWICE DAILY 200 Each 3 01/14/20 24 6:55 AM EDT 023 2024 Discontinued(R efill) OneTouch Verio In Vitro Strip (Glucose Blood) USE DIRECTED TWO TIMES A DAY 200 Strip 3 02/11/20 24 2:03 PM EDT 023 2024 Discontinued(R efill) Spironolactone 50 MG Oral Tablet (Aldactone)Indica tions:Chronic kidney disease, stage 3b (HCC) Take 2 Tablets by mouth in the morning. 180 Tablet 3 01/26/20 24 6:32 PM EDT 023 2024 Discontinued(R efill) traMADol HCl 50 MG Oral Tablet (Ultram)Indicatio ns:Chronic thoracic back pain, unspecified back pain laterality TAKE 1 TABLET BY MOUTH EVERY 6 HOURS NEEDED FOR MODERATE PAIN 30 Tablet 024 2024 Discontinued Furosemide 80 MG Oral Tablet (Lasix) Take 1 Tablet by mouth 2 times a day. 024 2024 Discontinued(R efill) documented as of this encounter (statuses as of 08/02/2024) Active Problems Problem Noted Date Diagnosed Date [...] as of this encounter (statuses as of 08/02/2024) Resolved Problems Problem Noted Date Diagnosed Date [...] as of this encounter (statuses as of 08/02/2024) Immunizations Name Administration Dates Next Due COVID-19 mRNA, LNP-s, No Pre serve, 2-Dose Series (Pfizer) 11/29/2020,11/08/2020 Covid-19, Mrna, Lnp-s, Pf, B ivalent, 30 Mcg, IM, 12 yrs and above (Pfizer) 08/10/2022 H1N1 2009 Influenza, IM 11/04/2009 Hepatitis B, 20+ yrs 07/13/2013,06/08/2013 Pneumococcal Conjugate Vacci ne, 20-valent ([id number]) 02/15/2023 Pneumococcal Polysaccharide PPV23 (Pneumovax) 04/26/2009 Seasonal [...] the money to buy more. Never true 01/07/20 25 Within the past 12 months, t [...] encounter Miscellaneous Notes * Telephone Encounter - Ming Alvarez, [facility] - 07/28/2024 6:56 PM ESTPending Prescriptions: Disp Refills traMADol HCl 50 MG Oral Tablet (Ultram) 30 Tab*0 Sig: Take 1 Tablet by mouth every 6 hours as needed for Pain, Moderate. * Telephone Encounter - Ming Alvarez [facility] - 07/28/2024 6:56 PM EST I have reviewed the patients controlled substance dispensing history in the Prescription Drug Monitoring Program in compliance with the [facility] regulations before prescribing a controlled substance. PDMP checked on 07/28/2024. Pending Prescriptions: Disp Refills traMADol HCl 50 MG Oral Tablet (Ultram) 30 Tab*0 Sig: Take 1 Tablet by mouth every 6 hours as needed for Pain, Moderate. Last Visit: 07/20/2024 (in office), Visit date not found (telemedicine) Next Visit: 08/18/2024 Date medication was last filled: 01/14/24 Date medication is due for refill: 01/21/24 Pharmacy: [facility] [address] [address] [address] [place] Is this request for a controlled [...] confirmatory testing. Please approve if appropriate. Thank You, Ming Acuna [facility] Clinical Pharmacist Centralized Clinical Pharmacy Services (CCPS) 07/28/2024, 6:56 PM * Telephone Encounter - Delroy Carvajal PHARM Tech - 07/28/2024 12:06 PM EST Pt calling to check on status of traMADol HCl 50 MG Oral Tablet (Ultram). Caller can be reached at [phone]. Thank you, Delroy Carvajal [employer] Centralized [facility] Pharmacy Services (formerly Telepharmacy) 07/28/2024, 12:06 PM * Telephone Encounter - Jayashree Medrano CPhT - 07/27/2024 12:21 PM EST Did you pend patient's preferred pharmacy and medication before forwarding?yes [facility] [address] [address] [facility] Pending Prescriptions: Disp Refills traMADol HCl 50 MG Oral Tablet (Ultram) 30 Tab*0 Sig: Take 1 Tablet by mouth every 6 hours as needed for Pain, Moderate. Last Visit: 07/20/2024 (in office), Visit date not found (telemedicine) Next Visit: 08/18/2024 If no future appointments scheduled, and last appointment is greater than a year ago, please schedule patient for a follow-up appointment Last date the medication was ordered: 01/14/2024 Is this request for a controlled substance?Yes, What was the last refill date 01/14/2024 w/ and dosage 50 and Urine Drug Screen was completed Urine [...] 02:20 PM TSH 1.67 05/31/2009 01:53 PM LDL 68 08/03/2022 02:20 PM LDL 50 11/15/2018 12:55 PM ALT 27 11/22/2023 10:12 AM ALT 22 11/15/2018 12:55 PM HGBA1C 5.9 (H) 05/19/2023 09:49 AM HGBA1C 10.8 (A) 08/07/2019 12:00 AM HGBA1C 9.5 (H) 11/15/2018 12:55 PM documented in this encounter Plan of Treatment Upcoming Encounters Date Type Department Care Team (Late st Contact Info) Description 08/04/2024 10:00 AM EST Imaging Radiology [address], [place] [address] [facility] [place] [address] 08/08/2024 12:30 PM EST Home Visit Care Coordination and Integration [address] [place] [address] Radha Vargas, [facility] [address] [place] [address] 08/11/2024 9:00 AM EST Office Visit Nephrology, [place] [address] [place] [address] Cali Brown MD [address] [place] [address] 08/18/2024 11:40 AM EST Office Visit Family Practice [facility] [address] [facility] [place] [address] Jonathan Rees III, MD [address] [facility] [place] [address] 09/05/2024 2:20 PM EST Office Visit Hepatology, [facility] [address] [facility] [place] [address] Deidra Mace MD [address] [place] [id number] 09/14/2024 2:20 PM EST Office Visit Nephrology, [facility] [address] [facility] [place] [address] Cali Brown MD [address] [facility] [place] [address] Scheduled Procedures Name Priority Associated Diagnoses Date/Ti me COLONOSCOPY FLEXIBLE PROXIMAL DIAGNOSTIC Recall Screen for colon cancer Health Maintenance Due Date Last Done Comments Fecal Occult Blood Test 2007 Sigmoidoscopy 2007 Hepatitis B Vaccine (3 of 3 - Risk 3-dose series) 12/06/2013 07/13/2013, 06/08/2013 Cologuard 05/03/2022 05/03/2019 Mammogram 06/17/2023 06/17/2022, 110 10/2021, 08/18/2018, Additional history exists HbA1c 11/18/2023 05/19/2023, 01/24, 08/03/2022, Additional history exists Albumin/Creatinine Ratio 02/17/2024 023, 01/27/2022, 11/15/2018, Additional history exists COVID-19 Vaccine ( season) 2024 08/10/2022, 11/29/2020, 11/08/2020 Diabetic Foot Exam 05/19/2024 05/19/2023, 1 , 02/25/2017, Additional history exists GFR 05/23/2024 11/22/2023, 06/26, 06/10/2023, Additional history exists CKD PHOS USE SMARTSET 34607 07/16/202406/26, 03/11/2023, 08/03/2022 CKD HGB USE SMARTSET 89012 11/21/202411/21, 07/16/2023, 07/16/2023, Additional history exists Diabetic Eye Exam 01/17/2025 01/18/2024, , 12/13/2023, Additional history exists Depression Screening 07/17/2025 07/17/2024 Pap Smear 05/19/2026 05/19/2023, 05/31/2009 Lipid Panel [...] laterality documented in this encounter Care Teams Senior Linux Administrator Relationship Specialty Start Date End Date Jonathan Rees III, MD [address] [facility] [place] [address] PCP - General 03/09/1996 documented as of this encounter
--- OUTSIDE RECORDS SUMMARY | 2024-09-03 12:14 | External Medical Summary ---
Author Name Unknown Address Unknown Organization [id number][facility] [place] [address] Laboratory Report Ordering Provider Test Date Status WANGBECKIENASRA 08/11/2024 09:25:29 Final Observation Date Value Abnormality Reference (Units ) Status Magnesium 08/11/2024 09:25:29 3.1 Above high normal 1. 5-2.6 (mg/dL) Final Performing Location [facility] [place] [address]
--- OUTSIDE RECORDS SUMMARY | 2024-09-03 12:14 | External Medical Summary | Summary of Care ---
Author Name Unknown Organization [facility] Address [address] [facility] [address] Phone [phone] Care Team Providers Care Internet E Commerce Specialist Name Role Phone Cabrera SCALES MD, Brianna Potter Primary Care Provider [phone] Reason for Visit * Reason Comments eRx-Medication Refill Encounter Details Date Type Department Care Team (Late st Contact Info) Description 07/28/2024 Refill Family Practice [facility] 200 [facility] [place] [address] Leon Grijalva, [facility] [address] Chronic thoracic back pain, unspecified back pain [...] times a day as needed. Active Methyl Ekevlflsts-Nlda-Y enthol 2-4-1 % External Patch 2 times [...] 4 chronic kidney disease, unspecified whether intermediate frame tender insulin use (HCC) Inject 5 Units [...] in the morning. 90 Tablet 3 07/28/19 2:50 PM EST 024 Active Eliquis 5 MG Oral Tablet Take by 1 tablet by mouth every 12 hours 200 Tablet 1 07/31/19 25 11:09 AM EST 025 Active OneTouch Delica Plus [id number] USE TWICE DAILY DIRECTED 200 Each 3 07/31/19 10:34 AM EST 025 Active OneTouch Verio In Vitro Strip (Glucose Blood) USE DIRECTED TWO TIMES A DAY 200 Strip 3 07/31/19 10:34 AM EST 025 Active Spironolactone 50 MG Oral Tablet (Aldactone)Indica tions:Chronic kidney disease, stage 3b (HCC) Take 1 Tablet by mouth in the morning and 1 Tablet before bed 200 Tablet 1 07/31/19 25 10:34 AM EST 025 Active Furosemide 80 MG Oral Tablet (Lasix) Take 1 Tablet by mouth 2 times a day 200 Tablet 1 07/31/19 25 10:34 AM EST 025 Active traMADol HCl 50 MG Oral Tablet (Ultram)Indicatio ns:Chronic thoracic back pain, unspecified back pain laterality TAKE 1 TABLET BY MOUTH EVERY 6 HOURS NEEDED FOR MODERATE PAIN 30 Tablet 025 Active traMADol HCl 50 MG Oral Tablet (Ultram)Indicatio ns:Chronic thoracic back pain, unspecified back pain laterality TAKE 1 TABLET BY MOUTH EVERY 6 HOURS NEEDED FOR MODERATE PAIN 30 Tablet 024 2024 Discontinued Potassium Chloride ER 20 MEQ Oral Tablet Extended Release Take 1 Tablet by mouth 2 times a day. 2024 Discontinued(R efill) documented as of this [...] yrs 07/13/2013,06/08/2013 Pneumococcal Conjugate Vacci ne, 20-valent ([id number]) 02/15/2023 Pneumococcal Polysaccharide PPV23 (Pneumovax) 04/26/2009 Seasonal [...] Encounter - Brianna Patel III, MD - 08/02/2024 8:37 AM ESTSigned Prescriptions: Disp Refills traMADol HCl 50 MG Oral Tablet (Ultram) 30 Tab*0 Sig: TAKE 1 TABLET BY MOUTH EVERY 6 HOURS NEEDED FOR MODERATE PAINAuthorizing Provider: BRIANNA PATEL III-------- * Telephone Encounter - Ming Alvarez, [facility] - 07/31/2024 8:31 AM ESTPending Prescriptions: Disp Refills traMADol HCl 50 MG Oral Tablet 30 Tab*0 Sig: TAKE 1 TABLET BY MOUTH EVERY 6 HOURS NEEDED FOR MODERATE PAIN * Telephone Encounter - Ming Alvarez, [facility] - 07/31/2024 8:30 AM EST I have reviewed the patients controlled substance dispensing history in the Prescription Drug Monitoring Program in compliance with the [facility] regulations before prescribing a controlled substance. PDMP checked on 07/31/2024. Pending Prescriptions: Disp Refills traMADol HCl 50 MG Oral Tablet (Ultram) [*30 Tab*0 Sig: TAKE 1 TABLET BY MOUTH EVERY 6 HOURS NEEDED FOR MODERATE PAIN Last Visit: 07/20/2024 (in office), Visit date not found (telemedicine) Next Visit: 08/18/2024 Date medication was last filled: 01/14/24 Date medication is due for refill: 01/21/24 [facility]: [facility] [address] [place] Is this request for a [...] approve if appropriate. Thank You, Ming Acuna [facility] Clinical Pharmacist Centralized Clinical Pharmacy Services (CCPS) 07/31/2024, 8:30 AM documented in this encounter Plan of Treatment Upcoming Encounters Date Type Department Care Team (Late st Contact Info) Description 08/04/2024 10:00 AM EST Imaging Radiology [address] [place] [address] 08/08/2024 12:30 PM EST Home Visit Care Coordination and Integration [address] [place] [address] Radha Vargas [facility] Health Mediation Commissioner [address] [place] [address] 08/11/2024 9:00 AM EST Office Visit Nephrology, [facility] 200 [facility] [place] [address] Cali Brown MD 200 [facility] [place] [address] 08/18/2024 11:40 AM EST Office Visit Family Practice [facility] [address] [facility] [place] [address] Brianna Patel III, MD 200 [facility] [place] [address] 09/05/2024 2:20 PM EST Office Visit Hepatology, [facility] [address] [place] [address] Deidra Mace MD [address] [place] [address] 09/14/2024 2:20 PM EST [facility] [address] [facility] [place] [address] Cali Brown MD [address] [place] [address] Scheduled Procedures Name Priority Associated Diagnoses Date/Ti me COLONOSCOPY FLEXIBLE PROXIMAL DIAGNOSTIC Recall Screen for colon cancer Health Maintenance Due Date Last Done Comments Fecal Occult Blood Test 2007 Sigmoidoscopy 2007 Hepatitis B Vaccine (3 of 3 - Risk 3-dose series) 12/06/2013 07/13/2013, 06/08/2013 Cologuard 05/03/2022 05/03/2019 Mammogram 06/17/2023 06/17/2022, 10/2021, 08/18/2018, Additional history exists HbA1c 11/18/2023 05/19/2023, 01/24, 08/03/2022, Additional history exists Albumin/Creatinine Ratio 02/17/2024 023, 01/27/2022, 11/15/2018, Additional history exists COVID-19 Vaccine ( season) 2024 08/10/2022, 11/29/2020, 11/08/2020 Diabetic Foot Exam 05/19/2024 05/19/2023, 1 , 02/25/2017, Additional history exists GFR 05/23/2024 11/22/2023, 06/26, 06/10/2023, Additional history exists CKD PHOS USE SMARTSET 83098 07/16/202406/26, 03/11/2023, 08/03/2022 CKD HGB USE SMARTSET 53062 11/21/202411/21, 07/16/2023, 07/16/2023, Additional history exists Diabetic [...] laterality documented in this encounter Care Teams Internet E Commerce Specialist Relationship Specialty Start Date End Date Brianna Patel III, MD [address] [place] [address] PCP - General 03/09/1996 documented as of this encounter
--- OUTSIDE RECORDS SUMMARY | 2024-09-03 12:14 | External Medical Summary | Summary of Care ---
Author Name Unknown Organization [facility] Address [address] [place] [address] Phone [phone] Care Team Providers Care Peripatologist Name Role Phone Lani Vargas PA-C Primary Care Provider [phone] Encounter Details Date Type Department Care Team (Late st Contact Info) Description 08/08/2024 12:30 PM EST Home Visit Care Coordination and Integration [address] [place] [address] Radha Vargas [facility] Health [employer] [address] [place], [place] [id number] Allergies Active Allergy Reactions Criticality Noted Date Comments Metolazone 07/16/2023 Severe Electrolyte imbalance needing Hospital admission Morphine Sulfate Nausea/vomiting 04/26/2009 documented as of this encounter (statuses as of 08/08/2024) Medications analgesic balm (BLAINE JENNINGS) 15% OINTIndications:Kn [...] 3 1:42 PM EDT 02/10/20 23 Active Additional Information Patient not taking.Reported on 08/01/2024 Docusate Sodium 100 MG Oral Capsule (Colace)Indication s:Constipation, unspecified constipation type Take 1 Capsule by mouth 2 times a day as needed. 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) Inject 5 Units [...] 3 5 11:11 AM EST 08/04/19 24 Active Additional Information Patient not taking.Reported on [...] EST 07/29/19 25 Active OneTouch Delica Plus Miryly34W USE TWICE DAILY DIRECTED 200 Each 3 [...] as of this encounter (statuses as of 08/08/2024) Active Problems Problem Noted Date Diagnosed Date [...] as of this encounter (statuses as of 08/08/2024) Resolved Problems Problem Noted Date Diagnosed Date [...] as of this encounter (statuses as of 08/08/2024) Immunizations Name Administration Dates Next Due COVID-19 mRNA, LNP-s, No Pre serve, 2-Dose Series (Smart Pipe) 11/29/2020,11/08/2020 Covid-19, Mrna, Lnp-s, Pf, B ivalent, 30 Mcg, IM, 12 yrs and above (Pfizer) 08/10/2022 H1N1 2009 Influenza, IM 11/04/2009 Hepatitis B, 20+ yrs 07/13/2013,06/08/2013 Pneumococcal Conjugate Vacci ne, 20-valent ([id number]) 02/15/2023 Pneumococcal Polysaccharide PPV23 (Pneumovax) 04/26/2009 Seasonal [...] PM EDT documented as of this encounter Progress Notes * Radha Vargas [facility] - 08/08/2024 6:10 PM EST Telemedicine visit: No [facility] [employer] [facility] (ANA) documentation: CHW home visit this date to completed application for assistance. CHW saw pt and completed the hard copy of the application for the Assistance Office. Pt's service where she lives is sketchy and CHW's internet was also unable to be able to pull up. We were unable to fill application out on line. CHW will deliver the hard copy to the local assistance office tomorrow. Pt is unable to fill out due to low vision and difficulty with seeing to read and fill out the small print. CHW will check back in about 3 weeks to see if pt had heard anything about SNAP or shultz assistance. documented in this encounter Plan of Treatment Upcoming Encounters Date Type Department Care Team (Late st Contact Info) Description 08/11/2024 9:00 AM EST Office Visit Nephrology, [facility] [address] [place] [address] Cali Brown MD [address] [place] [address] 08/18/2024 11:40 AM EST Office Visit Family Practice [facility] [address] [place] [address] Jonathan Rees III, MD 200 [facility] [place] [address] 09/05/2024 2:20 PM EST Office Visit Hepatology, [facility] 132 [facility] [place] [address] Deidra Mace MD 310 [facility] [address] [place] [address] 09/14/2024 2:20 PM EST Office Visit Nephrology, [facility] [address] [place] [address] Cali Brown MD [address] [place] [address] Scheduled Procedures Name Priority Associated Diagnoses Date/Ti [...] Additional history exists CKD HGB USE SMARTSET 75318 07/14/202507/14, 11/22/2023, 07/16/2023, Additional history exists CKD PHOS USE SMARTSET 73746 07/14/202506/26, 07/16/2023, 03/11/2023, Additional history exists Depression [...] filedocumented as of this encounter Care Teams Peripatologist Relationship Specialty Start Date End Date Alicia October DIONICIO Mott [address] [place] [address] PCP - General Physician [employer] 08/03/24 documented as of this encounter
--- OUTSIDE RECORDS SUMMARY | 2024-09-03 12:14 | External Medical Summary ---
Author Name Unknown Address Unknown Organization K09[facility] [address] Laboratory Report Ordering Provider Test Date Status WILBERT PIÑA 08/11/2024 09:25:29 Final Observation Date Value Abnormality Reference (Units ) Status AST (Aspartate aminotransferase) 08/11/2024 09:25:29 42 Above high normal 10-35 (U/L) Final Performing Location [facility] [place] [address]
--- OUTSIDE RECORDS SUMMARY | 2024-09-03 12:14 | External Medical Summary ---
Author Name Unknown Address Unknown Organization K01:[facility] [place] [address] [place] [address] Laboratory Report Ordering Provider Test Date Status WILBERT PIÑA 08/11/2024 09:25:29 Final Observation Date Value Abnormality Reference (Units) Status Hepatitis B virus surface Ab [Units/volume] in Serum or Plasma by Immunoassay 08/11/2024 09:25:29 126.0 (mIU/mL) Final Hepatitis B virus surface Ab [Presence] in Serum by Immunoassay 08/11/2024 09:25:29 Positive Final HEPATITIS B SURFACE ANTIBODY, INTERPRETATION 08/11/2024 09:25:29 Immune to Hepatitis B Virus Final POSITIVE: >=11.5 mIU/mL
INDETERMINATE: 8.5-<11.5 mIU/mL
NEGATIVE: <8.5 mIU/mL Performing Location [facility] [place] [facility] [place] [facility] [place] [address] [place] [address]
--- OUTSIDE RECORDS SUMMARY | 2024-09-03 12:14 | External Medical Summary | Summary of Care ---
Author Name Unknown Organization [facility] Address [address] [address] [address] Phone [phone] Care Team Providers Care Boring Machine Operator Double End Name Role Phone Lani Vargas PA-C Primary Care Provider [phone] Reason for Visit * Reason Onset Date Comments Med Request 07/28/2024 Encounter Details Date Type Department Care Team (Late st Contact Info) Description 07/28/2024 Telephone Family Practice [facility] [address] [facility] [place] [address] Jonathan Rees III, MD 200 [place] [address] Med Request Allergies Active Allergy Reactions Criticality Noted Date Comments Metolazone 07/16/2023 Severe Electrolyte imbalance needing Hospital admission Morphine Sulfate Nausea/vomiting 04/26/2009 documented as of this encounter (statuses as of 08/04/2024) Medications analgesic balm (BLAINE JENNINGS) 15% OINTIndications:K [...] times a day as needed. Active Methyl Riruqmhcnd-Arlg-M enthol 2-4-1 % External Patch 2 times [...] stage 4 chronic kidney disease, unspecified whether long-term insulin use (HCC) Inject 5 Units under [...] Tablet 3 07/31/19 25 11:11 AM EST 01/10/2 024 Active Additional Information Patient not taking.Reported [...] 07/28/19 25 2:50 PM EST 024 Active traMADol HCl 50 MG Oral Tablet (Ultram)Indicatio ns:Chronic thoracic back pain, unspecified back pain laterality TAKE 1 TABLET BY MOUTH EVERY 6 HOURS NEEDED FOR MODERATE PAIN 30 Tablet 024 2024 Discontinued Potassium Chloride ER 20 MEQ Oral Tablet Extended Release Take 1 Tablet by mouth 2 times a day. 2024 Discontinued(R efill) documented as of this encounter (statuses as of 08/04/2024) Active Problems Problem Noted Date Diagnosed Date Food insecurity 07/05/2023 Overview: Per [facility] Protocol Chronic diastolic heart failure [...] as of this encounter (statuses as of 08/04/2024) Resolved Problems Problem Noted Date Diagnosed Date [...] as of this encounter (statuses as of 08/04/2024) Immunizations Name Administration Dates Next Due COVID-19 mRNA, LNP-s, No Pre serve, 2-Dose Series ([employer]) 11/29/2020,11/08/2020 Covid-19, Mrna, Lnp-s, Pf, B ivalent, 30 Mcg, IM, 12 yrs and above (Pfizer) 08/10/2022 H1N1 2009 Influenza, IM 11/04/2009 Hepatitis B, 20+ yrs 07/13/2013,06/08/2013 Pneumococcal Conjugate Vacci ne, 20-valent ([id number]) 02/15/2023 Pneumococcal Polysaccharide PPV23 (Pneumovax) 04/26/2009 Seasonal [...] encounter Miscellaneous Notes * Telephone Encounter - Tracie Mendoza LPN - 08/04/2024 1:09 PM EST Patient aware and verbalized understanding * Telephone Encounter - Jonathan Rees III, MD - 08/02/2024 8:58 AM EST Per October note looks like furosemide is the diuretic not torsemide * Telephone Encounter - Arelis Chahal LPN - 07/31/2024 6:55 PM EST Patient has furosemide 80 mg BID on her current med list and it was just refilled on 07/29/24. Pleaseadvise if furosemide is the correct diuretic or if she is to be on torsemide. * Telephone Encounter - Delroy Carvajal, promotions assistant - 07/28/2024 12:07 PM EST Patient requesting refills for Torsemide 20 MG Oral Tablet (Demadex) . Upon chart review, medication is listed as discontinued, with discontinuation reason as "Medication/Dose Changed". Please adviseif you wish to continue this therapy for the patient. Thank you, Delroy Carvajal Border Inspector [facility] ([facility]) 07/28/2024, 12:08 PM documented in this encounter Plan of Treatment Upcoming Encounters Date Type Department Care Team (Late st Contact Info) Description 08/08/2024 12:30 PM EST Home Visit Care Coordination and Integration [address] [place] [address] Radha Vargas Community Health Exhibit Preparator [address] [place] [address] 08/11/2024 9:00 AM EST Office Visit Nephrology [facility] [address] [place] [address] [address] Cali Brown MD [address] [place] [address] [address] 08/18/2024 11:40 AM EST Office Visit Family Practice [facility] [place] [address] [place] [address] [address] Jonathan Rees III, MD [address] [place] [address] 09/05/2024 2:20 PM EST Office Visit Hepatology, [facility] [address] [facility] [place] [address] Deidra Mace MD [address] [place], [place] [address] [address] 09/14/2024 2:20 PM EST Office Visit Nephrology, [facility] [place] [address] [place] [address] [address] Cali Brown MD [address] [place] [address] [address] Scheduled Procedures Name Priority Associated Diagnoses Date/Ti me COLONOSCOPY FLEXIBLE PROXIMAL DIAGNOSTIC Recall Screen for colon cancer Health Maintenance Due Date Last Done Comments Fecal Occult Blood Test 2007 Sigmoidoscopy 2007 Hepatitis B Vaccine (3 of 3 - Risk 3-dose series) 12/06/2013 07/13/2013, 06/08/2013 Cologuard 05/03/2022 05/03/2019 Mammogram 06/17/2023 06/17/2022, 11/0 10/2021, 08/18/2018, Additional history exists HbA1c 11/18/2023 05/19/2023, 01/24, 08/03/2022, Additional history exists Albumin/Creatinine Ratio 02/17/2024 023, 01/27/2022, 11/15/2018, Additional history exists COVID-19 Vaccine ( season) 2024 08/10/2022, 11/29/2020, 11/08/2020 Diabetic Foot Exam 05/19/2024 05/19/2023, 1 , 02/25/2017, Additional history exists GFR 05/23/2024 11/22/2023, 06/26, 06/10/2023, Additional history exists CKD PHOS USE SMARTSET 57010 07/16/202406/26, 03/11/2023, 08/03/2022 CKD HGB USE SMARTSET 81505 11/21/202411/21, 07/16/2023, 07/16/2023, Additional history exists Diabetic [...] filedocumented as of this encounter Care Teams Boring Machine Operator Double End Relationship Specialty Start Date End Date AliciaOctober Tiera, DIONICIO [address] [place] [address] PCP - General Physician Exhibit Preparator 08/03/24 documented as of this encounter
--- OUTSIDE RECORDS SUMMARY | 2024-09-03 12:14 | External Medical Summary | Summary of Care ---
Author Name Unknown Organization [facility] Address [address] [place] [address] Phone [phone] Care Team Providers Care Police Magistrate Name Role Phone Cabrera SCALES MD, Jnoathan Potter Primary Care Provider [phone] Encounter Details Date Type Department Care Team (Late st Contact Info) Description 08/01/2024 4:00 PM EST Home Visit Care Coordination and Integration [address] [place], [place] [id number] Radha Vargas [facility] Health Grooming Assistant [address] [place] [address] Allergies Active Allergy Reactions Criticality Noted Date Comments Metolazone 07/16/2023 Severe Electrolyte imbalance needing Hospital admission Morphine Sulfate Nausea/vomiting 04/26/2009 documented as of this encounter (statuses as of 08/02/2024) Medications analgesic balm (BLAINE JENNINGS) 15% OINTIndications:Kn [...] times a day as needed. 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 Active Eliquis 5 MG Oral Tablet Take by 1 tablet by mouth every 12 hours 200 Tablet 1 5 11:09 AM EST 07/29/19 25 Active OneTouch Delica Plus Wuqdes45G USE TWICE DAILY DIRECTED 200 Each 3 [...] 5 10:34 AM EST 07/29/19 25 Active documented as of this encounter [...] mRNA, LNP-s, No Pre serve, 2-Dose Series ([employer]) 11/29/2020,11/08/2020 Covid-19, Mrna, Lnp-s, Pf, B ivalent, 30 Mcg, IM, 12 yrs and above (Pfizer) 08/10/2022 H1N1 2009 Influenza, IM 11/04/2009 Hepatitis B, 20+ yrs 07/13/2013,06/08/2013 Pneumococcal Conjugate Vacci ne, 20-valent ([id number]) 02/15/2023 Pneumococcal Polysaccharide PPV23 (Pneumovax) 04/26/2009 Seasonal [...] No 08/01/2024 Does the household have a [facility] source of income? (Household - for ages [...] Reading Time Taken Comments Blood Pressure 118/80 08/01/2024 5:03 PM EST Pulse 88 08/01/2024 5:03 PM EST Temperature 36.7 C (98 F) 08/01/2024 5:03 PM EST Respiratory Rate - - Oxygen Saturation 95% 08/01/2024 5:03 PM EST Inhaled Oxygen Concentration - - Weight - - Height - - Body Mass Index - - documented in this encounter Progress Notes * Radha Vargas, Community Health Grooming Assistant - 08/01/2024 5:06 PM EST Telemedicine visit: No Community Health Grooming Assistant (ANA) documentation: CHW completed home visit this date with pt. Pt has numerous steps to enter home and no sidewalks to get into the entrance. Pt lives in one story home with no steps inside. Pt is capable of accessing all areas of her home without difficulty. Ptdoes no use any devices during ambulation. Medication rec completed with no discrepancies. Pt has concerns about costs for he medications since changing her insurance coverage this year. CHW called the number on pt's insurance card for prescriptions and was able to get the out of pocket costs for each of the pt's medications for 100 day supply. Pt's out of pocket was about $150.00 every 100 days. Pt states that is high. Her insulins are $52.50 each for 100 day supply and she stated that was higher than what she was paying for them. CHW did put a referral in for Good RX program. Pt does not qualify for PACE/PACENET due to age restrictions. Pt stated she has not been able to get the MA application filled out. CHW will schedule a return visit next week to assist with that process. CHW told pt what information is needed to be able to complete process and explained that it takes about 2 hours to complete. CHW is also looking into any resources that assist with payment for insulin and diabetic supplies for pt. documented in this encounter Plan of Treatment Upcoming Encounters Date Type Department Care Team (Late st Contact Info) Description 08/04/2024 10:00 AM EST Imaging Radiology [facility] [address] [facility] [place] [address] [facility] [place] [address] 08/08/2024 12:30 PM EST Home Visit Care Coordination and Integration [address] [place] [facility] [place] [address] Radha Vargas Community Health Grooming Assistant [address] [facility] [address] 08/11/2024 9:00 AM EST Office Visit Nephrology, [place] [address] [place] [address] Cali Brown MD [address] [place] [address] 08/18/2024 11:40 AM EST Office Visit Family Practice [facility] 200 [place] [address] Jonathan Rees III, MD 200 [facility] [place], [place] [address] 09/05/2024 2:20 PM EST Office Visit Hepatology, [facility] [address] [facility] [place] [address] Deidra Mace MD [address] [place] [address] 09/14/2024 2:20 PM EST Office Visit Nephrology, [facility] 200 [facility] [place], [place] [address] Cali Brown MD 200 [place] [address] Scheduled Procedures Name Priority Associated Diagnoses Date/Ti [...] Additional history exists CKD PHOS USE SMARTSET 29838 07/16/202406/26, 03/11/2023, 08/03/2022 CKD HGB USE SMARTSET 86755 11/21/202411/21, 07/16/2023, 07/16/2023, Additional history exists Diabetic [...] filedocumented as of this encounter Care Teams Police Magistrate Relationship Specialty Start Date End Date Jonathan Rees III, MD [address] [place] [address] PCP - General 03/09/1996 documented as of this encounter
--- OUTSIDE RECORDS SUMMARY | 2024-09-03 12:14 | External Medical Summary ---
Author Name Unknown Address Unknown Organization [id number]:[facility] - [address] [address] Laboratory Report Ordering Provider Test Date Status BECKIE PIÑANASRA 08/11/2024 09:25:29 Final Observation Date Value Abnormality Reference (Units ) Status Osmolality 08/11/2024 09:25:29 321 Above high normal 2 78-305 (mOsm/kg) Final Performing Location [facility] - [address] [place] [address]
--- OUTSIDE RECORDS SUMMARY | 2024-09-03 12:14 | External Medical Summary ---
Author Name Unknown Address Unknown Organization K09:[facility] [place] [address] Laboratory Report Ordering Provider Test Date Status WANGBECKIENASRA 08/11/2024 09:25:29 Final Observation Date Value Abnormality Reference (Units ) Status Protein 08/11/2024 09:25:29 8.7 Above high normal 6. 0-8.3 (g/dL) Final Performing Location [facility] [place] [address]
--- OUTSIDE RECORDS SUMMARY | 2024-09-03 12:14 | External Medical Summary | Summary of Care ---
Author Name Unknown Organization [facility] Address [address] [address] Phone [phone] Care Team Providers Care Police Aide Name Role Phone Lani Vargas PA-C Primary Care Provider [phone] Reason for Visit * Reason Onset Date Comments Health Maintenance 08/07/2024 Encounter Details Date Type Department Care Team (Late st Contact Info) Description 08/07/2024 Telephone Family Practice [facility] [address] [place] [address] Lani Vargas PA-C 200 [facility] [place] [address] Health Maintenance Allergies Active Allergy Reactions Criticality Noted Date Comments Metolazone 07/16/2023 Severe Electrolyte imbalance needing Hospital admission Morphine Sulfate Nausea/vomiting 04/26/2009 documented as of this encounter (statuses as of 08/07/2024) Medications analgesic balm (BLAINE JENNINGS) 15% OINTIndications:Kn [...] times a day as needed. Active Methyl Nxwczxmhrb-Yton-Su nthol 2-4-1 % External Patch 2 times [...] stage 4 chronic kidney disease, unspecified whether detention insulin use (HCC) Inject 5 Units under [...] EST 07/29/19 25 Active OneTouch Delica Plus Hudvxf96X USE TWICE DAILY DIRECTED 200 Each 3 [...] 2 times a day. 200 Tablet 1 08/02/19 25 Active traMADol HCl 50 MG Oral Tablet (Ultram)Indication s:Chronic thoracic back pain, unspecified back pain laterality TAKE 1 TABLET BY MOUTH EVERY 6 HOURS NEEDED FOR MODERATE PAIN 30 Tablet 08/02/19 25 Active documented as of this encounter (statuses as of 08/07/2024) Active Problems Problem Noted Date Diagnosed Date [...] as of this encounter (statuses as of 08/07/2024) Resolved Problems Problem Noted Date Diagnosed Date [...] as of this encounter (statuses as of 08/07/2024) Immunizations Name Administration Dates Next Due COVID-19 mRNA, LNP-s, No Pre serve, 2-Dose Series ([employer]) 11/29/2020,11/08/2020 Covid-19, Mrna, Lnp-s, Pf, B ivalent, 30 Mcg, IM, 12 yrs and above (Pfizer) 08/10/2022 H1N1 2009 Influenza, IM 11/04/2009 Hepatitis B, 20+ yrs 07/13/2013,06/08/2013 Pneumococcal Conjugate Vacci ne, 20-valent ([id number]) 02/15/2023 Pneumococcal Polysaccharide PPV23 (Pneumovax) 04/26/2009 Seasonal [...] encounter Miscellaneous Notes * Telephone Encounter - DylanArnulfoNACHO grande - 08/07/2024 10:10 AM EST Care Gaps Comprehensive Care Outreach Last Office/Telemedicine Visit: 07/20/2024 (in office), Visit date not found (telemedicine) Next Office Visit: 08/18/2024 Hemoglobin AIC Results: Lab Results Component Value Date/Time HEMOGLOBIN A1C - [facility] 10.4 (H) 02/15/2023 10:22 AM HEMOGLOBIN A1C - [facility] 6.7 (H) 08/03/2022 02:20 PM HEMOGLOBIN A1C - [facility] 9.1 (H) 01/13/2022 12:46 PM HEMOGLOBIN A1C - [facility] 9.5 (H) 11/15/2018 12:55 PM HEMOGLOBIN A1C - [facility] 11.5 (H) 07/28/2018 02:13 PM HEMOGLOBIN A1C - [facility] 11.3 (H) 02/25/2017 02:31 PM HEMOGLOBIN A1C POCT - [facility] 5.9 (H) 05/19/2023 09:49 AM HEMOGLOBIN A1C POCT - [facility] 5.3 05/01/2022 11:25 AM BP Readings from Last 1 Encounters: 08/01/24 118/80 Reviewed Health Maintenance below: Health Maintenance Topic Date Due Hepatitis B Vaccine (3 of 3 - Risk 3-dose series) 12/06/2013 HbA1c 11/18/2023 Albumin/Creatinine Ratio 02/17/2024 COVID-19 Vaccine ( season) 2024 Diabetic Foot Exam 05/19/2024 GFR 05/23/2024 CKD PHOS USE SMARTSET 63320 07/16/[address] [facility] Care Gap Outreach Action Taken: Outside records requested documented in this encounter Plan of Treatment Upcoming Encounters Date Type Department Care Team (Late st Contact Info) Description 08/08/2024 12:30 PM EST Home Visit Care Coordination and Integration [address] [place] [address] Radha Vargas, [facility] [address] [place] [facility] [place] [address] 08/11/2024 9:00 AM EST Office Visit Nephrology, [place] [address] [place] [address] Cali Brown MD [address] [place] [address] 08/18/2024 11:40 AM EST Office Visit Family Practice [facility] [address] [place] [address] [address] Jonathan Rees III, MD [address] [place] [address] 09/05/2024 2:20 PM EST Office Visit Hepatology, [facility] [address] [place] [address] Deidra Mace MD [address] [place] [address] 09/14/2024 2:20 PM EST Office Visit Nephrology, [facility] [address] [facility] [place] [address] Cali Brown MD [address] [facility] [place] [address] Scheduled Procedures Name Priority Associated Diagnoses Date/Ti me COLONOSCOPY FLEXIBLE PROXIMAL DIAGNOSTIC Recall Screen for colon cancer Health Maintenance Due Date Last Done Comments Fecal Occult Blood Test 2007 Sigmoidoscopy 2007 Hepatitis B Vaccine (3 of 3 - Risk 3-dose series) 12/06/2013 07/13/2013, 06/08/2013 Cologuard 05/03/2022 05/03/2019 HbA1c 11/18/2023 05/19/2023, 01/24, 08/03/2022, Additional history exists Albumin/Creatinine Ratio 02/17/2024 023, 01/27/2022, 11/15/2018, Additional history exists COVID-19 Vaccine ( season) 2024 08/10/2022, 11/29/2020, 11/08/2020 Diabetic Foot Exam 05/19/2024 05/19/2023, 1 , 02/25/2017, Additional history exists GFR 05/23/2024 11/22/2023, 06/26, 06/10/2023, Additional history exists CKD PHOS USE SMARTSET 85532 07/16/202406/26, 03/11/2023, 08/03/2022 CKD HGB USE SMARTSET 55100 11/21/202411/21, 07/16/2023, 07/16/2023, Additional history exists Diabetic [...] as of this encounter Care Teams Police Aide Relationship Specialty Start Date End Date Alicia October DIONICIO Mott [facility] [place] [place] [address] [address] PCP - General Physician Vascular Specialists 08/03/24 documented as of this encounter
--- OUTSIDE RECORDS SUMMARY | 2024-09-03 12:14 | External Medical Summary ---
Author Name Unknown Address Unknown Organization K09:[facility] [place] [address] Laboratory Report Ordering Provider Test Date Status WANGWILBERT 08/11/2024 09:25:29 Final Observation Date Value Abnormality Reference (Units ) Status Bilirubin, Direct 08/11/2024 09:25:29 0.3 0. 0-0.3 (mg/dL) Final Performing Location [facility] [place] [address]
--- OUTSIDE RECORDS SUMMARY | 2024-09-03 12:14 | External Medical Summary ---
Author Name Unknown Address Unknown Organization K09:[facility] [place] [address] Laboratory Report Ordering Provider Test Date Status WILBERT PIÑA 08/11/2024 09:25:29 Final Observation Date Value Abnormality Reference (Units ) Status Bilirubin, Total 08/11/2024 09:25:29 0.8 <=1 .2 (mg/dL) Final Performing Location [facility] [place] [address]
--- OUTSIDE RECORDS SUMMARY | 2024-09-03 12:14 | External Medical Summary ---
Author Name Unknown Address Unknown Organization K01[place] [place] [address] [place] [address] Laboratory Report Ordering Provider Test Date Status MORRO RAMÍREZ 08/11/2024 09:25:29 Final Observation Date Value Abnormality Reference (Units ) Status MYCODE SPECIMEN-SST 08/11/2024 09:25:29 Freezing of extracted DNA, whole blood and/or serum. Final Performing Location [facility] [address] [place] [address]
--- OUTSIDE RECORDS SUMMARY | 2024-09-03 12:14 | External Medical Summary | Summary of Care ---
Author Name Unknown Organization [facility] Address [address] [facility] [address] Phone [phone] Care Team Providers Care Visual Merchandiser Name Role Phone Lani Vargas PA-C Primary Care Provider [phone] Encounter Details Date Type Department Care Team (Late st Contact Info) Description 08/08/2024 Orders Only Family Practice [facility] [address] [facility] [place] [address] Lani Vargas PA-C [address] [facility] [place] [address] Allergies Active Allergy Reactions Criticality Noted Date [...] times a day as needed. Active Methyl Kkqhloiiuw-Vjiz-Px nthol 2-4-1 % External Patch 2 times [...] EST 07/29/19 25 Active OneTouch Delica Plus [id number] USE TWICE DAILY DIRECTED 200 Each 3 [...] mRNA, LNP-s, No Pre serve, 2-Dose Series ([employer]) 11/29/2020,11/08/2020 Covid-19, Mrna, Lnp-s, Pf, B ivalent, 30 Mcg, IM, 12 yrs and above (Pfizer) 08/10/2022 H1N1 2009 Influenza, IM 11/04/2009 Hepatitis B, 20+ yrs 07/13/2013,06/08/2013 Pneumococcal Conjugate Vacci ne, 20-valent (Bqllauo06) 02/15/2023 Pneumococcal Polysaccharide PPV23 (Pneumovax) 04/26/2009 Seasonal [...] No 08/01/2024 Does the household have a [facility] source of income? (Household - for [...] Visit Care Coordination and Integration [address] [place] [address] Radha Vargas [facility] Scientific Software Developer [address] [facility] [place] [address] 08/11/2024 9:00 AM EST Office Visit NephrologyRoc [address] [place] [address] Cali Brown MD [address] [place] [address] 08/18/2024 11:40 AM EST Office Visit Family Practice [facility] [address] [place] [address] Jonathan Rees III, MD 200 [facility] [place] [address] 09/05/2024 2:20 PM EST Office Visit Hepatology, [facility] [place] [address] Deidra Mace MD [address] [place] [address] 09/14/2024 2:20 PM EST Office Visit Nephrology, [facility] 200 [facility] [place] [address] Cali Brown MD 200 [facility] [place] [address] Scheduled Procedures Name Priority Associated Diagnoses Date/Ti me COLONOSCOPY FLEXIBLE PROXIMAL DIAGNOSTIC Recall Screen for colon cancer Health Maintenance Due Date Last Done Comments Fecal Occult Blood Test 2007 Sigmoidoscopy 2007 Hepatitis B Vaccine (3 of 3 - Risk 3-dose series) 12/06/2013 07/13/2013, 06/08/2013 Cologuard 05/03/2022 05/03/2019 HbA1c 11/18/2023 07/14/2024, 04/26, 02/15/2023, Additional history exists Albumin/Creatinine Ratio 02/17/2024 023, 01/27/2022, 11/15/2018, Additional history exists COVID-19 Vaccine ( season) 2024 08/10/2022, 11/29/2020, 11/08/2020 Diabetic Foot Exam 05/19/2024 05/19/2023, 1 , 02/25/2017, Additional history exists GFR 05/23/2024 07/14/2024, 10/25, 07/16/2023, Additional history exists CKD PHOS USE SMARTSET 63934 07/16/202406/26, 07/16/2023, 03/11/2023, Additional history exists CKD HGB USE SMARTSET 05299 11/21/202407/14, 11/22/2023, 07/16/2023, Additional history exists Diabetic Eye Exam [...] Procedure Name Priority Date/Time Associated Diagnosis Comments CHEMISTRY-OUTSIDE Routine 07/14/2024 documented in this encounter Results * (ABNORMAL) CHEMISTRY-OUTSIDE (07/14/2024) Not all results display below - see scan for full detail OUTSIDE LAB (SEE SCANNED REPORT) CREATININE 2.86(A) 0.6 - 1.2 OUTSIDE L AB (SEE SCANNED REPORT) EGFR 18.05 OUTSIDE LA B (SEE SCANNED REPORT) POTASSIUM 3.9 3.5 - 5.1 OUTSIDE LA B (SEE SCANNED REPORT) GLUCOSE 113(A) 70 - 99 OUTSIDE LA B (SEE SCANNED REPORT) HOURS FASTING OUTSID E LAB (SEE SCANNED REPORT) TRIGLYCERIDES-OUT SIDE LAB OUTSIDE LAB (SEE SCANNED REPORT) CHOLESTEROL-OUTSI DE LAB OUTSIDE LAB (SEE SCANNED REPORT) HDL-OUTSIDE LAB OUTS MARCO LAB (SEE SCANNED REPORT) CHOL/HDL RATIO-OUTSIDE LAB OUTSIDE LA B (SEE SCANNED REPORT) LDL (CALCULATED)-OUTS [facility]CO LAB OUTSIDE LAB (SEE SCANNED REPORT) LDL (DIRECT MEASURE)-OUTSIDE LAB OUTSIDE LAB (SEE SCANNED REPORT) HEMOGLOBIN, T4C-LLQEGAM LAB 6.8(A) 4.5 - 5.6 OUTSIDE LAB (SEE SCANNED REPORT) PHOSPHORUS-OUTSID E LAB 4.9 2.5 - 4.9 OUTSIDE LAB (SEE SCANNED REPORT) PTH-OUTSIDE LAB OUTS MARCO LAB (SEE SCANNED REPORT) MICROALBUMIN RATIO-OUTSIDE LAB OUTSIDE LA B (SEE SCANNED REPORT) PROTEIN, UA-OUTSIDE LAB OUTSIDE LAB (SEE SCANNED REPORT) HGB 9.0(A) 12.0 - 16.0 OUTSIDE LAB (SEE SCANNED REPORT) 07/14/2024 us Tigre Dow MD LABORATORY Final Result OUTSIDE LAB (SEE SCANNED REPORT) documented in this encounter Care Teams Visual Merchandiser Relationship Specialty Start Date End Date AliciaOctober DIONICIO Mott [address] [facility], [place] [address] PCP - General Physician Scientific Software Developer 08/03/24 documented as of this encounter
--- OUTSIDE RECORDS SUMMARY | 2024-09-03 12:14 | External Medical Summary ---
Author Name Unknown Address Unknown Organization K09:[facility] [place] [address] Laboratory Report Ordering Provider Test Date Status WILBERT PIÑA 08/11/2024 09:25:29 Final Observation Date Value Abnormality Reference (Units ) Status Color of Urine by Auto 08/11/2024 09:25:29 Yellow Light Yellow, Yellow, Dark Yellow Final Clarity, Urine 08/11/2024 09:25:29 Clear Clear Final Glucose [Mass/volume] in Urine by Automated test strip 08/11/2024 09:25:29 500 Abnormal Negative (mg/dL) Final Bilirubin.total [Presence] in Urine by Automated test strip 08/11/2024 09:25:29 Negative Negative Final Ketones [Mass/volume] in Urine by Automated test strip 08/11/2024 09:25:29 Negative Negative (mg/dL) Final Specific gravity, Urine 08/11/2024 09:25:29 1.015 1.003-1.030 Final Hemoglobin [Presence] in Urine by Automated test strip 08/11/2024 09:25:29 Trace Abnormal Negative Final pH, Urine 08/11/2024 09:25:29 6.0 5.0-7.5 (Units) Final Protein [Mass/volume] in Urine by Automated test strip 08/11/2024 09:25:29 Negative Negative (mg/dL) Final Urobilinogen [Mass/volume] in Urine by Automated test strip 08/11/2024 09:25:29 0.2 0.2, 1.0 (mg/dL) Final Nitrite [Presence] in Urine by Automated test strip 08/11/2024 09:25:29 Negative Negative Final Leukocyte esterase [Presence] in Urine by Automated test strip 08/11/2024 09:25:29 Small Abnormal Negative Final RBC, Urine 08/11/2024 09:25:29 3-5 Abnormal 0-2 (/HPF) Final WBC, Urine 08/11/2024 09:25:29 10-19 Abnormal 0-2 (/HPF) Final Bacteria [#/area] in Urine sediment by Microscopy high power field 08/11/2024 09:25:29 26-50 Abnormal 0-25 (/HPF) Final Performing Location [facility] [address] [place] [address]
--- OUTSIDE RECORDS SUMMARY | 2024-09-03 12:14 | External Medical Summary | Summary of Care ---
Author Name Unknown Organization [facility] Address [address] [facility] [place] [address] Phone [phone] Care Team Providers Care Data Integration Analyst Name Role Phone Cabrera SCALES MD, Brianna Potter Primary Care Provider [phone] Reason for Visit * Reason Comments Medication Refill Encounter Details Date Type Department Care Team (Late st Contact Info) Description 07/27/2024 Refill Family Practice [facility] [place] 200 [facility] [place] [address] Brianna Patel III, MD 200 [facility] [place] [address] Chronic kidney disease, stage 3b (HCC) Allergies Active Allergy Reactions Criticality Noted [...] times a day as needed. 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 200 Tablet 1 025 Active Eliquis 5 MG Oral Tablet Take by one tablet by mouth every 12 hours . 180 Tablet 3 01/28/20 24 6:35 AM EDT 023 2024 Discontinued(R efill) OneTouch Delica Plus Oigefq78C USE TWICE DAILY 200 Each 3 01/14/20 [...] times a day. 024 2024 Discontinued(R efill) Potassium Chloride ER 20 MEQ Oral Tablet [...] mRNA, LNP-s, No Pre serve, 2-Dose Series ([employer]) 11/29/2020,11/08/2020 Covid-19, Mrna, Lnp-s, Pf, B ivalent, 30 Mcg, IM, 12 yrs and above (Pfizer) 08/10/2022 H1N1 2009 Influenza, IM 11/04/2009 Hepatitis B, 20+ yrs 07/13/2013,06/08/2013 Pneumococcal Conjugate Vacci ne, 20-valent (Pdelwgd84) 02/15/2023 Pneumococcal Polysaccharide PPV23 (Pneumovax) 04/26/2009 Seasonal [...] - Brianna Patel III, MD - 08/02/2024 8:38 AM ESTSigned Prescriptions: Disp Refills Eliquis 5 MG Oral Tablet 200 Ta*1 Sig: Take by 1 tablet by mouthevery 12 hoursAuthorizing Provider: BRIANNA PATEL III User: BUDDY ROMANO Delica Plus Hutnth68I 200 Ea*3 Sig: USE TWICE DAILY DIRECTEDAuthorizing Provider: BRIANNA PATEL III User: BUDDY ROMANO Verio In Vitro Strip (Glucose Blo*200 St*3 Sig: USE DIRECTED TWO TIMES A DAYAuthorizing Provider: BRIANNA PATEL III User: BUDDY ROMANO Spironolactone 50 MG Oral Tablet (Aldacton*200 Ta*1 Sig: Take 1 Tablet by mouth in the morning and 1 Tablet before bedAuthorizing Provider: BRIANNA PATEL III User: BUDDY ROMANO Furosemide 80 MG Oral Tablet (Lasix) 200 Ta*1 Sig: Take 1 Tablet by mouth 2 times a dayAutho rizing Provider: BRIANNA PATEL III User: BUDDY ROMANO Potassium Chloride ER 20 MEQ Oral Tablet E*200 Ta*1 Sig: Take 1 Tablet by mouth 2 times a day.Authorizing Provider: BRIANNA PATEL III ERefujakob Prescriptions: Disp Refills Torsemide 20 MG Oral Tablet (Demadex) 90 Tab*3 Sig: Take 1 Tablet by mouth in the morning.Refused By: BUDDY ROMANOason for Refusal: Other (comment below)Reason for Refusal Comment: dc'd 07/17/24 * Telephone Encounter - Buddy Alvaerz, [facility] - 07/29/2024 6:48 AM ESTPending Prescriptions: Disp Refills Potassium Chloride ER 20 MEQ Oral Tablet E*200 Ta*1 Sig: Take 1 Tablet by mouth 2 times a day. Signed Prescriptions: Disp Refills Eliquis 5 MG Oral Tablet 200 Ta*1 Sig: Take by one tablet by mouth every 12 hours . Authorizing Provider: BRIANNA PATEL III Ordering User: BUDDY ROMANO ouch Delica Plus Omftke99L 200 Ea*3 Sig: USE TWICE DAILY Authorizing Provider: BRIANNA PATEL III Ordering User: BUDDY ROMANOTouch Verio In Vitro Strip (Glucose Blo*200 St*3 Sig: USE DIRECTED TWO TIMES A DAY Authorizing Provider: BRIANNA PATEL III Ordering User: BUDDY ROMANO Spironolactone 50 MG Oral Tablet (Aldacton*200 Ta*1 Sig: Take 1 Tablet by mouth in the morning and 1 Tablet before bedtime. Authorizing Provider: BRIANNA PATEL III Ordering User: BUDDY ROMANO Furosemide 80 MG Oral Tablet (Lasix) 200 Ta*1 Sig: Take 1 Tablet by mouth 2 times a day. Authorizing Provider: BRIANNA PATEL III Ordering User: BUDDY ROMANO Refused Prescriptions: Disp Refills Torsemide 20 MG Oral Tablet (Demadex) 90 Tab*3 Sig: Take 1 Tablet by mouth in the morning. Refused By: BUDDY ROMANO Reason for Refusal: Other (comment below) Reason for Refusal Comment: [email or web address] 07/17/24 * Telephone Encounter - Buddy Alvarez [facility] - 07/29/2024 6:48 AM EST Pharmacists cannot authorize refills for meds listed as "historical" in chart. Please approve if appropriate. Thank You, Buddy Romano [facility] Clinical Pharmacist Centralized Clinical Pharmacy Services (CCPS) 07/29/2024, 6:48 AM * Telephone Encounter - Alise Garcia CPhT - 07/27/2024 12:02 PM EST Did you pend patient's preferred pharmacy and medication before forwarding?yes Pharmacy: [facility] Pending Prescriptions: Disp Refills Eliquis 5 MG Oral Tablet 180 Ta*3 Sig: Take by one tablet by mouth every 12 hours . OneTouch Delica Plus Yqweld21Y 200 Ea*3 Sig: USE TWICE DAILY OneTouch Verio In Vitro Strip (Glucose Bl*200 St*3 Sig: USE DIRECTED TWO TIMES A DAY Torsemide 20 MG Oral Tablet (Demadex) 90 Tab*3 Sig: Take 1 Tablet by mouth in the morning. Spironolactone 50 MG Oral Tablet (Aldacto*180 Ta*3 Sig: Take 2 Tablets by mouth in the morning. Furosemide 80 MG Oral Tablet (Lasix) 180 Ta*1 Sig: Take 1 Tablet by mouth 2 times a day. Potassium Chloride ER 20 MEQ Oral Tablet *180 Ta*1 Sig: Take 1 Tablet by mouth 2 times a day. Last Visit: 07/20/2024 (in office), Visit date not found (telemedicine) Next Visit: 08/18/2024 If no future appointments scheduled, and last appointment is greater than a year ago, please schedule patient for a follow-up appointment Last date the medication was ordered: 04/19/23 Is this request for a controlled substance?No [...] Description 08/04/2024 10:00 AM EST Imaging Radiology [address], [address] [place] [address] 08/08/2024 12:30 PM EST Home Visit Care Coordination and Integration [address] [place] [facility] [place] [address] Radha Vargas, [facility] Pediatric Psychiatrist [address] [facility] [place] [address] 08/11/2024 9:00 AM EST Office Visit Nephrology, [facility] [address] [place] [address] Cali Brown MD [facility] [place] [address] 08/18/2024 11:40 AM EST Office Visit Family Practice [facility] [address] [place] [address] Brianna Patel III, MD [facility] [place] [address] 09/05/2024 2:20 PM EST Office Visit Hepatology, [facility] 132 [facility] [place] [address] Deidra Mace MD [address] [place] [address] [place] [address] 09/14/2024 2:20 PM EST Office Visit Nephrology, [facility] [address] [place] [address] Cali Brown MD 200 [facility] [place] [address] Scheduled Procedures Name Priority Associated Diagnoses Date/Ti [...] Additional history exists CKD PHOS USE SMARTSET 27881 07/16/202406/26, 03/11/2023, 08/03/2022 CKD HGB USE SMARTSET 16450 11/21/202411/21, 07/16/2023, 07/16/2023, Additional history exists Diabetic [...] Diagnoses Diagnosis Chronic kidney disease, stage 3b (HCC) documented in this encounter Care Teams Data Integration Analyst Relationship Specialty Start Date End Date Brianna Patel III, MD 200 [facility] [place] [address] PCP - General 03/09/1996 documented as of this encounter
--- OUTSIDE RECORDS SUMMARY | 2024-09-03 12:14 | External Medical Summary ---
Author Name Unknown Address Unknown Organization K09:[facility] [place] [address] Laboratory Report Ordering Provider Test Date Status BECKIE PIÑANASRA 08/11/2024 09:25:29 Final Observation Date Value Abnormality Reference (Units ) Status ALT (Alanine aminotransferase) 08/11/2024 09:25:29 37 Above high normal 10-35 (U/L) Final Performing Location [facility] [place] [address]
--- OUTSIDE RECORDS SUMMARY | 2024-09-03 12:14 | External Medical Summary ---
Author Name Unknown Address Unknown Organization K01:[facility] - [address] [place] [address] Laboratory Report Ordering Provider Test Date Status WILBERT PIÑA 08/11/2024 09:25:29 Final Observation Date Value Abnormality Reference (Units ) Status Parathyrin.intact [Mass/volume] in Serum or Plasma 08/11/2024 09:25:29 143 Above high normal 15-65 (pg/mL) Final Performing Location [facility] - [address] [place] [address]
--- OUTSIDE RECORDS SUMMARY | 2024-09-03 12:14 | External Medical Summary ---
Author Name Unknown Address Unknown Organization K01:[facility] [place] [address] [place] [address] Laboratory Report Ordering Provider Test Date Status MORRO RAMÍREZ 08/11/2024 09:25:29 Final Observation Date Value Abnormality Reference (Units ) Status MYCODE SPECIMEN-SST 08/11/2024 09:25:29 Freezing of extracted DNA, whole blood and/or serum. Final Performing Location [facility] - [address] [place] [address]
--- OUTSIDE RECORDS SUMMARY | 2024-09-03 12:14 | External Medical Summary ---
Author Name Unknown Address Unknown Organization K01:[facility] - [address] [place] [address] Laboratory Report Ordering Provider Test Date Status WILBERT PIÑA 08/11/2024 09:25:29 Final Observation Date Value Abnormality Reference (Units ) Status Osmolality, Urine 08/11/2024 09:25:29 365 50 -1200 (mOsm/kg) Final Performing Location [facility] - [address] [place] [address]
--- OUTSIDE RECORDS SUMMARY | 2024-09-03 12:14 | External Medical Summary ---
Author Name Unknown Address Unknown Organization K01:LAB[facility]ATORY [facility] [place] - [address] [place] [address] Laboratory Report Ordering Provider Test Date Status WILBERT PIÑA 08/11/2024 09:25:29 Final Normal: <150 mg/ g creatinine
High: 150-500 mg/g creatinine
Very High: >500 mg/g creatinine
Nephrotic: >3000 mg/g creatinine Observation Date Value Abnormality Reference (Units ) Status Protein/Creatinine [Ratio] in Urine 08/11/2024 09:25:29 167 Above high normal <150 (mg/g ) Final Protein, Urine 08/11/2024 09:25:29 10 (mg/dL) Final Creatinine, Urine 08/11/2024 09:25:29 60 (mg/dL) Final Performing Location LAB[facility] - [address] [place] [address]
--- OUTSIDE RECORDS SUMMARY | 2024-09-03 12:15 | External Medical Summary | Summary of Care ---
Author Name Unknown Organization [facility] Address [address] [facility] [place] [address] Phone [phone] Care Team Providers Care Curing Press Maintainer Name Role Phone Cabrera SCALES MD, Jonathan Potter Primary Care Provider [phone] Reason for Visit * Reason Onset Date Comments Medication Refill 07/27/2024 Encounter Details Date Type Department Care Team (Late st Contact Info) Description 07/27/2024 Refill Family Practice [facility] 200 [facility] [place] [address] Jonathan Rees III, MD 200 [place] [address] Chronic thoracic back pain, unspecified back pain [...] times a day as needed. Active Methyl Qqrmoddyjk-Splt-Ex nthol 2-4-1 % External Patch 2 times [...] stage 4 chronic kidney disease, unspecified whether extermination supervisor insulin use (HCC) Inject 5 Units [...] every 12 hours . 180 Tablet 3 4 6:35 AM EDT 02/10/20 23 025 Discontin ued(Refil l) OneTouch Delica Plus Wujcuj07U USE TWICE DAILY 200 Each 3 4 6:55 AM EDT 04/19/20 23 025 Discontin ued(Refil l) OneTouch Verio In Vitro Strip (Glucose Blood) USE DIRECTED TWO TIMES A DAY 200 Strip 3 4 2:03 PM EDT 04/19/20 23 025 Discontin ued(Refil l) Spironolactone 50 MG Oral Tablet (Aldactone)Indicat ions:Chronic kidney disease, stage 3b (HCC) Take 2 Tablets by mouth in the morning. 180 Tablet 3 4 6:32 PM EDT 05/23/20 23 025 Discontin ued(Refil l) Furosemide 80 MG Oral Tablet (Lasix) Take 1 Tablet by mouth 2 times a day. 07/14/20 24 025 Discontin ued(Refil l) documented as of this encounter (statuses as [...] mRNA, LNP-s, No Pre serve, 2-Dose Series ([employer]) 11/29/2020,11/08/2020 Covid-19, Mrna, Lnp-s, Pf, B ivalent, 30 Mcg, IM, 12 yrs and above (Pfizer) 08/10/2022 H1N1 2009 Influenza, IM 11/04/2009 Hepatitis B, 20+ yrs 07/13/2013,06/08/2013 Pneumococcal Conjugate Vacci ne, 20-valent (Wwlknwc28) 02/15/2023 Pneumococcal Polysaccharide PPV23 (Pneumovax) 04/26/2009 Seasonal [...] Notes * Telephone Encounter - Ming Alvarez, [facility] - 07/28/2024 6:56 PM ESTPending Prescriptions: Disp Refills traMADol HCl 50 MG Oral Tablet (Ultram) 30 Tab*0 Sig: Take 1 Tablet by mouth every 6 hours as needed for Pain, Moderate. * Telephone Encounter - Ming Alvarez [facility] - 07/28/2024 6:56 PM EST I have reviewed the patients controlled substance dispensing history in the Prescription Drug Monitoring Program in compliance with the [facility] regulations before prescribing a controlled substance. [...] for refill: 01/21/24 Pharmacy: [facility] [address] [address] [place] Is this request for a controlled substance? [...] appropriate. Thank You, Ming Acuna [facility] Clinical Pharmacist Centralized Clinical Pharmacy Services (CCPS) 07/28/2024, 6:56 PM * Telephone Encounter - Delroy Carvajal PHARM Tech - 07/28/2024 12:06 PM EST Pt calling to check on status of traMADol HCl 50 MG Oral Tablet (Ultram). Caller can be reached at [phone]. Thank you, Delroy Carvajal Online Marketing Director I Centralized Clinical Pharmacy Services (formerly Telepharmacy) 07/28/2024, 12:06 PM * Telephone Encounter - Jayashree Medrano CPhT - 07/27/2024 12:21 PM EST Did you pend patient's preferred pharmacy and medication before forwarding?yes Pharmacy: [facility] [phone] Pending Prescriptions: Disp Refills traMADol HCl 50 [...] was the last refill date 01/14/2024 w/ [email or web address] and dosage 50 and Urine Drug Screen [...] Description 08/04/2024 10:00 AM EST Imaging Radiology [address], [address] [place] [address] 08/08/2024 12:30 PM EST Home Visit Care Coordination and Integration [address] [place] [address] Radha Vargas [facility] Psychotherapist [address] [place] [address] 08/11/2024 9:00 AM EST Office Visit Nephrology, [place] [address] [place] [address] Cali Brown MD [address] [place] [address] 08/18/2024 11:40 AM EST Office Visit Family Practice [facility] 200 [facility] [place] [address] Jonathan Rees III, MD 200 [facility] [place], [place] [address] 09/05/2024 2:20 PM EST Office Visit Hepatology, [facility] 132 [facility] [place] [address] Deidra Mace MD [address] [place] [address] 09/14/2024 2:20 PM EST Office Visit Nephrology, [facility] 200 [facility] [place], [place] [address] Cali Brown MD 200 [facility] [place] [address] Scheduled Procedures Name Priority Associated Diagnoses Date/Ti [...] Additional history exists CKD PHOS USE SMARTSET 36426 07/16/202406/26, 03/11/2023, 08/03/2022 CKD HGB USE SMARTSET 57238 11/21/202411/21, 07/16/2023, 07/16/2023, Additional history exists Diabetic [...] laterality documented in this encounter Care Teams Curing Press Maintainer Relationship Specialty Start Date End Date Jonathan Rees III, MD 200 [facility] [place] [address] PCP - General 03/09/1996 documented as of this encounter
--- OUTSIDE RECORDS SUMMARY | 2024-09-03 12:15 | External Medical Summary | Summary of Care ---
Author Name Unknown Organization [facility] Address [address] [place] [address] Phone [phone] Care Team Providers Care Provider Scribe Name Role Phone Cabrera SCALES MD, Jonathan Potter Primary Care Provider [phone] Reason for Visit * Reason Onset Date Comments Hospital Follow-Up 07/17/2024 Encounter Details Date Type Department Care Team (Late st Contact Info) Description 07/17/2024 Telephone [facility] Medicine [address] [facility] [place] [address] Cali Brown MD [address] [place] [address] Hospital Follow-Up Allergies Active Allergy Reactions Criticality Noted Date Comments Metolazone 07/16/2023 Severe Electrolyte imbalance needing Hospital admission Morphine Sulfate Nausea/vomiting 04/26/2009 documented as of this encounter (statuses as of 07/28/2024) Medications analgesic balm (BLAINE JENNINGS) 15% OINTIndications:Kn [...] at 100mL/hr. 200 mL 04/27/20 22 Active Eliquis 5 MG Oral Tablet Take by one tablet by mouth every 12 hours . 180 Tablet 3 4 6:35 AM EDT 02/10/20 23 Active ProAir HFA 108 (90 Base) MCG/ACT Inhalation Aerosol SolutionIndication s:Moderate persistent asthma without complication Inhale 2 Puffs by mouth in the morning and 2 Puffs at noon and 2 Puffs in the evening and 2 Puffs before bedtime. 18 g 3 3 1:42 PM EDT 02/10/20 23 Active Additional Information Patient taking differently:2 Puff InhalationQID PRN, Reported on 07/20/2024 Docusate Sodium 100 MG Oral Capsule (Colace)Indication s:Constipation, unspecified constipation type Take 1 Capsule by mouth 2 times a day as needed. Active Methyl Vacchvmmjs-Thnt-Ao nthol 2-4-1 % External Patch 2 times a day. 02/26/20 23 Active OneTouch Delica Plus [id number] USE TWICE DAILY 200 Each 3 4 6:55 AM EDT 04/19/20 23 Active OneTouch Verio In Vitro Strip (Glucose Blood) USE DIRECTED TWO TIMES A DAY 200 Strip 3 4 2:03 PM EDT 04/19/20 23 Active Unifine Pentips 31G X 8 [...] SKIN daily in the morning, Reported on 07/20/2024 NovoLOG FlexPen 100 UNIT/ML Subcutaneous Solution Pen-injector (insulin aspart)Indications :Type 2 diabetes mellitus with stage 4 chronic kidney disease, unspecified whether longterm insulin use (HCC) Inject 5 Units under the skin in the morning and 5 Units at noon and 5 Units in the evening. Inject with meals. 15 mL 3 4 2:17 PM EDT 04/27/20 23 Active Additional Information Patient taking differently:5 Units SubcutaneousBID(Non-Specified), Reported on 07/20/2024 Spironolactone 50 MG Oral Tablet (Aldactone)Indicat ions:Chronic kidney disease, stage 3b (HCC) Take 2 Tablets by mouth in the morning. 180 Tablet 3 4 6:32 PM EDT 05/23/20 23 Active Additional Information Patient taking differently: 50 mgOralBID (.AM/PM), Reported on 07/20/2024 Multivitamin Adult Oral Tablet Take 1 Tablet by mouth in the morning. Active Empagliflozin 10 MG Oral Tablet (Jardiance) Take 1 Tablet by mouth in the morning. 90 Tablet 3 4 6:55 AM EDT 08/04/19 24 Active Additional Information Patient not taking.Reported on 07/20/2024 Pantoprazole Sodium 20 MG Oral Tablet Delayed Release (Protonix) Take 1 Tablet by mouth 2 times a day with morning and evening meals. 180 Tablet 1 4 7:24 AM EDT 01/14/20 24 Active traMADol HCl 50 MG Oral Tablet (Ultram)Indication s:Chronic thoracic back pain, unspecified back pain laterality TAKE 1 TABLET BY MOUTH EVERY 6 HOURS NEEDED FOR MODERATE PAIN 30 Tablet 01/14/20 24 Active rOPINIRole HCl 0.25 MG Oral Tablet (Requip)Indication s:RLS (restless legs syndrome) Take 1 Tablet by mouth at bedtime. 90 Tablet 3 4 3:56 PM EDT 03/23/20 24 Active Diclofenac Sodium 1 % External Gel (Voltaren) Apply topically to back of knees 2 times a day. 400 g 6 03/23/20 24 Active Rosuvastatin Calcium 5 MG Oral Tablet (Crestor)Indicatio ns:Hyperlipidemia, unspecified hyperlipidemia type Take 1 Tablet by mouth in the morning. 90 Tablet 3 4 3:56 PM EDT 03/23/20 24 Active Furosemide 80 MG Oral Tablet (Lasix) Take 1 Tablet by mouth 2 times a day. 07/14/20 24 Active Potassium Chloride ER 20 MEQ Oral Tablet Extended Release Take 1 Tablet by mouth 2 times a day. Active documented as of this encounter (statuses as of 07/28/2024) Active Problems Problem Noted Date Diagnosed Date [...] as of this encounter (statuses as of 07/28/2024) Resolved Problems Problem Noted Date Diagnosed Date [...] as of this encounter (statuses as of 07/28/2024) Immunizations Name Administration Dates Next Due COVID-19 mRNA, LNP-s, No Pre serve, 2-Dose Series (Indotrading) 11/29/2020,11/08/2020 Covid-19, Mrna, Lnp-s, Pf, B ivalent, 30 Mcg, IM, 12 yrs and above (Pfizer) 08/10/2022 H1N1 2009 Influenza, IM 11/04/2009 Hepatitis B, 20+ yrs 07/13/2013,06/08/2013 Pneumococcal Conjugate Vacci ne, 20-valent ([id number]) 02/15/2023 Pneumococcal Polysaccharide PPV23 (Pneumovax) 04/26/2009 Seasonal [...] a child, family member or friend? No 07/17/2024 Does your family need help f inding childcare? (Household - for ages 0-17 years) Not on file 07/17/2024 Clothing Answer Date Recorded Have you been unable to get clothing when it was really needed? No 07/17/2024 Is your family able to get c lothes or diapers when needed? (Household - for ages 0-17 years) Not on file 07/17/2024 Personal Safety Answer Date Recorded Do you feel unsafe or have concerns for your saf ety? No 07/17/2024 Do you have concerns for you r family's safety? (Household - for ages 0-17 years) Not on file 07/17/2024 Utilities Answer Date Recorded Do you have trouble paying y our heating, water, or electric bill? No 07/17/2024 Is your family able to pay t he heat, water, or electric bill? (Household - for ages 0-17 years) Not on file 07/17/2024 Does your family have access to good internet? (Household - for ages 0-17 years) Not on file 07/17/2024 Employment Status Answer Date Recorded Are you unemployed or without regular income? No 07/17/2024 Does the household have a re gular source of income? (Household - for ages 0-17 years) Not on file 07/17/2024 Social Connections Answer Date Recorded How often do you feel lonely or isolated from th ose around you? Never 07/17/2024 Financial Resource Strain Answer Date R ecorded Do you have any trouble payi ng for your medications, or do you think you might in the future? No 07/17/2024 Does your family have troubl e paying for medicine? (Household - for ages 0-17 years) Not on file 07/17/2024 Transportation Needs Answer Date Record ed Do you have trouble getting a ride to medical visits or work? (Adult - for ages 18 years and over) Not on file 07/17/2024 Does your family have a hard time getting a ride to doctors visits? (Household - for ages 0-17 years) Not on file 07/17/2024 Has lack of transportation k ept you from medical appointments, meetings, work, or from getting things needed for daily living? Check all that apply. No 07/17/2024 Do you (or your family) have trouble finding or paying for a ride (transportation)? (Household - for ages 0-17 years) Not on file 07/17/2024 Housing Stability Answer Date Recorded Do you currently live in a s helter or have no steady place to sleep at night? No 07/17/2024 Do you think you are at risk of becoming homeless? (Adult - for ages 18 years and over) Not on file 07/17/2024 Does your family worry about paying for your home or becoming homeless? (Household - for ages 0-17 years) Not on file 1 09/17/2023 Are you homeless or worried that you might be in the future? No 07/17/2024 Are you (or your family) mynor eless or worried that you might be in the future? (Household - for ages 0-17 years) Not on file Food Insecurity Answer Date Recorded Do you need food for this week? No 07/17/2024 Are you able to get enough f ood for your family? (Household - for ages 0-17 years) Not on file 07/17/2024 Does your family need food t his week? (Household - for ages 0-17 years) Not on file 07/17/2024 Do you always have enough fo od for your family? (Household - for ages 0-17 years) Not on file 07/17/2024 Comments No Sex and Gender Information Value Date Recorded Sex Assigned at Female 02/21/2022 9:08 PM EDT Legal Sex Female 6:02 AM EST Gender Identity Female 02/21/2022 9:08 PM EDT Sexual Orientation Straight 02/21/2022 9: 08 PM EDT documented as of this encounter Miscellaneous Notes * Telephone Encounter - Viola Payne RN - 07/28/2024 2:09 PM EST Pt scheduled for 08/11/[address] Brown. * Telephone Encounter - Annette Johnson - 07/17/2024 1:06 PM EST Saida discharged from [facility] on 07/14/24. Nephrology was consulted for BLAIRE/CKD and Dr. Yun has the following recommendations at discharge: (1) BLAIRE (acute kidney injury): Plan: her baseline creat is about 2. creatinine climbed some w/ lasix gtt and other attempts at diuresis ( on intermittent IV since 07/06)> creat 2.8 today. Diuresis has been average only with lasix 40 iv bid + aldactone 100 daily; was on lasix 80 mg tid since 07/06 Wts >> 112.2 at 07/02 admission; peak at 118.7 on 07/04; 107 on 07/05 > 102.6 07/08 > 100.7 07/09> 97.7 07/12 - Will stop IV Lasix. Change her to torsemide 100 mg daily. Continue Aldactone. From renal standpoint patient can be discharged on torsemide and Aldactone. If patient can not afford torsemide due to insurance problems, she can be discharged on oral Lasix 100 mg twice daily - discussed compliance with outpatient diuretics and patient agrees to take her diuretics at home. 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 (3) Fluid overload: Plan: On admission she had creat better than baseline because of Severe hemodilution. with the severe Fluid overload she had Creat was misleading. -diuretics/K as above -cont 1.2 L FR discussed plan with Dr. Dow who agrees with switching her torsemide. Will also remove Sutherland catheter. documented in this encounter Plan of Treatment Upcoming Encounters Date Type Department Care Team (Late st Contact Info) Description 08/01/2024 4:00 PM EST Home Visit Care Coordination and Integration [address], [place] [id number] Radha Vargas, [facility] [employer] [address] [place] [address] 08/04/2024 10:00 AM EST Imaging Radiology [facility] [address] [facility] [address] [place] [address] 08/11/2024 9:00 AM EST Office Visit Nephrology, [facility] [address] [place] [address] Cali Brown MD [address] [facility] [address] [place] [address] 08/18/2024 11:40 AM EST Office Visit Family Practice [facility] [address] [facility] [place] [address] Jonathan Rees III, MD [address] [facility] [place] [address] 09/05/2024 2:20 PM EST Office Visit Hepatology, [facility] [address] [facility] [place] [address] Deidra Mace MD [address] [place] [address] 09/14/2024 2:20 PM EST Office Visit Nephrology, [facility] [address] [place] [address] Cali Brown MD [address] [facility] [place] [address] Scheduled Procedures Name Priority Associated Diagnoses Date/Ti [...] Additional history exists CKD PHOS USE SMARTSET 97749 07/16/202406/26, 03/11/2023, 08/03/2022 CKD HGB USE SMARTSET 98793 11/21/202411/21, 07/16/2023, 07/16/2023, Additional history exists Diabetic [...] filedocumented as of this encounter Care Teams Provider Scribe Relationship Specialty Start Date End Date Jonathan Rees III, MD [address] [place] [address] PCP - General 03/09/1996 documented as of this encounter
--- OUTSIDE RECORDS SUMMARY | 2024-09-03 12:15 | External Medical Summary | Summary of Care ---
Author Name Unknown Organization [facility] Address [address] [place] [place] [facility] [place] [address] Phone [phone] Care Team Providers Care Stock Clipper Name Role Phone Cabrera SCALES MD, Jonathan Potter Primary Care Provider [phone] Reason for Visit * Reason Onset Date Comments Hospital Follow-Up 07/17/2024 Encounter Details Date Type Department Care Team (Late st Contact Info) Description 07/17/2024 Telephone [facility] Medicine [address] [facility] [place] [address] Cali Brown MD [address] [place] [address] Hospital Follow-Up Allergies Active Allergy Reactions Criticality Noted Date Comments Metolazone 07/16/2023 Severe Electrolyte imbalance needing Hospital admission Morphine Sulfate Nausea/vomiting 04/26/2009 documented as of this encounter (statuses as of 07/17/2024) Medications analgesic balm (BLAINE JENNINGS) 15% OINTIndications:Kn [...] post paracentesis. Run at 100mL/hr. 200 mL 10/03/20 22 Active Eliquis 5 MG Oral Tablet Take by one tablet by mouth every 12 hours . 180 Tablet 3 4 6:35 AM EDT 02/10/20 Active ProAir HFA 108 (90 Base) MCG/ACT Inhalation Aerosol SolutionIndication s:Moderate persistent asthma without complication Inhale 2 Puffs by mouth in the morning and 2 Puffs at noon and 2 Puffs in the evening and 2 Puffs before bedtime. 18 g 3 3 1:42 PM EDT 02/10/20 Active Additional Information Patient taking differently:2 Puff InhalationQID PRN, Reported on 07/17/2024 Docusate Sodium 100 MG Oral Capsule (Colace)Indication s:Constipation, unspecified constipation type Take 1 Capsule by mouth 2 times a day as needed. Active Methyl Uhcroeknyi-Ncsu-Tb nthol 2-4-1 % External Patch 2 times a day. 02/26/20 Active OneTouch Delica Plus [id number] USE TWICE DAILY 200 Each 3 4 6:55 AM EDT 04/19/20 23 Active OneTouch Verio In Vitro Strip (Glucose Blood) USE DIRECTED TWO TIMES A DAY 200 Strip 3 4 2:03 PM EDT 04/19/20 Active Unifine Pentips 31G X 8 [...] SKIN daily in the morning, Reported on 07/17/2024 NovoLOG FlexPen 100 UNIT/ML Subcutaneous Solution Pen-injector (insulin aspart)Indications :Type 2 diabetes mellitus with stage 4 chronic kidney disease, unspecified whether penitentiary insulin use (HCC) Inject 5 Units under the skin in the morning and 5 Units at noon and 5 Units in the evening. Inject with meals. 15 mL 3 4 2:17 PM EDT 04/27/20 Active Additional Information Patient taking differently:5 Units SubcutaneousBID(Non-Specified), Reported on 07/17/2024 Spironolactone 50 MG Oral Tablet (Aldactone)Indicat ions:Chronic kidney disease, stage 3b (HCC) Take 2 Tablets by mouth in the morning. 180 Tablet 3 4 6:32 PM EDT 05/23/20 23 Active Additional Information Patient taking differently: 50 mgOralBID (.AM/PM), Reported on 07/17/2024 Multivitamin Adult Oral Tablet Take 1 Tablet by mouth in the morning. Active Empagliflozin 10 MG Oral Tablet (Jardiance) Take 1 Tablet by mouth in the morning. 90 Tablet 3 4 6:55 AM EDT 08/04/19 Active Additional Information Patient not taking.Reported on 07/17/2024 Pantoprazole Sodium 20 MG Oral Tablet Delayed [...] as of this encounter (statuses as of 07/17/2024) Active Problems Problem Noted Date Diagnosed Date [...] as of this encounter (statuses as of 07/17/2024) Resolved Problems Problem Noted Date Diagnosed Date [...] as of this encounter (statuses as of 07/17/2024) Immunizations Name Administration Dates Next Due COVID-19 mRNA, LNP-s, No Pre serve, 2-Dose Series (Accera) 11/29/2020,11/08/2020 Covid-19, Mrna, Lnp-s, Pf, B ivalent, 30 Mcg, IM, 12 yrs and above (Pfizer) 08/10/2022 H1N1 2009 Influenza, IM 11/04/2009 Hepatitis B, 20+ yrs 07/13/2013,06/08/2013 Pneumococcal Conjugate Vacci ne, 20-valent ([id number]) 02/15/2023 Pneumococcal Polysaccharide PPV23 (Pneumovax) 04/26/2009 Seasonal [...] No 07/17/2024 Does the household have a [facility] source of income? (Household - for ages [...] encounter Miscellaneous Notes * Telephone Encounter - Annette Johnson LPN - 07/17/2024 1:06 PM EST Saida discharged from [facility] on 07/14/24. Nephrology was consulted for BLAIRE/CKD [...] post d/c w/ Dr Brown, her regular education administrator (2) CKD (chronic kidney disease) stage 4, [...] Care Team (Late st Contact Info) Description 07/20/2024 5:20 PM EST Office Visit Family Practice [facility] [address] [place] [address] Lani Vargas PA-C [address] [place] [address] [address] 08/04/2024 10:00 AM EST Imaging Radiology [facility] [address] [facility] [address] [facility] [place] [address] 09/14/2024 2:20 PM EST [facility] [address] [place] [address] Cali Brown MD [address] [place] [address] Scheduled Procedures Name Priority Associated Diagnoses Date/Ti [...] Additional history exists CKD PHOS USE SMARTSET 79033 07/16/202406/26, 03/11/2023, 08/03/2022 CKD HGB USE SMARTSET 11853 11/21/202411/21, 07/16/2023, 07/16/2023, Additional history exists Diabetic [...] filedocumented as of this encounter Care Teams Stock Clipper Relationship Specialty Start Date End Date Jonathan Rees III, MD [address] [place] [address] PCP - General 03/09/1996 documented as of this encounter
--- OUTSIDE RECORDS SUMMARY | 2024-09-03 12:15 | External Medical Summary | Summary of Care ---
Author Name Unknown Organization [facility] Address [address] [facility] [place] [address] Phone [phone] Care Team Providers Care Cyber Security Administrator Name Role Phone Cabrera SCALES MD, Jonathan Potter Primary Care Provider [phone] Reason for Referral * Evaluate & Treat - Unlimited Visits (Within 10 days (routine)) - Authorized Specialty Diagnoses / Procedures Referred By Ata workman Referred To Contact Gastroenterology Diagnoses Other cirrhosis of liver (HCC) Lani Vargas PA-C [address] [place] [address] [address] Phone: tel: fax: Referral ID Status Reason Start Date Expiration Date Visits Requested Visits Authorized [id number] Authorized Specialty Services Required 4 [phone] Question Answer Referral Priority Within 10 days (routine) Where should this appointment be scheduled? [facility] For what condition is the patient being referred? 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 Active Methyl Ktfvvtuzmm-Xtlv-Bl nthol 2-4-1 % External Patch 2 times a day. 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) Inject 5 Units [...] Tablet 3 4 6:32 PM EDT 05/23/20 Active Additional Information Patient taking differently: 50 [...] as of this encounter (statuses as of 07/20/2024) Active Problems Problem Noted Date Diagnosed Date [...] as of this encounter (statuses as of 07/20/2024) Resolved Problems Problem Noted Date Diagnosed Date [...] as of this encounter (statuses as of 07/20/2024) Immunizations Name Administration Dates Next Due COVID-19 mRNA, LNP-s, No Pre serve, 2-Dose Series (Pfizer) 11/29/2020,11/08/2020 Covid-19, Mrna, Lnp-s, Pf, B ivalent, 30 Mcg, IM, 12 yrs and above (Pfizer) 08/10/2022 H1N1 2009 Influenza, IM 11/04/2009 Hepatitis B, 20+ yrs 07/13/2013,06/08/2013 Pneumococcal Conjugate Vacci ne, 20-valent ([id number]) 02/15/2023 Pneumococcal Polysaccharide PPV23 (Pneumovax) 04/26/2009 Seasonal [...] Sign Reading Time Taken Comments Blood Pressure 120/82 07/20/2024 5:21 PM EST Pulse 79 07/20/2024 5:21 PM EST Temperature 37.1 C (98.7 F) 07/20/2024 5:21 PM ES T Respiratory Rate 16 07/20/2024 5:21 PM EST Oxygen Saturation 97% 07/20/2024 5:21 PM EST Inhaled Oxygen Concentration - - Weight 98 kg (216 lb) 07/20/2024 5:21 PM EST Height - - Body Mass Index 37.66 04/11/2024 11:40 AM EDT documented in this encounter Patient Instructions * Patient Instructions* Lani Vargas PA-C - 07/20/2024 5:35 PM EST Taking Medicine Safely Medicine is given to help treat or prevent illness. But if you don't take it correctly, it might not help. It might even harm you. Your doctor or pharmacist can help you learn the right way to take your medicine. Listed below are some tips to help you take medicine safely. Safety Tips Have a routine for taking each medicine. Make it part of something you do each day, such as brushing your teeth or eating a meal. When you go to the hospital or your doctor's office, bring all your current medicines in their original boxes or bottles. If you can't do that, bring an up-to-date list of your medicines. Do not stop taking a prescription medicine unless your doctor tells you to. Doing so could make your condition worse. Do not share medicines. Let your doctor and pharmacist know of any allergies you have. Taking prescription medicines with alcohol, street drugs, herbs, supplements, or even some alrl-xwd-frrieyr medicines can be harmful. Talk to your doctor or pharmacist before using any of these things while taking a prescription medicine. When filling your prescriptions, try using the same pharmacy for all your medicines. If not, let the pharmacist know what medicines you are already on. Keep medicines out of the reach of children and pets. Do not use medicine that has or that doesn't look or smell right. Get rid of it properly. To find out the right way to get rid of medicine: Call your [facility] or [facility]'s household trash and recycling service and ask if a drug take-back program is available in your community. Call your local pharmacy and ask the right way to get rid of the medicine. Go to http://www.fda.gov/ForConsumers/ConsumerUpdates/oby264002 to learn how to get rid of medicines safely. Using Generic Medicines Medicines have brand names and generic (chemical) names. When a medicine is first made, it is sold only under its brand name. Later, it can be made and sold as a generic. Generic medicines cost less than brand-name medicines and most work just as well. Most people can use the generic medicine instead of the brand-name medicine, unless their doctor says otherwise. [facility], [address] [place] [address], [place] [address]. All rights reserved. This information is not intended as a substitute for professional medical care. Always follow your healthcare professional's instructions. Coping with Your Diagnosis of a Chronic Health Condition If you have a chronic health condition, you have a problem that may not go away over time. Heart disease, asthma, arthritis, and diabetes are just a few of the chronic conditions that exist. Right now, these conditions have no known cure. But you can take an active role in managing your health. Coping with Your Diagnosis If you've just learned about your health condition, you may be angry, depressed, or afraid. Or you might feel relieved just to know what's wrong. Even if you've known about your health problem for a while, adjusting to it can be hard. But learning about your condition can help you cope. Look for books at your local library. If you have access to a computer, check the Internet. Or contact a group that focuses on your specific problem. Accepting Change Change is hard for most people. Yet right now you may be facing many changes. What you eat or the way you work may change. Your moods, and even your symptoms, might vary from day to day. Although it isn't easy, learning to accept change can help you feel more in control. Taking Control Feeling you have control can make living with your condition easier. Discuss treatment options withyour health care provider. The more you know, the more active you can be in your care. Moving Forward You may wonder whether you will be able to do the things you've always done. That depends on your age, the condition you have, and your goals. To make the most of each day, try to build caring relationships, be active, and eat right. Also, do your best to keep a sense of humor. 4888-[address]74 [facility], [address] [place] [address], [place] [address]. All rights reserved. This information is not intended as a substitute for professional medical care. Always follow your healthcare professional's instructions. Taking an Active Role in Your Medicines Take the time to learn about your medicine. For instance, why are you taking it? What does it do? Work with your doctor or other health care providers to get the answers you need. Talk to your pharmacist about how to take each medicine, and ask for a fact sheet on each one. Ask Questions About Your Medicine What is the name of the medicine? Why do I need to take it? When should I take it? How should I take it: with water? with food? on an empty stomach? How much do I take? What do I do if I miss a dose? What side effects could it cause and which ones should I call the doctor about? Are there any foods or medicines I should avoid while taking this medicine? Keeping track of your medications? Name of medicine: Taken for: Dose: Time(s) to take it: Take an Active Role Fill all your prescriptions at the same pharmacy. This keeps your medicine history in one place. Talk to the pharmacist. Make sure you understand how to take each medicine. Ask for a fact sheet about each one. Tell your doctor and pharmacist about all the prescription and ofrp-ruv-mekruey medicines you take.This includes vitamins and herbal remedies. Tell your doctor and pharmacist if you have any medical conditions or allergies to any medicine or food, or if you are or . Keep a list of all your medicines. Use the sample to the right as a guide for the type of information needed. [id number] [facility], [address] [place] [address], [place] [address]. All rights reserved. This information is not intended as a substitute for professional medical care. Always follow your healthcare professional's instructions. documented in this encounter Progress Notes * Lani Vargas PA-C - 07/20/2024 5:35 PM EST SUBJECTIVE: Saida Giron is a 64 year old female. Chief Complaint Patient presents with Hospital Follow-Up Hospital Follow-Up Recent Admission: Patient was recently admitted to [facility]. The date of discharge was 07/14. Discharge report received and reviewed. HPI: patient is a 64 year old female who presents for a follow up after a recent admission for cirrhosis and kidney failure. Has been weighing herself and last 2 days has been 213 lbs. Pants are feeling tight. Taking lasix 80 mg twice daily. She is also on spironalactone 50 mg bid. Up several timesat night to urinate; 3- 4 times per night. She is on fluid restrictions 1200ml per day. Blood sugars running well. Feels tired and exhausted all the time. 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 Run at 100mL/hr. 200 mL 0 Eliquis 5 MG Oral Tablet Take [...] a day as needed.) 18 g 3 Docusate Sodium 100 MG Oral Capsule (Colace) Take 1 Capsule by mouth 2 times a day as needed. OneTouch Delica Plus [id number] USE TWICE DAILY 200 Each 3 OneTouch Verio In Vitro [...] 2 times a day.) 15 mL 3 Spironolactone 50 MG Oral Tablet (Aldactone) Take 2 Tablets by mouth in the morning. (Patient taking differently: Take 1 Tablet by mouth in the morning and 1 Tablet before bedtime.) 180 Tablet 3 Multivitamin Adult Oral Tablet Take 1 Tablet by mouth in the morning. Pantoprazole Sodium 20 MG Oral Tablet Delayed Release (Protonix) Take 1 Tablet by mouth 2 times a day with morning and evening meals. 180 Tablet 1 traMADol HCl 50 MG Oral Tablet (Ultram) TAKE 1 TABLET BY MOUTH EVERY 6 HOURS NEEDED FOR MODERATEPAIN 30 Tablet 0 rOPINIRole HCl 0.25 MG Oral Tablet (Requip) Take 1 Tablet by mouth at bedtime. 90 Tablet 3 Diclofenac Sodium 1 % External Gel (Voltaren) Apply topically to back of knees 2 times a day. 400 g6 Rosuvastatin Calcium 5 MG Oral Tablet (Crestor) Take 1 Tablet by mouth in the morning. 90 Tablet 3 Furosemide 80 MG Oral Tablet (Lasix) Take 1 Tablet by mouth 2 times a day. Potassium Chloride ER 20 MEQ Oral Tablet Extended Release Take 1 Tablet by mouth 2 times a day. Methyl Lmxaxbwzla-Wags-Vqsxbrd 2-4-1 % External Patch 2 times a day. (Patient not taking: Reported on 07/20/2024) Empagliflozin 10 MG Oral Tablet (Jardiance) Take 1 Tablet by mouth in the morning. (Patient not taking: Reported on 07/20/2024) 90 Tablet 3 No current facility-administered medications for this visit. Current and discharge medications have been reconciled. Review of patient's allergies indicates: Allergen Reactions Metolazone Severe Electrolyte imbalance needing Hospital admission Morphine Sulfate Nausea/vomiting OBJECTIVE: BP 120/82 | Pulse 79 | Temp 98.7 F (37.1 C) (Tympanic) | Resp 16 | Wt 216 lb (98 kg) | SpO2 97% | BMI 37.66 kg/m | BSA 2.1 m Review Of Systems: Skin: negative Eyes: decreased vision Ears/Nose/Throat: negative Respiratory: negative Cardiovascular: hypertension Gastrointestinal: bloating or excess gas Genitourinary: negative Musculoskeletal: joint pains, swelling Neurologic: negative Psychiatric: sleep disturbance Hematologic/Lymphatic/Immunologic: negative Endocrine: diabetes PHYSICAL EXAM: General: alert, healthy, no distress, well nourished, well developed, comfortable, and cooperative Head: Normocephalic, No masses, lesions, tenderness or abnormalities Eye Exam: PERRLA, extraocular movements intact, conjunctiva are pink and non- injected, sclera clear Neck: supple, no adenopathy, no bruits, thyroid normal size, non-tender, without nodularity Heart: regular rate & rhythm, no murmur, and no gallops Lungs: chest symmetric with normal AP diameter, no chest deformities noted, normal respiratory rateand rhythm, no chest wall tenderness, diaphragmatic excursion normal, lungs clear to auscultation Abdomen: abdomen soft, non-tender, normal bowel sounds, no masses or organomegaly, no rebound or guarding, no CVA tenderness, and no bladder distention identified Extremities: less than 2 second capillary refill, no joint deformities, effusion, or inflammation, no edema, no skin discoloration, no clubbing, no cyanosis Neuro Exam: alert & oriented x 3 with fluent speech, no focal motor/sensory deficits ASSESSMENT: Hospital discharge follow-up (Primary) - DISCH MED RECON CUR MED LIS Other cirrhosis of liver (HCC) - HEPATOLOGY REFERRAL OP 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 | Check-out note: Schedule Hepatology Follow Up: Return in 1 month (on 08/20/2024). PLAN: Continue present medication(s): Follow up in 1 month(s). I spent a total of 40-54 minutes (exact time 42 mins) minutes on the date of service in preparation, delivery, and documentation of the care provided to Saida Giron excluding any time spent in performance of separately billed services. Lani Vargas PA-C documented in this encounter Nursing Notes * Alicia Crespo NA - 07/20/2024 5:13 PM EST Saida Giron presents for hospital follow up. Facility: [facility] Admit Date: 07/01/24 Discharge Date: 07/14/24 Dx: decompensated liver cirrhosis, BLAIRE on CKD Were any tests done: US abdomen ltd ascites, US venous doppler LE BI How are you feeling today? Patient reports she has been feeling fatigued and weak. Notes she has been trying to get up every hour to try and move to help with the fluid movement. She has been taking the lasix around 3-3:30p but she is up all night using the bathroom. Notes she feels like she's not peeing a whole lot. Describes it sometimes as a trickle and sometimes she can go a whole lot. She also notes she feels like she is retaining fluid again. Reports feeling bloated and states her pants feel tight since Wednesday. Medications & HM reviewed. documented in this encounter Plan of Treatment Upcoming Encounters Date Type Department Care Team (Late st Contact Info) Description 08/01/2024 4:00 PM EST Home Visit [facility] Coordination [facility] Integration [address] [place] [address] Radha Vargas, Community [facility] Patient Flow Coordinator [address] [place] [address] 08/04/2024 10:00 AM EST Imaging Radiology [facility] [address] [facility] [address] [place] [address] 08/18/2024 11:40 AM EST Office Visit Family Practice [facility] [address] [facility] [place] [address] Jonathan Rees III, MD [address] [place] [address] 09/05/2024 2:20 PM EST Office Visit Hepatology, [facility] [address] [place] [address] Deidra Mace MD [address] [place] [id number] 09/14/2024 2:20 PM EST Office Visit Nephrology, [facility] [address] [facility] [address] [place] [address] Cali Brown MD [address] [facility] [place] [address] Scheduled Procedures Name Priority Associated Diagnoses Date/Ti me COLONOSCOPY FLEXIBLE PROXIMAL DIAGNOSTIC Recall Screen for colon cancer Scheduled Referrals Name Type Priority Associated Diagnoses Orde r Schedule HEPATOLOGY REFERRAL OP Referral Within 10 days (routine) Other cirrhosis of liver (HCC) Ordered: 07/20/2024 Health Maintenance Due Date Last Done Comments [...] Additional history exists CKD PHOS USE SMARTSET 16737 07/16/202406/26, 03/11/2023, 08/03/2022 CKD HGB USE SMARTSET 32812 11/21/202411/21, 07/16/2023, 07/16/2023, Additional history exists Diabetic [...] as of this encounter Visit Diagnoses Diagnosis Hospital discharge follow-up- Primary Other follow-up examination Other cirrhosis of liver (HCC) 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
[2024-09-03 12:46] LABS: Basophils # (auto) 0.02 K/uL (0.00-0.20); Basophils % (auto) 0.8 %; Hemoglobin 9.6 g/dl (12.0-16.0); Immature Granulocytes # (auto) 0.01 K/uL (0.01-0.20); Immature Granulocytes % (auto) 0.4 %; Lymphocytes # (auto) 0.77 K/uL (1.20-3.40); Lymphocytes % (auto) 32.6 %; Mean Corpuscular Hemoglobin 29.9 pg (25.0-34.0); Mean Corpuscular Hgb Conc 34.3 g/dL (32.0-36.0); Mean Corpuscular Volume 87.2 fL (80.0-100.0); Mean Platelet Volume 9.7 fL (9.4-12.4); Monocytes # (auto) 0.34 K/uL (0.11-0.59); Monocytes % (auto) 14.4 %; Neutrophils # (auto) 1.22 K/uL (1.40-6.50); Neutrophils % (auto) 51.8 %; Platelet Count 138 K/uL (130-400); RDW Coefficient of Variation 13.7 % (11.5-14.5); RDW Standard Deviation 42.5 fL (36.4-46.3); Red Blood Count 3.21 M/uL (4.20-5.40); White Blood Count 2.36 K/ul (4.8-10.8)
[2024-09-03 12:53] LABS: Base Excess VBG 2.2 mEq/L; HCO3 VBG 28 mmol/L; Oxygen Saturation VBG < 60.0 %; PCO2 VBG 46 mmHg (38-50); PO2 VBG 26 mmHg; pH VBG 7.39 (7.36-7.41)
[2024-09-03 12:53] LABS: Alanine Aminotransferase 30 U/L (7-52); Albumin Globulin Ratio 0.9 (0.9-2); Albumin Level 3.7 gm/dl (3.4-5.0); Alkaline Phosphatase 96 U/L (34-104); Anion Gap 10 (3-11); Aspartate Aminotransferase 52 U/L (13-39); BUN Creatinine Ratio 20.1 (10-20); Bilirubin,Total 0.7 mg/dl (0.2-1.0); Blood Urea Nitrogen 46 mg/dl (6-23); Carbon Dioxide 27 mmol/L (21-32); Chloride 97 mmol/L (98-107); Globulin 4.1 gm/dl (2.5-4.0); Glucose 123 mg/dl (70-99(Fasting)); Potassium 3.9 mmol/L (3.5-5.1); Sodium 134 mmol/L (136-145); Total Protein 7.8 gm/dl (6.0-8.3)
--- NOTE | 2024-09-03 12:59 | XRay Report ---
XR chest 1V portable HISTORY: 64 years-old Female Dyspnea COMPARISON: 07/01/2024 TECHNIQUE: AP view of the chest FINDINGS: The mediastinal and hilar silhouettes are within normal limits. Atherosclerosis of the aorta. No pneu mothorax, pleural effusion or airspace consolidation. Chronic right-sided rib fractures. IMPRESSION: No acute process. ACT 112: Negative or not required by law. The above report was generated using voice recognition software. It may contain grammatical, syntax o r spelling errors. Electronically signed by: Alfred Adames M.D. 09/03/2024 12:58 PM
[2024-09-03 14:35] LABS: Adenovirus PCR Not Detected (NotDetected); Bordetella parapertussis PCR Not Detected (NotDetected); Bordetella pertussis PCR Not Detected (NotDetected); Chlamydia pneumoniae PCR Not Detected (NotDetected); Coronavirus 229E PCR Not Detected (NotDetected); Coronavirus CoV-2 (COVID19)PCR Not Detected (NotDetected); Coronavirus HKU1 PCR Not Detected (NotDetected); Coronavirus NL63 PCR Not Detected (NotDetected); Coronavirus OC43PCR Not Detected (NotDetected); Human Metapneumovirus PCR Not Detected (NotDetected); Influenza A (H1 2009) PCR DETECTED (NotDetected); Influenza B PCR Not Detected (NotDetected); Mycoplasma pneumoniae PCR Not Detected (NotDetected); Parainfluenza Virus 1 PCR Not Detected (NotDetected); Parainfluenza Virus 2 PCR Not Detected (NotDetected); Parainfluenza Virus 3 PCR Not Detected (NotDetected); Parainfluenza Virus 4 PCR Not Detected (NotDetected); Respiratory Syncytial VirusPCR Not Detected (NotDetected); Rhinovirus/Enterovirus PCR Not Detected (NotDetected)
--- NOTE | 2024-09-03 14:35 | Emergency Department Note ---
Impression & Plan Influenza A, Weakness ED Provider Note NAME: DESIREE VÁSQUEZ AGE: 64 SEX: F : 1960 ARRIVES VIA: Ambulance INFORMANT: Patient, ED PROVIDER(S): Jasbir Lyman MD CHIEF COMPLAINT: Shortness of breath HPI: This is a 64-year-old female presenting for shortness of breath. Patient was positive for COVID-19 over 3 weeks ago. She notes she did recover from this but has had increasing shortness of breath over the past few days. She specifically mentions worsening of the past 2 hours. She states she is have trouble doing her daily activities. Her elderly mother has to help her at this time. She notes she used to be able to sit up and had difficulty breathing only when laying down. She notes she has no diagnosed history of heart failure but was given a diuretic. She notes now persistent dyspnea whether laying flat, sitting up or with exertion. Notes no anterior chest pain. ROS: See above HPI for pertinent positives & negatives. A total of 10 systems reviewed and were otherwise negative. PAST MEDICAL HISTORY: See Below PAST SURGICAL HISTORY: See Below FAMILY HISTORY: See Below SOCIAL HISTORY: See Below HOME MEDICATIONS: See Below ALLERGIES: See Below VITALS: See Below PHYSICAL EXAMINATION: General: Fatigued appearing Head: Normocephalic and atraumatic Eyes: Normal inspection, extraocular muscles intact Ear, nose, throat: Normal external exam Neck: Normal range of motion Respiratory: lungs clear to auscultation bilaterally Cardiovascular: Regular rate/rhythm, no murmur GI: soft, nontender, no guarding or rebound Extremities: nontender, moves all extremities Neuro: The patient awake and alert, appropriately conversive, no focal deficits, symmetric faces Skin: Warm, dry, and intact MEDICAL DECISION MAKING: This is a 64-year-old female sent for shortness of breath. Will do screening workup to assess for CHF, upper respiratory infection, pneumonia. Patient does appear weak and may require admission due to safety concerns about discharge. Will do basic blood to assess for anemia as well. -Patient does not have a leukocytosis. Hemoglobin is stable at 9.6. VBG is reassuring at 7.39/46. Stable electrolytes and creatinine. BNP is negative at this time. -Chest Xray independently interpreted by me showing no pneumothorax, focal opacity, or pleural effusions. -ECG independently interpreted by me with normal sinus rhythm, rate of 78, normal WV, normal QRS, normal QTc, no ST segment elevations consistent with STEMI criteria -Patient influenza A positive. Did discuss findings with the patient and she does confirm that she is too weak to go home. She needs help getting to the bathroom at this time. Will admit for influenza A, weakness, failure to thrive Differential diagnosis: Pneumonia, upper respiratory infection, sepsis, anemia Diagnostics interpreted by me: ECG: ECG independently interpreted by me with normal sinus rhythm, rate of 78 [normal WV, normal QRS, normal QTc, no ST segment elevations consistent with STEMI criteria Cardiac Monitoring: An order was placed for continuous cardiac monitoring. The monitor shows a rate of 78 with sinus rhythm. Past Med/Surg History Problem List (Updated 08/14/24 @ 00:05 by Background Dahuy) Weakness (Acute) Influenza A (Acute) Influenza A CHF exacerbation (Acute) Fluid overload (Acute) Dyspnea on exertion Encounter for pre-operative examination Hyperkalemia History of acute renal failure CKD (chronic kidney disease) stage 4, GFR 15-29 ml/min CKD (chronic kidney disease) (Acute) Back pain, thoracic (Acute) Stable burst fracture of T8 vertebra (Acute) BLAIRE (acute kidney injury) (Acute) Acute hyperglycemia (Acute) Anemia (Acute) Acute GI bleeding (Acute) Hypokalemia (Acute) Weakness (Acute) Hypokalemia Upper GI bleed Volume overload 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 jiang, [facility] Restless leg syndrome Hyperlipidemia GERD (gastroesophageal reflux disease) DVT (deep venous thrombosis) ~2021, unknown cause>"found it when they were doing testing on her kidneys and liver" Surgical History History of cataract surgery left History of abdominal paracentesis multiple; most recent 02/2023, [facility] History of esophagogastroduodenoscopy (EGD) History of colonoscopy History of breast biopsy left>benign Family History Mother Hypertension Father Hypertension COPD (chronic obstructive pulmonary disease) Social History Smoking Status: Never smoker Second Hand Exposure: Yes; Do You Dip or Chew Tobacco: No; Hx Alcohol Use: No Hx Substance Use: No Preferred Language: Turkmen Communication Ability: Effective Hydro Mechanic Required: No Beliefs That Will Affect Care: None marital status: Single Current Living Situation: Family Current Living Situation Comment: lives with mother Feels Safe at Home: Yes Assistive Devices: Cane and Walker Allergies Allergies Allergy/AdvReac Type Severity Reaction Status Date / Time morphine AdvReac Intermediate Vomiting Verified 10/20/23 07:27 Home Meds Home Medications Medication Instructions Recorded Confirmed albuterol sulfate 90 mcg/actuation 2 puff inhalation QID PRN 01/21/22 09/03/24 aerosol inhaler wheezing/SOB docusate sodium 100 mg capsule 100 mg PO DAILY PRN Constipation 05/15/22 09/03/24 (Colace) methyl salicylate 15 %-menthol 10 1 applic topical BID PRN Pain 02/25/23 09/03/24 % topical cream rosuvastatin 5 mg tablet 5 mg PO QAM 02/25/23 09/03/24 tramadol 50 mg tablet 50 mg PO Q6H PRN Pain 02/25/23 09/03/24 pantoprazole 40 mg tablet,delayed 20 mg PO BID 03/17/23 09/03/24 release insulin aspart U-100 100 unit/mL 5 unit subcut BID 09/30/23 09/03/24 (3 mL) subcutaneous pen (Novolog FlexPen U-100 Insulin aspart) insulin glargine 100 unit/mL (3 22 unit subcut QAM 09/30/23 09/03/24 mL) subcutaneous pen (Lantus Solostar U-100 Insulin) multivitamin 1 tab PO QAM 09/30/23 09/03/24 furosemide 80 mg tablet (Lasix) 80 mg PO DAILY 09/03/24 09/03/24 spironolactone 50 mg tablet 50 mg PO QAM 09/03/24 09/03/24 Previous Rx's Medication Instructions Recorded apixaban 5 mg tablet (Eliquis) 5 mg PO Q12H #60 tabs 07/14/24 ropinirole 0.25 mg tablet 0.25 mg PO HS #30 tabs 07/14/24 Results & Data (ED) Vital Signs Vital Signs - 24 hr 09/03/24 12:10 09/03/24 12:10 09/03/24 12:10 Temperature 36.9 C Temperature Source Oral Pulse Rate 77 Pulse Rate [Apical] Pulse Rhythm Regular Pulse Rhythm [Apical] Pulse Strength Normal Pulse Strength [Apical] Respiratory Rate 19 Respiratory Effort / Characteristics Non-Labored Spontaneous Respiratory Depth Normal Normal Respiratory Pattern Regular Regular Blood Pressure 172/86 H Blood Pressure [Right Arm] Blood Pressure Mean 114 Blood Pressure Mean [Right Arm] Blood Pressure Position Sitting Blood Pressure Position [Right Arm] Pulse Oximetry 94 96 Oxygen Delivery Method Room Air Room Air Sepsis Recent Fever Within 48 Hours No Sepsis New/Unexplained Change in Mental Status No Sepsis Action Taken by Nursing No Action Required 09/03/24 12:10 09/03/24 12:32 09/03/24 13:08 Temperature Temperature Source Pulse Rate 77 78 Pulse Rate [Apical] 80 Pulse Rhythm Regular Pulse Rhythm [Apical] Regular Pulse Strength Pulse Strength [Apical] Normal Respiratory Rate 16 16 Respiratory Effort / Characteristics Non-Labored Spontaneous Respiratory Depth Normal Respiratory Pattern Regular Blood Pressure Blood Pressure [Right Arm] Blood Pressure Mean Blood Pressure Mean [Right Arm] Blood Pressure Position Blood Pressure Position [Right Arm] Pulse Oximetry 96 96 Oxygen Delivery Method Room Air Sepsis Recent Fever Within 48 Hours Sepsis New/Unexplained Change in Mental Status Sepsis Action Taken by Nursing 09/03/24 14:00 09/03/24 14:17 09/03/24 16:00 Temperature Temperature Source Pulse Rate Pulse Rate [Apical] 83 72 Pulse Rhythm Pulse Rhythm [Apical] Regular Regular Pulse Strength Pulse Strength [Apical] Normal Normal Respiratory Rate 19 18 Respiratory Effort / Characteristics Non-Labored Spontaneous Non-Labored Spontaneous Respiratory Depth Normal Normal Respiratory Pattern Regular Regular Blood Pressure Blood Pressure [Right Arm] 131/77 131/74 Blood Pressure Mean Blood Pressure Mean [Right Arm] 95 93 Blood Pressure Position Blood Pressure Position [Right Arm] Sitting Sitting Pulse Oximetry 98 96 Oxygen Delivery Method Room Air Room Air Sepsis Recent Fever Within 48 Hours Sepsis New/Unexplained Change in Mental Status Sepsis Action Taken by Nursing 09/03/24 16:23 Temperature Temperature Source Pulse Rate 78 Pulse Rate [Apical] Pulse Rhythm Pulse Rhythm [Apical] Pulse Strength Pulse Strength [Apical] Respiratory Rate Respiratory Effort / Characteristics Respiratory Depth Respiratory Pattern Blood Pressure Blood Pressure [Right Arm] Blood Pressure Mean Blood Pressure Mean [Right Arm] Blood Pressure Position Blood Pressure Position [Right Arm] Pulse Oximetry Oxygen Delivery Method Sepsis Recent Fever Within 48 Hours Sepsis New/Unexplained Change in Mental Status Sepsis Action Taken by Nursing Laboratory Data 09/03/24 12:12 09/03/24 12:12 Lab Results 09/03/24 09/03/24 09/03/24 Range/Units 12:12 12:48 13:00 WBC 2.36 L (4.8-10.8) K/ul RBC 3.21 L (4.20-5.40) M/uL Hgb 9.6 L (12.0-16.0) g/dl Hct 28.0 L (37.0-47.0) % MCV 87.2 (80.0-100.0) fL MCH 29.9 (25.0-34.0) pg MCHC 34.3 (32.0-36.0) g/dL RDW Std Deviation 42.5 (36.4-46.3) fL RDW Coeff of Samy 13.7 (11.5-14.5) % Plt Count 138 (130-400) K/uL MPV 9.7 (9.4-12.4) fL Immature Gran % (Auto) 0.4 % Neut % (Auto) 51.8 % Lymph % (Auto) 32.6 % [place] % (Auto) 14.4 % Eos % (Auto) 0.0 % Baso % (Auto) 0.8 % Neut # (Auto) 1.22 L (1.40-6.50) K/uL Lymph # (Auto) 0.77 L (1.20-3.40) K/uL [place] # (Auto) 0.34 (0.11-0.59) K/uL Eos # (Auto) 0.00 (0.00-0.50) K/uL Baso # (Auto) 0.02 (0.00-0.20) K/uL Immature Gran # (Auto) 0.01 (0.01-0.20) K/uL VBG pH 7.39 (7.36-7.41) VBG pCO2 46 (38-50) mmHg VBG pO2 26 mmHg VBG HCO3 28 mmol/L VBG O2 Saturation < 60.0 % VBG Base Excess 2.2 mEq/L Sodium 134 L (136-145) mmol/L Potassium 3.9 (3.5-5.1) mmol/L Chloride 97 L (98-107) mmol/L Carbon Dioxide 27 (21-32) mmol/L Anion Gap 10 (3-11) BUN 46 H (6-23) mg/dl Creatinine 2.29 H (0.6-1.2) mg/dl Est Cr Clr Drug Dosing Not Reportable eGFR 23.57 BUN/Creatinine Ratio 20.1 H (10-20) Glucose 123 H (70-99(Fasting)) mg/dl Calcium 9.0 (8.6-10.3) mg/dl Total Bilirubin 0.7 (0.2-1.0) mg/dl AST 52 H (13-39) U/L ALT 30 (7-52) U/L Alkaline Phosphatase 96 (34-104) U/L Total Creatine Kinase 136 (26-192) U/L Troponin I High Sens 14.0 (0-14) pg/ml B-Natriuretic Peptide 33 (0-100) pg/ml Total Protein 7.8 (6.0-8.3) gm/dl Albumin 3.7 (3.4-5.0) gm/dl Globulin 4.1 H (2.5-4.0) gm/dl Albumin/Globulin Ratio 0.9 (0.9-2) Nasal Influ A H1 2008 PCR DETECTED A (NotDetected) Adenovirus (PCR) Not Detected (NotDetected) B. pertussis DNA (PCR) Not Detected (NotDetected) B.parapertussis DNA PCR Not Detected (NotDetected) C. pneumoniae DNA (PCR) Not Detected (NotDetected) Coronavirus OC43 (PCR) Not Detected (NotDetected) Coronavirus HKU1 (PCR) Not Detected (NotDetected) Coronavirus 229E (PCR) Not Detected (NotDetected) SARS-CoV-2 (PCR) Not Detected (NotDetected) Coronavirus NL63 (PCR) Not Detected (NotDetected) Human Metapneumovir PCR Not Detected (NotDetected) Influenza Type B (PCR) Not Detected (NotDetected) M. pneumoniae (PCR) Not Detected (NotDetected) Parainfluenza 1 (PCR) Not Detected (NotDetected) Parainfluenza 2 (PCR) Not Detected (NotDetected) Parainfluenza 3 (PCR) Not Detected (NotDetected) Parainfluenza 4 (PCR) Not Detected (NotDetected) RSV (PCR) Not Detected (NotDetected) Entero/Rhino (PCR) Not Detected (NotDetected) Administered Medications Guaifenesin (Guaifenesin 600 Mg Tabcr) 600 mg PO Q12 LETI Stop: 10/03/24 15:14 Last Admin: 09/03/24 15:47 Dose: 600 mg Documented By: REGINO Sodium Chloride (Nss) 500 mls @ 50 mls/hr IV .Q10H LETI Stop: 09/04/24 01:44 Last Admin: 09/03/24 16:18 Dose: 50 mls/hr Documented By: REGINO Oseltamivir Phosphate (Oseltamivir Phosphate Susp 30 Mg/5 Ml Udp) 30 mg PO DAILY [facility]; Protocol Stop: 09/08/24 15:14 Last Admin: 09/03/24 16:17 Dose: 30 mg Documented By: REGINO Discontinued Medications Methylprednisolone (Methylprednisolone 125 Mg/2 Ml Vial) 40 mg IV NOW STA Stop: 09/03/24 15:33 Last Admin: 09/03/24 15:46 Dose: 40 mg Documented By: REGINO Imaging Data Radiologist's Impression: Chest X-Ray 09/03/24 12:32 XR chest 1V portable HISTORY: 64 years-old Female Dyspnea COMPARISON: 07/01/2024 TECHNIQUE: AP view of the chest FINDINGS: The mediastinal and hilar silhouettes are within normal limits. Atherosclerosis of the aorta. No pneumothorax, pleural effusion or airspace consolidation. Chronic right-sided rib fractures. IMPRESSION: No acute process. ACT 112: Negative or not required by law. The above report was generated using voice recognition software. It may contain grammatical, syntax or spelling errors. Electronically signed by: Alfred Adames M.D. 09/03/2024 12:58 PM Discharge Plan Visit Data Chief Complaint: Shortness of Breath/Dyspnea ED Provider: Jasbir Lyman Discharge Problem: Influenza A, Weakness Forms Stand Alone Forms: My [facility] Prescriptions Prescriptions: No Action albuterol sulfate 90 mcg/actuation HFA aerosol inhaler 2 puff INHALATION QID PRN (Reason: wheezing/SOB) docusate sodium [Colace] 100 mg capsule 100 mg PO DAILY PRN (Reason: Constipation) tramadol 50 mg Tablet 50 mg PO Q6H PRN (Reason: Pain) rosuvastatin 5 mg Tablet 5 mg PO QAM methyl salicylate-menthol 15-10 % Cream 1 applic TOPICAL BID PRN (Reason: Pain) pantoprazole 40 mg tablet,delayed release (DR/EC) 20 mg PO BID multivitamin Tablet 1 tab PO QAM insulin aspart U-100 [Novolog FlexPen U-100 Insulin] 100 unit/mL (3 mL) insulin pen 5 unit subcut BID insulin glargine [Lantus Solostar U-100 Insulin] 100 unit/mL (3 mL) insulin pen 22 unit SUBCUT QAM Eliquis 5 mg Tablet 5 mg PO Q12H Qty: 60 0RF ropinirole 0.25 mg Tablet 0.25 mg PO HS Qty: 30 0RF furosemide [Lasix] 80 mg tablet 80 mg PO DAILY spironolactone 50 mg tablet 50 mg PO QAM Referrals Referrals: Jonathan Rees MD [Primary Care Provider] -
[2024-09-03] MEDS ORDERED: ALBUT/IPRATROP 3MG/0.5MG NEB 3 ML VIAL NEB PRN (15:13)
[2024-09-03] MEDS ORDERED: DEXTROSE 50% 50 ML SYRINGE IV PRN (15:14)
[2024-09-03] MEDS ORDERED: MAGNESIUM HYDROXIDE SUSP 30 ML UDC PO PRN (15:14)
[2024-09-03] MEDS ORDERED: GLUCAGON FOR INJ 1 MG VIAL SQ PRN (15:14)
[2024-09-03] MEDS ORDERED: GLUCOSE 40% GEL 15 GM TUBE PO PRN (15:14)
[2024-09-03] MEDS ORDERED: CARBOHYDRATES FOR HYPOGLYCEMIA PO PRN (15:14)
[2024-09-03] MEDS ORDERED: GLUCOSE 10 TAB/TUBE PO PRN (15:14)
[2024-09-03] MEDS ORDERED: ALUMINUM/MAGNESIUM SUSP 30 ML UDC PO PRN (15:14)
--- NOTE | 2024-09-03 15:33 | History & Physical Report ---
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 Admitting CXR with no acute finding, BMP WNL, troponin WNL. VBG WNL. Respiratory BioFire positive for influenza A. EKG with NSR. Tamiflu adjusted to renal function, Mucinex, Tessalon Perles, incentive spirometer. Prednisone taper for possible mild exacerbation of asthma, continue to follow with medical response. Gentle IV fluid, 500 mL to p.o. intake improves. PT/OT. tissue transfer and EGD after emergency room pharmacist T2DM: SSI while in hospital. Other chronic medical conditions: CHF, JOYCE, CKD 3b, RLS, PE -- c/w or resume home meds as when able. monitor volume status closely. Pt seems clinically dehydrated at exam. DVT Px: Pt on eliquis Full Code History of Present Illness Chief Complaint: Unable to care for self, increasing cough Primary Care Provider: Jonathan Rees MD 64-year-old lady with PMH of T2DM, diabetic retinopathy of her both eyes, CKD stage IIIb, HLD, asthma/moderate persistent, portal hypertension, chronic diastolic heart failure, liver cirrhosis secondary to JOYCE, restless legs presented to the ED with complaint of increasing cough and difficulty breathing since last 2 days. Of note, patient had COVID about 3 weeks ago, which she reports her cough has improved until 2 to 3 days ago when it started again and is becoming worse. She is feeling hard to breathe as well. She is feeling very weak and has not eaten since last 2 to 3 days. Patient reports some nausea, denies vomiting. Patient reports that her elderly mother has to help around her home due to this acute illness. This is affecting her activities of daily living and she is not able to take care of self at home and hence she presented to the ED. Patient reports dry cough since 2 days, some sore throat, some nausea, diarrhea about 3 days ago and no bowel movement since then. Patient denies fever/chest pain/vomiting/belly pain/pain or burning while passing urine. Patient reports feeling weak and is unable to take care of the self. Patient denies smoking/alcohol/recreational drug use. Medications reviewed with the patient at bedside. Full code Plan of care discussed with the patient in detail at bedside. Allergies Allergy/AdvReac Type Severity Reaction Status Date / Time morphine AdvReac Intermediate Vomiting Verified 10/20/23 07:27 Home Medications Medication Instructions Recorded Confirmed Type albuterol sulfate 90 mcg/actuation 2 puff inhalation QID PRN 01/21/22 07/01/24 History aerosol inhaler wheezing/SOB docusate sodium 100 mg capsule 100 mg PO DAILY PRN Constipation 05/15/22 07/01/24 History (Colace) methyl salicylate 15 %-menthol 10 1 applic topical BID PRN Pain 02/25/23 07/01/24 History % topical cream rosuvastatin 5 mg tablet 5 mg PO QAM 02/25/23 07/01/24 History tramadol 50 mg tablet 50 mg PO Q6H PRN Pain 02/25/23 07/01/24 History pantoprazole 40 mg tablet,delayed 20 mg PO BID 03/17/23 07/01/24 History release empagliflozin 10 mg tablet 10 mg PO QAM 09/30/23 07/01/24 History (Jardiance) insulin aspart U-100 100 unit/mL 5 unit subcut BID 09/30/23 07/01/24 History (3 mL) subcutaneous pen (Novolog FlexPen U-100 Insulin aspart) insulin glargine 100 unit/mL (3 22 unit subcut QAM 09/30/23 07/01/24 History mL) subcutaneous pen (Lantus Solostar U-100 Insulin) multivitamin 1 tab PO QAM 09/30/23 07/01/24 History apixaban 5 mg tablet (Eliquis) 5 mg PO Q12H #60 tabs 07/14/24 Rx furosemide 80 mg tablet (Lasix) 80 mg PO BID #60 tabs 07/14/24 Rx ropinirole 0.25 mg tablet 0.25 mg PO HS #30 tabs 07/14/24 Rx spironolactone 50 mg tablet 50 mg PO BID #60 tabs 07/14/24 Rx Past Med/Surg History Problem List (Updated 08/14/24 @ 00:05 by Background Manuel) Influenza A CHF exacerbation (Acute) Fluid overload (Acute) Dyspnea on exertion Encounter for pre-operative examination Hyperkalemia History of acute renal failure CKD (chronic kidney disease) stage 4, GFR 15-29 ml/min CKD (chronic kidney disease) (Acute) Back pain, thoracic (Acute) Stable burst fracture of T8 vertebra (Acute) BLAIRE (acute kidney injury) (Acute) Acute hyperglycemia (Acute) Anemia (Acute) Acute GI bleeding (Acute) Hypokalemia (Acute) Weakness (Acute) Hypokalemia Upper GI bleed Volume overload 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 jiang, [facility] Restless leg syndrome Hyperlipidemia GERD (gastroesophageal reflux disease) DVT (deep venous thrombosis) ~2021, unknown cause>"found it when they were doing testing on her kidneys and liver" Surgical History History of cataract surgery left History of abdominal paracentesis multiple; most recent 02/2023, [facility] History of esophagogastroduodenoscopy (EGD) History of colonoscopy History of breast biopsy left>benign Family History Mother Hypertension Father Hypertension COPD (chronic obstructive pulmonary disease) Social History Smoking Status: Never smoker Second Hand Exposure: Yes; Do You Dip or Chew Tobacco: No; Hx Alcohol Use: No Hx Substance Use: No Preferred Language: Kosovan Communication Ability: Effective 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 Physical Exam Physical Exam: GENERAL: Alert and oriented x3. NAD, on RA. Appears ill/frail/weak. HEENT: No pallor, no icterus. Pupils equal, round and reactive to light. Oral mucosa moist. mildly congested/erythematous throat. NECK: No JVD, no neck masses. HEART: S1 and S2 heard. Regular rate and rhythm. No murmur, no gallop. RESPIRATORY SYSTEM: Normal AP diameter. No accessory muscle use. No wheezing, no crackles. ABDOMEN: Soft, bowel sounds present, nontender, no distention. CENTRAL NERVOUS SYSTEM: No facial droop. Speech is clear. Obeys simple commands. Moves extremities. EXTREMITIES: No edema, no swelling, no erythema seen. Results & Data Results & Data Vital Signs (Past 12 Hours) Vital Signs Temp Pulse Pulse Resp BP BP Pulse Ox 09/03/24 14:17 131/77 09/03/24 14:00 83 19 98 09/03/24 13:08 78 09/03/24 12:32 77 16 96 09/03/24 12:10 80 16 96 09/03/24 12:10 96 09/03/24 12:10 36.9 C 77 19 172/86 H 94 O2 Del Method 09/03/24 14:17 09/03/24 14:00 Room Air 09/03/24 13:08 09/03/24 12:32 Room Air 09/03/24 12:10 09/03/24 12:10 Room Air 09/03/24 12:10 Room Air
[2024-09-03 15:38] LABS: Creatine Kinase 136 U/L (26-192)
[2024-09-03] MEDS: methylPREDNISolone 125 MG/2 ML VIAL IV STA (15:46)
[2024-09-03] MEDS: guaiFENesin 600 MG TABCR PO SCH (15:47)
[2024-09-03] MEDS: OSELTAMIVIR PHOSPHATE SUSP 30 MG/5 ML UDP PO SCH (16:17)
[2024-09-03] MEDS: SODIUM CHLORIDE 0.9% 500 ML IV SCH (16:18)
[2024-09-03] MEDS: INSULIN ASPART PER UNIT CHARGE SC SCH (19:02)
[2024-09-03] MEDS: APIXABAN 5 MG TABLET PO SCH (19:05)
[2024-09-03] MEDS: Patient's HEIGHT &/or WEIGHT Needed STA (19:42)
[2024-09-03] MEDS: PANTOprazole 40 MG TAB PO SCH (21:23)
[2024-09-03] MEDS: BENZONATATE 100 MG CAPSULE PO SCH (21:26)
[2024-09-03] MEDS: rOPINIRole HCL 0.25 MG TABLET PO SCH (21:26)
[2024-09-03] MEDS: LANTUS PER UNIT CHARGE SQ SCH (22:36)
[2024-09-04] MEDS ORDERED: hydrOXYzine HCl 10 MG TAB PO PRN (03:58)
[2024-09-04] MEDS: hydrOXYzine HCl 10 MG TAB PO STA (04:21)
--- NOTE | 2024-09-04 05:30 | XRay Report ---
EXAM: XR chest 1V portable CLINICAL HISTORY: SOB. TECHNIQUE: An X-ray image of the chest is obtained in AP projection. COMPARISON: 07/01/2024 X-ray. FINDINGS: Pulmonary Parenchyma: No evidence of consolidation, collapse, or focal opacities. No pulmonary nodules are identified. No evidence of pleural effusion or pleural thickening. Heart and Mediastinum: Heart size and shape are normal. Bilateral prominent hilar vascular shadows; likely congestion. Bony Thorax: Bony thorax appears intact without fractures or deformities. Soft Tissues: Elevated left diaphragmatic copula. IMPRESSION: 1. No acute cardiopulmonary abnormalities are identified. 2. Bilateral prominent hilar vascular shadows; likely congestion. 3. Elevated left diaphragmatic copula. 4. Unchanged study. Electronically signed by Nelson Bass 09-04-2024 05:29 AM
[2024-09-04] MEDS: ALBUT/IPRATROP 3MG/0.5MG NEB 3 ML VIAL NEB STA (05:53)
[2024-09-04 05:59] LABS: Hemoglobin 9.6 g/dl (12.0-16.0); Mean Corpuscular Hemoglobin 29.4 pg (25.0-34.0); Mean Corpuscular Hgb Conc 34.3 g/dL (32.0-36.0); Mean Corpuscular Volume 85.9 fL (80.0-100.0); Mean Platelet Volume 9.5 fL (9.4-12.4); Platelet Count 122 K/uL (130-400); RDW Coefficient of Variation 13.4 % (11.5-14.5); RDW Standard Deviation 41.9 fL (36.4-46.3); Red Blood Count 3.26 M/uL (4.20-5.40); White Blood Count 1.59 K/ul (4.8-10.8)
[2024-09-04 06:14] LABS: BUN Creatinine Ratio 25.5 (10-20); Calcium 8.4 mg/dl (8.6-10.3); Creatinine Clr Calc Pharmacy 33.1 ml/min; Magnesium 2.1 mg/dl (1.7-2.4); Phosphorus 4.6 mg/dl (2.5-4.9); Potassium 4.4 mmol/L (3.5-5.1)
[2024-09-04 06:18] LABS: Appearance Urine Cloudy (Clear); Bacteria Urine Automated 4+ (None Seen); Bilirubin Urine Negative (Negative); Blood Urine Negative (Negative); Color Urine Yellow; Glucose Urine UA Trace (Negative); Ketones Urine Trace (Negative); Leukocyte Esterase Urine Trace (Negative); Nitrite Urine Negative (Negative); Protein Urine Negative (Negative); Specific Gravity Urine 1.018 (1.000-1.030); Urobilinogen Urine Negative (Negative); WBC Urine Automated 0-5 /hpf (0-5)
[2024-09-04 06:29] LABS: Calcium Oxalate Crystals Urine Present (None Prsent)
[2024-09-04 07:32] LABS: Estimated Average Glucose 171 mg/dl; Hemoglobin A1C 7.6 % (4.5-5.6)
[2024-09-04] MEDS: ROSUVASTATIN CALCIUM 5 MG TAB PO SCH (09:34)
[2024-09-04] MEDS: predniSONE 20 MG TAB PO SCH (09:34)
[2024-09-04] MEDS ORDERED: PHARMACY GLYCEMIC MGMT CONSULT PRN (11:49)
[2024-09-04] MEDS: LANTUS PER UNIT CHARGE SC ONE (13:12)
--- NOTE | 2024-09-04 14:00 | Pharmacy Report ---
Pharmacy Glycemic Short Note 2 - Date of Service September 04, 2024 - Glycemic Short BSG Results (Last 24 hours): 09/03/24 09/03/24 09/04/24 20:16 22:26 05:34 Glucose 246 H POC Glucose 179 H 251 H 09/04/24 09/04/24 09/04/24 07:59 11:34 11:35 Glucose POC Glucose 245 H 333 H* 341 H* 09/04/24 11:36 Glucose POC Glucose 341 H* OUTPATIENT ANTIDIABETIC REGIMEN: * Jardiance 10mg po QAM * Glargine 22 units SQ qAM (unclear if pt is still taking) * Novolog 5 units SQ BID (unclear if pt is still taking) HbA1c 7.6% on 09/04/24 ASSESSMENT: * 64 year old female admitted 09/04 for SOB/influenza A/possible asthma exacerbation. Pharmacy has been consulted for glycemic management while she is admitted as she is a type 2 diabetic who has been started on steroids. * BSGs from last evening were 179 and 251mg/dL. Lantus 9 units SQ bid was started as was a conservative sliding scale insulin regimen. * A total of 12 units of insulin were given yesterday (9 were basal and 3 were bolus). * Fasting BSG was 245mg/dL and lunch was 333mg/dL. She already received 9 units of Lantus this morning, so an additional 10 units of Lantus were ordered. A Lantus scale was also added for this evening (0,7, or 15 units). Bolus insulin parameters were tightened to a weight based stress of 3. * Since patient was started on prednisone this morning, will consider changing basal insulin to NPH tomorrow. PLAN FOR INPATIENT GLYCEMIC CONTROL: * Hold outpatient diabetes medications * Basal insulin * Lantus 19 units SQ this morning (9 units+ 10 additional units once consulted) and then Lantus scale (BSG< 140, hold; BSG 140-200, 7 units; BSG > 200, 15 units) * Bolus insulin * NovoLog per scale ACHS or Q6hrs while NPO * Goal Range: Low 120 mg/dL - High 150 mg/dL * Correction Factor: 15 mg/dL/unit * Nutritional / Prandial insulin per carb ratio of 1 unit per 6 grams CHO consumed
--- NOTE | 2024-09-04 17:16 | Hospitalist Progress Note ---
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 Admitting CXR with no acute finding, BMP WNL, troponin WNL. VBG WNL. Respiratory BioFire positive for influenza A. EKG with NSR. Tamiflu adjusted to renal function, Mucinex, Tessalon Perles, incentive spirometer. Prednisone taper for possible mild exacerbation of asthma, continue to follow with medical response. Gentle IV fluid, 500 mL to p.o. intake improves. PT/OT. tissue transfer and EGD after emergency room pharmacist 09/04 Continue present regimen Continue to wean off oxygen supplement Monitor closely Possible UTI Urine culture: Pending IV ceftriaxone next T2DM: SSI while in hospital. Other chronic medical conditions: CHF, JOYCE, CKD 3b, RLS, PE -- c/w or resume home meds as when able. monitor volume status closely. Pt seems clinically dehydrated at exam. DVT Px: Pt on eliquis Full Code Admission and Anticipated Discharge Date Admission Date: September 03, 2024 Subjective Follow-up for influenza, etc. Seen sitting up in bedside chair, on 2 L of O2 Not in distress, states she is still feels very weak Still having dry cough and some shortness of breath No chest pain No abdominal pain, nausea or vomiting No other new symptoms Review of Systems Review of Systems: all noted and negative except for above Physical Exam Physical Exam: General- oriented x 3, not in distress, speaks in sentences with no effort or accessory muscle use Eyes- anicteric Neck- no JVD Lungs- Mild rhonchi at the bases, no wheezing Heart- normal rate, regular rhythm; no murmurs Abdomen- normal bowel sounds, nondistended, soft, nontender Extremities- no pretibial edema, no calf tenderness Neuro- alert, oriented x 3; no gross focal neurologic deficits Skin- warm & dry Results & Data Results & Data Vital Signs (Past 12 Hours) Vital Signs Temp Pulse Pulse Pulse Resp BP Pulse Ox 09/04/24 16:02 74 09/04/24 14:45 36.5 C 72 16 154/65 H 97 09/04/24 13:06 09/04/24 11:04 36.8 C 73 16 120/73 100 09/04/24 10:21 09/04/24 07:53 58 L 09/04/24 07:42 36.7 C 73 18 114/68 100 09/04/24 05:54 91 H 18 96 Pulse Ox Pulse Ox Pulse Ox O2 Del Method O2 Flow Rate O2 Flow Rate O2 Flow Rate 09/04/24 16:02 09/04/24 14:45 Room Air 09/04/24 13:06 100 100 98 0 2 09/04/24 11:04 Nasal Cannula 2 09/04/24 10:21 Room Air 09/04/24 07:53 09/04/24 07:42 Nasal Cannula 2 09/04/24 05:54 Room Air O2 Flow Rate 09/04/24 16:02 09/04/24 14:45 09/04/24 13:06 0 09/04/24 11:04 09/04/24 10:21 09/04/24 07:53 09/04/24 07:42 09/04/24 05:54 all noted and reviewed including below
[2024-09-04] MEDS: cefTRIAXone SODIUM 2,000 MG/50 ML BAG IV SCH (18:36)
[2024-09-04] MEDS: ACETAMINOPHEN 325 MG TAB PO PRN (18:40)
[2024-09-04 19:04] LABS: BUN Creatinine Ratio 27.5 (10-20); Calcium 8.7 mg/dl (8.6-10.3); Creatinine Clr Calc Pharmacy 35.7 ml/min; Potassium 4.5 mmol/L (3.5-5.1)
[2024-09-04] MEDS: OSELTAMIVIR PHOSPHATE SUSP 30 MG/5 ML UDP PO SCH (20:40)
[2024-09-04] MEDS: DICLOFENAC SOD 1% GEL 100 GM TUBE EXT SCH (20:43)
[2024-09-04] MEDS: LANTUS PER UNIT CHARGE SC SCH (20:44)
[2024-09-05] MEDS: guaiFENesin/CODEINE 100MG/10MG 5ML UDC PO STA ×2 (00:17→23:37)
--- NOTE | 2024-09-05 05:53 | Electrocardiogram Report ---
Test Reason : Blood Pressure : */* mmHG Vent. Rate : 78 BPM Atrial Rate : 78 BPM P-R Int : 178 ms QRS Dur : 72 ms QT Int : 382 ms P-R-T Axes : 26 28 18 degrees QTcB Int : 435 ms Normal sinus rhythm Cannot rule out Anterior infarct , age undetermined Abnormal ECG When compared with ECG of 02-Jul-2024 10:42, Questionable change in QRS axis Confirmed by Kong Armstrong ([id number]) on 09/05/2024 5:52:41 AM Referred By: Confirmed By: Kong Armstrong
[2024-09-05] MEDS: LANTUS PER UNIT CHARGE SC SCH ×2 (09:37→21:32)
--- NOTE | 2024-09-05 10:11 | Pharmacy Report ---
Pharmacy Glycemic Short Note 2 - Date of Service September 05, 2024 - Glycemic Short BSG Results (Last 24 hours): 09/04/24 09/04/24 09/04/24 11:34 11:35 11:36 Glucose POC Glucose 333 H* 341 H* 341 H* 09/04/24 09/04/24 09/04/24 16:39 18:24 20:34 Glucose 245 H POC Glucose 279 H 230 H 09/05/24 08:28 Glucose POC Glucose 95 OUTPATIENT ANTIDIABETIC REGIMEN: * Jardiance 10mg po QAM * Glargine 22 units SQ qAM (unclear if pt is still taking) * Novolog 5 units SQ BID (unclear if pt is still taking) HbA1c 7.6% on 09/04/24 ASSESSMENT: 09/05: * Saida received 74 units of insulin yesterday, 34 of which were basal. BSGs were: 813-571-850-230 mg/dL. * Fasting BSG dropped to 95 mg/dL this AM. Patient is tolerating a T2DM diet and remains on Ceftriaxone, Tamiflu and Prednisone 40 mg daily. * Given significant drop in fasting BSG this AM, will decrease basal by ~40-50% today. Gave 10 units this AM and will scale a PM dose depending on BSG. * Did tighten carb ratio slightly this morning. 09/04: * 64 year old female admitted 09/04 for SOB/influenza A/possible asthma exacerbation. Pharmacy has been consulted for glycemic management while she is admitted as she is a type 2 diabetic who has been started on steroids. * BSGs from last evening were 179 and 251mg/dL. Lantus 9 units SQ bid was started as was a conservative sliding scale insulin regimen. * A total of 12 units of insulin were given yesterday (9 were basal and 3 were bolus). * Fasting BSG was 245mg/dL and lunch was 333mg/dL. She already received 9 units of Lantus this morning, so an additional 10 units of Lantus were ordered. A Lantus scale was also added for this evening (0,7, or 15 units). Bolus insulin parameters were tightened to a weight based stress of 3. * Since patient was started on prednisone this morning, will consider changing basal insulin to NPH tomorrow. PLAN FOR INPATIENT GLYCEMIC CONTROL: * Hold outpatient oral diabetes medications * Basal insulin * Lantus 10 units SC daily * Lantus 0-10 unit SC HS (see eMAR for more details) * Bolus insulin * NovoLog per scale ACHS or Q6hrs while NPO * Goal Range: Low 120 mg/dL - High 150 mg/dL * Correction Factor: 15 mg/dL/unit * Nutritional / Prandial insulin per carb ratio of 1 unit per 5 grams CHO consumed
[2024-09-05] MEDS: SODIUM CHLOR 7% 4 ML NEB NEB SCH (11:20)
[2024-09-05] MEDS: ADVANCED PROBIOTIC 625 MG CAPSULE PO SCH (12:50)
--- NOTE | 2024-09-05 17:23 | Hospitalist Progress Note ---
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 Admitting CXR with no acute finding, BMP WNL, troponin WNL. VBG WNL. Respiratory BioFire positive for influenza A. EKG with NSR. Tamiflu adjusted to renal function, Mucinex, Tessalon Perles, incentive spirometer. Prednisone taper for possible mild exacerbation of asthma, continue to follow with medical response. Gentle IV fluid, 500 mL to p.o. intake improves. PT/OT. tissue transfer and EGD after emergency room pharmacist 09/04 Continue present regimen Continue to wean off oxygen supplement Monitor closely 09/05 Continues to improve Continue prednisone, Tamiflu, nebs, etc. Possible UTI Urine culture: Pending IV ceftriaxone T2DM: SSI while in hospital. Other chronic medical conditions: CHF, JOYCE, CKD 3b, RLS, PE -- c/w or resume home meds as when able. monitor volume status closely. Pt seems clinically dehydrated at exam. DVT Px: Pt on eliquis Full Code Admission and Anticipated Discharge Date Admission Date: September 03, 2024 Subjective Follow-up for flu, UTI, etc. Seen resting in bed side, comfortable, not in distress States she feels improved today although still having persistent coughing No abdominal pain, problems with urinary symptoms Review of Systems Review of Systems: all noted and negative except for above Physical Exam Physical Exam: General- oriented x 3, not in distress, speaks in sentences with no effort or accessory muscle use Eyes- anicteric Neck- no JVD Lungs-No crackles or wheezing very faint rhonchi at the bases, no wheezing Heart- normal rate, regular rhythm; no murmurs Abdomen- normal bowel sounds, nondistended, soft, nontender Extremities- no pretibial edema, no calf tenderness Neuro- alert, oriented x 3; no gross focal neurologic deficits Skin- warm & dry Results & Data Results & Data Vital Signs (Past 12 Hours) Vital Signs Temp Pulse Pulse Pulse Resp BP Pulse Ox 09/05/24 14:57 36.5 C 69 18 138/84 99 09/05/24 11:38 36.7 C 66 18 122/81 96 09/05/24 11:23 78 18 95 09/05/24 11:16 09/05/24 07:42 36.6 C 57 L 18 127/78 97 09/05/24 07:08 57 L O2 Del Method 09/05/24 14:57 Room Air 09/05/24 11:38 Room Air 09/05/24 11:23 Room Air 09/05/24 11:16 Room Air 09/05/24 07:42 Room Air 09/05/24 07:08 all noted and reviewed including below
[2024-09-05] MEDS: ONDANSETRON INJ 2 MG/ML 2 ML VIAL IV PRN (23:20)
[2024-09-06 10:06] LABS: BUN Creatinine Ratio 26.6 (10-20); Calcium 8.7 mg/dl (8.6-10.3); Creatinine Clr Calc Pharmacy 43.1 ml/min; Magnesium 2.2 mg/dl (1.7-2.4)
[2024-09-06 10:31] LABS: Folate (Folic Acid),Ser orPlas > 22.30 ng/ml (>5.38)
[2024-09-06 10:32] LABS: Vitamin B12 1085 pg/ml (180-914)
--- NOTE | 2024-09-06 13:34 | Hospitalist Progress Note ---
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 Admitting CXR with no acute finding, BMP WNL, troponin WNL. VBG WNL. Respiratory BioFire positive for influenza A. EKG with NSR. Tamiflu adjusted to renal function, Mucinex, Tessalon Perles, incentive spirometer. Prednisone taper for possible mild exacerbation of asthma, continue to follow with medical response. 09/06 Gradually improving Decrease prednisone from 40 mg to 20 mg daily x 2 days, then stop Finish Tamiflu course, Mucinex PT OT recommending to transition to acute Mild pancytopenia Possibly from viral illness CBC today pending Peripheral smear ordered UTI Ruled out Urine culture: Negative DC IV ceftriaxone T2DM: SSI while in hospital. Other chronic medical conditions: CHF, JOYCE, CKD 3b, RLS, PE -- c/w or resume home meds as when able. monitor volume status closely. Pt seems clinically dehydrated On admission. DVT Px: Pt on eliquis Full Code Disposition Transition to acute rehab In 1 to 2 days Admission and Anticipated Discharge Date Admission Date: September 03, 2024 Subjective Follow-up for weakness, influenza, etc. Seen resting in bedside chair, comfortable, not in distress States she still feels weak Still having some coughing spells but improving No shortness of breath, chest pain No urinary symptoms No other new symptoms Review of Systems Review of Systems: all noted and negative except for above Physical Exam Physical Exam: General- oriented x 3, not in distress, speaks in sentences with no effort or accessory muscle use Eyes- anicteric Neck- no JVD Lungs- clear breath sounds bilaterally, no rales/wheezes Heart- normal rate, regular rhythm; no murmurs Abdomen- normal bowel sounds, nondistended, soft, nontender Extremities- no pretibial edema, no calf tenderness Neuro- alert, oriented x 3; no gross focal neurologic deficits Skin- warm & dry Results & Data Results & Data Vital Signs (Past 12 Hours) Vital Signs Temp Pulse Pulse Resp BP BP Pulse Ox 09/06/24 11:12 36.6 C 67 18 126/81 99 09/06/24 10:05 09/06/24 07:45 36.3 C L 56 L 18 133/80 97 09/06/24 07:12 52 L 09/06/24 07:11 57 L 18 97 09/06/24 03:48 36.5 C 57 L 18 124/78 95 O2 Del Method 09/06/24 11:12 Room Air 09/06/24 10:05 Room Air 09/06/24 07:45 Room Air 09/06/24 07:12 09/06/24 07:11 Room Air 09/06/24 03:48 Room Air all noted and reviewed including below
[2024-09-06 15:09] LABS: Hematocrit (blood only) 28.8 % (37.0-47.0); Immature Granulocytes # (auto) 0.02 K/uL (0.01-0.20); Immature Granulocytes % (auto) 0.5 %; Lymphocytes # (auto) 0.61 K/uL (1.20-3.40); Lymphocytes % (auto) 15.8 %; Mean Corpuscular Hemoglobin 30.6 pg (25.0-34.0); Mean Corpuscular Hgb Conc 34.7 g/dL (32.0-36.0); Mean Corpuscular Volume 88.1 fL (80.0-100.0); Mean Platelet Volume 9.8 fL (9.4-12.4); Monocytes # (auto) 0.13 K/uL (0.11-0.59); Monocytes % (auto) 3.4 %; Neutrophils # (auto) 3.11 K/uL (1.40-6.50); Neutrophils % (auto) 80.3 %; Platelet Count 116 K/uL (130-400); RDW Coefficient of Variation 13.7 % (11.5-14.5); RDW Standard Deviation 43.8 fL (36.4-46.3); Red Blood Count 3.27 M/uL (4.20-5.40); White Blood Count 3.87 K/ul (4.8-10.8)
[2024-09-06] MEDS: BENZONATATE 100 MG CAPSULE PO PRN (18:02)
[2024-09-06] MEDS: traMADol HCL 50 MG TABLET PO PRN (20:59)
[2024-09-07] MEDS: predniSONE 20 MG TAB PO SCH (08:20)
[2024-09-07 08:36] LABS: Hematocrit (blood only) 27.6 % (37.0-47.0); Hemoglobin 9.5 g/dl (12.0-16.0); Mean Corpuscular Hemoglobin 30.4 pg (25.0-34.0); Mean Corpuscular Hgb Conc 34.4 g/dL (32.0-36.0); Mean Corpuscular Volume 88.2 fL (80.0-100.0); Mean Platelet Volume 9.4 fL (9.4-12.4); Platelet Count 101 K/uL (130-400); RDW Coefficient of Variation 13.7 % (11.5-14.5); RDW Standard Deviation 43.1 fL (36.4-46.3); Red Blood Count 3.13 M/uL (4.20-5.40); White Blood Count 3.79 K/ul (4.8-10.8)
[2024-09-07 08:55] LABS: BUN Creatinine Ratio 26.1 (10-20); Calcium 8.4 mg/dl (8.6-10.3); Creatinine Clr Calc Pharmacy 44.8 ml/min; Magnesium 2.3 mg/dl (1.7-2.4); Potassium 4.1 mmol/L (3.5-5.1)
[2024-09-07] MEDS: FUROSEMIDE 80 MG TAB PO SCH (08:57)
[2024-09-07] MEDS: SPIRONOLACTONE 25 MG TAB PO SCH (08:57)
[2024-09-07 09:11] LABS: Basophils # (auto) 0.01 K/uL (0.00-0.20); Basophils % (auto) 0.3 %; Immature Granulocytes # (auto) 0.03 K/uL (0.01-0.20); Immature Granulocytes % (auto) 0.8 %; Lymphocytes # (auto) 0.73 K/uL (1.20-3.40); Lymphocytes % (auto) 19.3 %; Monocytes # (auto) 0.27 K/uL (0.11-0.59); Monocytes % (auto) 7.1 %; Neutrophils # (auto) 2.75 K/uL (1.40-6.50); Neutrophils % (auto) 72.5 %
[2024-09-07] MEDS: LANTUS PER UNIT CHARGE SC ONE (12:49)
[2024-09-07] MEDS: DOCUSATE SODIUM 100 MG CAP PO PRN (13:00)
--- NOTE | 2024-09-07 13:16 | Hospitalist Progress Note ---
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 Admitting CXR with no acute finding, BMP WNL, troponin WNL. VBG WNL. Respiratory BioFire positive for influenza A. EKG with NSR. Tamiflu adjusted to renal function, Mucinex, Tessalon Perles, incentive spirometer. Prednisone taper for possible mild exacerbation of asthma, continue to follow with medical response. PT OT recommending to transition to acute Mild pancytopenia Possibly from viral illness monitor UTI Ruled out Urine culture: Negative DC IV ceftriaxone T2DM: SSI while in hospital. Other chronic medical conditions: CHFcontinue on Lasix, spironolactone CKD 3Bcreatinine at baseline History of PEcontinue on Eliquis Hyperlipidemia continue on rosuvastatin Restless leg syndromecontinue on ropinirole DVT Px: Pt on eliquis Full Code Disposition Patient is stable for transfer to rehab Please note the above document was generated using voice recognition software. It may contain grammatical, syntax or spelling errors. Any formal questions or concerns about the content, text or information contained within the body of this dictation should be directly addressed to the provider for clarification Admission and Anticipated Discharge Date Admission Date: September 03, 2024 Subjective Patient seen and examined at bedside. Comfortable; not in distress. Denies fever, chills, chest pain, shortness of breath, abdominal pain or urinary symptoms. No significant overnight events Continues to report generalized weakness Review of Systems Review of Systems: All systems reviewed & are unremarkable except as noted in Subjective Physical Exam Physical Exam: Constitutional: WD/WN, vitals as above, NAD, sitting up in bed, pleasant, conversing easily Respiratory: normal respiratory effort, lungs clear to auscultation, no wheeze, rales, rhonchi. Normal insp/exp effort, no accessory muscle use Cardiovascular: RRR, no murmur, no edema Vessels: no JVD or carotid bruit Chest: normal inspection of chest Abdomen: normal bowel sounds, soft, nontender, no hepatosplenomegaly Musculoskeletal: no cyanosis or clubbing, extremities motor strength 5/5 Skin: no rashes, warm and dry normal turgor Neurologic: PERRL, EOMI, accommodation nl, no face palsy, no dysarthria CN's II- XI intact bilaterally and moves all extremities Psychiatric: A+Ox3, euthymic affect Results & Data Results & Data Vital Signs (Past 12 Hours) Vital Signs Temp Pulse Pulse Resp BP Pulse Ox O2 Del Method 09/07/24 11:04 36.8 C 64 16 130/74 96 Room Air 09/07/24 08:26 Room Air 09/07/24 07:32 36.5 C 55 L 18 145/77 H 99 Room Air 09/07/24 07:11 62 09/07/24 07:05 53 L 18 97 Room Air 09/07/24 04:34 62 09/07/24 02:27 36.8 C 54 L 18 133/84 97 Room Air
--- NOTE | 2024-09-08 08:50 | Hospitalist Progress Note ---
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 Admitting CXR with no acute finding, BMP WNL, troponin WNL. VBG WNL. Respiratory BioFire positive for influenza A. EKG with NSR. Tamiflu adjusted to renal function, Mucinex, Tessalon Perles, incentive spirometer. Prednisone taper for possible mild exacerbation of asthma, PT OT recommending to transition to acute. Patient to be transferred on Wednesday to rehab Mild pancytopenia Possibly from viral illness monitor UTI Ruled out Urine culture: Negative DC IV ceftriaxone T2DM: SSI while in hospital. Other chronic medical conditions: CHFcontinue on Lasix, spironolactone CKD 3Bcreatinine at baseline History of PEcontinue on Eliquis Hyperlipidemia continue on rosuvastatin Restless leg syndromecontinue on ropinirole DVT Px: Pt on eliquis Full Code Disposition Patient is stable for transfer to rehab. possible dc on wednesday. Please note the above document was generated using voice recognition software. It may contain grammatical, syntax or spelling errors. Any formal questions or concerns about the content, text or information contained within the body of this dictation should be directly addressed to the provider for clarification Admission and Anticipated Discharge Date Admission Date: September 03, 2024 Subjective Patient seen and examined at bedside. Comfortable; not in distress. Denies fever, chills, chest pain, shortness of breath, abdominal pain or urinary symptoms. No significant overnight events Review of Systems Review of Systems: All systems reviewed & are unremarkable except as noted in Subjective Physical Exam Physical Exam: Constitutional: WD/WN, vitals as above, NAD, sitting up in bed, pleasant, conversing easily Respiratory: normal respiratory effort, lungs clear to auscultation, no wheeze, rales, rhonchi. Normal insp/exp effort, no accessory muscle use Cardiovascular: RRR, no murmur, no edema Vessels: no JVD or carotid bruit Chest: normal inspection of chest Abdomen: normal bowel sounds, soft, nontender, no hepatosplenomegaly Musculoskeletal: no cyanosis or clubbing, extremities motor strength 5/5 Skin: no rashes, warm and dry normal turgor Neurologic: PERRL, EOMI, accommodation nl, no face palsy, no dysarthria CN's II- XI intact bilaterally and moves all extremities Psychiatric: A+Ox3, euthymic affect Results & Data Results & Data Vital Signs (Past 12 Hours) Vital Signs Temp Pulse Pulse Resp BP Pulse Ox O2 Del Method 09/08/24 07:36 36.8 C 65 16 168/84 H 98 Room Air 09/08/24 07:25 79 18 97 Room Air 09/08/24 06:54 54 L 09/08/24 03:21 36.5 C 57 L 18 145/86 H 98 Room Air 09/08/24 01:06 58 L 09/07/24 22:18 36.6 C 60 18 127/82 97 Room Air 09/07/24 21:00 Room Air
--- NOTE | 2024-09-08 09:50 | Pharmacy Report ---
Pharmacy Glycemic Short Note 2 - Date of Service September 08, 2024 - Glycemic Short BSG Results (Last 24 hours): 09/07/24 09/07/24 09/07/24 12:23 17:19 19:51 POC Glucose 216 H 195 H 177 H 09/08/24 08:07 POC Glucose 89 OUTPATIENT ANTIDIABETIC REGIMEN: * Jardiance 10mg po QAM * Glargine 22 units SQ qAM (unclear if pt is still taking) * Novolog 5 units SQ BID (unclear if pt is still taking) HbA1c 7.6% on 09/04/24 ASSESSMENT: 09/08 * Patient received a total of 47 units of insulin yesterday (8 units were basal and 39 units were bolus). * AM fasting BSGs the last 4 days have been significantly lower than the rest of the day (27-21-88-89mg/dL). I thought that this may be due to her receiving HS basal insulin, so the HS Lantus scale was d/c yesterday and she was given 8 units Lantus SC x 1 yesterday afternoon. * BSG was still only 89mg/dL this morning so I loosened the bolus insulin parameters just with the HS dose and Lantus dose was shifted to QAM. 09/05: * Saida received 74 units of insulin yesterday, 34 of which were basal. BSGs were: 588-444-734-230 mg/dL. * Fasting BSG dropped to 95 mg/dL this AM. Patient is tolerating a T2DM diet and remains on Ceftriaxone, Tamiflu and Prednisone 40 mg daily. * Given significant drop in fasting BSG this AM, will decrease basal by ~40-50% today. Gave 10 units this AM and will scale a PM dose depending on BSG. * Did tighten carb ratio slightly this morning. 09/04: * 64 year old female admitted 09/04 for SOB/influenza A/possible asthma exacerbation. Pharmacy has been consulted for glycemic management while she is admitted as she is a type 2 diabetic who has been started on steroids. * BSGs from last evening were 179 and 251mg/dL. Lantus 9 units SQ bid was started as was a conservative sliding scale insulin regimen. * A total of 12 units of insulin were given yesterday (9 were basal and 3 were bolus). * Fasting BSG was 245mg/dL and lunch was 333mg/dL. She already received 9 units of Lantus this morning, so an additional 10 units of Lantus were ordered. A Lantus scale was also added for this evening (0,7, or 15 units). Bolus insulin parameters were tightened to a weight based stress of 3. * Since patient was started on prednisone this morning, will consider changing basal insulin to NPH tomorrow. PLAN FOR INPATIENT GLYCEMIC CONTROL: * Hold outpatient diabetes medications * Basal insulin * Lantus 10 units SC QAM * Bolus insulin * NovoLog per scale ACHS or Q6hrs while NPO * Goal Range: Low 120 mg/dL - High 140 mg/dL * Breakfast, lunch, dinner: -Correction Factor: 15 mg/dL/unit -Nutritional / Prandial insulin per carb ratio of 1 unit per 5 grams CHO consumed * HS: -Correction Factor: 45 mg/dL/unit -Nutritional / Prandial insulin per carb ratio of 1 unit per 15 grams CHO consumed
[2024-09-08] MEDS: LANTUS PER UNIT CHARGE SC SCH (09:57)
[2024-09-08] MEDS: INSULIN ASPART PER UNIT CHARGE SC SCH ×2 (12:51→21:03)
[2024-09-08 13:14] LABS: Basophils # (auto) 0.02 K/uL (0.00-0.20); Basophils % (auto) 0.3 %; Eosinophils # (auto) 0.01 K/uL (0.00-0.50); Eosinophils % (auto) 0.2 %; Hematocrit (blood only) 30.2 % (37.0-47.0); Hemoglobin 10.3 g/dl (12.0-16.0); Immature Granulocytes # (auto) 0.07 K/uL (0.01-0.20); Immature Granulocytes % (auto) 1.1 %; Lymphocytes # (auto) 0.75 K/uL (1.20-3.40); Lymphocytes % (auto) 12.2 %; Mean Corpuscular Hgb Conc 34.1 g/dL (32.0-36.0); Mean Platelet Volume 9.5 fL (9.4-12.4); Monocytes # (auto) 0.35 K/uL (0.11-0.59); Monocytes % (auto) 5.7 %; Neutrophils # (auto) 4.94 K/uL (1.40-6.50); Neutrophils % (auto) 80.5 %; Platelet Count 128 K/uL (130-400); RDW Coefficient of Variation 13.8 % (11.5-14.5); RDW Standard Deviation 44.3 fL (36.4-46.3); Red Blood Count 3.43 M/uL (4.20-5.40); White Blood Count 6.14 K/ul (4.8-10.8)
[2024-09-08 13:27] LABS: BUN Creatinine Ratio 25.6 (10-20); Calcium 8.5 mg/dl (8.6-10.3); Creatinine Clr Calc Pharmacy 39.9 ml/min; Potassium 3.9 mmol/L (3.5-5.1)
[2024-09-09 06:57] LABS: Basophils # (auto) 0.02 K/uL (0.00-0.20); Basophils % (auto) 0.4 %; Eosinophils # (auto) 0.02 K/uL (0.00-0.50); Eosinophils % (auto) 0.4 %; Hematocrit (blood only) 30.6 % (37.0-47.0); Hemoglobin 10.4 g/dl (12.0-16.0); Immature Granulocytes % (auto) 1.9 %; Lymphocytes # (auto) 1.03 K/uL (1.20-3.40); Lymphocytes % (auto) 19.5 %; Mean Corpuscular Hemoglobin 29.9 pg (25.0-34.0); Mean Corpuscular Volume 87.9 fL (80.0-100.0); Mean Platelet Volume 9.4 fL (9.4-12.4); Monocytes # (auto) 0.38 K/uL (0.11-0.59); Monocytes % (auto) 7.2 %; Neutrophils # (auto) 3.74 K/uL (1.40-6.50); Neutrophils % (auto) 70.6 %; Platelet Count 124 K/uL (130-400); RDW Coefficient of Variation 13.8 % (11.5-14.5); Red Blood Count 3.48 M/uL (4.20-5.40); White Blood Count 5.29 K/ul (4.8-10.8)
[2024-09-09 07:25] LABS: Calcium 8.5 mg/dl (8.6-10.3); Creatinine Clr Calc Pharmacy 38.9 ml/min; Potassium 3.8 mmol/L (3.5-5.1)
--- NOTE | 2024-09-09 11:59 | Hospitalist Progress Note ---
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 Admitting CXR with no acute finding, BMP WNL, troponin WNL. VBG WNL. Respiratory BioFire positive for influenza A. EKG with NSR. s/p Tamiflu course s/p prednisone taper PT OT recommending to transition to acute. Patient to be transferred on Wednesday to rehab Mild pancytopenia Possibly from viral illness monitor UTI Ruled out Urine culture: Negative DC IV ceftriaxone T2DM: SSI while in hospital. Other chronic medical conditions: CHFcontinue on Lasix, spironolactone CKD 3Bcreatinine at baseline History of PEcontinue on Eliquis Hyperlipidemia continue on rosuvastatin Restless leg syndromecontinue on ropinirole DVT Px: Pt on eliquis Full Code Disposition Patient is stable for transfer to rehab. possible dc on wednesday. Please note the above document was generated using voice recognition software. It may contain grammatical, syntax or spelling errors. Any formal questions or concerns about the content, text or information contained within the body of this dictation should be directly addressed to the provider for clarification Admission and Anticipated Discharge Date Admission Date: September 03, 2024 Subjective Patient reports significant improvement in strength and weakness. Vital signs are stable and she is saturating well on room air Review of Systems Review of Systems: All systems reviewed & are unremarkable except as noted in Subjective Physical Exam Physical Exam: Constitutional: WD/WN, vitals as above, NAD, sitting up in bed, pleasant, conversing easily Respiratory: normal respiratory effort, lungs clear to auscultation, no wheeze, rales, rhonchi. Normal insp/exp effort, no accessory muscle use Cardiovascular: RRR, no murmur, no edema Vessels: no JVD or carotid bruit Chest: normal inspection of chest Abdomen: normal bowel sounds, soft, nontender, no hepatosplenomegaly Musculoskeletal: no cyanosis or clubbing, extremities motor strength 5/5 Skin: no rashes, warm and dry normal turgor Neurologic: PERRL, EOMI, accommodation nl, no face palsy, no dysarthria CN's II- XI intact bilaterally and moves all extremities Psychiatric: A+Ox3, euthymic affect Results & Data Results & Data Vital Signs (Past 12 Hours) Vital Signs Temp Pulse Pulse Resp BP BP Pulse Ox 09/09/24 11:25 36.8 C 81 18 129/81 98 09/09/24 10:19 09/09/24 07:52 36.6 C 60 18 145/82 H 96 09/09/24 07:24 72 18 98 09/09/24 07:00 64 09/09/24 03:57 36.6 C 59 L 18 121/76 98 09/09/24 00:24 36.6 C 59 L 20 122/77 98 O2 Del Method 09/09/24 11:25 Room Air 09/09/24 10:19 Room Air 09/09/24 07:52 Room Air 09/09/24 07:24 Room Air 09/09/24 07:00 09/09/24 03:57 Room Air 09/09/24 00:24 Room Air
[2024-09-10 09:12] LABS: BUN Creatinine Ratio 28.3 (10-20); Calcium 8.6 mg/dl (8.6-10.3); Creatinine Clr Calc Pharmacy 40.8 ml/min; Potassium 4.3 mmol/L (3.5-5.1)
--- NOTE | 2024-09-10 12:31 | Hospitalist Progress Note ---
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 Admitting CXR with no acute finding, BMP WNL, troponin WNL. VBG WNL. Respiratory BioFire positive for influenza A. EKG with NSR. s/p Tamiflu course s/p prednisone taper PT OT recommending to transition to acute. Patient to be transferred on Wednesday to rehab Mild pancytopenia Possibly from viral illness monitor UTI Ruled out Urine culture: Negative DC IV ceftriaxone T2DM: SSI while in hospital. Other chronic medical conditions: CHFcontinue on Lasix, spironolactone CKD 3Bcreatinine at baseline History of PEcontinue on Eliquis Hyperlipidemia continue on rosuvastatin Restless leg syndromecontinue on ropinirole DVT Px: Pt on eliquis Full Code Disposition Patient is stable for transfer to rehab. possible dc on wednesday. Please note the above document was generated using voice recognition software. It may contain grammatical, syntax or spelling errors. Any formal questions or concerns about the content, text or information contained within the body of this dictation should be directly addressed to the provider for clarification Admission and Anticipated Discharge Date Admission Date: September 03, 2024 Subjective Patient seen and examined at bedside. Comfortable; not in distress. Denies fever, chills, chest pain, shortness of breath, abdominal pain or urinary symptoms. No significant overnight events Review of Systems Review of Systems: All systems reviewed & are unremarkable except as noted in Subjective Physical Exam Physical Exam: Constitutional: WD/WN, vitals as above, NAD, sitting up in bed, pleasant, conversing easily Respiratory: normal respiratory effort, lungs clear to auscultation, no wheeze, rales, rhonchi. Normal insp/exp effort, no accessory muscle use Cardiovascular: RRR, no murmur, no edema Vessels: no JVD or carotid bruit Chest: normal inspection of chest Abdomen: normal bowel sounds, soft, nontender, no hepatosplenomegaly Musculoskeletal: no cyanosis or clubbing, extremities motor strength 5/5 Skin: no rashes, warm and dry normal turgor Neurologic: PERRL, EOMI, accommodation nl, no face palsy, no dysarthria CN's II- XI intact bilaterally and moves all extremities Psychiatric: A+Ox3, euthymic affect Results & Data Results & Data Vital Signs (Past 12 Hours) Vital Signs Temp Pulse Pulse Resp BP Pulse Ox O2 Del Method 09/10/24 11:35 37.0 C 85 18 120/74 97 Room Air 09/10/24 10:00 Room Air 09/10/24 08:44 36.8 C 70 20 118/78 95 Room Air 09/10/24 04:45 36.5 C 60 20 103/68 97 Room Air 09/10/24 00:51 Room Air 09/10/24 00:45 66 09/10/24 00:38 36.5 C 69 20 117/75 98 Room Air
[2024-09-11 06:37] LABS: BUN Creatinine Ratio 22.2 (10-20); Calcium 8.6 mg/dl (8.6-10.3); Creatinine Clr Calc Pharmacy 33.9 ml/min; Potassium 4.1 mmol/L (3.5-5.1)
[2024-09-11] MEDS: POLYETHYLENE (MIRALAX) 17 GM PACK PO PRN (08:44)
--- NOTE | 2024-09-11 10:54 | Pharmacy Report ---
Pharmacy Glycemic Short Note 2 - Date of Service September 11, 2024 - Glycemic Short BSG Results (Last 24 hours): 09/10/24 09/10/24 09/10/24 12:03 17:00 20:08 Glucose POC Glucose 201 H 95 106 H 09/11/24 09/11/24 05:37 08:04 Glucose 101 H POC Glucose 108 H OUTPATIENT ANTIDIABETIC REGIMEN: * Jardiance 10mg po QAM * Glargine 22 units SQ qAM (unclear if pt is still taking) * Novolog 5 units SQ BID (unclear if pt is still taking) HbA1c 7.6% on 09/04/24 ASSESSMENT: 09/11: * Patient received 22 units of insulin yesterday, all of which were correctional, no basal * Fasting BSG 101 mg/dL - reasonable to continue to hold basal for now * Dinner time BSGs trending down yesterday, may loosen parameters slightly at lunch today 09/08 * Patient received a total of 47 units of insulin yesterday (8 units were basal and 39 units were bolus). * AM fasting BSGs the last 4 days have been significantly lower than the rest of the day (45-56-35-89mg/dL). I thought that this may be due to her receiving H S basal insulin, so the HS Lantus scale was d/c yesterday and she was given 8 units Lantus SC x 1 yesterday afternoon. * BSG was still only 89mg/dL this morning so I loosened the bolus insulin parameters just with the HS dose and Lantus dose was shifted to QAM. 09/05: * Saida received 74 units of insulin yesterday, 34 of which were basal. BSGs were: 041-255-001-230 mg/dL. * Fasting BSG dropped to 95 mg/dL this AM. Patient is tolerating a T2DM diet and remains on Ceftriaxone, Tamiflu and Prednisone 40 mg daily. * Given significant drop in fasting BSG this AM, will decrease basal by ~40-50% today. Gave 10 units this AM and will scale a PM dose depending on BSG. * Did tighten carb ratio slightly this morning. 09/04: * 64 year old female admitted 09/04 for SOB/influenza A/possible asthma exacerba tion. Pharmacy has been consulted for glycemic management while she is admitted as she is a type 2 diabetic who has been started on steroids. * BSGs from last evening were 179 and 251mg/dL. Lantus 9 units SQ bid was started as was a conservative sliding scale insulin regimen. * A total of 12 units of insulin were given yesterday (9 were basal and 3 were bolus). * Fasting BSG was 245mg/dL and lunch was 333mg/dL. She already received 9 units of Lantus this morning, so an additional 10 units of Lantus were ordered. A Lantus scale was also added for this evening (0,7, or 15 units). Bolus insulin parameters were tightened to a weight based stress of 3. * Since patient was started on prednisone this morning, will consider changing basal insulin to NPH tomorrow. PLAN FOR INPATIENT GLYCEMIC CONTROL: * Hold outpatient diabetes medications * Basal insulin * Lantus - hold * Bolus insulin * NovoLog per scale ACHS or Q6hrs while NPO * Goal Range: Low 120 mg/dL - High 140 mg/dL * Breakfast, lunch, dinner: -Correction Factor: 30 mg/dL/unit -Nutritional / Prandial insulin per carb ratio of 1 unit per 8 grams CHO consumed * HS: -Correction Factor: 60 mg/dL/unit -Nutritional / Prandial insulin per carb ratio of 1 unit per 25 grams CHO consumed
--- NOTE | 2024-09-11 13:42 | Hospitalist Progress Note ---
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 Admitting CXR with no acute finding, BMP WNL, troponin WNL. VBG WNL. Respiratory BioFire positive for influenza A. EKG with NSR. s/p Tamiflu course s/p prednisone taper PT OT recommended rehab; Called for peer to peer; awaiting callback Mild pancytopenia Possibly from viral illness monitor UTI Ruled out Urine culture: Negative DC IV ceftriaxone T2DM: SSI while in hospital. Other chronic medical conditions: CHFcontinue on Lasix, spironolactone CKD 3Bcreatinine at baseline History of PEcontinue on Eliquis Hyperlipidemia continue on rosuvastatin Restless leg syndromecontinue on ropinirole DVT Px: Pt on eliquis Full Code Disposition Patient is stable for transfer to rehab. Called for peer to peer; awaiting callback Please note the above document was generated using voice recognition software. It may contain grammatical, syntax or spelling errors. Any formal questions or concerns about the content, text or information contained within the body of this dictation should be directly addressed to the provider for clarification Admission and Anticipated Discharge Date Admission Date: September 03, 2024 Subjective Patient seen and examined at bedside. Comfortable; not in distress. Denies fever, chills, chest pain, shortness of breath, abdominal pain or urinary symptoms. No significant overnight events Reports constipation Review of Systems Review of Systems: All systems reviewed & are unremarkable except as noted in Subjective Physical Exam Physical Exam: Constitutional: WD/WN, vitals as above, NAD, sitting up in bed, pleasant, conversing easily Respiratory: normal respiratory effort, lungs clear to auscultation, no wheeze, rales, rhonchi. Normal insp/exp effort, no accessory muscle use Cardiovascular: RRR, no murmur, no edema Vessels: no JVD or carotid bruit Chest: normal inspection of chest Abdomen: normal bowel sounds, soft, nontender, no hepatosplenomegaly Musculoskeletal: no cyanosis or clubbing, extremities motor strength 5/5 Skin: no rashes, warm and dry normal turgor Neurologic: PERRL, EOMI, accommodation nl, no face palsy, no dysarthria CN's II- XI intact bilaterally and moves all extremities Psychiatric: A+Ox3, euthymic affect Results & Data Results & Data Vital Signs (Past 12 Hours) Vital Signs Temp Pulse Pulse Resp BP Pulse Ox O2 Del Method 09/11/24 11:16 36.8 C 87 16 117/77 97 Room Air 09/11/24 10:51 Room Air 09/11/24 07:44 36.5 C 79 16 113/68 96 Room Air 09/11/24 07:30 72 09/11/24 06:15 71 18 98 Room Air 09/11/24 02:59 36.6 C 69 18 108/66 98 Room Air
[2024-09-11] MEDS: bisacodyL 10 MG SUPP PR STA (15:02)
[2024-09-11] MEDS: POLYETHYLENE (MIRALAX) 17 GM PACK PO SCH (15:02)
[2024-09-12 07:18] VITALS: BP 127/78; RESP 20; TEMP 97.9; O2SAT 98
--- NOTE | 2024-09-12 11:00 | Discharge Summary ---
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 Of note, patient had COVID about 3 weeks ago, which she reports her cough has improved until 2 to 3 days ago when it started again and is becoming worse. She is feeling hard to breathe as well. She is feeling very weak and has not eaten since last 2 to 3 days. Patient reports some nausea, denies vomiting. Patient reports that her elderly mother has to help around her home due to this acute illness. This is affecting her activities of daily living and she is not able to take care of self at home and hence she presented to the ED. Patient reports dry cough since 2 days, some sore throat, some nausea, diarrhea about 3 days ago and no bowel movement since then. Patient denies fever/chest pain/vomiting/belly pain/pain or burning while passing urine. Patient reports feeling weak and is unable to take care of the self. Patient denies smoking/alcohol/recreational drug use. Medications reviewed with the patient at bedside. Full code Plan of care discussed with the patient in detail at bedside. Admission Exam Per Admitting Provider GENERAL: Alert and oriented x3. NAD, on RA. Appears ill/frail/weak. HEENT: No pallor, no icterus. Pupils equal, round and reactive to light. Oral mucosa moist. mildly congested/erythematous throat. NECK: No JVD, no neck masses. HEART: S1 and S2 heard. Regular rate and rhythm. No murmur, no gallop. RESPIRATORY SYSTEM: Normal AP diameter. No accessory muscle use. No wheezing, no crackles. ABDOMEN: Soft, bowel sounds present, nontender, no distention. CENTRAL NERVOUS SYSTEM: No facial droop. Speech is clear. Obeys simple commands. Moves extremities. EXTREMITIES: No edema, no swelling, no erythema seen. Principal Diagnosis Generalized weakness Influenza A URTI Likely mild exacerbation of underlying asthma Discharge Exam Constitutional: WD/WN, vitals as above, NAD, sitting up in bed, pleasant, conversing easily Respiratory: normal respiratory effort, lungs clear to auscultation, no wheeze, rales, rhonchi. Normal insp/exp effort, no accessory muscle use Cardiovascular: RRR, no murmur, no edema Vessels: no JVD or carotid bruit Chest: normal inspection of chest Abdomen: normal bowel sounds, soft, nontender, no hepatosplenomegaly Musculoskeletal: no cyanosis or clubbing, extremities motor strength 5/5 Skin: no rashes, warm and dry normal turgor Neurologic: PERRL, EOMI, accommodation nl, no face palsy, no dysarthria CN's II- XI intact bilaterally and moves all extremities Psychiatric: A+Ox3, euthymic affect Discharge Data Allergies Allergy/AdvReac Type Severity Reaction Status Date / Time morphine AdvReac Intermediate Vomiting Verified 10/20/23 07:27 Consultations 09/03/24 15:09 ED Decision to Admit Stat Hospital Course (1) Influenza A: Plan Generalized weakness Influenza A URTI Likely mild exacerbation of underlying asthma Patient had COVID about 3 weeks ago, reports gradually improving 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 Admitting CXR with no acute finding, BMP WNL, troponin WNL. VBG WNL. Respiratory BioFire positive for influenza A. EKG with NSR. During the hospitalization, patient was treated with supportive care, breathing treatment, Tamiflu and steroid. Patient reported significant improvement in her symptoms. PT OT suggested rehab. However, her insurance rejected it; peer to peer was done without any success. Patient was ambulating with a walker inside her room and felt comfortable going home. Patient was discharged home with instructions to follow-up with PCP. Please note the above document was generated using voice recognition software. It may contain grammatical, syntax or spelling errors. Any formal questions or concerns about the content, text or information contained within the body of this dictation should be directly addressed to the provider for clarification Total Time Total Time Spent Total Time Spent (In Minutes): 34 Total Time Includes: Examination of the Patient, Discharge Planning, Medication Reconciliation, Communication With Other Providers and Other Discharge Plan Discharge Items Patient Disposition: Transfer Halfway Fac Reason For Visit: UNABLE TO CARE FOR SELF, FLU A Discharge Diagnosis: Generalized weakness Influenza A URTI Likely mild exacerbation of underlying asthma Activity: Resume your previous activity Non-emergency contact: Primary Care Provider Call non-emergency contact if: you have any medication questions and your symptoms worsen Follow-up/Referrals: Lani Vargas PA-C [Outside Practitioners] - (Date & Time 09/18/2024 12:00 PM Provider: Lani Vargas PA-C [facility] ) Diet: Regular Addtl Attending Provider Instructions: You were admitted to the hospital with flu. You are treated with antiviral during the hospitalization. Please follow-up with your primary care doctor after discharge. Please monitor for any weakness/muscle cramps; the dose of the diuretic might need to be decreased if you experience dizziness, weakness or muscle cramps. Pending Studies at Discharge: No Stand-Alone Forms: My [facility] Skilled Items Patient informed of condition?: No DNR: No Discharge Level of Care: Skilled Communicable Disease: No Discharge Prognosis: Stable Lines: None Urinary Catheter: No Medications and DC Order Prescriptions: Continued methyl salicylate-menthol 15-10 % Cream 1 applic TOPICAL BID PRN (Reason: Pain) multivitamin Tablet 1 tab PO QAM insulin aspart U-100 [Novolog FlexPen U-100 Insulin] 100 unit/mL (3 mL) insulin pen 5 unit subcut BID insulin glargine [Lantus Solostar U-100 Insulin] 100 unit/mL (3 mL) insulin pen 22 unit SUBCUT QAM tramadol 50 mg Tablet 50 mg PO Q6H PRN (Reason: Pain) Qty: 5 0RF ropinirole 0.25 mg Tablet 0.25 mg PO HS Qty: 30 0RF pantoprazole 40 mg tablet,delayed release (DR/EC) 20 mg PO BID Qty: 30 0RF docusate sodium [Colace] 100 mg capsule 100 mg PO DAILY PRN (Reason: Constipation) Qty: 30 0RF albuterol sulfate 90 mcg/actuation HFA aerosol inhaler 2 puff INHALATION QID PRN (Reason: wheezing/SOB) Qty: 8.5 0RF rosuvastatin 5 mg Tablet 5 mg PO QAM Qty: 30 0RF Eliquis 5 mg Tablet 5 mg PO Q12H Qty: 60 0RF Changed furosemide [Lasix] 80 mg tablet 80 mg PO DAILY Qty: 30 0RF spironolactone 50 mg tablet 50 mg PO QAM Qty: 30 0RF Discharge Orders: Discharge Order (Routine); Ordered 09/12/24 Ordered By: Tigre Gay/Other Patient Handouts: Managing Type 2 Diabetes Admission Data Admit Date/Time: 09/03/24 15:15 Attending Provider: Tigre Dow Admit Provider: Marti Pike Primary Care Provider: Jonathan Rees Other Providers: Marti Pike; Bhupendra Marcos,Rehab; [facility]Health; [place]Care
[2024-09-12 12:12] VITALS: PULSE 72
== END 2024-09-12 14:18 | disposition home or self-care (01) | DRG 194 ==
LOC: ED 12:03 → SUATTDRO 15:15 → 2N 15:15